=== PATIENT | female | born 1945 | race Caucasian/White ===

== ENCOUNTER 2019-11-04 10:08 | Outpatient (CLI) | payer MEDICARE, SELFPAY ==
--- NOTE | ~2019-11-04 | CT_ITS ---
EXAMINATION: CT sinus wo con DATE: 11/04/2019 10:40 INDICATION: Chronic sinusitis TECHNIQUE: Computed tomography (CT) of the paranasal sinuses was performed without intravenous contra st. The dose-length product was 278.92 mGy-cm. Automated exposure control and iterative reconstructio n technique were employed. COMPARISON: CT dated 04/13/2013 FINDINGS: There is mild mucosal thickening of the frontal, ethmoid, sphenoid and maxillary sinuses. T here is an air-fluid level in the left maxillary sinus. The ostiomeatal units are patent. Rightward n ken septal deviation. Mastoids are pneumatized. No ventriculomegaly or midline shift. IMPRESSION: 1. Pansinusitis with possible acute left maxillary sinusitis. 2: Rightward nasal septal deviation. Reviewed, dictated and finalized at location A.
== END 2019-11-04 10:09 | disposition home or self-care (01) ==
PROVIDERS: PCP Family Medicine; Visit Provider Otolaryngology
DX: J32.9 Chronic sinusitis, unspecified (principal); J01.40 Acute pansinusitis, unspecified; J34.2 Deviated nasal septum
CPT/HCPCS: 70486

== ENCOUNTER 2019-11-26 15:30 | Outpatient (CLI) | payer MEDICARE, SELFPAY ==
[2019-11-26 15:45] LABS: Hematocrit 44.5 % (35.0-42.0); Hemoglobin 14.5 g/dL (11.7-13.8); Mean Corpuscular HGB Conc 32.6 g/dL (32.0-36.0); Mean Corpuscular Hemoglobin 33.6 pg (27.0-31.0); Mean Corpuscular Volume 103.2 fL (78.0-102.0); Platelet Count Result 275 K/mm3 (150-420); Red Blood Count 4.31 M/mm3 (4.20-5.40); Red Cell Distribution Width 14.6 % (11.6-14.4); White Blood Count 9.1 K/mm3 (4.8-10.8)
[2019-11-26 16:26] LABS: Band Neutrophils Percent 0 % (0-6); Basophils Percent Manual 0 % (0-1); Eosinophils Absolute Manual 1.45 K/mm3 (0.02-0.5); Eosinophils Percent Manual 16 % (1-6); Lymphocytes Percent Manual 22 % (18-44); Monocytes Absolute Manual 0.72 K/mm3 (0.1-0.90); Monocytes Percent Manual 8 % (3-9); Neutrophils Absolute Manual 4.91 K/mm3 (1.7-7.2); Neutrophils Percent Manual 54 % (46-73); Total Cells Counted 100
[2019-11-26 16:27] LABS: Alanine Aminotransferase 25 U/L (14-59); Albumin Level 3.6 g/dL (3.4-5.0); Alkaline Phosphatase 102 U/L (46-116); Anion Gap 9.7 mmol/L (7-16); Aspartate Amino Transferase 22 U/L (15-37); Bilirubin,Total 0.2 mg/dL (0.00-1.00); Blood Urea Nitrogen 12 mg/dL (7-18); Calcium 9.2 mg/dL (8.5-10.1); Carbon Dioxide 31 mmol/L (21-32); Chloride 106 mmol/L (98-108); Estimated Glomerular Filt Rate 40; Glucose 97 mg/dL (70-99); Osmolality Calculated 293 mOsm/kg (285-295); Platelet Estimate Adequate (Adequate); Potassium 4.7 mmol/L (3.5-5.1); Sodium 142 mmol/L (136-145); Total Protein 6.6 g/dL (6.4-8.2)
== END 2019-11-26 15:31 | disposition home or self-care (01) ==
LOC: CHSLAB 15:35
PROVIDERS: PCP Family Medicine
DX: M35.3 Polymyalgia rheumatica (principal); Z79.899 Other long term (current) drug therapy
CPT/HCPCS: 36415; 80053; 85025

== ENCOUNTER 2020-02-20 11:36 | Outpatient (CLI) | payer MEDICARE, SELFPAY ==
[2020-02-20 11:54] LABS: Hematocrit 39.4 % (35.0-42.0); Hemoglobin 13.1 g/dL (11.7-13.8); Mean Corpuscular HGB Conc 33.2 g/dL (32.0-36.0); Mean Corpuscular Hemoglobin 34.2 pg (27.0-31.0); Mean Corpuscular Volume 102.9 fL (78.0-102.0); Mean Platelet Volume 10.9 fl (9.2-11.8); Platelet Count Result 254 K/mm3 (150-420); Red Blood Count 3.83 M/mm3 (4.20-5.40); Red Cell Distribution Width 16.7 % (11.6-14.4); White Blood Count 11.7 K/mm3 (4.8-10.8)
[2020-02-20 12:48] LABS: Alanine Aminotransferase 21 U/L (14-59); Albumin Level 2.9 g/dL (3.4-5.0); Alkaline Phosphatase 90 U/L (46-116); Anion Gap 12.5 mmol/L (7-16); Aspartate Amino Transferase 20 U/L (15-37); Bilirubin,Total 0.4 mg/dL (0.00-1.00); Blood Urea Nitrogen 23 mg/dL (7-18); Calcium 8.7 mg/dL (8.5-10.1); Carbon Dioxide 27 mmol/L (21-32); Chloride 106 mmol/L (98-108); Estimated Glomerular Filt Rate 37; Glucose 88 mg/dL (70-99); Osmolality Calculated 294 mOsm/kg (285-295); Potassium 4.5 mmol/L (3.5-5.1); Sodium 141 mmol/L (136-145)
[2020-02-20 13:29] LABS: Band Neutrophils Percent 0 % (0-6); Eosinophils Absolute Manual 1.87 K/mm3 (0.02-0.5); Eosinophils Percent Manual 16 % (1-6); Lymphocytes Absolute Manual 1.52 K/mm3 (1.1-4.5); Lymphocytes Percent Manual 13 % (18-44); Monocytes Absolute Manual 1.17 K/mm3 (0.1-0.90); Monocytes Percent Manual 10 % (3-9); Neutrophils Absolute Manual 7.13 K/mm3 (1.7-7.2); Neutrophils Percent Manual 61 % (46-73); Platelet Estimate Adequate (Adequate); Total Cells Counted 100
== END 2020-02-20 11:37 | disposition home or self-care (01) ==
PROVIDERS: PCP Family Medicine
DX: Z79.899 Other long term (current) drug therapy (principal)
CPT/HCPCS: 36415; 80053; 85025; 85610

== ENCOUNTER 2020-03-13 11:53 | Emergency (ER) | payer MEDICARE, SELFPAY ==
--- NOTE | ~2020-03-13 | CT_ITS ---
EXAMINATION: CT brain wo con EXAM DATE: 03/13/2020 12:31 INDICATION: Dizziness. TECHNIQUE: Spiral CT of the head was performed without contrast. Axial, coronal and sagittal images were reviewed. The dose-length product (DLP) for this examination was 681.00 mGy-cm. The exposure w as tailored according to patient size, and iterative reconstruction (ASIR) was used as additional dos e reduction technique. Comparison is made to prior examination from 11/04/2019. FINDINGS: There is no acute intraparenchymal hemorrhage. No evidence of intraparenchymal brain mass lesion. No evidence of acute infarction. Please note that initial head CT has limited sensitivity f or small or acute infarctions. 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 There is mild to moderate periventricular and subcortical hypodensity, nonspecific but probably rela baljeet to small vessel ischemic disease. There is mild to moderate prominence of the sulci and ventric les related to cerebral atrophy. There is intracranial carotid arteriosclerosis. There are no extr a-axial collections. There is no mass effect or midline shift. The orbits are unremarkable. Soft t issue is unremarkable. Mild to moderate ethmoid and maxillary sinus mucoperiosteal thickening. There is moderate amount of fluid in the right maxillary sinus, could indicate sinusitis. IMPRESSION: 1. 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 2. Chronic age related findings. 3. Right maxillary sinus air-fluid level, with mild to moderate mucoperiosteal thickening. Possible acute sinusitis. Reviewed, dictated and finalized at location A.
[2020-03-13 11:53] VITALS: BP 100/57; PULSE 140; RESP 18; TEMP 36.4; O2SAT 99
[2020-03-13] MEDS: SODIUM CHLORIDE 0.9% IV 1,000 ML 2000 ML IV CONT (12:05)
--- NOTE | 2020-03-13 12:06 | ECG_ITS ---
Measurements Intervals [place] Rate: 131 P: [place]: 0 QRS: 26 QRSD: 98 T: 89 QT: 309 QTc: 457 Interpretive Statements SUPRAVENTRICULAR TACHYCARDIA NONSPECIFIC ST & T-WAVE ABNORMALITY- DIFFUSE LEADS BASELINE ARTIFACT- I, II, III, AVR, AVL, AVF ABNORMAL ECG Electronically Signed On 03-15-2020 7:01:29 CDT by Andres Mcdonald D.O.
--- NOTE | 2020-03-13 12:10 | ED.GENADULT ---
HPI - General Adult General Chief complaint: Syncope Stated complaint: 74YO female w/ known h.o gait imbalance and celiac disease here c/o dry mouth and dizzines (worse than usual) after she was out last night and ate flour tortillas at a [employer] restaurant. Patient admits to multiple rounds of watery diarrhea followed by dry mouth after which she started feeling dizzy. Her home Bp machine showed she has a rapid pulse and a mildly elevated bp. Here for eval. Related Data Home Medications Medication Instructions Recorded Confirmed clonazepam 2 mg PO DAILY 03/13/20 03/13/20 famotidine 40 mg PO DAILY 03/13/20 03/13/20 levothyroxine 100 mcg PO DAILY 03/13/20 03/13/20 losartan 25 mg PO DAILY 03/13/20 03/13/20 methotrexate sodium See Rx Instructions .ROUTE .COMPLEX 03/13/20 03/13/20 pantoprazole 40 mg PO DAILY 03/13/20 03/13/20 pilocarpine HCl 5 mg PO TID 03/13/20 03/13/20 rivaroxaban [Xarelto] 10 mg PO DAILY 03/13/20 03/13/20 sertraline 100 mg PO DAILY 03/13/20 03/13/20 Allergies Allergy/AdvReac Type Severity Reaction Status Date / Time No Known Allergies Allergy Unverified 12/04/18 09:21 Review of Systems Review of Systems: All systems reviewed & are unremarkable except as noted in HPI and below Constitutional: Constitutional: Reports as per HPI Eyes: Eyes: Reports as per HPI ENT: Reports dizziness (Gait Imbalance) Cardiovascular: Cardiovascular: Reports as per HPI and Reports rapid heart rate Respiratory: Respiratory: Reports as per HPI Gastrointestinal: Gastrointestinal: Reports no additional gastrointestinal complaints and Reports diarrhea Genitourinary: Genitourinary: Reports no additional female genitourinary complaints Musculoskeletal: Musculoskeletal: Reports no additional musculoskeletal complaints Integumentary/Breasts: Skin/Breast: Reports system reviewed and no additional complaints, except as docu Neurologic: Reports dizziness (Gait Imbalance) Psychiatric: Psychiatric: Reports no additional psychiatric complaints Endocrine: Endocrine: Reports no additional endocrine complaints Hematologic/Lymphatic: Hematologic/Lymphatic: Reports no additional hematologic/lymphatic complaints [facility] Past Medical History Medical History (Updated 03/13/20 @ 14:58 by Delta Pollock MD) Anxiety Celiac disease Gait instability GERD (gastroesophageal reflux disease) Hypertension Hypothyroidism Exam Const: General: no acute distress and alert Orientation/consciousness: patient oriented x3 HENMT: Head: normal to inspection Mouth: Yes dry mucous membranes Eyes: Pupils: Equal, round and reactive pupils present Neck: Neck: normal visual inspection Chest: Chest palpation & inspection: normal inspection of the chest Resp: Effort & Inspection: normal respiratory effort Cardio: Rate: tachycardic GI: Inspection: non-distended GI Palp: Yes Soft to palpation, No Tenderness to palpation present (GI), No Guarding due to palpation present (GI) and No Rigid due to palpation Percussion: Yes normal to percussion : General: Yes no CVA tenderness Back/Spine/Pelvis: Back: no CVA tenderness Skin: General skin exam: normal color Neuro: General: patient oriented x3, moves all extremities, no meningeal signs, no focal motor deficits and CN's II-XI intact bilaterally Cranial nerves: Yes Nystagmus not present Speech: normal speech Extrem: General: normal to inspection Psych: Mental Status: mental status grossly normal Thought content: Yes Normal thought content present Course Course Emergency Course: Patient admits to feeling better. MM improved, now moist. Dizziness resolved Medical Decision Making Differential Diagnosis Differential Diagnosis: Dehydration, Dizziness, R/O WELT INSOLE CHANNELER and Cardiac Etiol. Medical Records Medical records reviewed: Yes I reviewed the patient's medical records. Lab Data Lab results reviewed: Yes I reviewed the patient's lab results. Critical Care Time Critical Care Time
[2020-03-13 12:29] LABS: Basophils Absolute Auto 0.02 K/mm3 (0.00-0.10); Basophils Percent Auto 0.3 % (0.0-1.0); Eosinophils Absolute Auto 0.86 K/mm3 (0.02-0.50); Eosinophils Percent Auto 12.8 % (1.0-6.0); Hematocrit 38.3 % (35.0-42.0); Hemoglobin 12.4 g/dL (11.7-13.8); Immature Granulocyte Absolute 0.02 K/mm3 (0.00-0.00); Immature Granulocyte Percent A 0.3 % (0.0-0.0); Lymphocytes Absolute Auto 1.22 K/mm3 (1.10-4.50); Lymphocytes Percent Auto 18.2 % (18.0-42.0); Mean Corpuscular HGB Conc 32.4 g/dL (32.0-36.0); Mean Corpuscular Hemoglobin 33.8 pg (27.0-31.0); Mean Corpuscular Volume 104.4 fL (78.0-102.0); Mean Platelet Volume 10.8 fl (9.2-11.8); Monocytes Absolute Auto 0.62 K/mm3 (0.10-0.90); Monocytes Percent Auto 9.3 % (2.0-11.0); Neutrophils Percent Auto 59.1 % (50.0-70.0); Platelet Count Result 369 K/mm3 (150-420); Red Blood Count 3.67 M/mm3 (4.20-5.40); Red Cell Distribution Width 16.2 % (11.6-14.4); White Blood Count 6.7 K/mm3 (4.8-10.8)
[2020-03-13 12:33] VITALS: BP 104/58; PULSE 124; RESP 16; O2SAT 95
[2020-03-13 12:36] LABS: Partial Thromboplastin Time 32.5 SEC (22.3-31.6); Prothrombin Time 10.5 Seconds (9.64-11.0)
[2020-03-13 12:41] LABS: Alanine Aminotransferase 24 U/L (14-59); Albumin Level 2.7 g/dL (3.4-5.0); Alkaline Phosphatase 80 U/L (46-116); Aspartate Amino Transferase 27 U/L (15-37); Bilirubin,Total 0.4 mg/dL (0.00-1.00); Blood Urea Nitrogen 14 mg/dL (7-18); Calcium 8.3 mg/dL (8.5-10.1); Carbon Dioxide 26 mmol/L (21-32); Chloride 106 mmol/L (98-108); Estimated Glomerular Filt Rate 34; Glucose 138 mg/dL (70-99); Lipase 43 U/L (73-393); Osmolality Calculated 290 mOsm/kg (285-295); Sodium 139 mmol/L (136-145)
[2020-03-13 12:46] LABS: Troponin I < 0.02 ng/mL (0.00-0.056)
[2020-03-13 13:03] VITALS: BP 117/76; PULSE 120; RESP 18; O2SAT 99
[2020-03-13] MEDS: SODIUM CHLORIDE 0.9% IV 1,000 ML 999 ML IV CONT (13:05)
--- NOTE | 2020-03-13 13:30 | PC.NURSE ---
Pt ambulatory to bathroom pt states she is feeling much better. at bedside.
[2020-03-13 13:48] LABS: Add Urine Microscopic? YES; Appearance Urine Clear (Clear); Bilirubin Urine Negative (Negative); Blood Urine Negative (Negative); Color Urine Yellow (Yellow); Glucose Urine UA Negative (Negative); Ketones Urine Negative (Negative); Leukocyte Esterase Ur Negative LEU/UL (Negative); Nitrate Urine Positive (Negative); Protein Urine Negative (Negative); Urobilinogen Urine 0.2 mg/dL (0.2-1.0)
[2020-03-13 14:00] LABS: RBC Urine 0-2 /hpf (0-2)
[2020-03-13 14:01] LABS: Bacteria Urine 1+ /hpf; Squamous Epithelial Cell Urine Few /hpf (Few); WBC Urine 0-3 /hpf (0-3)
[2020-03-13 14:34] VITALS: BP 149/80; PULSE 70; RESP 16; O2SAT 95
== END 2020-03-13 15:10 | disposition home or self-care (01) ==
PROVIDERS: Emergency Provider Family Medicine; PCP Family Medicine
DX: K90.0 Celiac disease (principal); R19.7 Diarrhea, unspecified; R82.90 Unspecified abnormal findings in urine
CPT/HCPCS: 36415; 70450; 80053; 81001; 83690; 84484; 85025; 85610; 85730; 87077; 87086; 87088; 87186; 93005; 96360; 96361; 99283; 99284; J7030

== ENCOUNTER 2020-03-29 11:04 | Outpatient (CLI) | payer MEDICARE, SELFPAY ==
--- NOTE | ~2020-03-29 | CT_ITS ---
EXAMINATION: CT chest wo con DATE: 03/29/2020 11:48 INDICATION: Cough, possible bronchiectasis TECHNIQUE: Computed tomography (CT) of the chest was performed without intravenous contrast. The dose -length product (DLP) was 171.69 mGy-cm. Automated exposure control and iterative reconstruction tech DP7 Digitalque were employed. COMPARISON: 08/26/2019, 11/23/2018 FINDINGS: The lungs are free of acute opacities. There is no pleural effusion or pneumothorax. Nodule s measuring up to 5 mm in the right middle lobe are stable and most consistent with old granulomatous disease. There is mild bronchiectasis of the lower lobes, right greater than left, likely related to prior infections. No pleural effusion or pneumothorax is identified. There is a chronic small perica rdial effusion. Cardiomegaly is noted. There are no pathologically enlarged thoracic lymph nodes. The re is calcified coronary artery atherosclerosis. Breast implants are noted. There is severe atrophy o f the right kidney. There is mild thoracic spondylosis. IMPRESSION: 1. Mild bronchiectasis of the lower lobes, likely reflecting prior infection. 2. Cardiomegaly. Reviewed, dictated and finalized at location A.
== END 2020-03-29 11:05 | disposition home or self-care (01) ==
LOC: CHSIMG 11:07
PROVIDERS: PCP Family Medicine; Visit Provider Nurse Practitioner
DX: J47.9 Bronchiectasis, uncomplicated (principal)
CPT/HCPCS: 71250

== ENCOUNTER 2020-03-30 11:04 | Outpatient (CLI) | payer MEDICARE, SELFPAY ==
[2020-03-30 11:19] LABS: Basophils Absolute Auto 0.05 K/mm3 (0.00-0.10); Basophils Percent Auto 0.7 % (0.0-1.0); Eosinophils Absolute Auto 0.48 K/mm3 (0.02-0.50); Eosinophils Percent Auto 6.9 % (1.0-6.0); Hematocrit 40.1 % (35.0-42.0); Hemoglobin 12.8 g/dL (11.7-13.8); Immature Granulocyte Absolute 0.02 K/mm3 (0.00-0.00); Immature Granulocyte Percent A 0.3 % (0.0-0.0); Lymphocytes Absolute Auto 1.74 K/mm3 (1.10-4.50); Lymphocytes Percent Auto 25.2 % (18.0-42.0); Mean Corpuscular HGB Conc 31.9 g/dL (32.0-36.0); Mean Corpuscular Hemoglobin 33.7 pg (27.0-31.0); Mean Corpuscular Volume 105.5 fL (78.0-102.0); Mean Platelet Volume 10.2 fl (9.2-11.8); Monocytes Absolute Auto 0.66 K/mm3 (0.10-0.90); Monocytes Percent Auto 9.6 % (2.0-11.0); Neutrophils Percent Auto 57.3 % (50.0-70.0); Platelet Count Result 354 K/mm3 (150-420); Red Cell Distribution Width 15.6 % (11.6-14.4); White Blood Count 6.9 K/mm3 (4.8-10.8)
== END 2020-03-30 11:05 | disposition home or self-care (01) ==
LOC: CHSLAB 11:05
PROVIDERS: PCP Nurse Practitioner; Visit Provider Nurse Practitioner
DX: J32.9 Chronic sinusitis, unspecified (principal); J47.9 Bronchiectasis, uncomplicated
CPT/HCPCS: 36415; 82785; 85025; 86003; 86331; 86606; 86609

== ENCOUNTER 2020-04-08 11:57 | Outpatient (CLI) | payer MEDICARE, SELFPAY ==
[2020-04-08 13:21] LABS: Thyroid Stimulating Hormone 2.27 uIU/mL (0.36-3.74)
== END 2020-04-08 11:58 | disposition home or self-care (01) ==
LOC: CHSLAB 12:00
PROVIDERS: PCP Family Medicine
DX: E03.9 Hypothyroidism, unspecified (principal)
CPT/HCPCS: 36415; 84443

== ENCOUNTER 2020-06-22 13:18 | Inpatient (IN) | payer MEDICARE, SELFPAY ==
--- NOTE | ~2020-06-22 | CT_ITS ---
EXAMINATION: CT abdomen pelvis wo con DATE: 06/22/2020 16:05 INDICATION: Diarrhea. Abdominal pain. TECHNIQUE: Computed tomography (CT) of the abdomen and pelvis was performed without intravenous contr ast. Automated exposure control and iterative reconstruction technique were employed. The dose-length product was 576.71 mGy-cm. COMPARISON: None. FINDINGS: The visualized portions of the lung bases demonstrates mild atelectasis and scarring. There is mild bronchiectasis bilaterally. No pleural effusion. The heart size is normal. No pericardial ef fusion. There are bilateral breast implants. The liver is normal. The gallbladder is distended. The s pleen, pancreas, and adrenal glands are normal. There is severe atrophy of right kidney. There are 4 stones in right kidney measuring up to 4 mm. There is cortical thinning of left kidney. There is a 2. 1 cm cyst in left kidney. There are no dilated loops of bowel. The appendix is not visualized. There is an umbilical hernia containing fat. There are no pathologically enlarged lymph nodes. There is no free intraperitoneal fluid. There is mild lumbar spondylosis. IMPRESSION: 1. Gallbladder distention, which may be seen with fasting or acute cholecystitis. Correlate with phys ical exam. 2. Umbilical hernia containing fat. Reviewed, dictated and finalized at location B. SETTERS PRINTER IMPRESSION: 1. Gallbladder distention, which may be seen with fasting or acute cholecystiti s. Correlate with physical exam. 2. Umbilical hernia containing fat.
--- NOTE | ~2020-06-22 | XR_ITS ---
EXAMINATION: XR chest 2V EXAM DATE: 06/22/2020 14:16 INDICATION: diarrhea x 1 week, heart recorder, weakness. TECHNIQUE: Frontal and lateral projections of the chest obtained and reviewed. Comparison is made to prior examination from 12/04/2018, 11/23/2018. FINDINGS: Cardiac monitoring device. Moderate chronic hyperinflation. The lungs are clear. There ar e no pleural effusions. The cardiomediastinal silhouette is within normal limits. There is no pneum othorax suspected. There are mild bony degenerative changes. There is aortic arteriosclerosis. IMPRESSION: 1. No acute cardiopulmonary findings. 2. Hyperinflation. Reviewed, dictated and finalized at location A. ORARY DATA ENTRY CLERK
[2020-06-22 13:25] VITALS: BP 76/52; PULSE 98; RESP 14; TEMP 37; O2SAT 95
[2020-06-22 13:30] VITALS: BP 131/105
--- NOTE | 2020-06-22 13:34 | ED.WEAKNESS ---
HPI - Weakness General Chief complaint: Nausea/Vomiting/Diarrhea Stated complaint: very fatigue fell this am Time Seen by Provider: 06/22/20 13:20 Source: patient Mode of arrival: wheelchair Limitations: no limitations History of Present Illness HPI Narrative: 74-year-old woman with a history of celiac disease comes in today complaining of worsening diarrhea for last week. Patient states last 24 hours was the worst. She states that she has felt weak and even had falls from the weakness. She denies injury. She states that she has had no blood in her stools, nausea, vomiting or cough/cold symptoms or sore throat. She states that she does have some moderate abdominal pain through the duration of this illness. She had some chest discomfort about one week ago, but she attributed that to recent problems she has had with her breast implants. No chest pain or pressure since. She was diagnosed with COVID-19 last month and was managed at home. MD Complaint: generalized weakness Onset (ago): week(s) (1) Duration: progressively worsening Location: generalized Migration: none Severity: moderate Relieving factors: none Exacerbating factors: none Context: recent illness Associated symptoms: other ( Mild right-sided sore throat) Related Data Home Medications Medication Instructions Recorded Confirmed clonazepam 1 mg PO HS PRN 03/13/20 06/22/20 levothyroxine 100 mcg PO DAILY 03/13/20 06/22/20 losartan 25 mg PO DAILY 03/13/20 06/22/20 methotrexate sodium 15 mg PO WEEKLY 03/13/20 06/22/20 pilocarpine HCl 5 mg PO TID 03/13/20 06/22/20 rivaroxaban [Xarelto] 10 mg PO DAILY 03/13/20 06/22/20 sertraline 100 mg PO DAILY 03/13/20 06/22/20 albuterol sulfate [ProAir HFA] 1 inh INHALATION QID PRN 06/22/20 06/22/20 budesonide-formoterol [Symbicort] 2 puff INHALATION BID 06/22/20 06/22/20 calcium carbonate-vitamin D3 [All 1 tablet PO BID 06/22/20 06/22/20 Day Calcium] cholecalciferol (vitamin D3) 10 mcg PO DAILY 06/22/20 06/22/20 [Vitamin D3] docosahexaenoic [id number] E 1,000 cap PO DAILY 06/22/20 06/22/20 [Cardi-Ethel 3] [id number]-[id number]-[id number]-fob-[id number]-st 1 cap PO BID 06/22/20 06/22/20 [Glucosamine Chondroitin PLUS] magnesium 2 tablet PO BID 06/22/20 06/22/20 multivitamin [Daily-Prieto W/Vitamin 1 tablet PO BID 06/22/20 06/22/20 C] omeprazole 20 mg PO DAILY 06/22/20 06/22/20 oxybutynin chloride 10 mg PO DAILY 06/22/20 06/22/20 ropinirole 0.25 mg PO HS 06/22/20 06/22/20 valacyclovir 2,000 mg PO BID 06/22/20 06/22/20 Allergies Allergy/AdvReac Type Severity Reaction Status Date / Time No Known Allergies Allergy Unverified 12/04/18 09:21 Review of Systems Constitutional: Constitutional: Denies chills, Reports fatigue, Denies fever(s) and Reports weakness Eyes: Eyes: Denies change in vision and Denies photophobia ENT: Reports as per HPI, Denies dysphagia, Denies nasal congestion and Reports sore throat Cardiovascular: Cardiovascular: Denies chest pain and Denies radiating jaw, neck or arm pain Respiratory: Respiratory: Reports cough ( for the last year), Denies dyspnea and Denies wheezing Gastrointestinal: Gastrointestinal: Reports abdominal pain, Reports diarrhea, Denies nausea and Denies vomiting Genitourinary: Genitourinary: Denies hematuria, Denies nocturia and Denies dysuria Musculoskeletal: Musculoskeletal: Denies arthralgias and Denies joint swelling Integumentary/Breasts: Skin/Breast: Denies pruritus, Denies erythema and Denies rash Neurologic: Denies vertigo, Reports dizziness and Denies syncope Hematologic/Lymphatic: Hematologic/Lymphatic: Denies easy bleeding and Denies easy bruising Allergic/Immunologic: Allergic/Immunologic: Denies lip swelling, Denies throat swelling and Denies tongue swelling [facility] Past Medical History Medical History (Updated 06/22/20 @ 19:35 by Ferny Sosa MD) Anxiety Celiac disease DVT (deep venous thrombosis) Gait instability GERD (gastroesophageal reflux disease) Hypertension
--- NOTE | 2020-06-22 13:41 | ECG_ITS ---
Measurements Intervals [place] Rate: 103 P: 6 [place]: 145 QRS: 59 QRSD: 82 T: 33 QT: 348 QTc: 457 Interpretive Statements SINUS TACHYCARDIA NONSPECIFIC T-WAVE ABNORMALITY- INF/HIGH LAT LEADS BASELINE ARTIFACT- II, III, AVF ABNORMAL ECG Electronically Signed On 06-22-2020 15:05:19 DOCK HAND by Andres Mcdonald D.O.
[2020-06-22 14:13] LABS: Hematocrit 47.6 % (35.0-42.0); Hemoglobin 15.5 g/dL (11.7-13.8); Mean Corpuscular HGB Conc 32.6 g/dL (32.0-36.0); Mean Corpuscular Volume 101.5 fL (78.0-102.0); Mean Platelet Volume 11.7 fl (9.2-11.8); Platelet Count Result 312 K/mm3 (150-420); Red Blood Count 4.69 M/mm3 (4.20-5.40); Red Cell Distribution Width 16.3 % (11.6-14.4); White Blood Count 15.3 K/mm3 (4.8-10.8)
[2020-06-22 14:26] LABS: INR 1.2; Partial Thromboplastin Time 23.8 SEC (22.3-31.6); Prothrombin Time 12.7 Seconds (9.64-11.0)
[2020-06-22] MEDS: SODIUM CHLORIDE 0.9% IV 1,000 ML 999 ML IV CONT (14:30)
[2020-06-22 14:31] LABS: Alanine Aminotransferase 16 U/L (14-59); Alkaline Phosphatase 114 U/L (46-116); Anion Gap 15 mmol/L (8-16); Aspartate Amino Transferase 11 U/L (15-37); Bilirubin,Total 0.4 mg/dL (0.00-1.00); Blood Urea Nitrogen 25 mg/dL (7-18); Calcium 8.6 mg/dL (8.5-10.1); Carbon Dioxide 19 mmol/L (21-32); Chloride 100 mmol/L (98-108); Estimated CRCL calculation 13 ml/min; Estimated Glomerular Filt Rate 12; Glucose 145 mg/dL (70-99); Lipase 32 U/L (73-393); Osmolality Calculated 285 mOsm/kg (285-295); Potassium 4.3 mmol/L (3.5-5.1); Sodium 134 mmol/L (136-145); Total Protein 7.1 g/dL (6.4-8.2)
[2020-06-22 14:34] LABS: Lactic Acid Reflex 1.8 mmol/L (0.4-2.0)
[2020-06-22 14:38] LABS: Troponin I 0.19 ng/mL (0.00-0.056)
[2020-06-22 14:40] LABS: Band Neutrophils Percent 0 % (0-6); Basophils Percent Manual 0 % (0-1); Eosinophils Absolute Manual 1.07 K/mm3 (0.02-0.5); Eosinophils Percent Manual 7 % (1-6); Lymphocytes Absolute Manual 1.68 K/mm3 (1.1-4.5); Lymphocytes Percent Manual 11 % (18-44); Monocytes Absolute Manual 0.91 K/mm3 (0.1-0.90); Monocytes Percent Manual 6 % (3-9); Neutrophils Absolute Manual 11.62 K/mm3 (1.7-7.2); Neutrophils Percent Manual 76 % (46-73); Platelet Estimate Adequate (Adequate); Total Cells Counted 100
--- NOTE | 2020-06-22 15:36 | PC.NURSE ---
DR ONEYDA YOUNG CALLED FOR CONSULT - [facility]
--- NOTE | 2020-06-22 16:24 | PC.NURSE ---
RN CONTACTED CHARGE NURSE, JOSE, TO REQUEST INPATIENT BED. ROOM 209 PROVIDED. REGISTRATION NOTIFIED.
[2020-06-22 16:39] VITALS: BP 109/62; PULSE 90; RESP 17; O2SAT 95
[2020-06-22 17:19] VITALS: BMI 23.1
[2020-06-22 17:24] LABS: Troponin I 0.22 ng/mL (0.00-0.056)
--- NOTE | 2020-06-22 17:27 | PC.NURSE ---
erp aware of trop being 0.223. denies chest pain
[2020-06-22 17:37] VITALS: BP 102/71; PULSE 102; RESP 18; TEMP 37; O2SAT 94
[2020-06-22] MEDS: valACYclovir HCL 500 MG TABLET 2000 MG PO (17:54)
[2020-06-22] MEDS: SODIUM CHLORIDE 0.9% IV 1,000 ML 200 ML IV CONT ×2 (17:54→23:37)
[2020-06-22] MEDS: MULTIVITAMINS THERAPEUTIC TAB (*BKC) 1 TABLET PO (17:55)
[2020-06-22] MEDS: BUDESONIDE/FORMOTEROL (*SP) 160-4.5 MCG 6 GM INH 2 PUFF INHALATION (17:55)
[2020-06-22 19:00] VITALS: PULSE 110
--- NOTE | 2020-06-22 19:42 | ECG_ITS ---
Measurements Intervals [place] Rate: 102 P: 4 AL: 142 QRS: -5 QRSD: 88 T: 130 QT: 340 QTc: 445 Interpretive Statements SINUS TACHYCARDIA NONSPECIFIC T-WAVE ABNORMALITY- DIFFUSE LEADS BASELINE ARTIFACT- II, III, AVF BORDERLINE ECG Electronically Signed On 06-23-2020 8:50:18 AUTOMOTIVE HEAVY MECHANIC by Andres Mcdonald D.O.
[2020-06-22 20:00] VITALS: BP 99/56; PULSE 98; RESP 18; TEMP 37.4; O2SAT 95
[2020-06-22 20:18] LABS: Anion Gap 12 mmol/L (8-16); Blood Urea Nitrogen 27 mg/dL (7-18); Calcium 7.7 mg/dL (8.5-10.1); Carbon Dioxide 20 mmol/L (21-32); Chloride 104 mmol/L (98-108); Estimated CRCL calculation 11 ml/min; Estimated Glomerular Filt Rate 11; Glucose 122 mg/dL (70-99); Osmolality Calculated 288 mOsm/kg (285-295); Potassium 3.9 mmol/L (3.5-5.1); Sodium 136 mmol/L (136-145)
--- NOTE | 2020-06-22 20:32 | PC.NURSE ---
critical creatinine called to dr. smith. no new orders.
[2020-06-22 20:35] LABS: Troponin I 0.18 ng/mL (0.00-0.056)
[2020-06-22] MEDS: rOPINIRole HCL 0.25 MG TABLET PO (21:11)
[2020-06-23] VITALS (8 sets, daily range): BP systolic 112–128; BP diastolic 70–74; PULSE 70–94; RESP 16–20; TEMP 36.6–37.1; O2SAT 93–98
[2020-06-23 00:54] LABS: Occult Blood Negative (Negative)
[2020-06-23] MEDS: clonazePAM (*CRX) 0.5 MG TABLET 1 MG PO (01:13)
[2020-06-23 02:19] LABS: Troponin I 0.23 ng/mL (0.00-0.056)
--- NOTE | 2020-06-23 02:20 | PC.NURSE ---
Lab called to report critical high troponin value of 0.23.
--- NOTE | 2020-06-23 02:22 | PC.NURSE ---
Called to report critical troponin value to Dr. Sosa. No new orders.
--- NOTE | 2020-06-23 02:24 | PC.NURSE ---
Dr. Sosa called back and gave orders for a brar catheter to be placed. New orders received and noted.
--- NOTE | 2020-06-23 03:15 | PC.NURSE ---
#16 fr. brar inserted without difficulioty, per order.
--- NOTE | 2020-06-23 03:30 | PC.NURSE ---
Urine to lab.
[2020-06-23 03:33] LABS: Add Urine Microscopic? YES; Appearance Urine Clear (Clear); Bilirubin Urine 1+ (Negative); Blood Urine Negative (Negative); Color Urine Yellow (Yellow); Glucose Urine UA Negative (Negative); Ketones Urine Negative (Negative); Leukocyte Esterase Ur Negative LEU/UL (Negative); Nitrate Urine Negative (Negative); Protein Urine Trace (Negative); Specific Grav Ur >= 1.030 (1.010-1.020); Urobilinogen Urine 0.2 mg/dL (0.2-1.0)
[2020-06-23 03:41] LABS: Amorphous Sediment Urine Few; Bacteria Urine 1+ /hpf; RBC Urine 0-2 /hpf (0-2); Squamous Epithelial Cell Urine None seen /hpf (Few); WBC Urine 0-3 /hpf (0-3)
[2020-06-23 05:33] LABS: Hematocrit 37.5 % (35.0-42.0); Mean Corpuscular Hemoglobin 32.4 pg (27.0-31.0); Mean Corpuscular Volume 101.4 fL (78.0-102.0); Platelet Count Result 252 K/mm3 (150-420); Red Cell Distribution Width 16.3 % (11.6-14.4); White Blood Count 15.3 K/mm3 (4.8-10.8)
[2020-06-23] MEDS: LEVOTHYROXINE SODIUM 100 MCG TABLET PO (05:36)
[2020-06-23] MEDS: SODIUM CHLORIDE 0.9% IV 1,000 ML 200 ML IV CONT (05:36)
[2020-06-23 05:54] LABS: Alanine Aminotransferase 13 U/L (14-59); Albumin Level 2.4 g/dL (3.4-5.0); Alkaline Phosphatase 88 U/L (46-116); Anion Gap 10 mmol/L (8-16); Aspartate Amino Transferase 11 U/L (15-37); Bilirubin,Total 0.3 mg/dL (0.00-1.00); Blood Urea Nitrogen 27 mg/dL (7-18); Calcium 7.6 mg/dL (8.5-10.1); Carbon Dioxide 22 mmol/L (21-32); Chloride 106 mmol/L (98-108); Estimated CRCL calculation 14 ml/min; Estimated Glomerular Filt Rate 14; Glucose 94 mg/dL (70-99); Osmolality Calculated 291 mOsm/kg (285-295); Sodium 138 mmol/L (136-145); Total Protein 5.6 g/dL (6.4-8.2)
[2020-06-23 05:56] LABS: Lactic Acid Reflex 0.7 mmol/L (0.4-2.0)
[2020-06-23 06:11] LABS: Troponin I 0.21 ng/mL (0.00-0.056)
--- NOTE | 2020-06-23 06:12 | PC.NURSE ---
Lab called to report critical troponin value of 0.21.
[2020-06-23 06:17] LABS: Band Neutrophils Percent 0 % (0-6); Eosinophils Absolute Manual 2.29 K/mm3 (0.02-0.5); Eosinophils Percent Manual 15 % (1-6); Lymphocytes Absolute Manual 1.83 K/mm3 (1.1-4.5); Lymphocytes Percent Manual 12 % (18-44); Monocytes Absolute Manual 1.53 K/mm3 (0.1-0.90); Monocytes Percent Manual 10 % (3-9); Neutrophils Absolute Manual 9.63 K/mm3 (1.7-7.2); Neutrophils Percent Manual 63 % (46-73); Platelet Estimate Adequate (Adequate); Total Cells Counted 100
--- NOTE | 2020-06-23 06:18 | PC.NURSE ---
Notified Dr. Sosa of pt's critical high troponin of 0.21; No new orders at this time.
--- NOTE | 2020-06-23 06:30 | PC.NURSE ---
Stools remain loose & mucus in them.
[2020-06-23] MEDS: valACYclovir HCL 500 MG TABLET 2000 MG PO (08:54)
[2020-06-23] MEDS: MAGNESIUM OXIDE 400 MG TABLET 800 MG PO ×2 (08:55→20:42)
[2020-06-23] MEDS: PANTOPRAZOLE 40 MG TABLET PO (08:55)
[2020-06-23] MEDS: RIVAROXABAN 10 MG TABLET PO (08:55)
[2020-06-23] MEDS: CHOLECALCIFEROL 400 UNITS TABLET (VIT D) PO (08:55)
[2020-06-23] MEDS: MULTIVITAMINS THERAPEUTIC TAB (*BKC) 1 TABLET PO ×2 (08:56→20:35)
[2020-06-23] MEDS: SERTRALINE HCL 50 MG TABLET 100 MG PO (08:56)
[2020-06-23] MEDS: CALCIUM/VITAMIN D 250 MG TABLET 1 TABLET PO ×2 (08:56→16:38)
[2020-06-23] MEDS: BUDESONIDE/FORMOTEROL (*SP) 160-4.5 MCG 6 GM INH 2 PUFF INHALATION ×2 (08:56→16:38)
--- NOTE | 2020-06-23 09:23 | PM.IMHP ---
H&P: HPI History of Present Illness Date/Time: 06/23/20 09:23 Chief complaint: acute renal failure elevated troponin Narrative: Diane Silva is a 74 year old female who has a history of celiac sprue and diarrhea that has been lasting for approximately week. Patient states she has a long history of feeling off balance and states that nothing has been done about it. Patient denies any blood in her stool, no N/V, no fevers, and states she has never been told she has had kidney problems. He admits to some abdominal cramping. Patient admits to chest pressure a came and went about a week ago. And according to ER report she was COVID positive about 1 month ago. Review of Systems Constitutional: Constitutional: Denies body ache(s), Denies chills, Denies fatigue, Denies fever(s) and Reports other (Has been feeling off balance for a long time) Cardiovascular: Cardiovascular: Denies chest pain, Denies chest pain at rest and Denies chest pain with activity Comments: as noted in HPI at chest pressure but this is no longer present Respiratory: Respiratory: Reports no additional respiratory complaints, Denies chest congestion, Denies cough, Denies dyspnea and Denies dyspnea on exertion Gastrointestinal: Gastrointestinal: Reports as per HPI Genitourinary: Genitourinary: Reports no additional female genitourinary complaints Neurologic: Reports as per HPI [facility] Past Medical History Medical History (Updated 06/23/20 @ 09:44 by MERT Blue) Anxiety Celiac disease DVT (deep venous thrombosis) Gait instability GERD (gastroesophageal reflux disease) Hypertension Hypothyroidism Surgical History Surgical History H/O shoulder surgery History of appendectomy History of Family History Family History Father Cerebrovascular accident Social History Social History Smoking status: Never smoker Alcohol intake: current Drinks per week: 1 Substance use: never Substance use type: does not use Living arrangements: with family Gender identity (if verbalized by the patient): Female Sexual Orientation (if Verbalized by the Patient): Straight or Heterosexual Spiritual care concerns: No Meds Home Medications and Allergies Home Medications Medication Instructions Recorded Confirmed Type clonazepam 1 mg PO HS PRN 03/13/20 06/22/20 History levothyroxine 100 mcg PO DAILY 03/13/20 06/22/20 History losartan 25 mg PO DAILY 03/13/20 06/22/20 History methotrexate sodium 15 mg PO WEEKLY 03/13/20 06/22/20 History pilocarpine HCl 5 mg PO TID 03/13/20 06/22/20 History rivaroxaban [Xarelto] 10 mg PO DAILY 03/13/20 06/22/20 History sertraline 100 mg PO DAILY 03/13/20 06/22/20 History albuterol sulfate [ProAir HFA] 1 inh INHALATION QID PRN 06/22/20 06/22/20 History budesonide-formoterol [Symbicort] 2 puff INHALATION BID 06/22/20 06/22/20 History calcium carbonate-vitamin D3 [All 1 tablet PO BID 06/22/20 06/22/20 History Day Calcium] cholecalciferol (vitamin D3) 10 mcg PO DAILY 06/22/20 06/22/20 History [Vitamin D3] docosahexaenoic beiz-hgb-kfh E 1,000 cap PO DAILY 06/22/20 06/22/20 History [Cardi-[place] 3] ludf-[id number]-[id number]-uic-jkf-bjne-st 1 cap PO BID 06/22/20 06/22/20 History [Glucosamine Chondroitin PLUS] magnesium 2 tablet PO BID 06/22/20 06/22/20 History multivitamin [Daily-Prieto W/Vitamin 1 tablet PO BID 06/22/20 06/22/20 History C] omeprazole 20 mg PO DAILY 06/22/20 06/22/20 History oxybutynin chloride 10 mg PO DAILY 06/22/20 06/22/20 History ropinirole 0.25 mg PO HS 06/22/20 06/22/20 History valacyclovir 2,000 mg PO BID 06/22/20 06/22/20 History Allergies Allergy/AdvReac Type Severity Reaction Status Date / Time No Known Allergies Allergy Unverified 12/04/18 09:21 Vital Signs Vital Signs - 24 hr 06/22/20 13:2
[2020-06-23] MEDS: LOPERAMIDE HCL 2 MG CAPSULE PO ×3 (10:00→22:15)
[2020-06-23] MEDS: MECLIZINE HCL 25 MG TABLET PO ×2 (10:11→20:30)
--- NOTE | 2020-06-23 10:28 | PC.NURSE ---
pt misunderstood the need for stool sample and took hat out of toliet and then flushed. but did put call light on to tell us she had bm
[2020-06-23] MEDS: SODIUM CHLORIDE 0.9% IV 1,000 ML 70 ML IV CONT (17:00)
--- NOTE | 2020-06-23 17:23 | PC.NURSE ---
patient had sm loose stool at this time. requests prn for loose stools but c/o that it makes her itch and manager global said to ask for benedryl on next need for imodium. patient claims stomach is feeling more bloated and has a sour feeling in belly and with that a very large exsplosive emesis. erp aware of of above and new orders. claims after emesis still feels like there is something in back of throat and still feels a little n/v. sitting up in recliner.
--- NOTE | 2020-06-23 17:51 | PC.NURSE ---
MD notified that patient continues to c/o nausea and abd pain. Patient had diarrhea and emisis that appear the same watery brown liquid with some food particles present. New order to monitor and report if problem continues.
[2020-06-23] MEDS: diphenhydrAMINE HCl INJ 50 MG/ML VIAL (18:12)
[2020-06-23] MEDS: ONDANSETRON INJ 4 MG/2 ML VIAL (18:14)
--- NOTE | 2020-06-23 20:56 | PC.NURSE ---
claims stomach at this time is sore but not nauseated. abd still bloated feeling. flushed toliet but claims sm amt of loose stool. requests all of mena meds and prn imodium. sips on chicken broth and jello. talks on phone. ivf cont. maykel has sirisha urine.
[2020-06-23] MEDS: rOPINIRole HCL 0.5 MG TABLET 0.25 MG PO (22:12)
[2020-06-23] MEDS: diphenhydrAMINE HCl INJ 50 MG/ML VIAL 25 MG IV PUSH (22:15)
[2020-06-24] VITALS: BP 164/84; PULSE 85; RESP 18; TEMP 36.4; O2SAT 94
[2020-06-24] MEDS: clonazePAM (*CRX) 0.5 MG TABLET 1 MG PO (00:16)
[2020-06-24] MEDS: ONDANSETRON INJ 4 MG/2 ML VIAL IV PUSH ×3 (00:16→19:32)
[2020-06-24] MEDS: LOPERAMIDE HCL 2 MG CAPSULE PO ×3 (00:17→19:33)
[2020-06-24 04:00] VITALS: BP 128/68; PULSE 79; RESP 16; TEMP 36; O2SAT 92
--- NOTE | 2020-06-24 04:11 | PC.NURSE ---
Dr. Smith notified of pt's stool having redness present; New orders received and noted.
[2020-06-24 05:11] LABS: Occult Blood Positive (Negative)
[2020-06-24 05:42] LABS: Basophils Absolute Auto 0.03 K/mm3 (0.00-0.10); Basophils Percent Auto 0.2 % (0.0-1.0); Eosinophils Absolute Auto 0.93 K/mm3 (0.02-0.50); Eosinophils Percent Auto 6.2 % (1.0-6.0); Hematocrit 38.8 % (35.0-42.0); Hemoglobin 12.8 g/dL (11.7-13.8); Immature Granulocyte Absolute 0.06 K/mm3 (0.00-0.00); Immature Granulocyte Percent A 0.4 % (0.0-0.0); Lymphocytes Absolute Auto 1.61 K/mm3 (1.10-4.50); Lymphocytes Percent Auto 10.8 % (18.0-42.0); Mean Corpuscular Hemoglobin 32.6 pg (27.0-31.0); Mean Corpuscular Volume 98.7 fL (78.0-102.0); Mean Platelet Volume 12.4 fl (9.2-11.8); Monocytes Absolute Auto 1.15 K/mm3 (0.10-0.90); Monocytes Percent Auto 7.7 % (2.0-11.0); Neutrophils Absolute Auto 11.2 K/mm3 (1.7-7.2); Neutrophils Percent Auto 74.7 % (50.0-70.0); Platelet Count Result 239 K/mm3 (150-420); Red Blood Count 3.93 M/mm3 (4.20-5.40); Red Cell Distribution Width 15.9 % (11.6-14.4)
[2020-06-24 05:57] LABS: Alanine Aminotransferase 14 U/L (14-59); Albumin Level 2.4 g/dL (3.4-5.0); Alkaline Phosphatase 94 U/L (46-116); Anion Gap 11 mmol/L (8-16); Aspartate Amino Transferase 14 U/L (15-37); Bilirubin,Total 0.5 mg/dL (0.00-1.00); Blood Urea Nitrogen 28 mg/dL (7-18); Carbon Dioxide 23 mmol/L (21-32); Chloride 105 mmol/L (98-108); Estimated CRCL calculation 23 ml/min; Estimated Glomerular Filt Rate 25; Glucose 115 mg/dL (70-99); Magnesium 1.6 mg/dL (1.8-2.4); Osmolality Calculated 294 mOsm/kg (285-295); Potassium 3.8 mmol/L (3.5-5.1); Sodium 139 mmol/L (136-145); Total Protein 5.2 g/dL (6.4-8.2)
[2020-06-24] MEDS: LEVOTHYROXINE SODIUM 100 MCG TABLET PO (06:06)
[2020-06-24] MEDS: SODIUM CHLORIDE 0.9% IV 1,000 ML 70 ML IV CONT ×2 (06:06→21:55)
[2020-06-24 07:30] VITALS: BP 132/72; PULSE 79; RESP 18; TEMP 36.4; O2SAT 95
--- NOTE | 2020-06-24 07:54 | PC.NURSE ---
CURING SUPERVISOR in to see patient, continues to have watery bloody BM at this time, brar patent and draining, feeling more weak today
--- NOTE | 2020-06-24 08:19 | PM.IMPN ---
Progress Note: A&P Assessment and Plan (1) Acute dehydration: Code(s): E86.0 - Dehydration Status: Acute Assessment and Plan: 06/23/2020 1 bolus normal saline given in ER with NS at 70 mL/H per hour thereafter, renal function has improved this morning, will continue to monitor, patient is taking oral fluids but likely not enough as this may be upsetting her stomach 06/24/2020 normal saline continues as above, patient continues to attempt oral fluid however did start a few episodes of vomiting today, patient given Zofran and Compazine will see how this affects her nausea and vomiting (2) Diarrhea: Qualifiers: Diarrhea type: unspecified type Qualified Code(s): R19.7 - Diarrhea, unspecified Code(s): R19.7 - Diarrhea, unspecified Status: Acute Assessment and Plan: 06/23/2020 patient was given Imodium, negative fecal WBC, negative for C diff, negative occult blood in stool, stool for O&P pending 06/24/2020 occult stool was positive, there was minimal blood in the liquid stool without clots (3) Elevated troponin: Code(s): R77.8 - Other specified abnormalities of plasma proteins Status: Acute Assessment and Plan: 06/23/2020 troponins have been between 0.18 and 0.22 to likely related to acute renal failure, no chest pain or pressure at this time, vital signs stable, telemetry shows sinus rhythm at this time 06/24/2020 patient remains without symptoms (4) Gait instability: Code(s): R26.81 - Unsteadiness on feet Status: Acute Assessment and Plan: 06/23/2020 I saw patient walking in her room without difficulty, due to patient's history of balance issues started Antivert 25 b.i.d. 06/24/2020 patient has not complained of balance issues after Antivert have been started will address this again tomorrow (5) Celiac disease: Code(s): K90.0 - Celiac disease Status: Acute Assessment and Plan: 06/23/2020 heart healthy gluten free diet (6) Hypertension: Code(s): I10 - Essential (primary) hypertension Status: Acute Assessment and Plan: 06/23/2020 at this time vital signs are stable, losartan held due to renal function, will continue to monitor and make medication changes as needed 06/24/2020 continue as above (7) Hypothyroidism: Code(s): E03.9 - Hypothyroidism, unspecified Status: Acute Assessment and Plan: 06/23/2020 continue her thyroid medication (8) Acute renal failure: Code(s): N17.9 - Acute kidney failure, unspecified Status: Acute Assessment and Plan: 06/23/2020 BUN/CR 27/3.28, will continue to monitor, gentle hydration with normal saline 70 mL/ H, encouraging p.o. fluids, CT report shows severe right kidney atrophy, for stones in the right kidney largest 4 mm, cortical thinning left kidney with 2.1 cm cyst 06/24/2020 renal function has improved please refer to labs above (9) UTI (urinary tract infection): Code(s): N39.0 - Urinary tract infection, site not specified Status: Acute Assessment and Plan: 06/24/2020 UA from earlier in admission appear to be relatively clean with only 1+ bacteria and negative for nitrites, culture came back positive for E coli, surely related to her diarrhea, Rocephin started today (10) GI bleed: Code(s): K92.2 - Gastrointestinal hemorrhage, unspecified Status: Acute Assessment and Plan: 06/24/2020 this started early this morning with 2-3 episodes at approximately 3:00 a.m., Xarelto was stopped, patient did not have another episode until approximately 2:00 p.m. which was a small bleed at that time as well, spoke with patient's GI team who confirmed what the patient's daughter was informed that they would not do anything different at that facility than what we are currently doing here, H&H remained stable 12.8 / 38.8, will monitor this as well Subjective Date/time seen: 06/24/20 08:19 this morning
[2020-06-24 08:28] LABS: INR 1.2; Prothrombin Time 12.7 Seconds (9.64-11.0)
[2020-06-24] MEDS: MAGNESIUM SULF 4 GM/WATER100ML 4 GM/100 ML BAG IVPB (08:55)
[2020-06-24] MEDS: BUDESONIDE/FORMOTEROL (*SP) 160-4.5 MCG 6 GM INH 2 PUFF INHALATION (09:01)
[2020-06-24] MEDS: MAGNESIUM OXIDE 400 MG TABLET 800 MG PO (09:02)
[2020-06-24] MEDS: MECLIZINE HCL 25 MG TABLET PO (09:02)
[2020-06-24] MEDS: MULTIVITAMINS THERAPEUTIC TAB (*BKC) 1 TABLET PO (09:03)
[2020-06-24] MEDS: SERTRALINE HCL 50 MG TABLET 100 MG PO (09:03)
[2020-06-24] MEDS: CHOLECALCIFEROL 400 UNITS TABLET (VIT D) PO (09:03)
[2020-06-24] MEDS: CALCIUM/VITAMIN D 250 MG TABLET 1 TABLET PO (09:04)
[2020-06-24] MEDS: PANTOPRAZOLE 40 MG TABLET PO (09:04)
[2020-06-24] MEDS: OMEGA 3 POLYUNSAT FATTY ACIDS 1 GM CAP PO (09:05)
--- NOTE | 2020-06-24 10:15 | PC.NURSE ---
Feeling nauseated, no emesis, no further BM at this time, brar patent and draining
--- NOTE | 2020-06-24 10:40 | PC.NURSE ---
Napping at intervals, fluids infusing, no vomiting, just nauseated at times,
[2020-06-24 12:00] VITALS: BP 144/71; PULSE 79; RESP 18; TEMP 36.1; O2SAT 95
--- NOTE | 2020-06-24 12:50 | PC.NURSE ---
Up to commode, moderate amount 200ml of liquid stool mixed with blood
--- NOTE | 2020-06-24 14:03 | PC.NURSE ---
Emesis noted, 700ml at this time encouraged to take small sips of water
--- NOTE | 2020-06-24 14:45 | PC.NURSE ---
having abdominal cramping, loose stools, more brown with hints of red at this time, brar patent and draining, fluids infusing, no more emesis but feels like she could, encouraged to chew on sips of water
[2020-06-24] MEDS: PROCHLORPERAZINE EDISYLATE 10 MG/2 ML VIAL IV PUSH (15:39)
[2020-06-24] MEDS: DIPHENOXYLATE/ATROPINE (*CRX) 2.5 MG TABLET 2 TABLET PO (15:41)
[2020-06-24 16:00] VITALS: BP 176/87; PULSE 81; RESP 18; TEMP 36; O2SAT 98
--- NOTE | 2020-06-24 17:13 | PC.NURSE ---
nausea and watery stools with blood continue at this time,. abd cramping un improved since IV compazine,
--- NOTE | 2020-06-24 18:04 | PC.NURSE ---
large bloody watery stool noted, returned to bed, fluids infusing, did take in a small amount of yellow jello this evening and kept it down, still just doesn't feel well
[2020-06-24 20:00] VITALS: BP 116/75; PULSE 90; RESP 16; TEMP 35.8; O2SAT 97
--- NOTE | 2020-06-24 20:42 | PC.NURSE ---
Patient has experienced 2 liquid stools with abdominal cramping.Stool Dark red and frothy. Was able to keep one dose of lomotil down after receiving zofran IV prior to administration
[2020-06-25] VITALS: BP 114/72; PULSE 90; RESP 16; TEMP 36.2; O2SAT 93
[2020-06-25 04:00] VITALS: BP 111/62; PULSE 100; RESP 18; TEMP 36; O2SAT 93
[2020-06-25 05:55] LABS: Hematocrit 42.1 % (35.0-42.0); Hemoglobin 13.8 g/dL (11.7-13.8); Mean Corpuscular HGB Conc 32.8 g/dL (32.0-36.0); Mean Corpuscular Hemoglobin 32.2 pg (27.0-31.0); Mean Corpuscular Volume 98.4 fL (78.0-102.0); Mean Platelet Volume 12.4 fl (9.2-11.8); Platelet Count Result 168 K/mm3 (150-420); Red Blood Count 4.28 M/mm3 (4.20-5.40); White Blood Count 15.6 K/mm3 (4.8-10.8)
[2020-06-25] MEDS: LEVOTHYROXINE SODIUM 100 MCG TABLET PO (06:00)
[2020-06-25 06:06] LABS: Anion Gap 13 mmol/L (8-16); Blood Urea Nitrogen 33 mg/dL (7-18); Carbon Dioxide 19 mmol/L (21-32); Chloride 104 mmol/L (98-108); Estimated CRCL calculation 19 ml/min; Estimated Glomerular Filt Rate 19; Glucose 140 mg/dL (70-99); Magnesium 2.8 mg/dL (1.8-2.4); Osmolality Calculated 291 mOsm/kg (285-295); Sodium 136 mmol/L (136-145)
[2020-06-25 07:37] VITALS: BP 124/74; PULSE 87; RESP 18; TEMP 36.3; O2SAT 94
--- NOTE | 2020-06-25 08:16 | PM.IMPN ---
Progress Note: A&P Assessment and Plan (1) Acute dehydration: Code(s): E86.0 - Dehydration Status: Acute Assessment and Plan: 06/23/2020 1 bolus normal saline given in ER with NS at 70 mL/H per hour thereafter, renal function has improved this morning, will continue to monitor, patient is taking oral fluids but likely not enough as this may be upsetting her stomach 06/24/2020 normal saline continues as above, patient continues to attempt oral fluid however did start a few episodes of vomiting today, patient given Zofran and Compazine will see how this affects her nausea and vomiting 06/25/2020 patient still having a little difficulty with consuming fluids, kidney function also took a step backwards, increased IV fluids to 100 mL/H, encouraged patient to ask for Zofran prior to meal times for a goal of better tolerating oral intake, patient states she is worried of vomiting again (2) Diarrhea: Qualifiers: Diarrhea type: unspecified type Qualified Code(s): R19.7 - Diarrhea, unspecified Code(s): R19.7 - Diarrhea, unspecified Status: Acute Assessment and Plan: 06/23/2020 patient was given Imodium, negative fecal WBC, negative for C diff, negative occult blood in stool, stool for O&P pending 06/24/2020 occult stool was positive, there was minimal blood in the liquid stool without clots 06/25/2020 patient states the cramping in her abdomen is less, and she has not had any diarrhea episodes today (3) Elevated troponin: Code(s): R77.8 - Other specified abnormalities of plasma proteins Status: Acute Assessment and Plan: 06/23/2020 troponins have been between 0.18 and 0.22 to likely related to acute renal failure, no chest pain or pressure at this time, vital signs stable, telemetry shows sinus rhythm at this time 06/24/2020 patient remains without symptoms 06/25/2020 remained symptom-free (4) Gait instability: Code(s): R26.81 - Unsteadiness on feet Status: Acute Assessment and Plan: 06/23/2020 I saw patient walking in her room without difficulty, due to patient's history of balance issues started Antivert 25 b.i.d. 06/24/2020 patient has not complained of balance issues after Antivert have been started will address this again tomorrow 06/25/2020 no reports of being off balance (5) Celiac disease: Code(s): K90.0 - Celiac disease Status: Acute Assessment and Plan: 06/23/2020 heart healthy gluten free diet 06/25/2020 continue with heart healthy gluten free diet and added Ensure (6) Hypertension: Code(s): I10 - Essential (primary) hypertension Status: Acute Assessment and Plan: 06/23/2020 at this time vital signs are stable, losartan held due to renal function, will continue to monitor and make medication changes as needed 06/24/2020 continue as above 06/25/2020 vital signs stable, room air SpO2 93% or better, afebrile (7) Hypothyroidism: Code(s): E03.9 - Hypothyroidism, unspecified Status: Acute Assessment and Plan: 06/23/2020 continue her thyroid medication (8) Acute renal failure: Code(s): N17.9 - Acute kidney failure, unspecified Status: Acute Assessment and Plan: 06/23/2020 BUN/CR 27/3.28, will continue to monitor, gentle hydration with normal saline 70 mL/ H, encouraging p.o. fluids, CT report shows severe right kidney atrophy, for stones in the right kidney largest 4 mm, cortical thinning left kidney with 2.1 cm cyst 06/24/2020 renal function has improved please refer to labs above 06/25/2020 renal function took a step backwards today BUN 33 creatinine 2.47 clearance down the 19 GFR also at 19, IV fluids increased to 100 mL/h, encouraging p.o. fluids (9) UTI (urinary tract infection): Code(s): N39.0 - Urinary tract infection, site not specified Status: Acute Assessment and Plan: 06/24/2020 UA from earlier in admission appear to be relative
[2020-06-25] MEDS: BUDESONIDE/FORMOTEROL (*SP) 160-4.5 MCG 6 GM INH 2 PUFF INHALATION ×2 (08:44→17:06)
[2020-06-25] MEDS: MAGNESIUM OXIDE 400 MG TABLET 800 MG PO ×2 (08:47→17:07)
[2020-06-25] MEDS: OMEGA 3 POLYUNSAT FATTY ACIDS 1 GM CAP PO (08:47)
[2020-06-25] MEDS: CALCIUM/VITAMIN D 250 MG TABLET 1 TABLET PO ×2 (08:48→17:07)
[2020-06-25] MEDS: MULTIVITAMINS THERAPEUTIC TAB (*BKC) 1 TABLET PO ×2 (08:48→17:07)
[2020-06-25] MEDS: SERTRALINE HCL 50 MG TABLET 100 MG PO (08:48)
[2020-06-25] MEDS: MECLIZINE HCL 25 MG TABLET PO ×2 (08:49→17:07)
[2020-06-25] MEDS: PANTOPRAZOLE 40 MG TABLET PO (08:49)
[2020-06-25] MEDS: CHOLECALCIFEROL 400 UNITS TABLET (VIT D) PO (08:49)
[2020-06-25] MEDS: ONDANSETRON INJ 4 MG/2 ML VIAL IV PUSH ×3 (09:34→21:43)
--- NOTE | 2020-06-25 09:39 | PC.NURSE ---
zofran given for nausea after taking am meds, no emesis at this time, will monitor closely
[2020-06-25] MEDS: SODIUM CHLORIDE 0.9% IV 1,000 ML 100 ML IV CONT ×2 (10:52→21:06)
[2020-06-25] MEDS: PROCHLORPERAZINE EDISYLATE 10 MG/2 ML VIAL IV PUSH (10:56)
--- NOTE | 2020-06-25 11:07 | PC.NURSE ---
No vomiting at this time, still feels nauseated and abdominal cramping has returned, compazine given for complaint, fluids infusing att his time
[2020-06-25 12:00] VITALS: BP 128/75; PULSE 91; RESP 18; TEMP 36; O2SAT 95
--- NOTE | 2020-06-25 12:43 | PC.NURSE ---
called to room, x1 large liquid blood stool, 200 ml noted
--- NOTE | 2020-06-25 14:04 | PC.NURSE ---
small size of loose bloody stool noted, hospitalist aware of stools today
[2020-06-25 14:45] LABS: Hematocrit 37.1 % (35.0-42.0); Hemoglobin 12.1 g/dL (11.7-13.8)
[2020-06-25 16:00] VITALS: BP 140/80; PULSE 84; RESP 18; TEMP 36.6; O2SAT 95
[2020-06-25] MEDS: LOPERAMIDE HCL 2 MG CAPSULE PO ×2 (17:29→21:44)
--- NOTE | 2020-06-25 19:42 | PC.NURSE ---
1730 had 200ml of liquid brown stool and approx 300ml of yellow green emesis. prn meds given. erp aware.
--- NOTE | 2020-06-25 19:44 | PC.NURSE ---
1800 rests quietly in bed with cool cloth on forehead. no furthor c/o
[2020-06-25 20:00] VITALS: BP 139/82; PULSE 102; RESP 18; TEMP 36.1; O2SAT 93
[2020-06-25] MEDS: rOPINIRole HCL 0.5 MG TABLET 0.25 MG PO (21:43)
[2020-06-26] VITALS: BP 119/60; PULSE 84; RESP 16; TEMP 36.8; O2SAT 94
--- NOTE | 2020-06-26 01:00 | PM.EVENT ---
Event Note Event Note Event Note: For 06/25: I have examined the patient and reviewed the chart. I discussed the patient's care with Rosa Maria Costa APN and agree with his assessment and plan.
[2020-06-26 04:00] VITALS: BP 122/56; PULSE 78; RESP 16; TEMP 36.6; O2SAT 93
[2020-06-26 05:50] LABS: Hemoglobin 10.8 g/dL (11.7-13.8); Mean Corpuscular HGB Conc 32.7 g/dL (32.0-36.0); Mean Corpuscular Hemoglobin 32.6 pg (27.0-31.0); Mean Corpuscular Volume 99.7 fL (78.0-102.0); Mean Platelet Volume 12.4 fl (9.2-11.8); Platelet Count Result 112 K/mm3 (150-420); Red Blood Count 3.31 M/mm3 (4.20-5.40); Red Cell Distribution Width 15.9 % (11.6-14.4); White Blood Count 14.1 K/mm3 (4.8-10.8)
[2020-06-26] MEDS: LEVOTHYROXINE SODIUM 100 MCG TABLET PO (05:58)
[2020-06-26] MEDS: SODIUM CHLORIDE 0.9% IV 1,000 ML 100 ML IV CONT (05:58)
[2020-06-26 06:05] LABS: Anion Gap 9 mmol/L (8-16); Blood Urea Nitrogen 39 mg/dL (7-18); Calcium 7.8 mg/dL (8.5-10.1); Carbon Dioxide 23 mmol/L (21-32); Chloride 105 mmol/L (98-108); Estimated CRCL calculation 19 ml/min; Estimated Glomerular Filt Rate 19; Glucose 88 mg/dL (70-99); Osmolality Calculated 292 mOsm/kg (285-295); Potassium 3.9 mmol/L (3.5-5.1); Sodium 137 mmol/L (136-145)
[2020-06-26 08:00] VITALS: BP 116/60; PULSE 76; RESP 20; TEMP 36.5; O2SAT 94
[2020-06-26] MEDS: OMEGA 3 POLYUNSAT FATTY ACIDS 1 GM CAP PO (09:30)
[2020-06-26] MEDS: BUDESONIDE/FORMOTEROL (*SP) 160-4.5 MCG 6 GM INH 2 PUFF INHALATION ×2 (09:30→17:48)
[2020-06-26] MEDS: CALCIUM/VITAMIN D 250 MG TABLET 1 TABLET PO ×2 (09:30→17:48)
[2020-06-26] MEDS: CHOLECALCIFEROL 400 UNITS TABLET (VIT D) PO (09:31)
[2020-06-26] MEDS: SERTRALINE HCL 50 MG TABLET 100 MG PO (09:31)
[2020-06-26] MEDS: MAGNESIUM OXIDE 400 MG TABLET 800 MG PO ×2 (09:31→17:48)
[2020-06-26] MEDS: PANTOPRAZOLE 40 MG TABLET PO (09:31)
[2020-06-26] MEDS: MECLIZINE HCL 25 MG TABLET PO ×2 (09:31→17:48)
[2020-06-26] MEDS: MULTIVITAMINS THERAPEUTIC TAB (*BKC) 1 TABLET PO ×2 (09:31→17:48)
[2020-06-26] MEDS: PROCHLORPERAZINE EDISYLATE 10 MG/2 ML VIAL IV PUSH (10:39)
[2020-06-26 12:00] VITALS: BP 157/81; PULSE 102; RESP 18; TEMP 37; O2SAT 93
--- NOTE | 2020-06-26 14:09 | PM.IMPN ---
Progress Note: A&P Assessment and Plan (1) Acute dehydration: Code(s): E86.0 - Dehydration Status: Acute Assessment and Plan: 06/23/2020 1 bolus normal saline given in ER with NS at 70 mL/H per hour thereafter, renal function has improved this morning, will continue to monitor, patient is taking oral fluids but likely not enough as this may be upsetting her stomach 06/24/2020 normal saline continues as above, patient continues to attempt oral fluid however did start a few episodes of vomiting today, patient given Zofran and Compazine will see how this affects her nausea and vomiting 06/25/2020 patient still having a little difficulty with consuming fluids, kidney function also took a step backwards, increased IV fluids to 100 mL/H, encouraged patient to ask for Zofran prior to meal times for a goal of better tolerating oral intake, patient states she is worried of vomiting again 06/26/2020 patient still trying to take oral fluids, she is not eating very well, will change IV fluids over the D5NS (2) Diarrhea: Qualifiers: Diarrhea type: unspecified type Qualified Code(s): R19.7 - Diarrhea, unspecified Code(s): R19.7 - Diarrhea, unspecified Status: Acute Assessment and Plan: 06/23/2020 patient was given Imodium, negative fecal WBC, negative for C diff, negative occult blood in stool, stool for O&P pending 06/24/2020 occult stool was positive, there was minimal blood in the liquid stool without clots 06/25/2020 patient states the cramping in her abdomen is less, and she has not had any diarrhea episodes today 06/26/2020 episodes of diarrhea have decreased, stool for O&P negative except Campylobacter results are pending (3) Elevated troponin: Code(s): R77.8 - Other specified abnormalities of plasma proteins Status: Acute Assessment and Plan: 06/23/2020 troponins have been between 0.18 and 0.22 to likely related to acute renal failure, no chest pain or pressure at this time, vital signs stable, telemetry shows sinus rhythm at this time 06/24/2020 patient remains without symptoms 06/25/2020 remained symptom-free 06/26/2020 remains asymptomatic (4) Gait instability: Code(s): R26.81 - Unsteadiness on feet Status: Acute Assessment and Plan: 06/23/2020 I saw patient walking in her room without difficulty, due to patient's history of balance issues started Antivert 25 b.i.d. 06/24/2020 patient has not complained of balance issues after Antivert have been started will address this again tomorrow 06/25/2020 no reports of being off balance 06/26/2020 patient has not reported any issues (5) Celiac disease: Code(s): K90.0 - Celiac disease Status: Acute Assessment and Plan: 06/23/2020 heart healthy gluten free diet 06/25/2020 continue with heart healthy gluten free diet and added Ensure 06/26/2020 no changes at this time (6) Hypertension: Code(s): I10 - Essential (primary) hypertension Status: Acute Assessment and Plan: 06/23/2020 at this time vital signs are stable, losartan held due to renal function, will continue to monitor and make medication changes as needed 06/24/2020 continue as above 06/25/2020 vital signs stable, room air SpO2 93% or better, afebrile 06/26/2020 vital signs stable, afebrile (7) Hypothyroidism: Code(s): E03.9 - Hypothyroidism, unspecified Status: Acute Assessment and Plan: 06/23/2020 continue her thyroid medication (8) Acute renal failure: Code(s): N17.9 - Acute kidney failure, unspecified Status: Acute Assessment and Plan: 06/23/2020 BUN/CR 27/3.28, will continue to monitor, gentle hydration with normal saline 70 mL/ H, encouraging p.o. fluids, CT report shows severe right kidney atrophy, for stones in the right kidney largest 4 mm, cortical thinning left kidney with 2.1 cm cyst 06/24/2020 renal function has improved please refer to labs abo
[2020-06-26] MEDS: ACETAMINOPHEN 500 MG TABLET PO (15:18)
[2020-06-26] MEDS: DEXTROSE 5%/0.9% SOD CHL 1,000 ML 100 ML IV CONT (15:19)
[2020-06-26 16:00] VITALS: BP 123/75; PULSE 96; RESP 18; TEMP 36.7; O2SAT 94
[2020-06-26 20:45] VITALS: BP 122/66; PULSE 97; RESP 18; TEMP 36.4; O2SAT 96
[2020-06-26] MEDS: rOPINIRole HCL 0.5 MG TABLET 0.25 MG PO (20:49)
[2020-06-26] MEDS: clonazePAM (*CRX) 0.5 MG TABLET 1 MG PO (20:49)
[2020-06-27] VITALS: BP 145/83; PULSE 70; RESP 16; TEMP 36.1; O2SAT 93
[2020-06-27] MEDS: DEXTROSE 5%/0.9% SOD CHL 1,000 ML 100 ML IV CONT (00:58)
--- NOTE | 2020-06-27 01:20 | PC.NURSE ---
Received call from patient placement at [place] notifying that they had a bed ready for the patient to transfer. Patient will be going to room 5574 at [facility].
--- NOTE | 2020-06-27 01:30 | PC.NURSE ---
Report called to DELILAH Fairchild at [facility]
--- NOTE | 2020-06-27 01:42 | PC.NURSE ---
[facility] ambulance called for transfer to [facility]. Per patients request, her was called and notified that she would be transferring [place] to room 5574 at [facility].
--- NOTE | 2020-06-27 02:06 | PC.NURSE ---
Patient left with [facility] ambulance for transfer to [facility]. Patient belongings and home medications were sent with the patient. D5NS that was running was sent with the EMS crew.
--- NOTE | 2020-06-28 13:14 | PM.DS ---
DS: Admitting Diagnosis Admitting Diagnosis Admitting Diagnosis: acute renal failure elevated troponin This patient was transferred at approximately 2:00 a.m. in the morning on 06/27/2020. I was not here at the actual time of transfer but I did see the patient on the and made progress note at that time. This is a delayed entry for the discharge summary. Patient was transferred to [facility] accepting physician was Dr. Ramos a GI specialist. DS: Discharge Diagnosis Discharge Diagnosis (1) Acute dehydration: Code(s): E86.0 - Dehydration Status: Acute Assessment and Plan: 06/23/2020 1 bolus normal saline given in ER with NS at 70 mL/H per hour thereafter, renal function has improved this morning, will continue to monitor, patient is taking oral fluids but likely not enough as this may be upsetting her stomach 06/24/2020 normal saline continues as above, patient continues to attempt oral fluid however did start a few episodes of vomiting today, patient given Zofran and Compazine will see how this affects her nausea and vomiting 06/25/2020 patient still having a little difficulty with consuming fluids, kidney function also took a step backwards, increased IV fluids to 100 mL/H, encouraged patient to ask for Zofran prior to meal times for a goal of better tolerating oral intake, patient states she is worried of vomiting again 06/26/2020 patient still trying to take oral fluids, she is not eating very well, will change IV fluids over the D5NS (2) Diarrhea: Qualifiers: Diarrhea type: unspecified type Qualified Code(s): R19.7 - Diarrhea, unspecified Code(s): R19.7 - Diarrhea, unspecified Status: Acute Assessment and Plan: 06/23/2020 patient was given Imodium, negative fecal WBC, negative for C diff, negative occult blood in stool, stool for O&P pending 06/24/2020 occult stool was positive, there was minimal blood in the liquid stool without clots 06/25/2020 patient states the cramping in her abdomen is less, and she has not had any diarrhea episodes today 06/26/2020 episodes of diarrhea have decreased, stool for O&P negative except Campylobacter results are pending (3) Elevated troponin: Code(s): R77.8 - Other specified abnormalities of plasma proteins Status: Acute Assessment and Plan: 06/23/2020 troponins have been between 0.18 and 0.22 to likely related to acute renal failure, no chest pain or pressure at this time, vital signs stable, telemetry shows sinus rhythm at this time 06/24/2020 patient remains without symptoms 06/25/2020 remained symptom-free 06/26/2020 remains asymptomatic (4) Gait instability: Code(s): R26.81 - Unsteadiness on feet Status: Acute Assessment and Plan: 06/23/2020 I saw patient walking in her room without difficulty, due to patient's history of balance issues started Antivert 25 b.i.d. 06/24/2020 patient has not complained of balance issues after Antivert have been started will address this again tomorrow 06/25/2020 no reports of being off balance 06/26/2020 patient has not reported any issues (5) Celiac disease: Code(s): K90.0 - Celiac disease Status: Acute Assessment and Plan: 06/23/2020 heart healthy gluten free diet 06/25/2020 continue with heart healthy gluten free diet and added Ensure 06/26/2020 no changes at this time (6) Hypertension: Code(s): I10 - Essential (primary) hypertension Status: Acute Assessment and Plan: 06/23/2020 at this time vital signs are stable, losartan held due to renal function, will continue to monitor and make medication changes as needed 06/24/2020 continue as above 06/25/2020 vital signs stable, room air SpO2 93% or better, afebrile 06/26/2020 vital signs stable, afebrile (7) Hypothyroidism: Code(s): E03.9 - Hypothyroidism, unspecified Status: Acute Assessment and Plan: 06/23/2020 continue her thyroid me
== END 2020-06-27 02:06 | disposition short-term general hospital (02) | DRG 683 ==
LOC: CHSED 16:27 → CHS2ND 16:35
PROVIDERS: Emergency Medicine; Nurse Practitioner Family; Admitting Provider Emergency Medicine; Emergency Provider Emergency Medicine; PCP Family Medicine; Visit Provider Emergency Medicine
DX: N17.9 Acute kidney failure, unspecified (principal); N39.0 Urinary tract infection, site not specified; N18.30 Chronic kidney disease, stage 3 unspecified; I12.9 Hypertensive chronic kidney disease with stage 1 through stage 4 chronic kidney disease, or unspecified chronic kidney disease; R53.1 Weakness; K92.2 Gastrointestinal hemorrhage, unspecified; E86.0 Dehydration; I10 Essential (primary) hypertension; K90.0 Celiac disease; Z86.19 Personal history of other infectious and parasitic diseases; K21.9 Gastro-esophageal reflux disease without esophagitis; R19.7 Diarrhea, unspecified; Z91.81 History of falling; E03.9 Hypothyroidism, unspecified; R79.89 Other specified abnormal findings of blood chemistry; R26.81 Unsteadiness on feet; F41.9 Anxiety disorder, unspecified; Z86.718 Personal history of other venous thrombosis and embolism; Z79.01 Long term (current) use of anticoagulants
CPT/HCPCS: 36415; 71046; 74176; 80048; 80053; 81001; 82746; 83605; 83690; 83735; 84484; 85014; 85018; 85025; 85027; 85610; 85730; 86140; 87040; 87045; 87046; 87077; 87086; 87088; 87177; 87186; 87209; 87269; 87272; 87324; 87427; 89055; 93005; 96360; 99285; A9270; J0696; J0780; J1200; J2405; J3475; J7030; J7042

== ENCOUNTER 2020-08-10 15:38 | Emergency (ER) | payer MEDICARE, SELFPAY ==
--- NOTE | ~2020-08-10 | XR_ITS ---
XR chest 2V DATE: 08/10/2020 16:45 INDICATION: Cough. Weakness. TECHNIQUE: PA and lateral views COMPARISON: 06/22/2020 2 view chest 03/29/2020 CT chest FINDINGS: There is interval opacification of the lower third of the right hemithorax which may be due to any combination of elevated right diaphragm, right pleural effusion as well as infiltrate and ate lectasis. There is some infiltrate or atelectasis in the right midlung as well. There is hyperinflation of the lungs. Heart size appears borderline. Is aortic calcification and mild unfolding. phototypesetting equipment monitor device is noted in the medial left lower anterior chest wall. Calcified breast implants. Diffuse osteopenia. IMPRESSION: New infiltrate and/atelectasis in the right mid and particularly right lower lung zone an d probable right pleural effusion, new findings since 06/22/2020 Prominent diffuse osteopenia Reviewed, dictated and finalized at location [facility]. 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
--- NOTE | 2020-08-10 15:45 | ED.NAVMDI ---
HPI - Nausea/Vomiting/Diarrhea General Chief complaint: Nausea/Vomiting/Diarrhea Stated complaint: dehydration-throwing up,diarrhea Time Seen by Provider: 08/10/20 16:06 Source: patient Mode of arrival: wheelchair Limitations: no limitations History of Present Illness HPI Narrative: 74-year-old woman with a history of celiac disease and recent hospitalization after renal failure and portal vein thrombophlebitis. He she finished antibiotics for the ladder yesterday. Patient states that she has had weakness and diarrhea but no chest pain, shortness of breath, fever, vomiting, dysuria, hematuria, blood in her stools or black stools. she states that while she was admitted to [facility] in [place] she was told that she had some fluid in her lungs. She has been treated since that discharge ([facility]) with levofloxacin and metronidazole. Patient feels that if she gets some IV fluids she would be able to follow-up with her doctor tomorrow as scheduled. MD elicited complaint: nausea, vomiting and diarrhea Onset (ago): day(s) (2) Description of diarrhea: watery Associated nausea: No Associated abdominal pain: No Exacerbating factors: eating Relieving factors: none Context: recent antibiotic use and anticoagulant use Associated symptoms: cough Related Data Home Medications Medication Instructions Recorded Confirmed Xarelto 10 mg PO DAILY 03/13/20 06/22/20 clonazepam 1 mg PO HS PRN 03/13/20 06/22/20 levothyroxine 100 mcg PO DAILY 03/13/20 06/22/20 losartan 25 mg PO DAILY 03/13/20 06/22/20 methotrexate sodium 15 mg PO WEEKLY 03/13/20 06/22/20 pilocarpine HCl 5 mg PO TID 03/13/20 06/22/20 sertraline 100 mg PO DAILY 03/13/20 06/22/20 Glucosamine Chondroitin PLUS 1 cap PO BID 06/22/20 06/22/20 albuterol sulfate [ProAir HFA] 1 inh INHALATION QID PRN 06/22/20 06/22/20 budesonide-formoterol [Symbicort] 2 puff INHALATION BID 06/22/20 06/22/20 calcium carbonate-vitamin D3 1 tablet PO BID 06/22/20 06/22/20 cholecalciferol (vitamin D3) 10 mcg PO DAILY 06/22/20 06/22/20 [Vitamin D3] docosahexaenoic [id number] E 1,000 cap PO DAILY 06/22/20 06/22/20 magnesium 2 tablet PO BID 06/22/20 06/22/20 multivitamin 1 tablet PO BID 06/22/20 06/22/20 omeprazole 20 mg PO DAILY 06/22/20 06/22/20 oxybutynin chloride 10 mg PO DAILY 06/22/20 06/22/20 ropinirole 0.25 mg PO HS 06/22/20 06/22/20 valacyclovir 2,000 mg PO BID 06/22/20 06/22/20 Allergies Allergy/AdvReac Type Severity Reaction Status Date / Time No Known Allergies Allergy Unverified 12/04/18 09:21 Review of Systems Constitutional: Constitutional: Reports as per HPI, Denies chills, Denies fever(s) and Reports weakness Eyes: Eyes: Denies change in vision and Denies photophobia ENT: Denies dysphagia, Denies nasal congestion and Denies sore throat Cardiovascular: Cardiovascular: Denies chest pain and Denies radiating jaw, neck or arm pain Respiratory: Respiratory: Denies chest congestion, Reports cough, Denies dyspnea and Denies wheezing Gastrointestinal: Gastrointestinal: Denies abdominal pain, Reports diarrhea, Reports nausea and Reports vomiting ( Now resolved. patient was able to drink Gatorade today without difficul) Genitourinary: Genitourinary: Denies hematuria and Denies dysuria Musculoskeletal: Musculoskeletal: Denies back pain, Denies arthralgias and Denies joint swelling Integumentary/Breasts: Skin/Breast: Denies pruritus, Denies erythema and Denies rash Neurologic: Denies vertigo, Denies dizziness and Denies syncope Hematologic/Lymphatic: Hematologic/Lymphatic: Denies easy bleeding and Denies easy bruising Allergic/Immunologic: Allergic/Immunologic: Denies lip swelling, Denies throat swelling and Denies tongue swelling PMFSH Past Medical History Medical History Anxiety Celiac disease DVT (deep venous thrombosis) Gait instability GERD (gastroesophageal reflux disease) Hypertension Hypothyroidism Surgi
[2020-08-10 16:10] VITALS: BP 100/70; PULSE 107; RESP 20; TEMP 36.3; O2SAT 97
[2020-08-10] MEDS: SODIUM CHLORIDE 0.9% IV 1,000 ML 999 ML IV CONT (16:40)
[2020-08-10 16:45] LABS: Basophils Absolute Auto 0.01 K/mm3 (0.00-0.10); Basophils Percent Auto 0.2 % (0.0-1.0); Eosinophils Absolute Auto 0.27 K/mm3 (0.02-0.50); Eosinophils Percent Auto 5.6 % (1.0-6.0); Hematocrit 36.3 % (35.0-42.0); Hemoglobin 12.3 g/dL (11.7-13.8); Immature Granulocyte Absolute 0.01 K/mm3 (0.00-0.00); Immature Granulocyte Percent A 0.2 % (0.0-0.0); Lymphocytes Absolute Auto 0.89 K/mm3 (1.10-4.50); Lymphocytes Percent Auto 18.5 % (18.0-42.0); Mean Corpuscular HGB Conc 33.9 g/dL (32.0-36.0); Mean Corpuscular Hemoglobin 32.5 pg (27.0-31.0); Mean Corpuscular Volume 95.8 fL (78.0-102.0); Mean Platelet Volume 12.5 fl (9.2-11.8); Monocytes Absolute Auto 0.39 K/mm3 (0.10-0.90); Monocytes Percent Auto 8.1 % (2.0-11.0); Neutrophils Absolute Auto 3.2 K/mm3 (1.7-7.2); Neutrophils Percent Auto 67.4 % (50.0-70.0); Platelet Count Result 222 K/mm3 (150-420); Red Blood Count 3.79 M/mm3 (4.20-5.40); Red Cell Distribution Width 18.1 % (11.6-14.4); White Blood Count 4.8 K/mm3 (4.8-10.8)
[2020-08-10 16:51] VITALS: BP 111/71; PULSE 100
[2020-08-10 16:52] VITALS: BP 101/67; BP 120/83; PULSE 101; PULSE 105
[2020-08-10 16:57] LABS: Add Urine Microscopic? YES; Appearance Urine Clear (Clear); Bilirubin Urine 1+ (Negative); Blood Urine Negative (Negative); Color Urine Amber (Yellow); Glucose Urine UA Negative (Negative); Ketones Urine Negative (Negative); Leukocyte Esterase Ur Trace LEU/UL (Negative); Nitrate Urine Positive (Negative); Protein Urine Trace (Negative); Urobilinogen Urine 0.2 mg/dL (0.2-1.0); pH Urine 5.5 (5.0-8.0)
[2020-08-10 16:59] LABS: INR 1.2; Partial Thromboplastin Time 35.7 SEC (23.90-30.70); Prothrombin Time 12.7 Seconds (9.50-12.10)
[2020-08-10 17:00] LABS: Alanine Aminotransferase 17 U/L (14-59); Albumin Level 2.8 g/dL (3.4-5.0); Alkaline Phosphatase 78 U/L (46-116); Anion Gap 11 mmol/L (8-16); Aspartate Amino Transferase 25 U/L (15-37); Bilirubin,Total 0.4 mg/dL (0.00-1.00); Blood Urea Nitrogen 12 mg/dL (7-18); Calcium 8.5 mg/dL (8.5-10.1); Carbon Dioxide 24 mmol/L (21-32); Chloride 100 mmol/L (98-108); Estimated CRCL calculation 41 ml/min; Estimated Glomerular Filt Rate 49; Glucose 120 mg/dL (70-99); Osmolality Calculated 280 mOsm/kg (285-295); Potassium 3.6 mmol/L (3.5-5.1); Sodium 135 mmol/L (136-145); Total Protein 6.8 g/dL (6.4-8.2)
[2020-08-10 17:05] LABS: RBC Urine 0-2 /hpf (0-2); Squamous Epithelial Cell Urine Few /hpf (Few)
[2020-08-10 17:06] LABS: Bacteria Urine 2+ /hpf; Mucus Urine Few /lpf
[2020-08-10 17:14] LABS: Lipase 34 U/L (73-393)
[2020-08-10 17:15] VITALS: BP 106/79; PULSE 95; RESP 20; O2SAT 94
[2020-08-10 18:15] VITALS: BP 112/82; PULSE 97; RESP 20; O2SAT 93
[2020-08-10 19:15] VITALS: BP 115/81; PULSE 101; RESP 20; O2SAT 94
== END 2020-08-10 19:51 | disposition home or self-care (01) ==
PROVIDERS: Emergency Provider Emergency Medicine; PCP Family Medicine
DX: K90.0 Celiac disease (principal); E86.0 Dehydration; R82.81 Pyuria; J90 Pleural effusion, not elsewhere classified; Z86.718 Personal history of other venous thrombosis and embolism; Z79.01 Long term (current) use of anticoagulants; K21.9 Gastro-esophageal reflux disease without esophagitis; I10 Essential (primary) hypertension; E03.9 Hypothyroidism, unspecified
CPT/HCPCS: 36415; 71046; 80053; 81001; 83605; 83690; 85025; 85610; 85730; 86140; 87040; 87086; 87088; 96361; 96365; 99283; 99284; J0696; J7030

== ENCOUNTER 2020-08-14 16:42 | Outpatient (CLI) | payer MEDICARE, SELFPAY | END 2020-08-14 16:43 | disposition home or self-care (01) | LOC: CHSLAB 16:44 | PROVIDERS: PCP Family Medicine; Visit Provider Family Medicine | DX: R19.7 Diarrhea, unspecified (principal) | CPT/HCPCS: 87045; 87046; 87177; 87209; 87324; 87427 ==

== ENCOUNTER 2020-08-23 11:01 | Outpatient (CLI) | payer MEDICARE, SELFPAY ==
[2020-08-23 11:26] LABS: Hematocrit 35.6 % (35.0-42.0); Hemoglobin 12.1 g/dL (11.7-13.8); Mean Corpuscular Hemoglobin 31.8 pg (27.0-31.0); Mean Corpuscular Volume 93.4 fL (78.0-102.0); Mean Platelet Volume 12.2 fl (9.2-11.8); Platelet Count Result 247 K/mm3 (150-420); Red Blood Count 3.81 M/mm3 (4.20-5.40); White Blood Count 6.5 K/mm3 (4.8-10.8)
[2020-08-23 12:21] LABS: Alanine Aminotransferase 24 U/L (14-59); Albumin Level 2.6 g/dL (3.4-5.0); Alkaline Phosphatase 108 U/L (46-116); Anion Gap 9 mmol/L (8-16); Aspartate Amino Transferase 28 U/L (15-37); Bilirubin,Total 0.5 mg/dL (0.00-1.00); Blood Urea Nitrogen 7 mg/dL (7-18); CRP 8.6 mg/dL (0.0-0.9); Calcium 8.8 mg/dL (8.5-10.1); Carbon Dioxide 26 mmol/L (21-32); Chloride 105 mmol/L (98-108); Estimated Glomerular Filt Rate 49; Glucose 169 mg/dL (70-99); Magnesium 1.6 mg/dL (1.8-2.4); Osmolality Calculated 292 mOsm/kg (285-295); Phosphorus 3.6 mg/dL (2.6-4.7); Potassium 4.2 mmol/L (3.5-5.1); Sodium 140 mmol/L (136-145); Total Protein 6.3 g/dL (6.4-8.2)
[2020-08-23 13:06] LABS: Erythrocyte Sedimentation Rate 30 mm/hr (0-20)
[2020-08-23 13:07] LABS: Band Neutrophils Percent 0 % (0-6); Lymphocytes Percent Manual 17 % (18-44); Neutrophils Absolute Manual 4.29 K/mm3 (1.7-7.2); Neutrophils Percent Manual 66 % (46-73); Total Cells Counted 100
[2020-08-23 13:08] LABS: Basophils Percent Manual 0 % (0-1); Eosinophils Absolute Manual 0.65 K/mm3 (0.02-0.5); Eosinophils Percent Manual 10 % (1-6); Monocytes Absolute Manual 0.45 K/mm3 (0.1-0.90); Monocytes Percent Manual 7 % (3-9); Platelet Estimate Adequate (Adequate)
[2020-08-27 17:13] LABS: Rotavirus Stool Not Detected
[2020-08-29 01:10] LABS: Norovirus RNA PCR, Stool NOT DETECTED
== END 2020-08-23 11:02 | disposition home or self-care (01) ==
LOC: CHSLAB 11:04
PROVIDERS: PCP Family Medicine
DX: K52.9 Noninfective gastroenteritis and colitis, unspecified (principal)
CPT/HCPCS: 36415; 80053; 83735; 84100; 85025; 85652; 86140; 87045; 87046; 87177; 87209; 87324; 87425; 87427; 87798

== ENCOUNTER 2020-09-03 14:48 | Outpatient (CLI) | payer MEDICARE, SELFPAY ==
[2020-09-07 13:29] LABS: Vitamin D 25 Hydroxy 34 ng/mL (30-100)
== END 2020-09-03 14:49 | disposition home or self-care (01) ==
LOC: CHSLAB 14:52
PROVIDERS: PCP Family Medicine; Visit Provider Nurse Practitioner
DX: E55.9 Vitamin D deficiency, unspecified (principal)
CPT/HCPCS: 36415; 82306

== ENCOUNTER 2020-11-30 13:17 | Outpatient (CLI) | payer MEDICARE, SELFPAY ==
--- NOTE | ~2020-11-30 | XR_ITS ---
EXAMINATION: XR toe 2nd LT min 2V DATE: 11/30/2020 13:44 INDICATION: Bruising and swelling at the left second toe post injury one month prior. TECHNIQUE: Dorsal plantar, lateral and oblique views of the left second toe were obtained. COMPARISON: None FINDINGS: Bone alignment is normal. No fracture. Mild polyarticular osteoarthritis at the tarsal metatarsal, fi rst metatarsophalangeal and many of the visualized interphalangeal joints. Small juxta-articular eros ions are seen at the lateral base and medial side of the head of the first proximal phalanx. IMPRESSION: 1. No fracture or traumatic malalignment. 2. Mild polyarticular osteoarthritis in the mid and forefoot. 3. Small juxta articular erosions at the base and head of the first proximal phalanx which could be s een in the setting of gout or other inflammatory arthritis. Reviewed, dictated and finalized at location A. IMPRESSION: 1. No fracture or traumatic malalignment. 2. Mild polyarticular osteoarthritis in the mid and forefoot. 3. Small juxta articular erosions at the base and head of the first proximal ph alanx which could be seen in the setting of gout or other inflammatory arthriti s.
== END 2020-11-30 13:18 | disposition home or self-care (01) ==
LOC: CHSIMG 13:20
PROVIDERS: PCP Family Medicine; Visit Provider Nurse Practitioner
DX: S99.922A Unspecified injury of left foot, initial encounter (principal)
CPT/HCPCS: 73660

== ENCOUNTER 2021-01-08 11:38 | Outpatient (CLI) | payer MEDICARE, SELFPAY ==
[2021-01-08 12:53] LABS: Thyroid Stimulating Hormone Reflex 7.04 u/IU/mL (0.36-3.74)
[2021-01-08 13:59] LABS: Free T4 Free Thyroxine Reflex 0.85 ng/dL (0.76-1.46)
== END 2021-01-08 11:39 | disposition home or self-care (01) ==
PROVIDERS: PCP Family Medicine
DX: E03.9 Hypothyroidism, unspecified (principal)
CPT/HCPCS: 36415; 84439; 84443

== ENCOUNTER 2021-01-24 11:40 | Emergency (ER) | payer MEDICARE, SELFPAY ==
[2021-01-24 11:50] VITALS: BP 106/66; PULSE 83; RESP 20; TEMP 36.9; O2SAT 95
--- NOTE | 2021-01-24 12:23 | ED.GIBLEED ---
HPI - GI Bleed General Chief complaint: GI Bleed Stated complaint: blood in stool Time Seen by Provider: 01/24/21 12:23 Source: patient Mode of arrival: ambulatory Limitations: no limitations History of Present Illness HPI Narrative: 75-year-old woman with a history of celiac disease and DVT taking Xarelto comes in today complaining of black stools for the last 3 days. She states that she has been having some mild lightheadedness but no shortness of breath, abdominal pain, chest pain, back pain, dysuria or hematuria, blood in her stools, vomiting, fever or chills. complaint: melena Onset (ago): day(s) Severity: moderate Context: history of GI bleed Treatments Prior to Arrival: none Related Data Home Medications Medication Instructions Recorded Confirmed Xarelto 20 mg PO DAILY 03/13/20 06/22/20 losartan 25 mg PO DAILY 03/13/20 01/24/21 sertraline 100 mg PO DAILY 03/13/20 01/24/21 magnesium 2 tablet PO BID 06/22/20 01/24/21 omeprazole 20 mg PO DAILY 06/22/20 01/24/21 oxybutynin chloride 10 mg PO DAILY 06/22/20 01/24/21 ropinirole 0.25 mg PO HS 06/22/20 01/24/21 valacyclovir 2,000 mg PO BID 06/22/20 01/24/21 loperamide [Imodium] 2 mg PO Q4H PRN 01/24/21 01/24/21 vitamin A palmitate 10,000 unit PO DAILY 01/24/21 01/24/21 vitamin E [Natural Vitamin E] 200 unit PO DAILY 01/24/21 01/24/21 zinc sulfate 220 mg PO DAILY 01/24/21 01/24/21 Allergies Allergy/AdvReac Type Severity Reaction Status Date / Time No Known Allergies Allergy Unverified 12/04/18 09:21 Review of Systems Review of Systems: All systems reviewed & are unremarkable except as noted in HPI and below Constitutional: Constitutional: Denies chills, Denies fatigue, Denies fever(s) and Denies weakness Eyes: Eyes: Denies change in vision and Denies photophobia ENT: Denies nasal congestion and Denies sore throat Cardiovascular: Cardiovascular: Denies chest pain and Denies radiating jaw, neck or arm pain Respiratory: Respiratory: Denies cough, Denies dyspnea and Denies wheezing Gastrointestinal: Gastrointestinal: Denies abdominal pain, Reports diarrhea (intermittent, chronic), Denies nausea and Denies vomiting Genitourinary: Genitourinary: Denies hematuria, Denies nocturia and Denies dysuria Musculoskeletal: Musculoskeletal: Denies back pain, Denies arthralgias and Denies joint swelling Integumentary/Breasts: Skin/Breast: Denies pruritus, Denies erythema and Denies rash Neurologic: Denies vertigo, Denies dizziness and Denies syncope Hematologic/Lymphatic: Hematologic/Lymphatic: Reports easy bleeding and Reports easy bruising Allergic/Immunologic: Allergic/Immunologic: Denies lip swelling and Denies tongue swelling PMFSH Past Medical History Medical History Anxiety Celiac disease DVT (deep venous thrombosis) Gait instability GERD (gastroesophageal reflux disease) Hypertension Hypothyroidism Portal vein thrombosis Surgical History Surgical History H/O shoulder surgery History of appendectomy History of Family History Family History Father Cerebrovascular accident Social History Social History Smoking status: Never smoker Alcohol intake: current Drinks per week: 1 Substance use: never Substance use type: does not use Gender identity (if verbalized by the patient): Female Spiritual care concerns: No Exam Const: General: healthy appearing, no acute distress and alert Orientation/consciousness: patient oriented x3 Limitations: no limitations HENMT: Head: normal to inspection Mouth: Yes moist mucous membranes Throat: posterior oropharynx normal Eyes: Conjunctivae: conjunctivae normal Pupils: Equal, round and reactive pupils present EOM: EOMs intact bilaterally Resp: Effort & Inspecti
[2021-01-24] MEDS: PANTOPRAZOLE SODIUM IV 40 MG VIAL 80 MG IV PUSH (12:35)
[2021-01-24 12:47] LABS: Occult Blood Positive (Negative)
[2021-01-24 12:49] LABS: Hematocrit 29.4 % (35.0-42.0); Hemoglobin 9.7 g/dL (11.7-13.8); Mean Corpuscular Hemoglobin 33.9 pg (27.0-31.0); Mean Corpuscular Volume 102.8 fL (78.0-102.0); Mean Platelet Volume 11.8 fl (9.2-11.8); Platelet Count Result 190 K/mm3 (150-420); Red Blood Count 2.86 M/mm3 (4.20-5.40); Red Cell Distribution Width 14.7 % (11.6-14.4); White Blood Count 7.5 K/mm3 (4.8-10.8)
[2021-01-24 13:04] LABS: INR 1.2; Partial Thromboplastin Time 30.9 SEC (23.90-30.70); Prothrombin Time 12.5 Seconds (9.50-12.10)
[2021-01-24 13:05] VITALS: BP 123/76; PULSE 86; O2SAT 98
[2021-01-24 13:07] LABS: Alanine Aminotransferase 18 U/L (14-59); Albumin Level 2.9 g/dL (3.4-5.0); Alkaline Phosphatase 123 U/L (46-116); Anion Gap 9 mmol/L (8-16); Aspartate Amino Transferase 22 U/L (15-37); Bilirubin,Total 0.3 mg/dL (0.00-1.00); Blood Urea Nitrogen 16 mg/dL (7-18); Calcium 8.9 mg/dL (8.5-10.1); Carbon Dioxide 27 mmol/L (21-32); Chloride 104 mmol/L (98-108); Estimated Glomerular Filt Rate 48; Glucose 118 mg/dL (70-99); Osmolality Calculated 292 mOsm/kg (285-295); Potassium 4.1 mmol/L (3.5-5.1); Sodium 140 mmol/L (136-145); Total Protein 6.4 g/dL (6.4-8.2)
[2021-01-24 13:11] LABS: Lactic Acid Reflex 1.9 mmol/L (0.4-2.0)
[2021-01-24 13:17] LABS: Band Neutrophils Percent 0 % (0-6); Basophils Percent Manual 0 % (0-1); Eosinophils Absolute Manual 3.45 K/mm3 (0.02-0.5); Eosinophils Percent Manual 46 % (1-6); Lymphocytes Absolute Manual 1.27 K/mm3 (1.1-4.5); Lymphocytes Percent Manual 17 % (18-44); Monocytes Percent Manual 4 % (3-9); Neutrophils Absolute Manual 2.47 K/mm3 (1.7-7.2); Neutrophils Percent Manual 33 % (46-73); Total Cells Counted 100
[2021-01-24 13:18] LABS: Platelet Estimate Adequate (Adequate)
[2021-01-24 13:30] VITALS: BP 122/70; PULSE 78
[2021-01-24 13:33] VITALS: BP 91/63; PULSE 92
[2021-01-24] MEDS: SODIUM CHLORIDE 0.9% IV 1,000 ML 999 ML (13:45)
--- NOTE | 2021-01-24 14:07 | PC.NURSE ---
YO CALLED FOR CONSULT WITH DR VARNER
--- NOTE | 2021-01-24 14:47 | PC.NURSE ---
AWAITING BED ASSIGNMENT AT [facility] UPDATED
--- NOTE | 2021-01-24 15:52 | PC.NURSE ---
PT TAKEN TO ROOM 227 FOR ER HOLD - [facility] 1-2 DAY WAITING LIST - REPORT TO ZEHRA
[2021-01-24 15:55] VITALS: BP 147/85; PULSE 80; O2SAT 98
--- NOTE | 2021-01-24 16:15 | PC.NURSE ---
Patient admitted to second floor room 227 as ER hold awaiting bed at [place]. Patient A&O x4, pleasant, cooperative. Oriented to room and call light.
[2021-01-24] MEDS: DEXTROSE 5%/0.9% SOD CHL 1,000 ML 150 ML IV CONT (18:03)
[2021-01-24 18:06] LABS: Hematocrit 29.1 % (35.0-42.0); Hemoglobin 9.3 g/dL (11.7-13.8)
[2021-01-24] MEDS: valACYclovir HCL 500 MG TABLET 2000 MG PO (21:18)
--- NOTE | 2021-01-24 21:21 | PC.NURSE ---
Patient alert and oriented x3. Has not had any BMs this shift.
[2021-01-24 21:28] VITALS: BP 131/52; PULSE 68; RESP 16; TEMP 36.5; O2SAT 97
[2021-01-24] MEDS: rOPINIRole HCL 0.25 MG TABLET PO (21:45)
[2021-01-24 23:59] LABS: Hemoglobin 9.9 g/dL (11.7-13.8)
[2021-01-25] VITALS (9 sets, daily range): BP systolic 132–168; BP diastolic 68–96; PULSE 68–82; RESP 14–20; TEMP 36.3–36.8; O2SAT 97–99
[2021-01-25] MEDS: clonazePAM (*CRX) 0.5 MG TABLET 1 MG PO (00:02)
[2021-01-25] MEDS: DEXTROSE 5%/0.9% SOD CHL 1,000 ML 150 ML IV CONT ×2 (01:02→09:13)
--- NOTE | 2021-01-25 04:23 | PC.NURSE ---
Patient resting. Up to toilet independently. Fluids continue as ordered. No further BMs.
[2021-01-25 06:16] LABS: Hematocrit 29.3 % (35.0-42.0); Hemoglobin 9.3 g/dL (11.7-13.8)
--- NOTE | 2021-01-25 07:30 | PC.NURSE ---
Patient resting in bed on left side. Denies any pain/discomfort. States no needs at this time. Call light at side.
[2021-01-25] MEDS: VITAMIN E 400 UNIT CAPSULE PO (09:00)
[2021-01-25] MEDS: ZINC SULFATE 220 MG CAPSULE PO (09:00)
[2021-01-25] MEDS: PANTOPRAZOLE SODIUM IV 40 MG VIAL IV PUSH (09:01)
[2021-01-25] MEDS: LOSARTAN POTASSIUM 25 MG TABLET PO (09:03)
[2021-01-25] MEDS: MAGNESIUM OXIDE 400 MG TABLET PO (09:03)
[2021-01-25] MEDS: SERTRALINE HCL 50 MG TABLET 100 MG PO (09:03)
[2021-01-25 12:46] LABS: Rheumatoid Factor Screen Negative (Negative)
--- NOTE | 2021-01-25 13:00 | PC.NURSE ---
Contacted one call line at [place] and updated raw stock machine feeder on vital signs, still waiting on discharges, no bed yet, will call when ready, but it is ok if we call to check in for updates.
--- NOTE | 2021-01-25 18:45 | ED.GIBLEED ---
HPI - GI Bleed General Chief complaint: GI Bleed Stated complaint: blood in stool Time Seen by Provider: 01/24/21 12:23 Source: patient Mode of arrival: ambulatory Limitations: no limitations History of Present Illness HPI Narrative: Diane comes in after having black stools at home and feeling weak. Weakness has been moderately severe and ongoing, and appears to be associated with the dark stools, ongoin since last pm. MD complaint: melena Onset (ago): hour(s) Severity: moderate Relieving factors: none Exacerbating factors: none Context: history of GI bleed Associated symptoms: denies other symptoms Treatments Prior to Arrival: none Related Data Home Medications Medication Instructions Recorded Confirmed Xarelto 20 mg PO DAILY 03/13/20 01/25/21 losartan 25 mg PO DAILY 03/13/20 01/24/21 sertraline 100 mg PO DAILY 03/13/20 01/24/21 magnesium 2 tablet PO BID 06/22/20 01/24/21 omeprazole 20 mg PO DAILY 06/22/20 01/24/21 oxybutynin chloride 10 mg PO DAILY 06/22/20 01/24/21 ropinirole 0.25 mg PO HS 06/22/20 01/24/21 loperamide [Imodium] 2 mg PO Q4H PRN 01/24/21 01/24/21 vitamin A palmitate 10,000 unit PO DAILY 01/24/21 01/24/21 vitamin E [Natural Vitamin E] 200 unit PO DAILY 01/24/21 01/24/21 zinc sulfate 220 mg PO DAILY 01/24/21 01/24/21 Allergies Allergy/AdvReac Type Severity Reaction Status Date / Time gluten AdvReac Unknown Verified 01/25/21 12:53 wheat AdvReac Unknown Verified 01/25/21 12:53 Review of Systems Constitutional: Constitutional: Reports no additional constitutional complaints Eyes: Eyes: Reports no additional eye complaints ENT: Reports system reviewed and no additional complaints, except as documented Cardiovascular: Cardiovascular: Reports no additional cardiovascular complaints Respiratory: Respiratory: Reports no additional respiratory complaints Gastrointestinal: Gastrointestinal: Reports no additional gastrointestinal complaints Genitourinary: Genitourinary: Reports no additional female genitourinary complaints Musculoskeletal: Musculoskeletal: Reports no additional musculoskeletal complaints Integumentary/Breasts: Skin/Breast: Reports system reviewed and no additional complaints, except as docu Neurologic: Reports system reviewed and no additional complaints, except as documented Psychiatric: Psychiatric: Reports no additional psychiatric complaints Endocrine: Endocrine: Reports no additional endocrine complaints Hematologic/Lymphatic: Hematologic/Lymphatic: Reports no additional hematologic/lymphatic complaints Allergic/Immunologic: Allergic/Immunologic: Reports no additional allergic/immunologic complaints PMFSH Past Medical History Medical History Anxiety Celiac disease DVT (deep venous thrombosis) Gait instability GERD (gastroesophageal reflux disease) Hypertension Hypothyroidism Portal vein thrombosis Surgical History Surgical History H/O shoulder surgery History of appendectomy History of Family History Family History Father Cerebrovascular accident Social History Social History Smoking status: Never smoker Alcohol intake: current Drinks per week: 1 Substance use: never Substance use type: does not use Gender identity (if verbalized by the patient): Female Spiritual care concerns: No Exam Const: General: no acute distress Orientation/consciousness: patient oriented x3 HENMT: Head: normal to inspection Eyes: Conjunctivae: conjunctivae normal Chest: Chest palpation & inspection: normal inspection of the chest Resp: Effort & Inspection: normal respiratory effort Auscultation: clear to auscultation bilaterally Cardio: Rate: regular rate Rhythm: regular rhythm GI: GI Palp: Yes Soft to palpation (nontender) Skin: G
--- NOTE | 2021-01-25 19:14 | PC.NURSE ---
Recieved call from [facility] stating they have a bed for patient. Patient to go to [facility] Room [id number].Patient, family notified. notified.
--- NOTE | 2021-01-25 20:20 | PC.NURSE ---
Patient discharged and transferred to [facility] via EMT. All items have been packed and sent with patient. IV placed to Rt. wrist removed prior to discharge and transfer. Report given to [facility] nursing staff at [facility].
[2021-01-28 10:42] LABS: Anti Cyclic Citrullinated Pept <16 Units (<20)
== END 2021-01-25 20:20 | disposition short-term general hospital (02) ==
LOC: CHSED 15:13 → CHS2ND 15:45
PROVIDERS: Emergency Medicine; Emergency Provider Emergency Medicine; PCP Family Medicine
DX: K92.1 Melena (principal); K92.2 Gastrointestinal hemorrhage, unspecified; I95.1 Orthostatic hypotension; Z86.718 Personal history of other venous thrombosis and embolism; Z79.01 Long term (current) use of anticoagulants; K21.9 Gastro-esophageal reflux disease without esophagitis; E03.9 Hypothyroidism, unspecified
CPT/HCPCS: 36415; 80053; 82272; 83605; 85014; 85018; 85025; 85610; 85730; 86200; 86430; 87040; 96361; 96374; 96376; 99285; A9270; C9113; J7030; J7042

== ENCOUNTER 2021-02-18 15:03 | Outpatient (NON) | payer MEDICARE, SELFPAY | END 2021-02-18 15:04 | disposition home or self-care (01) | LOC: CHSLAB 15:10 | PROVIDERS: PCP Family Medicine | DX: R19.7 Diarrhea, unspecified (principal) | CPT/HCPCS: 87324 ==

== ENCOUNTER 2021-03-07 15:19 | Outpatient (CLI) | payer MEDICARE, SELFPAY ==
[2021-03-07 17:00] LABS: Free T4 Free Thyroxine 1.09 ng/dL (0.76-1.46); Thyroid Stimulating Hormone 0.87 uIU/mL (0.36-3.74)
== END 2021-03-07 15:20 | disposition home or self-care (01) ==
PROVIDERS: PCP Family Medicine
DX: E03.9 Hypothyroidism, unspecified (principal)
CPT/HCPCS: 36415; 84439; 84443

== ENCOUNTER 2021-03-28 13:34 | Outpatient (CLI) | payer MEDICARE, SELFPAY ==
[2021-03-28 15:35] LABS: SARS-CoV-2 RNA PCR Negative (Negative)
== END 2021-03-28 13:35 | disposition home or self-care (01) ==
LOC: CHSLAB 13:37
PROVIDERS: PCP Family Medicine; Visit Provider Family Medicine
DX: Z01.818 Encounter for other preprocedural examination (principal); Z20.822 Contact with and (suspected) exposure to COVID-19
CPT/HCPCS: C9803; U0003; U0005

== ENCOUNTER 2021-04-14 14:24 | Outpatient (CLI) | payer MEDICARE, SELFPAY ==
[2021-04-14 15:07] LABS: SARS-CoV-2 Ag Negative (Negative)
== END 2021-04-14 14:25 | disposition home or self-care (01) ==
LOC: CHSLAB 14:27
PROVIDERS: PCP Family Medicine; Visit Provider Family Medicine
DX: R53.83 Other fatigue (principal); Z20.822 Contact with and (suspected) exposure to COVID-19
CPT/HCPCS: 87426; C9803

== ENCOUNTER 2021-04-14 16:37 | Observation (INO) | payer MEDICARE, SELFPAY ==
--- NOTE | ~2021-04-14 | CT_ITS ---
EXAMINATION: CTA chest PE protocol DATE: 04/14/2021 19:05 INDICATION: Shortness of breath. TECHNIQUE: Computed tomography angiography (CTA) of the chest was performed with 100 mL Omnipaque-350 intravenous contrast timed to evaluate the pulmonary arteries. Coronal maximum intensity projection 3D-reconstructions were created by the technologist. Automated exposure control and iterative reconst ruction technique were employed. The dose-length product was 335.04 mGy-cm. COMPARISON: Chest CT 03/29/2020 FINDINGS: There are moderate-sized bilateral pleural effusions. There is dependent atelectasis bilate rally. There is smooth septal thickening bilaterally. There are mild groundglass opacities in right u pper lobe. These findings are consistent with pulmonary edema. Cardiomegaly is noted. There is a mode rate-sized pericardial effusion. There is no pulmonary embolus. There are changes of interval resecti on of the breast implants with fluid collections in the surgical beds, likely seromas. There is a mod erate volume of ascites. There is severe atrophy of right kidney. There is mild thoracic spondylosis. IMPRESSION: 1. No pulmonary embolus. 2. Mild pulmonary edema. 3. Moderate-sized pleural effusions. 4. Cardiomegaly, worsened from 03/29/2020. 5. Moderate-sized pericardial effusion, new from 03/29/2020. 6. Interval surgical changes of the breasts with fluid collections, likely seromas. 7. Moderate volume of ascites. Reviewed, dictated and finalized at location A. IMPRESSION: 1. No pulmonary embolus. 2. Mild pulmonary edema. 3. Moderate-sized pleural effusions. 4. Cardiomegaly, worsened from 03/29/2020. 5. Moderate-sized pericardial effusion, new from 03/29/2020. 6. Interval surgical changes of the breasts with fluid collections, likely sero mas. 7. Moderate volume of ascites.
--- NOTE | ~2021-04-14 | XR_ITS ---
EXAMINATION: XR chest 2V DATE: 04/14/2021 17:35 INDICATION: Shortness of breath. Cough. TECHNIQUE: Frontal and lateral views of the chest were obtained. COMPARISON: Chest 2 views 08/10/20, CT abdomen and pelvis 06/22/2020 FINDINGS: There are small pleural effusions. There are airspace opacities at the lung bases. There is mild scarring at the lung apices. No pneumothorax. There is enlargement of the cardiac silhouette. IMPRESSION: 1. Small pleural effusions. 2. Airspace opacities at the lung bases, consistent with atelectasis versus pneumonia. 3. Worsened enlargement of the cardiac silhouette, consistent with cardiomegaly and/or pericardial ef fusion. Reviewed, dictated and finalized at location A. IMPRESSION: 1. Small pleural effusions. 2. Airspace opacities at the lung bases, consistent with atelectasis versus pne umonia. 3. Worsened enlargement of the cardiac silhouette, consistent with cardiomegaly and/or pericardial effusion.
[2021-04-14 17:00] VITALS: BP 130/93; PULSE 120; RESP 22; TEMP 36.4; O2SAT 95
--- NOTE | 2021-04-14 17:01 | ECG_ITS ---
Measurements Intervals [place] Rate: 119 P: 79 NE: 210 QRS: 66 QRSD: 96 T: 269 QT: 319 QTc: 449 Interpretive Statements SUPRAVENTRICULAR TACHYCARDIA DELAYED PRECORDIAL R/S TRANSITION LOW QRS VOLTAGE IN LIMB LEADS NONSPECIFIC ST & T-WAVE ABNORMALITY- DIFFUSE LEADS BASELINE ARTIFACT- II, III, AVR, AVL, AVF, V1-V3 ABNORMAL ECG Electronically Signed On 04-14-2021 20:18:26 CDT by Andres Mcdonald D.O.
[2021-04-14 17:29] LABS: Hematocrit 27.3 % (35.0-42.0); Hemoglobin 8.4 g/dL (11.7-13.8); Mean Corpuscular HGB Conc 30.8 g/dL (32.0-36.0); Mean Corpuscular Volume 84.5 fL (78.0-102.0); Mean Platelet Volume 11.7 fl (9.2-11.8); Platelet Count Result 155 K/mm3 (150-420); Red Blood Count 3.23 M/mm3 (4.20-5.40); Red Cell Distribution Width 19.5 % (11.6-14.4); White Blood Count 10.1 K/mm3 (4.8-10.8)
[2021-04-14 17:40] LABS: INR 2.7; Partial Thromboplastin Time 37.9 SEC (23.90-30.70); Prothrombin Time 27.7 Seconds (9.50-12.10)
[2021-04-14 17:44] LABS: Lactic Acid Reflex 2.3 mmol/L (0.4-2.0)
[2021-04-14 17:49] LABS: Occult Blood Negative (Negative)
[2021-04-14] MEDS: SODIUM CHLORIDE 0.9% IV 1,000 ML 999 ML IV CONT (17:49)
[2021-04-14 17:51] LABS: Alanine Aminotransferase 940 U/L (14-59); Albumin Level 3.1 g/dL (3.4-5.0); Alkaline Phosphatase 199 U/L (46-116); Ammonia 29 umol/L (11-32); Anion Gap 9 mmol/L (8-16); Bilirubin,Total 0.8 mg/dL (0.00-1.00); Blood Urea Nitrogen 28 mg/dL (7-18); Calcium 8.1 mg/dL (8.5-10.1); Carbon Dioxide 23 mmol/L (21-32); Chloride 101 mmol/L (98-108); Estimated CRCL calculation 32 ml/min; Estimated Glomerular Filt Rate 37; Glucose 120 mg/dL (70-99); Lipase 44 U/L (73-393); Magnesium 2.3 mg/dL (1.8-2.4); Osmolality Calculated 282 mOsm/kg (285-295); Potassium 4.7 mmol/L (3.5-5.1); Sodium 133 mmol/L (136-145); Total Protein 6.3 g/dL (6.4-8.2)
[2021-04-14 17:58] LABS: Band Neutrophils Percent 0 % (0-6); Basophils Percent Manual 0 % (0-1); Eosinophils Percent Manual 0 % (1-6); Lymphocytes Absolute Manual 1.01 K/mm3 (1.1-4.5); Lymphocytes Percent Manual 10 % (18-44); Monocytes Absolute Manual 1.01 K/mm3 (0.1-0.90); Monocytes Percent Manual 10 % (3-9); Neutrophils Absolute Manual 8.08 K/mm3 (1.7-7.2); Neutrophils Percent Manual 80 % (46-73); Total Cells Counted 100
[2021-04-14 17:59] LABS: Nucleated Red Blood Cells 2 %; Platelet Estimate Adequate (Adequate)
[2021-04-14 18:07] LABS: NT Pro B Type Natriuretic Pept 5137 pg/mL (0-125); Troponin I 21.8 ng/L (0.00-60.4)
--- NOTE | 2021-04-14 18:31 | ED.WEAKNESS ---
HPI - Weakness General Chief complaint: Weakness Stated complaint: Trouble breathing Source: patient and family Mode of arrival: wheelchair Limitations: no limitations History of Present Illness HPI Narrative: this is a 75-year-old female history DVT currently on Xarelto history of celiac disease and anemia recently had an iron infusion. The patient also has a history of a breast implant removal approximately 4 months ago and her Xarelto was decreased at that time. Currently the patient presents with some increasing shortness of breath with no audible wheezing no fever or chills heart rate is increased up to 119 with no chest pain no abdominal pain no flank pain no dysuria no nausea vomiting no diarrhea constipation. The patient has no cough no fever chills. Patient also has a history of portal vein thrombosis, with hypertension and GERD. MD Complaint: generalized weakness Onset (ago): day(s) Duration: constant Severity: moderate Associated symptoms: shortness of breath Related Data Home Medications Medication Instructions Recorded Confirmed Xarelto 10 mg PO DAILY 03/13/20 04/14/21 losartan 25 mg PO DAILY 03/13/20 04/14/21 sertraline 100 mg PO DAILY 03/13/20 04/14/21 magnesium 2 tablet PO BID 06/22/20 04/14/21 omeprazole 40 mg PO DAILY 06/22/20 04/14/21 oxybutynin chloride 10 mg PO DAILY 06/22/20 04/14/21 loperamide [Imodium] 2 mg PO Q4H PRN 01/24/21 04/14/21 vitamin A palmitate 10,000 unit PO DAILY 01/24/21 04/14/21 vitamin E [Natural Vitamin E] 200 unit PO DAILY 01/24/21 04/14/21 zinc sulfate 220 mg PO DAILY 01/24/21 04/14/21 ropinirole 1 mg PO HS 04/14/21 04/14/21 Allergies Allergy/AdvReac Type Severity Reaction Status Date / Time gluten AdvReac Unknown Verified 01/25/21 12:53 wheat AdvReac Unknown Verified 01/25/21 12:53 Review of Systems Review of Systems: All systems reviewed & are unremarkable except as noted in HPI and below PMFSH Past Medical History Medical History Anxiety Celiac disease DVT (deep venous thrombosis) Gait instability GERD (gastroesophageal reflux disease) Hypertension Hypothyroidism Portal vein thrombosis Surgical History Surgical History H/O shoulder surgery History of appendectomy History of Family History Family History Father Cerebrovascular accident Social History Social History Smoking status: Never smoker Alcohol intake: current Drinks per week: 1 Substance use: never Substance use type: does not use Gender identity (if verbalized by the patient): Female Sexual Orientation (if Verbalized by the Patient): Straight or Heterosexual Spiritual care concerns: No Exam Const: General: no acute distress Orientation/consciousness: patient oriented x3 HENMT: Head: normal to inspection Eyes: Conjunctivae: conjunctivae normal Pupils: Equal, round and reactive pupils present Direct Ophthalmoscopy: no photophobia Chest: Chest palpation & inspection: normal inspection of the chest Resp: Effort & Inspection: normal respiratory effort Auscultation: crackles Course Course Emergency Course: patient with shortness of breath some tachycardic recent breast implant removal and currently on Xarelto for lower extremity DVT had her Xarelto decreased during breast implant removal, presents with shortness of breath labs reviewed with patient chest x-ray reviewed with patient patient has an elevated D-dimer and will obtain CTA. CTA was reviewed and there was no pulmonary embolism patient had a BNP that was greater than 5000 patient on x-ray shows that has possible opacities consistent with pneumonia, will start ceftriaxone along with azithromycin and 40 of Lasix. Vital Signs Vital signs: Vital Signs Temperature 36.4 C 04/14/21 17:00
[2021-04-14 18:32] VITALS: BP 131/80; PULSE 121; RESP 22; O2SAT 99
[2021-04-14 18:34] LABS: D Dimer 11.94 mg/L (0.19-0.50)
--- NOTE | 2021-04-14 18:34 | PC.NURSE ---
Pt ambulatory to bathroom with nurse at side.
[2021-04-14 19:00] VITALS: PULSE 117
[2021-04-14 19:04] LABS: Appearance Urine Clear (Clear); Bilirubin Urine Negative (Negative); Color Urine Yellow (Yellow); Glucose Urine UA Negative (Negative); Ketones Urine Trace (Negative); Leukocyte Esterase Ur Trace (Negative); Nitrate Urine Negative (Negative); Protein Urine 2+ (Negative); Specific Grav Ur >= 1.030 (1.010-1.020); Urobilinogen Urine 0.2 mg/dL (0.2-1.0)
[2021-04-14 19:09] LABS: Add Urine Microscopic? YES; Bacteria Urine 4+ /hpf; Blood Urine Trace-Intact (Negative); Squamous Epithelial Cell Urine None seen /hpf (Few)
--- NOTE | 2021-04-14 19:22 | PC.NURSE ---
report to mir song
[2021-04-14 19:33] VITALS: BP 130/95; PULSE 118; RESP 24; TEMP 36.6; O2SAT 96
--- NOTE | 2021-04-14 19:35 | PC.NURSE ---
Pt. given food tray to eat. Pt is gluten free.
[2021-04-14] MEDS: FUROSEMIDE INJ 40 MG/4 ML VIAL IV PUSH (19:44)
[2021-04-14 19:50] VITALS: BP 124/87; PULSE 115; RESP 24; O2SAT 98
[2021-04-14 20:26] LABS: Reflex Lactic Acid Yes or No Add Lactic
[2021-04-14 20:57] VITALS: BP 120/78; PULSE 111; RESP 22; TEMP 36.4; O2SAT 96
[2021-04-14 21:14] VITALS: BMI 26.6
[2021-04-14] MEDS: rOPINIRole HCL 1 MG TABLET PO (21:50)
--- NOTE | 2021-04-14 22:54 | PC.NURSE ---
pt resting in bed, charge nurse aware pt would like her clonazepam for sleep and will call rosemarie manning, joseph near bed, tele on
[2021-04-15] VITALS (9 sets, daily range): BP systolic 119–150; BP diastolic 84–100; PULSE 80–124; RESP 16–20; TEMP 36.6–37; O2SAT 93–95
--- NOTE | 2021-04-15 02:15 | PC.NURSE ---
Sleeping, no shortness of breath noted. No distress noted. Head of bed up 20 degrees.
--- NOTE | 2021-04-15 04:12 | PC.NURSE ---
c/o of mid-sternal chest discomfort after getting up to the bathroom and activity. Joanna, head doffer informed VSS and patient complaints, no change in Telemetry. Joanna spoke with patient and patient states no discomfort now, but had after going to bathroom to void.
--- NOTE | 2021-04-15 05:03 | PC.NURSE ---
Fannie, tracer clerk contacted Dr. Sears regarding midsternal Chest discomfort. Order received for Trop and Lab notified.
[2021-04-15 05:29] LABS: Hematocrit 27.7 % (35.0-42.0); Hemoglobin 8.7 g/dL (11.7-13.8); Mean Corpuscular HGB Conc 31.4 g/dL (32.0-36.0); Mean Corpuscular Hemoglobin 26.2 pg (27.0-31.0); Mean Corpuscular Volume 83.4 fL (78.0-102.0); Mean Platelet Volume 11.9 fl (9.2-11.8); Platelet Count Result 173 K/mm3 (150-420); Red Blood Count 3.32 M/mm3 (4.20-5.40); Red Cell Distribution Width 19.8 % (11.6-14.4); White Blood Count 10.6 K/mm3 (4.8-10.8)
[2021-04-15 05:53] LABS: Lactic Acid 1.4 mmol/L (0.4-2.0)
[2021-04-15 05:54] LABS: Magnesium 2.2 mg/dL (1.8-2.4); NT Pro B Type Natriuretic Pept 5148 pg/mL (0-125); Troponin I 23.5 ng/L (0.00-60.4)
[2021-04-15 06:05] LABS: Band Neutrophils Percent 0 % (0-6); Basophils Percent Manual 0 % (0-1); Eosinophils Percent Manual 0 % (1-6); Lymphocytes Absolute Manual 0.84 K/mm3 (1.1-4.5); Lymphocytes Percent Manual 8 % (18-44); Monocytes Absolute Manual 1.37 K/mm3 (0.1-0.90); Monocytes Percent Manual 13 % (3-9); Neutrophils Absolute Manual 8.26 K/mm3 (1.7-7.2); Neutrophils Percent Manual 78 % (46-73); Nucleated Red Blood Cells 5 %; Platelet Estimate Adequate (Adequate)
--- NOTE | 2021-04-15 07:00 | ECHO_ITS ---
Patient Info Name: Diane Silva Age: 75 years : 1945 Gender: Female Ht: 68 in Wt: 175 lbs BSA: 1.97 m2 HR: 136 bpm BP: 166 / 98 mmHg Exam Date: 04/15/2021 2:33 PM Exam Location: [facility] EMERGENCY DEPARTMENT Patient Status: Outpatient Admit Date: 04/14/2021 Staff Ordering Physician: Freddy Sears MD Licensing Services Clerk: Darrell Henriquez RDCS, RT Attending Provider: Freddy Sears MD Referring Physician: Renu PEREZ; Exam Type: CA echo doppler color flow Study Info Indications R06.02 - Shortness of breath Complete two-dimensional, color flow and Doppler transthoracic echocardiogram is performed. Strain analysis performed. Summary 1. Complete two-dimensional, color flow and Doppler transthoracic echocardiogram is performed. 2. Left ventricular chamber dimension is moderately enlarged. 3. Left ventricular systolic function is severely reduced, estimated at 15-20%. 4. There is mildly increased left ventricular wall thickness. 5. Left ventricular septal wall motion is abnormal with septal motion related to bundle branch block. 6. The left ventricular diastolic function is abnormal. 7. E/e' 12 is mildly elevated. 8. Global longitudinal strain is abnormal at -6.8%. 9. Right ventricular systolic function is reduced and with abnormal TAPSE 1.4 cm. 10. Right ventricular chamber dimension is mildly enlarged. 11. Left atrial chamber dimension is moderately enlarged. 12. Right atrial chamber dimension is mildly enlarged. 13. There is severe mitral valve regurgitation. 14. There is moderate to severe tricuspid valve regurgitation. 15. No pulmonary hypertension, estimated pulmonary arterial systolic pressure is 37 mmHg. 16. There is trace pulmonic regurgitation. 17. Dilated inferior vena cava with <50% collapse upon inspiration consistent with significantly elevated right atrial pressure, 15 mmHg. 18. There is trivial pericardial effusion. Left Ventricle E/e' 12 is mildly elevated. Global longitudinal strain is abnormal at -6.8%. Left ventricular chamber dimension is moderately enlarged. Left ventricular systolic function is severely reduced, estimated at 15-20%. There is mildly increased left ventricular wall thickness. Left ventricular septal wall motion is abnormal with septal motion related to bundle branch block. The left ventricular diastolic function is abnormal. Right Ventricle Right ventricular systolic function is reduced and with abnormal TAPSE 1.4 cm. Right ventricular chamber dimension is mildly enlarged. Left Atria Left atrial chamber dimension is moderately enlarged. Right Atria Right atrial chamber dimension is mildly enlarged. Aortic Valve The aortic valve is trileaflet. There is no aortic valve stenosis. There is no aortic valve regurgitation. Pulmonic Valve There is trace pulmonic regurgitation. Mitral Valve There is no mitral valve stenosis. There is severe mitral valve regurgitation. Tricuspid Valve There is moderate to severe tricuspid valve regurgitation. No pulmonary hypertension, estimated pulmonary arterial systolic pressure is 37 mmHg. Pericardium/Pleural There is trivial pericardial effusion. Inferior Vena Cava Dilated inferior vena cava with <50% collapse upon inspiration consistent with significantly elevated right atrial pressure, 15 mmHg. Aorta The aortic root size at the sinus of Valsalva is normal. Left Ventricular Outflow Tract Name
[2021-04-15] MEDS: ZINC SULFATE 220 MG CAPSULE PO (08:34)
[2021-04-15] MEDS: VITAMIN E 400 UNIT CAPSULE PO (08:34)
[2021-04-15] MEDS: FUROSEMIDE INJ 40 MG/4 ML VIAL IV PUSH (08:35)
[2021-04-15] MEDS: MAGNESIUM OXIDE 400 MG TABLET PO ×2 (08:35→18:05)
[2021-04-15] MEDS: LOSARTAN POTASSIUM 25 MG TABLET PO (08:36)
[2021-04-15] MEDS: PANTOPRAZOLE 40 MG TABLET PO (08:36)
[2021-04-15] MEDS: SERTRALINE HCL 50 MG TABLET 100 MG PO (08:36)
[2021-04-15 11:20] LABS: INR 1.8; Prothrombin Time 19.1 Seconds (9.50-12.10)
--- NOTE | 2021-04-15 12:15 | PM.IMHP ---
H&P: HPI History of Present Illness Date/Time: 04/15/21 12:15 Pt being admitted for Observation for UTI, CHF, and Pneumonia Diane Silva is a 75 year old female who presents with shortness of breath. Pt states she has had a cough that has persisted for a long time, months. Pt denies fevers, chills, body aches, N/V. Pt is on Xarelto for DVT though her INR was 2.6 and Xarelto was held at this time. She is negative for COVID. While interviewing the Pt she was able to complete sentences and did not appear to have increased work of breathing or SOB at this time. Pt denies flank pain, lower abdominal pain, dysuria. She is positive for a UTI. Pt states she does have some chest pain that is worse with laying down and resolved with sitting or standing. CTA report states moderate-sized pericardial effusion, new from 03/29/2020. Chief Complaint: SOB Review of Systems Constitutional: Constitutional: Reports no additional constitutional complaints, Denies body ache(s), Denies chills, Denies fever(s) and Denies headache(s) Cardiovascular: Cardiovascular: Reports no additional cardiovascular complaints and Reports chest pain (resolved with sitting and standing, worse with laying down) Respiratory: Respiratory: Reports no additional respiratory complaints, Reports cough and Denies dyspnea Gastrointestinal: Gastrointestinal: Reports no additional gastrointestinal complaints and Denies abdominal pain Genitourinary: Genitourinary: Reports no additional female genitourinary complaints Musculoskeletal: Musculoskeletal: Reports no additional musculoskeletal complaints Neurologic: Reports system reviewed and no additional complaints, except as documented, Reports Normal hearing present, Denies dizziness, Denies syncope and Denies focal weakness Psychiatric: Psychiatric: Reports no additional psychiatric complaints [facility] Past Medical History Medical History Anxiety Celiac disease DVT (deep venous thrombosis) Gait instability GERD (gastroesophageal reflux disease) Hypertension Hypothyroidism Portal vein thrombosis Surgical History Surgical History H/O shoulder surgery History of appendectomy History of Family History Family History Father Cerebrovascular accident Social History Social History Smoking status: Never smoker Second hand tobacco smoke exposure: Yes Alcohol intake: never Drinks per week: 1 Substance use: never Substance use type: does not use Gender identity (if verbalized by the patient): Female Sexual Orientation (if Verbalized by the Patient): Straight or Heterosexual Spiritual care concerns: No Meds Home Medications and Allergies Home Medications Medication Instructions Recorded Confirmed Type Xarelto 10 mg PO DAILY 03/13/20 04/14/21 History losartan 25 mg PO DAILY 03/13/20 04/14/21 History sertraline 100 mg PO DAILY 03/13/20 04/14/21 History magnesium 2 tablet PO BID 06/22/20 04/14/21 History omeprazole 40 mg PO DAILY 06/22/20 04/14/21 History oxybutynin chloride 10 mg PO DAILY 06/22/20 04/14/21 History loperamide [Imodium] 2 mg PO Q4H PRN 01/24/21 04/14/21 History vitamin A palmitate 10,000 unit PO DAILY 01/24/21 04/14/21 History vitamin E [Natural Vitamin E] 200 unit PO DAILY 01/24/21 04/14/21 History zinc sulfate 220 mg PO DAILY 01/24/21 04/14/21 History ropinirole 1 mg PO HS 04/14/21 04/14/21 History Allergies Allergy/AdvReac Type Severity Reaction Status Date / Time azithromycin AdvReac Redness of Verified 04/14/21 21:41 Skin gluten AdvReac Unknown Verified 01/25/21 12:53 wheat AdvReac Unknown Verified 01/25/21 12:53 Vital Signs Vital Signs - 24 hr 04/14/21 17:00 04/14/21 18:32 04/14/21 19:00 Temperature 97.6 F Pulse Rate 120 H 121 H 117
[2021-04-15] MEDS: rOPINIRole HCL 1 MG TABLET PO (20:47)
[2021-04-15] MEDS: METOPROLOL TARTRATE 25 MG TABLET 12.5 MG PO (21:00)
[2021-04-16] VITALS: PULSE 112
[2021-04-16 03:32] VITALS: PULSE 70
[2021-04-16 03:35] VITALS: RESP 22
--- NOTE | 2021-04-16 03:35 | PC.NURSE ---
METOPROLOL 12.5 MG PO GIVEN ORDERED AT 2100, PEN AND PENCIL REPAIRER INTACT, PATIENT SHORT OF BREATH WITH MINIMAL EXERTION, PATIENT ENCOURAGED TO CALL FOR ASSISTANCE TO BATHROOM, PATIENT VOICED UNDERSTANDING.
[2021-04-16 04:23] VITALS: BP 129/77; PULSE 73; RESP 20; TEMP 36.7; O2SAT 93
[2021-04-16 05:27] LABS: Hematocrit 26.9 % (35.0-42.0); Hemoglobin 8.5 g/dL (11.7-13.8); Mean Corpuscular HGB Conc 31.6 g/dL (32.0-36.0); Mean Corpuscular Hemoglobin 26.4 pg (27.0-31.0); Mean Corpuscular Volume 83.5 fL (78.0-102.0); Mean Platelet Volume 11.2 fl (9.2-11.8); Platelet Count Result 174 K/mm3 (150-420); Red Blood Count 3.22 M/mm3 (4.20-5.40); Red Cell Distribution Width 21.1 % (11.6-14.4)
[2021-04-16 05:39] LABS: Alanine Aminotransferase 659 U/L (14-59); Albumin Level 2.8 g/dL (3.4-5.0); Alkaline Phosphatase 178 U/L (46-116); Anion Gap 11 mmol/L (8-16); Aspartate Amino Transferase 398 U/L (15-37); Bilirubin,Total 0.9 mg/dL (0.00-1.00); Blood Urea Nitrogen 28 mg/dL (7-18); Calcium 7.8 mg/dL (8.5-10.1); Carbon Dioxide 24 mmol/L (21-32); Chloride 100 mmol/L (98-108); Estimated CRCL calculation 35 ml/min; Estimated Glomerular Filt Rate 41; Glucose 116 mg/dL (70-99); Osmolality Calculated 286 mOsm/kg (285-295); Potassium 4.4 mmol/L (3.5-5.1); Sodium 135 mmol/L (136-145); Total Protein 5.7 g/dL (6.4-8.2)
[2021-04-16 05:41] LABS: INR 1.6; Prothrombin Time 16.2 Seconds (9.50-12.10)
[2021-04-16 05:55] LABS: Total Cells Counted 100
[2021-04-16 05:56] LABS: Band Neutrophils Percent 2 % (0-6); Basophils Percent Manual 0 % (0-1); Eosinophils Percent Manual 1 % (1-6); Hypochromasia 1+ (NORMAL); Lymphocytes Percent Manual 6 % (18-44); Monocytes Percent Manual 5 % (3-9); Neutrophils Percent Manual 86 % (46-73); Nucleated Red Blood Cells 4 %; Platelet Estimate Adequate (Adequate); Polychromasia 2+ (NORMAL)
[2021-04-16 05:57] LABS: Anisocytosis 3+ (NORMAL); Macrocytosis 2+ (NORMAL); Microcytosis 2+ (NORMAL); Ovalocytes 1+ (NORMAL); Poikilocytosis 2+ (NORMAL)
[2021-04-16 05:58] LABS: Burr Cells 2+ (NORMAL)
[2021-04-16 06:01] LABS: NT Pro B Type Natriuretic Pept 7567 pg/mL (0-125); Thyroid Stimulating Hormone 4.62 uIU/mL (0.36-3.74)
--- NOTE | 2021-04-16 06:30 | PC.NURSE ---
Report given to [facility] Nurse Diane, patient assigned bed is room [address].
--- NOTE | 2021-04-16 07:11 | PM.DS ---
DS: Admitting Diagnosis Admitting Diagnosis CHF Exacerbation, Pneumonia, UTI DS: Discharge Diagnosis Discharge Diagnosis (1) Pneumonia: Qualifiers: Laterality: bilateral Lung location: lower lobe of lung Pneumonia type: due to unspecified organism Qualified Code(s): J18.9 - Pneumonia, unspecified organism Code(s): J18.9 - Pneumonia, unspecified organism Status: Acute Assessment and Plan: Pt was given Rocephin and Azithromycin in the ER, Pt had a local reaction to Azithromycin which caused her veins to turn red near the IV site, this is now resolved. Will stay with Rocephin and add Doxycycline, supplemental O2 as needed. Urine and blood Cx pending 04/16/2021 (2) UTI (urinary tract infection): Qualifiers: Hematuria presence: without hematuria Urinary tract infection type: acute cystitis Qualified Code(s): N30.00 - Acute cystitis without hematuria Code(s): N39.0 - Urinary tract infection, site not specified Status: Acute Assessment and Plan: Urine Cx pending, Rocephin, monitoring I&O, no symptoms 04/16/2021 (3) CHF exacerbation: Qualifiers: Heart failure type: unspecified Qualified Code(s): I50.9 - Heart failure, unspecified Code(s): I50.9 - Heart failure, unspecified Status: Acute Assessment and Plan: monitor I&O, daily weights, Lasix 40 mg daily (4) Elevated d-dimer: Code(s): R79.89 - Other specified abnormal findings of blood chemistry Status: Acute Assessment and Plan: CTA obtained: IMPRESSION: 1. No pulmonary embolus, 2. Mild pulmonary edema, 3. Moderate-sized pleural effusions, 4. Cardiomegaly, worsened from 03/29/2020, 5. Moderate-sized pericardial effusion, new from 03/29/2020 6. Interval surgical changes of the breasts with fluid collections, likely seromas, 7. Moderate volume of ascites. (5) DVT (deep venous thrombosis): Code(s): I82.409 - Acute embolism and thrombosis of unspecified deep veins of unspecified lower extremity Status: Acute Assessment and Plan: Pt takes Xarelto however her INR was 2.6, Xarelto held at this time, will monitor PT/INR (6) Hypertension: Code(s): I10 - Essential (primary) hypertension Status: Acute Assessment and Plan: continue Losartan, monitor VS, make adjustments to medications as needed 04/16/2021 (7) GERD (gastroesophageal reflux disease): Code(s): K21.9 - Gastro-esophageal reflux disease without esophagitis Status: Acute Assessment and Plan: Protonix substituted for Omeprazole that Pt takes at home (8) Anxiety: Code(s): F41.9 - Anxiety disorder, unspecified Status: Acute Assessment and Plan: continue Requip DS: Summary Time Spent with Patient Time attestation: Total time spent providing and/or coordinating discharge services: < 30 minutes DS: Data Data Completed and Pending Labs on day of discharge: Labs from last 24 hours 04/16/21 04/16/21 04/16/21 05:08 05:08 05:08 WBC RBC Hgb Hct MCV MCH MCHC RDW Plt Count MPV Immature Gran % (Auto) Neut % (Auto) Lymph % (Auto) [place] % (Auto) Eos % (Auto) Baso % (Auto) Lymph # (Auto) [place] # (Auto) Eos # (Auto) Baso # (Auto) Abs Immat Gran (auto) Absolute Neuts (auto) Absolute Nucleated RBC Total Counted Neutrophils % (Manual) Band Neutrophils % Lymphocytes % (Manual) Monocytes % (Manual) Eosinophils % (Manual) Basophils % (Manual) Nucleated RBC % Abs Neuts (Manual) Abs Lymphs (Manual) Abs Monocytes (Manual) Absolute Eos (Manual) Abs Basophils (Manual) Nucleated RBCs Platelet Estimate Polychromasia Hypochromasia Poikilocytosis Anisocytosis Microcytosis Macrocytosis Ovalocytes [place] Cells PT 16.2 H INR 1.6 Sodium 135 L Potassium 4.4 Chloride 100 Carbon Dioxide 24
--- NOTE | 2021-04-16 07:13 | PM.TDS ---
Transfer Discharge Sum: Prov Provider Date of admission: 04/14/21 19:31 Primary care physician: Micheal Burton, Admitting clinician: Freddy Sears MD DS: Admitting Diagnosis Admitting Diagnosis CHF Exacerbation, UTI, Pneumonia DS: Discharge Diagnosis Discharge Diagnosis (1) Pneumonia: Qualifiers: Laterality: bilateral Lung location: lower lobe of lung Pneumonia type: due to unspecified organism Qualified Code(s): J18.9 - Pneumonia, unspecified organism Code(s): J18.9 - Pneumonia, unspecified organism Status: Acute Assessment and Plan: Pt was given Rocephin and Azithromycin in the ER, Pt had a local reaction to Azithromycin which caused her veins to turn red near the IV site, this is now resolved. Will stay with Rocephin and add Doxycycline, supplemental O2 as needed. Urine and blood Cx pending 04/16/2021 Diane will need to continue with Abx after transfer, Still with some rales and scattered rhonchi throughout (2) UTI (urinary tract infection): Qualifiers: Hematuria presence: without hematuria Urinary tract infection type: acute cystitis Qualified Code(s): N30.00 - Acute cystitis without hematuria Code(s): N39.0 - Urinary tract infection, site not specified Status: Acute Assessment and Plan: Urine Cx pending, Rocephin, monitoring I&O, no symptoms 04/16/2021 No symptoms, continue Ab on Transfer (3) CHF exacerbation: Qualifiers: Heart failure type: unspecified Qualified Code(s): I50.9 - Heart failure, unspecified Code(s): I50.9 - Heart failure, unspecified Status: Acute Assessment and Plan: monitor I&O, daily weights, Lasix 40 mg daily 04/16/2021 Pt states breathing is better than when she first arrived at the hospital, some rales posterior bases with scattered rhonchi, BNP increased to 7567, continue Lasix, consider increasing Lasix to BID, currently 40 mg daily (4) Anemia: Code(s): D64.9 - Anemia, unspecified Status: Acute Assessment and Plan: 04/16/2021 H/H 8.5/26.9, continue to monitor, transfuse if < 7 Hgb (5) Chronic kidney disease: Code(s): N18.9 - Chronic kidney disease, unspecified Status: Acute Assessment and Plan: 04/16/2021 Cr 1.27, BUN 28, eGFR41, eCrCl 35 (6) Elevated d-dimer: Code(s): R79.89 - Other specified abnormal findings of blood chemistry Status: Acute Assessment and Plan: CTA obtained: IMPRESSION: 1. No pulmonary embolus, 2. Mild pulmonary edema, 3. Moderate-sized pleural effusions, 4. Cardiomegaly, worsened from 03/29/2020, 5. Moderate-sized pericardial effusion, new from 03/29/2020 6. Interval surgical changes of the breasts with fluid collections, likely seromas, 7. Moderate volume of ascites. 04/16/2021 INR currently 1.6, will restart Xarelto, Liver enzymes, upon arrival AST > 758, ALT 940, today AST 398 ALT 659, Alk Phos 199 today 178 (7) DVT (deep venous thrombosis): Code(s): I82.409 - Acute embolism and thrombosis of unspecified deep veins of unspecified lower extremity Status: Acute Assessment and Plan: Pt takes Xarelto however her INR was 2.6, Xarelto held at this time, will monitor PT/INR 04/16/2021 current INR 1.6 will restart Xarelto (8) Hypertension: Code(s): I10 - Essential (primary) hypertension Status: Acute Assessment and Plan: continue Losartan, monitor VS, make adjustments to medications as needed 04/16/2021 BS stable, HR usually tachy 110-120s but this AM reported at 70s monitor shows 118 (9) GERD (gastroesophageal reflux disease): Code(s): K21.9 - Gastro-esophageal reflux disease without esophagitis Status: Acute Assessment and Plan: Protonix substituted for Omeprazole that Pt takes at home (10) Anxiety: Code(s): F41.9 - Anxiety disorder, unspecified Status: Acute Assessment and Plan: continue Requip Transfer Discharge Sum: Med Medications Active
--- NOTE | 2021-04-16 07:15 | PC.NURSE ---
Notified [facility] for ALS transfer needed to [facility]. [facility] unable to transfer. [facility] notified and will transfer patient.
--- NOTE | 2021-04-16 07:55 | PC.NURSE ---
[facility] here to transport patient to [place]. Patient able to transfer herself onto stretcher. All belongings sent with patient. Family notified patient left per ambulance
[2021-04-16 08:00] VITALS: BP 130/93; PULSE 115; PULSE 116; RESP 20; TEMP 36.8; O2SAT 97
== END 2021-04-16 08:08 | disposition short-term general hospital (02) ==
LOC: CHSED 19:25 → CHS2ND 19:53
PROVIDERS: Emergency Medicine; Nurse Practitioner Family; Admitting Provider Emergency Medicine; Emergency Provider Emergency Medicine; PCP Family Medicine; Visit Provider Emergency Medicine
DX: I11.0 Hypertensive heart disease with heart failure (principal); J18.9 Pneumonia, unspecified organism; I50.9 Heart failure, unspecified; N39.0 Urinary tract infection, site not specified; I08.1 Rheumatic disorders of both mitral and tricuspid valves; E03.9 Hypothyroidism, unspecified; K21.9 Gastro-esophageal reflux disease without esophagitis; K90.0 Celiac disease; R26.89 Other abnormalities of gait and mobility; F41.9 Anxiety disorder, unspecified; Z86.718 Personal history of other venous thrombosis and embolism; Z79.01 Long term (current) use of anticoagulants
CPT/HCPCS: 36415; 71046; 71275; 80053; 81001; 82140; 83605; 83690; 83735; 83880; 84439; 84443; 84484; 85025; 85060; 85380; 85610; 85730; 86850; 86900; 86901; 87040; 87077; 87086; 87088; 87186; 93005; 93306; 96365; 96375; 96376; 99285; A9270; G0378; J0456; J0696; J1940; J7030; Q9967

== ENCOUNTER 2021-05-03 10:05 | Outpatient (CLI) | payer MEDICARE, SELFPAY ==
[2021-05-03 11:49] LABS: Alanine Aminotransferase 53 U/L (14-59); Albumin Level 3.3 g/dL (3.4-5.0); Alkaline Phosphatase 134 U/L (46-116); Anion Gap 9 mmol/L (8-16); Aspartate Amino Transferase 25 U/L (15-37); Bilirubin,Total 0.6 mg/dL (0.00-1.00); Blood Urea Nitrogen 15 mg/dL (7-18); Carbon Dioxide 32 mmol/L (21-32); Chloride 102 mmol/L (98-108); Estimated Glomerular Filt Rate 41; Glucose 131 mg/dL (70-99); NT Pro B Type Natriuretic Pept 4031 pg/mL (0-125); Osmolality Calculated 298 mOsm/kg (285-295); Potassium 3.5 mmol/L (3.5-5.1); Sodium 143 mmol/L (136-145); Thyroid Stimulating Hormone 3.82 uIU/mL (0.36-3.74); Total Protein 6.4 g/dL (6.4-8.2)
== END 2021-05-03 10:06 | disposition home or self-care (01) ==
LOC: CHSLAB 10:07
PROVIDERS: PCP Family Medicine; Visit Provider Family Medicine
DX: R79.89 Other specified abnormal findings of blood chemistry (principal); E03.9 Hypothyroidism, unspecified; I50.20 Unspecified systolic (congestive) heart failure
CPT/HCPCS: 36415; 80053; 83880; 84443

== ENCOUNTER 2021-05-11 07:42 | Outpatient (CLI) | payer MEDICARE, SELFPAY ==
--- NOTE | 2021-05-19 16:29 | WPDHOMESLEEP ---
Sleep Study - Home Unattended Date of Study: 05/11/21 <Rosy Yarbrough DO - Last Filed: 05/19/21 17:17> Ordering Provider: Jodie Hess, [facility]- <Rosy Yarbrough, DO - Last Filed: 05/19/21 17:17> Interpreting Provider: Rosy Yarbrough DO <Rosy Yarbrough, DO - Last Filed: 05/19/21 17:17> Home Sleep Study Type: Watch PAT <Rosy Yarbrough DO - Last Filed: 05/19/21 17:17> Height: 1.73 m <Rosy Yarbrough DO - Last Filed: 05/19/21 17:17> Weight: 65.771 kg <Rosy Yarbrough DO - Last Filed: 05/19/21 17:17> Body Mass Index: 22.0 <Rosy Yarbrough DO - Last Filed: 05/19/21 17:17> Neck Circumference (inches): 13 <Rosy Yarbrough DO - Last Filed: 05/19/21 17:17> [place]: 1 <Rosy Yarbrough DO - Last Filed: 05/19/21 17:17> Reason for Sleep Study The patient has known NAI and is unable to tolerate PAP. She will be undergoing evaluation for Inspire. <Rosy Yarbrough DO - Last Filed: 05/19/21 17:17> Sleep History The patient is a 75-year-old female with insomnia and NAI on PAP therapy. The patient was recently diagnosed with heart failure and had an echo on April 15, 2021 that showed a left ventricular ejection fraction of 15-20%. The patient states that she uses CPAP every night but is unable to tolerate it. She would like to be evaluated for the inspire device. The patient states that she developed sleeplessness gradually. She also has leg cramping that bothers her. She states that she never awakens from sleep short of breath. She never awakens at night with heartburn, belching or coughing. She rarely snores and never loudly enough that others complain. The patient never wakes up gasping for air. She denies any breathing problems at night. She really has heart palpitations throughout the night. She never falls asleep during the day nor while driving. She denies sleep paralysis, cataplexy, hypnopompic/hypnagogic hallucinations. she denies feeling sad or depressed but rarely has anxiety. She rarely has muscular tension but often notices parts of her body jerking. She rarely kicks throughout the night. She denies crawling and aching feelings in her legs but does experience charley horses. She rarely grinds her teeth at night and denies morning jaw pain. She is not bothered by pain during the day nor awakened by pain throughout the night. She rarely wakes up feeling stiff in the morning with sore and achy muscles. She goes to bed at 10:30 p.m. every day. She states that she sleeps for 4-5 hours. The patient did not list how many times she wakes up per night nor how long it takes her attic go back to sleep. She states that she mainly wakes up to urinate. Way she can fall back asleep, she will pray or go eat cereal. She wakes up at 7:38 a.m. every day. She currently lives with her and is retired. She denies any caffeinated beverages 2 hours prior to bedtime. She does not engage in physical activity prior to bedtime. She will repeat prior to falling asleep. She really watches television before going to bed. She will lay down on the couch in the afternoon but will fall sleep. She denies tobacco alcohol recreational drug use. She does have 1-2 cups of caffeinated beverage in the morning. <Rosy Yarbrough DO - Last Filed: 05/19/21 17:17> [facility] Past Medical History Medical History: Medical History Anxiety Celiac disease DVT (deep venous thrombosis) Gait instability GERD (gastroesophageal reflux disease) Hypertension Hypothyroidism Portal vein thrombosis <Rosy Yarbrough DO - Last Filed: 05/19/21 17:17> Surgical History Surgical History: Surgical History H/O shoulder surgery History of appendectomy History of <Rosy Yarbrough, - Last Filed: 10
[2021-05-19 17:00] VITALS: BMI 22.0
== END 2021-05-16 13:30 | disposition home or self-care (01) ==
LOC: ANHCSM 07:43
PROVIDERS: PCP Family Medicine; Visit Provider Nurse Practitioner
DX: G47.33 Obstructive sleep apnea (adult) (pediatric) (principal); R06.3 Periodic breathing
CPT/HCPCS: 95800

== ENCOUNTER 2021-08-11 14:21 | Outpatient (CLI) | payer MEDICARE, SELFPAY ==
[2021-08-11 14:37] LABS: Hematocrit 37.3 % (35.0-42.0); Hemoglobin 12.3 g/dL (11.7-13.8); Mean Corpuscular Hemoglobin 33.8 pg (27.0-31.0); Mean Corpuscular Volume 102.5 fL (78.0-102.0); Mean Platelet Volume 11.5 fl (9.2-11.8); Platelet Count Result 165 K/mm3 (150-420); Red Blood Count 3.64 M/mm3 (4.20-5.40); White Blood Count 8.3 K/mm3 (4.8-10.8)
[2021-08-11 15:08] LABS: Anion Gap 6 mmol/L (8-16); Blood Urea Nitrogen 24 mg/dL (7-18); Carbon Dioxide 33 mmol/L (21-32); Chloride 103 mmol/L (98-108); Estimated Glomerular Filt Rate 43; Glucose 91 mg/dL (70-99); Osmolality Calculated 298 mOsm/kg (285-295); Potassium 4.6 mmol/L (3.5-5.1); Sodium 142 mmol/L (136-145)
[2021-08-11 15:21] LABS: Band Neutrophils Percent 0 % (0-6); Basophils Percent Manual 0 % (0-1); Eosinophils Absolute Manual 2.73 K/mm3 (0.02-0.5); Eosinophils Percent Manual 33 % (1-6); Lymphocytes Absolute Manual 1.57 K/mm3 (1.1-4.5); Lymphocytes Percent Manual 19 % (18-44); Monocytes Absolute Manual 0.49 K/mm3 (0.1-0.90); Monocytes Percent Manual 6 % (3-9); Neutrophils Absolute Manual 3.48 K/mm3 (1.7-7.2); Neutrophils Percent Manual 42 % (46-73); Total Cells Counted 100
[2021-08-11 15:22] LABS: Platelet Estimate Adequate (Adequate)
== END 2021-08-11 14:22 | disposition home or self-care (01) ==
LOC: CHSLAB 14:25
PROVIDERS: PCP Family Medicine
DX: I25.5 Ischemic cardiomyopathy (principal); I25.10 Atherosclerotic heart disease of native coronary artery without angina pectoris; Z01.818 Encounter for other preprocedural examination
CPT/HCPCS: 36415; 80048; 85025

== ENCOUNTER 2021-08-31 14:22 | Outpatient (CLI) | payer MEDICARE, SELFPAY ==
[2021-08-31 15:09] LABS: Hematocrit 38.4 % (35.0-42.0); Hemoglobin 12.4 g/dL (11.7-13.8); Mean Corpuscular HGB Conc 32.3 g/dL (32.0-36.0); Mean Corpuscular Volume 105.2 fL (78.0-102.0); Mean Platelet Volume 11.6 fl (9.2-11.8); Platelet Count Result 204 K/mm3 (150-420); Red Blood Count 3.65 M/mm3 (4.20-5.40); Red Cell Distribution Width 15.5 % (11.6-14.4); White Blood Count 10.3 K/mm3 (4.8-10.8)
[2021-08-31 16:30] LABS: Anion Gap 9 mmol/L (8-16); Blood Urea Nitrogen 30 mg/dL (7-18); Carbon Dioxide 31 mmol/L (21-32); Chloride 99 mmol/L (98-108); Estimated Glomerular Filt Rate 33; Glucose 112 mg/dL (70-99); Osmolality Calculated 295 mOsm/kg (285-295); Potassium 4.5 mmol/L (3.5-5.1); Sodium 139 mmol/L (136-145)
== END 2021-08-31 14:23 | disposition home or self-care (01) ==
LOC: CHSLAB 14:27
PROVIDERS: PCP Family Medicine
DX: I25.118 Atherosclerotic heart disease of native coronary artery with other forms of angina pectoris (principal)
CPT/HCPCS: 36415; 80048; 85027

== ENCOUNTER 2021-09-21 11:58 | Outpatient (CLI) | payer MEDICARE, SELFPAY ==
--- NOTE | ~2021-09-21 | XR_ITS ---
XR chest 2V DATE: 09/21/2021 12:22 INDICATION: Shortness of breath. Bronchiectasis TECHNIQUE: 2 views COMPARISON: 04/14/2021 CTA chest 04/14/2021 chest FINDINGS: There is bilateral hyperinflation. No pulmonary infiltrate or consolidation, pulmonary vas cular congestion or pleural effusion or pneumothorax. There is mild aortic unfolding, as well as aortic calcification. Normal heart size. Coronary artery stent. Diffuse osteopenia. IMPRESSION: Bilateral hyperinflation No active cardiopulmonary disease Osteopenia Reviewed, dictated and finalized at location A. ING SUBCONTRACTOR
== END 2021-09-21 11:59 | disposition home or self-care (01) ==
LOC: CHSIMG 12:02
PROVIDERS: PCP Family Medicine; Visit Provider Nurse Practitioner
DX: J47.1 Bronchiectasis with (acute) exacerbation (principal)
CPT/HCPCS: 71046

== ENCOUNTER 2021-09-23 15:32 | Observation (INO) | payer MEDICARE, SELFPAY ==
--- NOTE | ~2021-09-23 | XR_ITS ---
EXAMINATION: XR chest 1V portable INDICATION: Cough TECHNIQUE: Portable AP chest at 0715 hours COMPARISON: 09/23/2021 FINDINGS: The lungs are free of acute opacities. There is no pleural effusion or pneumothorax. The he art size is normal. IMPRESSION: 1. No acute cardiopulmonary abnormality. Reviewed, dictated and finalized at location A. WELT SEWING MACHINE OPERATOR
--- NOTE | ~2021-09-23 | XR_ITS ---
XR chest 1V portable DATE: 09/23/2021 16:31 INDICATION: Cough for 2 months. 2 stent placements 2 months ago. TECHNIQUE: Portable AP chest on September 23, 2021 at 1630 hours COMPARISON: September 21, 2021 2 view chest FINDINGS: Heart size is within normal range. There is mild aortic unfolding. Moderate bilateral hyperinflation. No pulmonary infiltrate or consolidation, pleural effusion or pulm onary vascular congestion or pneumothorax. Diffuse osteopenia. IMPRESSION: Moderate hyperinflation; no active cardiopulmonary disease Osteopenia Reviewed, dictated and finalized at location A. E GROOVER
[2021-09-23 15:54] VITALS: BP 104/60; PULSE 82; RESP 16; TEMP 36.3; O2SAT 100
--- NOTE | 2021-09-23 15:59 | ED.WEAKNESS ---
HPI - Weakness General Chief complaint: Weakness Stated complaint: low blood pressure, cough Time Seen by Provider: 09/23/21 15:59 History of Present Illness HPI Narrative: 75-year-old female patient arrives to ER ambulatory with complaints of having weakness for the last several days. Patient states that she has had a couple of falls in the past week. She also states that she has noticed her blood pressure to be low . Patient denies any loss of consciousness or feeling faint. Patient also states that she has had diarrhea for couple of days. Patient denies any blood or black stools. She denies any nausea or vomiting. She denies any chest pain. She states that she has had wet cough for almost a month. Patient is not a smoker. Denies any associated fever or chills She states that she is not vaccinated for COVID. She has had an exposure to her who was diagnosed with COVID over a month ago. No recent expo sure however. Patient is not a smoker. Patient states that she has had 2 stents placed in on August 18 at [facility] and she is scheduled for a 3rd Stent however they have held back because of her chronic cough. Related Data Home Medications Medication Instructions Recorded Confirmed losartan 25 mg PO DAILY 03/13/20 09/23/21 sertraline 100 mg PO DAILY 03/13/20 09/23/21 oxybutynin chloride 10 mg PO DAILY 06/22/20 09/23/21 vitamin A palmitate 10,000 unit PO DAILY 01/24/21 09/23/21 vitamin E 200 unit PO DAILY 01/24/21 09/23/21 atorvastatin 40 mg PO DAILY 09/23/21 09/23/21 carvedilol 12.5 mg PO DAILY 09/23/21 09/23/21 clopidogrel 75 mg PO DAILY 09/23/21 09/23/21 furosemide 40 mg PO BID 09/23/21 09/23/21 pantoprazole 40 mg PO DAILY 09/23/21 09/23/21 pilocarpine HCl 5 mg PO TID 09/23/21 09/23/21 rivaroxaban [Xarelto] 10 mg PO DAILY 09/23/21 09/23/21 ropinirole 0.5 mg PO DAILY 09/23/21 09/23/21 Allergies Allergy/AdvReac Type Severity Reaction Status Date / Time azithromycin AdvReac Redness of Verified 09/23/21 16:01 Skin gluten AdvReac Unknown Verified 09/23/21 16:01 wheat AdvReac Unknown Verified 09/23/21 16:01 Review of Systems Review of Systems: All systems reviewed & are unremarkable except as noted in HPI and below Constitutional: Constitutional: Reports no additional constitutional complaints, Denies chills, Denies fatigue, Denies fever(s) and Reports weakness Eyes: Eyes: Reports as per HPI, Reports no additional eye complaints and Denies change in vision ENT: Reports system reviewed and no additional complaints, except as documented, Denies dizziness, Denies epistaxis, Denies nasal congestion and Denies sore throat Cardiovascular: Cardiovascular: Reports no additional cardiovascular complaints, Denies chest pain, Denies rapid heart rate and Denies radiating jaw, neck or arm pain Respiratory: Respiratory: Reports no additional respiratory complaints, Denies chest congestion, Reports cough, Reports dyspnea and Denies wheezing Gastrointestinal: Gastrointestinal: Reports no additional gastrointestinal complaints, Denies abdominal pain, Denies bloating, Denies constipation, Denies heartburn, Reports diarrhea, Denies nausea and Denies vomiting Genitourinary: Genitourinary: Reports no additional female genitourinary complaints and Denies hematuria Musculoskeletal: Musculoskeletal: Reports no additional musculoskeletal complaints, Denies back pain, Denies myalgias, Denies arthralgias, Denies joint swelling and Denies muscle cramps Integumentary/Breasts: Skin/Breast: Reports system reviewed and no additional complaints, except as docu Neurologic: Reports system reviewed and no additional complaints, except as documented Psychiatric: Psychiatric: Reports no additional psychiatric complaints Endocrine: Endocrine: Reports no additional endocrine complaints Hematologic/Lymphatic: Hematologic/Lymphatic: Reports no additional hematologic/lymphatic complaints Allergic/Immunologic: Allergic/Immunologic: Reports n
[2021-09-23] MEDS: SODIUM CHLORIDE 0.9% IV 1,000 ML 999 ML IV CONT (16:24)
[2021-09-23 16:46] LABS: Hematocrit 27.5 % (35.0-42.0); Mean Corpuscular HGB Conc 32.7 g/dL (32.0-36.0); Mean Corpuscular Hemoglobin 34.9 pg (27.0-31.0); Mean Corpuscular Volume 106.6 fL (78.0-102.0); Mean Platelet Volume 10.2 fl (9.2-11.8); Platelet Count Result 230 K/mm3 (150-420); Red Blood Count 2.58 M/mm3 (4.20-5.40); Red Cell Distribution Width 14.8 % (11.6-14.4)
[2021-09-23 16:58] LABS: Band Neutrophils Percent 0 % (0-6); Basophils Percent Manual 0 % (0-1); Eosinophils Absolute Manual 1.28 K/mm3 (0.02-0.5); Eosinophils Percent Manual 16 % (1-6); Lymphocytes Absolute Manual 1.92 K/mm3 (1.1-4.5); Lymphocytes Percent Manual 24 % (18-44); Monocytes Absolute Manual 0.32 K/mm3 (0.1-0.90); Monocytes Percent Manual 4 % (3-9); Neutrophils Absolute Manual 4.48 K/mm3 (1.7-7.2); Neutrophils Percent Manual 56 % (46-73); Platelet Estimate Adequate (Adequate); Total Cells Counted 100
[2021-09-23 17:01] LABS: Alanine Aminotransferase 18 U/L (14-59); Albumin Level 2.8 g/dL (3.4-5.0); Alkaline Phosphatase 79 U/L (46-116); Anion Gap 10 mmol/L (8-16); Aspartate Amino Transferase 15 U/L (15-37); Bilirubin,Total 0.4 mg/dL (0.00-1.00); Blood Urea Nitrogen 20 mg/dL (7-18); Calcium 8.2 mg/dL (8.5-10.1); Carbon Dioxide 28 mmol/L (21-32); Chloride 98 mmol/L (98-108); Estimated CRCL calculation 21 ml/min; Estimated Glomerular Filt Rate 22; Glucose 105 mg/dL (70-99); Magnesium 2.7 mg/dL (1.8-2.4); Osmolality Calculated 284 mOsm/kg (285-295); Potassium 4.7 mmol/L (3.5-5.1); Sodium 136 mmol/L (136-145); Total Protein 6.1 g/dL (6.4-8.2)
[2021-09-23 17:24] LABS: SARS-CoV-2 RNA PCR Negative (Negative)
--- NOTE | 2021-09-23 17:31 | PC.NURSE ---
orthostatic vitals laying 118/60 54hr, sitting 107/58 56hr, standing 83/52 74hr. erp made aware.
[2021-09-23 17:34] VITALS: RESP 16; O2SAT 98
[2021-09-23 17:38] VITALS: BP 107/58; BP 118/60; BP 83/52; PULSE 54; PULSE 56; PULSE 74
[2021-09-23 17:45] LABS: Occult Blood Negative (Negative)
[2021-09-23] MEDS: SODIUM CHLORIDE 0.9% IV 1,000 ML 150 ML IV CONT (17:56)
[2021-09-23 18:08] LABS: NT Pro B Type Natriuretic Pept 976 pg/mL (0-125)
[2021-09-23 20:00] VITALS: BP 113/53; PULSE 79; RESP 20; TEMP 36.1; O2SAT 99
[2021-09-23 20:20] VITALS: BP 116/47; PULSE 60; RESP 19; TEMP 36.3; O2SAT 98
[2021-09-23] MEDS: BENZONATATE 100 MG CAPSULE 200 MG PO (21:38)
[2021-09-23 22:19] VITALS: BP 113/53
--- NOTE | 2021-09-23 22:23 | PC.NURSE ---
Patient admitted to room 227 from the ER, is alert, oriented, denies pain, oriented to surroundings and call light.
[2021-09-23 22:26] VITALS: BMI 23.9
[2021-09-23] MEDS: diphenhydrAMINE HCl INJ 50 MG/ML VIAL 25 MG IV PUSH (22:38)
[2021-09-24] VITALS: BP 109/55; PULSE 71; RESP 20; TEMP 36.1; O2SAT 96
[2021-09-24] MEDS: LORazepam INJ (*CRX) 2 MG/ML VIAL 0.5 MG IV PUSH (02:10)
--- NOTE | 2021-09-24 02:10 | PC.NURSE ---
Pt given 0.5 mg Ativan IVP to relieve restlessness.
[2021-09-24 04:00] VITALS: BP 109/55; PULSE 88; TEMP 36.6; O2SAT 95
[2021-09-24 05:31] LABS: Hematocrit 28.7 % (35.0-42.0); Mean Corpuscular HGB Conc 31.4 g/dL (32.0-36.0); Mean Corpuscular Hemoglobin 34.4 pg (27.0-31.0); Mean Corpuscular Volume 109.5 fL (78.0-102.0); Mean Platelet Volume 10.8 fl (9.2-11.8); Platelet Count Result 227 K/mm3 (150-420); Red Blood Count 2.62 M/mm3 (4.20-5.40); Red Cell Distribution Width 14.8 % (11.6-14.4)
[2021-09-24 06:14] LABS: Alanine Aminotransferase 15 U/L (14-59); Albumin Level 2.7 g/dL (3.4-5.0); Alkaline Phosphatase 79 U/L (46-116); Anion Gap 10 mmol/L (8-16); Aspartate Amino Transferase 18 U/L (15-37); Bilirubin,Total 0.4 mg/dL (0.00-1.00); Blood Urea Nitrogen 17 mg/dL (7-18); Calcium 8.7 mg/dL (8.5-10.1); Carbon Dioxide 23 mmol/L (21-32); Chloride 107 mmol/L (98-108); Estimated CRCL calculation 27 ml/min; Estimated Glomerular Filt Rate 31; Glucose 96 mg/dL (70-99); Magnesium 2.6 mg/dL (1.8-2.4); Osmolality Calculated 291 mOsm/kg (285-295); Potassium 4.4 mmol/L (3.5-5.1); Sodium 140 mmol/L (136-145)
[2021-09-24 08:00] VITALS: BP 130/60; BP 137/74; PULSE 65; RESP 14; TEMP 36.1; O2SAT 98
[2021-09-24] MEDS: SERTRALINE HCL 50 MG TABLET 100 MG PO (09:05)
[2021-09-24] MEDS: rOPINIRole HCL 0.5 MG TABLET PO (09:08)
[2021-09-24] MEDS: PANTOPRAZOLE 40 MG TABLET PO (09:08)
[2021-09-24] MEDS: CLOPIDOGREL BISULFATE 75 MG TABLET PO (09:09)
[2021-09-24] MEDS: ATORVASTATIN 40 MG TABLET PO (09:10)
[2021-09-24] MEDS: BENZONATATE 100 MG CAPSULE 200 MG PO (09:17)
--- NOTE | 2021-09-24 10:29 | PM.SD2 ---
Same Day Admit/Disch: HPI History of Present Illness Chief complaint: low blood pressure, cough Narrative: Diane Silva is a 75 year old female that presented to our emergency department with complaints of weakness and hypotension and a chronic cough. Patient has a past medical history of, anxiety, celiac disease, CAD, DVT, gait instability, GERD, hypertension, COPD, hyper thyroidism, portal vein thrombosis and congestive heart failure. Approximately 2 weeks ago she started to feel dizziness with a couple of falls. After her noticed that she had failed several times he informed her that she should start taking her blood pressure readings. Patient took her blood pressure reading for approximately 1 week. I did witness her documented blood pressure readings several of them were in the 110's/ 60's two of the blood pressure readings were in the 80's/50's. Also noticed that low blood pressure readings were afternoon. Patient notes that she takes her blood pressure medication in the a.m. patient notes that she fell several times but she did not experience a syncope episode she also notes that when she gets up in the morning she slowly stands to prevent dizziness. Patient does see a ecological modeler who manages her blood pressure medication. While in the ED orthostatics blood pressure readings were completed [id number], sitting 107/58 and [id number]. Patient did receive 1 L IV fluid in the ED once her IV fluid was discontinued her blood pressure dropped again. Patient was admitted to our floor for IV hydration this day of discharge patient blood pressure is 130/60. On day admission patient's WBCs 8.0, hemoglobin 9.0, hematocrit 27.5, platelets 230, sodium 136, potassium 4.7, BUN 20, creatinine 2.18, glucose 105, lactic acid 2.0, magnesium 2.7, AST 15, ALT 18, BNP 976, occult blood negative Covid negative, chest x-ray indicates moderate hyperinflation. Patient will discharge home with midodrine . She was instructed to take Coreg as needed when blood pressure is 140/90 her losartan was discontinued she was also instructed to take her blood pressure reading every day at the same time and given midodrine for hypotension. Patient still complains of a chronic cough and notes that she occasionally gets dizzy. She has been ordered outpatient PT as well. [facility] Past Medical History Medical History (Updated 09/24/21 @ 11:00 by MAT Melendez) Anxiety Celiac disease Coronary artery disease DVT (deep venous thrombosis) Gait instability GERD (gastroesophageal reflux disease) Hypertension Hypothyroidism Portal vein thrombosis Surgical History Surgical History (Updated 09/23/21 @ 16:34 by Ashley Griffiths MD) H/O shoulder surgery History of appendectomy History of History of coronary artery stent placement Family History Family History Father Cerebrovascular accident Social History Social History Smoking status: Never smoker Second hand tobacco smoke exposure: No Alcohol intake: never Drinks per week: 1 Substance use: never Substance use type: does not use Gender identity (if verbalized by the patient): Female Sexual Orientation (if Verbalized by the Patient): Straight or Heterosexual Spiritual care concerns: No Same Day Admit/Disch: Med Pre-admit Medications Home Medications Medication Instructions Recorded Confirmed Type sertraline 100 mg PO DAILY 03/13/20 09/23/21 History oxybutynin chloride 10 mg PO DAILY 06/22/20 09/23/21 History vitamin A palmitate 10,000 unit PO DAILY 01/24/21 09/23/21 History vitamin E 200 unit PO DAILY 01/24/21 09/23/21 History atorvastatin 40 mg PO DAILY 09/23/21 09/23/21 History clonazepam 1 mg BYMOUTH DAILY 09/23/21 09/23/21 History clopidogrel 75 mg PO DAILY 09/23/21 09/23/21 History furosemide 40 mg PO BID 09/23/21 09/23/21 History pantoprazole 40 mg PO DAILY
[2021-09-24 12:00] VITALS: PULSE 65
--- NOTE | 2021-09-24 12:25 | PC.NURSE ---
Pt discharged to home with VSS. Discharge instructions given to pt who verbalized understanding. Medication changes were reviewed with pt and follow up doctor appointments. Pt taken to the family car by RN via WC.
--- NOTE | 2021-09-26 16:16 | PC.NURSE ---
Pt states she received and understood her discharge instructions. Pt states everyone was so nice to me, I really appreciate it .
== END 2021-09-24 12:15 | disposition home or self-care (01) ==
LOC: CHSED 19:19 → CHS2ND 19:35
PROVIDERS: Nurse Practitioner; Admitting Provider Emergency Medicine; Emergency Provider Emergency Medicine; PCP Family Medicine; Visit Provider Emergency Medicine
DX: I95.9 Hypotension, unspecified (principal); E86.0 Dehydration; I13.0 Hypertensive heart and chronic kidney disease with heart failure and stage 1 through stage 4 chronic kidney disease, or unspecified chronic kidney disease; N18.30 Chronic kidney disease, stage 3 unspecified; I50.9 Heart failure, unspecified; I25.10 Atherosclerotic heart disease of native coronary artery without angina pectoris; J44.9 Chronic obstructive pulmonary disease, unspecified; N17.9 Acute kidney failure, unspecified; D64.9 Anemia, unspecified; K90.0 Celiac disease; K21.9 Gastro-esophageal reflux disease without esophagitis; E03.9 Hypothyroidism, unspecified; R05.3 Chronic cough; R26.81 Unsteadiness on feet; F41.9 Anxiety disorder, unspecified; Z86.718 Personal history of other venous thrombosis and embolism; Z20.822 Contact with and (suspected) exposure to COVID-19; Z79.01 Long term (current) use of anticoagulants; Z95.5 Presence of coronary angioplasty implant and graft
CPT/HCPCS: 36415; 71045; 80053; 82272; 83605; 83735; 83880; 85025; 85027; 86850; 86900; 86901; 96360; 96361; 96374; 96375; 97161; 99285; A9270; C9803; G0378; J1200; J2060; J7030; U0003; U0005

== ENCOUNTER 2021-10-14 11:49 | Outpatient (CLI) | payer MEDICARE, SELFPAY ==
[2021-10-14 12:13] LABS: Hematocrit 35.6 % (35.0-42.0); Hemoglobin 11.3 g/dL (11.7-13.8); Mean Corpuscular HGB Conc 31.7 g/dL (32.0-36.0); Mean Corpuscular Hemoglobin 32.6 pg (27.0-31.0); Mean Corpuscular Volume 102.6 fL (78.0-102.0); Mean Platelet Volume 11.2 fl (9.2-11.8); Platelet Count Result 252 K/mm3 (150-420); Red Blood Count 3.47 M/mm3 (4.20-5.40); Red Cell Distribution Width 14.4 % (11.6-14.4)
[2021-10-14 12:29] LABS: Anion Gap 11 mmol/L (8-16); Blood Urea Nitrogen 24 mg/dL (7-18); Calcium 9.1 mg/dL (8.5-10.1); Carbon Dioxide 29 mmol/L (21-32); Chloride 105 mmol/L (98-108); Estimated Glomerular Filt Rate 37; Glucose 113 mg/dL (70-99); Osmolality Calculated 305 mOsm/kg (285-295); Potassium 4.2 mmol/L (3.5-5.1); Sodium 145 mmol/L (136-145)
[2021-10-14 12:46] LABS: Band Neutrophils Percent 0 % (0-6); Basophils Percent Manual 0 % (0-1); Eosinophils Absolute Manual 0.77 K/mm3 (0.02-0.5); Eosinophils Percent Manual 11 % (1-6); Lymphocytes Absolute Manual 1.68 K/mm3 (1.1-4.5); Lymphocytes Percent Manual 24 % (18-44); Monocytes Absolute Manual 0.63 K/mm3 (0.1-0.90); Monocytes Percent Manual 9 % (3-9); Neutrophils Absolute Manual 3.92 K/mm3 (1.7-7.2); Neutrophils Percent Manual 56 % (46-73); Total Cells Counted 100
[2021-10-14 12:47] LABS: Platelet Estimate Adequate (Adequate)
== END 2021-10-14 11:50 | disposition home or self-care (01) ==
LOC: CHSLAB 11:53
PROVIDERS: PCP Family Medicine; Visit Provider Internal Medicine Interventional Cardiology
DX: I25.10 Atherosclerotic heart disease of native coronary artery without angina pectoris (principal); Z01.818 Encounter for other preprocedural examination
CPT/HCPCS: 36415; 80048; 85025

== ENCOUNTER 2021-10-28 10:24 | Outpatient (CLI) | payer MEDICARE, SELFPAY ==
[2021-10-28 10:38] LABS: Hematocrit 35.9 % (35.0-42.0); Hemoglobin 11.4 g/dL (11.7-13.8); Mean Corpuscular HGB Conc 31.8 g/dL (32.0-36.0); Mean Corpuscular Hemoglobin 32.5 pg (27.0-31.0); Mean Corpuscular Volume 102.3 fL (78.0-102.0); Mean Platelet Volume 10.8 fl (9.2-11.8); Platelet Count Result 223 K/mm3 (150-420); Red Blood Count 3.51 M/mm3 (4.20-5.40); Red Cell Distribution Width 16.2 % (11.6-14.4)
[2021-10-28 11:05] LABS: Band Neutrophils Percent 0 % (0-6); Basophils Percent Manual 0 % (0-1); Eosinophils Absolute Manual 0.98 K/mm3 (0.02-0.5); Eosinophils Percent Manual 14 % (1-6); Lymphocytes Absolute Manual 1.75 K/mm3 (1.1-4.5); Lymphocytes Percent Manual 25 % (18-44); Monocytes Absolute Manual 0.56 K/mm3 (0.1-0.90); Monocytes Percent Manual 8 % (3-9); Neutrophils Absolute Manual 3.71 K/mm3 (1.7-7.2); Neutrophils Percent Manual 53 % (46-73); Platelet Estimate Adequate (Adequate); Total Cells Counted 100
[2021-10-28 11:37] LABS: Anion Gap 5 mmol/L (8-16); Blood Urea Nitrogen 25 mg/dL (7-18); Calcium 8.8 mg/dL (8.5-10.1); Carbon Dioxide 32 mmol/L (21-32); Chloride 105 mmol/L (98-108); Estimated Glomerular Filt Rate 40; Glucose 71 mg/dL (70-99); Osmolality Calculated 296 mOsm/kg (285-295); Potassium 3.8 mmol/L (3.5-5.1); Sodium 142 mmol/L (136-145)
== END 2021-10-28 10:25 | disposition home or self-care (01) ==
LOC: CHSLAB 10:26
PROVIDERS: PCP Family Medicine; Visit Provider Internal Medicine Interventional Cardiology
DX: I25.10 Atherosclerotic heart disease of native coronary artery without angina pectoris (principal)
CPT/HCPCS: 36415; 80048; 85025

== ENCOUNTER 2022-02-06 09:35 | Outpatient (CLI) | payer MEDICARE, SELFPAY ==
--- NOTE | ~2022-02-06 | CT_ITS ---
EXAMINATION: CT chest high resolution wo wa DATE: 02/06/2022 10:07 INDICATION: Cough, bronchiectasis TECHNIQUE: Computed tomography (CT) of the chest was performed without intravenous contrast. The dose -length product (DLP) was 176.02 mGy-cm. Automated exposure control and iterative reconstruction tech [employer] were employed. COMPARISON: 04/14/2021 FINDINGS: Stable pulmonary nodules, measuring up to 5 mm in the right middle lobe, are consistent wit h old granulomatous disease. The lungs are free of acute opacities. No pleural effusion or pneumothor ax. There is scarring in the lung apices. There is mild bronchiectasis of the lower lobes, likely rel ated to prior infection. The heart size is normal. There is a small pericardial effusion. No patholog ically enlarged thoracic lymph nodes are identified. There is a small sliding hiatal hernia. There is severe atrophy of the right kidney. There is mild thoracic spondylosis. There is a small posterior d iaphragmatic hernia on the right containing fat. IMPRESSION: 1. Mild bronchiectasis of the lower lobes, likely related to prior infection. Reviewed, dictated and finalized at location A.
== END 2022-02-06 09:36 | disposition home or self-care (01) ==
PROVIDERS: PCP Family Medicine; Visit Provider Nurse Practitioner
DX: J47.9 Bronchiectasis, uncomplicated (principal)
CPT/HCPCS: 71250

== ENCOUNTER 2022-03-01 08:48 | Outpatient (CLI) | payer MEDICARE, SELFPAY ==
[2022-03-01 09:29] LABS: Glucose Fasting 109 mg/dL (70-99)
[2022-03-01 10:07] LABS: Folic Acid 5.9 ng/mL (8.6->20); Vitamin B12 913 pg/mL (193-986)
[2022-03-01 10:11] LABS: Thyroid Stimulating Hormone Reflex 4.69 u/IU/mL (0.36-3.74)
[2022-03-01 10:30] LABS: Glucose 1 Hour 212 mg/dL (<180)
[2022-03-01 10:33] LABS: Free T4 Free Thyroxine Reflex 1.07 ng/dL (0.76-1.46)
[2022-03-01 11:59] LABS: Glucose 2 Hour 76 mg/dL (<155)
[2022-03-05 18:58] LABS: Methylmalonic Acid 176 nmol/L (87-318)
== END 2022-03-01 08:49 | disposition home or self-care (01) ==
LOC: CHSLAB 08:51
PROVIDERS: PCP Family Medicine
DX: G60.3 Idiopathic progressive neuropathy (principal); Z79.899 Other long term (current) drug therapy
CPT/HCPCS: 36415; 82607; 82746; 82951; 83921; 84439; 84443; 86334

== ENCOUNTER 2022-03-29 12:09 | Outpatient (CLI) | payer MEDICARE, SELFPAY ==
[2022-03-29 12:26] LABS: Hemoglobin 10.6 g/dL (11.7-13.8); Mean Corpuscular HGB Conc 31.2 g/dL (32.0-36.0); Mean Corpuscular Hemoglobin 28.6 pg (27.0-31.0); Mean Corpuscular Volume 91.6 fL (78.0-102.0); Platelet Count Result 230 K/mm3 (150-420); Red Blood Count 3.71 M/mm3 (4.20-5.40); Red Cell Distribution Width 17.1 % (11.6-14.4); White Blood Count 6.7 K/mm3 (4.8-10.8)
[2022-03-29 13:02] LABS: Rheumatoid Factor Screen Negative (Negative)
[2022-03-29 13:19] LABS: Alanine Aminotransferase 18 U/L (14-59); Albumin Level 3.7 g/dL (3.4-5.0); Alkaline Phosphatase 105 U/L (46-116); Anion Gap 6 mmol/L (8-16); Aspartate Amino Transferase 21 U/L (15-37); Bilirubin,Total 0.6 mg/dL (0.00-1.00); Blood Urea Nitrogen 20 mg/dL (7-18); Calcium 8.9 mg/dL (8.5-10.1); Carbon Dioxide 29 mmol/L (21-32); Chloride 104 mmol/L (98-108); Cholesterol 151 mg/dL (0-200); Estimated Glomerular Filt Rate 38; Ferritin 14 ng/mL (8-252); Glucose 94 mg/dL (70-99); HDL Direct 54 mg/dL (40-60); Iron 37 ug/dL (50-170); LDL Cholesterol Calculated 80 mg/dL (<130); Osmolality Calculated 290 mOsm/kg (285-295); Percent Iron Saturation 8 % (12-57); Sodium 139 mmol/L (136-145); Triglycerides 83 mg/dL (0-150)
[2022-03-29 13:42] LABS: Thyroid Stimulating Hormone Reflex 1.75 u/IU/mL (0.36-3.74)
[2022-04-04 10:30] LABS: ANA Cascade Screen Negative (Negative)
== END 2022-03-29 12:10 | disposition home or self-care (01) ==
LOC: CHSLAB 12:11
PROVIDERS: PCP Family Medicine; Visit Provider Family Medicine
DX: I25.10 Atherosclerotic heart disease of native coronary artery without angina pectoris (principal); I10 Essential (primary) hypertension; E11.9 Type 2 diabetes mellitus without complications; E03.9 Hypothyroidism, unspecified
CPT/HCPCS: 36415; 80053; 80061; 82728; 83540; 83550; 84443; 85027; 86038; 86430

== ENCOUNTER 2022-04-11 12:59 | Outpatient (CLI) | payer MEDICARE, SELFPAY ==
[2022-04-11 13:17] LABS: Occult Blood Negative (Negative)
== END 2022-04-11 13:00 | disposition home or self-care (01) ==
LOC: CHSLAB 13:00
PROVIDERS: PCP Family Medicine; Visit Provider Family Medicine
DX: D64.9 Anemia, unspecified (principal)
CPT/HCPCS: 82272

== ENCOUNTER 2022-05-02 09:29 | Outpatient (CLI) | payer MEDICARE, SELFPAY ==
[2022-05-02 09:45] VITALS: BMI 24.4
[2022-05-02 09:47] VITALS: BP 152/59; PULSE 72; RESP 14; TEMP 36.6; O2SAT 99
[2022-05-02] MEDS: ZOLEDRONIC ACID 5 MG/100 ML 100 ML 400 MG IVPB (09:50)
--- NOTE | 2022-05-02 10:19 | PC.NURSE ---
Patient here for IV Reclast infusion. Education given. All concerns answered. IV Reclast infusion administered. See MAR. Tolerated well. Safe exit of hospital.
== END 2022-05-02 09:30 | disposition home or self-care (01) ==
LOC: CHSTREATRM 09:34
PROVIDERS: PCP Family Medicine; Visit Provider Family Medicine
DX: M81.0 Age-related osteoporosis without current pathological fracture (principal)
CPT/HCPCS: 96374; J3489

== ENCOUNTER 2022-06-16 10:25 | Outpatient (CLI) | payer MEDICARE, SELFPAY ==
--- NOTE | 2022-06-23 16:50 | WPDPFTINT ---
PFT Procedure Performed PFT Procedure Performed Spirometry with Pre/Post Bronchodilator Plethysmography (Lung Vol) Diffusing Cap (DLCO) Flow Vol Loop PFT Interpretation DOS: 06/16/2022 REQUESTING: Jodie Hess [facility] REASON FOR TESTING: Cough PULMONARY FUNCTION TESTS Spirometry: The pre-bronchodilator FEV1 is 2.06 L, 86% predicted, normal. Pre-bronchodilator FVC is 3.15 L, 103% predicted, normal. FEV1:FVC is 65%, decreased, consistent with airflow obstruction. After bronchodilator the FEV1 increases to 90%, 4% increase non statistically significant. The FVC decreases by 2%, insignificant change. The FEF 25-75% is 0.91 L, 52% predicted which is decreased. This increases by 27%, however this is an absolute amount is less than 170 ml, not significant. Lung volumes: The total lung capacity is 4.91 L, 85%, normal. Residual volume is 1.7 L, 71%, normal. RV/TLC is 35%, no air trapping. Airway resistance is increased, 251%. Diffusion: DLCO is 12, 55% predicted, moderately decreased. DLCO/VA is 2.52, 73% predicted, normal. Flow volume loop: Normal. IMPRESSION: This study shows a mild obstructive ventilatory impairment without response to bronchodilator, normal lung volumes with a moderate diffusion impairment. The diffusion impairment partially corrects for alveolar volume. Lack of response to bronchodilator should not preclude use if clinically indicated. Nolvia Howe MD
== END 2022-06-16 10:26 | disposition home or self-care (01) ==
LOC: CHSCARD 10:26
PROVIDERS: PCP Family Medicine; Visit Provider Nurse Practitioner
DX: R05.9 Cough, unspecified (principal)
CPT/HCPCS: 94060; 94726; 94729

== ENCOUNTER 2022-07-28 10:47 | Outpatient (CLI) | payer MEDICARE, SELFPAY ==
[2022-07-28 11:08] LABS: Hemoglobin 7.5 g/dL (11.7-13.8); Mean Corpuscular HGB Conc 28.8 g/dL (32.0-36.0); Mean Corpuscular Hemoglobin 25.3 pg (27.0-31.0); Mean Corpuscular Volume 87.8 fL (78.0-102.0); Mean Platelet Volume 11.1 fl (9.2-11.8); Platelet Count Result 237 K/mm3 (150-420); Red Blood Count 2.96 M/mm3 (4.20-5.40); Red Cell Distribution Width 19.6 % (11.6-14.4); White Blood Count 5.9 K/mm3 (4.8-10.8)
[2022-07-28 12:08] LABS: Ferritin 11 ng/mL (8-252)
== END 2022-07-28 10:48 | disposition home or self-care (01) ==
LOC: CHSLAB 10:49
PROVIDERS: PCP Family Medicine; Visit Provider Family Medicine
DX: D50.9 Iron deficiency anemia, unspecified (principal); R53.83 Other fatigue
CPT/HCPCS: 36415; 82728; 85027

== ENCOUNTER 2022-08-01 09:47 | Outpatient (CLI) | payer MEDICARE, SELFPAY ==
[2022-08-01 09:58] LABS: Hematocrit 23.4 % (35.0-42.0); Mean Corpuscular HGB Conc 29.9 g/dL (32.0-36.0); Mean Platelet Volume 10.4 fl (9.2-11.8); Platelet Count Result 231 K/mm3 (150-420); Red Blood Count 2.69 M/mm3 (4.20-5.40); Red Cell Distribution Width 19.7 % (11.6-14.4); White Blood Count 6.4 K/mm3 (4.8-10.8)
== END 2022-08-01 09:48 | disposition home or self-care (01) ==
LOC: CHSLAB 09:49
PROVIDERS: PCP Family Medicine; Visit Provider Family Medicine
DX: D64.9 Anemia, unspecified (principal)
CPT/HCPCS: 36415; 85027

== ENCOUNTER 2022-08-01 15:06 | Emergency (ER) | payer MEDICARE, SELFPAY ==
[2022-08-01] VITALS (20 sets, daily range): BP systolic 117–154; BP diastolic 50–109; PULSE 61–97; RESP 16–23; TEMP 36.7–36.9; O2SAT 95–100
--- NOTE | 2022-08-01 15:28 | ED.GENADULT ---
HPI - General Adult General Chief complaint: Shortness of Breath/Dyspnea Stated complaint: weak, short of breath Time Seen by Provider: 08/01/22 15:11 History of Present Illness HPI narrative: 76-year-old female with anxiety, hypertension, coronary artery disease status post stents, CHF with an EF of 15-20%, DVT, celiac sprue, chronic skin rash, portal vein thrombosis, rheumatoid arthritis, GERD, hypothyroidism, NAI, CSA with chronic anemia with negative EGD/colonoscopy and currently has capsule endoscopy in process, received IV iron and folate, CKD was noted to have -- had blood work which revealed a hemoglobin of 7/23.4 down from7.5/26 4 days ago. -- Tiredness with decreased energy -- dyspnea on exertion. Onset (ago): day(s) ( past 3 days) Severity: moderate Relieving factors: none Exacerbating factors: none Associated symptoms: malaise, rash, shortness of breath and weakness Treatments prior to arrival: none Related Data Home Medications Medication Instructions Recorded Confirmed atorvastatin 40 mg tablet 40 mg PO DAILY 09/23/21 08/01/22 clopidogrel 75 mg tablet 75 mg PO DAILY 09/23/21 08/01/22 pilocarpine HCl 5 mg tablet 5 mg PO TID 09/23/21 08/01/22 levothyroxine 112 mcg tablet 112 mcg PO DAILY 03/29/22 08/01/22 magnesium oxide 250 mg PO BID 03/29/22 08/01/22 Allergies Allergy/AdvReac Type Severity Reaction Status Date / Time azithromycin AdvReac Redness of Verified 08/01/22 15:30 Skin gluten AdvReac Unknown Verified 08/01/22 15:30 wheat AdvReac Unknown Verified 08/01/22 15:30 Review of Systems Review of Systems: All systems reviewed & are unremarkable except as noted in HPI and below Constitutional: Constitutional: Reports as per HPI and Reports no additional constitutional complaints Eyes: Eyes: Reports as per HPI and Reports no additional eye complaints ENT: Reports system reviewed and no additional complaints, except as documented and Reports as per HPI Cardiovascular: Cardiovascular: Reports as per HPI and Reports no additional cardiovascular complaints Respiratory: Respiratory: Reports as per HPI and Reports no additional respiratory complaints Gastrointestinal: Gastrointestinal: Reports as per HPI and Reports no additional gastrointestinal complaints Genitourinary: Genitourinary: Reports no additional female genitourinary complaints and Reports as per HPI Musculoskeletal: Musculoskeletal: Reports no additional musculoskeletal complaints and Reports as per HPI Integumentary/Breasts: Skin/Breast: Reports system reviewed and no additional complaints, except as docu and Reports as per HPI Neurologic: Reports system reviewed and no additional complaints, except as documented and Reports as per HPI Psychiatric: Psychiatric: Reports no additional psychiatric complaints, Reports as per HPI and Reports anxiety Endocrine: Endocrine: Reports no additional endocrine complaints and Reports as per HPI Hematologic/Lymphatic: Hematologic/Lymphatic: Reports no additional hematologic/lymphatic complaints and Reports as per HPI Allergic/Immunologic: Allergic/Immunologic: Reports no additional allergic/immunologic complaints and Reports as per HPI PMFSH Past Medical History Medical History Anxiety Celiac disease Coronary artery disease DVT (deep venous thrombosis) Gait instability GERD (gastroesophageal reflux disease) Hypertension Hypothyroidism Portal vein thrombosis Rheumatoid arthritis Surgical History Surgical History H/O shoulder surgery History of appendectomy History of History of coronary artery stent placement Family History Family History Father Cerebrovascular accident Social History Social History Smoking status: Never smoker Second hand tobacco
[2022-08-01 16:40] LABS: Hematocrit 23.3 % (35.0-42.0); Mean Corpuscular HGB Conc 28.3 g/dL (32.0-36.0); Mean Corpuscular Hemoglobin 24.9 pg (27.0-31.0); Mean Corpuscular Volume 87.9 fL (78.0-102.0); Mean Platelet Volume 11.9 fl (9.2-11.8); Platelet Count Result 224 K/mm3 (150-420); Red Blood Count 2.65 M/mm3 (4.20-5.40); Red Cell Distribution Width 19.9 % (11.6-14.4); White Blood Count 5.8 K/mm3 (4.8-10.8)
[2022-08-01 16:56] LABS: Alanine Aminotransferase 17 U/L (14-59); Albumin Level 3.2 g/dL (3.4-5.0); Alkaline Phosphatase 75 U/L (46-116); Anion Gap 6 mmol/L (8-16); Aspartate Amino Transferase 18 U/L (15-37); Bilirubin,Total 0.3 mg/dL (0.00-1.00); Blood Urea Nitrogen 29 mg/dL (7-18); Calcium 8.3 mg/dL (8.5-10.1); Carbon Dioxide 30 mmol/L (21-32); Chloride 107 mmol/L (98-108); Estimated Glomerular Filt Rate 31; Glucose 120 mg/dL (70-99); Osmolality Calculated 302 mOsm/kg (285-295); Potassium 4.3 mmol/L (3.5-5.1); Sodium 143 mmol/L (136-145); Total Protein 6.6 g/dL (6.4-8.2)
[2022-08-01 17:26] LABS: Hemoglobin 6.6 g/dL (11.7-13.8)
[2022-08-01 17:36] LABS: Band Neutrophils Percent 0 % (0-6); Eosinophils Absolute Manual 0.52 K/mm3 (0.02-0.5); Eosinophils Percent Manual 9 % (1-6); Giant Platelets Present; Hypochromasia 2+ (NORMAL); Lymphocytes Absolute Manual 0.92 K/mm3 (1.1-4.5); Lymphocytes Percent Manual 16 % (18-44); Monocytes Percent Manual 19 % (3-9); Neutrophils Absolute Manual 3.24 K/mm3 (1.7-7.2); Neutrophils Percent Manual 56 % (46-73); Platelet Estimate Adequate (Adequate)
[2022-08-01 17:37] LABS: Total Cells Counted 100
[2022-08-01 17:48] LABS: Immature Reticulocyte Fraction 14.4 % (2.0-16.52); Reticulocyte Hemoglobin Conten 17.6 pg (28.0-35.0); Reticulocyte Percent 0.99 % (0.50-1.50); Reticulocytes Absolute 0.03 M/mm3 (0.02-0.1)
[2022-08-01 17:58] LABS: Occult Blood Positive (Negative)
[2022-08-01 18:22] LABS: Prothrombin Time 10.9 Seconds (9.50-12.10)
[2022-08-01 18:33] LABS: Lactate Dehydrogenase 201 U/L (81-234)
[2022-08-01 19:49] LABS: SARS-CoV-2 RNA PCR Negative (Negative)
--- NOTE | 2022-08-01 19:51 | ED.CHESTPAIN ---
HPI - Chest Pain General Chief Complaint: Shortness of Breath/Dyspnea Stated Complaint: weak, short of breath Time Seen by Provider: 08/01/22 15:11 Related Data Home Medications Medication Instructions Recorded Confirmed atorvastatin 40 mg tablet 40 mg PO DAILY 09/23/21 08/01/22 clopidogrel 75 mg tablet 75 mg PO DAILY 09/23/21 08/01/22 pilocarpine HCl 5 mg tablet 5 mg PO TID 09/23/21 08/01/22 levothyroxine 112 mcg tablet 112 mcg PO DAILY 03/29/22 08/01/22 magnesium oxide 250 mg PO BID 03/29/22 08/01/22 Allergies Allergy/AdvReac Type Severity Reaction Status Date / Time azithromycin AdvReac Redness of Verified 08/01/22 15:30 Skin gluten AdvReac Unknown Verified 08/01/22 15:30 wheat AdvReac Unknown Verified 08/01/22 15:30 PMFSH Past Medical History Medical History Anxiety Celiac disease Coronary artery disease DVT (deep venous thrombosis) Gait instability GERD (gastroesophageal reflux disease) Hypertension Hypothyroidism Portal vein thrombosis Rheumatoid arthritis Surgical History Surgical History H/O shoulder surgery History of appendectomy History of History of coronary artery stent placement Family History Family History Father Cerebrovascular accident Social History Social History Smoking status: Never smoker Second hand tobacco smoke exposure: No Alcohol intake: never Drinks per week: 1 Substance use: never Substance use type: does not use Lack of Transportation: No Current Housing: I Have Housing Concerned About Future Housing: No Difficulty Paying Gas/Electric Bills: No Difficulty Paying for Meds: No Currently Unemployed: No Education: High School Diploma/GED Difficulty w/ Childcare or Family Care: No Gender identity (if verbalized by the patient): Female Sexual Orientation (if Verbalized by the Patient): Straight or Heterosexual Spiritual care concerns: No Course Vital Signs Vital signs: Vital Signs Temperature 36.8 C 08/01/22 15:10 Pulse Rate 61 08/01/22 15:10 Respiratory Rate 18 08/01/22 15:10 Blood Pressure 117/50 L 08/01/22 15:10 Pulse Oximetry 95 08/01/22 15:10 Oxygen Delivery Room Air 08/01/22 15:10 Temperature 36.7 C 08/01/22 19:26 Pulse Rate 63 08/01/22 19:32 Respiratory Rate 17 08/01/22 19:32 Blood Pressure 138/70 08/01/22 19:26 Pulse Oximetry 96 08/01/22 19:32 Oxygen Delivery Room Air 08/01/22 19:26 MDM - Chest Pain Lab Data 08/01/22 16:36 08/01/22 16:36 Labs: Lab Results 08/01/22 08/01/22 08/01/22 Range/Units 16:36 16:36 16:36 WBC 5.8 (4.8-10.8) K/mm3 RBC 2.65 L (4.20-5.40) M/mm3 Hgb 6.6 L* (11.7-13.8) g/dL Hct 23.3 L (35.0-42.0) % MCV 87.9 (78.0-102.0) fL MCH 24.9 L (27.0-31.0) pg MCHC 28.3 L (32.0-36.0) g/dL RDW 19.9 H (11.6-14.4) % Plt Count 224 (150-420) K/mm3 MPV 11.9 H (9.2-11.8) fl Immature Gran % (Auto) Not Reportable Neut % (Auto) Not Reportable Lymph % (Auto) Not Reportable [place] % (Auto) Not Reportable Eos % (Auto) Not Reportable Baso % (Auto) Not Reportable Lymph # (Auto) Not Reportable [place] # (Auto) Not Reportable Eos # (Auto) Not Reportable Baso # (Auto) Not Reportable Abs Immat Gran (auto) Not Reportable Absolute Neuts (auto) Not Reportable Absolute Nucleated RBC Not Reportable Total Counted 100 Neutrophils % (Manual) 56 (46-73) % Band Neutrophils % 0 (0-6) % Lymphocytes % (Manual) 16 L (18-44) % Monocytes % (Manual) 19 H (3-9) % Eosinophils % (Manual) 9 H (1-6) % Nucleated RBC % Not Reportable Abs Neuts (Manual) 3.24 (1.7-7.2) K/mm3 Abs Lymphs (
--- NOTE | 2022-08-01 20:04 | ED.SOB ---
HPI - SOB/Dyspnea General Chief Complaint: Shortness of Breath/Dyspnea Stated Complaint: weak, short of breath Time Seen by Provider: 08/01/22 15:11 Source: patient Mode of arrival: ambulatory History of Present Illness HPI Narrative: an initial history and physical which was completed got erased for technical reasons. 76-year-old female With a history of anxiety, coronary artery disease, DVT, portal vein thrombosis on Xarelto, celiac disease, chronic rash, hypertension, rheumatoid arthritis, GERD, hypothyroidism, CHF with an EF of 15-20%, NAI, chronic anemia with a negative upper and lower GI endoscopy and currently has a capsule endoscopy in a stomach, iron deficiency/ folate deficiency anemia presents to the ER with -- weakness. Fatigue -- shortness of breath which is worse on movement no orthopnea or paroxysmal nocturnal dyspnea. No leg swelling. -- Decrease of hemoglobin from 7.5 to 7 for which she was directed to the ER. No hematemesis or melena. She has dark colored stool without any black tarry stool. MD elicited complaint: shortness of breath Pertinent past history: congestive heart failure Onset (ago): day(s) ( Past few days) Timing: constant Severity: moderate Exacerbating factors: nothing Relieving factors: nothing Known history of: congestive heart failure Associated symptoms: denies other symptoms and rash ( history of chronic rash for which she has been seen by multiple dermatologists.) Treatment prior to arrival: none Related Data Home Medications Medication Instructions Recorded Confirmed atorvastatin 40 mg tablet 40 mg PO DAILY 09/23/21 08/01/22 clopidogrel 75 mg tablet 75 mg PO DAILY 09/23/21 08/01/22 pilocarpine HCl 5 mg tablet 5 mg PO TID 09/23/21 08/01/22 levothyroxine 112 mcg tablet 112 mcg PO DAILY 03/29/22 08/01/22 magnesium oxide 250 mg PO BID 03/29/22 08/01/22 Allergies Allergy/AdvReac Type Severity Reaction Status Date / Time azithromycin AdvReac Redness of Verified 08/01/22 15:30 Skin gluten AdvReac Unknown Verified 08/01/22 15:30 wheat AdvReac Unknown Verified 08/01/22 15:30 Review of Systems Review of Systems: All systems reviewed & are unremarkable except as noted in HPI and below Constitutional: Constitutional: Reports as per HPI, Reports no additional constitutional complaints, Reports fatigue and Reports weakness Eyes: Eyes: Reports as per HPI and Reports no additional eye complaints ENT: Reports system reviewed and no additional complaints, except as documented and Reports as per HPI Cardiovascular: Cardiovascular: Reports as per HPI and Reports no additional cardiovascular complaints Respiratory: Respiratory: Reports as per HPI and Reports no additional respiratory complaints Gastrointestinal: Gastrointestinal: Reports as per HPI and Reports no additional gastrointestinal complaints Genitourinary: Genitourinary: Reports no additional female genitourinary complaints and Reports as per HPI Musculoskeletal: Musculoskeletal: Reports no additional musculoskeletal complaints and Reports as per HPI Integumentary/Breasts: Skin/Breast: Reports system reviewed and no additional complaints, except as docu and Reports as per HPI Neurologic: Reports system reviewed and no additional complaints, except as documented, Reports as per HPI and Reports weakness Psychiatric: Psychiatric: Reports no additional psychiatric complaints, Reports as per HPI and Reports anxiety Endocrine: Endocrine: Reports no additional endocrine complaints and Reports as per HPI Hematologic/Lymphatic: Hematologic/Lymphatic: Reports no additional hematologic/lymphatic complaints and Reports as per HPI Allergic/Immunologic: Allergic/Immunologic: Reports no additional allergic/immunologic complaints and Reports as per HPI PENDING SALE TO [facility] Past Medical History Medical History Anxiety Celiac disease Coronary artery disease DVT (deep venous thrombosis) Gait inst
[2022-08-01 21:46] LABS: Hematocrit 29.1 % (35.0-42.0); Hemoglobin 8.6 g/dL (11.7-13.8)
[2022-08-01] MEDS: PANTOPRAZOLE SODIUM IV 40 MG VIAL IV PUSH (21:49)
[2022-08-01] MEDS: LACTATED RINGERS 1,000 ML 30 ML IV CONT (21:49)
[2022-08-01] MEDS: SODIUM CHLORIDE 0.9% IV 250 ML 30 ML IV CONT (21:50)
== END 2022-08-02 01:13 | disposition short-term general hospital (02) ==
PROVIDERS: Emergency Provider Internal Medicine Critical Care Medicine; PCP Family Medicine
DX: D64.9 Anemia, unspecified (principal); K92.2 Gastrointestinal hemorrhage, unspecified; I13.0 Hypertensive heart and chronic kidney disease with heart failure and stage 1 through stage 4 chronic kidney disease, or unspecified chronic kidney disease; N18.30 Chronic kidney disease, stage 3 unspecified; I50.9 Heart failure, unspecified; I25.10 Atherosclerotic heart disease of native coronary artery without angina pectoris; E03.9 Hypothyroidism, unspecified; M06.9 Rheumatoid arthritis, unspecified; Z86.718 Personal history of other venous thrombosis and embolism; Z79.01 Long term (current) use of anticoagulants; Z20.822 Contact with and (suspected) exposure to COVID-19
CPT/HCPCS: 36415; 36430; 80053; 83615; 85014; 85018; 85025; 85046; 85610; 85730; 86850; 86900; 86901; 86920; 96361; 96374; 99285; C9113; J7050; J7120; P9016; U0003; U0005

== ENCOUNTER 2022-08-08 14:52 | Outpatient (CLI) | payer MEDICARE, SELFPAY ==
[2022-08-08 15:05] LABS: Hemoglobin 7.6 g/dL (11.7-13.8); Mean Corpuscular HGB Conc 30.4 g/dL (32.0-36.0); Mean Corpuscular Hemoglobin 26.2 pg (27.0-31.0); Mean Corpuscular Volume 86.2 fL (78.0-102.0); Mean Platelet Volume 10.6 fl (9.2-11.8); Platelet Count Result 195 K/mm3 (150-420); Red Cell Distribution Width 18.9 % (11.6-14.4); White Blood Count 9.5 K/mm3 (4.8-10.8)
[2022-08-09 16:15] LABS: Iron 11 ug/dL (50-170)
== END 2022-08-08 14:53 | disposition home or self-care (01) ==
LOC: CHSLAB 14:53
PROVIDERS: Nurse Practitioner Family; PCP Family Medicine; Visit Provider Family Medicine
DX: D64.9 Anemia, unspecified (principal)
CPT/HCPCS: 36415; 83540; 85027

== ENCOUNTER 2022-08-14 15:38 | Outpatient (CLI) | payer SELFPAY ==
[2022-08-14 16:01] LABS: Basophils Absolute Auto 0.01 K/mm3 (0.00-0.10); Basophils Percent Auto 0.1 % (0.0-1.0); Eosinophils Absolute Auto 0.09 K/mm3 (0.02-0.50); Eosinophils Percent Auto 0.9 % (1.0-6.0); Hematocrit 28.2 % (35.0-42.0); Hemoglobin 8.6 g/dL (11.7-13.8); Immature Granulocyte Absolute 0.02 K/mm3 (0.00-0.00); Immature Granulocyte Percent A 0.2 % (0.0-0.0); Lymphocytes Absolute Auto 0.67 K/mm3 (1.10-4.50); Lymphocytes Percent Auto 7.1 % (18.0-42.0); Mean Corpuscular HGB Conc 30.5 g/dL (32.0-36.0); Mean Corpuscular Hemoglobin 25.5 pg (27.0-31.0); Mean Corpuscular Volume 83.7 fL (78.0-102.0); Mean Platelet Volume 10.6 fl (9.2-11.8); Monocytes Absolute Auto 0.43 K/mm3 (0.10-0.90); Monocytes Percent Auto 4.5 % (2.0-11.0); Neutrophils Absolute Auto 8.3 K/mm3 (1.7-7.2); Neutrophils Percent Auto 87.2 % (50.0-70.0); Nucleated Red Blood Cells Absolute Auto 0.03 K/mm3 (0.00-0.00); Nucleated Red Blood Cells Perc 0.3 % (0-0.0); Platelet Count Result 382 K/mm3 (150-420); Red Blood Count 3.37 M/mm3 (4.20-5.40); Red Cell Distribution Width 19.2 % (11.6-14.4); White Blood Count 9.5 K/mm3 (4.8-10.8)
== END 2022-08-14 15:39 | disposition home or self-care (01) ==
LOC: CHSLAB 15:45
PROVIDERS: PCP Family Medicine; Visit Provider Nurse Practitioner Family
DX: D64.9 Anemia, unspecified (principal)
CPT/HCPCS: 36415; 85025

== ENCOUNTER 2022-09-08 15:08 | Outpatient (CLI) | payer MEDICARE, SELFPAY ==
[2022-09-08 15:18] LABS: Occult Blood Positive (Negative)
== END 2022-09-08 15:09 | disposition home or self-care (01) ==
LOC: CHSLAB 15:11
PROVIDERS: PCP Family Medicine; Visit Provider Family Medicine
DX: D64.9 Anemia, unspecified (principal)
CPT/HCPCS: 82272

== ENCOUNTER 2022-10-04 12:52 | Outpatient (CLI) | payer MEDICARE, SELFPAY ==
[2022-10-04 13:13] LABS: Basophils Absolute Auto 0.04 K/mm3 (0.00-0.10); Basophils Percent Auto 0.6 % (0.0-1.0); Eosinophils Absolute Auto 0.54 K/mm3 (0.02-0.50); Eosinophils Percent Auto 8.6 % (1.0-6.0); Hematocrit 31.9 % (35.0-42.0); Hemoglobin 9.4 g/dL (11.7-13.8); Immature Granulocyte Absolute 0.02 K/mm3 (0.00-0.00); Immature Granulocyte Percent A 0.3 % (0.0-0.0); Lymphocytes Percent Auto 14.4 % (18.0-42.0); Mean Corpuscular HGB Conc 29.5 g/dL (32.0-36.0); Mean Corpuscular Hemoglobin 23.4 pg (27.0-31.0); Mean Corpuscular Volume 79.6 fL (78.0-102.0); Mean Platelet Volume 11.7 fl (9.2-11.8); Monocytes Absolute Auto 0.83 K/mm3 (0.10-0.90); Monocytes Percent Auto 13.3 % (2.0-11.0); Neutrophils Absolute Auto 3.9 K/mm3 (1.7-7.2); Neutrophils Percent Auto 62.8 % (50.0-70.0); Platelet Count Result 220 K/mm3 (150-420); Red Blood Count 4.01 M/mm3 (4.20-5.40); White Blood Count 6.3 K/mm3 (4.8-10.8)
[2022-10-04 13:32] LABS: Anion Gap 9 mmol/L (8-16); Blood Urea Nitrogen 35 mg/dL (7-18); Calcium 8.5 mg/dL (8.5-10.1); Carbon Dioxide 30 mmol/L (21-32); Chloride 105 mmol/L (98-108); Estimated Glomerular Filt Rate 30; Glucose 113 mg/dL (70-99); Osmolality Calculated 307 mOsm/kg (285-295); Sodium 144 mmol/L (136-145)
== END 2022-10-04 12:53 | disposition home or self-care (01) ==
LOC: CHSLAB 12:57
PROVIDERS: PCP Family Medicine
DX: R19.5 Other fecal abnormalities (principal); I50.23 Acute on chronic systolic (congestive) heart failure; D50.9 Iron deficiency anemia, unspecified
CPT/HCPCS: 36415; 80048; 85025; 85055

== ENCOUNTER 2022-10-19 13:54 | Outpatient (CLI) | payer MEDICARE, SELFPAY ==
[2022-10-19 14:11] LABS: Basophils Absolute Auto 0.05 K/mm3 (0.00-0.10); Basophils Percent Auto 0.8 % (0.0-1.0); Eosinophils Percent Auto 12.9 % (1.0-6.0); Hematocrit 32.1 % (35.0-42.0); Hemoglobin 9.3 g/dL (11.7-13.8); Immature Granulocyte Absolute 0.01 K/mm3 (0.00-0.00); Immature Granulocyte Percent A 0.2 % (0.0-0.0); Lymphocytes Absolute Auto 1.28 K/mm3 (1.10-4.50); Lymphocytes Percent Auto 20.6 % (18.0-42.0); Mean Corpuscular Hemoglobin 22.9 pg (27.0-31.0); Mean Corpuscular Volume 79.1 fL (78.0-102.0); Mean Platelet Volume 10.1 fl (9.2-11.8); Monocytes Absolute Auto 0.79 K/mm3 (0.10-0.90); Monocytes Percent Auto 12.7 % (2.0-11.0); Neutrophils Absolute Auto 3.3 K/mm3 (1.7-7.2); Neutrophils Percent Auto 52.8 % (50.0-70.0); Platelet Count Result 200 K/mm3 (150-420); Red Blood Count 4.06 M/mm3 (4.20-5.40); Red Cell Distribution Width 21.7 % (11.6-14.4); White Blood Count 6.2 K/mm3 (4.8-10.8)
== END 2022-10-19 13:55 | disposition home or self-care (01) ==
LOC: CHSLAB 14:01
PROVIDERS: PCP Family Medicine
DX: D50.9 Iron deficiency anemia, unspecified (principal)
CPT/HCPCS: 36415; 85025

== ENCOUNTER 2022-11-07 10:11 | Outpatient (CLI) | payer MEDICARE, SELFPAY ==
--- NOTE | 2022-11-07 10:32 | ECG_ITS ---
Rate 115 IN 247 QRSd 108 QT 320 QTc 443 --[place]-- P 44 QRS 96 T -32 SUPRAVENTRICULAR TACHYCARDIA RIGHT AXIS DEVIATION NONSPECIFIC ST & T-WAVE ABNORMALITY- INF/LAT LEADS ABNORMAL ECG Electronically Signed On 11-07-2022 11:37:24 CDT by Andres Mcdonald D.O. COMPARED TO ECG 04/14/2021 17:22:09 NO SIGNIFICANT CHANGES MTDD
[2022-11-07 10:45] LABS: Basophils Absolute Auto 0.05 K/mm3 (0.00-0.10); Basophils Percent Auto 0.7 % (0.0-1.0); Eosinophils Absolute Auto 0.63 K/mm3 (0.02-0.50); Eosinophils Percent Auto 9.4 % (1.0-6.0); Hematocrit 25.7 % (35.0-42.0); Hemoglobin 7.5 g/dL (11.7-13.8); Immature Granulocyte Absolute 0.01 K/mm3 (0.00-0.00); Immature Granulocyte Percent A 0.1 % (0.0-0.0); Lymphocytes Absolute Auto 1.13 K/mm3 (1.10-4.50); Lymphocytes Percent Auto 16.9 % (18.0-42.0); Mean Corpuscular HGB Conc 29.2 g/dL (32.0-36.0); Mean Corpuscular Hemoglobin 23.1 pg (27.0-31.0); Mean Corpuscular Volume 79.1 fL (78.0-102.0); Mean Platelet Volume 9.9 fl (9.2-11.8); Monocytes Absolute Auto 0.85 K/mm3 (0.10-0.90); Monocytes Percent Auto 12.7 % (2.0-11.0); Neutrophils Percent Auto 60.2 % (50.0-70.0); Platelet Count Result 222 K/mm3 (150-420); Red Blood Count 3.25 M/mm3 (4.20-5.40); Red Cell Distribution Width 22.9 % (11.6-14.4); White Blood Count 6.7 K/mm3 (4.8-10.8)
== END 2022-11-07 10:12 | disposition home or self-care (01) ==
PROVIDERS: PCP Family Medicine
DX: I48.91 Unspecified atrial fibrillation (principal); R94.31 Abnormal electrocardiogram [ECG] [EKG]
CPT/HCPCS: 36415; 85025; 93005

== ENCOUNTER 2022-11-22 14:35 | Outpatient (CLI) | payer MEDICARE, SELFPAY ==
[2022-11-22 14:51] LABS: Hematocrit 32.1 % (35.0-42.0); Hemoglobin 9.3 g/dL (11.7-13.8); Mean Corpuscular Volume 82.9 fL (78.0-102.0); Mean Platelet Volume 10.8 fl (9.2-11.8); Platelet Count Result 201 K/mm3 (150-420); Red Blood Count 3.87 M/mm3 (4.20-5.40); Red Cell Distribution Width 23.9 % (11.6-14.4); White Blood Count 5.3 K/mm3 (4.8-10.8)
== END 2022-11-22 14:36 | disposition home or self-care (01) ==
LOC: CHSLAB 14:37
PROVIDERS: PCP Family Medicine; Visit Provider Family Medicine
DX: D64.9 Anemia, unspecified (principal)
CPT/HCPCS: 36415; 85027; 85055

== ENCOUNTER 2022-11-25 06:15 | Emergency (ER) | payer MEDICARE, SELFPAY ==
[2022-11-25 06:34] VITALS: BP 124/73; PULSE 71; RESP 20; TEMP 36.4; O2SAT 95
[2022-11-25] MEDS: OXYMETAZOLINE HCL 0.05% NAS 15 ML BTL (*BKC) 2 SPRAY NASAL (07:17)
--- NOTE | 2022-11-25 07:30 | ED.GENADULT ---
HPI - General Adult General Chief complaint: Epistaxis Stated complaint: Nose Bleed History of Present Illness HPI narrative: 77yo woman h/o afib on rivaroxaban presents with intermittent nosebleeding onset last night that will quit and start again. No known trauma, though she does pick her nose. BP not elevated but was at home was 100/50, and is 124/73 here. No pain. Related Data Home Medications Medication Instructions Recorded Confirmed atorvastatin 40 mg tablet 40 mg PO DAILY 09/23/21 11/25/22 clopidogrel 75 mg tablet 75 mg PO DAILY 09/23/21 11/25/22 levothyroxine 112 mcg tablet 112 mcg PO DAILY 03/29/22 11/25/22 furosemide 40 mg tablet See Rx Instructions .Route .COMPLEX 08/09/22 11/25/22 clonazepam 0.5 mg tablet 0.5 mg PO DAILY 10/04/22 11/25/22 losartan 25 mg tablet 12.5 mg PO DAILY 10/04/22 11/25/22 rivaroxaban 15 mg tablet 15 mg PO DAILY 10/04/22 11/25/22 spironolactone 25 mg tablet 12.5 mg PO DAILY 10/04/22 11/25/22 Allergies Allergy/AdvReac Type Severity Reaction Status Date / Time azithromycin AdvReac Redness of Verified 11/25/22 06:27 Skin gluten AdvReac Unknown Verified 11/25/22 06:27 wheat AdvReac Unknown Verified 11/25/22 06:27 Review of Systems Review of Systems: All systems reviewed & are unremarkable except as noted in HPI and below Constitutional: Constitutional: Denies chills and Denies fever(s) Cardiovascular: Cardiovascular: Denies chest pain Respiratory: Respiratory: Denies dyspnea [facility] Past Medical History Medical History Anxiety Celiac disease Coronary artery disease DVT (deep venous thrombosis) Gait instability GERD (gastroesophageal reflux disease) Hypertension Hypothyroidism Portal vein thrombosis Rheumatoid arthritis Surgical History Surgical History H/O shoulder surgery History of appendectomy History of History of coronary artery stent placement Family History Family History Father Cerebrovascular accident Social History Social History Smoking status: Never smoker Second hand tobacco smoke exposure: No Alcohol intake: never Drinks per week: 1 Substance use: never Substance use type: does not use Lack of Transportation: No Current Housing: I Have Housing Concerned About Future Housing: No Difficulty Paying Gas/Electric Bills: No Difficulty Paying for Meds: No Currently Unemployed: No Education: High School Diploma/GED Difficulty w/ Childcare or Family Care: No Living arrangements: with family Gender identity (if verbalized by the patient): Female Sexual Orientation (if Verbalized by the Patient): Straight or Heterosexual Spiritual care concerns: No Exam Const: General: healthy appearing and no acute distress Nutritional Appearance: well nourished HENMT: Other: pink septal mucosa intact, left normal, right with just a thin sliver of erythema, looks like an abrasion, no prominent vessel, swelling, or bleeding. No masses. Eyes: Conjunctivae: conjunctivae normal Neck: Other: supple Resp: Effort & Inspection: normal respiratory effort and not labored Cardio: Rate: regular rate Other: no edema Skin: General skin exam: normal color, no jaundice and no pallor Neuro: General: patient oriented x3 Gait exam (Neuro): Normal gait present Extrem: General: no clubbing, cyanosis or edema Course Vital Signs Vital signs: Vital Signs Temperature 36.4 C L 11/25/22 06:34 Pulse Rate 71 11/25/22 06:34 Respiratory Rate 20 11/25/22 06:34 Blood Pressure 124/73 11/25/22 06:34 Pulse Oximetry 95 11/25/22 06:34 Oxygen Delivery Room Air 11/25/22 06:34 Temperature 36.9 C 11/25/22 07:46 Pulse Rate 68 11/25/22 07:46 Respiratory Rate 17 11/25/22 07:46 Blood Pressure
[2022-11-25 07:46] VITALS: BP 139/77; PULSE 68; RESP 17; TEMP 36.9; O2SAT 98
== END 2022-11-25 07:47 | disposition home or self-care (01) ==
PROVIDERS: Emergency Provider Emergency Medicine; PCP Family Medicine
DX: R04.0 Epistaxis (principal); F41.9 Anxiety disorder, unspecified; I25.10 Atherosclerotic heart disease of native coronary artery without angina pectoris; E03.9 Hypothyroidism, unspecified; I10 Essential (primary) hypertension; Z79.01 Long term (current) use of anticoagulants; Z86.718 Personal history of other venous thrombosis and embolism
CPT/HCPCS: 99282; A9270

== ENCOUNTER 2022-12-01 15:08 | Outpatient (CLI) | payer MEDICARE, SELFPAY ==
[2022-12-01 16:00] LABS: Free T4 Free Thyroxine 1.32 ng/dL (0.76-1.46); Thyroid Stimulating Hormone 5.06 uIU/mL (0.36-3.74)
== END 2022-12-01 15:09 | disposition home or self-care (01) ==
LOC: CHSLAB 15:09
PROVIDERS: PCP Family Medicine; Visit Provider Family Medicine
DX: E03.9 Hypothyroidism, unspecified (principal)
CPT/HCPCS: 36415; 84439; 84443

== ENCOUNTER 2022-12-29 18:24 | Outpatient (CLI) | payer MEDICARE, SELFPAY ==
[2022-12-29 20:41] LABS: Occult Blood Positive (Negative)
== END 2022-12-29 18:25 | disposition home or self-care (01) ==
LOC: CHSLAB 18:26
PROVIDERS: PCP Family Medicine; Visit Provider Family Medicine
DX: K92.2 Gastrointestinal hemorrhage, unspecified (principal)
CPT/HCPCS: 82272

== ENCOUNTER 2023-01-03 12:31 | Outpatient (CLI) | payer MEDICARE, SELFPAY ==
[2023-01-03 12:45] LABS: Hematocrit 24.1 % (35.0-42.0); Hemoglobin 7.1 g/dL (11.7-13.8); Mean Corpuscular HGB Conc 29.5 g/dL (32.0-36.0); Mean Corpuscular Hemoglobin 24.3 pg (27.0-31.0); Mean Corpuscular Volume 82.5 fL (78.0-102.0); Mean Platelet Volume 11.3 fl (9.2-11.8); Platelet Count Result 231 K/mm3 (150-420); Red Blood Count 2.92 M/mm3 (4.20-5.40); Red Cell Distribution Width 21.5 % (11.6-14.4); White Blood Count 14.2 K/mm3 (4.8-10.8)
== END 2023-01-03 12:32 | disposition home or self-care (01) ==
LOC: CHSLAB 12:35
PROVIDERS: PCP Family Medicine; Visit Provider Family Medicine
DX: D64.9 Anemia, unspecified (principal)
CPT/HCPCS: 36415; 85027

== ENCOUNTER 2023-01-10 14:44 | Outpatient (CLI) | payer MEDICARE, SELFPAY ==
[2023-01-10 14:57] LABS: Basophils Absolute Auto 0.03 K/mm3 (0.00-0.10); Basophils Percent Auto 0.5 % (0.0-1.0); Eosinophils Absolute Auto 0.46 K/mm3 (0.02-0.50); Eosinophils Percent Auto 7.8 % (1.0-6.0); Hematocrit 21.8 % (35.0-42.0); Immature Granulocyte Absolute 0.01 K/mm3 (0.00-0.00); Immature Granulocyte Percent A 0.2 % (0.0-0.0); Lymphocytes Absolute Auto 0.71 K/mm3 (1.10-4.50); Lymphocytes Percent Auto 12.1 % (18.0-42.0); Mean Corpuscular Hemoglobin 23.6 pg (27.0-31.0); Mean Corpuscular Volume 84.5 fL (78.0-102.0); Mean Platelet Volume 10.3 fl (9.2-11.8); Monocytes Absolute Auto 0.63 K/mm3 (0.10-0.90); Monocytes Percent Auto 10.7 % (2.0-11.0); Neutrophils Percent Auto 68.7 % (50.0-70.0); Platelet Count Result 200 K/mm3 (150-420); Red Blood Count 2.58 M/mm3 (4.20-5.40); Red Cell Distribution Width 21.2 % (11.6-14.4); White Blood Count 5.9 K/mm3 (4.8-10.8)
[2023-01-10 15:18] LABS: Hemoglobin 6.1 g/dL (11.7-13.8)
== END 2023-01-10 14:45 | disposition home or self-care (01) ==
PROVIDERS: PCP Family Medicine
DX: D64.9 Anemia, unspecified (principal)
CPT/HCPCS: 36415; 85025

== ENCOUNTER 2023-01-10 18:38 | Observation (INO) | payer MEDICARE, SELFPAY ==
[2023-01-10 19:20] LABS: Basophils Absolute Auto 0.03 K/mm3 (0.00-0.10); Basophils Percent Auto 0.5 % (0.0-1.0); Eosinophils Percent Auto 7.9 % (1.0-6.0); Hematocrit 21.4 % (35.0-42.0); Immature Granulocyte Absolute 0.01 K/mm3 (0.00-0.00); Immature Granulocyte Percent A 0.2 % (0.0-0.0); Lymphocytes Absolute Auto 0.69 K/mm3 (1.10-4.50); Mean Corpuscular Hemoglobin 23.8 pg (27.0-31.0); Mean Corpuscular Volume 84.9 fL (78.0-102.0); Mean Platelet Volume 10.6 fl (9.2-11.8); Monocytes Absolute Auto 0.75 K/mm3 (0.10-0.90); Monocytes Percent Auto 11.9 % (2.0-11.0); Neutrophils Absolute Auto 4.3 K/mm3 (1.7-7.2); Neutrophils Percent Auto 68.5 % (50.0-70.0); Platelet Count Result 195 K/mm3 (150-420); Red Blood Count 2.52 M/mm3 (4.20-5.40); Red Cell Distribution Width 21.3 % (11.6-14.4); White Blood Count 6.3 K/mm3 (4.8-10.8)
[2023-01-10 19:33] LABS: Prothrombin Time 11.3 Seconds (9.50-12.10)
[2023-01-10 19:39] LABS: Lactic Acid Reflex 2.3 mmol/L (0.4-2.0)
[2023-01-10] MEDS: SODIUM CHLORIDE 0.9% IV 1,000 ML 999 ML IV CONT (19:41)
--- NOTE | 2023-01-10 19:51 | ED.GENADULT ---
HPI - General Adult General Chief complaint: Recheck/Abnormal Lab/Rx Stated complaint: abnormal lab Time Seen by Provider: 01/10/23 18:51 History of Present Illness HPI narrative: 77yo woman h/o HFrEF, afib, CAD, rheumatoid arthritis, on clopidogrel but no anticoagulants due to chronic GI blood loss, follows with Dr. Guy of GI at [facility], presents at the urging of her GI doc for anemic labs today, Hb 6.1. Pt feels a little short of breath and fatigued. No pain, cough, fever, nausea/vomiting, or diarrhea. Last BMs for the past 2 days were normal. Related Data Home Medications Medication Instructions Recorded Confirmed atorvastatin 40 mg tablet 40 mg PO DAILY 09/23/21 12/08/22 clopidogrel 75 mg tablet 75 mg PO DAILY 09/23/21 12/08/22 furosemide 40 mg tablet See Rx Instructions .Route .COMPLEX 08/09/22 12/08/22 clonazepam 0.5 mg tablet 0.5 mg PO DAILY 10/04/22 12/08/22 losartan 25 mg tablet 12.5 mg PO DAILY 10/04/22 12/08/22 rivaroxaban 15 mg tablet 15 mg PO DAILY 10/04/22 12/08/22 spironolactone 25 mg tablet 12.5 mg PO DAILY 10/04/22 12/08/22 Allergies Allergy/AdvReac Type Severity Reaction Status Date / Time azithromycin AdvReac Redness of Verified 11/25/22 06:27 Skin gluten AdvReac Unknown Verified 11/25/22 06:27 wheat AdvReac Unknown Verified 11/25/22 06:27 Review of Systems Review of Systems: All systems reviewed & are unremarkable except as noted in HPI and below Constitutional: Constitutional: Denies chills and Denies fever(s) ENT: Denies dizziness Cardiovascular: Cardiovascular: Denies chest pain Respiratory: Respiratory: Denies chest congestion, Denies cough, Reports dyspnea and Denies wheezing Gastrointestinal: Gastrointestinal: Denies abdominal pain [facility] Past Medical History Medical History Anxiety Celiac disease Coronary artery disease DVT (deep venous thrombosis) Gait instability GERD (gastroesophageal reflux disease) Hypertension Hypothyroidism Portal vein thrombosis Rheumatoid arthritis Surgical History Surgical History H/O shoulder surgery History of appendectomy History of History of coronary artery stent placement Family History Family History Father Cerebrovascular accident Social History Social History Smoking status: Never smoker Second hand tobacco smoke exposure: No Alcohol intake: never Drinks per week: 1 Substance use: never Substance use type: does not use Lack of Transportation: No Current Housing: I Have Housing Concerned About Future Housing: No Difficulty Paying Gas/Electric Bills: No Difficulty Paying for Meds: No Currently Unemployed: No Education: High School Diploma/GED Difficulty w/ Childcare or Family Care: No Living arrangements: with family Gender identity (if verbalized by the patient): Female Sexual Orientation (if Verbalized by the Patient): Straight or Heterosexual Spiritual care concerns: No Exam Const: General: healthy appearing, no acute distress and alert Nutritional Appearance: well nourished Orientation/consciousness: patient oriented x3 HENMT: Head: normal to inspection Mouth: Yes moist mucous membranes Eyes: Conjunctivae: conjunctivae normal Resp: Effort & Inspection: normal respiratory effort and not labored Cardio: Rate: regular rate Heart sounds: no murmurs GI: Inspection: non-distended GI Palp: Yes Soft to palpation and No Tenderness to palpation present (GI) Skin: General skin exam: normal color, no jaundice and pallor Neuro: General: patient oriented x3 and no focal motor deficits Medical Decision Making MDM Narrative Medical decision making narrative: severe anemia DDx likely chronic GI blood loss, does not appear
[2023-01-10] MEDS: FUROSEMIDE INJ 40 MG/4 ML VIAL IV PUSH (20:08)
[2023-01-10] MEDS: SODIUM CHLORIDE 0.9% IV 250 ML 30 ML IV CONT (20:30)
[2023-01-10 20:50] VITALS: BP 113/55; PULSE 68; RESP 18; TEMP 37.2; O2SAT 98
[2023-01-10 21:10] VITALS: BP 132/65; PULSE 69; RESP 18; TEMP 37.3; O2SAT 97
[2023-01-10 21:29] LABS: Appearance Urine Clear (Clear); Bilirubin Urine Negative (Negative); Blood Urine Negative (Negative); Color Urine Light Yellow (Yellow); Glucose Urine UA 3+ (Negative); Ketones Urine Negative (Negative); Leukocyte Esterase Ur 1+ LEU/UL (Negative); Nitrate Urine Negative (Negative); Protein Urine Negative (Negative); Urobilinogen Urine 0.2 mg/dL (0.2-1.0); pH Urine 6.5 (5.0-8.0)
[2023-01-10 21:34] LABS: Add Urine Microscopic? YES; RBC Urine 0-2 /hpf (0-2); Squamous Epithelial Cell Urine Rare /hpf (Few)
[2023-01-10 21:35] LABS: Bacteria Urine 2+ /hpf
--- NOTE | 2023-01-10 21:35 | PC.NURSE ---
2110: 15 minute vitals recorded. Pt tolerating blood transfusion well. No reactions noted. Infusion titrated up to 150 ml/hr.
[2023-01-10 21:54] VITALS: BP 132/65; PULSE 69; RESP 18; TEMP 37.3; O2SAT 97
[2023-01-10 22:10] VITALS: BP 131/65; PULSE 68; RESP 18; TEMP 36.9; O2SAT 94
[2023-01-10 22:17] LABS: Reflex Lactic Acid Yes or No Add Lactic
[2023-01-10 22:18] VITALS: BMI 27.1
[2023-01-10 23:09] VITALS: BP 138/78; PULSE 76; RESP 16; TEMP 36.8; O2SAT 97
--- NOTE | 2023-01-10 23:11 | ADMGEN ---
This patient, Diane Silva, was admitted to 2nd Floor Room 205-1. Patient/family oriented to hospital policies and general routines including ID bracelet, bed and alarms, pain management, procedures, bathroom and other care routines, personal items, smoking policy, room service/diet, and visiting hours. Information on how to activate the Rapid Response Team has been discussed. Patient/Family are encouraged to report perceived risks to care and to ask questions if they do not understand what they are told or what they should do.
--- NOTE | 2023-01-10 23:18 | PC.NURSE ---
Patient received one unit of blood, that was started in the ED and finished upstairs in room 205. Patient tolerated the transfusion well, vitals were completed within guidelines, and Lab was notified so that CBC could be completed in order to determine if second unit of blood needs to be transfused.
[2023-01-11] VITALS (10 sets, daily range): BP systolic 119–141; BP diastolic 49–89; PULSE 67–88; RESP 14–20; TEMP 36.3–36.9; O2SAT 93–95
[2023-01-11 00:07] LABS: Hematocrit 27.1 % (35.0-42.0); Hemoglobin 7.5 g/dL (11.7-13.8); Mean Corpuscular HGB Conc 27.7 g/dL (32.0-36.0); Mean Corpuscular Hemoglobin 24.2 pg (27.0-31.0); Mean Corpuscular Volume 87.4 fL (78.0-102.0); Mean Platelet Volume 10.6 fl (9.2-11.8); Platelet Count Result 206 K/mm3 (150-420); Red Cell Distribution Width 21.2 % (11.6-14.4); White Blood Count 8.6 K/mm3 (4.8-10.8)
[2023-01-11 00:17] LABS: Anion Gap 12 mmol/L (8-16); Blood Urea Nitrogen 14 mg/dL (7-18); Calcium 8.1 mg/dL (8.5-10.1); Carbon Dioxide 23 mmol/L (21-32); Chloride 107 mmol/L (98-108); Estimated CRCL calculation 32 ml/min; Estimated Glomerular Filt Rate 36; Glucose 143 mg/dL (70-99); Osmolality Calculated 296 mOsm/kg (285-295); Sodium 142 mmol/L (136-145)
[2023-01-11 00:25] LABS: Lactic Acid 1.5 mmol/L (0.4-2.0)
[2023-01-11] MEDS: FUROSEMIDE INJ 20 MG/2 ML VIAL IV PUSH (01:13)
[2023-01-11] MEDS: LORazepam INJ (*CRX) 2 MG/ML VIAL 0.5 MG IV PUSH (01:13)
--- NOTE | 2023-01-11 05:12 | PC.NURSE ---
Patient finished the second unit of blood at 0451. Transfusion took longer than expected due to IV in AC frequently stopping due to patient moving arm. Still completed in less than 4 hours. Patient tolerated transfusion well, with vital signs taken at times outlined by policies and procedures.
[2023-01-11 05:26] LABS: Hematocrit 28.4 % (35.0-42.0); Hemoglobin 8.1 g/dL (11.7-13.8); Mean Corpuscular HGB Conc 28.5 g/dL (32.0-36.0); Mean Corpuscular Hemoglobin 24.5 pg (27.0-31.0); Mean Corpuscular Volume 86.1 fL (78.0-102.0); Platelet Count Result 196 K/mm3 (150-420); Red Cell Distribution Width 20.4 % (11.6-14.4); White Blood Count 7.4 K/mm3 (4.8-10.8)
[2023-01-11 05:32] LABS: Anion Gap 7 mmol/L (8-16); Blood Urea Nitrogen 13 mg/dL (7-18); Calcium 8.1 mg/dL (8.5-10.1); Carbon Dioxide 26 mmol/L (21-32); Chloride 107 mmol/L (98-108); Estimated CRCL calculation 33 ml/min; Estimated Glomerular Filt Rate 38; Glucose 96 mg/dL (70-99); Osmolality Calculated 290 mOsm/kg (285-295); Potassium 3.8 mmol/L (3.5-5.1); Sodium 140 mmol/L (136-145)
--- NOTE | 2023-01-11 07:12 | PC.NURSE ---
Second blood transfusion was completed, but charting was not possible during the process. The computer was not taking PIN for second nurse verification. Charting was completed afterward with help of IT staff. Blood was started at 0139 and ended at 0451.
--- NOTE | 2023-01-11 10:11 | PM.SD2 ---
Same Day Admit/Disch: HPI History of Present Illness Chief complaint: SEVERE ANEMIA Narrative: Diane Silva is a 77 year old female who was sent to the emergency room by her primary care provider after having a positive Hemoccult stool and her security rep after having laboratories return and noting that patient had severe anemia. Upon initial laboratories patient was noted to have a hemoglobin of 6.1 with hematocrit of 21.8. Patient has a known history of celiac disease as well as GI bleed. Patient underwent cardiac ablation 2 weeks ago and has been taking Eliquis 5 mg b.i.d. since that time. Patient states that over the last few days prior to having the positive Hemoccult and anemia she was feeling very fatigued and she thought it was just secondary to the ablation she has had. Patient denies any chest pain, shortness of breath, lightheadedness, dizziness, or palpitations. Patient denies any bright red blood in her stools. Patient denies any dark tarry stools. Patient states that her stools have been normal for her and she has not noticed anything different. Patient states her only indication was she was feeling tired, but as stated previously she thought this was secondary to her ablation. Patient states she has been taking all medications without any difficulty. [facility] Past Medical History Medical History (Updated 01/10/23 @ 20:02 by Parviz Salcedo MD) Anxiety Celiac disease Coronary artery disease DVT (deep venous thrombosis) Gait instability GERD (gastroesophageal reflux disease) Hypertension Hypothyroidism Portal vein thrombosis Rheumatoid arthritis Surgical History Surgical History (Updated 01/11/23 @ 10:24 by Imani De Los Santos APRN) H/O shoulder surgery History of appendectomy History of History of cardiac radiofrequency ablation History of coronary artery stent placement Family History Family History Father Cerebrovascular accident Social History Social History Smoking status: Never smoker Second hand tobacco smoke exposure: Yes (Parents smoked; smoked, stopped at 27.) Alcohol intake: never Drinks per week: 1 Substance use: never Substance use type: does not use Lack of Transportation: No Lack of Food: Never True Current Housing: I Have Housing Concerned About Future Housing: No Difficulty Paying Gas/Electric Bills: No Difficulty Paying for Meds: No Currently Unemployed: No Education: High School Diploma/GED Difficulty w/ Childcare or Family Care: No Living arrangements: with family Gender identity (if verbalized by the patient): Female Sexual Orientation (if Verbalized by the Patient): Straight or Heterosexual Spiritual care concerns: No Same Day Admit/Disch: Med Pre-admit Medications Home Medications Medication Instructions Recorded Confirmed Type atorvastatin 40 mg tablet 40 mg PO DAILY 09/23/21 01/11/23 History clopidogrel 75 mg tablet 75 mg PO DAILY 09/23/21 01/11/23 History valacyclovir 1 gram tablet 1,000 mg PO .PRN #12 tabs 06/30/22 01/11/23 Rx sertraline 100 mg tablet See Rx Instructions .Route 07/25/22 01/11/23 Rx .COMPLEX #90 tabs furosemide 40 mg tablet See Rx Instructions .Route .COMPLEX 08/09/22 01/11/23 History pantoprazole 40 mg tablet,delayed See Rx Instructions .Route 09/08/22 01/11/23 Rx release .COMPLEX #90 tabs clonazepam 0.5 mg tablet 0.25 mg PO QHS PRN Anxiety 10/04/22 01/11/23 History losartan 25 mg tablet 12.5 mg PO DAILY 10/04/22 01/11/23 History spironolactone 25 mg tablet 12.5 mg PO DAILY 10/04/22 01/11/23 History levothyroxine 137 mcg capsule 137 mcg PO DAILY #90 caps 12/04/22 01/11/23 Rx dapagliflozin 10 mg tablet 10 mg PO DAILY #90 tabs 12/12/22 01/11/23 Rx (Farxiga) apixaban 5 mg tablet (Eliquis) 5 mg PO BID 01/11/23 01/11/23 History magnesium 500 mg tablet 1,000 mg PO BID 01/11/23
[2023-01-11] MEDS: APIXABAN 2.5 MG TABLET 5 MG BY MOUTH (11:20)
[2023-01-11] MEDS: ATORVASTATIN 40 MG TABLET PO (11:21)
[2023-01-11] MEDS: CLOPIDOGREL BISULFATE 75 MG TABLET PO (11:21)
[2023-01-11] MEDS: EMPAGLIFLOZIN 10 MG TABLET 25 MG PO (11:21)
[2023-01-11] MEDS: LOSARTAN POTASSIUM 12.5 MG TABLET PO (11:24)
[2023-01-11] MEDS: SPIRONOLACTONE 12.5 MG TABLET PO (12:07)
[2023-01-11] MEDS: SERTRALINE HCL 50 MG TABLET 100 MG PO (12:07)
[2023-01-11] MEDS: LEVOTHYROXINE SODIUM 112 MCG, LEVOTHYROXINE SODIUM 25 MCG 137 MCG PO (12:08)
--- NOTE | 2023-01-11 14:24 | PC.NURSE ---
Pt discharged home with spouse. VSS, gait steady. Tolerated blood transfusion well. Discharge instructions given to pt and spouse. Pt verbalized understanding of instructions and follow up appointments. RN took pt to the car via WC.
--- NOTE | 2023-01-16 13:23 | PC.NURSE ---
Pt states she received and understood her discharge instructions. Pt also state it was good care, everyone deserves a prabhjot .
== END 2023-01-11 14:00 | disposition home or self-care (01) ==
LOC: CHSED 20:02 → CHS2ND 20:50
PROVIDERS: Admitting Provider Internal Medicine; Emergency Provider Emergency Medicine; PCP Family Medicine; Visit Provider Internal Medicine
DX: D50.0 Iron deficiency anemia secondary to blood loss (chronic) (principal); K92.2 Gastrointestinal hemorrhage, unspecified; I48.20 Chronic atrial fibrillation, unspecified; I11.0 Hypertensive heart disease with heart failure; I50.22 Chronic systolic (congestive) heart failure; I25.10 Atherosclerotic heart disease of native coronary artery without angina pectoris; K90.0 Celiac disease; K21.9 Gastro-esophageal reflux disease without esophagitis; E03.9 Hypothyroidism, unspecified; R53.83 Other fatigue; M06.9 Rheumatoid arthritis, unspecified; Z95.5 Presence of coronary angioplasty implant and graft; F41.9 Anxiety disorder, unspecified; Z79.02 Long term (current) use of antithrombotics/antiplatelets; Z79.01 Long term (current) use of anticoagulants; Z86.718 Personal history of other venous thrombosis and embolism
CPT/HCPCS: 36415; 36430; 80048; 80053; 81001; 83605; 83735; 85025; 85027; 85610; 86850; 86900; 86901; 86920; 87077; 87086; 87088; 87186; 96361; 96374; 96375; 96376; 99285; A9270; G0378; J1940; J2060; J7030; J7050; P9016

== ENCOUNTER 2023-01-31 12:51 | Outpatient (CLI) | payer MEDICARE, SELFPAY ==
--- NOTE | ~2023-01-31 | XR_ITS ---
XR chest 2V 01/31/2023 13:16 Indication: Cough for years Procedure: 2 view chest Comparison: Comparison to multiple prior studies sequentially, with oldest reviewed study dated 09/2020. Findings: Cardiomegaly. Small right pleural effusion. Right basilar atelectasis. No edema, focal pneu monia or pneumothorax. No acute osseous abnormality. Impression: 1: Small right pleural effusion with underlying compressive atelectasis. 2: Cardiomegaly. Reviewed, dictated and finalized at location [] Impression: 1: Small right pleural effusion with underlying compressive atelectasis. 2: Cardiomegaly.
[2023-01-31 13:17] LABS: Basophils Absolute Auto 0.03 K/mm3 (0.00-0.10); Basophils Percent Auto 0.5 % (0.0-1.0); Eosinophils Absolute Auto 0.57 K/mm3 (0.02-0.50); Eosinophils Percent Auto 8.7 % (1.0-6.0); Hematocrit 29.6 % (35.0-42.0); Hemoglobin 8.6 g/dL (11.7-13.8); Immature Granulocyte Absolute 0.02 K/mm3 (0.00-0.00); Immature Granulocyte Percent A 0.3 % (0.0-0.0); Lymphocytes Absolute Auto 0.64 K/mm3 (1.10-4.50); Lymphocytes Percent Auto 9.8 % (18.0-42.0); Mean Corpuscular HGB Conc 29.1 g/dL (32.0-36.0); Mean Corpuscular Hemoglobin 23.8 pg (27.0-31.0); Mean Corpuscular Volume 81.8 fL (78.0-102.0); Mean Platelet Volume 11.2 fl (9.2-11.8); Monocytes Percent Auto 13.8 % (2.0-11.0); Neutrophils Absolute Auto 4.4 K/mm3 (1.7-7.2); Neutrophils Percent Auto 66.9 % (50.0-70.0); Platelet Count Result 214 K/mm3 (150-420); Red Blood Count 3.62 M/mm3 (4.20-5.40); Red Cell Distribution Width 20.6 % (11.6-14.4); White Blood Count 6.5 K/mm3 (4.8-10.8)
[2023-01-31 13:47] LABS: Alanine Aminotransferase 22 U/L (14-59); Albumin Level 3.3 g/dL (3.4-5.0); Alkaline Phosphatase 93 U/L (46-116); Anion Gap 10 mmol/L (8-16); Aspartate Amino Transferase 27 U/L (15-37); Bilirubin,Total 0.7 mg/dL (0.00-1.00); Blood Urea Nitrogen 12 mg/dL (7-18); Calcium 8.3 mg/dL (8.5-10.1); Carbon Dioxide 26 mmol/L (21-32); Chloride 106 mmol/L (98-108); Estimated Glomerular Filt Rate 46; Ferritin 16 ng/mL (8-252); Glucose 113 mg/dL (70-99); NT Pro B Type Natriuretic Pept 3294 pg/mL (0-450); Osmolality Calculated 294 mOsm/kg (285-295); Potassium 4.1 mmol/L (3.5-5.1); Sodium 142 mmol/L (136-145); Total Protein 6.5 g/dL (6.4-8.2)
== END 2023-01-31 12:52 | disposition home or self-care (01) ==
LOC: CHSLAB 12:53
PROVIDERS: PCP Family Medicine; Visit Provider Family Medicine
DX: D64.9 Anemia, unspecified (principal); D50.9 Iron deficiency anemia, unspecified; I50.20 Unspecified systolic (congestive) heart failure; J90 Pleural effusion, not elsewhere classified; I51.7 Cardiomegaly
CPT/HCPCS: 36415; 71046; 80053; 82728; 83880; 85025

== ENCOUNTER 2023-02-02 08:40 | Outpatient (CLI) | payer MEDICARE, SELFPAY ==
[2023-02-07 04:14] LABS: Immunoglobulin A 242 mg/dL (70-320)
[2023-02-07 10:25] LABS: Tissue Transglutaminase IgA Ab 29.1 U/mL (<15.0)
== END 2023-02-02 08:41 | disposition home or self-care (01) ==
LOC: CHSLAB 08:43
PROVIDERS: PCP Family Medicine
DX: K90.0 Celiac disease (principal)
CPT/HCPCS: 36415; 82784; 83516

== ENCOUNTER 2023-02-06 09:19 | Outpatient (CLI) | payer MEDICARE, SELFPAY ==
--- NOTE | ~2023-02-06 | CT_ITS ---
CT Scan of the Chest without Contrast: Clinical Indication: Bronchiectasis, dyspnea Technique: Contiguous sections were acquired throughout the chest without intravenous contrast. Dose reduction technique was used on this scan by utilizing automated exposure control and iterative recon struction technique. The dose-length product (DLP) was 178.28 mGy-cm. COMPARISON: 02/06/2022 Findings: There is no evidence of any significant mediastinal, hilar or axillary lymphadenopathy. Extensive cor onary artery calcifications are present.. No pericardial effusion. Small right pleural effusion is present. No left pleural effusion. Stable subcentimeter right middle lobe pulmonary nodule. There is probable scarring or atelectasis at the left lung base. Images through the upper abdomen reveal markedly atrophic right kidney. Impression: Stable right middle lobe pulmonary nodule. Probable scarring or atelectasis at the left lower lobe/left lung base. Reviewed, dictated and finalized at [facility]. Impression: Stable right middle lobe pulmonary nodule. Probable scarring or atelectasis at the left lower lobe/left lung base.
== END 2023-02-06 09:20 | disposition home or self-care (01) ==
LOC: CHSIMG 09:21
PROVIDERS: PCP Family Medicine; Visit Provider Nurse Practitioner
DX: J47.9 Bronchiectasis, uncomplicated (principal); R91.1 Solitary pulmonary nodule; R91.8 Other nonspecific abnormal finding of lung field
CPT/HCPCS: 71250

== ENCOUNTER 2023-03-13 09:35 | Outpatient (CLI) | payer MEDICARE, SELFPAY ==
[2023-03-13 09:47] LABS: Hematocrit 30.1 % (35.0-42.0); Hemoglobin 8.7 g/dL (11.7-13.8); Mean Corpuscular HGB Conc 28.9 g/dL (32.0-36.0); Mean Corpuscular Hemoglobin 22.5 pg (27.0-31.0); Mean Platelet Volume 10.3 fl (9.2-11.8); Platelet Count Result 227 K/mm3 (150-420); Red Blood Count 3.86 M/mm3 (4.20-5.40); Red Cell Distribution Width 21.6 % (11.6-14.4); White Blood Count 7.7 K/mm3 (4.8-10.8)
[2023-03-13 10:14] LABS: Band Neutrophils Percent 0 % (0-6); Basophils Percent Manual 0 % (0-1); Eosinophils Absolute Manual 1.54 K/mm3 (0.02-0.5); Eosinophils Percent Manual 20 % (1-6); Lymphocytes Percent Manual 13 % (18-44); Monocytes Absolute Manual 0.69 K/mm3 (0.1-0.90); Monocytes Percent Manual 9 % (3-9); Neutrophils Absolute Manual 4.46 K/mm3 (1.7-7.2); Neutrophils Percent Manual 58 % (46-73); Platelet Estimate Adequate (Adequate); Total Cells Counted 100
[2023-03-13 10:33] LABS: Ferritin 14 ng/mL (8-252); Iron 15 ug/dL (50-170); Percent Iron Saturation 3 % (12-57)
== END 2023-03-13 09:36 | disposition home or self-care (01) ==
PROVIDERS: PCP Family Medicine; Visit Provider Family Medicine
DX: D50.9 Iron deficiency anemia, unspecified (principal); D64.9 Anemia, unspecified
CPT/HCPCS: 36415; 82728; 83540; 83550; 85025

== ENCOUNTER 2023-03-27 12:49 | Outpatient (CLI) | payer MEDICARE, SELFPAY ==
[2023-03-27 12:59] VITALS: BMI 27.1
[2023-03-27 13:09] VITALS: BP 136/70; PULSE 72; RESP 14; TEMP 36.6; O2SAT 97
[2023-03-27] MEDS: IRON SUCROSE COMPLEX 100 MG in SODIUM CHLORIDE 0.9% IV 100 ML 200 MG IVPB (13:14)
--- NOTE | 2023-03-27 13:49 | PC.NURSE ---
Patient here for monthly Venofer infusion. Education given. No concerns voiced. Has had Venofer infusions a lot in the past. IV Venofer administered. SEE MAR. Tolerated well. Will return at 1300 next month. Safe exit of hospital per self/amb.
== END 2023-03-27 12:50 | disposition home or self-care (01) ==
PROVIDERS: PCP Family Medicine; Visit Provider Family Medicine
DX: D50.9 Iron deficiency anemia, unspecified (principal)
CPT/HCPCS: 96365; J1756

== ENCOUNTER 2023-04-10 16:55 | Outpatient (CLI) | payer MEDICARE, SELFPAY ==
[2023-04-10 17:18] LABS: Hematocrit 32.2 % (35.0-42.0); Hemoglobin 9.4 g/dL (11.7-13.8); Immature Platelet Fraction Pct 8.2 % (1.0-7.0); Mean Corpuscular HGB Conc 29.2 g/dL (32.0-36.0); Mean Corpuscular Hemoglobin 22.9 pg (27.0-31.0); Mean Corpuscular Volume 78.3 fL (78.0-102.0); Mean Platelet Volume 11.3 fl (9.2-11.8); Platelet Count Result 223 K/mm3 (150-420); Red Blood Count 4.11 M/mm3 (4.20-5.40); Red Cell Distribution Width 23.9 % (11.6-14.4); White Blood Count 9.8 K/mm3 (4.8-10.8)
[2023-04-10 17:33] LABS: Band Neutrophils Percent 0 % (0-6); Basophils Absolute Manual 0.09 K/mm3 (0-0.1); Basophils Percent Manual 1 % (0-1); Eosinophils Absolute Manual 2.84 K/mm3 (0.02-0.5); Eosinophils Percent Manual 29 % (1-6); Lymphocytes Absolute Manual 0.88 K/mm3 (1.1-4.5); Lymphocytes Percent Manual 9 % (18-44); Monocytes Absolute Manual 0.88 K/mm3 (0.1-0.90); Monocytes Percent Manual 9 % (3-9); Neutrophils Absolute Manual 5.09 K/mm3 (1.7-7.2); Neutrophils Percent Manual 52 % (46-73); Platelet Estimate Adequate (Adequate); Total Cells Counted 100
[2023-04-10 17:51] LABS: Ferritin 33 ng/mL (8-252)
== END 2023-04-10 16:56 | disposition home or self-care (01) ==
LOC: CHSLAB 16:59
PROVIDERS: PCP Family Medicine; Visit Provider Family Medicine
DX: D50.9 Iron deficiency anemia, unspecified (principal)
CPT/HCPCS: 36415; 82728; 85025; 85055

== ENCOUNTER 2023-05-08 16:16 | Outpatient (CLI) | payer MEDICARE, SELFPAY ==
[2023-05-08 17:04] LABS: Hematocrit 32.9 % (35.0-42.0); Hemoglobin 9.9 g/dL (11.7-13.8); Immature Reticulocyte Fraction 30.4 % (2.0-16.52); Mean Corpuscular HGB Conc 30.1 g/dL (32.0-36.0); Mean Corpuscular Hemoglobin 23.6 pg (27.0-31.0); Mean Corpuscular Volume 78.3 fL (78.0-102.0); Platelet Count Result 154 K/mm3 (150-420); Red Cell Distribution Width 25.6 % (11.6-14.4); Reticulocyte Hemoglobin Conten 22.2 pg (28.0-35.0); Reticulocyte Percent 1.28 % (0.50-1.50); Reticulocytes Absolute 0.05 M/mm3 (0.02-0.1); White Blood Count 5.1 K/mm3 (4.8-10.8)
[2023-05-08 17:31] LABS: Appearance Urine Slightly Cloudy (Clear); Bilirubin Urine Negative (Negative); Blood Urine Negative (Negative); Color Urine Light Yellow (Yellow); Glucose Urine UA 2+ (Negative); Ketones Urine Negative (Negative); Leukocyte Esterase Ur Negative (Negative); Nitrate Urine Positive (Negative); Protein Urine Negative (Negative); Urobilinogen Urine 0.2 mg/dL (0.2-1.0)
[2023-05-08 17:53] LABS: Add Urine Microscopic? YES; Bacteria Urine 4+ /hpf; RBC Urine None seen /hpf (0-2); Squamous Epithelial Cell Urine Rare /hpf (Few); WBC Urine None seen /hpf (0-3)
[2023-05-08 17:57] LABS: Band Neutrophils Percent 3 % (0-6); Basophils Percent Manual 0 % (0-1); Eosinophils Percent Manual 0 % (1-6); Lymphocytes Absolute Manual 1.07 K/mm3 (1.1-4.5); Lymphocytes Percent Manual 21 % (18-44); Monocytes Percent Manual 6 % (3-9); Neutrophils Absolute Manual 3.72 K/mm3 (1.7-7.2); Neutrophils Percent Manual 70 % (46-73); Platelet Estimate Adequate (Adequate); Total Cells Counted 100
[2023-05-09 11:57] LABS: Albumin Level 3.7 g/dL (3.4-5.0); Anion Gap 12 mmol/L (8-16); Blood Urea Nitrogen 22 mg/dL (7-18); Calcium 8.8 mg/dL (8.5-10.1); Carbon Dioxide 27 mmol/L (21-32); Chloride 98 mmol/L (98-108); Estimated Glomerular Filt Rate 30; Glucose 103 mg/dL (70-99); Osmolality Calculated 287 mOsm/kg (285-295); Phosphorus 2.8 mg/dL (2.6-4.7); Potassium 4.2 mmol/L (3.5-5.1); Sodium 137 mmol/L (136-145)
[2023-05-09 12:01] LABS: Hemoglobin A1C 6.2 % (<5.7)
[2023-05-09 15:30] LABS: Iron 13 ug/dL (50-170)
== END 2023-05-08 16:17 | disposition home or self-care (01) ==
LOC: CHSLAB 16:18
PROVIDERS: PCP Nurse Practitioner Family; Visit Provider Nurse Practitioner Family
DX: R42 Dizziness and giddiness (principal); R53.1 Weakness; E86.0 Dehydration; N18.9 Chronic kidney disease, unspecified; R73.03 Prediabetes
CPT/HCPCS: 36415; 80069; 81001; 83036; 83540; 85025; 85046; 87077; 87086; 87088; 87186

== ENCOUNTER 2023-05-17 10:34 | Outpatient (RCR) | payer MEDICARE, SELFPAY ==
--- NOTE | 2023-05-17 11:39 | OPREHPOC ---
Outpatient Therapy Plan of Care This is a Multidisciplinary Plan of Care that may contain components documented by all disciplines (PT, OT, and ST.) PT Problem 1 PT Problem #1 Knowledge Deficit PT Goal 1 Goal 1. independent and compliant with HEP Target Visit 3 PT Problem 2 PT Problem #2 Impaired Strength PT Goal 1 Goal 1. improve bilateral hip strength to 5/5 Target Visit 6 PT Problem 3 PT Problem #3 Impaired Functional Mobil PT Goal 1 Goal 1. tinetti to improve to 28/28 2. LAWRENCE to improve to 50/56 or better 3. 5x sit to melting furnace skimmer 10 seconds or less 4. no lateral deviations with TUG test 5. patient to complete 1500 ft in 6 minute walk test Target Visit 6
--- NOTE | 2023-05-17 11:39 | PTOPEVAL1 ---
Assessment and note entered by JT File, PT Evaluation Information Diagnosis weakness, dizziness/giddiness Onset 05/08/23 Subjective Information patient reports she is worn down due to being in the hospital 5 times in the first 6 months of this year. she reports she has been in the hospital atleast once every year since 2018. she reports she feels she has to sit down for 15 minutes or more after showering. she reports when working in the yard she is only able to work for a few minutes at a time. she reports the other day getting out of bed she was dizzy. she reports weakness is more her issue than dizziness. she reports she is tired all the time as well. Reported Pain Level Pain Score 0: Self Report Assessment PT Clinical Summary mrs. hyde presents to skilled PT services for evaluation and treatment of weakness and giddiness . she presents with no vertiog symptoms today, and no episodes of dizziness. negative anel hallpike testing for BPPV. she does display some deficits in higher level balance/functional activities per the LAWRENCE balance assessment, 5x sit to stand. she would benefit from continued skilled PT to improve her objective/functional deficits and progress towards a return to her prior level functional activity performance quality of life. Plan of Care Interventions Gait Training,Neuro Re-education,Patient/Caregiver Educati,Therapeutic Activities,Therapeutic Exercise PT Services Indicated Yes Treatment Frequency and 2x weekly for 6 visits Duration These treatments will address the objective and functional deficits as defined above. The patient will be advanced safely and appropriately in order for the patient to progress towards his/her prior level of function. Additional exercises will be introduced and as well as a comprehensive home exercise program upon discharge, if needed, ?to ensure carryover of functional gains achieved in the clinic. This treatment plan has been reviewed and agreement upon by the patient.
== END 2023-06-11 23:59 | disposition home or self-care (01) ==
LOC: CHSPT 10:34
PROVIDERS: PCP Family Medicine; Visit Provider Nurse Practitioner Family
DX: R42 Dizziness and giddiness (principal); R53.1 Weakness
CPT/HCPCS: 97110; 97112; 97116; 97161; 97530

== ENCOUNTER 2023-05-24 10:17 | Outpatient (CLI) | payer MEDICARE, SELFPAY ==
--- NOTE | ~2023-05-24 | MR_ITS ---
EXAMINATION: MR brain IAC wo con DATE: 05/24/2023 11:37 INDICATION: Chronic dizziness. New onset vision loss. Gait imbalance. TECHNIQUE: Magnetic resonance imaging (MRI) of the brain, brainstem, and internal auditory canals was performed without intravenous contrast. COMPARISON: None. FINDINGS: There is an old infarct in left frontal lobe. There is a small old infarct in right cerebel lum. There are scattered areas of nonspecific increased T2-weighted signal intensity in the cerebral white matter and camila. There is no intracranial hemorrhage, acute infarction, or abnormal intracrania l mass lesion. The ventricles are normal in size. The orbits are normal. There is mucosal thickening in the paranasal sinuses. The internal auditory canals and inner ears and tympanic cavities are blanka l. There is a small left mastoid effusion. IMPRESSION: 1. 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 2. Mild nonspecific cerebral white matter disease and pontine disease, which likely represents chroni c small vessel ischemic disease. Reviewed, dictated and finalized at location A. IMPRESSION: 1. 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 2. Mild nonspecific cerebral white matter disease and pontine disease, which ramy tee represents chronic small vessel ischemic disease.
== END 2023-05-24 10:18 | disposition home or self-care (01) ==
LOC: CHSIMG 10:18
PROVIDERS: PCP Family Medicine; Visit Provider Nurse Practitioner Family
DX: H53.9 Unspecified visual disturbance (principal); H55.00 Unspecified nystagmus; R42 Dizziness and giddiness; R53.1 Weakness; Z86.73 Personal history of transient ischemic attack (TIA), and cerebral infarction without residual deficits; R90.82 White matter disease, unspecified
CPT/HCPCS: 70551

== ENCOUNTER 2023-05-27 19:46 | Outpatient (CLI) | payer MEDICARE, SELFPAY ==
[2023-05-27 20:03] LABS: Appearance Urine Clear (Clear); Bilirubin Urine Negative (Negative); Blood Urine Negative (Negative); Color Urine Light Yellow (Yellow); Glucose Urine UA 2+ (Negative); Ketones Urine Negative (Negative); Leukocyte Esterase Ur Negative (Negative); Nitrate Urine Negative (Negative); Protein Urine Negative (Negative); Urobilinogen Urine 0.2 mg/dL (0.2-1.0); pH Urine 6.5 (5.0-8.0)
[2023-05-27 20:06] LABS: Add Urine Microscopic? YES; Bacteria Urine Trace /hpf; RBC Urine None seen /hpf (0-2); Squamous Epithelial Cell Urine Few /hpf (Few); WBC Urine None seen /hpf (0-3)
== END 2023-05-27 19:47 | disposition home or self-care (01) ==
LOC: CHSLAB 19:47
PROVIDERS: PCP Nurse Practitioner Family; Visit Provider Nurse Practitioner Family
DX: N39.46 Mixed incontinence (principal); N39.0 Urinary tract infection, site not specified; R82.90 Unspecified abnormal findings in urine
CPT/HCPCS: 81001; 87086

== ENCOUNTER 2023-06-12 12:19 | Outpatient (CLI) | payer MEDICARE, SELFPAY ==
[2023-06-12 12:35] LABS: Hematocrit 38.8 % (35.0-42.0); Hemoglobin 11.5 g/dL (11.7-13.8)
== END 2023-06-12 12:20 | disposition home or self-care (01) ==
LOC: CHSLAB 12:21
PROVIDERS: PCP Family Medicine; Visit Provider Family Medicine
DX: D64.9 Anemia, unspecified (principal)
CPT/HCPCS: 36415; 85014; 85018

== ENCOUNTER 2023-07-24 11:41 | Outpatient (CLI) | payer MEDICARE, SELFPAY ==
--- NOTE | ~2023-07-24 | XR_ITS ---
Bilateral Hands Technique: Bilateral PA, oblique, and lateral views, and ball-catcher's view were obtained. Clinical History: Rheumatoid arthritis Findings: No acute fracture or dislocation is seen. There is advanced probable erosive osteoarthritis involving the right second, third, fourth, and fifth PIP joints, and the left third, fourth, and fif th PIP joints. There is moderate erosive osteoarthritis of the left fifth DIP joint.. There is mild t o moderate osteoarthritis of the right first CMC joint. Soft tissues are unremarkable. 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 Mild to moderate osteoarthritis of the right first CMC joint. Reviewed, dictated and finalized at location M. O DIVISION OFFICER Impression: Findings most consistent with severe erosive osteoarthritis involving the bilat eral PIP joints, as detailed above. Mild to moderate osteoarthritis of the right first CMC joint.
[2023-07-24 12:09] LABS: Hematocrit 36.3 % (35.0-42.0); Hemoglobin 11.1 g/dL (11.7-13.8); Mean Corpuscular HGB Conc 30.6 g/dL (32.0-36.0); Mean Corpuscular Hemoglobin 27.3 pg (27.0-31.0); Mean Corpuscular Volume 89.2 fL (78.0-102.0); Mean Platelet Volume 11.2 fl (9.2-11.8); Platelet Count Result 166 K/mm3 (150-420); Red Blood Count 4.07 M/mm3 (4.20-5.40); Red Cell Distribution Width 22.7 % (11.6-14.4)
[2023-07-24 12:30] LABS: Band Neutrophils Percent 0 % (0-6); Basophils Absolute Manual 0.05 K/mm3 (0-0.1); Basophils Percent Manual 1 % (0-1); Eosinophils Absolute Manual 1.15 K/mm3 (0.02-0.5); Eosinophils Percent Manual 23 % (1-6); Lymphocytes Absolute Manual 0.35 K/mm3 (1.1-4.5); Lymphocytes Percent Manual 7 % (18-44); Metamyelocytes Percent 0 %; Monocytes Percent Manual 6 % (3-9); Myelocytes Percent 0 %; Neutrophils Absolute Manual 3.15 K/mm3 (1.7-7.2); Neutrophils Percent Manual 63 % (46-73); Platelet Estimate Adequate (Adequate); Total Cells Counted 100
[2023-07-24 12:34] LABS: Rheumatoid Factor Screen Negative (Negative)
[2023-07-24 12:41] LABS: Alanine Aminotransferase 22 U/L (14-59); Albumin Level 3.5 g/dL (3.4-5.0); Alkaline Phosphatase 81 U/L (46-116); Anion Gap 7 mmol/L (8-16); Aspartate Amino Transferase 18 U/L (15-37); Bilirubin,Total 0.9 mg/dL (0.00-1.00); Blood Urea Nitrogen 12 mg/dL (7-18); CRP 1.1 mg/dL (0.0-0.9); Calcium 8.4 mg/dL (8.5-10.1); Carbon Dioxide 28 mmol/L (21-32); Chloride 103 mmol/L (98-108); Estimated Glomerular Filt Rate 42; Ferritin 18 ng/mL (8-252); Glucose 140 mg/dL (70-99); Iron 23 ug/dL (50-170); Osmolality Calculated 287 mOsm/kg (285-295); Percent Iron Saturation 6 % (12-57); Potassium 3.3 mmol/L (3.5-5.1); Sodium 138 mmol/L (136-145); Total Protein 6.7 g/dL (6.4-8.2)
[2023-07-27 10:00] LABS: ANA Cascade Screen Negative (Negative)
[2023-07-28 20:00] LABS: HLA B27 Negative (Negative)
== END 2023-07-24 11:42 | disposition home or self-care (01) ==
LOC: CHSLAB 11:43
PROVIDERS: PCP Family Medicine; Visit Provider Family Medicine
DX: D50.9 Iron deficiency anemia, unspecified (principal); M06.9 Rheumatoid arthritis, unspecified; Z72.51 High risk heterosexual behavior; M19.042 Primary osteoarthritis, left hand; M19.041 Primary osteoarthritis, right hand; M79.642 Pain in left hand; M79.641 Pain in right hand; Z52.008 Unspecified donor, other blood
CPT/HCPCS: 36415; 73130; 80053; 82728; 83516; 83540; 83550; 85025; 86038; 86140; 86225; 86235; 86430; 86812

== ENCOUNTER 2023-08-20 15:30 | Emergency (ER) | payer MEDICARE, SELFPAY ==
--- NOTE | ~2023-08-20 | CT_ITS ---
EXAMINATION: CT brain wo con DATE: 08/20/2023 16:41 INDICATION: Left-sided head injury post fall TECHNIQUE: Computed tomography (CT) of the head was performed without intravenous contrast. Sagittal and coronal reconstructions were performed. The mA was adjusted according to patient size. Iterative reconstruction technique was employed. The dose-length product was 681.00 mGy-cm. COMPARISON: brain MR dated 05/24/[address] dated 03/13/2020 FINDINGS: No fracture. Again seen is a moderate-sized region of encephalomalacia in the left frontal lobe consi stent with old infarct. Additional small focus of encephalomalacia in the posterior right parietal lo be. No acute intracranial hemorrhage, acute infarction or abnormal extra axial fluid collection. Ther e is mild scattered white matter hypoattenuation consistent with chronic small vessel ischemic diseas e. Ventricles are normal and symmetric. No mass/mass effect. Mild to moderate mucosal thickening in t he bilateral maxillary, left sphenoid and right ethmoid sinuses. The orbits and mastoid air cells are normal. IMPRESSION: 1. No fracture or acute intracranial process. 2. Old infarcts in the left frontal lobe, right parietal lobe. Reviewed, dictated and finalized at location A. SHOVEL OPERATOR
--- NOTE | ~2023-08-20 | CT_ITS ---
EXAMINATION: CT cervical spine wo con DATE: 08/20/2023 16:42 INDICATION: TECHNIQUE: Computed tomography (CT) of the cervical spine was performed without intravenous contrast. Automated exposure control and iterative reconstruction technique were employed. The dose-length pro duct was 277.03 mGy-cm. COMPARISON: None FINDINGS: Mild reversal of the normal cervical lordosis. There is 12 degrees cervicothoracic dextroscoliosis wi th mild compensatory lumbar levoscoliosis. Schmorl's nodes at both sides of the C4-C5 disc space. Dangelo tebral body heights are normal. No acute fracture. There is moderate to severe disc height loss at C6 -C7, moderate disc height loss at C5-C6 and mild disc height loss at C2-C3 and C4-C5. Posterior disc osteophyte complex resulting in mild central canal stenosis at C6-C7. Severe uncovertebral osteoarthr itis on the right at C5-C6. Mild to moderate uncovertebral osteoarthritis at the remainder of the cer vical spine with lower cervical predominant. There is severe facet osteoarthritis on the right at C2- C3 and C3-C4 with multilevel mild to moderate facet osteoarthritis and remainder of the cervical spin e. There is mild to moderate neural foraminal stenosis on the right at C3-C4. There is mild neural fr om stenosis at many of the remaining bilateral cervical levels. Small amount of atherosclerotic calci fic a cyst at the bilateral carotid bulbs. Cervical soft tissues are otherwise unremarkable. Expirato ry phase of imaging with mild atelectasis in the visualized upper lungs. IMPRESSION: 1. Moderate to severe lower cervical predominant spondylosis. No acute osseous abnormality. Reviewed, dictated and finalized at location A. DIRECTOR
--- NOTE | ~2023-08-20 | XR_ITS ---
EXAMINATION: XR hand RT min 3V, XR hand LT min 3V DATE: 08/20/2023 16:43 INDICATION: Bilateral hand pain post fall TECHNIQUE: 1. Posteroanterior, oblique and lateral views of the left hand were obtained. 2. Posteroanterior, oblique and lateral views of the right hand were obtained. COMPARISON: None. FINDINGS: Old healed fracture deformity of the distal left radius resulting in 2014 degrees dorsal tilt of the distal articular surface. No acute fracture. Severe polyarticular osteoarthritis at multiple bilatera l interphalangeal joints with proximal interphalangeal joint predominance. Several of these demonstra te associated central erosions with gullwing configuration consistent with erosive osteoarthritis. Th ere is secondary minimal to mild ulnar angulation at the right second and third and left second and f ifth proximal interphalangeal joints. Additional moderate osteoarthritis at the bilateral triscaphe a nd first carpal metacarpal joints and many of the remaining interphalangeal joints with additional mo derate osteoarthritis at the left wrist and right midcarpal joints. IMPRESSION: 1. No acute osseous abnormality at the bilateral hands or wrists. 2. 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 Reviewed, dictated and finalized at location A. WRITING EXPERT IMPRESSION: 1. No acute osseous abnormality at the bilateral hands or wrists. 2. 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
[2023-08-20 15:30] VITALS: BP 142/81; PULSE 68; RESP 18; TEMP 36.6; O2SAT 98
[2023-08-20 15:48] VITALS: BP 142/81; PULSE 68; RESP 18; TEMP 36.6; O2SAT 98
--- NOTE | 2023-08-20 16:14 | ED.FALL ---
HPI - Fall General Chief Complaint: Fall Stated Complaint: fall; head injury and left hand pain Time Seen by Provider: 08/20/23 15:46 History of Present Illness HPI Narrative: Patient is a 77-year-old female with history PE, CAD, arrhythmia here with fall. She notes she was going down some slick stairs at the grocery store when she slipped falling onto her left side. She notes that she did hit her head and her glasses seemed to puncture the side of her head. She denies LOC. She is on eliquis. She additionally notes some pain in her bilateral hands which she believes she used to fall to the ground. She has been able to ambulate without difficulty since the fall. Denies hip pain. She is unsure of when her last tetanus shot was. She denies any prodromal chest pain, shortness of breath, light headedness. Related Data Home Medications Medication Instructions Recorded Confirmed spironolactone 25 mg tablet 12.5 mg PO DAILY 10/04/22 08/20/23 apixaban 5 mg tablet (Eliquis) 5 mg PO BID 01/11/23 08/20/23 Allergies Allergy/AdvReac Type Severity Reaction Status Date / Time azithromycin AdvReac Redness of Verified 08/20/23 15:43 Skin gluten AdvReac Unknown Verified 08/20/23 15:43 wheat AdvReac Unknown Verified 08/20/23 15:43 Review of Systems Review of Systems: All systems reviewed & are unremarkable except as noted in HPI and below PMFSH Past Medical History Medical History Anxiety Celiac disease Coronary artery disease DVT (deep venous thrombosis) Gait instability GERD (gastroesophageal reflux disease) Hypertension Hypothyroidism Portal vein thrombosis Rheumatoid arthritis Surgical History Surgical History H/O shoulder surgery History of appendectomy History of History of cardiac radiofrequency ablation History of coronary artery stent placement Family History Family History Father Cerebrovascular accident Social History Social History Smoking status: Never smoker Second hand tobacco smoke exposure: Yes (Parents smoked; smoked, stopped at 28.) Alcohol intake: never Drinks per week: 1 Substance use: never Substance use type: does not use Lack of Transportation: No Lack of Food: Never True Current Housing: I Have Housing Concerned About Future Housing: No Difficulty Paying Gas/Electric Bills: No Difficulty Paying for Meds: No Currently Unemployed: No Education: High School Diploma/GED Difficulty w/ Childcare or Family Care: No Living arrangements: with family Gender identity (if verbalized by the patient): Female Sexual Orientation (if Verbalized by the Patient): Straight or Heterosexual Spiritual care concerns: No Exam Narrative: GENERAL: Well-appearing, well-nourished, and in no acute distress. HEAD: Normocephalic, 0.5 cm stellate wound to the left restorationism, no active bleeding. EYES: PERRLA and EOMI. ENT: Nares clear. Mucous membranes moist. NECK: Supple. CHEST: Clear to auscultation. No respiratory distress. HEART: Regular rate and rhythm. Normal peripheral pulses. ABDOMEN: Soft, nontender, nondistended. EXTREMITIES: Normal range of motion. No edema. No clavicular tenderness, no shoulder tenderness, no arm tenderness, elbow tenderness or wrist tenderness. No snuff box tenderness present bilaterally. Bruising over the thenar eminence bilaterally, no swelling, no deformities. No cervical, thoracic or lumbar tenderness. Lower extremities atraumatic. SKIN: Warm, dry, no rash. NEURO: No focal deficits. Alert and oriented x3. PSYCH: Normal mood and affect. Course Course Emergency Course: Chart review performed. Patient here after a fall, on Eliquis. Triage vitals normal. Patient seen and evaluated, head injury, will do CTs an
[2023-08-20] MEDS: TETANUS,DIPHTHERIA,AC PERTUSSIS ADULT 0.5 ML (ADACEL) IM (17:21)
[2023-08-20] MEDS: LIDO 1%/EPINEPHRINE 1:100,000 20 ML VIAL INFILTRATE (17:21)
[2023-08-20 17:50] VITALS: BP 134/85; PULSE 66; RESP 16; O2SAT 98
== END 2023-08-20 17:50 | disposition home or self-care (01) ==
PROVIDERS: Emergency Provider Student in an Organized Health Care Education/Training Program; PCP Family Medicine
DX: S01.81XA Laceration without foreign body of other part of head, initial encounter (principal); I25.10 Atherosclerotic heart disease of native coronary artery without angina pectoris; I10 Essential (primary) hypertension; E03.9 Hypothyroidism, unspecified; M06.9 Rheumatoid arthritis, unspecified; Z79.01 Long term (current) use of anticoagulants; Z79.899 Other long term (current) drug therapy; Z23 Encounter for immunization; Z86.711 Personal history of pulmonary embolism; W10.8XXA Fall (on) (from) other stairs and steps, initial encounter; Y92.512 Supermarket, store or market as the place of occurrence of the external cause
CPT/HCPCS: 12011; 70450; 72125; 73130; 90471; 90715; 99284

== ENCOUNTER 2023-08-30 08:43 | Outpatient (CLI) | payer MEDICARE, SELFPAY ==
[2023-08-30 09:04] LABS: Hematocrit 40.6 % (35.0-42.0); Hemoglobin 12.3 g/dL (11.7-13.8); Mean Corpuscular HGB Conc 30.3 g/dL (32.0-36.0); Mean Corpuscular Hemoglobin 28.6 pg (27.0-31.0); Mean Corpuscular Volume 94.4 fL (78.0-102.0); Platelet Count Result 196 K/mm3 (150-420); Red Cell Distribution Width 24.4 % (11.6-14.4); White Blood Count 5.2 K/mm3 (4.8-10.8)
[2023-08-30 09:28] LABS: Band Neutrophils Percent 0 % (0-6); Basophils Absolute Manual 0.05 K/mm3 (0-0.1); Basophils Percent Manual 1 % (0-1); Eosinophils Percent Manual 29 % (1-6); Lymphocytes Absolute Manual 0.62 K/mm3 (1.1-4.5); Lymphocytes Percent Manual 12 % (18-44); Monocytes Absolute Manual 0.72 K/mm3 (0.1-0.90); Monocytes Percent Manual 14 % (3-9); Neutrophils Absolute Manual 2.28 K/mm3 (1.7-7.2); Neutrophils Percent Manual 44 % (46-73); Platelet Estimate Adequate (Adequate); Total Cells Counted 100
[2023-08-30 10:03] LABS: Ferritin 328 ng/mL (8-252); Iron 57 ug/dL (50-170); Percent Iron Saturation 17 % (12-57)
== END 2023-08-30 08:44 | disposition home or self-care (01) ==
LOC: CHSLAB 08:45
PROVIDERS: PCP Family Medicine; Visit Provider Family Medicine
DX: D50.9 Iron deficiency anemia, unspecified (principal); D64.9 Anemia, unspecified
CPT/HCPCS: 36415; 82728; 83540; 83550; 85025

== ENCOUNTER 2023-09-01 23:04 | Emergency (ER) | payer MEDICARE, SELFPAY ==
--- NOTE | ~2023-09-01 | CT_ITS ---
EXAMINATION: CT brain wo con DATE: 09/02/2023 00:04 INDICATION: Dizziness. Weakness. TECHNIQUE: Computed tomography (CT) of the head was performed without intravenous contrast. The mA wa s adjusted according to patient size. Iterative reconstruction technique was employed. Exam dose: 60 5.33 mGy-cm total exam DLP. COMPARISON: 08/30/2023 CT brain FINDINGS: Right vertebral artery and bilateral carotid siphon and supraclinoid internal carotid arter y calcifications. Chronic left frontal cerebrovascular accident. There is moderate cerebral and cerebellar volume loss. No intracranial mass lesion or hemorrhage, midline shift or mass effect. No subdural or epidural miles kaitlin is detected. The mastoid air cells are normally developed and aerated. There is patchy soft tissue thickening of t he ethmoid air cells bilaterally. Minimal mucoperiosteal thickening primarily along the anterior wall s of the sphenoid sinuses. No skull fracture or bone destruction. IMPRESSION: Old left frontal infarct; no acute intracranial finding Reviewed, dictated and finalized at [facility]. Reviewed, dictated and finalized at location A. REP
--- NOTE | 2023-09-01 23:05 | ECG_ITS ---
Measurements Intervals [place] Rate: 69 P: 54 [place]: 187 QRS: 13 QRSD: 100 T: 61 QT: 445 QTc: 479 Interpretive Statements SINUS RHYTHM FREQUENT VENTRICULAR PREMATURE COMPLEXES BORDERLINE ST-T WAVE ABNORMALITY- HIGH LATERAL LEADS BASELINE ARTIFACT- I, II, III, AVR, AVL, AVF, V1-V6 ABNORMAL ECG COMPARED TO ECG 11/07/2022 10:31:35 SINUS RHYTHM NOW PRESENT VENTRICULAR ECTOPICS NOW PRESENT Electronically Signed On 09-03-2023 6:54:29 [employer] by Andres Mcdonald D.O.
[2023-09-01 23:09] VITALS: BP 146/89; PULSE 72; RESP 20; TEMP 36.9; O2SAT 96
--- NOTE | 2023-09-01 23:26 | ED.WEAKNESS ---
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 patient was wobbly when she walked to her car prior to coming to the ER. -- Patient had a fall on 08/20/2023 for which he presented to the ER. The patient had a CT of the head and the C-spine which did not show any acute findings. No history of recent falls. the patient was going to fall down when a held and prevented her from hitting the ground. the patient had company in the evening following which she when she attempted to drink water she was not able to get her cup to her lips. No increase in abdominal distension. No hematemesis or melena. No chest pain or shortness of breath. MD Complaint: generalized weakness Onset (ago): hour(s) ( 3.5 hours ago) Location: generalized Relieving factors: none Exacerbating factors: none Associated symptoms: denies other symptoms Related Data Home Medications Medication Instructions Recorded Confirmed spironolactone 25 mg tablet 12.5 mg PO DAILY 10/04/22 09/01/23 apixaban 5 mg tablet (Eliquis) 5 mg PO BID 01/11/23 09/01/23 ascorbic acid (vitamin C) 500 mg 500 mg PO BID 09/02/23 09/02/23 capsule clonazepam 0.5 mg tablet 0.5 mg PO HS 09/02/23 09/02/23 magnesium 2 tablet PO BID 09/02/23 09/02/23 octreotide acetate 50 mcg/mL (1 50 mcg subcut BID 09/02/23 09/02/23 mL) injection syringe Allergies Allergy/AdvReac Type Severity Reaction Status Date / Time azithromycin AdvReac Redness of Verified 09/01/23 23:53 Skin gluten AdvReac Unknown Verified 09/01/23 23:53 wheat AdvReac Unknown Verified 09/01/23 23:53 Review of Systems Review of Systems: All systems reviewed & are unremarkable except as noted in HPI and below Constitutional: Constitutional: Reports as per HPI, Reports no additional constitutional complaints and Reports weakness Eyes: Eyes: Reports as per HPI and Reports no additional eye complaints ENT: Reports system reviewed and no additional complaints, except as documented and Reports as per HPI Cardiovascular: Cardiovascular: Reports as per HPI and Reports no additional cardiovascular complaints Respiratory: Respiratory: Reports as per HPI and Reports no additional respiratory complaints Gastrointestinal: Gastrointestinal: Reports as per HPI and Reports no additional gastrointestinal complaints Genitourinary: Genitourinary: Reports no additional female genitourinary complaints Musculoskeletal: Musculoskeletal: Reports no additional musculoskeletal complaints and Reports as per HPI Integumentary/Breasts: Skin/Breast: Reports system reviewed and no additional complaints, except as docu and Reports as per HPI Neurologic: Reports system reviewed and no additional complaints, except as documented, Reports dizziness and Reports weakness Psychiatric: Psychiatric: Reports anxiety Endocrine: Endocrine: Reports no additional endocrine complaints and Reports as per HPI Hematologic/Lymphatic: Hematologic/Lymphatic: Reports no additional hematologic/lymphatic complaints and Reports as per HPI Allergic/Immunologic: Allergic/Immunologic: Reports no additional allergic/immunologic complaints and Reports as per HPI [facility] Past Medical History Medical History Anxiety Celiac disease Coronar
[2023-09-01 23:37] LABS: Glucose Point of Care 164 mg/dl (65-105)
--- NOTE | 2023-09-01 23:40 | PC.NURSE ---
Pt reports fall last week and was evaluated and treated with follow up yesterday at [facility] for suture removal. notes tonight after company left he noted she was dizzy and generally weak with having difficulty drinking water like she couldn't find her mouth. Pt is on Eliquis for PE/DVT history and Octreotide for hx of GI bleeding. Pt does have some dried blood noted to Vahid leslie pt states has had rash to legs that has been treated by derm and will be following with film flat inspector for same but states she now has one in her nose that she was picking. She denies epistaxis otherwise. Denies recent dark stools, melena, or sang blood in stools. PT reports hx of CVA but I didn't know I had them they did a CT and said 'you've had a couple of strokes' but I never knew I had them. For NIH stroke card pt misread once sentence and when repeating phrases instead of [address] pt states [address] then states [address].
[2023-09-01 23:50] VITALS: BP 130/76; PULSE 69
[2023-09-01 23:52] VITALS: BP 126/72; PULSE 72
[2023-09-01 23:56] LABS: Basophils Absolute Auto 0.03 K/mm3 (0.00-0.10); Basophils Percent Auto 0.4 % (0.0-1.0); Eosinophils Absolute Auto 1.38 K/mm3 (0.02-0.50); Eosinophils Percent Auto 19.7 % (1.0-6.0); Hematocrit 40.5 % (35.0-42.0); Hemoglobin 12.3 g/dL (11.7-13.8); Immature Granulocyte Absolute 0.01 K/mm3 (0.00-0.00); Immature Granulocyte Percent A 0.1 % (0.0-0.0); Lymphocytes Absolute Auto 1.19 K/mm3 (1.10-4.50); Mean Corpuscular HGB Conc 30.4 g/dL (32.0-36.0); Mean Corpuscular Hemoglobin 28.8 pg (27.0-31.0); Mean Corpuscular Volume 94.8 fL (78.0-102.0); Monocytes Absolute Auto 0.72 K/mm3 (0.10-0.90); Monocytes Percent Auto 10.3 % (2.0-11.0); Neutrophils Absolute Auto 3.7 K/mm3 (1.7-7.2); Neutrophils Percent Auto 52.5 % (50.0-70.0); Platelet Count Result 194 K/mm3 (150-420); Red Blood Count 4.27 M/mm3 (4.20-5.40); Red Cell Distribution Width 24.5 % (11.6-14.4)
[2023-09-01 23:58] LABS: Alanine Aminotransferase 38 U/L (14-59); Albumin Level 3.7 g/dL (3.4-5.0); Alkaline Phosphatase 92 U/L (46-116); Anion Gap 9 mmol/L (8-16); Aspartate Amino Transferase 29 U/L (15-37); Bilirubin,Total 0.8 mg/dL (0.00-1.00); Blood Urea Nitrogen 23 mg/dL (7-18); Calcium 8.4 mg/dL (8.5-10.1); Carbon Dioxide 27 mmol/L (21-32); Chloride 102 mmol/L (98-108); Estimated CRCL calculation 30 ml/min; Estimated Glomerular Filt Rate 33; Glucose 50 mg/dL (70-99); Osmolality Calculated 286 mOsm/kg (285-295); Potassium 4.3 mmol/L (3.5-5.1); Sodium 138 mmol/L (136-145); Total Protein 7.7 g/dL (6.4-8.2)
[2023-09-02 00:01] LABS: Partial Thromboplastin Time 30.9 SEC (23.90-30.70); Prothrombin Time 10.9 Seconds (9.50-12.10)
[2023-09-02 00:02] LABS: Troponin I 25.7 ng/L (0.00-60.4)
[2023-09-02 00:03] LABS: Lipase 30 U/L (16-77)
[2023-09-02 00:16] VITALS: BP 129/76; PULSE 69; RESP 19; O2SAT 96
[2023-09-02 00:24] LABS: Thyroid Stimulating Hormone 2.71 uIU/mL (0.36-3.74)
[2023-09-02 00:31] VITALS: BP 133/87; PULSE 75; RESP 14; O2SAT 100
--- NOTE | 2023-09-02 00:35 | PC.NURSE ---
This RN's glucometer readings not crossing to chart. FSBS 94 mg/dL. Pt given cottage cheese, apple sauce, and milk as allowed by ERP.
--- NOTE | 2023-09-02 00:56 | PC.NURSE ---
In addition to previous note at this time, upon returning to room found 1/2 of round yellow tablet in stretcher that identified as the half-tablet of Clonazepam that she was given tonight, so she did not receive her nighttime dose. states he also was going to give her only half of her regular dose tonight due to the symptoms she was having but she had apparently missed her mouth. Tablet given back to spouse.
--- NOTE | 2023-09-02 00:56 | PC.NURSE ---
Pt ambulatory with assist x 1 to restroom. PT does tend to drift to right side when ambulation. No stumbling noted. Pt returned to room and placed back on monitors. Spouse remains at bedside. Warm blanket provided. No distress noted. No change in pt condition noted.
[2023-09-02 00:58] LABS: Glucose 105 mg/dL (70-99)
[2023-09-02 01:01] VITALS: BP 129/71; PULSE 68; RESP 19; O2SAT 97
[2023-09-02 01:04] LABS: Appearance Urine Clear (Clear); Bilirubin Urine Negative (Negative); Blood Urine Negative (Negative); Color Urine Light Yellow (Yellow); Glucose Urine UA 2+ (Negative); Ketones Urine Negative (Negative); Leukocyte Esterase Ur Negative LEU/UL (Negative); Nitrate Urine Negative (Negative); Protein Urine Negative (Negative); Specific Grav Ur 1.015 (1.010-1.020); Urobilinogen Urine 0.2 mg/dL (0.2-1.0); pH Urine 6.5 (5.0-8.0)
[2023-09-02 01:10] LABS: Add Urine Microscopic? YES; Bacteria Urine Trace /hpf; RBC Urine None seen /hpf (0-2); Squamous Epithelial Cell Urine Rare /hpf (Few); WBC Urine None seen /hpf (0-3)
[2023-09-02 01:13] LABS: Glucose Point of Care 94 mg/dl (65-105)
[2023-09-02 01:16] VITALS: BP 125/83; PULSE 80; RESP 15; TEMP 36.3; O2SAT 98
--- NOTE | 2023-09-02 01:17 | PC.NURSE ---
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 Rate controlled.
== END 2023-09-02 01:35 | disposition home or self-care (01) ==
PROVIDERS: Emergency Provider Internal Medicine Critical Care Medicine; PCP Family Medicine
DX: R26.89 Other abnormalities of gait and mobility (principal); R42 Dizziness and giddiness; I13.0 Hypertensive heart and chronic kidney disease with heart failure and stage 1 through stage 4 chronic kidney disease, or unspecified chronic kidney disease; E11.22 Type 2 diabetes mellitus with diabetic chronic kidney disease; N18.9 Chronic kidney disease, unspecified; I50.9 Heart failure, unspecified; I25.10 Atherosclerotic heart disease of native coronary artery without angina pectoris; E03.9 Hypothyroidism, unspecified; M06.9 Rheumatoid arthritis, unspecified; Z86.73 Personal history of transient ischemic attack (TIA), and cerebral infarction without residual deficits; Z86.718 Personal history of other venous thrombosis and embolism
CPT/HCPCS: 36415; 70450; 80053; 81001; 82947; 82948; 83690; 84443; 84484; 85025; 85610; 85730; 93005; 99284

== ENCOUNTER 2023-09-07 14:58 | Outpatient (CLI) | payer MEDICARE, SELFPAY ==
[2023-09-07 16:07] LABS: NT Pro B Type Natriuretic Pept 3070 pg/mL (0-450)
== END 2023-09-07 14:59 | disposition home or self-care (01) ==
LOC: CHSLAB 15:02
PROVIDERS: PCP Family Medicine; Visit Provider Family Medicine
DX: I50.20 Unspecified systolic (congestive) heart failure (principal)
CPT/HCPCS: 36415; 83880

== ENCOUNTER 2023-09-27 13:45 | Outpatient (CLI) | payer MEDICARE, SELFPAY ==
[2023-09-27 14:33] LABS: SARS-CoV-2 RNA PCR Negative (Negative)
[2023-09-27 14:36] LABS: Influenza A QL RT-PCR Negative (Negative); Influenza B QL RT-PCR Negative (Negative); RSV RNA, RT-PCR Negative (Negative)
== END 2023-09-27 13:46 | disposition home or self-care (01) ==
LOC: CHSLAB 13:46
PROVIDERS: PCP Family Medicine; Visit Provider Family Medicine
DX: J18.9 Pneumonia, unspecified organism (principal); Z20.822 Contact with and (suspected) exposure to COVID-19
CPT/HCPCS: 87637

== ENCOUNTER 2023-10-01 14:56 | Outpatient (CLI) | payer MEDICARE, SELFPAY ==
[2023-10-01 15:46] LABS: SARS-CoV-2 RNA PCR Negative (Negative)
[2023-10-01 15:52] LABS: Influenza A QL RT-PCR Negative (Negative); Influenza B QL RT-PCR Negative (Negative); RSV RNA, RT-PCR Positive (Negative)
== END 2023-10-01 14:57 | disposition home or self-care (01) ==
LOC: CHSLAB 14:57
PROVIDERS: PCP Family Medicine; Visit Provider Family Medicine
DX: J18.9 Pneumonia, unspecified organism (principal); Z20.822 Contact with and (suspected) exposure to COVID-19
CPT/HCPCS: 87637

== ENCOUNTER 2023-10-30 06:49 | Emergency (ER) | payer MEDICARE, SELFPAY ==
[2023-10-30] VITALS (34 sets, daily range): BP systolic 147–178; BP diastolic 71–98; PULSE 55–84; RESP 10–31; TEMP 36.7; O2SAT 93–100
--- NOTE | ~2023-10-30 | XR_ITS ---
Portable chest x-ray Comparison: 01/31/2023 Clinical History: Chest pain Findings: Questionable minimal bibasilar haziness. No pleural effusion or pneumothorax. Cardiomedia stinal silhouette is stable. Bones and soft tissues are unremarkable. Impression: Possible COPD and minimal bibasilar interstitial prominence. Correlate for minimal bibasilar pulmonar y edema. Reviewed, dictated and finalized at location . Impression: Possible COPD and minimal bibasilar interstitial prominence. Correlate for mini mal bibasilar pulmonary edema.
--- NOTE | ~2023-10-30 | CT_ITS ---
EXAMINATION: CTA chest abdomen pelvis DATE: 10/30/2023 08:29 INDICATION: Chest pain for 3 hours. TECHNIQUE: Computed tomography angiography (CTA) of the chest, abdomen and pelvis was performed with 100 mL Omnipaque-350 intravenous contrast timed to evaluate the pulmonary arteries. Coronal maximum i ntensity projection 3D-reconstructions were created by the technologist. Automated exposure control a nd iterative reconstruction technique were employed. Exam dose: 603.93 mGy-cm total exam DLP. COMPARISON: 10/30/2023 portable AP chest at 0737 hours 02/06/2023 CT chest FINDINGS: There is diagnostic contrast enhancement of the pulmonary arteries and no evidence of pulmo nary embolism. There is atherosclerotic calcification of the thoracic aorta, great vessels and extensive coronary ar kiran calcification. There is cardiomegaly. No pericardial or pleural effusion. No hilar or mediastinal mass lesion or lymphadenopathy. Mild discoid atelectasis or scarring at the lung bases of both lower lobes. Indeterminate 5 mm nodule of the middle lobe (series 4 image 68). There is borderline gallbladder wall thickening. No pericholecystic fluid or fat stranding. No bile duct or pancreatic duct dilatation. No hepatic, splenic, pancreatic or adrenal space-occupying mass lesion is evident. There is severe atrophy of the right kidney and multiple small nonobstructing right renal calculi. Th ere is prominent multifocal left renal scarring. There is an approximately 3.5 cm upper pole left kaylin al cyst. No left renal or ureteral calculus or left hydroureteronephrosis. There is a small bubble of gas in the urinary bladder. No bladder wall thickening is noted. Retroverted uterus. There is atherosclerotic calcification but normal caliber of the abdominal aorta. No intraperitoneal or retroperitoneal or pelvic mass lesion or adenopathy or ascites. There is a prominent amount of fecal material throughout the colon. No bowel obstruction, bowel wall thickening, pneumatosis or intraperitoneal free air is detected. Moderately severe degenerative disc disease at L5-S1. IMPRESSION: Indeterminate 5 mm nodule of middle lobe line by lateral lower lobe discoid atelectasis or scarring Cardiomegaly Extensive coronary artery calcifications. Aortic and great vessel atherosclerosis No thoracic or abdominal aortic aneurysm or dissection No evidence of pulmonary embolism Severe right renal atrophy Right nephrolithiasis Multifocal prominent left renal scarring 3.5 mm left renal cyst Prominent amount of fecal material in the colon Reviewed, dictated and finalized at Location A. Reviewed, dictated and finalized at location L. IMPRESSION: Indeterminate 5 mm nodule of middle lobe line by lateral lower lob e discoid atelectasis or scarring Cardiomegaly Extensive coronary artery calcifications. Aortic and great vessel atheroscleros is No thoracic or abdominal aortic aneurysm or dissection No evidence of pulmonary embolism Severe right renal atrophy Right nephrolithiasis Multifocal prominent left renal scarring 3.5 mm left renal cyst Prominent amount of fecal material in the colon
--- NOTE | 2023-10-30 07:13 | ECG_ITS ---
Measurements Intervals [place] Rate: 55 P: [place]: 0 QRS: 29 QRSD: 104 T: 223 QT: 484 QTc: 467 Interpretive Statements ECTOPIC ATRIAL BRADYCARDIA NONSPECIFIC T-WAVE ABNORMALITY- INF/LAT LEADS PROLONGED QT INTERVAL ABNORMAL ECG COMPARED TO ECG 09/01/2023 23:10:59 PROLONGED QT INTERVAL NOW PRESENT Electronically Signed On 10-30-2023 8:43:58 CDT by Andres Mcdonald D.O.
--- NOTE | 2023-10-30 07:15 | ED.GENADULT ---
HPI - General Adult General Chief complaint: Chest Pain Stated complaint: Chest pain Time Seen by Provider: 10/30/23 06:59 History of Present Illness HPI narrative: this is a 78-year-old female with multiple medical comorbidities presenting with chest pain. Patient's she woke up 450 she went to use the restroom. She said she developed achy chest pain across her chest that radiates to both of arms/head/back. pain 710 intensity constant. She has never had this before was alleviating exacerbating factors. Is not associated with diaphoresis chills. She does note slight shortness of breath this is well documented review of her previous office visits. no lower extremity edema. Patient typically takes Tylenol for arthritis pain but has not taken any today. Patient says he has she has seen specialists for various complaints still she is a difficult patient due to highly atypical presentations. MD complaint: Chest pain Related Data Home Medications Medication Instructions Recorded Confirmed apixaban 5 mg tablet (Eliquis) 5 mg PO BID 01/11/23 10/30/23 ascorbic acid (vitamin C) 500 mg 500 mg PO BID 09/02/23 10/30/23 capsule clonazepam 0.5 mg tablet 0.5 mg PO HS 09/02/23 10/30/23 magnesium 2 tablet PO BID 09/02/23 10/30/23 octreotide acetate 50 mcg/mL (1 50 mcg subcut BID 09/02/23 10/30/23 mL) injection syringe Allergies Allergy/AdvReac Type Severity Reaction Status Date / Time azithromycin AdvReac Redness of Verified 10/30/23 07:24 Skin gluten AdvReac Unknown Verified 10/30/23 07:24 wheat AdvReac Unknown Verified 10/30/23 07:24 [facility] Past Medical History Medical History Anxiety Celiac disease Coronary artery disease DVT (deep venous thrombosis) Gait instability GERD (gastroesophageal reflux disease) Hypertension Hypothyroidism Portal vein thrombosis Rheumatoid arthritis Surgical History Surgical History H/O shoulder surgery History of appendectomy History of History of cardiac radiofrequency ablation History of coronary artery stent placement Family History Family History Father Cerebrovascular accident Social History Social History Smoking status: Never smoker Second hand tobacco smoke exposure: Yes (Parents smoked; smoked, stopped at 28.) Alcohol intake: never Drinks per week: 1 Substance use: never Substance use type: does not use Lack of Transportation: No Lack of Food: Never True Current Housing: I Have Housing Concerned About Future Housing: No Difficulty Paying Gas/Electric Bills: No Difficulty Paying for Meds: No Currently Unemployed: No Education: High School Diploma/GED Difficulty w/ Childcare or Family Care: No Living arrangements: with family Gender identity (if verbalized by the patient): Female Sexual Orientation (if Verbalized by the Patient): Straight or Heterosexual Spiritual care concerns: No Exam Narrative: APPEARANCE: No apparent distress.A&O x3 Head: atraumatic. EYES: EOMI, NOSE: Atraumatic NECK: Trachea midline RESPIRATORY: No increased rate of breathing, clear to auscultation CARDIOVASCULAR: bradycardia, equal pulses ABDOMINAL: Non-distended soft nontender MUSCULOSKELETAl: No obvious deformities , no tenderness to palpation in the areas of reported pain NEURO: Alert. Moving 4/4 extremities SKIN:: No visible skin changes in the area of reported pain. PSYCHIATRIC: Normal affect Course Vital Signs Vital signs: Vital Signs Temperature 98.0 F 10/30/23 06:56 Pulse Rate 59 L 10/30/23 06:56 Respiratory Rate 18 10/30/23 06:56 Blood Pressure 164/90 H 10/30/23 06:56 Pulse Oximetry 100 10/30/23 06:56 Oxygen Delivery Room Air 10/30/23 06:56 Temperature 98.0 F 0
[2023-10-30 07:31] LABS: Hematocrit 41.7 % (35.0-42.0); Hemoglobin 13.2 g/dL (11.7-13.8); Mean Corpuscular HGB Conc 31.7 g/dL (32-36); Mean Corpuscular Hemoglobin 31.1 pg (27.0-31.0); Mean Corpuscular Volume 98.3 fL (78.0-102.0); Platelet Count Result 182 K/mm3 (150-420); Red Blood Count 4.24 M/mm3 (4.20-5.40); Red Cell Distribution Width 21.5 % (11.6-14.4)
[2023-10-30 07:42] LABS: Band Neutrophils Percent 1 % (0-6); Eosinophils Absolute Manual 1.56 K/mm3 (0.02-0.50); Eosinophils Percent Manual 26 % (1-6); Lymphocytes Absolute Manual 0.96 K/mm3 (1.1-4.5); Lymphocytes Percent Manual 16 % (18-44); Monocytes Absolute Manual 0.42 K/mm3 (0.1-0.90); Monocytes Percent Manual 7 % (3-9); Neutrophils Absolute Manual 3.06 K/mm3 (1.7-7.2); Neutrophils Percent Manual 50 % (46-73); Platelet Estimate Adequate (Adequate); Total Cells Counted 100
[2023-10-30] MEDS: diazePAM INJ (*CRX) 10 MG/2 ML SYRINGE 5 MG IV PUSH (07:49)
[2023-10-30 07:50] LABS: Lactic Acid Reflex 1.8 mmol/L (0.4-2.0)
[2023-10-30] MEDS: ACETAMINOPHEN 500 MG TABLET 1000 MG PO (07:50)
[2023-10-30 07:55] LABS: Alanine Aminotransferase 7 U/L (14-59); Albumin Level 3.4 g/dL (3.4-5.0); Alkaline Phosphatase 107 U/L (46-116); Anion Gap 8 mmol/L (8-16); Aspartate Amino Transferase 23 U/L (15-37); Bilirubin,Total 0.7 mg/dL (0.00-1.00); Blood Urea Nitrogen 19 mg/dL (7-18); Calcium 8.8 mg/dL (8.5-10.1); Carbon Dioxide 31 mmol/L (21-32); Chloride 103 mmol/L (98-108); Estimated CRCL calculation 36 ml/min; Estimated Glomerular Filt Rate 44; Glucose 113 mg/dL (70-99); Lipase 22 U/L (16-77); Osmolality Calculated 297 mOsm/kg (285-295); Potassium 4.6 mmol/L (3.5-5.1); Sodium 142 mmol/L (136-145); Total Protein 7.1 g/dL (6.4-8.2); Troponin I 28.3 ng/L (0.00-60.4)
[2023-10-30 07:57] LABS: NT Pro B Type Natriuretic Pept 2160 pg/mL (0-450)
--- NOTE | 2023-10-30 07:58 | PC.NURSE ---
PT IS LYING ON STRETCHER TALKING WITH AT THIS TIME. NAD NOTED. PT DENIES ANY NEEDS OR COMPLAINTS. PT IS AWAITING LAB RESULTS FOR CT AT THIS TIME. WILL CONTINUE TO MONITOR.
[2023-10-30 08:05] LABS: SARS-CoV-2 RNA PCR Negative (Negative)
[2023-10-30 08:06] LABS: Influenza A QL RT-PCR Negative (Negative); Influenza B QL RT-PCR Negative (Negative); RSV RNA, RT-PCR Negative (Negative)
--- NOTE | 2023-10-30 08:50 | PC.NURSE ---
pt is currently sleeping on stretcher in exam room without distress. is at bedside. nad noted. pt is awaiting troponin redraw. will continue to monitor.
[2023-10-30 10:45] LABS: Troponin I 28.2 ng/L (0.00-60.4)
== END 2023-10-30 11:05 | disposition home or self-care (01) ==
PROVIDERS: Emergency Provider Emergency Medicine; PCP Family Medicine
DX: R07.89 Other chest pain (principal); Z86.718 Personal history of other venous thrombosis and embolism; I25.10 Atherosclerotic heart disease of native coronary artery without angina pectoris; K21.9 Gastro-esophageal reflux disease without esophagitis; I10 Essential (primary) hypertension; E03.9 Hypothyroidism, unspecified; M06.9 Rheumatoid arthritis, unspecified; Z20.822 Contact with and (suspected) exposure to COVID-19
CPT/HCPCS: 36415; 71045; 71275; 74174; 80053; 83605; 83690; 83880; 84484; 85025; 87637; 93005; 96374; 99284; J3360; Q9967

== ENCOUNTER 2023-11-26 14:18 | Outpatient (CLI) | payer MEDICARE, SELFPAY ==
[2023-11-26 15:08] LABS: Albumin Level 3.4 g/dL (3.4-5.0); Anion Gap 6 mmol/L (4-12); Blood Urea Nitrogen 23 mg/dL (7-18); Calcium 8.5 mg/dL (8.5-10.1); Carbon Dioxide 30 mmol/L (21-32); Chloride 103 mmol/L (98-108); Estimated Glomerular Filt Rate 37; Glucose 124 mg/dL (70-99); Iron 47 ug/dL (50-170); Osmolality Calculated 292 mOsm/kg (285-295); Phosphorus 3.4 mg/dL (2.6-4.7); Potassium 5.3 mmol/L (3.5-5.1); Sodium 139 mmol/L (136-145)
== END 2023-11-26 14:19 | disposition home or self-care (01) ==
PROVIDERS: Nurse Practitioner Family; PCP Family Medicine; Visit Provider Family Medicine
DX: D64.9 Anemia, unspecified (principal); Z87.448 Personal history of other diseases of urinary system; R79.89 Other specified abnormal findings of blood chemistry
CPT/HCPCS: 36415; 80069; 83036; 83540

== ENCOUNTER 2023-11-29 11:11 | Outpatient (CLI) | payer MEDICARE, SELFPAY ==
--- NOTE | 2023-11-29 11:25 | ECG_ITS ---
SEE SCANNED COPY FOR CONFIRMED REPORT MTDD
[2023-11-29 12:35] LABS: Potassium 3.9 mmol/L (3.5-5.1)
[2023-11-30 15:52] LABS: Troponin I 46.7 ng/L (0.00-60.4)
== END 2023-11-29 11:12 | disposition home or self-care (01) ==
LOC: CHSLAB 11:14
PROVIDERS: PCP Family Medicine; Visit Provider Nurse Practitioner Family
DX: E87.5 Hyperkalemia (principal); R94.31 Abnormal electrocardiogram [ECG] [EKG]
CPT/HCPCS: 36415; 84132; 84484; 93005

== ENCOUNTER 2023-12-27 11:22 | Outpatient (CLI) | payer MEDICARE, SELFPAY ==
--- NOTE | 2023-12-27 11:25 | ECG_ITS ---
SEE SCANNED COPY FOR CONFIRMED REPORT MTDD
[2023-12-27 11:49] LABS: Reticulocyte Hemoglobin Conten 35.3 pg (28.0-35.0); Reticulocyte Percent 1.19 % (0.50-1.50); Reticulocytes Absolute 0.05 M/mm3 (0.02-0.10)
[2023-12-27 11:50] LABS: Hematocrit 45.7 % (35.0-42.0); Hemoglobin 14.2 g/dL (11.7-13.8); Mean Corpuscular HGB Conc 31.1 g/dL (32-36); Mean Corpuscular Hemoglobin 32.8 pg (27.0-31.0); Mean Corpuscular Volume 105.5 fL (78.0-102.0); Mean Platelet Volume 11.9 fl (9.2-11.8); Platelet Count Result 229 K/mm3 (150-420); Red Blood Count 4.33 M/mm3 (4.20-5.40); White Blood Count 5.8 K/mm3 (4.8-10.8)
[2023-12-27 12:10] LABS: Band Neutrophils Percent 0 % (0-6); Eosinophils Absolute Manual 0.98 K/mm3 (0.02-0.50); Eosinophils Percent Manual 17 % (1-6); Lymphocytes Absolute Manual 1.16 K/mm3 (1.1-4.5); Lymphocytes Percent Manual 20 % (18-44); Monocytes Absolute Manual 0.52 K/mm3 (0.1-0.90); Monocytes Percent Manual 9 % (3-9); Neutrophils Absolute Manual 3.13 K/mm3 (1.7-7.2); Neutrophils Percent Manual 54 % (46-73); Platelet Estimate Adequate (Adequate); Total Cells Counted 100
[2023-12-27 12:40] LABS: Alanine Aminotransferase 38 U/L (14-59); Albumin Level 3.5 g/dL (3.4-5.0); Alkaline Phosphatase 106 U/L (46-116); Anion Gap 5 mmol/L (4-12); Aspartate Amino Transferase 35 U/L (15-37); Bilirubin,Total 0.5 mg/dL (0.00-1.00); Blood Urea Nitrogen 22 mg/dL (7-18); Calcium 8.8 mg/dL (8.5-10.1); Carbon Dioxide 31 mmol/L (21-32); Chloride 101 mmol/L (98-108); Estimated Glomerular Filt Rate 34; Ferritin 78 ng/mL (8-252); Free T4 Free Thyroxine 0.78 ng/dL (0.76-1.46); Glucose 167 mg/dL (70-99); Magnesium 2.4 mg/dL (1.8-2.4); NT Pro B Type Natriuretic Pept 1157 pg/mL (0-450); Osmolality Calculated 291 mOsm/kg (285-295); Sodium 137 mmol/L (136-145); Thyroid Stimulating Hormone 3.66 uIU/mL (0.36-3.74); Total Protein 6.8 g/dL (6.4-8.2)
[2023-12-27 12:55] LABS: Iron 47 ug/dL (50-170); Percent Iron Saturation 15 % (12-57)
[2023-12-29 13:29] LABS: Vitamin D 25 Hydroxy 49 ng/mL (30-100)
== END 2023-12-27 11:23 | disposition home or self-care (01) ==
LOC: CHSLAB 11:24
PROVIDERS: Nurse Practitioner Family; PCP Nurse Practitioner Family; Visit Provider Nurse Practitioner Family
DX: D64.9 Anemia, unspecified (principal); I50.20 Unspecified systolic (congestive) heart failure; R94.31 Abnormal electrocardiogram [ECG] [EKG]; Z79.899 Other long term (current) drug therapy
CPT/HCPCS: 36415; 80053; 82306; 82728; 83540; 83550; 83735; 83880; 84439; 84443; 85025; 85046; 93005

== ENCOUNTER 2024-03-12 10:37 | Outpatient (NON) | payer MEDICARE, SELFPAY | END 2024-03-12 10:38 | disposition home or self-care (01) | LOC: CHSLAB 10:39 | PROVIDERS: Visit Provider Family Medicine | DX: R35.0 Frequency of micturition (principal) | CPT/HCPCS: 87077; 87086; 87088; 87186 ==

== ENCOUNTER 2024-04-01 13:54 | Outpatient (CLI) | payer MEDICARE, SELFPAY ==
[2024-04-01 14:15] LABS: Add Urine Microscopic? YES; Appearance Urine Clear (Clear); Bilirubin Urine Negative (Negative); Blood Urine Negative (Negative); Color Urine Light Yellow (Yellow); Glucose Urine UA 1+ (Negative); Ketones Urine Negative (Negative); Leukocyte Esterase Ur 1+ (Negative); Nitrate Urine Positive (Negative); Protein Urine Negative (Negative); Specific Grav Ur 1.015 (1.010-1.020); Urobilinogen Urine 0.2 mg/dL (0.2-1.0)
[2024-04-01 14:25] LABS: RBC Urine 0-2 /hpf (0-2)
[2024-04-01 14:26] LABS: Bacteria Urine 2+ /hpf; Squamous Epithelial Cell Urine Few /hpf (Few)
== END 2024-04-01 13:55 | disposition home or self-care (01) ==
LOC: CHSLAB 13:55
PROVIDERS: PCP Family Medicine; Visit Provider Family Medicine
DX: R30.0 Dysuria (principal)
CPT/HCPCS: 81001

== ENCOUNTER 2024-05-24 18:01 | Emergency (ER) | payer MEDICARE, SELFPAY ==
--- NOTE | ~2024-05-24 | XR_ITS ---
EXAMINATION: XR chest 2V Exam Date/Time: 05/24/2024 18:30 CDT HISTORY: Fall, Rt. side chest wall pain Comparison: 10/30/2023, 01/31/2023. RESULT: Lines, tubes, and devices: Coronary stents. Lungs and pleura: Emphysematous/senescent change. Cardiomediastinal silhouette: Stable. Other: No acute osseous or upper abdominal finding. IMPRESSION: No acute cardiopulmonary process. Reviewed, dictated and finalized at location K.
--- NOTE | ~2024-05-24 | CT_ITS ---
EXAMINATION: CT brain wo con DATE: 05/24/2024 18:45 INDICATION: Head trauma, Headache . TECHNIQUE: Computed tomography (CT) of the head was performed without intravenous contrast. The mA wa s adjusted according to patient size. Iterative reconstruction technique was employed. The dose-lengt h product was 605.33 mGy-cm. COMPARISON: 09/01/2023. FINDINGS: No acute intracranial hemorrhage or extra-axial fluid collection. No hydrocephalus, mass, or herniation. No acute ischemic infarct. Unremarkable dural venous sinus attenuation. No acute osseous abnormality. Left frontal soft tissue contusion/hematoma. Mild ethmoid and sphenoid sinus mucosal thickening, the remaining aerated spaces are clear. Mild atrophy and chronic white matter change. Atherosclerotic intracranial calcification. Left carbon sequestration plant engineer ior frontal encephalomalacia. IMPRESSION: No acute intracranial process. Reviewed, dictated and finalized at location K.
--- NOTE | ~2024-05-24 | CT_ITS ---
EXAMINATION: CT facial & cervical spine wo DATE: 05/24/2024 18:47 INDICATION: Head trauma, Headache/cervical pain TECHNIQUE: Computed tomography (CT) of the maxillofacial region and cervical spine was performed with out intravenous contrast. Automated exposure control and iterative reconstruction technique were empl oyed. The dose-length product was 213.11 mGy-cm. COMPARISON: CT C-spine 08/20/2023 FINDINGS: CERVICAL: Vertebral Body Alignment: Intact. Craniocervical and atlantoaxial alignment: Moderate degenerative change. Alignment intact. Osseous structures/fracture: No evidence of a lytic or blastic process in the visualized spine. No e vidence of acute fracture. Cervical soft tissues: The paraspinal soft tissues planes are maintained. Mild biapical pleural scarr ing. Degenerative changes: No significant degenerative changes. FACE: Soft Tissues: Left frontal soft tissue swelling/hematoma. Facial bones: No acute fracture. No lytic or blastic process. Eyes: The globes are intact. The soft tissue planes of the orbits are maintained. Paranasal Sinuses: The visualized aerated spaces are clear. Foreign Bodies: No radiopaque foreign bodies. Other Findings: Dental caries. Multiple periapical lucencies. Left inferior maxillary sinus mucosal t hickening. Mild ethmoid and sphenoid mucosal thickening. IMPRESSION: No acute fracture or traumatic malalignment in the cervical spine. No acute facial bone fracture. Reviewed, dictated and finalized at location K. IMPRESSION: No acute fracture or traumatic malalignment in the cervical spine. No acute fac ial bone fracture.
[2024-05-24 18:02] VITALS: BP 127/77; PULSE 98; RESP 18; TEMP 36.6; O2SAT 100
--- NOTE | 2024-05-24 18:12 | ED.FALL ---
HPI - Fall General Chief Complaint: Fall Stated Complaint: fall Time Seen by Provider: 05/24/24 18:04 Source: patient Mode of arrival: wheelchair Limitations: no limitations History of Present Illness HPI Narrative: This is a 78-year-old female, with history DVTs on Eliquis and hypothyroidism, who presents emergency department after a fall early this morning. The patient states she was walking in her bed room when she fell striking a nightstand. She is not sure how she fell. She complains [id number] facial pain, neck pain and headache. She also complains of mild anterior chest wall pain bilaterally. She denies loss of consciousness. After significant encouragement by family members, she was convinced to seek evaluation. She denies other chest pain, shortness of breath, weakness / numbness, change/loss of vision/hearing. She has no other complaints at this time. She states she last took Eliquis yesterday. Related Data Home Medications Medication Instructions Recorded Confirmed apixaban 5 mg tablet (Eliquis) 5 mg PO BID 01/11/23 03/12/24 ascorbic acid (vitamin C) 500 mg 500 mg PO BID 09/02/23 03/12/24 capsule clonazepam 0.5 mg tablet 0.5 mg PO HS 09/02/23 03/12/24 magnesium 2 tablet PO BID 09/02/23 03/12/24 octreotide acetate 50 mcg/mL (1 50 mcg subcut BID 09/02/23 03/12/24 mL) injection syringe Allergies Allergy/AdvReac Type Severity Reaction Status Date / Time azithromycin AdvReac Redness of Verified 05/24/24 18:11 Skin gluten AdvReac Unknown Verified 05/24/24 18:11 wheat AdvReac Unknown Verified 05/24/24 18:11 Review of Systems Review of Systems: All systems reviewed & are unremarkable except as noted in HPI and below PMFSH Past Medical History Medical History Anxiety Celiac disease Coronary artery disease DVT (deep venous thrombosis) Gait instability GERD (gastroesophageal reflux disease) Hypertension Hypothyroidism Portal vein thrombosis Rheumatoid arthritis Surgical History Surgical History H/O shoulder surgery History of appendectomy History of History of cardiac radiofrequency ablation History of coronary artery stent placement Family History Family History Father Cerebrovascular accident Social History Social History Smoking status: Never smoker Second hand tobacco smoke exposure: Yes (Parents smoked; smoked, stopped at 28.) Alcohol intake: never Drinks per week: 1 Substance use: never Substance use type: does not use Lack of Transportation: No Lack of Food: Never True Current Housing: I Have Housing Concerned About Future Housing: No Difficulty Paying Gas/Electric Bills: No Difficulty Paying for Meds: No Currently Unemployed: No Education: High School Diploma/GED Difficulty w/ Childcare or Family Care: No Living arrangements: with family Gender identity (if verbalized by the patient): Female Sexual Orientation (if Verbalized by the Patient): Straight or Heterosexual Spiritual care concerns: No Exam Narrative: GENERAL: Well-developed, well-nourished, and in no acute distress. HEAD: Normocephalic, there are multiple ecchymoses noted across the face, at the left forehead, left periorbital, the right eye it maxilla, and the right jaw. There is tenderness to palpation over the inferior border the right orbit without step-off or crepitus. EYES: PERRLA and EOMI. ENT: Nares clear, no rhinorrhea or epistaxis. Mucous membranes moist. Oropharynx without tonsillar hypertrophy exudate or other lesions. Bilateral TMs pearly mcginnis nonbulging. No wound noted hematemesis NECK: Supple. mild paraspinal tenderness to palpation at the base of the cervical spine without midline spine tenderness, step-off or crep
[2024-05-24] MEDS: ACETAMINOPHEN 500 MG TABLET 1000 MG PO (18:18)
[2024-05-24 19:26] VITALS: BP 124/67; PULSE 88; RESP 18; TEMP 37; O2SAT 99
== END 2024-05-24 19:28 | disposition home or self-care (01) ==
PROVIDERS: Emergency Provider Preventive Medicine Aerospace Medicine; PCP Family Medicine
DX: S00.83XA Contusion of other part of head, initial encounter (principal); E03.9 Hypothyroidism, unspecified; I25.10 Atherosclerotic heart disease of native coronary artery without angina pectoris; I10 Essential (primary) hypertension; Z86.718 Personal history of other venous thrombosis and embolism; W18.30XA Fall on same level, unspecified, initial encounter
CPT/HCPCS: 70450; 70486; 71046; 72125; 99284

== ENCOUNTER 2024-07-17 14:57 | Outpatient (CLI) | payer MEDICARE, SELFPAY ==
[2024-07-17 16:49] LABS: Add Urine Microscopic? YES; Appearance Urine Clear (Clear); Bilirubin Urine Negative (Negative); Blood Urine Negative (Negative); Color Urine Light Yellow (Yellow); Glucose Urine UA 2+ (Negative); Ketones Urine Negative (Negative); Leukocyte Esterase Ur Trace LEU/UL (Negative); Nitrate Urine Positive (Negative); Protein Urine Negative (Negative); Urobilinogen Urine 0.2 mg/dL (0.2-1.0)
[2024-07-17 16:56] LABS: RBC Urine None seen /hpf (0-2)
[2024-07-17 16:57] LABS: Bacteria Urine 2+ /hpf; Renal Epithelial Cells Urine Few /hpf; Squamous Epithelial Cell Urine Few /hpf (Few)
== END 2024-07-17 14:58 | disposition home or self-care (01) ==
LOC: CHSLAB 14:57
PROVIDERS: PCP Family Medicine; Visit Provider Nurse Practitioner Family
DX: R30.0 Dysuria (principal); Z87.898 Personal history of other specified conditions
CPT/HCPCS: 81001; 87086; 87186

== ENCOUNTER 2024-07-30 15:13 | Outpatient (NON) | payer MEDICARE, SELFPAY ==
[2024-07-30 15:28] LABS: Add Urine Microscopic? NO; Appearance Urine Clear (Clear); Bilirubin Urine Negative (Negative); Blood Urine Negative (Negative); Color Urine Light Yellow (Yellow); Glucose Urine UA 2+ (Negative); Ketones Urine Negative (Negative); Leukocyte Esterase Ur Negative (Negative); Nitrate Urine Negative (Negative); Protein Urine Negative (Negative); Urobilinogen Urine 0.2 mg/dL (0.2-1.0); pH Urine 7.5 (5.0-8.0)
== END 2024-07-30 15:14 | disposition home or self-care (01) ==
LOC: CHSLAB 15:15
PROVIDERS: PCP Nurse Practitioner Family; Visit Provider Nurse Practitioner Family
DX: N39.0 Urinary tract infection, site not specified (principal)
CPT/HCPCS: 81003

== ENCOUNTER 2024-09-29 12:30 | Outpatient (NON) | payer MEDICARE, SELFPAY ==
[2024-09-29 12:56] LABS: Add Urine Microscopic? NO; Appearance Urine Clear (Clear); Bilirubin Urine Negative (Negative); Blood Urine Negative (Negative); Color Urine Light Yellow (Yellow); Glucose Urine UA 2+ (Negative); Ketones Urine Negative (Negative); Leukocyte Esterase Ur Negative LEU/UL (Negative); Nitrate Urine Negative (Negative); Protein Urine Negative (Negative); Urobilinogen Urine 0.2 mg/dL (0.2-1.0); pH Urine 5.5 (5.0-8.0)
--- OUTSIDE RECORDS SUMMARY | 2024-09-29 14:55 | XMS_ITS | Encounter Summary ---
Author Organization [facility] Address [address] [place] [address] Phone Care Team Providers Care Cross Roller Name Role Phone Nl-Tawny Valdes - Unavailable Unavailab Ferny Harris MD PhD Unavailable [phone] Tera Seals DO Primary Care Provider Charu Galdamez ENGINEERING SPECIALIST Unavailable [phone] Encounter Details Date Type Department Care Team (Late st Contact Info) Description 10/04/2022 Orders Only [facility] Scanning, Provider Social History Tobacco Use Types Packs/Day Years Used Date Smoking Tobacco: Never Smokeless Tobacco: Never Alcohol Use Standard Drinks/Week Comments No 0 (1 standard drink = 0.6 oz pur e alcohol) Social Connection and Isolat ion Panel [NHANES] Answer Date Recorded In a typical week, how many times do you talk on the phone with family, friends, or neighbors? More than three times a week 01/28/2021 How often do you get togethe r with friends or relatives? Never 01/28/2021 How often do you attend chur ch or adventism services? Never 01/28/2021 Do you belong to any clubs o r organizations such as adventism groups, unions, fraternal or athletic groups, or school groups? No 01/28/2021 How often do you attend meet ings of the clubs or organizations you belong to? Never 01/28/2021 Are you , , di vorced, , never , or living with a partner? 01/28/2021 AUDIT-C Answer Date Recorded Q1: How often do you have a drink containing alc ohol? Monthly or less 09/25/2022 Q2: How many drinks containi ng alcohol do you have on a typical day when you are drinking? 1 or 2 09/25/2022 Q3: How often do you have si x or more drinks on one occasion? Never 09/25/2022 Overall Financial Resource Strain (CARDIA) Answe r Date Recorded How hard is it for you to pa y for the very basics like food, housing, medical care, and heating? Not hard at all 01/28/2021 PHQ-2 Answer Date Recorded PHQ-2 Total Score (If total score is 3 or more points, staff should administer the PHQ-9) 0 09/23/2022 Hunger Vital Sign Answer Date Recorded Within the past 12 months, y ou worried that your food would run out before you got the money to buy more. Never true 01/29/20 21 Within the past 12 months, t he food you bought just didn't last and you didn't have money to get more. Never true 01/28/2021 PRAPARE - Transportation Answer Date Re corded In the past 12 months, has l ack of transportation kept you from medical appointments or from getting medications? No 01/11 In the past 12 months, has l ack of transportation kept you from meetings, work, or from getting things needed for daily living? No 01/28/2021 Housing Stability Vital Sign Answer Gerard e Recorded In the last 12 months, was t here a time when you were not able to pay the mortgage or rent on time? No 01/28/2021 In the last 12 months, how many places have you lived? 1 01/28/2021 In the last 12 months, was t here a time when you did not have a steady place to sleep or slept in a custodial (including now)? No 01/28/2021 Comments No Sex and Gender Information Value Date Recorded Sex Assigned at Not on file Legal Sex Female 6:53 AM [employer] ACC[employer] Gender Identity Not on file Sexual Orientation Not on file documented as of this encounter Plan of Treatment Not on file documented as of this encounter Procedures Procedure Name Priority Date/Time Associated Diagnosis Comments SCAN - LABS 10/04/2022 documented in this encounter Results * SCAN - LABS (10/04/2022) us Provider Scanning Edited Result - Final documented in this encounter Visit Diagnoses Not on filedocumented in this encounter Additional Health Concerns Infection Onset Date Last Indicated Resolved Time COVID: Suspected 11/11/2022 11/11/2022 11/11/2022 1:37 PM CDT documented as of this encounter Care Teams Cross Roller Relationship Specialty Start Date End Date Tera Seals DO [address] [place] [address] PCP - General Family Medicine 05/05/22 Nl-Neuromuscle, [facility] - [address] [place] [address] Referring Physician Neurology 04/18/18 Ferny Kearns MD PhD [address] [place] [address] Referring Physician Cardiology 04/21/21 Charu Galdamez, ENGINEERING SPECIALIST [id number] [facility] [place] [place] Mailstop [phone] [place] [address] [facility] Outpatient Director Of First Impressions 01/24/23 02/20/23 documented as of this encounter
--- OUTSIDE RECORDS SUMMARY | 2024-09-29 14:55 | XMS_ITS | Clinical Summary ---
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 0 Active atorvastatin (LIPITOR) 40 mg tablet Take 1 tablet (40 mg total) by mouth daily 90 tablet 3 2 Active MAGNESIUM ORAL Take 1,000 mg by mouth 2 (two) times a day Active VITAMIN A ORAL Take 1 tablet 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 Active Farxiga 10 mg tablet Take 1 tablet (10 mg total) by mouth daily 3 Active spironolactone (ALDACTONE) 25 mg tablet Take 0.5 tablets (12.5 mg total) by mouth every morning Active cetirizine (ZyrTEC) 10 mg tabletIndicatio ns:Chronic Idiopathic Urticaria Take 2 tablets (20 mg total) by mouth 2 (two) times a day 360 tablet 3 4 Active Additional Information Patient taking differently:20 mg oralDaily, Indications: Chronic Idiopathic Urticaria, Reported on 07/30/2024 montelukast (SINGULAIR) 10 mg tabletIndicatio ns:Urticaria and angioedema Take 1 tablet (10 mg total) by mouth nightly 30 tablet 11 4 Active carbidopa-levod opa (SINEMET) 10-100 mg per tablet 4 Active apixaban (Eliquis) 5 mg tablet TAKE ONE TABLET BY MOUTH TWICE A DAY 180 tablet 3 4 Active levothyroxine (SYNTHROID) 137 mcg tablet Take 1 tablet (137 mcg total) 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 4 Active ascorbic acid 500 mg tablet,chewable Take 1 tablet/chew tab (500 mg total) by mouth daily Active pantoprazole DR (PROTONIX) 40 mg EC tablet Take 1 tablet (40 mg total) by mouth daily 4 Active clonazePAM (KlonoPIN) 1 mg tablet Take 1 tablet (1 mg total) by mouth nightly 30 tablet 5 4 11/16/19 25 Active zinc gluconate 50 mg tablet Take 1 tablet (50 mg total) by mouth daily Active pyridoxine (VITAMIN B-6) 100 mg tablet Take 1 tablet (100 mg total) by mouth daily Active valACYclovir (VALTREX) 1 gram tablet as needed 4 Active benzonatate (TESSALON) 200 mg capsule 4 Active octreotide LAR (SandoSTATIN LAR Depot) 20 mg suspension,exte nded rel recon Inject 20 mg, intramuscularly, in the left or right gluteal Q28 days. Alternate gluteal injection sites 3 each 3 4 Active torsemide (DEMADEX) 20 mg tablet TAKE ONE TABLET BY MOUTH EVERY MORNING 90 tablet 3 4 Active gabapentin (NEURONTIN) 100 mg capsule TAKE TWO CAPSULES BY MOUTH BEDTIME 60 capsule 5 Active Hospital, Clinic, or Other Facility Administered Medication Ordered Dose Route Frequency Start Date End Date Status perflutren protein-a (OPTISON) 3 mL in sodium chloride 0.9% 8 mL syringe 1 - 8 mL IV Once in imaging 04/19/2023 Active Active Problems Problem Noted Date Diagnosed Date Cardiomyopathy, ischemic 03/10/2024 Angiodysplasia of gastrointestinal tract 023 Assessment & Plan (06/27/2024 3:47 PM ADMISSIONS RECRUITER): If the patient is not able to maintain her hemoglobin after getting iron with Dr. Shipman & better control of her celiac disease, a source of the anemia might be related to her angiodysplasias. We can consider going up to 30 mg on her Sandostatin LAR. CKD (chronic kidney disease) 12/13/2022 Assessment & Plan (12/13/2022 6:49 PM CDT): Baseline Cr ~1.4-1.5 -Cr at baseline SVT (supraventricular tachycardia) 12/04/2022 Assessment & Plan (12/14/2022 12:02 PM CDT): S/p ablation -Intolerant to BB with unsuccessful cardioversion -D/c amiodarone -Cont Xarelto -Telemetry -Admit for overnight observation. Okay for discharge. Follow up with EP as scheduled Arrhythmia 11/08/2022 Acute on chronic systolic (congestive) heart karlene lure 09/23/2022 AVM (arteriovenous malformation) 09/19/2022 Overview (09/24/2022): Added automatically from request for surgery [id number] Atrial fibrillation with RVR ([facility]/HCC) 3 Assessment & Plan (09/18/2022 1:45 PM ADMISSIONS RECRUITER): A fib diagnosed 08/16/2022, previously on metop (stopped d/t hallucinations ), then coreg (stopped d/t hypotension), so not on any rate control at time of admission. Given limited options for rate control w/ reduced EF and not currently anticoagulated (xarelto held for procedure), will trial metop again. - s/p IV metop 5mg x3 w/ improvement in HR to 110-120s, asymptomatic, blood pressure acceptable, per chart review HR 125 at outpatient cardiology visit - consolidated to metop 50mg BID, uptitrate as needed for goal HR <100 - continue to hold xarelto for possible EGD 2/6 - telemonitoring - K>4, mag>2 - transfuse for hgb<8 as anemia likely contributing factor for RVR - cards c/s- appreciate recs Assessment & Plan (09/17/2022 9:57 AM ADMISSIONS RECRUITER): A fib diagnosed 08/16/2022, previously on metop (stopped d/t hallucinations ), then coreg (stopped d/t hypotension), so not on any rate control at time of admission. Given limited options for rate control w/ reduced EF and not currently anticoagulated (xarelto held for procedure), will trial metop again. - s/p IV metop 5mg x3 w/ improvement in HR to 110-120s, asymptomatic, blood pressure acceptable, per chart review HR 125 at outpatient cardiology visit - consolidated to metop 50mg BID, uptitrate as needed for goal HR <100 - continue to hold xarelto for possible EGD 2/6 - telemonitoring - K>4, mag>2 - transfuse for hgb<8 as anemia likely contributing factor for RVR - cards c/s- appreciate recs Assessment & Plan (09/16/2022 10:20 AM ADMISSIONS RECRUITER): A fib diagnosed 08/16/2022, previously on metop (stopped d/t hallucinations ), then coreg (stopped d/t hypotension), so not on any rate control at time of admission. Given limited options for rate control w/ reduced EF and not currently anticoagulated (xarelto held for procedure), will trial metop again. - s/p IV metop 5mg x3 w/ improvement in HR to 110-120s, asymptomatic, blood pressure acceptable, per chart review HR 125 at outpatient cardiology visit - consolidate to metop 50mg BID, uptitrate as needed for goal HR <100 - continue to hold xarelto for possible EGD 2/6 - telemonitoring - K>4, mag>2 - transfuse for hgb<8 as anemia likely contributing factor for RVR - cards c/s- appreciate recs Assessment & Plan (09/15/2022 9:09 AM ADMISSIONS RECRUITER): A fib diagnosed 08/16/2022, previously on metop (stopped d/t hallucinations ), then coreg (stopped d/t hypotension), so not on any rate control at time of admission. Given limited options for rate control w/ reduced EF and not currently anticoagulated (xarelto held for procedure), will trial metop again. - s/p IV metop 5mg x3 w/ improvement in HR to 110-120s, asymptomatic, blood pressure acceptable, per chart review HR 125 at outpatient cardiology visit - continue metop 25mg PO q6h, uptitrate as needed for goal HR <100 - continue to hold xarelto for possible EGD 2/3 - telemonitoring - K>4, mag>2 - transfuse for hgb<8 as anemia likely contributing factor for RVR - cards c/s- appreciate recs Assessment & Plan (09/14/2022 11:08 AM ADMISSIONS RECRUITER): A fib diagnosed 08/16/2022, previously on metop (stopped d/t hallucinations ), then coreg (stopped d/t hypotension), so not on any rate control at time of admission. Given limited options for rate control w/ reduced EF and not currently anticoagulated (xarelto held for procedure), will trial metop again. - s/p IV metop 5mg x3 w/ improvement in HR to 110-120s, asymptomatic, blood pressure acceptable, per chart review HR 125 at outpatient cardiology visit - continue metop 25mg PO q6h, uptitrate as needed for goal HR <100 - continue to hold xarelto for possible EGD 2/3 - telemonitoring - K>4, mag>2 - transfuse for hgb<8 as anemia likely contributing factor for RVR - cards c/s- appreciate recs Assessment & Plan (09/13/2022 3:07 PM ADMISSIONS RECRUITER): A fib diagnosed 08/16/2022, previously on metop (stopped d/t hallucinations ), then coreg (stopped d/t hypotension), so not on any rate control at time of admission. Given limited options for rate control w/ reduced EF and not currently anticoagulated (xarelto held for procedure), will trial metop again. - s/p IV metop 5mg x3 w/ improvement in HR to 110-120s, asymptomatic, blood pressure acceptable, per chart review HR 125 at outpatient cardiology visit - start metop 12.5mg PO q6h, uptitrate as needed for goal HR <100 - continue to hold xarelto for possible EGD 2/3 - telemonitoring - K>4, mag>2 - transfuse for hgb<8 as anemia likely contributing factor for RVR Stool guaiac positive 08/08/2022 Overview (08/08/2022): Added automatically from request for surgery [id number] Anemia in other chronic diseases classified else where 02/15/2022 Depression 10/31/2021 Assessment & Plan (09/18/2022 1:45 PM ADMISSIONS RECRUITER): Continue home sertraline, klonopin Assessment & Plan (09/17/2022 9:57 AM ADMISSIONS RECRUITER): Continue home sertraline, klonopin Assessment & Plan (09/16/2022 10:20 AM ADMISSIONS RECRUITER): Continue home sertraline, klonopin Assessment & Plan (09/15/2022 9:12 AM ADMISSIONS RECRUITER): Continue home sertraline, klonopin Assessment & Plan (09/14/2022 11:08 AM ADMISSIONS RECRUITER): Continue home sertraline, klonopin Assessment & Plan (09/13/2022 3:12 PM ADMISSIONS RECRUITER): Continue home sertraline Assessment & Plan (11/01/2021 1:41 PM CDT): -Cont Clonazapam nightly and Sertraline 100 Assessment & Plan (10/31/2021 5:51 PM CDT): -Cont Clonazapam nightly and Sertraline 100 Coronary artery disease 08/18/2021 Overview (08/18/2021): Added automatically from request for surgery [id number] Assessment & Plan (12/13/2022 6:51 PM CDT): S/p LHC and PCI 08/2021: RCA and LCx, 10/2021: LAD and diagonal -Cont home Plavix 75, atorvastatin 40 + losartan 12.5 Assessment & Plan (09/18/2022 1:45 PM ADMISSIONS RECRUITER): S/p PCI 3/22 - plavix and xarelto on hold for procedure - metop as above - continue statin Assessment & Plan (09/17/2022 9:57 AM ADMISSIONS RECRUITER): S/p PCI 3/22 - plavix and xarelto on hold for procedure - metop as above - continue statin Assessment & Plan (09/16/2022 10:20 AM ADMISSIONS RECRUITER): S/p PCI 3/22 - plavix and xarelto on hold for procedure - metop as above - continue statin Assessment & Plan (09/15/2022 9:12 AM ADMISSIONS RECRUITER): S/p PCI 3/22 - plavix and xarelto on hold for procedure - metop as above - continue statin Assessment & Plan (09/14/2022 11:08 AM ADMISSIONS RECRUITER): S/p PCI 3/22 - plavix and xarelto on hold for procedure - metop as above - continue statin Assessment & Plan (09/13/2022 3:08 PM ADMISSIONS RECRUITER): S/p PCI 3/22 - plavix and xarelto on hold for procedure - metop as above - continue statin Assessment & Plan (11/01/2021 1:43 PM CDT): Patient with history of severe 3V CAD c/b ischemic cardiomyopathy, HFrEF, severe MR presented for staged PCI -s/p PCI 3/21 to LAD c/b jailed diag 1 with dissection, monitored overnight. Did not develop chest pain recurrence, stable for discharge home today -Cont ASA 81 x1 month (while on DOAC) -Cont Plavix 75 -Cont Lasix 40mg BID in AM -Per patient taking PRN coreg 6.25mg when BP elevated (autonomic instability) -s/p nitro gtt -Telemetry Assessment & Plan (10/31/2021 5:50 PM CDT): Patient with history of severe 3V CAD c/b ischemic cardiomyopathy, HFrEF, severe MR presented for staged PCI -s/p PCI to LAD c/b jailed diag 1 with dissection -Cont ASA 81 x1 month -Cont Plavix 75 -Cont Lasix 40mg BID in AM -Wean nitro gtt -Telemetry Chronic anemia 04/17/2021 Assessment & Plan (04/20/2021 9:41 AM CDT): Likely related to celiac disease - recent iron infusion - continue to monitor Assessment & Plan (04/19/2021 10:31 AM CDT): Likely related to celiac disease - recent iron infusion - continue to monitor Assessment & Plan (04/18/2021 8:41 AM CDT): Likely related to celiac disease - recent iron infusion - continue to monitor Assessment & Plan (04/17/2021 11:18 AM CDT): Likely related to celiac disease - recent iron infusion - continue to monitor Chronic systolic heart failure (CMS/HCC) 021 Overview (04/16/2021): Assessment & Plan (04/24/2024 10:09 PM CDT): Continue Losartan and follow up with cardiology Assessment & Plan (12/13/2022 6:51 PM CDT): Does not appear in acute exacerbation -TTE 09/14/2022, LVEF 30%, mildly dilated LV with mod-severely reduced global systolic function, very small pericardial effusion, hemodynamically not significant, LA is moderately dilated -Cont home Losartan 12.5, aldactone 25, farixga Assessment & Plan (09/18/2022 1:45 PM ADMISSIONS RECRUITER): EF 40%, 2/2 ischemic CM - taking lasix as needed at home - BNP elevated on admission, not clinically volume overloaded on exam - s/p 1u pRBC 2/1, will hold further IVF - s/p lasix IV 40mg x1 2/2, will hold further diuresis at this time as pt appears dry, Cr improved w/ gentle IVF, will continue to be cautious w/ IVF given reduced EF - repeat TTE w/ reduced EF, normal IVC - cards c/s- appreciate recs Assessment & Plan (09/17/2022 9:57 AM ADMISSIONS RECRUITER): EF 40%, 2/2 ischemic CM - taking lasix as needed at home - BNP elevated on admission, not clinically volume overloaded on exam - s/p 1u pRBC 2/, will hold further IVF - s/p lasix IV 40mg x1 2/2, will hold further diuresis at this time as pt appears dry, Cr improved w/ gentle IVF, will continue to be cautious w/ IVF given reduced EF - repeat TTE w/ reduced EF, normal IVC - cards c/s- appreciate recs Assessment & Plan (09/16/2022 10:20 AM ADMISSIONS RECRUITER): EF 40%, 2/2 ischemic CM - taking lasix as needed at home - BNP elevated on admission, not clinically volume overloaded on exam - s/p 1u pRBC 2/, will hold further IVF - s/p lasix IV 40mg x1 2/2, will hold further diuresis at this time as pt appears euvolemic, Cr uptrending - repeat TTE w/ reduced EF, normal IVC - cards c/s- appreciate recs Assessment & Plan (09/15/2022 9:11 AM ADMISSIONS RECRUITER): EF 40%, 2/2 ischemic CM - taking lasix as needed at home - BNP elevated on admission, not clinically volume overloaded on exam - s/p 1u pRBC 2/, will hold further IVF - s/p lasix IV 40mg x1 09/14, will hold further diuresis at this time as pt appears euvolemic, Cr uptrending - repeat TTE w/ reduced EF, normal IVC - cards c/s- appreciate recs Assessment & Plan (09/14/2022 11:08 AM ADMISSIONS RECRUITER): EF 40%, 2/2 ischemic CM - taking lasix as needed at home - BNP elevated on admission, not clinically volume overloaded on exam - s/p 1u pRBC 09/13, will hold further IVF - will give lasix IV 40mg x1 09/14 - repeat TTE - cards c/s- appreciate recs Assessment & Plan (09/13/2022 3:11 PM ADMISSIONS RECRUITER): EF 40%, 2/2 ischemic CM - taking lasix as needed at home - BNP elevated on admission, not clinically volume overloaded on exam - s/p 1u pRBC 09/13, will hold further IVF - will give lasix PRN Assessment & Plan (04/20/2021 9:43 AM CDT): Newly diagnosed LV systolic dysfunction, presented to OSH with dyspnea and lightheadedness. Echo at OSH showing LVEF 15% and severe mitral regurgitation, moderate to severe tricuspid regurgitation and dilated IVC - etiology unclear, although she notes several months history of cough treated with steroids, tessalon perles and antibiotics - CTA at OSH showing moderate sized pericardial effusion (per report) new from 03/2020 - appears comfortable upon transfer to [facility], exam improved with IV diuresis - diuresis with furosemide 40mg IVP bid for now, will likely need maintenance oral diuretic for discharge - TTE 03/19 w/ EF 23%, Gr II DD, mod to severe MR, severe TR, increased LV filling pressures - sob significantly improved - continue losartan for afterload reduction, bp remains above goal - consider adding spironolactone - holding BB - NPO after midnight for [facility] today - strict I & O, daily weights - 1500ml fluid restriction, 2g sodium diet - telemetetry Assessment & Plan (04/19/2021 10:31 AM CDT): Newly diagnosed LV systolic dysfunction, presented to OSH with dyspnea and lightheadedness. Echo at OSH showing LVEF 15% and severe mitral regurgitation, moderate to severe tricuspid regurgitation and dilated IVC - etiology unclear, although she notes several months history of cough treated with steroids, tessalon perles and antibiotics - CTA at OSH showing moderate sized pericardial effusion (per report) new from 03/2020 - appears comfortable upon transfer to [facility], exam improved with IV diuresis - diuresis with furosemide 40mg IVP bid for now, will likely need maintenance oral diuretic for discharge -sob significantly improved - continue losartan for afterload reduction, bp remains above goa - repeat echo pending - NPO after midnight for LHC in am - strict I & O, daily weights - 1500ml fluid restriction, 2g sodium diet - telemetetry Assessment & Plan (04/18/2021 8:41 AM CDT): Newly diagnosed LV systolic dysfunction, presented to OSH with dyspnea and lightheadedness. Echo at OSH showing LVEF 15% and severe mitral regurgitation, moderate to severe tricuspid regurgitation and dilated IVC - etiology unclear, although she notes several months history of cough treated with steroids, tessalon perles and antibiotics - CTA at OSH showing moderate sized pericardial effusion (per report) new from 03/2020 - appears comfortable upon transfer to [facility], exam improved with IV diuresis - diuresis with furosemide 40mg IVP bid for now, will likely need maintenance oral diuretic for discharge - continue losartan for afterload reduction - repeat echo pending - NPO after midnight for LHC in am - strict I & O, daily weights - 1500ml fluid restriction, 2g sodium diet - telemetetry Assessment & Plan (04/16/2021 11:37 AM CDT): Newly diagnosed LV systolic dysfunction, presented to OSH with dyspnea and lightheadedness. Echo at OSH showing LVEF 15% and severe mitral regurgitation, moderate to severe tricuspid regurgitation and dilated IVC - etiology unclear, although she notes several months history of cough treated with steroids, tessalon perles and antibiotics - CTA at OSH showing moderate sized pericardial effusion (per report) new from 03/2020 - appears comfortable upon transfer to [facility], warm and wet on exam - will check baseline laboratory work including pro BNP, lactate and electrolytes - diuresis with furosemide 40mg IVP bid - continue losartan for afterload reduction - repeat echo - plan for LHC +/- RHC on Sunday - strict I & O, daily weights - 1500ml fluid restriction, 2g sodium diet - telemetetry Gluten free diet 04/05/2021 Dietary counseling 04/05/2021 Iron deficiency anemia 02/17/2021 Overview (02/17/2021): Added automatically from request for surgery [id number] Assessment & Plan (06/27/2024 3:48 PM ADMISSIONS RECRUITER): Based on today's blood work she is anemic again. She has several potential reasons for this including poor control of her celiac disease based on today's tTG, exhaustion of her iron stores, chronic minor blood loss due to her small bowel angiodysplasia with incomplete control on current dosing of Sandostatin LAR, or side effect of her neupro We will forward her lab work to Dr. Shipman who can likely arrange for iron infusions As her tTG is high, we would like the patient to follow-up with our dietitian for additional education and reinforced the importance of a gluten free diet. As she is having a lot of sleep disturbance, she is encouraged to talk to her neurologist about whether the Neupro is helping or could be substituted by an alternative therapy. Some of her restless legs could be related to her iron-deficiency. Lastly if better control of her tTG does not improve anemia, we will plan to go up to 30 mg on her Sandostatin LAR. We would recommend close monitoring of her CBC and iron stores again. History of GI bleed 02/17/2021 Overview (02/17/2021): Added automatically from request for surgery [id number] Deep vein thrombosis (DVT) associated with COVID -19 09/13/2020 Assessment & Plan (09/18/2022 1:45 PM ADMISSIONS RECRUITER): Hold home xarelto for procedure as above Assessment & Plan (09/17/2022 9:57 AM ADMISSIONS RECRUITER): Hold home xarelto for procedure as above Assessment & Plan (09/16/2022 10:20 AM ADMISSIONS RECRUITER): Hold home xarelto for procedure as above Assessment & Plan (09/15/2022 9:12 AM ADMISSIONS RECRUITER): Hold home xarelto for procedure as above Assessment & Plan (09/14/2022 11:08 AM ADMISSIONS RECRUITER): Hold home xarelto for procedure as above Assessment & Plan (09/13/2022 3:13 PM ADMISSIONS RECRUITER): Hold home xarelto for procedure as above Assessment & Plan (11/01/2021 1:41 PM CDT): -Home Xarelto resumed on d/c per Cards Assessment & Plan (10/31/2021 5:47 PM CDT): -Home Xarelto on hold per Cards Assessment & Plan (04/20/2021 9:39 AM CDT): History of DVT on Xarelto - hold Xarelto for planned LHC - continue heparin drip Assessment & Plan (04/19/2021 10:28 AM CDT): History of DVT on Xarelto - hold Xarelto for planned LHC - continue heparin drip Assessment & Plan (04/18/2021 8:39 AM CDT): History of DVT on Xarelto - hold Xarelto for planned LHC - continue heparin drip Assessment & Plan (04/17/2021 11:17 AM CDT): History of DVT on Xarelto - hold Xarelto for planned LHC - continue heparin drip Assessment & Plan (04/16/2021 11:45 AM CDT): History of DVT on Xarelto - hold Xarelto for planned LHC - begin heparin drip Clostridium difficile enteritis 09/13/2020 Portal vein thrombosis 07/03/2020 Assessment & Plan (07/04/2020 11:44 AM ADMISSIONS RECRUITER): CT C/A/P 07/02 showed extensive portal venous gas with thrombosis of the portal veins, superior mesenteric vein, and splenic vein. No evidence of cirrhosis, suspect this is secondary to coagulation/vascular issue. Does have a history of prior positive lupus AC with neg cardiolopin. JAK2 mutation neg. Recent COVID coagulopathy may also be a contributing factor. - Heme c/s, rec checking lupus AC and antiphospholipid antibodies, pending. If positive lupus AC, need to see w/ heme if pt failed xeralto and would prefer pt be switched to warfarin prior to dc. Will need outpatient heme f/u for [facility]. - Switched from Xarelto to Hep gtt - OSH CT not able to be uploaded to [facility], but viewable from disc. It was a non- con CT, no ascites noted then. - Liver US with Doppler 07/03 showing complete thrombosis of the main, right and left portal vein w/ portal venous gas and large volume ascites. - GI considering CT Angio for further evaluation, possibly Sunday Leukocytosis 07/03/2020 Assessment & Plan (07/04/2020 11:28 AM ADMISSIONS RECRUITER): Unclear etiology, likely related to underlying GI issues vs UTI that was diagnosed at OSH. WBC now down trending. 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 Overview (04/29/2020): Added automatically from request for surgery [id number] Gastroesophageal reflux disease 02/11/2020 Overview (02/11/2020): Added automatically from request for surgery [id number] Assessment & Plan (06/27/2024 3:44 PM ADMISSIONS RECRUITER): The patient will continue Protonix Assessment & Plan (11/01/2021 1:41 PM CDT): -Cont home PPI Assessment & Plan (10/31/2021 5:47 PM CDT): -Cont home PPI Assessment & Plan (04/20/2021 9:37 AM CDT): Van melena, however, has chronic anemia and had IV iron infusion last week - continue PPI - follow CBC Assessment & Plan (04/19/2021 10:28 AM CDT): Denkatelyn melena, however, has chronic anemia and had IV iron infusion last week - continue PPI - follow CBC Assessment & Plan (04/18/2021 8:39 AM CDT): Denkatelyn melena, however, has chronic anemia and had IV iron infusion last week - continue PPI - follow CBC Assessment & Plan (04/17/2021 11:17 AM CDT): Van melena, however, has chronic anemia and had IV iron infusion last week - continue PPI - follow CBC Assessment & Plan (04/16/2021 11:48 AM CDT): Van melena, however, has chronic anemia and had IV iron infusion last week - continue PPI - follow CBC Assessment & Plan (07/04/2020 11:33 AM ADMISSIONS RECRUITER): - Cont PPI daily Assessment & Plan (07/03/2020 11:50 AM ADMISSIONS RECRUITER): - Cont PPI daily Assessment & Plan (07/02/2020 1:59 PM ADMISSIONS RECRUITER): - Cont PPI daily Assessment & Plan (07/01/2020 2:59 PM ADMISSIONS RECRUITER): - Cont PPI daily Assessment & Plan (06/30/2020 2:10 PM ADMISSIONS RECRUITER): - Cont PPI IV BID Assessment & Plan (06/29/2020 2:04 PM ADMISSIONS RECRUITER): - Cont PPI IV BID Assessment & Plan (06/28/2020 2:09 PM ADMISSIONS RECRUITER): - Cont PPI IV BID Assessment & Plan (06/27/2020 6:05 AM ADMISSIONS RECRUITER): Currently starting pantoprazole 40 mg IV b.i.d. pending evaluation for GI bleed. Dysphagia 02/11/2020 Overview (02/11/2020): Added automatically from request for surgery [id number] Allergic rhinitis 08/11/2019 Periodic limb movement disorder 08/11/2019 Assessment & Plan (11/01/2021 1:40 PM CDT): -Cont home Ropinirole 0.5 Assessment & Plan (10/31/2021 5:44 PM CDT): -Cont home Ropinirole 0.5 Bronchiectasis without acute exacerbation 2018 Assessment & Plan (04/24/2024 10:12 PM CDT): Flutter valve use daily Start NAC She may benefit from vest therapy in the future Assessment & Plan (07/04/2020 11:33 AM ADMISSIONS RECRUITER): History of bronchiectasis per imaging and mild obstructive pulmonary disease per PFTs with patient recently prescribed albuterol and Symbicort which she reports she does not take as she does not really have any pulmonary symptoms except for when she was recently hospitalized with COVID-19 - Chest CT 07/02 showing BL pleural effusions w/ atelectasis, and mild aspiration - Cont albuterol inhaler - Continue to monitor for now Assessment & Plan (07/03/2020 12:53 PM ADMISSIONS RECRUITER): History of bronchiectasis per imaging and mild obstructive pulmonary disease per PFTs with patient recently prescribed albuterol and Symbicort which she reports she does not take as she does not really have any pulmonary symptoms except for when she was recently hospitalized with COVID-19 - Chest CT 07/02 showing BL pleural effusions w/ atelectasis, and mild aspiration - Continue to monitor for now Assessment & Plan (07/02/2020 2:00 PM ADMISSIONS RECRUITER): History of bronchiectasis per imaging and mild obstructive pulmonary disease per PFTs with patient recently prescribed albuterol and Symbicort which she reports she does not take as she does not really have any pulmonary symptoms except for when she was recently hospitalized with COVID-19 - Continue to monitor for now Assessment & Plan (07/01/2020 3:00 PM ADMISSIONS RECRUITER): History of bronchiectasis per imaging and mild obstructive pulmonary disease per PFTs with patient recently prescribed albuterol and Symbicort which she reports she does not take as she does not really have any pulmonary symptoms except for when she was recently hospitalized with COVID-19 - Continue to monitor for now Assessment & Plan (06/30/2020 2:10 PM ADMISSIONS RECRUITER): History of bronchiectasis per imaging and mild obstructive pulmonary disease per PFTs with patient recently prescribed albuterol and Symbicort which she reports she does not take as she does not really have any pulmonary symptoms except for when she was recently hospitalized with COVID-19. - Continue to monitor for now Assessment & Plan (06/29/2020 2:04 PM ADMISSIONS RECRUITER): History of bronchiectasis per imaging and mild obstructive pulmonary disease per PFTs with patient recently prescribed albuterol and Symbicort which she reports she does not take as she does not really have any pulmonary symptoms except for when she was recently hospitalized with COVID-19. - Continue to monitor for now Assessment & Plan (06/28/2020 2:09 PM ADMISSIONS RECRUITER): History of bronchiectasis per imaging and mild obstructive pulmonary disease per PFTs with patient recently prescribed albuterol and Symbicort which she reports she does not take as she does not really have any pulmonary symptoms except for when she was recently hospitalized with COVID-19. - Continue to monitor for now Assessment & Plan (06/27/2020 6:03 AM ADMISSIONS RECRUITER): History of bronchiectasis per imaging and mild obstructive pulmonary disease per PFTs with patient recently prescribed albuterol and Symbicort which she reports she does not take as she does not really have any pulmonary symptoms except for when she was recently hospitalized with COVID-19. -continue to monitor for now. Persistent cough 07/03/2019 Assessment & Plan (04/24/2024 10:10 PM CDT): I have encouraged her to use her flutter valve daily Likely contribution from allergies and post nasal drainage Continue ceterizine and nasal spray On continuous oral anticoagulation 05/22/2019 Hereditary and idiopathic neuropathy 07/10/2018 Assessment & Plan (08/15/2019 12:53 PM ADMISSIONS RECRUITER): - 73 y.o. woman with balance problems for 8 years that began in 2011 at age 66 as a sense of unsteadiness when walking or standing. - Gait and balance: she remains subjectively unsteady and had a couple of falls, more recently. These have been when ascending steps, when walking or when standing. She has not been lightheaded. The exam is similar with reduced vibration sense, minimal limb ataxia, and mild imapirment of tandem gait. - Dx: may be normal aging. If it is cerebellar ataxia or neuropathy the symptoms have not progressed enough to establish this. - Falls: will prescribed again PT for gait and balance. B12 was checked in 11/2018 and was normal. PLAN (phrased as addressed to the patient): - Start physical therapy for gait training - Contact my office if your balance worsens Assessment & Plan (07/07/2019 11:49 AM ADMISSIONS RECRUITER): - 73 y.o. woman with balance problems for 7 years that began in 2011 at age 66 as a sense of unsteadiness when walking or standing. - Gait and balance: she remains subjectively unsteady and had a couple of falls. The exam is similar with reduced vibration sense, minimal limb ataxia, and mild imapirment of tandem gait. - Dx: may be normal aging. If it is cerebellar ataxia or neuropathy the symptoms have not progressed enough to establish this. - Falls: will prescribed again PT for gait and balance (unclear whether she had it last year). PLAN (phrased as addressed to the patient): - Start physical therapy for gait training - Contact my office if your balance worsens Esophageal abnormality 06/21/2018 Celiac disease 06/21/2018 Assessment & Plan (06/27/2024 3:45 PM ADMISSIONS RECRUITER): Unfortunately the patient's tTG is still elevated and she indicates that she is trying to eat a gluten free diet. We would like her to be more strict with her diet and likely she should follow back up with our dietitian for additional education. We will recheck tTG in 3 months Assessment & Plan (04/21/2021 12:27 PM CDT): - gluten free diet - prn imodium Assessment & Plan (04/20/2021 9:35 AM CDT): - gluten free diet - prn imodium Assessment & Plan (04/19/2021 10:28 AM CDT): - gluten free diet - prn imodium Assessment & Plan (04/18/2021 8:38 AM CDT): - gluten free diet - prn imodium Assessment & Plan (04/17/2021 11:19 AM CDT): - gluten free diet - prn imodium Assessment & Plan (04/16/2021 11:38 AM CDT): - gluten free diet - prn imodium Assessment & Plan (07/04/2020 11:31 AM ADMISSIONS RECRUITER): - GI following - TTG IgA elevated, also noted to have villous blunting of duodenum consistent with ciliac disease, GI c/w inadvertent gluten exposure vs refractory ciliac disease which could be contributing to her diarrhea. Although, pt and family report that patient has been strict with her diet. - RD c/s regarding ciliac diet Assessment & Plan (07/03/2020 11:31 AM ADMISSIONS RECRUITER): - GI following - TTG IgA elevated, also noted to have villous blunting of duodenum consistent with ciliac disease, GI is c/w inadvertent gluten exposure vs refractory ciliac disease which could be contributing to her diarrhea. Although, pt and family report that patient has been strict with her diet. - RD c/s regarding gluten and wheat free diet Assessment & Plan (07/02/2020 2:00 PM ADMISSIONS RECRUITER): - GI following - TTG IgA elevated, also noted to have villous blunting of duodenum consistent with ciliac disease, GI is c/w inadvertent gluten exposure vs refractory ciliac disease which could be contributing to her diarrhea - RD c/s regarding gluten and wheat free diet Assessment & Plan (07/01/2020 3:31 PM ADMISSIONS RECRUITER): - GI following - TTG IgA elevated, also noted to have villous blunting of duodenum consistent with ciliac disease, GI is c/w inadvertent gluten exposure vs refractory ciliac disease which could be contributing to her diarrhea - RD c/s regarding gluten and wheat free diet Assessment & Plan (06/30/2020 2:10 PM ADMISSIONS RECRUITER): Continue gluten and wheat free diet once allowed to eat pending planned procedures. - GI c/s for inpatient scopes as above Assessment & Plan (06/29/2020 2:03 PM ADMISSIONS RECRUITER): Continue gluten and wheat free diet once allowed to eat pending planned procedures. - GI c/s for inpatient scopes as above Assessment & Plan (06/28/2020 2:07 PM ADMISSIONS RECRUITER): Continue gluten and wheat free diet once allowed to eat pending planned procedures. - GI c/s for inpatient scopes as above Assessment & Plan (06/27/2020 6:03 AM ADMISSIONS RECRUITER): Continue gluten and wheat free diet once allowed to eat pending planned procedures. -GI evaluation for inpatient scopes as above Mediastinal mass 06/17/2018 Assessment & Plan (06/18/2018 10:08 AM ADMISSIONS RECRUITER): -1.5x1.2 ring-enhancing mass adjacent to the esophagus. -I d/w GI biliary - plan for EUS-guided biopsy today Assessment & Plan (06/17/2018 12:43 PM ADMISSIONS RECRUITER): -seen on OSH chest CT after review by our radiologists. They recommend standard protocol C/A/P CT with contrast to better evaluate -add on LDH Pericardial effusion 06/15/2018 Assessment & Plan (06/27/2020 6:07 AM ADMISSIONS RECRUITER): History of duodenal ulcer. Continue PPI as above. Assessment & Plan (06/18/2018 10:11 AM ADMISSIONS RECRUITER): -reported large pericardial effusion, but only small here on echo and on review of OSH CT -possibly related to mediastinal mass Assessment & Plan (06/17/2018 12:49 PM ADMISSIONS RECRUITER): -reported large pericardial effusion, but only small here on echo and on review of OSH CT -possibly related to mediastinal mass -further imaging as above. Assessment & Plan (06/16/2018 11:08 AM ADMISSIONS RECRUITER): Transferred from OSH with c/f new pericardial effusion read as significant at 8.7cm. Pt with history of inflammatory processes (possible celiac dz, possible pulm fibrosis?) and eosinophilia. Patient also p/w sepsis at OSH, making infection also on the differential. In addition, patient recently started on AC and hemorrhagic could be a possibility as well. Malignancy is also a concern especially given elevated eos and recent unrpovoked VTE. Bedside and formal TTE here show only small, hemodynamically insignificant pleural effusion. Cardiology reviewed images and did not feel consult required. Blood cultures NGTD, normal WBC ct and remained afebrile here on abx. Ehrlichia PCR pending and on Doxy pending outcome. Monitored on Telemetry Assessment & Plan (06/15/2018 5:34 AM CDT): Appears to have new pericardial effusion that is significant at 8.7cm. With the history of inflammatory processes and eosinophilia, this is certainly high on my differential. Patient also has sepsis and infection is also on the differential. In addition, patient recently started on AC and hemorrhagic could be a possibility as well. Malignancy is also a concern especially given elevated eos and recent unrpovoked VTE. -Blood cultures, ehrlichia PCR -Received Zosyn and Vanc at OSH. Will start her on Vanc and Cefe here. Start Doxy for possible ehrlichia though it is june and unlikely. Can likely peel off after ehrlichia pcr comes back -Solumedrol 1mg/kg BID for potential inflammatory nature espescially given worsening joint pain, effusion, and possible IBD on recent c-scope -Patient also has findings of possible pulmonary fibrosis - will check ERIKA, YEVGENIY, RF, CCP, Myomarker, ESR, CRP -Telemetry -Would benefit from rheumatology consult in the morning -Cardiology consulted for TTE to further evaluate effusion to r/o tamponade and would benefit from drainage for both diagnostic and therapeutic purposes. -NPO now. Polyarthralgia 05/18/2018 Assessment & Plan (07/04/2020 11:30 AM ADMISSIONS RECRUITER): History of RA, PMR and fibromyalgia followed by rheumatology Dr. Robertson and managed with methotrexate. Patient reports being out of methotrexate for 2 weeks and being unable to contact her scada engineer during this period of time. - Cont holding methotrexate, may resume at ne Assessment & Plan (07/03/2020 11:14 AM ADMISSIONS RECRUITER): History of RA, PMR and fibromyalgia followed by rheumatology Dr. Robertson and managed with methotrexate. Patient reports being out of methotrexate for 2 weeks and being unable to contact her scada engineer during this period of time. - Cont holding methotrexate in setting of ALEXANDRA, may resume at ne Assessment & Plan (07/02/2020 1:59 PM ADMISSIONS RECRUITER): History of RA, PMR and fibromyalgia followed by rheumatology Dr. Robertson and managed with methotrexate. Patient reports being out of methotrexate for 2 weeks and being unable to contact her scada engineer during this period of time. - Cont holding methotrexate in setting of ALEXANDRA, may resume at ne Assessment & Plan (07/01/2020 2:58 PM ADMISSIONS RECRUITER): History of RA, PMR and fibromyalgia followed by rheumatology Dr. Robertson and managed with methotrexate. Patient reports being out of methotrexate for 2 weeks and being unable to contact her scada engineer during this period of time. - Cont holding methotrexate in setting of ALEXANDRA, may resume at ne Assessment & Plan (06/30/2020 2:09 PM ADMISSIONS RECRUITER): History of RA, PMR and fibromyalgia followed by rheumatology Dr. Robertson and managed with methotrexate. Patient reports being out of methotrexate for 2 weeks and being unable to contact her scada engineer during this period of time. - Cont holding methotrexate in setting of ALEXANDRA - Touch base with Rheumatology regarding refills Assessment & Plan (06/29/2020 2:03 PM ADMISSIONS RECRUITER): History of RA, PMR and fibromyalgia followed by rheumatology Dr. Robertson and managed with methotrexate. Patient reports being out of methotrexate for 2 weeks and being unable to contact her scada engineer during this period of time. - Cont holding methotrexate in setting of ALEXANDRA -Touch base with Rheumatology regarding refills Assessment & Plan (06/28/2020 1:58 PM ADMISSIONS RECRUITER): History of RA, PMR and fibromyalgia followed by rheumatology Dr. Robertson and managed with methotrexate. Patient reports being out of methotrexate for 2 weeks and being unable to contact her scada engineer during this period of time. - Cont holding methotrexate in setting of ALEXANDRA -Touch base with Rheumatology regarding refills Assessment & Plan (06/27/2020 6:08 AM ADMISSIONS RECRUITER): History of RA, PMR and fibromyalgia followed by rheumatology Dr. Robertson and managed with methotrexate. Patient reports being at a methotrexate for 2 weeks and being unable to contact her scada engineer during this period of time. -given acute renal failure reported by the patient at the outside hospital, it may have actually been beneficial that she was not taking methotrexate during this time. -follow admission creatinine, continue holding methotrexate for now -touch base with Rheumatology regarding refills Assessment & Plan (06/18/2018 10:09 AM ADMISSIONS RECRUITER): -Serologic workup for underlying rheumatic disease unremarkable. No active synovitis on exam. -Largely resolved. Assessment & Plan (06/17/2018 12:45 PM ADMISSIONS RECRUITER): -Serologic workup for underlying rheumatic disease unremarkable. No active synovitis on exam. Assessment & Plan (06/16/2018 11:12 AM ADMISSIONS RECRUITER): Noted joint pains, diffusely, mainly left shoulder. Associated with acute illness and resolved with tx of PNA. Serologic workup for underlying rheumatic disease unremarkable. Moves easily and independently. GC PCR urine pending. No active synovitis on exam. Possible underlying celiac disease with hx diarrhea, elevated TTG, but only duodenitis on bowel path, no findings of celiac disease. Assessment & Plan (05/22/2018 2:54 PM CDT): Patient w/ acute onset of stiff joints w/ pain to palpation over ankles, wrists, elbows and small joints of the hands b/l. At this time patient w/o bony deformities, warmth or joint effusion. Patient notes this AM she felt stiff and was unable to move as fast as her usual. Notes pain on weight bearing felt over the b/l ankles. Notes she has never experienced this before. 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 In the setting of 1-month hx of diarrhea, unprovoked PE and recent onset of productive cough, peripheral eosinophilia stable 31%. Work-up thus far: ERIKA (1:80, H), anti-dsDNA (<1, N) ANCA (P), PR3 (N), MPO (N), RF (11, N), anti- mitochondrial antibodies (N). Acute arthralgias highly responsive to NSAIDs. Patient remains on PRN Ibuprofen for pain. -will CTM sxs -PRN NSAIDs for acute pain Hyperlipidemia 05/17/2018 Assessment & Plan (05/17/2018 2:07 AM CDT): Patient previously on statin therapy, but self-discontinued. Would likely be beneficial given history of stroke. Diarrhea of presumed infectious origin 8 Assessment & Plan (07/07/2020 4:12 PM ADMISSIONS RECRUITER): Hx chronic diarrhea, possible celiac, initially bloody, now without blood. Possibly d/t portal vein thrombosis and venous ischemia noted on CT C/A/P 07/02. S/p EGD/colonoscopy no bleeding noted, showing chronic gastritis and duodenitis. bcx no growth, urine cx no growth, C diff & stool cx neg, fecal calprotectin normal. TTG elevated, but reports being compliant w/ celiac diet. Her diarrhea has been improving (without imodium). - GI private service c/s following. - Imodium PRN. Assessment & Plan (07/04/2020 11:25 AM ADMISSIONS RECRUITER): Hx of chronic diarrhea in setting of celiac disease. P/w acute worsening diarrhea and associated dark blood in her stool. Also with abdominal bloating and various episodes of nonbloody emesis. Transfered here for GI evaluation. OSH C. diff and infectious stool studies negative. Hgb stable, diarrhea improving. - GI c/s - s/p EGD/C-scope 06/30 without bleeding source, biopsies pending. Diarrhea thought to be d/t ciliac disease, although pt and family report compliance with ciliac diet. Findings of possible venous ischemia on CT are likely contributing to her symptoms. - Checked Zinc (low), vitamin D (low, started on supplement), copper (normal), selenium (normal), thiamine, vitamin A & E pending per GI recs - C diff neg, stool cx NGTD - CTM, transfuse for hemoglobin <7 Assessment & Plan (07/03/2020 12:57 PM ADMISSIONS RECRUITER): Hx of chronic diarrhea in setting of celiac disease although with acute worsening recently and associated dark blood mixed in with her stool. Also with abdominal bloating and various episodes of nonbloody emesis resulting in acute renal failure at presentation to the OSH. Transfered here for GI evaluation. Concern for lower GI bleed. OSH C. diff and infectious stool studies negative. 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 Also with abdominal bloating and various episodes of nonbloody emesis resulting in acute renal failure at presentation to the OSH. Transfered here for GI evaluation. Concern for lower GI bleed. OSH C. diff and infectious stool studies negative. - GI c/s - s/p EGD/C-scope 06/30 without bleeding source - Hgb stable, cont monitoring CBC daily - Transfuse for hemoglobin <7 - CT enterography recommended by GI to evaluate for chron's, but pt unable to tolerate drinking contrast required for the study - GI is c/w possible small bowel malignancy and recommended doing a SBFT, radiology felt that this study wound not be helpful in identifying malignancy and recommended a CT A/P w/ contrast instead (if unable to obtain CTE or MRE given that patient is unable to tolerate oral contrast). Will proceed w/ CT A/P w/ contrast. - Will also check thiamine, zinc, copper, selenium, vitamin A, D, & E per GI recs Assessment & Plan (07/01/2020 3:08 PM ADMISSIONS RECRUITER): Hx of chronic diarrhea in setting of celiac disease although with acute worsening recently and associated dark blood mixed in with her stool. Also with abdominal bloating and various episodes of nonbloody emesis resulting in acute renal failure at presentation to the OSH. Transfered here for GI evaluation. Concern for lower GI bleed. OSH C. diff and infectious stool studies negative. 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 Also with abdominal bloating and various episodes of nonbloody emesis resulting in acute renal failure at presentation to the OSH. Transfered here for GI evaluation. Concern for lower GI bleed. OSH C. diff and infectious stool studies negative. - GI c/s w/ plans for an EGD/C-scope 06/30 - Unable to complete full bowel prep overnight but GI will proceed with EGD/C-scope - Trend CBC - Cont holding Xarelto - IV PPI BID - Transfuse for hemoglobin <7 or 8 if actively bleeding, consent signed - Will need CT angio to evaluate for chron's per GI recs - pt is not willing to try drinking anymore contrast at this time, will discuss this further with GI after EGD/C-scope Assessment & Plan (06/29/2020 1:59 PM ADMISSIONS RECRUITER): Hx of chronic diarrhea in setting of celiac disease although with acute worsening recently and associated dark blood mixed in with her stool. Also with abdominal bloating and various episodes of nonbloody emesis resulting in acute renal failure at presentation to the OSH. Transfered here for GI evaluation. Concern for lower GI bleed. OSH C. diff and infectious stool studies negative. - Unable to complete full bowel prep overnight to this morning, will continue with bowel prep tonight, if unable to tolerate will need NG tube - GI c/s w/ plans for an EGD/C-scope 06/30 - Trend CBC - Cont holding Xarelto - Clear liquid diet, NPO after midnight - IV PPI BID - Transfuse for hemoglobin <7 or 8 if actively bleeding, consent signed Assessment & Plan (06/28/2020 2:14 PM ADMISSIONS RECRUITER): Hx of chronic diarrhea in setting of celiac disease although with acute worsening recently and associated dark blood mixed in with her stool. Also with abdominal bloating and various episodes of nonbloody emesis resulting in acute renal failure at presentation to the outside hospital. Transfered here for GI evaluation. Concern for lower GI bleed. OSH C. diff and infectious stool studies negative. HGB stable at 10.5. - GI c/s w/ plans for an EGD/C-scope 06/29 - Trend CBC - Cont holding Xarelto - Clear liquid diet, NPO after midnight - IV PPI BID - Transfuse for hemoglobin <7 or 8 if actively bleeding, consent signed Assessment & Plan (06/27/2020 6:14 AM ADMISSIONS RECRUITER): Patient with chronic diarrhea in setting of celiac disease although with acute worsening recently and associated dark blood mixed in with her stool. Also with abdominal bloating and various episodes of nonbloody emesis resulting in acute renal failure at presentation to the outside hospital. Transfered here for GI evaluation. Concern for lower GI bleed. Outside hospital C diff and infectious stool studies negative. -plan for GI consultation in the morning -will upload outside hospital imaging for radiology over-read -obtain admission labs, CBC, coags, anti Xa level -continue holding Xarelto -PIV x2 -clear liquid diet for now which he has been able to tolerate -IV PPI b.i.d. -transfuse for hemoglobin less than 7 or 8 if actively bleeding, consent signed Assessment & Plan (06/18/2018 10:10 AM ADMISSIONS RECRUITER): Resolved with gluten-free diet, although biopsies weren't consistent with celiac Assessment & Plan (06/17/2018 12:45 PM ADMISSIONS RECRUITER): Resolved with gluten-free diet Assessment & Plan (06/16/2018 11:00 AM ADMISSIONS RECRUITER): Resolved. Assessment & Plan (06/15/2018 5:37 AM CDT): Resolved. Assessment & Plan (05/22/2018 12:02 AM CDT): Appreciate GI recs, plan for prep on 05/21 and scope on 05/22 Assessment & Plan (05/22/2018 2:54 PM CDT): Patient endorses 1 month of continuous watery diarrhea, 8-12 bowel movements per day, associated with bloating, but no bloody, floating stools, nausea, vomiting, tenesmus or abdominal pain. The diarrhea wakes her up from sleep. Has previously had a similar episode in August that self resolved. Denies recent travel, changes to her diet, sick contacts, immunosuppression, trips to lakes or swimming pools. States she is compliant with a gluten free diet in the setting of celiac disease. Patient notes celiac presenting sxs consisted of post-prandial abdominal distension and recurrent abdominal pain. No hx of diarrhea or changes in stool caliber, color, odor or frequency during celiac sxs. On arrival patient endorsed strict adherence to celiac diet. Patient was previously admitted at OSH for hypotension and rehydration, CT scan at that time showed thickened gallbladder wall without evidence of cholecystitis. Patient without right upper quadrant pain on exam, negative Henriquez sign. Denies flushing. Patient previously worked up for infectious causes at OSH with C-dif, Shiga toxin, Salmonella, Stool O&P, Campylobacter negative.ESR slightly elevated however within upper limit of normal, CRP markedly elevated to >150 HIV -, TSH within the upper limits of normal (patient on levothyroxine) Stool osmoles 322, Fecal leukocytes 0 Stool electrolytes notable for fecal Na 35 and fecal K 27. This translates to a stool osmolal gap of 198 mOsm/kg. These results make secretory diarrhea etiologies such as Cookie-Long/VIPoma/Carcinoid very unlikely. Stool O&P w/o parasites specifically Giardia or cryptosporidium Loperamide 2mg QID PRN Patient now s/o Endoscopy and colonoscopy notable for duodenal bulb non bleeding ulcer and friable mucosa noted at the terminal ileum and rect-sigmoid c/g celiac flare vs. Mild IBD. Biopsies were taken of terminal ileum, all 3 colonic segments and recto-sigmoid colon F/u on gastric biopsies TTG, IgA elevated to 250 units/mL making celiac flare likely Nutrition evaluated patient and uncovered inadvertent gluten intake. Patient educated on proper handling of foods and equipments and further education on gluten-free choices History of pulmonary embolism 05/17/2018 Assessment & Plan (06/18/2018 10:10 AM ADMISSIONS RECRUITER): -cont therapeutic Lovenox (holding dose for procedure today) Assessment & Plan (06/17/2018 12:47 PM ADMISSIONS RECRUITER): -cont therapeutic Lovenox Assessment & Plan (06/15/2018 5:37 AM CDT): On Lovenox at home. -Will hold lovenox at this time given possibility for hemorrhagic component to effusion and possible need for drain. Assessment & Plan (05/22/2018 12:03 AM CDT): INR down to <2 today, started on Hep gtt, will hold on AM of 05/22 for scope Heme consulted for elevated INR, will discuss anticoagulation options post scope Assessment & Plan (05/23/2018 1:36 PM CDT): Patient admitted to outside hospital 05/04/18, found to have DVT and pulmonary embolism. At that time, she was started on warfarin with Lovenox bridge. DVT was unprovoked, no recent prolonged immobilization, no known cancer. Patient is up-to-date on colon cancer, breast cancer screening. INR on admission >9.0 without signs of bleeding, will hold warfarin at this time and check INR daily. INR remained >9 for several days. Patient now s/p IV Vitamin K w/ appropriate response in INR down to 1.37. Was transitioned to heparin gtt s/p procedure Per hematology recommendations transitioned patient Lovenox 1mg/kg SQ BID for PE tx. Patient will be discharged on this regimen. Chronic diarrhea 11/06/2017 Umbilical hernia 11/06/2017 Overactive bladder 08/01/2017 Assessment & Plan (11/01/2021 1:40 PM CDT): -Cont oxybutynin 10 Assessment & Plan (10/31/2021 5:45 PM CDT): -Cont oxybutynin 10 Assessment & Plan (04/20/2021 9:35 AM CDT): - continue oxybutynin Assessment & Plan (04/19/2021 10:28 AM CDT): - continue oxybutynin Assessment & Plan (04/17/2021 11:19 AM CDT): - continue oxybutynin Assessment & Plan (04/16/2021 11:40 AM CDT): - continue oxybutynin Assessment & Plan (07/04/2020 11:29 AM ADMISSIONS RECRUITER): - Cont oxybutynin Assessment & Plan (07/03/2020 11:14 AM ADMISSIONS RECRUITER): - Cont oxybutynin Assessment & Plan (07/02/2020 1:59 PM ADMISSIONS RECRUITER): - Cont oxybutynin Assessment & Plan (07/01/2020 2:58 PM ADMISSIONS RECRUITER): - Cont oxybutynin Assessment & Plan (06/30/2020 2:10 PM ADMISSIONS RECRUITER): - Cont oxybutynin - Cr now improving, maykel shaffer'd Assessment & Plan (06/29/2020 2:03 PM ADMISSIONS RECRUITER): - Cont oxybutynin - Cr now improving, maykel shaffer'd Assessment & Plan (06/28/2020 2:00 PM ADMISSIONS RECRUITER): - Cont oxybutynin - Cr now improving, will dc brar and do a void trial Assessment & Plan (06/27/2020 6:07 AM ADMISSIONS RECRUITER): Resume oxybutynin. Currently with Brar in place. Pending creatinine will remove Brar and attempt voiding trial. Assessment & Plan (05/17/2018 2:16 AM CDT): Continue home Mybretriq Hypothyroidism 05/17/2016 Assessment & Plan (12/13/2022 6:48 PM CDT): -Cont home Synthroid 137 Assessment & Plan (09/18/2022 1:45 PM ADMISSIONS RECRUITER): Continue home synthroid - check TSH given RVR- wnl Assessment & Plan (09/17/2022 9:58 AM ADMISSIONS RECRUITER): Continue home synthroid - check TSH given RVR- wnl Assessment & Plan (09/16/2022 10:21 AM ADMISSIONS RECRUITER): Continue home synthroid - check TSH given RVR- wnl Assessment & Plan (09/15/2022 9:12 AM ADMISSIONS RECRUITER): Continue home synthroid - check TSH given RVR- wnl Assessment & Plan (09/14/2022 11:09 AM ADMISSIONS RECRUITER): Continue home synthroid - check TSH given RVR- wnl Assessment & Plan (09/13/2022 3:10 PM ADMISSIONS RECRUITER): Continue home synthroid - check TSH given RVR Assessment & Plan (11/01/2021 1:40 PM CDT): -Cont Synthyroid 112 Assessment & Plan (10/31/2021 5:47 PM CDT): -Cont Synthyroid 112 Assessment & Plan (04/20/2021 9:35 AM CDT): Home levothyroxine 112mcg - TSH elevated in setting of acute illness, free T4 wnl, free T3 1.6 - continue home levothyroxine for now, patient should follow up with primary care physician as outpatient Assessment & Plan (04/19/2021 10:28 AM CDT): Home levothyroxine 112mcg - TSH elevated in setting of acute illness, free T4 wnl, free T3 1.6 - continue home levothyroxine for now, patient should follow up with primary care physician as outpatient Assessment & Plan (04/18/2021 9:27 AM CDT): Home levothyroxine 112mcg - TSH elevated in setting of acute illness, free T4 wnl, free T3 1.6 - continue home levothyroxine for now, patient should follow up with primary care physician as outpatient Assessment & Plan (04/17/2021 11:21 AM CDT): Home levothyroxine 112mcg - TSH elevated in setting of acute illness, free T4 wnl - will check free T3 - continue home levothyroxine for now Assessment & Plan (04/16/2021 11:40 AM CDT): Home levothyroxine 112mcg - check TSH, free T4 - continue home levothyroxine for now Assessment & Plan (07/04/2020 11:29 AM ADMISSIONS RECRUITER): - TSH 2.16, continue home Synthroid Assessment & Plan (07/03/2020 11:13 AM ADMISSIONS RECRUITER): - TSH 2.16, continue home Synthroid Assessment & Plan (07/02/2020 1:59 PM ADMISSIONS RECRUITER): - TSH 2.16, continue home Synthroid Assessment & Plan (07/01/2020 2:59 PM ADMISSIONS RECRUITER): - TSH 2.16, continue home Synthroid Assessment & Plan (06/30/2020 2:10 PM ADMISSIONS RECRUITER): - TSH 2.16, continue home Synthroid Assessment & Plan (06/29/2020 2:03 PM ADMISSIONS RECRUITER): - TSH 2.16, continue home Synthroid Assessment & Plan (06/28/2020 1:57 PM ADMISSIONS RECRUITER): - TSH 2.16, continue home Synthroid Assessment & Plan (06/27/2020 6:06 AM ADMISSIONS RECRUITER): Add on TSH, continue home Synthroid. Assessment & Plan (06/18/2018 10:10 AM ADMISSIONS RECRUITER): -cont levothyroxine Assessment & Plan (06/17/2018 12:47 PM ADMISSIONS RECRUITER): -cont levothyroxine Assessment & Plan (06/16/2018 11:03 AM ADMISSIONS RECRUITER): Checked TSH and progressive elevation to 9.10 on trending. Check FT4. May be inadequate supplementation or sick euthyroid syndrome with recent acute illness. Continue home synthroid for now and adjust as needed. Could this have contributed to recent month long bout of diarrhea? Assessment & Plan (06/15/2018 5:37 AM CDT): Check TSH -Continue syntrhoid. Assessment & Plan (05/17/2018 2:15 AM CDT): Continue home dose of levothyroxine 100 mcg qday. Ischemic cerebrovascular accident (CVA) 04/18/20 13 NAI (obstructive sleep apnea) 01/23/2013 Assessment & Plan (12/13/2022 6:48 PM CDT): -Nightly CPAP Assessment & Plan (04/20/2021 9:26 AM CDT): Compliant with CPAP, does not know settings - CPAP per protocol Assessment & Plan (04/19/2021 10:28 AM CDT): Compliant with CPAP, does not know settings - CPAP per protocol Assessment & Plan (04/18/2021 8:38 AM CDT): Compliant with CPAP, does not know settings - CPAP per protocol Assessment & Plan (04/17/2021 11:18 AM CDT): Compliant with CPAP, does not know settings - will order inpatient CPAP per protocol Assessment & Plan (04/16/2021 11:46 AM CDT): Compliant with CPAP, does not know settings - will order inpatient CPAP per protocol Assessment & Plan (06/18/2018 10:09 AM ADMISSIONS RECRUITER): Continue home nocturnal CPAP at 9 Assessment & Plan (06/17/2018 12:45 PM ADMISSIONS RECRUITER): Continue home CPAP at 9. Compliant with CPAP as inpatient. Assessment & Plan (06/16/2018 11:03 AM ADMISSIONS RECRUITER): Continue home CPAP at 9. Compliant with CPAP as inpatient. Assessment & Plan (06/15/2018 5:38 AM CDT): Continue home CPAP at 9 Assessment & Plan (05/17/2018 2:16 AM CDT): Patient uses CPAP at home (9cm H2O). Continue on admission. Hypertension 12/31/2012 Assessment & Plan (11/01/2021 1:41 PM CDT): Per , with autonomic instability and labile blood pressures -Recently on midodrine however has since been discontinued due to hypertension -Takes carvedilol 6.25mg PRN elevated blood pressure Assessment & Plan (10/31/2021 5:47 PM CDT): Per , with autonomic instability and labile blood pressures -Recently on midodrine however has since been discontinued -Watch BP. Add back Coreg as able Assessment & Plan (04/20/2021 9:26 AM CDT): Elevated on admission, improved with diuresis - continue losartan and diuresis as above Assessment & Plan (04/19/2021 10:27 AM CDT): Elevated on admission, improved with diuresis - continue losartan and diuresis as above Assessment & Plan (04/18/2021 8:38 AM CDT): Elevated on admission, improved with diuresis - continue losartan and diuresis as above Assessment & Plan (04/17/2021 11:18 AM CDT): Currently slightly above goal on transfer - continue losartan and diuresis as above Assessment & Plan (04/16/2021 11:39 AM CDT): Currently slightly above goal on transfer - continue losartan and diuresis as above Assessment & Plan (07/04/2020 11:29 AM ADMISSIONS RECRUITER): - Hold losartan in setting of ALEXANDRA, normotensive, may resume at dc Assessment & Plan (07/03/2020 11:13 AM ADMISSIONS RECRUITER): - Hold losartan in setting of ALEXANDRA, normotensive, may resume at dc Assessment & Plan (07/02/2020 1:59 PM ADMISSIONS RECRUITER): - Hold losartan in setting of ALEXANDRA, may resume at dc Assessment & Plan (07/01/2020 2:59 PM ADMISSIONS RECRUITER): - Hold losartan in setting of ALEXANDRA, may resume at dc Assessment & Plan (06/30/2020 2:10 PM ADMISSIONS RECRUITER): - Hold losartan in setting of ALEXANDRA Assessment & Plan (06/29/2020 2:03 PM ADMISSIONS RECRUITER): - Hold losartan in setting of ALEXANDRA Assessment & Plan (06/28/2020 1:56 PM ADMISSIONS RECRUITER): - Holding losartan in setting of ALEXANDRA Assessment & Plan (06/27/2020 6:06 AM ADMISSIONS RECRUITER): Holding losartan 25 mg daily given reported acute renal failure on presentation and concern for GI bleed/diarrhea. Can restart alternative antihypertensive as needed. Assessment & Plan (05/17/2018 2:14 AM CDT): Patient is on losartan 25 mg qday. She was hypotensive on admission to /55. Hold in the setting of hypotension. Resolved Problems Problem Noted Date Diagnosed Date Resolved Date Hyponatremia 04/17/2021 10/31/2021 Assessment & Plan (04/20/2021 9:41 AM CDT): In setting of acute heart failure, now resolved - fluid restriction, diuresis - continue to monitor Assessment & Plan (04/19/2021 10:31 AM CDT): In setting of acute heart failure, now resolved - fluid restriction, diuresis - continue to monitor Assessment & Plan (04/18/2021 8:41 AM CDT): In setting of acute heart failure, now resolved - fluid restriction, diuresis - continue to monitor Assessment & Plan (04/17/2021 11:16 AM CDT): In setting of acute heart failure - fluid restriction, diuresis - continue to monitor Septic thrombophlebitis 07/06/2020/08/2021 Overview (07/06/2020): Assessment & Plan (07/07/2020 4:10 PM ADMISSIONS RECRUITER): 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 Gas seen on that CT and f/u CT 07/05 with c/f septic thrombophlebitis and colonic ischemia. - Hep gtt. - Empiric cefe 2g q12, BARNETT 500 q8 - ID consult: PO flagyl 500 TID, and levoflox 500 daily for 4 weeks. Will make an appt for her in 6 weeks to follow up and order repeat imaging for thrombophlebitis. Altered mental state 07/01/2020 022 Assessment & Plan (07/07/2020 4:13 PM ADMISSIONS RECRUITER): Improving delirium. 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 With some somnolence 07/05. Improved after holding home klonopin. Also holding ropinirole. Developed some mild withdrawal tremors with holding klonopin so resumed today and will recommend to taper on outpatient basis given propensity for delirium. Assessment & Plan (07/04/2020 11:27 AM ADMISSIONS RECRUITER): Appeare confused/lethargic over the last few days, daughter felt that patient not acting like herself. Likely 2/2 delirium from being in the hospital and being up all night multiple nights doing bowel prep. Mental status significantly improved today. - Completed 5 days of antibiotic at OSH and 5 days of CTX here for UTI, otherwise infectious workup unrevealing - CT head negative for acute process, did show old CVA - CT C/A/P 07/02 w/o acute infectious process - Delirium and fall precautions - Hold some DRAG CAR RACER affecting meds Assessment & Plan (07/03/2020 12:52 PM ADMISSIONS RECRUITER): Appears confused/lethargic over the last few days, daughter feels that patient is definitely not acting like herself. Likely 2/2 delirium from being in the hospital and being up all night multiple nights doing bowel prep. - She completed 5 days of CTX for UTI here, otherwise infectious workup unrevealing: afebrile w/ down trending leukocytosis, bcx no growth, urine culture no growth, c diff negative, stool culture negative, CXR negative - CT head negative for acute process, did show old CVA - Chest CT07/02 w/o infectious process, did show BL pleural effusions w/ atelectasis, and mild aspiration - Delirium and fall precautions - Will hold some DRAG CAR RACER affecting meds Assessment & Plan (07/02/2020 2:08 PM ADMISSIONS RECRUITER): Appears confused over the last few days, daughter feels that patient is definitely not acting like herself. Today she appears drowsy. Likely 2/2 delirium from being in the hospital and being up all night multiple nights doing bowel prep. - She completed 5 days of CTX for UTI here, otherwise infectious workup unrevealing: leukocytosis trending down, bcx NGTD, urine culture no growth, c diff negative, stool culture negative, CXR negative, remains afebrile - CT head without evidence acute CVA, did show old CVA - Will obtain chest CT today given worsened cough - Delirium and fall precautions Assessment & Plan (07/01/2020 3:24 PM ADMISSIONS RECRUITER): Appeared confused yesterday and today, daughter reports that patient is definitely not acting like herself. Today she appears drowsy. Likely 2/2 delirium from being in the hospital and being up all night multiple nights doing bowel prep. - She is being treated for UTI with CTX, otherwise infectious workup unrevealing: leukocytosis trending down, bcx NGTD, urine culture no growth, c diff negative, stool culture negative, CXR negative - CT head without evidence acute CVA - Delirium and fall precautions COVID-19 06/27/2020 10/31/2021 Assessment & Plan (07/04/2020 11:33 AM ADMISSIONS RECRUITER): - Recovered - diagnosed 05/23, repeat covid Ag testing negative Assessment & Plan (07/03/2020 12:12 PM ADMISSIONS RECRUITER): - Recovered - diagnosed 05/22, repeat covid Ag testing negative Assessment & Plan (07/02/2020 1:59 PM ADMISSIONS RECRUITER): - Recovered - diagnosed 05/22, repeat covid Ag testing negative Assessment & Plan (07/01/2020 2:59 PM ADMISSIONS RECRUITER): - Recovered - diagnosed 05/22, repeat covid Ag testing negative Assessment & Plan (06/30/2020 2:10 PM ADMISSIONS RECRUITER): Recovered - diagnosed 05/22, repeat covid Ag testing negative Assessment & Plan (06/29/2020 2:06 PM ADMISSIONS RECRUITER): Recovered - diagnosed 05/22, repeat covid Ag testing negative Assessment & Plan (06/28/2020 2:10 PM ADMISSIONS RECRUITER): History of COVID-19 infection initially diagnosed in May 22, 2020 at an OSH. Labs not currently available for review. Patient required hospitalization for decreased saturations although is now recovered. - Repeat COVID swab negative here Assessment & Plan (06/27/2020 6:18 AM ADMISSIONS RECRUITER): History of COVID-19 infection initially diagnosed in May 22, 2020 somewhere else. Labs not currently available for review. Patient required hospitalization for decreased saturations although is now recovered. -to be able to list patient as COVID recovered in our system, will need to obtain outside proof of COVID positivity although unfortunately, she does not remember where this test was performed. UTI (urinary tract infection) 06/27/2020 10/31/2021 Assessment & Plan (07/06/2020 3:49 PM ADMISSIONS RECRUITER): Urine culture with pansensitive E coli at OSH. S/p 5 days of abx at OSH and 5d CTX here. Assessment & Plan (07/04/2020 11:29 AM ADMISSIONS RECRUITER): Urine culture with pansensitive E coli at OSH. Unclear what antibiotic she was receiving although presumably she had received 5 days of it. - Repeat UA 2+ LE, 11-20 wbc 3+ yeast - Urine cx no growth, no urinary symptoms - Completed 5 days of CTX here Assessment & Plan (07/03/2020 11:13 AM ADMISSIONS RECRUITER): Urine culture with pansensitive E coli at OSH. Unclear what antibiotic she was receiving although presumably she has received 5 days of it. - Repeat UA 2+ LE, 11-20 wbc 3+ yeast - no urinary symptoms - Urine cx no growth - Completed 5 days of CTX here on 07/01 Assessment & Plan (07/02/2020 1:58 PM ADMISSIONS RECRUITER): Urine culture with pansensitive E coli at OSH. Unclear what antibiotic she was receiving although presumably she has received 5 days of it. - Repeat UA 2+ LE, 11-20 wbc 3+ yeast - no urinary symptoms - Urine cx no growth - Completed 5 days of CTX here on 07/01 Assessment & Plan (07/01/2020 2:58 PM ADMISSIONS RECRUITER): Urine culture with pansensitive E coli at OSH. Unclear what antibiotic she was receiving although presumably she has received 5 days of it. - Repeat UA 2+ LE, 11-20 wbc 3+ yeast - no urinary symptoms - Urine cx no growth - Continue CTX Assessment & Plan (06/30/2020 2:09 PM ADMISSIONS RECRUITER): Urine culture with pansensitive E coli. Unclear what antibiotic she was receiving although presumably she has received 5 days of it. - Repeat UA 2+ LE, 11-20 wbc 3+ yeast - no urinary symptoms - Urine cx no growth - Continue CTX for now Assessment & Plan (06/29/2020 2:03 PM ADMISSIONS RECRUITER): Urine culture with pansensitive E coli. Unclear what antibiotic she was receiving although presumably she has received 5 days of it. - Repeat UA 2+ LE, 11-20 wbc 3+ yeast - no urinary symptoms - Urine cx no growth - Continues to have rising leukocytosis, will resume CTX and CTM Assessment & Plan (06/28/2020 2:13 PM ADMISSIONS RECRUITER): Urine culture with pansensitive E coli. Unclear what antibiotic she was receiving although presumably she has received 5 days of it. - Repeat UA 2+ LE, 07-02 wbc 3+ yeast - no urinary symptoms - Urine cx no growth - Dc empiric CTX Assessment & Plan (06/27/2020 6:14 AM ADMISSIONS RECRUITER): Urine culture with pansensitive E coli. Unclear what antibiotic she was receiving although presumably she has received 5 days of it. Will repeat UA and decide on re-initiation of antibiotics at that point. Fatigue 08/11/2019 10/31/2021 VTE (venous thromboembolism) 05/22/2019 10/31/2021 Assessment & Plan (07/04/2020 11:32 AM ADMISSIONS RECRUITER): History of unprovoked PE and lower extremity DVT in 2018 with associated peripheral eosinophilia and extensive workup by Hematology here (Dr. Shipman) as well as bone marrow biopsy without cause. Patient has since completed 6 months of treatment and has been maintained on prophylactic dose of Xarelto at 10 mg daily. - Heme c/s given that patient has portal vein thrombosis in setting of AC. Switched xeralto to hep gtt. Assessment & Plan (07/03/2020 12:52 PM ADMISSIONS RECRUITER): History of unprovoked PE and lower extremity DVT in 2018 with associated peripheral eosinophilia and extensive workup by Hematology here (Dr. Shipman) as well as bone marrow biopsy without cause. Patient has since completed 6 months of treatment and has been maintained on prophylactic dose of Xarelto at 10 mg daily. - Heme c/s given that patient has portal vein thrombosis in setting of AC - Switch xeralto to hep gtt in setting of portal vein thrombus seen on CT 07/02 Assessment & Plan (07/02/2020 1:58 PM ADMISSIONS RECRUITER): History of unprovoked PE and lower extremity DVT in 2018 with associated peripheral eosinophilia and extensive workup by Hematology here (Dr. Shipman) as well as bone marrow biopsy without cause. Patient has since completed 6 months of treatment and has been maintained on prophylactic dose of Xarelto at 10 mg daily. - Xarelto initially held given c/f GI bleed, resumed on 07/01 given no e/o of bleeding on EGD/C-scope Assessment & Plan (07/01/2020 2:57 PM ADMISSIONS RECRUITER): History of unprovoked PE and lower extremity DVT in 2019 with associated peripheral eosinophilia and extensive workup by Hematology here (Dr. Shipman) as well as bone marrow biopsy without cause. Patient has since completed 6 months of treatment and has been maintained on prophylactic dose of Xarelto at 10 mg daily. 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 Shipman) as well as bone marrow biopsy without cause. 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 Shipman) as well as bone marrow biopsy without cause. 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 Shipman) as well as bone marrow biopsy without cause. 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 Shipman) as well as bone marrow biopsy without cause. -patient has since completed 6 months of treatment and has been maintained on prophylactic dose of Xarelto at 10 mg daily, which per Hematology/note, should be continued as long as benefits await bleeding risks. -given concern for GI bleed currently Xarelto and DVT prophylaxis remains on hold. Eosinophilia 05/22/2019 10/31/2021 Sepsis 06/15/2018 06/18/2018 Assessment & Plan (06/16/2018 10:57 AM ADMISSIONS RECRUITER): Resolving sepsis due to PNA. Febrile and elevated leukocytosis at OSH. CT with concerns for possible pneumonia. Has had tick exposures as well with OSH concern for pericardial effusion. Infectious workup unremarkable to date. Given her significant rheumatologic and hematologic workup in the past, concern this could be rheumatic or inflammatory in nature as well. Blood cultures NGTD x2, ehrlichia PCR (Pending), Received Zosyn and Vanc at OSH. Changed to IV Vanc/Cefe here (06/15-current) and Doxy added for possible ehrlichia with arthralgias and reported eos at OSH. Await Ehrlichia PCR (pending). Received 1 dose IV Solumedrol 1mg/kg for potential inflammatory nature espescially given worsening joint pain, effusion, and possible IBD on recent c-scope, however this was not continued given only small pericardial effusion on TTE, no evidence of celiac disease by recent path, and s/o acute pulmonary infx. OSH with possible pulmonary fibrosis, rechecked ERIKA (1:180), YEVGENIY, RF, CCP, Myomarker and improved ESR& CRP. NO evidence of sepsis on transfer. Monitored on Telemetry Assessment & Plan (06/15/2018 5:31 AM CDT): Febrile and elevated leukocytosis at OSH. CT with concerns for possible pneumonia. Has had tick exposures as well with a new pericardial effusion. Concerns for infectious etiologies. Given her significant rheumatologic and hematologic workup in the past, concern this could be rheumatic or inflammatory in nature as well. -Blood cultures, ehrlichia PCR -Received Zosyn and Vanc at OSH. Will start her on Vanc and Cefe here. Start Doxy for possible ehrlichia though it is june and unlikely. Can likely peel off after ehrlichia pcr comes back -Solumedrol 1mg/kg BID for potential inflammatory nature espescially given worsening joint pain, effusion, and possible IBD on recent c-scope -Patient also has findings of possible pulmonary fibrosis - will check ERIKA, YEVGENIY, RF, CCP, Myomarker, ESR, CRP -Telemetry -Would benefit from rheumatology consult in the morning -Cardiology consulted for TTE to further evaluate effusion to r/o tamponade. Imbalance 06/04/2018 07/30/2018 Assessment & Plan (07/07/2019 11:41 AM ADMISSIONS RECRUITER): 2 Elevated INR 05/20/2018 05/21/2018 Assessment & Plan (05/20/2018 5:26 PM CDT): - Still persistently >9 (PTT is also prolonged >107) despite vitamin K administration - OSH PCP contacted and appears that INR went up rapidly with few doses of 3 and 4mg warfarin - Ordered PT and PTT mixing study - C/s'ed heme for recs on INR reversal, further w/u of significantly prolonged INR, and peripheral eosinophilia Mild malnutrition 05/17/2018 07/30/2018 Overview (05/17/2018): Presents with a month of diarrhea and weight loss. Nutrition evaluated and confirmed moderate malnutrition. 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 Patient has followed with Dr. Moralez in the Stroke Clinic. At that time patient was started on aspirin and statin for LDL 140. Since that time, patient self discontinued statin and recently stopped taking ASA. Restarted aspirin on admission Can discuss restarting these medications on discharge. Encounters Date Type Department Care Team Description 09/29/2024 Orders Only [facility] Gastroenterology [address] 12th [place] [address] [place] [address] Imani Villalobos, RN Celiac disease (Primary Dx); Routine health maintenance 08/20/2024 Telephone [facility] Gastroenterology [address] [place] [address] 12th [place] [address] [place] [address] Earline Cartwright, Levi 08/01/2024 1:00 PM ADMISSIONS RECRUITER Infusion [facility] [address] [place] [address] Iron deficiency anemia, unspecified iron deficiency anemia type (Primary Dx) 08/01/2024 Orders Only [facility] Gastroenterology [address] [place] [address] [place] [address] [place] [address] Imani Villalobos, DELILAH 07/30/2024 2:00 PM ADMISSIONS RECRUITER Office Visit [facility] Rheumatology [address] 2nd Floor [address] [place] [address] Nikki Manzanares NP Hyperuricemia (Primary Dx) 07/24/2024 Documentation [facility] Clinical Trial [address] [place] [address] Louise Mayo BS 07/17/2024 Telephone [facility] Hematology [facility] Floor [address] [place] [address] Charley Meredith, RN 07/16/2024 2:30 PM ADMISSIONS RECRUITER Infusion [facility] - Infusion [facility] Floor [address] [place] [address] Iron deficiency anemia, unspecified iron deficiency anemia type (Primary Dx) 07/15/2024 1:15 PM ADMISSIONS RECRUITER Office Visit [facility] Cardiology [address] 8th [place] [address] [place] [address] Ferny Kearns MD PhD Chronic systolic heart failure (CMS/HCC) (HCC) (Primary Dx); Hypertension, unspecified type; Hyperlipidemia, unspecified hyperlipidemia type; Atrial fibrillation with RVR (CMS/HCC) (HCC) 07/07/2024 Orders Only [facility] Hematology [facility] Floor [address] [place] [address] Alejandro Shipman MD Iron deficiency anemia, unspecified iron deficiency anemia type (Primary Dx) 07/07/2024 Orders Only [facility] Hematology [facility] Floor [address] [place] [phone] Alejandro Shipman MD Iron deficiency anemia, unspecified iron deficiency anemia type (Primary Dx) 07/03/2024 1:45 PM ADMISSIONS RECRUITER Office Visit [facility] [address] [place] [address] [address] [place] [address] Mary Ovalle MD Periodic limb movement disorder (Primary Dx); Restless legs syndrome; Unsteady gait from Last 3 Months Immunizations Immunization Administration Dates Next Due Influenza, Quad, Adjuvantate d, Intramuscular 05/10/2020 Influenza, Quadrivalent, Hig h Dose, Preservative Free, Intrr 10/31/2021 Influenza, Quadrivalent, Spl it, Intramuscular 05/10/2020,05/15/2019,05/28/2018 Influenza, Unspecified 04/13/2022,04/13/2020,10/2018 Pneumococcal Conjugate PCV 13 06/29/2016 Pneumococcal Polysaccharide PPV23 07/31/2017 Surgical History Surgery Date Site/Laterality Comments VT TONSILLECTOMY PRIMARY/SECONDARY <AGE 13 APPENDECTOMY OSTEOCHONDROMA EXCISION Right leg SHOULDER SURGERY 08/13/2010 - 08/12/2011 Left Frozen shoulder release/manipulation AUGMENTATION MAMMOPLASTY SECTION x2 CORONARY ANGIOPLASTY WITH STENT PLACEMENT 07/2021, 08/2021, 10/2021 COLONOSCOPY Medical History Medical History Date Comments Celiac disease Sleep apnea Chronic diarrhea Hypothyroidism Chronic kidney disease Memory loss Stroke ([facility]) 2017 per imaging Renal insufficiency Pneumonia 05/2019 DVT (deep venous thrombosis) ([facility]) ([facility]) 201 8 PE ERIKA positive COVID-19 virus detected 05/23/2020 E-coli UTI 01/26/2021 Status post placement of implantable loop record er 2013 Hypertension Coronary artery disease CHF (congestive heart failure) ([facility]) ([facility]) Anemia persistent Portal vein thrombosis 2020 A-fib ([facility]) ([facility]) 08/16/2022 Anxiety Hyperlipidemia History of blood transfusion Family History Medical History Relation Name Comments Graves' disease Daughter Family histo ry of Graves' disease - (Added by TW Conv) Stroke Father COPD Mother Family history of chronic obstructive pulmonary disease - (Added by TW Conv) Heart failure Mother Hypertension Mother Family history of hypertension - (Added by TW Conv) Insomnia Other Family history of insomnia - (Added by TW Conv) Hypertension Sister 1 Family history of hypertension - (Added by TW Conv) Asthma Sister 2 Family history of asthma - (Added by TW Conv) Relation Name Status Comments Daughter Father Mother Other Sister 1 Sister 2 Social History Tobacco Use Types Packs/Day Years Used Date Smoking Tobacco: Never Passive Smoke Exposure: Past Smokeless Tobacco: Never Tobacco Cessation:Counseling Given: Not Answered Alcohol Use Standard Drinks/Week Comments No 0 (1 standard drink = 0.6 oz pur e alcohol) Social Connection and Isolat ion Panel [NHANES] Answer Date Recorded In a typical week, how many times do you talk on the phone with family, friends, or neighbors? More than three times a week 01/24/2023 How often do you get togethe r with friends or relatives? Once a week 01/24/2023 How often do you attend formerly [facility] or latter-day services? Never 01/24/2023 Do you belong to any clubs o r organizations such as spiritism groups, unions, fraternal or athletic groups, or school groups? No 01/24/2023 How often do you attend meet ings of the clubs or organizations you belong to? Never 01/24/2023 Are you , , di vorced, , never , or living with a partner? 01/24/2023 AUDIT-C Answer Date Recorded Q1: How often do you have a drink containing alc ohol? Monthly or less 12/13/2022 Q2: How many drinks containi ng alcohol do you have on a typical day when you are drinking? 1 or 2 12/13/2022 Q3: How often do you have si x or more drinks on one occasion? Never 12/13/2022 Overall Financial Resource Strain (CARDIA) Answe r Date Recorded How hard is it for you to pa y for the very basics like food, housing, medical care, and heating? Not hard at all 01/24/2023 PHQ-2 Answer Date Recorded PHQ-2 Total Score (If total score is 3 or more points, staff should administer the PHQ-9) 0 01/22/2023 Hunger Vital Sign Answer Date Recorded Within the past 12 months, y ou worried that your food would run out before you got the money to buy more. Never true 01/25/20 23 Within the past 12 months, t he food you bought just didn't last and you didn't have money to get more. Never true 01/24/2023 PRAPARE - Transportation Answer Date Re corded In the past 12 months, has l ack of transportation kept you from medical appointments or from getting medications? No 01/11 In the past 12 months, has l ack of transportation kept you from meetings, work, or from getting things needed for daily living? No 01/24/2023 Housing Stability Vital Sign Answer Gerard e Recorded In the last 12 months, was t here a time when you were not able to pay the mortgage or rent on time? No 01/24/2023 In the last 12 months, how many places have you lived? 1 01/24/2023 In the last 12 months, was t here a time when you did not have a steady place to sleep or slept in a penitentiary (including now)? No 01/24/2023 Personal Safety Answer Date Recorded Have you ever been in or are you currently in a harmful physical or emotional relationship or is someone making you feel afraid or unsafe? Denies 01/16/2023 Comments No Sex and Gender Information Value Date Recorded Sex Assigned at Not on file Legal Sex Female 6:53 AM ADMISSIONS RECRUITER Gender Identity Not on file Sexual Orientation Not on file Obstetrics History Last Filed Vital Signs Vital Sign Reading Time Taken Comments Blood Pressure 129/79 08/01/2024 2:53 PM ADMISSIONS RECRUITER Pulse 66 08/01/2024 2:53 PM ADMISSIONS RECRUITER Temperature 36.7 C (98 F) 08/01/2024 2:53 PM ADMISSIONS RECRUITER Respiratory Rate 16 08/01/2024 2:53 PM ADMISSIONS RECRUITER Oxygen Saturation 98% 08/01/2024 2:53 PM ADMISSIONS RECRUITER Inhaled Oxygen Concentration - - Weight 78.2 kg (172 lb 6.4 oz) 08/01/2024 1:00 P M ADMISSIONS RECRUITER Height 175.3 cm (5' 9 ) 07/30/2024 2:01 PM ADMISSIONS RECRUITER Body Mass Index 25.46 07/30/2024 2:01 PM ADMISSIONS RECRUITER Plan of Treatment Health Maintenance Due Date Last Done Comments DTaP/Tdap/Td Vaccine (1 - Tdap) 1957 Hepatitis B Screening 1964 Zoster Vaccine (1 of 2) 1996 Well Visit 65+ 2011 Depression Screening 01/16/2024 01/15/2023, 12/04/2022, 12/04/2022, Additional history exists Osteoporosis Screening-Bone Density Scan 01/17/2024 01/16/2022 Fall Risk Assessment 01/24/2024 01/23/2023 Influenza Vaccine (#1) 2024 , 10/31/2021, 05/10/2020, Additional history exists Pneumococcal vaccine 65+ Completed 017, 06/29/2016, 07/02/2012 Hepatitis C Screening Completed 08/23/2018 Colon Cancer Screening-CT Colonography Discontinued 03/10/2021, 06/30/2020, 05/22/2018 Colon Cancer Screening-Colonoscopy Discontinued 03/10/2021, 06/30/2020, 05/22/2018 Colon Cancer Screening-DNA Stool Discontinued 03/10/2021, 06/30/2020, 05/22/2018 Colon Cancer Screening-FIT Discontinued 03/10, 06/30/2020, 05/22/2018 Colon Cancer Screening-FOBT Discontinued 02/11, 06/30/2020, 05/22/2018 Colon Cancer Screening-Sigmoidoscopy Discontinued 03/10/2021, 06/30/2020, 05/22/2018 Colorectal Cancer Screening Discontinued Breast Cancer Screening-Mammogram Discontinued 01/16/2022, 12/16/2020, 12/02/2019 Medical Devices Implanted Type Area Builder Beam Device Identifier Shelf Expiration Date Model / Serial / Lot [employer] Vascade Mvp 6-12fr Venous Closure [id number] - [id number] - [id number] Implanted:Qty: 1 on 12/13/2022 by Yohan Carpenter MD at [facility] Collagen Right: Femoral Vein [employer] 09/12/2024 800-612C- 10U / [id number] / [id number] [employer] Vascade Mvp 6-12fr Venous Closure [id number] - [id number] - [id number] Implanted:Qty: 1 on 12/13/2022 by Yohan Carpenter MD at [facility] Collagen Left: Femoral Vein [employer] 09/12/2024 800-612C- 10U / [id number] 09B / [id number] [employer] Vascade Mvp 6-12fr Venous Closure [id number] - [id number] - [id number] Implanted:Qty: 1 on 12/13/2022 by Yohan Carpenter MD at [facility] Collagen Left: Femoral Vein [employer] 09/12/2024 800-612C- 10U / [id number] 09B / [id number] [employer] Device Closure Vascade Od5 Fr Femoral Artery [id number] - [id number] - [id number] Implanted:Qty: 1 on 12/13/2022 by Yohan Carpenter MD at [facility] Collagen Right: Femoral Vein [employer] 09/04/2024 700-500DX -05U / [id number] / Med[employer] Usa [employer] X [id number] Resolute Abhijeet 3.5mm 2.1-2.7fr 18mm 140cm Rapid Exchange - [id number] Implanted:Qty: 1 on 08/18/2021 by Hero Hernandez MD at [facility] Stent Medtronic Inc 06/10/2024 [id number] / / [id number] [employer] Inc [id number] Stent Coronary De Rx Cocr Ors Msn 2.5x35mm - [id number] Implanted:Qty: 1 on 08/18/2021 by Hero Hernandez MD at [facility] Stent [employer] Inc 02/28/2023 [id number] / / [id number] [employer] Wayne [id number] Synergy Xd Monorail 2.75mm 32mm 144cm Delivery System 1 Access - [id number] Implanted:Qty: 1 on 10/31/2021 by Hero Hernandez MD at [facility] Stent [employer] 11/18/2022 [id number] / / [id number] [employer] [id number] Synergy Xd Monorail 3mm 16mm 144cm Delivery System 1 Access Port - [id number] Implanted:Qty: 1 on 10/31/2021 by Hero Hernandez MD at [facility] Stent [employer] 01/19/2023 [id number] / / [id number] [employer] Awyne [id number] Synergy Xd Monorail 2.25mm 12mm 144cm Delivery System 1 Access - [id number] Implanted:Qty: 1 on 10/31/2021 by Hero Hernandez MD at [facility] Stent [employer] 06/08/2023 [id number] / / [id number] [employer] [id number] Synergy Xd Monorail 2.25mm 16mm 144cm Delivery System 1 Access - [id number] Implanted:Qty: 1 on 10/31/2021 by Hero Hernandez MD at [facility] Stent [employer] 12/14/2022 [id number] / / [id number] Breast Bilateral: Breast Explanted Type Area Builder Beam Device Identifier Shelf Expiration Date Model / Serial / Lot Implantable Loop Recorder-07/09 Implanted:06/14 (Quantity not on file) Explanted:03/13 (Quantity not on file) Implantable Loop Recorder N/A: Heart [employer] / / Procedures Procedure Name Priority Date/Time Associated Diagnosis Comments COLONOSCOPY 03/10/2021 11:25 AM CDT HEPATITIS C ANTIBODY Routine 08/23/2018 11:13 AM ADMISSIONS RECRUITER Eosinophilia from Last 3 Months or Most Recently Relevant to Health Maintenance Results * COLONOSCOPY (03/10/2021 11:25 AM CDT) Anatomical Region Laterality Modality Other Narrative Procedure Note Rosy Valverde MD - 03/10/2021 11:25 AM CDT ENDOSCOPY LAB Patient Name: Diane Silva Procedure Date: 03/10/2021 11:25 AM Date of : 1945 Admit Type: Outpatient Age: 75 Gender: Female Attending MD: Rosy Valverde M.D. Room: [facility] ENDOSCOPY ROOM 01 Note Status: Finalized Procedure: Colonoscopy Indications: Recent Gastrointestinal bleeding and anemia Providers: Rosy Valverde M.D. Referring MD: Freddy Guy M.D. Medicines: Monitored Anesthesia Care Complications: No immediate complications. Estimated Blood Loss: Estimated blood loss was minimal. Procedure: Pre-Anesthesia Assessment: - Prior to the procedure, a History and Physicalwas performed, and patient medications, allergies and sensitivities were reviewed. The patient'stolerance of previous anesthesia was reviewed. The benefits, risks and alternatives of theprocedure and sedation were discussed and informed consentwas obtained. All questions were answered. Please referto the signed informed consent document in the medical record. The scope was passed under direct vision.The [id number] was introduced through the anusand advanced to the terminal ileum, with identificationof the appendiceal orifice and IC valve. Thecolonoscopy was performed without difficulty. The patient tolerated the procedure well. The quality of thebowel preparation was evaluated using the BBPS (BostonBowel Preparation Scale) with scores of: Right Colon = 3, Transverse Colon = 3 and Left Colon = 3 (entiremucosa seen well with no residual staining, smallfragments of stool or opaque liquid). The total BBPS score equals 9. The bowel preparation used was SUPREP via split dose instruction. Of note, given prior history of difficultcolonoscopy due to looping, water immersion technique andColowrap was utilized for the procedure which was felt to be beneficial. Findings: The perianal and digital rectal examinations were normal. The terminal ileum appeared normal. A 2 mm polyp was found in the transverse colon. The polyp wassessile. The polyp was removed with a cold biopsy forceps. Resection and retrieval were complete. The entire examined colon otherwise appeared normal on direct and retroflexion views. Impression: - The examined portion of the ileum was normal. - One 2 mm polyp in the transverse colon, removedwith a cold biopsy forceps. Resected and retrieved. - The entire examined colon is normal on direct and retroflexion views. Recommendation: - The patient will be observed post-procedure,until all discharge criteria are met. - Await pathology results. - Repeat colonoscopy for surveillance based onpath. - Follow up with referring physician. - Contact Information: During normal business hours - Please call theNurse Coordinator: [phone] After hours, evening, nights, weekends and holidays- Please call the hospital sammying machine operator at and ask for the GI fellow international first officer. - . Attending Participation: I personally performed the entire procedure. Electronically Signed By: Rosy Valverde M.D. Rosy Valverde M.D. 03/10/2021 11:51:46 AM Number of Addenda: 0 Note Initiated On: 03/10/2021 11:25 AM Rosy Valverde MD ENDOSCOPY PROCEDURES Fin al Result * Hepatitis C antibody (08/23/2018 11:13 AM ADMISSIONS RECRUITER) Hep C Ab Nonreactive Nonreactive [facility] Comment: Interpretive Data Positive results should be confirmed by a molecular method. If positive, a second separately collected sample should be submitted for Hepatitis C Virus (HCV) RNA Detection and Quantitation by Real-Time Reverse Credit Underwriter-PCR (RT-PCR). Current interpretive data was last revised on 2016. Blood specimen (specimen) 08/23/2018 11:13 AM ADMISSIONS RECRUITER 08/23/2018 2:46 PM ADMISSIONS RECRUITER Narrative [facility] - 08/24/2018 10:41 AM ADMISSIONS RECRUITER Lilian Garcia MD LAB MICROBIOLOGY - GENERAL OR DERABLES Edited Result - Final [facility] Department [place] [address] from Last 3 Months or Most Recently Relevant to Health Maintenance Insurance MEDICARE SOLUTIONS [employer]NA MEDICARE AETNA MEDICARE AETNA MEDICARE Advance Directives For more information, please contact: [phone] * Full Code (Latest Code Status on File) Date Activated Date Inactivated Comments 01/22/2023 6:27 PM 01/23/2023 6:57 PM * Full Code Date Activated Date Inactivated Comments 01/16/2023 4:29 PM 01/22/2023 6:26 PM * Full Code Date Activated Date Inactivated Comments 11/08/2022 2:41 PM 11/13/2022 3:22 PM * Full Code Date Activated Date Inactivated Comments 09/23/2022 12:04 AM 09/28/2022 4:10 PM * Full Code Date Activated Date Inactivated Comments 09/18/2022 9:03 AM 09/22/2022 11:59 PM Care Teams Cluster Bore Operator Relationship Specialty Start Date End Date Tera Seals DO [address] [place] [address] PCP - General Family Medicine 05/05/22 Nl-Neuromuscle, [facility] - [address] [place], [place] [id number] Referring Physician Neurology 04/18/18 Ferny Kearns MD PhD [address] [place] [address] Referring Physician Cardiology 04/21/21
--- OUTSIDE RECORDS SUMMARY | 2024-09-29 14:55 | XMS_ITS | Referral Summary ---
Author Organization [facility] Address [address] [place] [address] Care Team Providers Care Barmaid Name Role Phone Nl-Tawny Valdes - Unavailable Unavailab Ferny Harris MD PhD Unavailable [phone] Tera Seals DO Primary Care Provider Encounters Date Type Department Care Team Description 09/29/2024 Orders Only [facility] Gastroenterology [address] [facility] 12th [place] [address] [place] [address] Imani Villalobos RN Celiac disease (Primary Dx); Routine health maintenance 08/20/2024 Telephone [facility] Gastroenterology [address] [facility] 12th [place] [address] [place] [address] Earline Cartwright CPhT 08/01/2024 Orders Only [facility] Gastroenterology [address] [facility] 12th [place] [address] [place] [address] Imani Villalobos RN 08/01/2024 1:00 PM TREE CLIMBER [facility] at [address] [address] Iron deficiency anemia, unspecified iron deficiency anemia type (Primary Dx) 07/30/2024 2:00 PM TREE CLIMBER Office Visit [facility] Rheumatology [address] [facility] [address] [place] [address] Nikki Manzanares NP Hyperuricemia (Primary Dx) 07/24/2024 Documentation [facility] Clinical Trial [address] [place] [address] Louise Mayo BS 07/17/2024 Telephone [facility] Hematology [address] [facility] Floor 6 [place] [phone] Charley Meredith RN 07/16/2024 2:30 PM TREE CLIMBER Infusion [facility] - Infusion [address] [facility] Floor 6 [place] [address] Iron deficiency anemia, unspecified iron deficiency anemia type (Primary Dx) 07/15/2024 1:15 PM TREE CLIMBER Office Visit [facility] Cardiology [address] [facility] 8th [place] [address] [place] [address] Ferny Kearns MD PhD Chronic systolic heart failure (CMS/HCC) (HCC) (Primary Dx); Hypertension, unspecified type; Hyperlipidemia, unspecified hyperlipidemia type; Atrial fibrillation with RVR (CMS/HCC) (HCC) 07/07/2024 Orders Only [facility] Hematology [facility] Floor 6 [place] [id number] Alejandro Shipman MD Iron deficiency anemia, unspecified iron deficiency anemia type (Primary Dx) 07/07/2024 Orders Only [facility] Hematology [address] [facility] Floor 6 [place] [phone] Alejandro Shipman MD Iron deficiency anemia, unspecified iron deficiency anemia type (Primary Dx) 07/03/2024 1:45 PM TREE CLIMBER Office Visit [facility] [address] [facility] [address] [place] [address] Mary Ovalle MD Periodic limb movement disorder (Primary Dx); Restless legs syndrome; Unsteady gait from Last 3 Months Allergies Active Allergy Reactions Criticality Noted Date Comments Gluten Diarrhea Medium 06/15/2018 Metoprolol Hallucinations Medium 11/09/2022 Wheat Diarrhea Low 12/31/2012 Medications sertraline (ZOLOFT) 100 mg tablet Take 1 tablet (100 mg total) by mouth tractor operator before breakfast 0 Active atorvastatin (LIPITOR) 40 mg tablet Take 1 tablet (40 mg total) by mouth daily 90 tablet 3 2 Active MAGNESIUM ORAL Take 1,000 mg by mouth 2 (two) times a day Active VITAMIN A ORAL Take 1 tablet by mouth tractor operator before breakfast Active Farxiga 10 mg [...] 1 tablet (137 mcg total) by mouth tractor operator before breakfast 4 Active ascorbic acid [...] 023 Assessment & Plan (06/27/2024 3:47 PM TREE CLIMBER): If the patient is not able to [...] (09/24/2022): Added automatically from request for surgery [id number] Atrial fibrillation with RVR (CMS/HCC) 3 Assessment & Plan (09/18/2022 1:45 PM TREE CLIMBER): A fib diagnosed 08/16/2022, previously on metop [...] recs Assessment & Plan (09/17/2022 9:57 AM TREE CLIMBER): A fib diagnosed 08/16/2022, previously on metop [...] recs Assessment & Plan (09/16/2022 10:20 AM TREE CLIMBER): A fib diagnosed 08/16/2022, previously on metop [...] recs Assessment & Plan (09/15/2022 9:09 AM TREE CLIMBER): A fib diagnosed 08/16/2022, previously on metop [...] recs Assessment & Plan (09/14/2022 11:08 AM TREE CLIMBER): A fib diagnosed 08/16/2022, previously on metop [...] recs Assessment & Plan (09/13/2022 3:07 PM TREE CLIMBER): A fib diagnosed 08/16/2022, previously on metop [...] (08/08/2022): Added automatically from request for surgery [id number] Anemia in other chronic diseases classified else where 02/15/2022 Depression 10/31/2021 Assessment & Plan (09/18/2022 1:45 PM TREE CLIMBER): Continue home sertraline, klonopin Assessment & Plan (09/17/2022 9:57 AM TREE CLIMBER): Continue home sertraline, klonopin Assessment & Plan (09/16/2022 10:20 AM TREE CLIMBER): Continue home sertraline, klonopin Assessment & Plan (09/15/2022 9:12 AM TREE CLIMBER): Continue home sertraline, klonopin Assessment & Plan (09/14/2022 11:08 AM TREE CLIMBER): Continue home sertraline, klonopin Assessment & Plan (09/13/2022 3:12 PM TREE CLIMBER): Continue home sertraline Assessment & Plan (11/01/2021 1:41 PM CDT): -Cont Clonazapam nightly and Sertraline 100 Assessment & Plan (10/31/2021 5:51 PM CDT): -Cont Clonazapam nightly and Sertraline 100 Coronary artery disease 08/18/2021 Overview (08/18/2021): Added automatically from request for surgery [id number] Assessment & Plan (12/13/2022 6:51 PM CDT): S/p LHC and PCI 08/2021: RCA and LCx, 10/2021: LAD and diagonal -Cont home Plavix 75, atorvastatin 40 + losartan 12.5 Assessment & Plan (09/18/2022 1:45 PM TREE CLIMBER): S/p PCI 3/22 - plavix and xarelto on hold for procedure - metop as above - continue statin Assessment & Plan (09/17/2022 9:57 AM TREE CLIMBER): S/p PCI 3/22 - plavix and xarelto on hold for procedure - metop as above - continue statin Assessment & Plan (09/16/2022 10:20 AM TREE CLIMBER): S/p PCI 3/22 - plavix and xarelto on hold for procedure - metop as above - continue statin Assessment & Plan (09/15/2022 9:12 AM TREE CLIMBER): S/p PCI 11/01 - plavix and xarelto on hold for procedure - metop as above - continue statin Assessment & Plan (09/14/2022 11:08 AM TREE CLIMBER): S/p PCI 11/01 - plavix and xarelto on hold for procedure - metop as above - continue statin Assessment & Plan (09/13/2022 3:08 PM TREE CLIMBER): S/p PCI 11/01 - plavix and xarelto on hold for procedure - metop as above - continue statin Assessment & Plan (11/01/2021 1:43 PM CDT): Patient with history of severe 3V CAD c/b ischemic cardiomyopathy, HFrEF, severe MR presented for staged PCI -s/p PCI 10/31 to LAD c/b jailed diag 1 with [...] farixga Assessment & Plan (09/18/2022 1:45 PM TREE CLIMBER): EF 40%, 2/2 ischemic CM - taking lasix as needed at home - BNP elevated on admission, not clinically volume overloaded on exam - s/p 1u pRBC /, will hold further IVF - s/p lasix IV 40mg x1 09/14, will hold further diuresis at this time as pt appears dry, Cr improved w/ gentle IVF, will continue to be cautious w/ IVF given reduced EF - repeat TTE w/ reduced EF, normal IVC - cards c/s- appreciate recs Assessment & Plan (09/17/2022 9:57 AM TREE CLIMBER): EF 40%, 2/2 ischemic CM - taking [...] recs Assessment & Plan (09/16/2022 10:20 AM TREE CLIMBER): EF 40%, 2/2 ischemic CM - taking [...] recs Assessment & Plan (09/15/2022 9:11 AM TREE CLIMBER): EF 40%, 2/2 ischemic CM - taking [...] recs Assessment & Plan (09/14/2022 11:08 AM TREE CLIMBER): EF 40%, 2/2 ischemic CM - taking lasix as needed at home - BNP elevated on admission, not clinically volume overloaded on exam - s/p 1u pRBC 2/, will hold further IVF - will give lasix IV 40mg x1 2/2 - repeat TTE - cards c/s- appreciate recs Assessment & Plan (09/13/2022 3:11 PM TREE CLIMBER): EF 40%, 2/2 ischemic CM - taking lasix as needed at home - BNP elevated on admission, not clinically volume overloaded on exam - s/p 1u pRBC 2/, will hold further IVF - will give [...] 03/2020 - appears comfortable upon transfer to [facility], exam improved with IV diuresis [...] holding BB - NPO after midnight for LH today - strict I & O, daily [...] 03/2020 - appears comfortable upon transfer to [facility], exam improved with IV diuresis - diuresis with furosemide 40mg IVP bid for now, will likely need maintenance oral diuretic for discharge -sob significantly improved - continue losartan for afterload reduction, bp remains above goa - repeat echo pending - NPO after midnight for [facility] in am - strict I & O, [...] 03/2020 - appears comfortable upon transfer to [facility], exam improved with IV diuresis [...] 03/2020 - appears comfortable upon transfer to [facility], warm and wet on exam [...] (02/17/2021): Added automatically from request for surgery [id number] Assessment & Plan (06/27/2024 3:48 PM TREE CLIMBER): Based on today's blood work she is [...] (02/17/2021): Added automatically from request for surgery [id number] Deep vein thrombosis (DVT) associated with COVID -19 09/13/2020 Assessment & Plan (09/18/2022 1:45 PM TREE CLIMBER): Hold home xarelto for procedure as above Assessment & Plan (09/17/2022 9:57 AM TREE CLIMBER): Hold home xarelto for procedure as above Assessment & Plan (09/16/2022 10:20 AM TREE CLIMBER): Hold home xarelto for procedure as above Assessment & Plan (09/15/2022 9:12 AM TREE CLIMBER): Hold home xarelto for procedure as above Assessment & Plan (09/14/2022 11:08 AM TREE CLIMBER): Hold home xarelto for procedure as above Assessment & Plan (09/13/2022 3:13 PM TREE CLIMBER): Hold home xarelto for procedure as above [...] 07/03/2020 Assessment & Plan (07/04/2020 11:44 AM TREE CLIMBER): CT C/A/P 07/02 showed extensive portal venous [...] dc. Will need outpatient heme f/u for alf AC management. - Switched from Xarelto to Hep gtt - OSH CT not able to be uploaded to [facility], but viewable from disc. It was a non- con CT, no ascites noted then. - Liver US with Doppler 07/03 showing complete thrombosis of the main, right and left portal vein w/ portal venous gas and large volume ascites. - GI considering CT Angio for further evaluation, possibly Sunday Leukocytosis 07/03/2020 Assessment & Plan (07/04/2020 11:28 AM TREE CLIMBER): Unclear etiology, likely related to underlying GI [...] (04/29/2020): Added automatically from request for surgery [id number] Gastroesophageal reflux disease 02/11/2020 Overview (02/11/2020): Added automatically from request for surgery [id number] Assessment & Plan (06/27/2024 3:44 PM TREE CLIMBER): The patient will continue Protonix Assessment & Plan (11/01/2021 1:41 PM CDT): -Cont home PPI Assessment & Plan (10/31/2021 5:47 PM CDT): -Cont home PPI Assessment & Plan (04/20/2021 9:37 AM CDT): Denies melena, however, has chronic anemia and had IV iron infusion last week - continue PPI - follow CBC Assessment & Plan (04/19/2021 10:28 AM CDT): Denies melena, however, has chronic anemia and had IV iron infusion last week - continue PPI - follow CBC Assessment & Plan (04/18/2021 8:39 AM CDT): Denies melena, however, has chronic anemia and had IV iron infusion last week - continue PPI - follow CBC Assessment & Plan (04/17/2021 11:17 AM CDT): Denies melena, however, has chronic anemia and had IV iron infusion last week - continue PPI - follow CBC Assessment & Plan (04/16/2021 11:48 AM CDT): Denies melena, however, has chronic anemia and had IV iron infusion last week - continue PPI - follow CBC Assessment & Plan (07/04/2020 11:33 AM TREE CLIMBER): - Cont PPI daily Assessment & Plan (07/03/2020 11:50 AM TREE CLIMBER): - Cont PPI daily Assessment & Plan (07/02/2020 1:59 PM TREE CLIMBER): - Cont PPI daily Assessment & Plan (07/01/2020 2:59 PM TREE CLIMBER): - Cont PPI daily Assessment & Plan (06/30/2020 2:10 PM TREE CLIMBER): - Cont PPI IV BID Assessment & Plan (06/29/2020 2:04 PM TREE CLIMBER): - Cont PPI IV BID Assessment & Plan (06/28/2020 2:09 PM TREE CLIMBER): - Cont PPI IV BID Assessment & Plan (06/27/2020 6:05 AM TREE CLIMBER): Currently starting pantoprazole 40 mg IV b.i.d. pending evaluation for GI bleed. Dysphagia 02/11/2020 Overview (02/11/2020): Added automatically from request for surgery [id number] Allergic rhinitis 08/11/2019 Periodic limb movement disorder 08/11/2019 Assessment & Plan (11/01/2021 1:40 PM CDT): -Cont home Ropinirole 0.5 Assessment & Plan (10/31/2021 5:44 PM CDT): -Cont home Ropinirole 0.5 Bronchiectasis without acute exacerbation 2018 Assessment & Plan (04/24/2024 10:12 PM CDT): Flutter valve use daily Start NAC She may benefit from vest therapy in the future Assessment & Plan (07/04/2020 11:33 AM TREE CLIMBER): History of bronchiectasis per imaging and mild [...] now Assessment & Plan (07/03/2020 12:53 PM TREE CLIMBER): History of bronchiectasis per imaging and mild [...] now Assessment & Plan (07/02/2020 2:00 PM TREE CLIMBER): History of bronchiectasis per imaging and mild obstructive pulmonary disease per PFTs with patient recently prescribed albuterol and Symbicort which she reports she does not take as she does not really have any pulmonary symptoms except for when she was recently hospitalized with COVID-19 - Continue to monitor for now Assessment & Plan (07/01/2020 3:00 PM TREE CLIMBER): History of bronchiectasis per imaging and mild obstructive pulmonary disease per PFTs with patient recently prescribed albuterol and Symbicort which she reports she does not take as she does not really have any pulmonary symptoms except for when she was recently hospitalized with COVID-19 - Continue to monitor for now Assessment & Plan (06/30/2020 2:10 PM TREE CLIMBER): History of bronchiectasis per imaging and mild obstructive pulmonary disease per PFTs with patient recently prescribed albuterol and Symbicort which she reports she does not take as she does not really have any pulmonary symptoms except for when she was recently hospitalized with COVID-19. - Continue to monitor for now Assessment & Plan (06/29/2020 2:04 PM TREE CLIMBER): History of bronchiectasis per imaging and mild obstructive pulmonary disease per PFTs with patient recently prescribed albuterol and Symbicort which she reports she does not take as she does not really have any pulmonary symptoms except for when she was recently hospitalized with COVID-19. - Continue to monitor for now Assessment & Plan (06/28/2020 2:09 PM TREE CLIMBER): History of bronchiectasis per imaging and mild obstructive pulmonary disease per PFTs with patient recently prescribed albuterol and Symbicort which she reports she does not take as she does not really have any pulmonary symptoms except for when she was recently hospitalized with COVID-19. - Continue to monitor for now Assessment & Plan (06/27/2020 6:03 AM TREE CLIMBER): History of bronchiectasis per imaging and mild [...] 07/10/2018 Assessment & Plan (08/15/2019 12:53 PM TREE CLIMBER): - 73 y.o. woman with balance problems for 8 years that began in 2012 at age 66 as a sense of [...] worsens Assessment & Plan (07/07/2019 11:49 AM TREE CLIMBER): - 73 y.o. 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 Although, pt and family report that patient has been strict with her diet. 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 - GI c/s for inpatient scopes as above Assessment & Plan (06/29/2020 2:03 PM TREE CLIMBER): Continue gluten and wheat free diet once allowed to eat pending planned procedures. - GI c/s for inpatient scopes as above Assessment & Plan (06/28/2020 2:07 PM TREE CLIMBER): Continue gluten and wheat free diet once allowed to eat pending planned procedures. - GI c/s for inpatient scopes as above Assessment & Plan (06/27/2020 6:03 AM TREE CLIMBER): Continue gluten and wheat free diet once allowed to eat pending planned procedures. 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 -I d/w GI biliary - plan for EUS-guided biopsy today Assessment & Plan (06/17/2018 12:43 PM TREE CLIMBER): -seen on OSH chest CT after review by our radiologists. They recommend standard protocol C/A/P CT with contrast to better evaluate -add on LDH Pericardial effusion 06/15/2018 Assessment & Plan (06/27/2020 6:07 AM TREE CLIMBER): History of duodenal ulcer. Continue PPI as above. Assessment & Plan (06/18/2018 10:11 AM TREE CLIMBER): -reported large pericardial effusion, but only small here on echo and on review of OSH CT -possibly related to mediastinal mass Assessment & Plan (06/17/2018 12:49 PM TREE CLIMBER): -reported large pericardial effusion, but only small here on echo and on review of OSH CT -possibly related to mediastinal mass -further imaging as above. Assessment & Plan (06/16/2018 11:08 AM TREE CLIMBER): Transferred from OSH with c/f new pericardial [...] 05/18/2018 Assessment & Plan (07/04/2020 11:30 AM TREE CLIMBER): History of RA, PMR and fibromyalgia followed by rheumatology Dr. Robertson and managed with methotrexate. Patient reports being out of methotrexate for 2 weeks and being unable to contact her silk trimmer during this period of time. - Cont holding methotrexate, may resume at pr Assessment & Plan (07/03/2020 11:14 AM TREE CLIMBER): History of RA, PMR and fibromyalgia followed by rheumatology Dr. Robertson and managed with methotrexate. Patient reports being out of methotrexate for 2 weeks and being unable to contact her silk trimmer during this period of time. - Cont holding methotrexate in setting of ALEXANDRA, may resume at dc Assessment & Plan (07/02/2020 1:59 PM TREE CLIMBER): History of RA, PMR and fibromyalgia followed by rheumatology Dr. Robertson and managed with methotrexate. Patient reports being out of methotrexate for 2 weeks and being unable to contact her silk trimmer during this period of time. - Cont holding methotrexate in setting of ALEXANDRA, may resume at dc Assessment & Plan (07/01/2020 2:58 PM TREE CLIMBER): History of RA, PMR and fibromyalgia followed by rheumatology Dr. Robertson and managed with methotrexate. Patient reports being out of methotrexate for 2 weeks and being unable to contact her silk trimmer during this period of time. - Cont holding methotrexate in setting of ALEXANDRA, may resume at dc Assessment & Plan (06/30/2020 2:09 PM TREE CLIMBER): History of RA, PMR and fibromyalgia followed by rheumatology Dr. Robertson and managed with methotrexate. Patient reports being out of methotrexate for 2 weeks and being unable to contact her silk trimmer during this period of time. - Cont holding methotrexate in setting of ALEXANDRA - Touch base with Rheumatology regarding refills Assessment & Plan (06/29/2020 2:03 PM TREE CLIMBER): History of RA, PMR and fibromyalgia followed by rheumatology Dr. Robertson and managed with methotrexate. Patient reports being out of methotrexate for 2 weeks and being unable to contact her silk trimmer during this period of time. - Cont holding methotrexate in setting of ALEXANDRA -Touch base with Rheumatology regarding refills Assessment & Plan (06/28/2020 1:58 PM TREE CLIMBER): History of RA, PMR and fibromyalgia followed by rheumatology Dr. Robertson and managed with methotrexate. Patient reports being out of methotrexate for 2 weeks and being unable to contact her silk trimmer during this period of time. - Cont holding methotrexate in setting of ALEXANDRA -Touch base with Rheumatology regarding refills Assessment & Plan (06/27/2020 6:08 AM TREE CLIMBER): History of RA, PMR and fibromyalgia followed by rheumatology Dr. Robertson and managed with methotrexate. Patient reports being at a methotrexate for 2 weeks and being unable to contact her silk trimmer during this period of time. -given acute renal failure reported by the patient at the outside hospital, it may have actually been beneficial that she was not taking methotrexate during this time. -follow admission creatinine, continue holding methotrexate for now -touch base with Rheumatology regarding refills Assessment & Plan (06/18/2018 10:09 AM TREE CLIMBER): -Serologic workup for underlying rheumatic disease unremarkable. No active synovitis on exam. -Largely resolved. Assessment & Plan (06/17/2018 12:45 PM TREE CLIMBER): -Serologic workup for underlying rheumatic disease unremarkable. No active synovitis on exam. Assessment & Plan (06/16/2018 11:12 AM TREE CLIMBER): Noted joint pains, diffusely, mainly left shoulder. [...] 8 Assessment & Plan (07/07/2020 4:12 PM TREE CLIMBER): Hx chronic diarrhea, possible celiac, initially bloody, [...] PRN. Assessment & Plan (07/04/2020 11:25 AM TREE CLIMBER): Hx of chronic diarrhea in setting of [...] <7 Assessment & Plan (07/03/2020 12:57 PM TREE CLIMBER): Hx of chronic diarrhea in setting of [...] <7 Assessment & Plan (07/02/2020 2:05 PM TREE CLIMBER): Hx of chronic diarrhea in setting of [...] recs Assessment & Plan (07/01/2020 3:08 PM TREE CLIMBER): Hx of chronic diarrhea in setting of [...] recs Assessment & Plan (06/30/2020 2:13 PM TREE CLIMBER): Hx of chronic diarrhea in setting of [...] EGD/C-scope Assessment & Plan (06/29/2020 1:59 PM TREE CLIMBER): Hx of chronic diarrhea in setting of [...] signed Assessment & Plan (06/28/2020 2:14 PM TREE CLIMBER): Hx of chronic diarrhea in setting of [...] signed Assessment & Plan (06/27/2020 6:14 AM TREE CLIMBER): Patient with chronic diarrhea in setting of [...] signed Assessment & Plan (06/18/2018 10:10 AM TREE CLIMBER): Resolved with gluten-free diet, although biopsies weren't consistent with celiac Assessment & Plan (06/17/2018 12:45 PM TREE CLIMBER): Resolved with gluten-free diet Assessment & Plan (06/16/2018 11:00 AM TREE CLIMBER): Resolved. Assessment & Plan (06/15/2018 5:37 AM [...] 05/17/2018 Assessment & Plan (06/18/2018 10:10 AM TREE CLIMBER): -cont therapeutic Lovenox (holding dose for procedure today) Assessment & Plan (06/17/2018 12:47 PM TREE CLIMBER): -cont therapeutic Lovenox Assessment & Plan (06/15/2018 5:37 AM CDT): On Lovenox at home. -Will hold lovenox at this time given possibility for hemorrhagic component to effusion and possible need for drain. Assessment & Plan (05/22/2018 12:03 AM CDT): INR down to <2 today, started on Hep gtt, will hold on AM of 10/10 for scope Heme consulted for elevated INR, [...] oxybutynin Assessment & Plan (07/04/2020 11:29 AM TREE CLIMBER): - Cont oxybutynin Assessment & Plan (07/03/2020 11:14 AM TREE CLIMBER): - Cont oxybutynin Assessment & Plan (07/02/2020 1:59 PM TREE CLIMBER): - Cont oxybutynin Assessment & Plan (07/01/2020 2:58 PM TREE CLIMBER): - Cont oxybutynin Assessment & Plan (06/30/2020 2:10 PM TREE CLIMBER): - Cont oxybutynin - Cr now improving, maykel shaffer'justin Assessment & Plan (06/29/2020 2:03 PM TREE CLIMBER): - Cont oxybutynin - Cr now improving, maykel shaffer'd Assessment & Plan (06/28/2020 2:00 PM TREE CLIMBER): - Cont oxybutynin - Cr now improving, will dc brar and do a void trial Assessment & Plan (06/27/2020 6:07 AM TREE CLIMBER): Resume oxybutynin. Currently with Brar in place. Pending creatinine will remove Brar and attempt voiding trial. Assessment & Plan (05/17/2018 2:16 AM CDT): Continue home Mybretriq Hypothyroidism 05/17/2016 Assessment & Plan (12/13/2022 6:48 PM CDT): -Cont home Synthroid 137 Assessment & Plan (09/18/2022 1:45 PM TREE CLIMBER): Continue home synthroid - check TSH given RVR- wnl Assessment & Plan (09/17/2022 9:58 AM TREE CLIMBER): Continue home synthroid - check TSH given RVR- wnl Assessment & Plan (09/16/2022 10:21 AM TREE CLIMBER): Continue home synthroid - check TSH given RVR- wnl Assessment & Plan (09/15/2022 9:12 AM TREE CLIMBER): Continue home synthroid - check TSH given RVR- wnl Assessment & Plan (09/14/2022 11:09 AM TREE CLIMBER): Continue home synthroid - check TSH given RVR- wnl Assessment & Plan (09/13/2022 3:10 PM TREE CLIMBER): Continue home synthroid - check TSH given [...] now Assessment & Plan (07/04/2020 11:29 AM TREE CLIMBER): - TSH 2.16, continue home Synthroid Assessment & Plan (07/03/2020 11:13 AM TREE CLIMBER): - TSH 2.16, continue home Synthroid Assessment & Plan (07/02/2020 1:59 PM TREE CLIMBER): - TSH 2.16, continue home Synthroid Assessment & Plan (07/01/2020 2:59 PM TREE CLIMBER): - TSH 2.16, continue home Synthroid Assessment & Plan (06/30/2020 2:10 PM TREE CLIMBER): - TSH 2.16, continue home Synthroid Assessment & Plan (06/29/2020 2:03 PM TREE CLIMBER): - TSH 2.16, continue home Synthroid Assessment & Plan (06/28/2020 1:57 PM TREE CLIMBER): - TSH 2.16, continue home Synthroid Assessment & Plan (06/27/2020 6:06 AM TREE CLIMBER): Add on TSH, continue home Synthroid. Assessment & Plan (06/18/2018 10:10 AM TREE CLIMBER): -cont levothyroxine Assessment & Plan (06/17/2018 12:47 PM TREE CLIMBER): -cont levothyroxine Assessment & Plan (06/16/2018 11:03 AM TREE CLIMBER): Checked TSH and progressive elevation to 9.10 [...] protocol Assessment & Plan (06/18/2018 10:09 AM TREE CLIMBER): Continue home nocturnal CPAP at 9 Assessment & Plan (06/17/2018 12:45 PM TREE CLIMBER): Continue home CPAP at 9. Compliant with CPAP as inpatient. Assessment & Plan (06/16/2018 11:03 AM TREE CLIMBER): Continue home CPAP at 9. Compliant with [...] above Assessment & Plan (07/04/2020 11:29 AM TREE CLIMBER): - Hold losartan in setting of ALEXANDRA, normotensive, may resume at dc Assessment & Plan (07/03/2020 11:13 AM TREE CLIMBER): - Hold losartan in setting of ALEXANDRA, normotensive, may resume at dc Assessment & Plan (07/02/2020 1:59 PM TREE CLIMBER): - Hold losartan in setting of ALEXANDRA, may resume at dc Assessment & Plan (07/01/2020 2:59 PM TREE CLIMBER): - Hold losartan in setting of ALEXANDRA, may resume at dc Assessment & Plan (06/30/2020 2:10 PM TREE CLIMBER): - Hold losartan in setting of ALEXANDRA Assessment & Plan (06/29/2020 2:03 PM TREE CLIMBER): - Hold losartan in setting of ALEXANDRA Assessment & Plan (06/28/2020 1:56 PM TREE CLIMBER): - Holding losartan in setting of ALEXANDRA Assessment & Plan (06/27/2020 6:06 AM TREE CLIMBER): Holding losartan 25 mg daily given reported acute renal failure on presentation and concern for GI bleed/diarrhea. Can restart alternative antihypertensive as needed. Assessment & Plan (05/17/2018 2:14 AM CDT): Patient is on losartan 25 mg qday. She was hypotensive on admission to 87/55. Hold in the setting of hypotension. 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 With some somnolence 07/05. Improved after holding home klonopin. Also holding ropinirole. Developed some mild withdrawal tremors with holding klonopin so resumed today and will recommend to taper on outpatient basis given propensity for delirium. 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 Assessment & Plan (07/03/2020 12:52 PM TREE CLIMBER): Appears confused/lethargic over the last few days, [...] and fall precautions - Will hold some RENTAL CAR FERRY DRIVER affecting meds Assessment & Plan (07/02/2020 2:08 PM TREE CLIMBER): Appears confused over the last few days, [...] precautions Assessment & Plan (07/01/2020 3:24 PM TREE CLIMBER): Appeared confused yesterday and today, daughter reports [...] 10/31/2021 Assessment & Plan (07/04/2020 11:33 AM TREE CLIMBER): - Recovered - diagnosed 05/23, repeat covid Ag testing negative Assessment & Plan (07/03/2020 12:12 PM TREE CLIMBER): - Recovered - diagnosed 05/22, repeat covid Ag testing negative Assessment & Plan (07/02/2020 1:59 PM TREE CLIMBER): - Recovered - diagnosed 05/22, repeat covid Ag testing negative Assessment & Plan (07/01/2020 2:59 PM TREE CLIMBER): - Recovered - diagnosed 05/22, repeat covid Ag testing negative Assessment & Plan (06/30/2020 2:10 PM TREE CLIMBER): Recovered - diagnosed 05/22, repeat covid Ag testing negative Assessment & Plan (06/29/2020 2:06 PM TREE CLIMBER): Recovered - diagnosed 05/22, repeat covid Ag testing negative Assessment & Plan (06/28/2020 2:10 PM TREE CLIMBER): History of COVID-19 infection initially diagnosed in May 22, 2020 at an OSH. Labs not currently available for review. Patient required hospitalization for decreased saturations although is now recovered. - Repeat COVID swab negative here Assessment & Plan (06/27/2020 6:18 AM TREE CLIMBER): History of COVID-19 infection initially diagnosed in [...] 10/31/2021 Assessment & Plan (07/06/2020 3:49 PM TREE CLIMBER): Urine culture with pansensitive E coli at OSH. S/p 5 days of abx at OSH and 5d CTX here. Assessment & Plan (07/04/2020 11:29 AM TREE CLIMBER): Urine culture with pansensitive E coli at OSH. Unclear what antibiotic she was receiving although presumably she had received 5 days of it. - Repeat UA 2+ LE, 11-20 wbc 3+ yeast - Urine cx no growth, no urinary symptoms - Completed 5 days of CTX here Assessment & Plan (07/03/2020 11:13 AM TREE CLIMBER): Urine culture with pansensitive E coli at OSH. Unclear what antibiotic she was receiving although presumably she has received 5 days of it. - Repeat UA 2+ LE, 11-20 wbc 3+ yeast - no urinary symptoms - Urine cx no growth - Completed 5 days of CTX here on 07/01 Assessment & Plan (07/02/2020 1:58 PM TREE CLIMBER): Urine culture with pansensitive E coli at OSH. Unclear what antibiotic she was receiving although presumably she has received 5 days of it. - Repeat UA 2+ LE, 11-20 wbc 3+ yeast - no urinary symptoms - Urine cx no growth - Completed 5 days of CTX here on 07/01 Assessment & Plan (07/01/2020 2:58 PM TREE CLIMBER): Urine culture with pansensitive E coli at OSH. Unclear what antibiotic she was receiving although presumably she has received 5 days of it. - Repeat UA 2+ LE, 11-20 wbc 3+ yeast - no urinary symptoms - Urine cx no growth - Continue CTX Assessment & Plan (06/30/2020 2:09 PM TREE CLIMBER): Urine culture with pansensitive E coli. Unclear what antibiotic she was receiving although presumably she has received 5 days of it. - Repeat UA 2+ LE, 11-20 wbc 3+ yeast - no urinary symptoms - Urine cx no growth - Continue CTX for now Assessment & Plan (06/29/2020 2:03 PM TREE CLIMBER): Urine culture with pansensitive E coli. Unclear what antibiotic she was receiving although presumably she has received 5 days of it. - Repeat UA 2+ LE, 11-20 wbc 3+ yeast - no urinary symptoms - Urine cx no growth - Continues to have rising leukocytosis, will resume CTX and CTM Assessment & Plan (06/28/2020 2:13 PM TREE CLIMBER): Urine culture with pansensitive E coli. Unclear what antibiotic she was receiving although presumably she has received 5 days of it. - Repeat UA 2+ LE, 11-20 wbc 3+ yeast - no urinary symptoms - Urine cx no growth - Dc empiric CTX Assessment & Plan (06/27/2020 6:14 AM TREE CLIMBER): Urine culture with pansensitive E coli. Unclear what antibiotic she was receiving although presumably she has received 5 days of it. Will repeat UA and decide on re-initiation of antibiotics at that point. Fatigue 08/11/2019 10/31/2021 VTE (venous thromboembolism) 05/22/2019 10/31/2021 Assessment & Plan (07/04/2020 11:32 AM TREE CLIMBER): History of unprovoked PE and lower extremity [...] gtt. Assessment & Plan (07/03/2020 12:52 PM TREE CLIMBER): History of unprovoked PE and lower extremity [...] 07/02 Assessment & Plan (07/02/2020 1:58 PM TREE CLIMBER): History of unprovoked PE and lower extremity [...] EGD/C-scope Assessment & Plan (07/01/2020 2:57 PM TREE CLIMBER): History of unprovoked PE and lower extremity [...] EGD/C-scope Assessment & Plan (06/30/2020 2:08 PM TREE CLIMBER): History of unprovoked PE and lower extremity [...] hold Assessment & Plan (06/29/2020 2:04 PM TREE CLIMBER): History of unprovoked PE and lower extremity [...] hold Assessment & Plan (06/28/2020 2:08 PM TREE CLIMBER): History of unprovoked PE and lower extremity [...] hold Assessment & Plan (06/27/2020 6:05 AM TREE CLIMBER): History of unprovoked PE and lower extremity [...] 06/18/2018 Assessment & Plan (06/16/2018 10:57 AM TREE CLIMBER): Resolving sepsis due to PNA. Febrile and [...] Doxy for possible ehrlichia though it is november and unlikely. Can likely peel off after [...] 07/30/2018 Assessment & Plan (07/07/2019 11:41 AM TREE CLIMBER): 2 Elevated INR 05/20/2018 05/21/2018 Assessment & [...] Can discuss restarting these medications on discharge. Immunizations Immunization Administration Dates Next Due Influenza, Quad, Adjuvantate d, Intramuscular 05/10/2020 Influenza, Quadrivalent, Hig h Dose, Preservative Free, Intrr 10/31/2021 Influenza, Quadrivalent, Spl it, Intramuscular 05/10/2020,05/15/2019,05/28/2018 Influenza, Unspecified 04/13/2022,04/13/2020,10/2018 Pneumococcal Conjugate PCV 13 06/29/2016 Pneumococcal Polysaccharide PPV23 07/31/2017 Social History Tobacco Use Types Packs/Day Years [...] week 01/24/2023 How often do you attend chur ch or gnosticism services? Never 01/24/2023 Do you belong to any clubs o r organizations such as uatsdin groups, unions, fraternal or athletic groups, or [...] place to sleep or slept in a longterm (including now)? No 01/24/2023 Personal Safety Answer Date Recorded Have you ever been in or are you currently in a harmful physical or emotional relationship or is someone making you feel afraid or unsafe? Denies 01/16/2023 Comments No Sex and Gender Information Value Date Recorded Sex Assigned at Not on file Legal Sex Female 6:53 AM TREE CLIMBER Gender Identity Not on file Sexual Orientation Not on file Last Filed Vital Signs Vital Sign Reading Time Taken Comments Blood Pressure 129/79 08/01/2024 2:53 PM TREE CLIMBER Pulse 66 08/01/2024 2:53 PM TREE CLIMBER Temperature 36.7 C (98 F) 08/01/2024 2:53 PM TREE CLIMBER Respiratory Rate 16 08/01/2024 2:53 PM TREE CLIMBER Oxygen Saturation 98% 08/01/2024 2:53 PM TREE CLIMBER Inhaled Oxygen Concentration - - Weight 78.2 kg (172 lb 6.4 oz) 08/01/2024 1:00 P M TREE CLIMBER Height 175.3 cm (5' 9 ) 07/30/2024 2:01 PM TREE CLIMBER Body Mass Index 25.46 07/30/2024 2:01 PM TREE CLIMBER Plan of Treatment Not on file Medical Devices Implanted Type Area Fuel Cell Engineer Device Identifier Shelf Expiration Date Model / Serial / Lot [employer] Vascade Mvp 6-12fr Venous Closure [id number] - [id number] - [id number] Implanted:Qty: 1 on 12/13/2022 by Yohan Carpenter MD at [facility] Collagen Right: Femoral Vein [employer] 09/12/2024 800-612C- 10U / [id number] / [id number] [employer] Vascade Mvp 6-12fr Venous Closure [id number] - [id number] - [id number] Implanted:Qty: 1 on 12/13/2022 by Yohan Carpenter MD at [facility] Collagen Left: Femoral Vein [employer] 09/12/2024 800-612C- 10U / [id number] 09B / [id number] [employer] Vascade Mvp 6-12fr Venous Closure [id number] - [id number] - [id number] Implanted:Qty: 1 on 12/13/2022 by Yohan Carpenter MD at [facility] Collagen Left: Femoral Vein [employer] 09/12/2024 800-612C- 10U / [id number] / [id number] [employer] Device Closure Vascade Od5 Fr Femoral Artery [id number] - [id number] - [id number] Implanted:Qty: 1 on 12/13/2022 by Yohan Carpenter MD at [facility] Collagen Right: Femoral Vein [employer] 09/04/2024 700-500DX -05U / [id number] / Medtronic U[employer] X [id number] Resolute [place] 3.5mm 2.1-2.7fr 18mm 140cm Rapid Exchange - [id number] Implanted:Qty: 1 on 08/18/2021 by Hero Hernandez MD at [facility] Stent Medtronic Inc 06/10/2024 [id number] / / [id number] [employer] Inc [id number] Stent Coronary De Rx Cocr Ors Msn 2.5x35mm - [id number] Implanted:Qty: 1 on 08/18/2021 by Hero Hernandez MD at [facility] Stent [employer] 02/28/2023 [id number] / / [id number] [employer] [place] [id number] Synergy Xd Monorail 2.75mm 32mm 144cm Delivery System 1 Access - [id number] Implanted:Qty: 1 on 10/31/2021 by Hero Hernandez MD at [facility] Stent [employer] 11/18/2022 [id number] / / [id number] [employer] [id number] Synergy Xd Monorail 3mm 16mm 144cm Delivery System 1 Access Port - [id number] Implanted:Qty: 1 on 10/31/2021 by Hero Hernandez MD at [facility] Stent [employer] 01/19/2023 [id number] / / [id number] [employer] [id number] Synergy Xd Monorail 2.25mm 12mm 144cm Delivery System 1 Access - [id number] Implanted:Qty: 1 on 10/31/2021 by Hero Hernandez MD at [facility] Stent [employer] 06/08/2023 [id number] / / [id number] [employer] [id number] Synergy Xd Monorail 2.25mm 16mm 144cm Delivery System 1 Access - [id number] Implanted:Qty: 1 on 10/31/2021 by Hero Hernandez MD at [facility] Stent [employer] 12/14/2022 [id number] / / [id number] Breast Bilateral: Breast Explanted Type Area Fuel Cell Engineer Device Identifier Shelf Expiration Date Model / Serial / Lot Implantable Loop Recorder-07/09 Implanted:06/14 (Quantity not on file) Explanted:03/13 (Quantity not on file) Implantable Loop Recorder N/A: Heart [employer] / / Procedures Procedure Name Priority Date/Time Associated Diagnosis Comments COLONOSCOPY 03/10/2021 11:25 AM CDT HEPATITIS C ANTIBODY Routine 08/23/2018 11:13 AM TREE CLIMBER Eosinophilia from Last 3 Months or Most Recently Relevant to Health Maintenance Results * COLONOSCOPY (03/10/2021 11:25 AM CDT) Anatomical Region Laterality Modality Other Narrative Procedure Note Rosy Valverde MD - 03/10/2021 11:25 AM CDT ENDOSCOPY LAB Patient Name: Diane Silva Procedure Date: 03/10/2021 11:25 AM Date of : 1945 Admit Type: Outpatient Age: 75 Gender: Female Attending MD: Rosy Valverde M.D. Room: [facility] ENDOSCOPY ROOM 01 Note Status: Finalized Procedure: [...] The scope was passed under direct vision.The [id number] was introduced through the anusand advanced to [...] During normal business hours - [facility] [place] Coordinator: [phone] After hours, evening, nights, weekends and holidays- Please call the hospital marshmallow machine operator at and ask for the GI fellow mortgage loan computation clerk. - . Attending Participation: I personally performed the entire procedure. Electronically Signed By: Rosy Valverde M.D. Rosy Valverde M.D. 03/10/2021 11:51:46 AM Number of Addenda: 0 Note Initiated On: 03/10/2021 11:25 AM Rosy Valverde MD ENDOSCOPY PROCEDURES Fin al Result * Hepatitis C antibody (08/23/2018 11:13 AM TREE CLIMBER) Hep C Ab Nonreactive Nonreactive [facility] Comment: Interpretive Data Positive results should be confirmed by a molecular method. If positive, a second separately collected sample should be submitted for Hepatitis C Virus (HCV) RNA Detection and Quantitation by Real-Time Reverse Screenplay Writer-PCR (RT-PCR). Current interpretive data was last revised on 2016. Blood specimen (specimen) 08/23/2018 11:13 AM TREE CLIMBER 08/23/2018 2:46 PM TREE CLIMBER Narrative [facility]ISA [facility] - 08/24/2018 10:41 AM TREE CLIMBER Lilian Garcia MD LAB MICROBIOLOGY - GENERAL OR DERABLES Edited Result - Final [facility] Department [place] [address] from Last 3 Months or Most Recently Relevant to Health Maintenance Insurance MEDICARE [facility] Address: [address] [address] [employer] MEDICARE T MEDICARE T MEDICARE Advance Directives For more information, please contact: [phone] * Full Code (Latest Code Status on [...] 9:03 AM 09/22/2022 11:59 PM Care Teams Barmaid Relationship Specialty Start Date End Date Tera Seals DO [address] [place] [address] PCP - General Family Medicine 05/05/22 Nl-Neuromuscle, [facility] - [address] [place] [address] Referring Physician Neurology 04/18/18 Ferny Kearns MD PhD [address] [place] [address] Referring Physician Cardiology 04/21/21
--- OUTSIDE RECORDS SUMMARY | 2024-09-29 14:56 | XMS_ITS | Clinical Summary ---
Author Organization [facility] Address [address] [place] [address] Care Team Providers Care Associate Manager Affiliate Marketing Name Role Phone Unavailable Primary Care Provider Unavailabl e Medications Medication Sig Dispensed Refills Start Date End Date Status levothyroxine 112 MCG tabletIndications:Acqui red hypothyroidism Take 1 tablet by mouth daily. 90 tablet 3 03/22/2021 Active Social History Tobacco Use Types Packs/Day Years Used Date Smoking Tobacco: Never Assessed Inadequate Housing Answer Date Recorded Social Determinants: Housing (Overall Score Help er) 0 03/31/2019 Sex and Gender Information Value Date Recorded Sex Assigned at Not on file Gender Identity Not on file Sexual Orientation Not on file Plan of Treatment Health Maintenance Due Date Last Done Comments Depression Screening 1957 DTaP/Tdap/Td Vaccine (1 - Tdap) 1965 Pneumococcal Vaccine 50+ (1 of 1 - PCV) 1996 Shingles Vaccine (1 of 2) 1996 Osteoporosis Screening 2011 Respiratory Syncytial Virus (RSV) Vaccine 60+ (1 - 1-dose 75+ series) 2021 COVID-19 Vaccine ( - 2023-2 5 season) 2024 Influenza Vaccine (#1) 2024 HPV Vaccine Aged Out No longer eligi ble based on patient's age to complete this topic Hepatitis A Vaccine Aged Out No longe r eligible based on patient's age to complete this topic Hepatitis B Vaccine (For Physician/APC Discussion) Aged Out No longer elig ible based on patient's age to complete this topic Meningococcal Serogroup B Vaccine Aged Out No longer eligible based on patient's age to complete this topic Meningococcal Vaccine Aged Out No natalie neena eligible based on patient's age to complete this topic
--- OUTSIDE RECORDS SUMMARY | 2024-09-29 14:56 | XMS_ITS | Patient Health Summary ---
Author Organization [facility] Address [address] [place] [address] Care Team Providers Care Physician Office Secretary Name Role Phone Unavailable Primary Care Provider Unavailabl e Note from [facility],non-owned Affiliates and Associated Physician Practices is amultiple site organization consisting of ambulatory clinics and hospital sitesin [place], [place], [place]. This disclosure is being madepursuant to the Care Everywhere program and may not contain all information available regarding this patient. Last updated 18.[facility] Allergies * Gluten Meal(Diarrhea) -Medium Criticality * Wheat Bran(Diarrhea) -Low Criticality Medications * Be aware that medications may not be up to date on this document. Alwaysverify current medications with the patient. * albuterol HFA (PROVENTIL; VENTOLIN; PROAIR) 108 (90 Base) MCG/ACT inhaler (Started 09/19/2021) as directed * carvedilol (COREG) 12.5 MG tablet(Started 12/29/2021) 6.25 mg once daily as needed * clonazePAM (KLONOPIN) 1 MG tablet(Started 11/01/2021) 1 mg at bedtime * clopidogrel (PLAVIX) 75 MG tablet(Started 11/01/2021) 75 mg once daily * furosemide (LASIX) 40 MG tablet(Started 04/21/2021) 40 mg 2 times daily * Glucosamine-Chondroitin 3920-5378 MG/30ML Take 1,500 mg by mouth 2 times daily * levothyroxine (SYNTHROID) 112 MCG tablet(Started 01/27/2021) 0.112 mcg once daily * Magnesium Oxide 250 MG Take 500 mg by mouth 2 times daily * oxybutynin CR 24hr (DITROPAN-XL) 10 MG tablet(Started 04/22/2021) 10 mg once daily * pantoprazole EC (PROTONIX) 40 MG tablet(Started 12/29/2021) 40 mg once daily * pilocarpine HCl (SALAGEN) 5 MG tablet Take 5 mg by mouth 2 times daily * rivaroxaban (XARELTO) 10 MG tablet(Started 09/29/2021) 10 mg once daily * rOPINIRole (REQUIP) 2 MG tablet 2 mg 2 times daily * sertraline (ZOLOFT) 100 MG tablet(Started 12/29/2021) 100 mg once daily * valACYclovir (VALTREX) 1 GM tablet as needed * Ascorbic Acid 500 MG once daily * Probiotic Product (PROBIOTIC PO) Take by mouth as needed * Zinc Sulfate (ZINC-220 PO) Take by mouth as directed * CALCIUM-VITAMIN D PO Take by mouth once daily Active Problems Problem Noted Date Diagnosed Date Sleep apnea 02/07/2022 High cholesterol 02/07/2022 COVID-19 02/07/2022 RLS (restless legs syndrome) 02/07/2022 Celiac disease 02/07/2022 VTE (venous thromboembolism) 02/07/2022 HTN (hypertension) 02/07/2022 OAB (overactive bladder) 02/07/2022 Hypothyroidism 02/07/2022 ARF (acute renal failure) 02/07/2022 Polyarthralgia 02/07/2022 GERD (gastroesophageal reflux disease) Social History Tobacco Use Types Packs/Day Years Used Date Smoking Tobacco: Never Smokeless Tobacco: Never Alcohol Use Standard Drinks/Week Comments Yes 0 (1 standard drink = 0.6 oz pur e alcohol) Rarely Sex and Gender Information Value Date Recorded Sex Assigned at Not on file Gender Identity Not on file Sexual Orientation Not on file Last Filed Vital Signs Vital Sign Reading Time Taken Comments Blood Pressure 163/83 02/07/2022 10:43 AM CDT Pulse 58 02/07/2022 10:43 AM CDT Temperature - - Respiratory Rate - - Oxygen Saturation - - Inhaled Oxygen Concentration - - Weight 70.3 kg (155 lb) 02/07/2022 10:43 AM CDT Height 174 cm (5' 8.5 ) 02/07/2022 10:43 AM CDT Body Mass Index 23.22 02/07/2022 10:43 AM CDT Procedures * DERMATOPATHOLOGY(Performed 04/19/2022) Performed for Dermatitis, unspecified * GTT 2 HR (75G) NON GESTATIONAL(Performed 03/28/2022) Performed for Idiopathic progressive neuropathy * IMMUNOFIXATION BLOOD(Performed 03/01/2022) Performed for Idiopathic progressive neuropathy Results * DERMATOPATHOLOGY (04/19/2022 3:33 AM CDT) Case Report Dermatopathology Report Case: [id number] Authorizing Provider: Rosario Robles, Collected: 04/19/2022 03:33 AM JIN Ordering Location: [facility] DermPath Lab Received: 04/20/2022 10:46 AM Pathologist: Lynnette Saxena MD Specimens: A) - Skin, right ventral wrist B) - Skin, right dorsal hand 12:17 PM CDT DERMATOPATHOLOGY LABORATORY Addendum 1 Regarding Specimen A, Grocott's methenamine silver (GMS) stain fails to highlight fungal elements in the available sections. 12:17 PM CDT DERMATOPATHOLOGY LABORATORY Addendum electronically signed by Lynnette Saxena MD on 04/24/2022 at 12:17 PM Final Diagnosis Specimen A. SKIN, right ventral wrist: HYPERKERATOSIS, ACANTHOSIS, AND DERMAL FIBROSIS (L90.5) (see microscopic description and comment) Specimen B. SKIN, right dorsal hand: SUBEPIDERMAL BLISTER WITH NEUTROPHILS (L13.8) (see microscopic description and comment) 12:17 PM CDT DERMATOPATHOLOGY LABORATORY Clinical History A-B: Folliculitis vs. Prurigo vs. Others 12:17 PM CDT DERMATOPATHOLOGY LABORATORY Gross Description Specimen A: Received is one formalin filled container labeled with the patient's name and designated right ventral wrist. The specimen consists of a shave biopsy measuring [id number]. Jar 0. Specimen B: Received is one formalin filled container labeled with the patient's name and designated right dorsal hand. The specimen consists of a shave biopsy measuring [id number]. Jar 0. 2 12:17 PM [facility] DERMATOPATHOLOGY LABORATORY Microscopic Description Specimen A. SKIN, right ventral wrist: There is hyperkeratosis with focal intracorneal serum and neutrophils, as well as acanthosis beneath which there are vascular proliferation, dermal fibrosis, and a mildly edematous stroma. An eccrine duct with the overlying acrosyringium is noted in association with these histologic features. A hair follicle is not seen on additional deeper sections that were obtained and reviewed. COMMENT: The histologic differential diagnosis includes changes associated with healing miliaria given the findings in specimen B, prurigo nodularis with excoriation changes, and healing skin changes. Folliculitis cannot be entirely excluded. A GMS stain will be performed and reported as an addendum. Specimen B. SKIN, right dorsal hand: There are subepidermal and intraepidermal blisters containing neutrophils. Beneath this blister, there are vascular proliferation, dermal fibrosis, and a mildly edematous stroma. An eccrine duct with the overlying acrosyringium is noted in association with these histologic features. Eosinophils are not seen. Grocott's methenamine silver (GMS) stain fails to highlight fungal elements in the available sections. Tissue Gram stain is negative for bacteria in the sections examined. A hair follicle is not seen on additional deeper sections that were obtained and reviewed. COMMENT: The histologic differential diagnosis includes miliaria pustulosa, miliaria profunda with excoriation, an immunobullous disorder, bullous lupus erythematosus, and an infectious process despite negative GMS and Gram stains. Pustular psoriasis was also considered, although less favored. Folliculitis cannot be entirely excluded. Consideration should be given to submitting tissue for direct immunofluorescence if clinically indicated. In addition, clinical correlation with culture is recommended if clinically indicated. 2 12:17 PM [facility] DERMATOPATHOLOGY LABORATORY Disclaimer An external and internal positive and negative controls are appropriate for the histochemical, immunohistochemical and immunofluorescence stain(s) in this case (if any), except where stated explicitly. The performance characteristics of the stain(s) cited in this report were developed and its performance characteristic determined by the Dermatopathology Laboratory at [facility], directed by Dr. Edilma Slade. These tests need not be, and therefore are not, approved by the [place] Food and Drug Administration. The tests are used for clinical purposes. Billing Codes Specimen Charges Stain Charges 65394 30847 1 1 [id number] 93708 1 1 2 12:17 PM CDT DERMATOPATHOLOGY LABORATORY Embedded Images 2 12:17 PM CDT DERMATOPATHOLOGY LABORATORY Pathology/Cytology TISSUE SPECIMEN FROM SKIN / Unknown 04/19/2022 3:33 AM CDT 04/20/2022 10:46 AM CDT Miscellaneous samples (specimen) TISSUE SPECIMEN FROM SKIN / Unknown 04/19/2022 3:33 AM CDT 04/20/2022 10:46 AM CDT Rosario Robles PA-C LAB - PATHOL OGY/CYTOLOGY ORDERABLES Performing Organization Address [facility]/ZIP Co de Phone Number DERMATOPATHOLOGY LABORATORY [facility] - Department of Dermatology [address] [phone] * GTT 2 HR (75G) NON GESTATIONAL (03/28/2022) Blood BLOOD SPECIMEN / Unknown Xiomara Dumont MD LAB - CHEMISTRY ORD ERABLES OTHER LAB * IMMUNOFIXATION BLOOD (03/01/2022) Blood BLOOD SPECIMEN / Unknown Xiomara Dumont MD LAB - CHEMISTRY ORD ERAJHONNY OTHER LAB
--- OUTSIDE RECORDS SUMMARY | 2024-09-29 14:56 | XMS_ITS | Encounter Summary ---
Author Organization [facility] Address [address] [place] [address] Phone Care Team Providers Care District Plant Superintendent Name Role Phone Yousif Benton MD Primary Care Provider [phone] Unknown, Notinfile Primary Care Provider Unavail able Yousif Benton MD Primary Care Provider [phone] -[facility]cle, [facility] - Unavailable Unavailab Micheal George MD Primary Care Provider Yoselin Garcia RN Unavailable [phone] Ferny Kearns MD PhD Unavailable [phone] Tera Seals DO Primary Care Provider Charu Galdamez DIE MAKER APPRENTICE Unavailable [phone] Encounter Details Date Type Department Care Team (Late st Contact Info) Description 10/25/2015 Orders Only [facility] ADULT CLINCONV Seda Dueñas MD [address] [address] [place] [address] Social History Tobacco Use Types Packs/Day Years Used Date Smoking Tobacco: Never Comments Unknown Sex and Gender Information Value Date Recorded Sex Assigned at Not on file Legal Sex Female 6:53 AM VENETIAN BLIND CLEANER Gender Identity Not on file Sexual Orientation Not on file documented as of this encounter Plan of Treatment Not on file documented as of this encounter Procedures Procedure Name Priority Date/Time Associated Diagnosis Comments CARDIOLOGY REPORT 10/25/2015 documented in this encounter Results * CARDIOLOGY REPORT (10/25/2015) Anatomical Region Laterality Modality Other Seda Dueñas MD CV CARDIAC SERVICES PROCED URES Final Result documented in this encounter Visit Diagnoses Not on filedocumented in this encounter Additional Health Concerns Infection Onset Date Last Indicated Resolved Time COVID: Suspected 09/22/2021 09/22/2021 09/23/2021 3:06 AM VENETIAN BLIND CLEANER COVID: Suspected 11/11/2022 11/11/2022 11/11/2022 1:37 PM CDT documented as of this encounter Care Teams District Plant Superintendent Relationship Specialty Start Date End Date Yousif Benton MD [address], [place] [address] PCP - General 12/27/16 06/07/17 Unknown, Notinfile PCP - General 06/08/17 06/17/17 Yousif Benton MD [address] [address] PCP - General 06/18/17 03/12/20 Micheal Burton MD [address] [place] [address] PCP - General Family Medicine 03/13/20 05/04/22 Tera Seals DO [address] [place] [address] PCP - General Family Medicine 05/05/22 Aga-Tawny Valdes [address] [place] [address] Referring Physician Neurology 04/18/18 Yoselin Garcia, RN [address] [facility] [address] [place] [address] [facility] Outpatient Hplc Chemist 01/28/21 02/24/21 Ferny Kearns MD PhD [address] [facility] [address] [place] [address] Referring Physician Cardiology 04/21/21 Charu Galdamez, DIE MAKER APPRENTICE [address] [facility] ([facility]) Mailstop [phone] [place] [address] RASHIDA Outpatient Hplc Chemist 01/24/23 02/20/23 documented as of this encounter
--- OUTSIDE RECORDS SUMMARY | 2024-09-29 14:56 | XMS_ITS | Encounter Summary ---
Author Organization [facility] Address [address] [place] [address] Phone Care Team Providers Care Electrician Telephone Name Role Phone Nl-Tanwy Valdes - Unavailable Unavailab Ferny Harris MD PhD Unavailable [phone] Tera Seals DO Primary Care Provider Charu Galdamez DRUG SAFETY SPECIALIST Unavailable [phone] Encounter Details Date Type Department Care Team (Latest Contact Info) Description 12/29/2022 Orders Only [facility] Scanning, Provider Social History Tobacco Use Types [...] neighbors? More than three times a week 11/10/2022 How often do you get togethe r with friends or relatives? Once a week 11/10/2022 How often do you attend chur ch or buddhism services? Never 11/10/2022 Do you belong to any clubs o r organizations such as mandaen groups, unions, fraternal or athletic groups, or school groups? No 11/10/2022 How often do you attend meet ings of the clubs or organizations you belong to? Never 11/10/2022 Are you , , di vorced, , never , or living with a partner? 11/10/2022 AUDIT-C Answer Date Recorded Q1: How often [...] care, and heating? Not hard at all 11/10/2022 PHQ-2 Answer Date Recorded PHQ-2 Total Score (If total score is 3 or more points, staff should administer the PHQ-9) 0 12/13/2022 Hunger Vital Sign Answer Date Recorded Within the past 12 months, y ou worried that your food would run out before you got the money to buy more. Never true 11/11/19 23 Within the past 12 months, t he food you bought just didn't last and you didn't have money to get more. Never true 11/10/2022 PRAPARE - Transportation Answer Date Re corded In the past 12 months, has l ack of transportation kept you from medical appointments or from getting medications? No 10/13 In the past 12 months, has l ack of transportation kept you from meetings, work, or from getting things needed for daily living? No 11/10/2022 Housing Stability Vital Sign Answer Gerard e Recorded In the last 12 months, was t here a time when you were not able to pay the mortgage or rent on time? No 11/10/2022 In the last 12 months, how many places have you lived? 1 11/10/2022 In the last 12 months, was t here a time when you did not have a steady place to sleep or slept in a long-term (including now)? No 11/10/2022 Comments No Sex and Gender Information Value Date Recorded Sex Assigned at Not on file Legal Sex Female 6:53 AM FELLER OPERATOR Gender Identity Not on file Sexual Orientation Not on file documented as of this encounter Plan of Treatment Not on file documented as of this encounter Procedures Procedure Name Priority Date/Time Associated Diagnosis Comments SCAN - LABS 12/29/2022 documented in this encounter Results * SCAN - LABS (12/29/2022) us Provider Scanning Final Result documented in this encounter Visit Diagnoses Not on filedocumented in this encounter Care Teams Electrician Telephone Relationship Specialty Start Date End Date Tera Seals DO [address] [place] [address] PCP - General Family Medicine 05/05/22 Nl-Neuromuscle, [facility] - [address] [place] [address] Referring Physician Neurology 04/18/18 Ferny Kearns MD PhD [facility] [place] [address] Referring Physician Cardiology 04/21/21 Charu Galdamez, [facility] [address] [facility] ([facility] Mailstop [phone] [place] [address] SHOP Outpatient Administration Manager 01/24/23 02/20/23 documented as of this encounter
--- OUTSIDE RECORDS SUMMARY | 2024-09-29 14:56 | XMS_ITS | Encounter Summary ---
Author Organization [facility] Address [address] [place] [address] Care Team Providers Care Principle Software Engineer Name Role Phone Nl-Neuromuscle, [facility] - Unavailable Unavailab Micheal George MD Primary Care Provider Yoselin Garcia RN Unavailable [phone] Ferny Kearns MD PhD Unavailable Tera Seals DO Primary Care Provider Charu Galdamez [facility] Unavailable Encounter Details Date Type Department Care Team (Late st Contact Info) Description 09/09/2020 Telephone [facility] [address] [facility] [address] Jessica Ramos, RT Social History Tobacco Use Types Packs/Day Years Used Date Smoking Tobacco: Never Smokeless Tobacco: Never Alcohol Use Standard Drinks/Week Comments No 0 (1 standard drink = 0.6 oz pur e alcohol) Comments No Sex and Gender Information Value Date Recorded Sex Assigned at Not on file Legal Sex Female 6:53 AM BLEACH MAKER Gender Identity Not on file Sexual Orientation Not on file documented as of this encounter Plan of Treatment Not on file documented as of this encounter Visit Diagnoses Not on filedocumented in this encounter Additional Health Concerns Infection Onset Date Last Indicated Resolved Time COVID: Suspected 09/22/2021 09/22/2021 09/23/2021 3:06 AM BLEACH MAKER COVID: Suspected 11/11/2022 11/11/2022 11/11/2022 1:37 PM CDT documented as of this encounter Care Teams Principle Software Engineer Relationship Specialty Start Date End Date Micheal Burton MD [address] [place] [address] PCP - General Family Medicine 03/13/20 05/04/22 Tera Seals DO [address] [place] [address] PCP - General Family Medicine 05/05/22 Nl-Neuromuscle, [facility] [address] [place] [address] Referring Physician Neurology 04/18/18 Yoselin Garcia, RN [address] [facility] [address] [place] [address] SHOP Outpatient Files Supervisor 01/28/21 02/24/21 Ferny Kearns MD PhD [address] [facility] [address] [place] [address] Referring Physician Cardiology 04/21/21 Charu Galdamez, ELECTRIC FORK OPERATOR [address] [facility] ([facility]) Mailstop [phone] [place] [address] SHOP Outpatient Files Supervisor 01/24/23 02/20/23 documented as of this encounter
--- OUTSIDE RECORDS SUMMARY | 2024-09-29 14:56 | XMS_ITS | Encounter Summary ---
Author Organization [facility] Address [address] [place] [address] Phone Care Team Providers Care Investigation Division Sergeant Name Role Phone Yousif Benton MD Primary Care Provider [phone] Unknown, Notinfile Primary Care Provider Unavail able Yousif Benton MD Primary Care Provider [phone] Nl-Neuromuscle, [place] - Unavailable Unavailab Micheal George MD Primary Care Provider Yoselin Garcia RN Unavailable [phone] Ferny Kearns MD PhD Unavailable [phone] Tera Seals DO Primary Care Provider Charu Galdamez TOOL MAKER Unavailable [phone] Encounter Details Date Type Department Care Team (Late st Contact Info) Description 11/13/2013 Orders Only [facility] CAR CLINCONV Provider, MD Maame [address] [place] [address] Social History Tobacco Use Types Packs/Day Years Used Date Smoking Tobacco: Never Assessed Comments Unknown Sex and Gender Information Value Date Recorded Sex Assigned at Not on file Legal Sex Female 6:53 AM ANALYTICAL LAB ANALYST Gender Identity Not on file Sexual Orientation Not on file documented as of this encounter Plan of Treatment Not on file documented as of this encounter Procedures Procedure Name Priority Date/Time Associated Diagnosis Comments CARDIOLOGY REPORT 11/13/2013 documented in this encounter Results * CARDIOLOGY REPORT (11/13/2013) Anatomical Region Laterality Modality Other Narrative 11/13/2013 Ordered by an unspecified provider. us Historical Provider CV CARDIAC SERVICES PATRICK MOLINA Final Result documented in this encounter Visit Diagnoses Not on filedocumented in this encounter Additional Health Concerns Infection Onset Date Last Indicated Resolved Time COVID: Suspected 09/22/2021 09/22/2021 09/23/2021 3:06 AM ANALYTICAL LAB ANALYST COVID: Suspected 11/11/2022 11/11/2022 11/11/2022 1:37 PM CDT documented as of this encounter Care Teams Investigation Division Sergeant Relationship Specialty Start Date End Date Yousif Benton MD [address] [address] PCP - General 12/27/16 06/07/17 Unknown, Notinfile PCP - General 06/08/17 06/17/17 Yousif Benton MD [address] [place] [address] PCP - General 06/18/17 03/12/20 Micheal Burton MD [address] [place] [address] PCP - General Family Medicine 03/13/20 05/04/22 Tera Seals DO [address] [place] [address] PCP - General Family Medicine 05/05/22 Nl-NeuromuscTawny stanley - [address] [place] [address] Referring Physician Neurology 04/18/18 Yoselin Garcia, RN [address] [facility] [address] [place] [address] RASHIDA Outpatient Slitter And Rewinder 01/28/21 02/24/21 Ferny Kearns MD PhD [address] [facility] [address] [place] [address] Referring Physician Cardiology 04/21/21 Charu Galdamez LCSW [address] [facility] ([facility]) Mailstop [phone] [place] [address] RASHIDA Outpatient Slitter And Rewinder 01/24/23 02/20/23 documented as of this encounter
--- OUTSIDE RECORDS SUMMARY | 2024-09-29 14:56 | XMS_ITS | Encounter Summary ---
Author Organization [facility] Address [address] [place] [address] Phone Care Team Providers Care Campus Administrative Assistant Name Role Phone Yousif Benton MD Primary Care Provider [phone] Unknown, Notinfile Primary Care Provider Unavail able Yousif Benton MD Primary Care Provider [phone] Nl-Neuromuscle, [place]y - Unavailable Unavailab Micheal George MD Primary Care Provider Yoselin Garcia RN Unavailable [phone] Ferny Kearns MD PhD Unavailable [phone] Tera Seals DO Primary Care Provider Charu Galdamez STEAM TRAP MAN Unavailable [phone] Encounter Details Date Type Department Care Team (Late st Contact Info) Description 07/30/2013 Orders Only [facility] CAR CLINCONV Provider, MD Maame [address] [place] [address] Social History Tobacco Use Types Packs/Day Years Used Date Smoking Tobacco: Never Assessed Comments Unknown Sex and Gender Information Value Date Recorded Sex Assigned at Not on file Legal Sex Female 6:53 AM SEED CORN MANAGER PRODUCTION Gender Identity Not on file Sexual Orientation Not on file documented as of this encounter Plan of Treatment Not on file documented as of this encounter Procedures Procedure Name Priority Date/Time Associated Diagnosis Comments CARDIOLOGY REPORT 07/30/2013 documented in this encounter Results * CARDIOLOGY REPORT (07/30/2013) Anatomical Region Laterality Modality Other Narrative 07/30/2013 Ordered by an unspecified provider. us Historical Provider CV CARDIAC SERVICES PATRICK MOLINA Final Result documented in this encounter Visit Diagnoses Not on filedocumented in this encounter Additional Health Concerns Infection Onset Date Last Indicated Resolved Time COVID: Suspected 09/22/2021 09/22/2021 09/23/2021 3:06 AM SEED CORN MANAGER PRODUCTION COVID: Suspected 11/11/2022 11/11/2022 11/11/2022 1:37 PM CDT documented as of this encounter Care Teams Campus Administrative Assistant Relationship Specialty Start Date End Date Yousif Benton MD [address] [address] PCP - General 12/27/16 06/07/17 Unknown, Notinfile PCP - General 06/08/17 06/17/17 Yousif Benton MD [address] [place] [address] PCP - General 06/18/17 03/12/20 Micheal Burton MD [address] [place] [address] PCP - General Family Medicine 03/13/20 05/04/22 Tera Seals DO [address] [place] [address] PCP - General Family Medicine 05/05/22 Nl-NeuromuscTawny stanley - [address] [place] [address] Referring Physician Neurology 04/18/18 Yoselin Garcia, RN [address] [facility] [address] [place] [address] RASHIDA Outpatient Pill Packer 01/28/21 02/24/21 Ferny Kearns MD PhD [address] [facility] [address] [place] [address] Referring Physician Cardiology 04/21/21 Charu Galdamez LCSW [address] [facility] ([facility]) Mailstop [phone] [place] [address] RASHIDA Outpatient Pill Packer 01/24/23 02/20/23 documented as of this encounter
--- OUTSIDE RECORDS SUMMARY | 2024-09-29 14:56 | XMS_ITS | Referral Summary ---
Author Organization [facility] Address [address] [place] [address] Care Team Providers Care Jack Spinner Name Role Phone Unavailable Primary Care Provider Unavailabl e Source Comments [facility],non-owned Affiliates and Associated Physician Practices is amultiple site organization consisting of ambulatory clinics and hospital sitesin [place], [place], [place] and [place]. This disclosure is being madepursuant to the Care Everywhere program and may not contain all information available regarding this patient. Last updated 18.[facility] Allergies Active Allergy Reactions Criticality Noted Date Comments Gluten Meal Diarrhea Medium 06/15/2018 Wheat Bran Diarrhea Low 12/31/2012 Medications * Be aware that medications may not be up to date on this document. Alwaysverify current medications with the patient. Medication Sig Dispensed Refills Start Date End Date Status albuterol HFA (PROVENTIL; VENTOLIN; PROAIR) 108 (90 Base) MCG/ACT inhaler as directed 09/19/2021 Active carvedilol (COREG) 12.5 MG tablet 6.25 mg once daily as needed 12/29/2021 Active clonazePAM (KLONOPIN) 1 MG tablet 1 mg at bedtime 11/01/2021 Active clopidogrel (PLAVIX) 75 MG tablet 75 mg once daily 11/01/2021 Active furosemide (LASIX) 40 MG tablet 40 mg 2 times daily 04/21/2021 Activ e Glucosamine-Chondroit in 0897-9082 MG/30ML Take 1,500 mg by mouth 2 times daily Active levothyroxine (SYNTHROID) 112 MCG tablet 0.112 mcg once daily 01/27/2021 Active Magnesium Oxide 250 MG Take 500 mg by mouth 2 times daily Active oxybutynin CR 24hr (DITROPAN-XL) 10 MG tablet 10 mg once daily 04/22/2021 Active pantoprazole EC (PROTONIX) 40 MG tablet 40 mg once daily 12/29/2021 Active pilocarpine HCl (SALAGEN) 5 MG tablet Take 5 mg by mouth 2 times daily Active rivaroxaban (XARELTO) 10 MG tablet 10 mg once daily 09/29/2021 Active rOPINIRole (REQUIP) 2 MG tablet 2 mg 2 times daily Active sertraline (ZOLOFT) 100 MG tablet 100 mg once daily 12/29/2021 Acti ve valACYclovir (VALTREX) 1 GM tablet as needed Act araceli Ascorbic Acid 500 MG once daily Acti ve Probiotic Product (PROBIOTIC PO) Take by mouth as needed Active Zinc Sulfate (ZINC-220 PO) Take by mouth as directed Active CALCIUM-VITAMIN D PO Take by mouth once daily Active Active Problems Problem Noted Date Diagnosed Date Sleep apnea 02/07/2022 High cholesterol 02/07/2022 COVID-19 02/07/2022 Overview (02/07/2022): 05/2020,09/2021 RLS (restless legs syndrome) 02/07/2022 Celiac disease [...] Mass Index 23.22 02/07/2022 10:43 AM CDT Plan of Treatment Not on file [facility]/Famil y Self 1945 [id number] [place] [address] KENDIANE TSAI Personal/Famil y Spouse [address] [place] [address] [facility] Personal/Famil y Spouse [address] [place] [address]
--- OUTSIDE RECORDS SUMMARY | 2024-09-29 14:56 | XMS_ITS | Encounter Summary ---
Author Organization [facility] Address Formerly [facility] [place] [address] Care Team Providers Care Talent Advisor Name Role Phone Yousif Benton MD Primary Care Provider [phone] Micheal Burton MD Primary Care Provider [phone] Tera Seals DO Primary Care Provider [phone] Encounter Details Date Type Department Care Team (Late st Contact Info) Description 01/18/2019 Abstract SFL CONVERSION [address] [place] [address] , Generic ConversionMD Social History Tobacco Use Types Packs/Day Years Used Date Smoking Tobacco: Never Assessed Comments Unknown Sex and Gender Information Value Date Recorded Sex Assigned at Not on file Legal Sex Female 2:44 AM CDT Gender Identity Not on file Sexual Orientation Not on file documented as of this encounter Plan of Treatment Not on file documented as of this encounter Visit Diagnoses Not on filedocumented in this encounter Care Teams Talent Advisor Relationship Specialty Start Date End Date Yousif Benton MD [address] [place] [address] PCP - General FAMILY PRACTICE 04/18/19 09/12/20 Micheal Burton MD [address] [place] [address] PCP - General FAMILY PRACTICE 09/13/20 07/31/22 Tera Seals DO [address] [place] [address] PCP - General FAMILY PRACTICE 08/01/22 documented as of this encounter
--- OUTSIDE RECORDS SUMMARY | 2024-09-29 14:56 | XMS_ITS | Encounter Summary ---
Author Organization [facility] Address [address] [place] [address] Phone Care Team Providers Care Electric Fan Assembler Name Role Phone Yousif Benton MD Primary Care Provider [phone] Nl-Neuromuscle, Wusm - Unavailable Unavailab Micheal George MD Primary Care Provider Yoselin Garcia RN Unavailable [phone] Ferny Kearns MD PhD Unavailable [phone] Tera Seals DO Primary Care Provider Charu Galdamez [facility] Unavailable [phone] Encounter Details Date Type Department Care Team (Latest Contact Info) Description 11/01/2017 Orders Only [facility] Scanning, Provider Social History Tobacco Use Types Packs/Day Years Used Date Smoking Tobacco: Never Comments Unknown Sex and Gender Information Value Date Recorded Sex Assigned at Not on file Legal Sex Female 6:53 AM INFORMATICS SPEC Gender Identity Not on file Sexual Orientation Not on file documented as of this encounter Plan of Treatment Not on file documented as of this encounter Procedures Procedure Name Priority Date/Time Associated Diagnosis Comments SCAN - LABS 11/01/2017 documented in this encounter Results * SCAN - LABS (11/01/2017) us Provider Scanning Final Result documented in this encounter Visit Diagnoses Not on filedocumented in this encounter Additional Health Concerns Infection Onset Date Last Indicated Resolved Time COVID: Suspected 09/22/2021 09/22/2021 09/23/2021 3:06 AM INFORMATICS SPEC COVID: Suspected 11/11/2022 11/11/2022 11/11/2022 1:37 PM CDT documented as of this encounter Care Teams Electric Fan Assembler Relationship Specialty Start Date End Date Yousif Benton MD [address] [place] [address] PCP - General 06/18/17 03/12/20 Micheal Burton MD [address] [place] [address] PCP - General Family Medicine 03/13/20 05/04/22 Tera Seals DO [address] [place] [address] PCP - General Family Medicine 05/05/22 Nl-Neuromuscle, [facility] [address] [place] [address] Referring Physician Neurology 04/18/18 Yoselin Garcia RN [address] [address] [facility] Outpatient Mogul Operator 01/28/21 02/24/21 Ferny Kearns MD PhD [address] [address] Referring Physician Cardiology 04/21/21 Charu Galdamez, [facility] [address] [facility] ([facility] Mailstop [phone] [place] [address] [facility] Outpatient Mogul Operator 01/24/23 02/20/23 documented as of this encounter
--- OUTSIDE RECORDS SUMMARY | 2024-09-29 14:56 | XMS_ITS | Clinical Summary ---
Author Organization [facility] Address [address] [place] [address] Phone Care Team Providers Care Kindergarten Assistant Name Role Phone Unavailable Primary Care Provider Unavailabl e Social History Tobacco Use Types Packs/Day Years Used Date Smoking Tobacco: Never Assessed Comments Unknown Sex and Gender Information Value Date Recorded Sex Assigned at Not on file Legal Sex Female 3:14 PM HEAT TREAT INSPECTOR Gender Identity Not on file Sexual Orientation Not on file Plan of Treatment Not on file
--- OUTSIDE RECORDS SUMMARY | 2024-09-29 14:56 | XMS_ITS | Encounter Summary ---
Author Organization [facility] Address [address] [place] [address] Phone Care Team Providers Care Clinical Nurse Specialist Name Role Phone Nl-Neuromuscle, Wusm - Unavailable Unavailab Ferny Harris MD PhD Unavailable [phone] Tera Seals DO Primary Care Provider Encounter Details Date Type Department Care Team (Late st Contact Info) Description 09/29/2024 Orders Only [facility] Gastroenterology [address] [facility] [address] [place] [address] [place] [address] Imani Villalobos RN Celiac disease (Primary Dx); Routine health maintenance Social History Tobacco Use Types Packs/Day Years Used Date Smoking Tobacco: Never Passive Smoke Exposure: Past Smokeless Tobacco: Never Alcohol Use Standard Drinks/Week [...] week 01/24/2023 How often do you attend [facility] or religion services? Never 01/24/2023 Do you belong to any clubs o r organizations such as restorationist groups, unions, fraternal or athletic groups, or [...] place to sleep or slept in a snf (including now)? No 01/24/2023 Personal Safety Answer Date Recorded Have you ever been in or are you currently in a harmful physical or emotional relationship or is someone making you feel afraid or unsafe? Denies 01/16/2023 Comments No Sex and Gender Information Value Date Recorded Sex Assigned at Not on file Legal Sex Female 6:53 AM ADJUSTER ARBITRATOR Gender Identity Not on file Sexual Orientation Not on file documented as of this encounter Progress Notes * Imani Villalobos RN - 09/29/2024 7:53 AM CST 09/29/2024 - Ttg ordered. STER ARBITRATOR documented in this encounter Plan of Treatment Scheduled Orders Name Type Priority Associated Diagnoses Orde r Schedule Tissue transglutaminase IgA (TGG-IgA Ab) Lab Routine Celiac disease Routine health maintenance Expected: 09/29/2024, Expires: 09/29/2025 documented as of this encounter Visit Diagnoses Diagnosis Celiac disease- Primary Routine health maintenance Unspecified examination documented in this encounter Care Teams Clinical Nurse Specialist Relationship Specialty Start Date End Date Tera Seals DO [address] [place] [address] PCP - General Family Medicine 05/05/22 Nl-Neuromuscle, [facility] - [address] [place] [address] Referring Physician Neurology 04/18/18 Ferny Kearns MD PhD [address] [place] [address] Referring Physician Cardiology 04/21/21 documented as of this encounter
--- OUTSIDE RECORDS SUMMARY | 2024-09-29 14:56 | XMS_ITS | Encounter Summary ---
Author Organization [facility] Address [address] [place] [address] Phone Care Team Providers Care Public Speaking Instructor Name Role Phone Yousif Benton MD Primary Care Provider [phone] Unknown, Notinfile Primary Care Provider Unavail able Yousif Benton MD Primary Care Provider [phone] Nl-Neuromuscle, [place]y - Unavailable Unavailab Micheal George MD Primary Care Provider Yoselin Garcia RN Unavailable [phone] Ferny Kearns MD PhD Unavailable [phone] Tera Seals DO Primary Care Provider Charu Galdamez [facility] Unavailable [phone] Encounter Details Date Type Department Care Team (Late st Contact Info) Description 08/14/2013 Orders Only [facility]CONV Provider, MD Maame [address] [place] [address] Social History Tobacco Use Types Packs/Day Years Used Date Smoking Tobacco: Never Assessed Comments Unknown Sex and Gender Information Value Date Recorded Sex Assigned at Not on file Legal Sex Female 6:53 AM MERCURY PURIFIER Gender Identity Not on file Sexual Orientation Not on file documented as of this encounter Plan of Treatment Not on file documented as of this encounter Procedures Procedure Name Priority Date/Time Associated Diagnosis Comments CARDIOLOGY REPORT 08/14/2013 documented in this encounter Results * CARDIOLOGY REPORT (08/14/2013) Anatomical Region Laterality Modality Other Narrative 08/14/2013 Ordered by an unspecified provider. us Historical Provider [facility] PATRICK MOLINA Final Result documented in this encounter Visit Diagnoses Not on filedocumented in this encounter Additional Health Concerns Infection Onset Date Last Indicated Resolved Time COVID: Suspected 09/22/2021 09/22/2021 09/23/2021 3:06 AM MERCURY PURIFIER COVID: Suspected 11/11/2022 11/11/2022 11/11/2022 1:37 PM CDT documented as of this encounter Care Teams Public Speaking Instructor Relationship Specialty Start Date End Date Yousif Benton MD [address] [address] PCP - General 12/27/16 06/07/17 Unknown, Notinfile PCP - General 06/08/17 06/17/17 Yousif Benton MD [address] [address] PCP - General 06/18/17 03/12/20 Micheal Burton MD [address] [place] [address] PCP - General Family Medicine 03/13/20 05/04/22 Tera Seals DO [address] [place] [address] PCP - General Family Medicine 05/05/22 [facility]uromuscTawny [facility] - [address] [place] [address] Referring Physician Neurology 04/18/18 Yoselin Garcia, RN [address] [facility] [address] [place] [address] RASHIDA Outpatient Veterinarian Small Animal 01/28/21 02/24/21 Ferny Kearns MD PhD [address] [facility] [address] [place] [address] Referring Physician Cardiology 04/21/21 Charu Galdamez LCSW [address] [facility] ([facility] [place] [place] Mailstop [phone] [place] [address] RASHIDA Outpatient Veterinarian Small Animal 01/24/23 02/20/23 documented as of this encounter
--- OUTSIDE RECORDS SUMMARY | 2024-09-29 14:56 | XMS_ITS | Clinical Summary ---
Author Organization [facility] Address [address] [place] [address] Care Team Providers Care Plasterer Foreman Name Role Phone Tera Seals DO Primary Care Provider [phone] Allergies Active Allergy Reactions Criticality Noted Date Comments Gluten Meal Diarrhea 06/15/2019 Medications Calcium Carbonate-Vit D-Min (CALCIUM 1200) 4629-8611 MG-UNIT Chew Tab 10/02/2017 Active Ascorbic Acid 250 MG Tab Take 1,000 mg by mouth 2 (two) times daily. Active clonazePAM 2 MG tablet Take 1 mg by mouth nightly at bedtime. 3 04/19/2019 Active oxybutynin XL 5 MG 24 hr tablet Take 2 tablets by mouth daily. 10/02/2017 Active XARELTO 20 MG Tab tablet 10 mg nightly. 09/21/2018 Active sertraline 100 MG tablet Take 100 mg by mouth daily. 04/21/2019 Active valACYclovir 1 g tabletIndicatio ns:prn Take 2,000 mg by mouth 2 (two) times daily as needed. Indications: prn Active magnesium oxide 250 MG tablet Take 250 mg by mouth 2 (two) times daily. Active rOPINIRole (REQUIP) 0.5 MG tablet Take 0.5 mg by mouth 2 (two) times daily. Active levothyroxine (SYNTHROID) 112 MCG tablet Take 112 mcg by mouth daily. 07/11/2022 Active pantoprazole EC (PROTONIX) 40 MG tablet Take 40 mg by mouth daily. 06/05/2022 Active clopidogrel (PLAVIX) 75 MG tablet Take 75 mg by mouth daily. Active atorvastatin (LIPITOR) 40 MG tablet Take 40 mg by mouth nightly at bedtime. Active furosemide (LASIX) 40 MG tablet Take 40 mg by mouth daily. 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 GERD (gastroesophageal reflux disease) 8 Resolved Problems Problem Noted Date Diagnosed Date Resolved Date GI bleed 08/02/2022 08/05/2022 Postoperative examination 10/02/2017 Encounter for preventive health examination 09/15/2013 04/23/2020 Immunizations Name Administration Dates Next Due Influenza Adult (Generic) 05/15/2019 Social History Tobacco Use Types Packs/Day Years Used Date Smoking Tobacco: Never Smokeless Tobacco: Never Alcohol Use Standard Drinks/Week Comments Not Currently 0 (1 standard drink = 0.6 oz pur e alcohol) 1 yamila a month AUDIT-C Answer Date Recorded Frequency of Alcohol Consumption Monthly or less 04/22/2019 Average Number of Drinks 1 or 2 019 Frequency of Binge Drinking Not on file 04/13 Comments No Sex and Gender Information Value Date Recorded Sex Assigned at Not on file Legal Sex Female 2:44 AM CDT Gender Identity Not on file Sexual Orientation Not on file Last Filed Vital Signs Vital Sign Reading Time Taken Comments Blood Pressure 154/93 08/05/2022 6:22 AM PATENT CLERK Pulse 83 08/05/2022 6:22 AM PATENT CLERK Temperature 36.6 C (97.9 F) 08/05/2022 6:22 AM PATENT CLERK Respiratory Rate 20 08/04/2022 7:42 PM PATENT CLERK Oxygen Saturation 92% 08/05/2022 6:22 AM PATENT CLERK Inhaled Oxygen Concentration - - Weight 83.3 kg (183 lb 10.3 oz) 08/02/2022 2:14 AM PATENT CLERK Height 172.7 cm (5' 8 ) 08/02/2022 2:14 AM PATENT CLERK Body Mass Index 27.92 08/02/2022 2:14 AM PATENT CLERK Plan of Treatment Health Maintenance Due Date Last Done Comments Hepatitis C 1963 DTaP, Tdap and Td Vaccines (1 - Tdap) 1965 Zoster Vaccines (1 of 2) 1996 Annual Medicare Wellness Visit 2011 RSV Immunization or 60+ Years (1 - 1-dose 75+ series) 2021 COVID-19 Vaccine ( - 2023- season) 2024 Influenza Adult (#1) 2024 05/10/2020, 04/13/2020, 05/15/2019, Additional history exists Pneumococcal Vaccine: 65+ Years Completed 07/31/2017, 06/29/2016 Dexa Scan (General) Completed 01/16/2022 Colorectal Cancer Screening Colonoscopy (10 Years) Discontinued 08/04/2022, 08/04/2022 Meningococcal B Vaccine Aged Out No l onger eligible based on patient's age to complete this topic Meningococcal Vaccine Aged Out No natalie neena eligible based on patient's age to complete this topic RSV Immunizations Under 20 Months Aged Out No longer eligible based on patient's age to complete this topic Goals Goal Patient Goal Type Associated Problems Recent Progress Patient-Stated? Author Family - family caregiver with be involved in care transitions and discharge planning Lifestyle No Hilda Sainz, DELILAH Patient will return to prior living situation and remain independent in ADLs upon discharge from hospital Lifestyle No Hilda Sainz RN Safety Patient/family will have appropriate support at home upon discharge Lifestyle Yes Hilda Sainz RN Procedures Procedure Name Priority Date/Time Associated Diagnosis Comments COLONOSCOPY Routine 08/04/2022 8:56 AM PATENT CLERK BONE DENSITY/DEXA Routine 01/16/2022 3:1 9 PM CDT Osteoporosis, senile from Last 3 Months or Most Recently Relevant to Health Maintenance Results * Colonoscopy (08/04/2022 8:56 AM PATENT CLERK) us Meena Oneill NP GI PROCEDURE ORDERABLES F inal Result * BONE DENSITY/DEXA (01/16/2022 3:19 PM CDT) Anatomical Region Laterality Modality Bone Bone Density 01/16/2022 4:41 PM CDT Impressions 01/16/2022 4:44 PM CDT Impression: BMD measured at AP lumbar spine at WHO category level of osteoporosis. BMD measured at both total hips and both femoral necks at level of osteopenia. Ordered By: BRIGIDA HANNON Interpreted By: Michael Sexton MD, 01/16/2022 4:41 PM Narrative 01/16/2022 4:44 PM CDT Examination: DEXA Bone densitometry EXAM DATE: 01/16/2022 3:19 PM Clinical history: Postmenopausal. Parent with history of hip fracture. Vitamin D use. Screening for osteoporosis. Technique: DEXA bone minimal density evaluation was performed in the AP projection over the lumbar spine and over both hips in the AP projection utilizing standard imaging techniques. Assessment: The BMD measured at the AP spine L1-L4 is 0.666 g/cm? with a T-score of -3.5 and a Z-Score of -1.1. This patient is considered osteoporotic according to the world health organizations (WHO) criteria. Fracture risk is high. Pharmacological treatment, if not already prescribed should be considered. If pharmacological treatment is utilized, a followup bone density chest is recommended in one year to monitor response to therapy. The BMD measured at the femur total left is 0.725 g/cm? with a T-score of -1.8 and a Z-Score of 0.0. The patient is considered osteopenic according to World Health Organization (WHO) criteria. Bone density is between 10 and 25% below young normal. Fracture risk is moderate. Treatment is advised. The BMD measured at the left femoral neck is 0.637 g/sq cm resulting in a T score of -1.9 and a Z score 0.2, values at the WHO category level of osteopenia. The BMD measured at the femur total right is 0.708 g/cm? with a T-score of -1.9 and aZ-Score of -0.1. The patient is considered osteopenic according to World Health Organization (WHO) criteria. Bone density is between 10 and 25% below young normal. Fracture risk is moderate. Treatment is advised. The BMD measured at the right femoral neck is 0.611 g/sq cm resulting in a T score of -2.1 and a Z score 0.0, values at the WHO category level of osteopenia. FRAX results: 10 year probability of major osteoporotic fracture 25% and of hip fracture 16%. Recommendations: All patients should ensure an adequate intake of dietary calcium and vitamin D. The NOF recommend adults under the age of 50 need 1000 mg of calcium and 400-800 IU of vitamin D daily. Effective therapy for the prevention and treatment of osteoporosis include biphosphonates. Follow-up: People with diagnosed cases of osteoporosis or at high risk for fracture should have regular bone mineral density test. For patients eligible for Medicare, routine testing is allowed once every 2 years. Testing frequency can be increased to one year for patients who have rapidly progressing disease, those who are receiving or discontinuing medical therapy to restore bone mass, or have additional risk factors. Based on these results, a followup exam is recommended in no earlier than 2 years for routine follow-up. As early as 1 year to assess efficacy of new medication therapy for treatment of osteoporosis. Procedure Note Michael Sexton MD - 01/16/2022 Examination: DEXA Bone densitometry EXAM DATE: 01/16/2022 3:19 PM Clinical history: Postmenopausal. Parent with history of hip fracture.Vitamin D use. Screening for osteoporosis. Technique: DEXA bone minimal density evaluation was performed in the APprojection over the lumbar spine and over both hips in the AP projectionutilizing standard imaging techniques. Assessment: The BMD measured at the AP spine L1-L4 is 0.666 g/cm? with a T-score of-3.5 and a Z-Score of -1.1. This patient is considered osteoporoticaccording to the world health organizations (WHO) criteria. Fracture riskis high. Pharmacological treatment, if not already prescribed should beconsidered. If pharmacological treatment is utilized, a followup bonedensity chest is recommended in one year to monitor response to therapy. The BMD measured at the femur total left is 0.725 g/cm? with a T-score of-1.8 and a Z-Score of 0.0. The patient is considered osteopenicaccording to World Health Organization (WHO) criteria. Bone density isbetween 10 and 25% below young normal. Fracture risk is moderate.Treatment is advised. The BMD measured at the left femoral neck is 0.637 g/sq cm resulting in aT score of -1.9 and a Z score 0.2, values at the WHO category level ofosteopenia. The BMD measured at the femur total right is 0.708 g/cm? with a T-score of-1.9 and aZ-Score of -0.1. The patient is considered osteopenicaccording to World Health Organization (WHO) criteria. Bone density isbetween 10 and 25% below young normal. Fracture risk is moderate.Treatment is advised. The BMD measured at the right femoral neck is 0.611 g/sq cm resulting in aT score of -2.1 and a Z score 0.0, values at the WHO category level ofosteopenia. FRAX results: 10 year probability of major osteoporotic fracture 25% andof hip fracture 16%. Recommendations: All patients should ensure an adequate intake of dietary calcium andvitamin D. The NOF recommend adults under the age of 50 need 1000 mg ofcalcium and 400-800 IU of vitamin D daily. Effective therapy for theprevention and treatment of osteoporosis include biphosphonates. Follow-up: People with diagnosed cases of osteoporosis or at high risk for fractureshould have regular bone mineral density test. For patients eligible forMedicare, routine testing is allowed once every 2 years. Testing frequencycan be increased to one year for patients who have rapidly progressingdisease, those who are receiving or discontinuing medical therapy torestore bone mass, or have additional risk factors. Based on these results, a followup exam is recommended in no earlier than2 years for routine follow-up. As early as 1 year to assess efficacy ofnew medication therapy for treatment of osteoporosis. Impression: BMD measured at AP lumbar spine at WHO category level of osteoporosis. BMD measured at both total hips and both femoral necks at level ofosteopenia. Ordered By: BRIGIDA HANNON Interpreted By: Michael Sexton MD, 01/16/2022 4:41 PM us Brigida NELSON DEXA Final Resul t from Last 3 Months or Most Recently Relevant to Health Maintenance Insurance MED REPLACE [facility] MEDICARE MED REPLACE [facility] MEDICARE [place] [id number] Advance Directives * Full Code (Latest Code Status on File) Date Activated Date Inactivated Comments 08/02/2022 2:49 AM 08/05/2022 3:20 PM * Full Code Date Activated Date Inactivated Comments 06/03/2020 9:28 PM 06/04/2020 3:31 PM Care Teams Plasterer Foreman Relationship Specialty Start Date End Date Tera Seals DO [address] [place] [address] PCP - General FAMILY PRACTICE 08/01/22
--- OUTSIDE RECORDS SUMMARY | 2024-09-29 14:56 | XMS_ITS | Encounter Summary ---
Author Organization [facility] Address [address] [place] [address] Phone Care Team Providers Care Hr Specialist Name Role Phone Yousif Benton MD Primary Care Provider [phone] Unknown, Notinfile Primary Care Provider Unavail able Yousif Benton MD Primary Care Provider [phone] Nl-Neuromuscle, Tawny - Unavailable Unavailab Micheal George MD Primary Care Provider Yoselin Garcia RN Unavailable [phone] Ferny Kearns MD PhD Unavailable [phone] Tera Seals DO Primary Care Provider Charu Galdamez FIBER HEEL PIECE SHAPER Unavailable [phone] Encounter Details Date Type Department Care Team (Late st Contact Info) Description 01/07/2016 Orders Only [facility] DANGELO CAR CLINCONV Provider, MD Maame [address] [place] [address] Social History Tobacco Use Types Packs/Day Years Used Date Smoking Tobacco: Never Comments Unknown Sex and Gender Information Value Date Recorded Sex Assigned at Not on file Legal Sex Female 6:53 AM SECTION CREWS ACTIVITIES CLERK Gender Identity Not on file Sexual Orientation Not on file documented as of this encounter Plan of Treatment Not on file documented as of this encounter Procedures Procedure Name Priority Date/Time Associated Diagnosis Comments CARDIOLOGY REPORT 01/07/2016 CARDIOLOGY REPORT 01/07/2016 documented in this encounter Results * CARDIOLOGY REPORT (01/07/2016) Anatomical Region Laterality Modality Other Narrative 01/07/2016 Ordered by an unspecified provider. us Historical Provider [facility] CARDIAC SERVICES PROCE DURES Final Result * CARDIOLOGY REPORT (01/07/2016) Anatomical Region Laterality Modality Other Narrative 01/07/2016 Ordered by an unspecified provider. Historical Provider CV CARDIAC SERVICES PROCE DURES Final Result documented in this encounter Visit Diagnoses Not on filedocumented in this encounter Additional Health Concerns Infection Onset Date Last Indicated Resolved Time COVID: Suspected 09/22/2021 09/22/2021 09/23/2021 3:06 AM SECTION CREWS ACTIVITIES CLERK COVID: Suspected 11/11/2022 11/11/2022 11/11/2022 1:37 PM CDT documented as of this encounter Care Teams Hr Specialist Relationship Specialty Start Date End Date Yousif Benton MD [address] [address] PCP - General 12/27/16 06/07/17 Unknown, Notinfile PCP - General 06/08/17 06/17/17 Yousif Benton MD [address] [place] [address] PCP - General 06/18/17 03/12/20 Micheal Burton MD [address] [place] [address] PCP - General Family Medicine 03/13/20 05/04/22 Tera Seals DO [address] [place] [address] PCP - General Family Medicine 05/05/22 Nl-Neuromuscle, [facility] - [address] [place] [address] Referring Physician Neurology 04/18/18 Yoselin Garcia RN [address] [address] [facility] Out[facility] Field Service Consultant 01/28/21 02/24/21 Ferny Kearns MD PhD [address] [address] Referring Physician Cardiology 04/21/21 Charu Galdamez, [facility] [address] [facility] [place] Mailstop [phone] [place] [address] [facility] Outpatient Field Service Consultant 01/24/23 02/20/23 documented as of this encounter
--- OUTSIDE RECORDS SUMMARY | 2024-09-29 14:56 | XMS_ITS | Encounter Summary ---
Author Organization [facility] Address [address] [place] [address] Phone Care Team Providers Care Soap Drier Tender Name Role Phone Yousif Benton MD Primary Care Provider Unknown, Notinfile Primary Care Provider Unavail able Yousif Benton MD Primary Care Provider [phone] Nl-Neuromuscle, Tawny - Unavailable Unavailab Micheal George MD Primary Care Provider Yoselin Garcia RN Unavailable [phone] Ferny Kearns MD PhD Unavailable [phone] Tera Seals DO Primary Care Provider Charu Galdamez COLOR TECHNICIAN Unavailable [phone] Encounter Details Date Type Department Care Team (Late st Contact Info) Description 07/31/2014 Orders Only WUCEDRIC DANGELO CAR CLINCONV Provider, MD Maame [address] [place] [address] Social History Tobacco Use Types Packs/Day Years Used Date Smoking Tobacco: Never Assessed Comments Unknown Sex and Gender Information Value Date Recorded Sex Assigned at Not on file Legal Sex Female 6:53 AM MOCK UP ASSEMBLER Gender Identity Not on file Sexual Orientation Not on file documented as of this encounter Plan of Treatment Not on file documented as of this encounter Procedures Procedure Name Priority Date/Time Associated Diagnosis Comments CARDIOLOGY REPORT 07/31/2014 documented in this encounter Results * CARDIOLOGY REPORT (07/31/2014) Anatomical Region Laterality Modality Other Narrative 07/31/2014 Ordered by an unspecified provider. us Historical Provider [facility] CARDIAC SERVICES PATRICK MOLINA Final Result documented in this encounter Visit Diagnoses Not on filedocumented in this encounter Additional Health Concerns Infection Onset Date Last Indicated Resolved Time COVID: Suspected 09/22/2021 09/22/2021 09/23/2021 3:06 AM MOCK UP ASSEMBLER COVID: Suspected 11/11/2022 11/11/2022 11/11/2022 1:37 PM CDT documented as of this encounter Care Teams Soap Drier Tender Relationship Specialty Start Date End Date Yousif Benton MD [address], [place] [address] PCP - General 12/27/16 06/07/17 Unknown, Notinfile PCP - General 06/08/17 06/17/17 Yousif Benton MD [address] [place] [address] PCP - General 06/18/17 03/12/20 Micheal Burton MD [address] [place] [address] PCP - General Family Medicine 03/13/20 05/04/22 Tera Seals DO [address] [place] [address] PCP - General Family Medicine 05/05/22 Nl-NeuromuscTawny stanley - [address] [place] [address] Referring Physician Neurology 04/18/18 Yoselin Garcia, RN [address] [facility] [address] [place] [address] [facility] Outpatient Furnishings Conservator 01/28/21 02/24/21 Ferny Kearns MD PhD [address] [facility] [address] [place] [address] Referring Physician Cardiology 04/21/21 Charu Galdamez LCSW [address] [facility] [place] Mailstop [phone] [place] [address] RASHIDA Outpatient Furnishings Conservator 01/24/23 02/20/23 documented as of this encounter
--- OUTSIDE RECORDS SUMMARY | 2024-09-29 14:56 | XMS_ITS | Referral Summary ---
Author Organization [facility] Address [address] [place] [address] Care Team Providers Care Director Of Group Counseling Program Name Role Phone Unavailable Primary Care Provider [...]
--- OUTSIDE RECORDS SUMMARY | 2024-09-29 14:56 | XMS_ITS | Encounter Summary ---
Author Organization [facility] Address [address] [place] [address] Phone Care Team Providers Care Enroute Controller Name Role Phone Yousif Benton MD Primary Care Provider [phone] Nl-Neuromuscle, [place] - Unavailable Unavailab Micheal George MD Primary Care Provider Yoselin Garcia RN Unavailable [phone] Ferny Kearns MD PhD Unavailable [phone] Tera Seals DO Primary Care Provider Charu Galdamez [facility] Unavailable [phone] Encounter Details Date Type Department Care Team (Late st Contact Info) Description 02/20/2020 Orders Only [facility] Scanning, Provider Social History Tobacco Use Types Packs/Day Years Used Date Smoking Tobacco: Never Smokeless Tobacco: Never Alcohol Use Standard Drinks/Week Comments No 0 (1 standard drink = 0.6 oz pur e alcohol) Comments No Sex and Gender Information Value Date Recorded Sex Assigned at Not on file Legal Sex Female 6:53 AM CLOTH FOLDER MACHINE Gender Identity Not on file Sexual Orientation Not on file documented as of this encounter Plan of Treatment Not on file documented as of this encounter Procedures Procedure Name Priority Date/Time Associated Diagnosis Comments SCAN - LABS 02/20/2020 documented in this encounter Results * SCAN - LABS (02/20/2020) Provider Scanning Final Result documented in this encounter Visit Diagnoses Not on filedocumented in this encounter Additional Health Concerns Infection Onset Date Last Indicated Resolved Time COVID: Suspected 09/22/2021 09/22/2021 09/23/2021 3:06 AM CLOTH FOLDER MACHINE COVID: Suspected 11/11/2022 11/11/2022 11/11/2022 1:37 PM CDT documented as of this encounter Care Teams Enroute Controller Relationship Specialty Start Date End Date Yousif Benton MD [address] [facility] [place] [address] PCP - General 06/18/17 03/12/20 Micheal Burton MD [address] [place] [address] PCP - General Family Medicine 03/13/20 05/04/22 Tera Seals DO [address] [place] [address] PCP - General Family Medicine 05/05/22 Nl-Neuromuscle, [facility] [address] [place] [address] Referring Physician Neurology 04/18/18 Yoselin Garcia, RN [address] [address] [facility] Outpatient Assistant Sales Director 01/28/21 02/24/21 Ferny Kearns MD PhD [address] [address] Referring Physician Cardiology 04/21/21 Charu Galdamez, EXECUTIVE TEAM LEADER [address] [facility] ([facility] Mailstop [phone] [place] [address] [facility] Outpatient Assistant Sales Director 01/24/23 02/20/23 documented as of this encounter
--- OUTSIDE RECORDS SUMMARY | 2024-09-29 14:56 | XMS_ITS | Encounter Summary ---
Author Organization [facility] Address [address] [place] [address] Phone Care Team Providers Care Lcac Radar Operator/Navigator Name Role Phone Yousif Benton MD Primary Care Provider [phone] Unknown, Notinfile Primary Care Provider Unavail able Youisf Benton MD Primary Care Provider [phone] Nl-Neuromuscle, Tawny - Unavailable Unavailab Micheal George MD Primary Care Provider Ysoelin Garcia RN Unavailable [phone] Ferny Kearns MD PhD Unavailable [phone] Tera Seals DO Primary Care Provider Charu Galdamez FOURTH MATE Unavailable [phone] Encounter Details Date Type Department Care Team (Late st Contact Info) Description 03/26/2014 Orders Only WUCEDR[facility] DANGELO CAR CLINCONV Provider, MD Maame [address] [place] [address] Social History Tobacco Use Types Packs/Day Years Used Date Smoking Tobacco: Never Assessed Comments Unknown Sex and Gender Information Value Date Recorded Sex Assigned at Not on file Legal Sex Female 6:53 AM COST CONTROL SPECIALIST Gender Identity Not on file Sexual Orientation Not on file documented as of this encounter Plan of Treatment Not on file documented as of this encounter Procedures Procedure Name Priority Date/Time Associated Diagnosis Comments CARDIOLOGY REPORT 03/26/2014 documented in this encounter Results * CARDIOLOGY REPORT (03/26/2014) Anatomical Region Laterality Modality Other Narrative 03/26/2014 Ordered by an unspecified provider. us Historical Provider [facility] SERVICES PATRICK MOLINA Final Result documented in this encounter Visit Diagnoses Not on filedocumented in this encounter Additional Health Concerns Infection Onset Date Last Indicated Resolved Time COVID: Suspected 09/22/2021 09/22/2021 09/23/2021 3:06 AM COST CONTROL SPECIALIST COVID: Suspected 11/11/2022 11/11/2022 11/11/2022 1:37 PM CDT documented as of this encounter Care Teams Lcac Radar Operator/Navigator Relationship Specialty Start Date End Date Yousif Benton MD [address] [address] PCP - General 12/27/16 06/07/17 Unknown, Notinfile PCP - General 06/08/17 06/17/17 Yousif Benton MD [address] [place] [address] PCP - General 06/18/17 03/12/20 Micheal Burton MD [address] [place] [address] PCP - General Family Medicine 03/13/20 05/04/22 Tera Seals DO [address] [place] [address] PCP - General Family Medicine 05/05/22 Nl-NeuromuscTawny stanley - [address] [place] [address] Referring Physician Neurology 04/18/18 Yoselin Garcia, RN [address] [facility] [address] [place] [address] RASHIDA Outpatient Knot Picker Cloth 01/28/21 02/24/21 Ferny Kearns MD PhD [address] [facility] [address] [place] [address] Referring Physician Cardiology 04/21/21 Charu Galdamez LCSW [address] [facility] [place] Mailstop [phone] [place] [address] RASHIDA Outpatient Knot Picker Cloth 01/24/23 02/20/23 documented as of this encounter
--- OUTSIDE RECORDS SUMMARY | 2024-09-29 14:56 | XMS_ITS | Encounter Summary ---
Author Organization [facility] School of [facility] Address [address] [place] [address] Phone Care Team Providers Care Rewrite Editor Name Role Phone Yousif Benton MD Primary Care Provider [phone] Unknown, Notinfile Primary Care Provider Unavail able Yousif Benton MD Primary Care Provider [phone] Nl-Neuromuscle, [place] - Unavailable Unavailab Micheal George MD Primary Care Provider Yoselin Garcia RN Unavailable [phone] Ferny Kearns MD PhD Unavailable [phone] Tera Seals DO Primary Care Provider Charu Galdamez SURFACE PLATE INSPECTOR Unavailable [phone] Encounter Details Date Type Department Care Team (Late st Contact Info) Description 02/29/2016 Orders Only WUCEDRIC DANGELO CAR CLINCONV Provider, MD Maame [address] [place] [address] Social History Tobacco Use Types Packs/Day Years Used Date Smoking Tobacco: Never Comments Unknown Sex and Gender Information Value Date Recorded Sex Assigned at Not on file Legal Sex Female 6:53 AM POLISHER BRASS Gender Identity Not on file Sexual Orientation Not on file documented as of this encounter Plan of Treatment Not on file documented as of this encounter Procedures Procedure Name Priority Date/Time Associated Diagnosis Comments CARDIOLOGY REPORT 02/29/2016 CARDIOLOGY REPORT 02/29/2016 documented in this encounter Results * CARDIOLOGY REPORT (02/29/2016) Anatomical Region Laterality Modality Other Narrative 02/29/2016 Ordered by an unspecified provider. us Historical Provider CV CARDIAC SERVICES PROCE DURES Final Result * CARDIOLOGY REPORT (02/29/2016) Anatomical Region Laterality Modality Other Narrative 02/29/2016 Ordered by an unspecified provider. Historical Provider CV CARDIAC SERVICES PROCE DURES Final Result documented in this encounter Visit Diagnoses Not on filedocumented in this encounter Additional Health Concerns Infection Onset Date Last Indicated Resolved Time COVID: Suspected 09/22/2021 09/22/2021 09/23/2021 3:06 AM POLISHER BRASS COVID: Suspected 11/11/2022 11/11/2022 11/11/2022 1:37 PM CDT documented as of this encounter Care Teams Rewrite Editor Relationship Specialty Start Date End Date Yousif Benton MD [address] [address] PCP - General 12/27/16 06/07/17 Unknown, Notinfile PCP - General 06/08/17 06/17/17 Yousif Benton MD [address] [address] PCP - General 06/18/17 03/12/20 Micheal Burton MD [address] [place] [address] PCP - General Family Medicine 03/13/20 05/04/22 Tera Seals DO [address] [place] [address] PCP - General Family Medicine 05/05/22 Nl-Neuromuscle, [facility] - [address] [place] [address] Referring Physician Neurology 04/18/18 Yoselin Garcia RN [address] [address] Secure64 Outpatient Aging Room Hand 01/28/21 02/24/21 Ferny Kearns MD PhD [address] [address] Referring Physician Cardiology 04/21/21 Charu Galdamez, [facility] 45[address] [facility] ([facility] Mailstop [phone] [place] [address] Secure64 Outpatient Aging Room Hand 01/24/23 02/20/23 documented as of this encounter
--- OUTSIDE RECORDS SUMMARY | 2024-09-29 14:56 | XMS_ITS | Encounter Summary ---
Author Organization [facility] School of [facility] Address [address] [place] [address] Phone Care Team Providers Care Residential Real Estate Assistant Name Role Phone Yousif Benton MD Primary Care Provider [phone] Nl-Neuromuscle, [place] - Unavailable Unavailab Micheal George MD Primary Care Provider Yoselin Garcia RN Unavailable [phone] Ferny Kearns MD PhD Unavailable [phone] Tera Seals DO Primary Care Provider Charu Galdamez [facility] Unavailable [phone] Encounter Details Date Type Department Care Team (Late st Contact Info) Description 11/26/2019 Orders Only [facility] Scanning, Provider Social History Tobacco Use Types Packs/Day Years Used Date Smoking Tobacco: Never Smokeless Tobacco: Never Alcohol Use Standard Drinks/Week Comments No 0 (1 standard drink = 0.6 oz pur e alcohol) Comments No Sex and Gender Information Value Date Recorded Sex Assigned at Not on file Legal Sex Female 6:53 AM SHOE CLERK Gender Identity Not on file Sexual Orientation Not on file documented as of this encounter Plan of Treatment Not on file documented as of this encounter Procedures Procedure Name Priority Date/Time Associated Diagnosis Comments SCAN - LABS 11/26/2019 documented in this encounter Results * SCAN - LABS (11/26/2019) Provider Scanning Final Result documented in this encounter Visit Diagnoses Not on filedocumented in this encounter Additional Health Concerns Infection Onset Date Last Indicated Resolved Time COVID: Suspected 09/22/2021 09/22/2021 09/23/2021 3:06 AM SHOE CLERK COVID: Suspected 11/11/2022 11/11/2022 11/11/2022 1:37 PM CDT documented as of this encounter Care Teams Residential Real Estate Assistant Relationship Specialty Start Date End Date Yousif Benton MD [address] [facility] [place] [place] [address] PCP - General 06/18/17 03/12/20 Micheal Burton MD [address] [place] [address] PCP - General Family Medicine 03/13/20 05/04/22 Tera Seals DO [address] [place] [address] PCP - General Family Medicine 05/05/22 Nl-Neuromuscle, [facility] [address] [place] [address] Referring Physician Neurology 04/18/18 Yoselin Garcia, RN [address] [address] SHOP Outpatient Warehouse Operations Manager 01/28/21 02/24/21 Ferny Kearns MD PhD [address] [address] Referring Physician Cardiology 04/21/21 Charu Galdamez, MICROMATIC HONE OPERATOR 45[address] [facility] [place] Mailstop [phone] [place] [address] SHOP Outpatient Warehouse Operations Manager 01/24/23 02/20/23 documented as of this encounter
--- OUTSIDE RECORDS SUMMARY | 2024-09-29 14:56 | XMS_ITS | Encounter Summary ---
Author Organization [facility] of [facility] Address [address] [place] [address] Phone Care Team Providers Care Manager Country Name Role Phone oYusif Benton MD Primary Care Provider [phone] Nl-Neuromuscle, [place] - Unavailable Unavailab Micheal George MD Primary Care Provider Yoselin Garcia RN Unavailable [phone] Ferny Kearns MD PhD Unavailable [phone] Tera Seals DO Primary Care Provider Charu Galdamez [facility] Unavailable [phone] Encounter Details Date Type Department Care Team (Late st Contact Info) Description 04/23/2019 Telephone [facility] ([facility]) - [facility] Urology [address] [facility] Advanced Medicine 11th [place] [address] [place] [address] Nolvia Gacria Social History Tobacco Use Types Packs/Day Years Used Date Smoking Tobacco: Never Smokeless Tobacco: Never Alcohol Use Standard Drinks/Week Comments No 0 (1 standard drink = 0.6 oz pur e alcohol) Comments No Sex and Gender Information Value Date Recorded Sex Assigned at Not on file Legal Sex Female 6:53 AM AVIATION OPERATIONS SPECIALIST Gender Identity Not on file Sexual Orientation Not on file documented as of this encounter Plan of Treatment Not on file documented as of this encounter Visit Diagnoses Not on filedocumented in this encounter Additional Health Concerns Infection Onset Date Last Indicated Resolved Time COVID: Suspected 09/22/2021 09/22/2021 09/23/2021 3:06 AM AVIATION OPERATIONS SPECIALIST COVID: Suspected 11/11/2022 11/11/2022 11/11/2022 1:37 PM CDT documented as of this encounter Care Teams Manager Country Relationship Specialty [place] [address] [place] [address] [place] [address] PCP - General 06/18/17 03/12/20 Micheal Burton MD [address] [place] [address] PCP - General Family Medicine 03/13/20 05/04/22 Tera Seals DO [address] [place] [address] PCP - General Family Medicine 05/05/22 Nl-Neuromuscle, [facility] [address] [place] [address] Referring Physician Neurology 04/18/18 Yoselin Garcia, DELILAH [address] [place] [address] SHOP Outpatient Tax Manager Cpa 01/28/21 02/24/21 Ferny Kearns MD PhD [address] [facility] [address] [place] [address] Referring Physician Cardiology 04/21/21 Charu Galdamez, DENTAL PRACTITIONER 45[address] [facility] ([facility] Mailstop [phone] [place] [address] SHOP Outpatient Tax Manager Cpa 01/24/23 02/20/23 documented as of this encounter
--- OUTSIDE RECORDS SUMMARY | 2024-09-29 14:56 | XMS_ITS | Encounter Summary ---
Author Organization [facility] Address [address] [place] [address] Phone Care Team Providers Care Kiln Pusher Name Role Phone Nl-[place], [place] - Unavailable Unavailab Ferny Harris MD PhD Unavailable Tera Seals DO Primary Care Provider Encounter Details Date Type Department Care Team (Late st Contact Info) Description 04/12/2023 Telephone [facility] Cardiology [facility] Advanced Medicine 8th [place] [address] [place] [address] Ferny Kearns MD PhD [address] [facility] [address] [place] [address] Social History Tobacco Use Types Packs/Day Years [...] often do you attend chur ch or confucianist services? Never 01/24/2023 Do you belong to any clubs o r organizations such as oriental orthodox groups, unions, fraternal or athletic groups, or [...] place to sleep or slept in a prison (including now)? No 01/24/2023 Personal Safety Answer Date Recorded Have you ever been in or are you currently in a harmful physical or emotional relationship or is someone making you feel afraid or unsafe? Denies 01/16/2023 Comments No Sex and Gender Information Value Date Recorded Sex Assigned at Not on file Legal Sex Female 6:53 AM HUMAN RESOURCE MANAGER Gender Identity Not on file Sexual Orientation Not on file documented as of this encounter Plan of Treatment Not on file documented as of this encounter Visit Diagnoses Not on filedocumented in this encounter Care Teams Kiln Pusher Relationship Specialty Start Date End Date Tera Seals DO [address] [place] [address] PCP - General Family Medicine 05/05/22 Nl-Neuromuscle, [facility] - [address] [place] [address] Referring Physician Neurology 04/18/18 Ferny Kearns MD PhD [address] [place] [address] Referring Physician Cardiology 04/21/21 documented as of this encounter
--- OUTSIDE RECORDS SUMMARY | 2024-09-29 14:56 | XMS_ITS | Encounter Summary ---
Author Organization [facility] Address [address] [place] [address] Phone Care Team Providers Care Sports Management Internship Name Role Phone Yousif Benton MD Primary Care Provider [phone] Unknown, Notinfile Primary Care Provider Unavail able Yousif Benton MD Primary Care Provider [phone] Nl-Neuromuscle, [place] - Unavailable Unavailab Micheal George MD Primary Care Provider Yoselin Garcia RN Unavailable Ferny Kearns MD PhD Unavailable [phone] Tera Seals DO Primary Care Provider Charu Galdamez HEALTH CLAIMS EXAMINER Unavailable [phone] Encounter Details Date Type Department Care Team (Late st Contact Info) Description 10/25/2015 Orders Only WUCEDRIC DANGELO CAR CLINCONV Provider, MD Maame [address] [place] [address] Social History Tobacco Use Types Packs/Day Years Used Date Smoking Tobacco: Never Comments Unknown Sex and Gender Information Value Date Recorded Sex Assigned at Not on file Legal Sex Female 6:53 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 us Historical Provider CV CARDIAC SERVICES PATRICK MOLINA Final Result documented in this encounter Visit Diagnoses Not on filedocumented in this encounter Additional Health Concerns Infection Onset Date Last Indicated Resolved Time COVID: Suspected 09/22/2021 09/22/2021 09/23/2021 3:06 AM DELICATE FABRICS PRESSER COVID: Suspected 11/11/2022 11/11/2022 11/11/2022 1:37 PM CDT documented as of this encounter Care Teams Sports Management Internship Relationship Specialty Start Date End Date Yousif Benton MD [address] [address] PCP - General 12/27/16 06/07/17 Unknown, Notinfile PCP - General 06/08/17 06/17/17 Yousif Benton MD [address] [address] PCP - General 06/18/17 03/12/20 Micheal Burton MD [address] [place] [address] PCP - General Family Medicine 03/13/20 05/04/22 Tera Seals DO [address] [place] [address] PCP - General Family Medicine 05/05/22 Nl-NeuromuscTawny stanley - [address] [place] [address] Referring Physician Neurology 04/18/18 Yoselin Garcia, RN 45[address] [facility] [address] [place] [address] RASHIDA Outpatient Radiosonde Specialist 01/28/21 02/24/21 Ferny Kearns MD PhD [address] [facility] [address] [place] [address] Referring Physician Cardiology 04/21/21 Charu Galdamez LCSW 4590 [facility] ([facility] Mailstop [phone] [place] [address] SHOP Outpatient Radiosonde Specialist 01/24/23 02/20/23 documented as of this encounter
--- OUTSIDE RECORDS SUMMARY | 2024-09-29 14:56 | XMS_ITS | Encounter Summary ---
Author Organization [facility] School of [facility] Address [address] [place] [address] Phone Care Team Providers Care Recycle Coordinator Name Role Phone Yousif Benton MD Primary Care Provider [phone] Unknown, Notinfile Primary Care Provider Unavail able Yousif Benton MD Primary Care Provider [phone] Nl-Neuromuscle, [place] - Unavailable Unavailab Micheal George MD Primary Care Provider Yoselin Garcia RN Unavailable [phone] Ferny Kearns MD PhD Unavailable [phone] Tera Seals DO Primary Care Provider Charu Galdamez [employer] Unavailable [phone] Encounter Details Date Type Department Care Team (Late st Contact Info) Description 08/10/2014 Orders Only WUCEDRIC DANGELO CAR CLINCONV Provider, MD Maame [address] [place] [address] Social History Tobacco Use Types Packs/Day Years Used Date Smoking Tobacco: Never Assessed Comments Unknown Sex and Gender Information Value Date Recorded Sex Assigned at Not on file Legal 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 us Historical Provider CV CARDIAC SERVICES PATRICK MOLINA Final Result documented in this encounter Visit Diagnoses Not on filedocumented in this encounter Additional Health Concerns Infection Onset Date Last Indicated Resolved Time COVID: Suspected 09/22/2021 09/22/2021 09/23/2021 3:06 AM SPACE CONTROL AGENT COVID: Suspected 11/11/2022 11/11/2022 11/11/2022 1:37 PM CDT documented as of this encounter Care Teams Recycle Coordinator Relationship Specialty Start Date End Date Yousif Benton MD [address] [address] PCP - General 12/27/16 06/07/17 Unknown, Notinfile PCP - General 06/08/17 06/17/17 Yousif Benton MD [address] [place] [address] PCP - General 06/18/17 03/12/20 Micheal Burton MD [address] [place] [address] PCP - General Family Medicine 03/13/20 05/04/22 Tera Seals DO [address] [place] [address] PCP - General Family Medicine 05/05/22 Nl-NeuromuscTawny stanley - [address] [place] [address] Referring Physician Neurology 04/18/18 Yoselin Garcia, RN [address] [facility] [address] [place] [address] RASHIDA Outpatient Lining Folder 01/28/21 02/24/21 Ferny Kearns MD PhD [address] [facility] [address] [place] [address] Referring Physician Cardiology 04/21/21 Charu Galdamez LCSW 4590 [facility] ([facility] Mailstop [phone] [place] [address] RASHIDA Outpatient Lining Folder 01/24/23 02/20/23 documented as of this encounter
--- OUTSIDE RECORDS SUMMARY | 2024-09-29 14:56 | XMS_ITS | Clinical Summary ---
Author Organization [facility] Address [address] [facility] [place] [address] Care Team Providers Care Automobile And Property Underwriter Name Role Phone Unavailable Primary Care Provider Unavailabl e Source Comments [facility],non-owned Affiliates and Associated Physician Practices is amultiple site organization consisting of ambulatory clinics and hospital sitesin [place], [place], [place] and [place]. This disclosure is being madepursuant to the Care Everywhere program and may not contain all information available regarding this patient. Last updated 18.[facility] [employer] Allergies Active Allergy Reactions Criticality Noted Date [...] times daily 04/21/2021 Activ e Glucosamine-Chondroit in 5459-5476 MG/30ML Take 1,500 mg by mouth 2 [...] 02/07/2022 Polyarthralgia 02/07/2022 GERD (gastroesophageal reflux disease) 2 Family History Medical History Relation Name Comments Other Father Stroke Other Mother COPD Other Sister Asthma,Heart is sues,Thyroid issues,RLS, Relation Name Status Comments Father Mother Sister Alive Social History Tobacco Use Types Packs/Day Years [...] 02/07/2022 10:43 AM CDT Plan of Treatment Health Maintenance Due Date Last Done Comments BONE DENSITY TESTING 1945 HEPATITIS C SCREENING 10/04/1964 DTAP/TDAP/TD VACCINES (1 - Tdap) 1965 PNEUMOCOCCAL VACCINE 50+ (1 of 1 - PCV) 1996 ZOSTER VACCINE (1 of 2) 1996 Respiratory Syncytial Virus (RSV) Vaccine Pt: or over 60 yrs (1 - 1-dose 75+ series) 2021 COVID-19 VACCINE (1 - 2023- season) 2024 INFLUENZA VACCINE (#1) 2024 0, 04/13/2020, 05/15/2019, Additional history exists DEPRESSION SCREENING 08/13/2024 MEDICARE AWV CALENDAR YEAR 2024 HEPATITIS B VACCINE Aged Out No longe r eligible based on patient's age to complete this topic HIB VACCINE Aged Out No longer eligi ble based on patient's age to complete this topic HPV VACCINE Aged Out No longer eligi ble based on patient's age to complete this topic MENINGOCOCCAL (Group B) VACCINE Aged Out No longer eligible based on patient's age to complete this topic MENINGOCOCCAL VACCINE Aged Out No natalie neena eligible based on patient's age to complete this topic CateDiane Personal/Famil y Self 1945 [id number] [place] [address] CATEDIANE Personal/Famil y Spouse [address] [place] [address] [facility] Personal/Famil [place] Spouse [address] [place] [address]
== END 2024-09-29 12:31 | disposition home or self-care (01) ==
LOC: CHSLAB 12:31
PROVIDERS: PCP Nurse Practitioner Family; Visit Provider Nurse Practitioner Family
DX: R39.198 Other difficulties with micturition (principal); R53.83 Other fatigue
CPT/HCPCS: 81003

== ENCOUNTER 2024-10-04 08:25 | Outpatient (CLI) | payer MEDICARE, SELFPAY ==
--- NOTE | ~2024-10-04 | MR_ITS ---
EXAMINATION: MR brain/brain stem wo con DATE: 10/04/2024 09:10 INDICATION: Dizziness and giddiness TECHNIQUE: Magnetic resonance imaging (MRI) of the brain and brainstem was performed without intraven ous contrast. Sequences included sagittal and axial T1-weighted SE, axial diffusion-weighted FS SE, a xial T2*-weighted GRE, axial T2-weighted FLAIR, and axial T2-weighted FSE. Apparent diffusion coeffic ient (ADC) maps were created. 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 A couple small old infarcts in the right cerebellar hemisphere. There are no areas of restricted diffusion to suggest acute infarction. No intracranial hemorrhage o r abnormal intracranial mass lesion. There are scattered areas of nonspecific increased T2-weighted s ignal intensity in the cerebral white matter with periventricular predominance. There are no intrapar enchymal signal abnormalities seen on the other pulse sequences. The ventricles are symmetric and nor mal in size. There are no abnormal extra-axial fluid collections. Flow voids are seen in the cerebral arteries on the T2-weighted sequences consistent with their expected patency. There is mild mucosal thickening throughout the paranasal sinuses. Visualized orbits and soft tissues are unremarkable. Chr onic left mastoid effusion. IMPRESSION: 1. 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 2. Mild scattered nonspecific cerebral white matter T2 hyperintensity consistent with chronic small v essel ischemic disease. 3. Chronic left mastoid effusion. Reviewed, dictated and finalized at location A. 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 2. Mild scattered nonspecific cerebral white matter T2 hyperintensity consisten t with chronic small vessel ischemic disease. 3. Chronic left mastoid effusion.
--- OUTSIDE RECORDS SUMMARY | 2024-10-04 08:30 | XMS_ITS | Data Portability ---
Author Organization OR - [facility] [employer], Main Office Address [address] [place] [address] Care Team Providers Care Gas Pumper Name Role Phone ERIC HANSEN Primary Care Provider ONEYDA YOUNG OTHER [phone] Assessment Encounter Date Assessment Date Assessment LastModified by Organization Details LastModified Time 10/30/2022 10/30/2022 Reviewed hospital records brought with patient today Spent up to 50 minutes preparing to see the patient (eg, review of tests), obtaining and/or reviewing separately obtained history, performing a medically appropriate examination and evaluation, counseling and educating the patient, ordering medications, tests, along with documenting clinical information in the electronic health record, independently interpreting results and communicating results to the patient. [email or web address] Not available 10/30/2022 21:46:37 Plan of Treatment Reminders Order Date Submit Date Provider Last Modified By Organization Details Last Modified Time Details Appointments None recorded. Lab None recorded. Referral None recorded. Procedures None recorded. Surgeries None recorded. Imaging CT, chest, w/o contrast - December schedule after 01/2023 approved [id number] 02/01/2023-1 10/01/20222022 023 [facility] (Imaging), [address] [place] [address], [address], 3 18:43:10 Medication Orders clonazepam 0.5 mg tablet 2022 023 [email or web address] [facility], [address], [place], [id number], 16:52:36 Patient TargetsNo targets recorded. Patient InstructionsNo instructions recorded. Reason for Referral None Reported. Results Created Date Observation Date Name Description Value Unit Range Abnormal Flag Note LastModifiedBy Organization Detail LastModifiedTime 06/23/20 22 06/16/2022 compl ete PFT w/ post cox north hodil ator robert metry * No observ ation record ed. [id number] [facility] [address], [place], [address], 10/11/2022 01:25:28 02/07/20 23 02/06/2023 CT, chest , w/o contr ast No observ ation record ed. [email or web address] [facility] (Imaging) [address] [place], [address], 02/15/2023 14:10:49 Result Notes None recorded. Problems Name Problem SNOMED Code Status Onset Date Resolution Date Notes Provider Name and Address Organization Details Recorded Time Acute bronchitis 28247950 Active 2018 Not Available [facility] 3 01:17:20 Bronchiectasi s 82387163 Active 2018 Not Available [facility] 3 01:17:20 Chronic obstructive pulmonary disease 22680373 Active 2021 Not Available [facility] 3 01:17:20 Mixed sleep apnea 160269001 Active 2020 Not Available [facility] 3 01:17:20 Anterior epistaxis 292549961 Active 2021 Not Available [facility] 3 01:17:20 Anemia 238727613 Active 2021 Not Available [facility] 3 01:17:20 Persistent cough 345989711 Active 2018 Not Available [facility] 3 01:17:20 Mild chronic obstructive pulmonary disease 167653883 Active 2021 Not Available [facility] 3 01:17:20 Periodic limb movement disorder 742820060 Active Not Available [facility] 3 01:17:20 Multiple nodules of lung 387398545 Active 2021 Not Available [facility] 3 01:17:20 Acute exacerbation of bronchiectasi s 399897350 Active 2021 Not Available [facility] 3 01:17:20 Cough 90806634 Active 2021 Not Available [facility] 3 01:17:20 Allergic rhinitis 05601659 Active Not Available [facility] 3 01:17:21 Obstructive sleep apnea syndrome 78283778 Active 2021 Not Available [facility] 3 01:17:21 Fatigue 86117552 Active Not Available [facility] 3 01:17:21 Notes:plastic in chest Problem Notes None recorded. Procedures Surgical History None recorded. Imaging Results Imaging Date Name Status LastModified by Organization Details LastModified Time 06/16/2022 complete PFT w/ post bronchodilator spirometry* completed [id number] [facility] [address] [facility] [address] [place] [address], [address], 10/11/2022 01:25:28 02/06/2023 CT, chest, w/o contrast completed [email or web address] (Imaging) [address] [place], [address], 02/15/2023 14:10:49 Procedure Notes None recorded. Medical Equipment None Reported. Allergies Allergen ID Allergen Name Allergen Category Reaction Reaction Severity Criticality Documentation Date Start Date Code Code System Note Provider Name and Address Organization Details Recorded Time 2278 wheat preparati on food,medi cation Not available Not available Not available 10/11/2022 50413 52 RxNorm Not Available [facility] 3 01:24:55 2279 wheat gluten extract food Not available Not available Not available 10/11/2022 50143 81 RxNorm Not Available [facility] 3 01:24:55 Medications Name Sig Start Date Stop Date Status Note LastModified by Organization Details LastModified Time losartan 50 mg tablet active Not Available Not Available No t Available furosemide 40 mg tablet active Not Available Not Available Not Available atorvastati n 40 mg tablet active Not Available Not Available Not Available levothyroxi ne 137 mcg tablet active Not Available Not Available Not Available pilocarpine 5 mg tablet active Not Available Not Available Not Available carvedilol 6.25 mg tablet active Not Available Not Available Not Available prednisone 10 mg tablet Take 3 tablets every day by oral route as directed for 5 days. active Not Available Not Available No t Available carvedilol 12.5 mg tablet active Not Available Not Available Not Available ropinirole 1 mg tablet active Not Available Not Available Not Available loperamide 2 mg capsule active Not Available Not Available Not Available oxybutynin chloride ER 10 mg tablet,exte nded release 24 hr Take 1 tablet every day by oral route. active Not Available Not Available No t Available azithromyci n 250 mg tablet 07/03 completed Not Available Not Available Not Available benzonatate 200 mg capsule Take 1 capsule 3 times a day by oral route as directed for 10 days. 02/01 completed Not Available Not Available Not Available metoprolol succinate ER 50 mg tablet,exte nded release 24 hr 04/21 completed Not Available Not Available Not Available valacyclovi r 1 gram tablet active Not Available Not Available Not Available Claritin 10 mg tablet Take 1 tablet every day by oral route as directed for 30 days. 05/13 completed Not Available Not Available Not Available prednisone 20 mg tablet Take 2 tablets every day by oral route in the morning for 5 days. active Not Available Not Available No t Available clonazepam 0.5 mg tablet Take 1 tablet every day by oral route in the evening for 30 days. 2022 active Not Available Not Available Not Avai lable sertraline 100 mg tablet active Not Available Not Available Not Available prednisone 5 mg tablet 05/13 completed Not Available Not Available Not Available clonazepam 1 mg tablet Take 1 tablet every day by oral route at bedtime for 30 days. 07/20 completed Not Available Not Available Not Available metolazone 5 mg tablet 09/19 completed Not Available Not Available Not Available atenolol 25 mg tablet 04/21 completed Not Available Not Available Not Available Grapevine 3 120 mg-180 mg-1000 mg capsule Take by oral route. 2019 active Not Available Not Available Not Avai lable metronidazo le 500 mg tablet active Not Available Not Available Not Available hydroxyzine HCl 50 mg tablet Take 1 tablet 4 times a day by oral route. 09/19 completed Not Available Not Available Not Available clopidogrel 75 mg tablet active Not Available Not Available Not Available ciprofloxac in 250 mg tablet 02/07 completed Not Available Not Available Not Available allopurinol 100 mg tablet 12/11 completed Not Available Not Available Not Available sulfamethox azole 800 mg-trimetho prim 160 mg tablet 02/07 completed Not Available Not Available Not Available omeprazole 40 mg capsule,del ayed release active Not Available Not Available Not Available tramadol 50 mg tablet 05/13 completed Not Available Not Available Not Available spironolact one 25 mg tablet active Not Available Not Available Not Available vancomycin 125 mg capsule 02/07 completed Not Available Not Available Not Available baclofen 20 mg tablet 04/21 completed Not Available Not Available Not Available levothyroxi ne 75 mcg tablet 09/06 completed Not Available Not Available Not Available levothyroxi ne 100 mcg tablet 09/19 completed Not Available Not Available Not Available famotidine 20 mg tablet Take 1 tablet every day by oral route in the evening for 30 days. active Not Available Not Available No t Available vitamin A 3,000 mcg (10,000 unit) capsule Take 1 capsule every day by oral route. 2019 active Not Available Not Available Not Avai lable lorazepam 0.5 mg tablet 04/21 completed Not Available Not Available Not Available methotrexat e sodium 2.5 mg tablet active Not Available Not Available Not Available ropinirole 0.25 mg tablet active Not Available Not Available Not Available prednisone 1 mg tablet 05/13 completed Not Available Not Available Not Available benzonatate 100 mg capsule 03/06 completed Not Available Not Available Not Available levothyroxi ne 50 mcg tablet 09/06 completed Not Available Not Available Not Available ropinirole 2 mg tablet active Not Available Not Available Not Available cephalexin 500 mg capsule 07/03 completed Not Available Not Available Not Available pantoprazol e 40 mg tablet,aleksandra yed release active Not Available Not Available Not Available ropinirole 0.5 mg tablet active Not Available Not Available Not Available ranitidine 150 mg tablet 10/27 completed Not Available Not Available Not Available cevimeline 30 mg capsule active Not Available Not Available Not Available clonazepam 2 mg tablet TAKE ONE TABLET BY MOUTH NIGHTLY AT BEDTIME 12/21 completed Not Available Not Available Not Available losartan 25 mg tablet active Not Available Not Available No t Available betamethaso ne dipropionat e 0.05 % topical cream active Not Available Not Available Not Available oxybutynin chloride ER 5 mg tablet,exte nded release 24 hr 05/13 completed Not Available Not Available Not Available omeprazole 20 mg capsule,del ayed release Take 1 capsule every day by oral route. 02/07 completed Not Available Not Available Not Available folic acid 1 mg tablet 02/01 completed Not Available Not Available Not Available montelukast 10 mg tablet Take 1 tablet every day by oral route. 12/11 completed Not Available Not Available Not Available codeine 10 mg-guaifene sin 100 mg/5 mL oral liquid active Not Available Not Available Not Available mupirocin 2 % topical ointment active Not Available Not Available Not Available midodrine 2.5 mg tablet active Not Available Not Available Not Available gabapentin 100 mg capsule active Not Available Not Available Not Available metoprolol succinate ER 25 mg tablet,exte nded release 24 hr active Not Available Not Available Not Available ergocalcife rol (vitamin D2) 1,250 mcg (50,000 unit) capsule active Not Available Not Available Not Available levofloxaci n 500 mg tablet active Not Available Not Available Not Available levofloxaci n 750 mg tablet Take 1 tablet every day by oral route as directed for 7 days. active Not Available Not Available No t Available hydrocodone 10 mg-chlorphe niramine 8 mg/5 mL oral susp extend.rel 12hr active Not Available Not Available Not Available albuterol sulfate HFA 90 mcg/actuati on aerosol inhaler Inhale 2 puffs every 4 hours by inhalatio n route as needed for 30 days. active Not Available Not Available No t Available cefdinir 300 mg capsule Take 1 capsule every 12 hours by oral route for 20 days. active Not Available Not Available No t Available fluticasone propionate 50 mcg/actuati on nasal spray,suspe nsion Inhale 2 sprays each nostril EVERY DAY by intranasa l route. active Not Available Not Available No t Available sertraline 50 mg tablet 05/13 completed Not Available Not Available Not Available Ambien 5 mg tablet Take 1 tablet every day by oral route. 03/06 completed Not Available Not Available Not Available magnesium gluconate 200 mg tablet Take by oral route. 2019 active Not Available Not Available Not Avai lable levothyroxi ne 112 mcg tablet active Not Available Not Available Not Available amoxicillin 875 mg-potassiu m clavulanate 125 mg tablet Take 1 tablet every 12 hours by oral route as directed for 7 days. 09/19 completed Not Available Not Available Not Available enoxaparin 80 mg/0.8 mL subcutaneou s syringe 10/27 completed Not Available Not Available Not Available Pneumovax-2 3 25 mcg/0.5 mL injection syringe 12/11 completed Not Available Not Available Not Available escitalopra m 10 mg tablet 04/21 completed Not Available Not Available Not Available Premarin 0.625 mg/gram vaginal cream 02/07 completed Not Available Not Available Not Available metoprolol tartrate 25 mg tablet active Not Available Not Available No t Available nitrofurant oin monohydrate /macrocryst als 100 mg capsule 09/19 completed Not Available Not Available Not Available ramelteon 8 mg tablet active Not Available Not Available No t Available Proventil 02/07 completed Not Available Not Available Not Available Glucosamine 2019 active Not Available Not Available Not Avai lable zinc sulfate 50 mg zinc (220 mg) capsule Take 220 mg every day by oral route. 2019 active Not Available Not Available Not Avai lable Symbicort 160 mcg-4.5 mcg/actuati on HFA aerosol inhaler 04/22 completed Not Available Not Available Not Available Symbicort 1 puff twice daily 02/07 completed Not Available Not Available Not Available Mucinex 1,200 mg tablet, extended release Take 1 tablet twice a day by oral route as directed for 14 days. 04/21 completed Not Available Not Available Not Available GaviLyte-G 236 gram-22.74 gram-6.74 gram-5.86 gram oral solution 12/11 completed Not Available Not Available Not Available Prevnar 13 (PF) 0.5 mL intramuscul ar syringe 12/11 completed Not Available Not Available Not Available Suprep Bowel Prep Kit 17.5 gram-3.13 gram-1.6 gram oral solution 09/19 completed Not Available Not Available Not Available octreotide acetate 50 mcg/mL (1 mL) injection syringe active Not Available Not Available Not Available Xarelto 10 mg tablet active Not Available Not Available No t Available Xarelto 15 mg tablet active Not Available Not Available No t Available Xarelto 20 mg tablet Take 1 tablet every day by oral route. 02/07 completed Not Available Not Available Not Available Myrbetriq 50 mg tablet,exte nded release 08/04 completed Not Available Not Available Not Available Eliquis 5 mg tablet active Not Available Not Available No t Available Farxiga 10 mg tablet active Not Available Not Available No t Available Jardiance 10 mg tablet active Not Available Not Available Not Available melatonin 3 mg capsule Take by oral route. 02/07 completed Not Available Not Available Not Available Fluad Quad (6 5yr up)(PF) 60 mcg (15 mcg x 4)/0.5mL IM syringe 05/13 completed Not Available Not Available Not Available Vitals Date Recorded Body mass index (BMI) Body height Oxygen saturation Oxygen saturation in Arterial blood by Pulse oximetry Heart rate Body temperature Body weight Systolic blood pressure Diastolic blood pressure Provider Name and Address Organization Details Last Updated DateTime 2 25.7 kg/m2 175.26 cm 98 % 98 % 66 /min 97.8 [degF] 27806.0 7 g 120 mm[Hg] 60 mm[Hg] Not Available [facility] 3 01:12:21 Date Recorded Body mass index (BMI) Body height Oxygen saturation Oxygen saturation in Arterial blood by Pulse oximetry Heart rate Body temperature Body weight Systolic blood pressure Diastolic blood pressure Provider Name and Address Organization Details Last Updated DateTime 2 27.2 kg/m2 175.26 cm 97 % 97 % 68 /min 96.3 [degF] 17307 g 128 mm[Hg] 60 mm[Hg] Not Available [facility] 3 01:12:21 Date Recorded Body height Body mass index (BMI) Body weight Body temperature Heart rate Oxygen saturation Oxygen saturation in Arterial blood by Pulse oximetry Systolic blood pressure Diastolic blood pressure Provider Name and Address Organization Details Last Updated DateTime 3 175.26 cm 26.4 kg/m2 63973.0 3 g 97.2 [degF] 87 /min 98 % 98 % 102 mm[Hg] 64 mm[Hg] [employer] [facility] 3 15:26:05 Date Recorded Body height Body mass index (BMI) Body weight Body temperature Heart rate Oxygen saturation Oxygen saturation in Arterial blood by Pulse oximetry Systolic blood pressure Diastolic blood pressure Provider Name and Address Organization Details Last Updated DateTime 3 175.26 cm 26 kg/m2 86114.2 6 g 96.7 [degF] 90 /min 96 % 96 % 120 mm[Hg] 60 mm[Hg] Jewell Haynes [facility] [employer] [facility] 3 15:53:46 Date Recorded Body height Body mass index (BMI) Body weight Heart rate Oxygen saturation Oxygen saturation in Arterial blood by Pulse oximetry Systolic blood pressure Diastolic blood pressure Provider Name and Address Organization Details Last Updated DateTime 3 175.26 cm 25.4 kg/m2 29947.1 7 g 70 /min 96 % 96 % 166 mm[Hg] 66 mm[Hg] [employer] [facility] 3 14:54:16 Social History Question Answer Notes LastModified by Organizat ion Details LastModified Time Tobacco Smoking Status Never Smoker [facility] 10/30/2022 15:28:33 What Is Your Level Of Alcohol Consumption? Occasional [email or web address] Information not available 10/30/2022 What Is Your Level Of Caffeine Consumption? Moderate One Cup Everyday [email or web address] Information not available 10/30/2022 In The 14 Days Before Symptom Onset, Have You Had Close Contact With A Laboratory-confi rmed COVID-19 While That Case Was Ill? No [id number] Information not available 10/11/2022 In The 14 Days Before Symptom Onset, Have You Had Close Contact With A Person Who Is Under Investigation For COVID-19 While That Person Was Ill? 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 Yes [email or web address] Information not available 10/30/2022 Do You Use Any Illicit Or Recreational Drugs? No [email or web address] Information not available 10/30/2022 Sex: Unknown Functional Status None recorded. Mental Status None recorded. Family History Nothing Reported. Medical History No medical history recorded. Gynecological HistoryNo gynecological history recorded. Obstetrics History GPAL:G 0 P 0 0 0 0 Immunizations Vaccine Type Date Status Note Provider Nam e and Address Organization Details Recorded Time Influenza, split virus, quadrivalent, preservative 0 completed Not Available [facility] 10/11/2022 01:24:35 pneumococcal polysaccharide PPV23 7 completed Not Available [facility] 10/11/2022 01:24:35 Pneumococcal conjugate PCV 13 6 completed Not Available [facility] 10/11/2022 01:24:35 Past Encounters Encounter ID Performer Location Encounter Start Date Encounter Closed Date Diagnosis/Indication Diagnosis SNOMED-CT Code Diagnosis ICD10 Code Diagnosis Note [id number] [facility] [place] [address] [place] [address] 02/07/2021 00:00:00 02/07/2021 15:58:49 [id number] [facility] [place] [address] [place] [address] 06/13/2021 00:00:00 06/13/2021 15:37:03 [id number] [facility] [place] [address] [place] [address] 09/19/2021 00:00:00 09/19/2021 16:25:23 [id number] [facility] [place] [address] [place] [address] 02/01/2022 00:00:00 02/01/2022 16:03:40 [id number] [facility] [place] [address] [place] [address] 06/19/2022 00:00:00 06/19/2022 23:03:15 [id number] [facility] [place] [address] [place] [address] 07/31/2022 00:00:00 07/31/2022 17:00:28 [id number] [facility] [place] [address] [place] [address] 10/30/2022 15:12:30 10/30/2022 18:36:08 Bronchiectasis 52132942 J47.9 MildINstru cted on compliant flutter valve useCheck CT chest Obstructiv e sleep apnea syndrome 08637372 G47.33 She has not been compliant with machineUna ble to determine correction Discussed the risks of uncorrecte d NAI Mild chron ic obstructive pulmonary disease 508974375 J44.9 PFT in chartDecoxhealth maintenanc e inhaled therapyAlb uterol PRNDIscuss ed indication s for useINstruc baljeet on technique Periodic l imb movement disorder 908597902 G47.61 Continue Ropinirole 1.25mg and clonazepam 0.5mg [id number] [facility] [place] [address] [place] [address] 02/21/2023 15:45:29 02/21/2023 16:33:12 Bronchiectasis 42996165 J47.9 Mild per last CTInstruct ed on compliant flutter valve useCurrent CT chest with no evidence of this Obstructiv e sleep apnea syndrome 94615860 G47.33 She has not been compliant with machineUna ble to determine correction Discussed the risks of uncorrecte d NAI, including Mild chron ic obstructive pulmonary disease 905417777 J44.9 PFT in chartDecoxhealth maintenanc e inhaled therapyAlb uterol PRNDiscuss ed indication s for useInstruc baljeet on technique Periodic l imb movement disorder 061182431 G47.61 Continue Ropinirole 1.25mg and clonazepam 0.5mg [id number] Jodie DWIGHT Hess [facility] [place] [address] [place] [address] 04/24/2023 14:35:46 04/24/2023 16:40:32 Bronchiectasis 75196645 J47.9 Mild per last CTInstruct ed on compliant flutter valve useCurrent CT chest with scarring/a telectasis as well to LLL Obstructiv e sleep apnea syndrome 60831071 G47.33 She has not been 100% compliant with machineUna ble to determine correction Discussed the risks of uncorrecte d NAI, including Mild chron ic obstructive pulmonary disease 709233147 J44.9 PFT in chart - ratio 65% and FEV1 90%Decline s maintenanc e inhaled therapyAlb uterol PRNDiscuss ed indication s for useInstruc baljeet on technique Periodic l imb movement disorder 196919557 G47.61 Continue Ropinirole 1.25mg ([facility]) and clonazepam 0.5mg Health Concerns Section Related Observation LastModified by Organization Detai ls LastModified Time None Recorded Concern Status LastModified by Organization Details LastModified Time None Recorded Advance Directives Directive None Recorded Payers Encounter Date Sequence Insurance Name Policy Number Policy [place] Covered Member ID [place] Member ID Guarantor Name 10/30/2022 1 [employer] (MEDICARE REPLACEMENT PPO) [id number] 1 Diane Vahid [facility] [id number] Diane Redding [facility] 02/21/2023 1 [employer] (MEDICARE REPLACEMENT PPO) [id number] 1 Diane Redding [facility] [id number] Diane Reddign [facility] 04/24/2023 1 [employer] (MEDICARE REPLACEMENT PPO) [id number] 1 Diane Vahid [facility] [id number] Diane Redding [facility] Notes Date Note Type Note Provider Name and Address Organization Details Recorded Time 10/30/2022 text/html Evelyn presents today to follow up on bronchiectasis, cough, dyspnea, PLMD, NAI, fatigue, weakness, PAP machineShe has been unable to tolerate her PAP R/T coughEndorses significant fatigue and restless sleepImprovement in restless legs and sleep disturbances.PAP mask is comfortable, she does not wake due to leak or discomfort.Energy levels are poorNot using any inhalers, does have rescue MDI.She has not had a respiratory illness in over a year.She was hospitalized when the camera use for GI scope became stuck. She had excessive bleeding and required inpatient management. In addition she was found to be in AF RVR and ic scheduled for cardioversion next week. Jodie Hess, [employer] WORK[employer]- [address], [address], [place], [address], [place] 10/30/2022 21:47:05 02/21/2023 text/html Evelyn presents today to follow up on cough, dyspnea, PLMD, NAI, fatigueYara [address] yearShe has been unable to tolerate her PAP R/T coughShgabrielle is using this some nightsContinues to endorse significant fatigue and restless sleepImprovement in restless legs and sleep disturbances.PAP mask is comfortable, she does not wake due to leak or discomfort.Energy levels are poorNot using any inhalers, does have rescue MDI, she has never gotten clinical benefit from inhaled therapyShgabrielle has not had a respiratory illness in over a year.She had an ablation about a month ago. [place] [facility] [address], [facility] [address], [place], [address], [place] 02/21/2023 22:40:14 04/24/2023 text/html Evelyn presents today to follow up on cough, dyspnea, PLMD, NAI, fatigueYara has been wearing her PAP most nights but has some irritation to her nares.Continues to endorse significant fatigue and restless sleepMild improvement in restless legs and sleep disturbances.She got an iron infusion but tells me it did not work well enough, she has to go to [place] for a new type of infusionPAP mask is comfortable, she does not wake due to leak or discomfort.Energy levels are poorNot using any inhalers, does have rescue MDI, she has never gotten clinical benefit from inhaled therapyShgabrielle has not had a respiratory illness in over a year.Cough remains most days, endorses sinus drainage [place] [facility] [address], [facility] [address], [place], [address], [place] 04/24/2023 16:29:50 OBGyn Episode No OBEpisode recorded.
--- OUTSIDE RECORDS SUMMARY | 2024-10-04 08:30 | XMS_ITS | Clinical Summary ---
Author Organization [facility] Address [address] [place] [address] Care Team Providers Care Nurse Chemical Dependency Name Role Phone Tera Seals DO Primary Care Provider [phone] Allergies Active Allergy Reactions Criticality Noted Date Comments Gluten Meal Diarrhea 06/15/2019 Medications Calcium Carbonate-Vit D-Min (CALCIUM 1200) 4307-1485 MG-UNIT Chew Tab 10/02/2017 Active Ascorbic Acid [...] Comments Blood Pressure 154/93 08/05/2022 6:22 AM [place] [employer] [employer] Pulse 83 08/05/2022 6:22 AM [place] [employer] Temperature 36.6 C (97.9 F) 08/05/2022 6:22 AM [place] [employer] Respiratory Rate 20 08/04/2022 7:42 PM [place] [employer] Oxygen Saturation 92% 08/05/2022 6:22 AM [place] [employer] Inhaled Oxygen Concentration - - Weight 83.3 kg (183 lb 10.3 oz) 08/02/2022 2:14 AM [place] [employer] Height 172.7 cm (5' 8 ) 08/02/2022 2:14 AM [place] [employer] Body Mass Index 27.92 08/02/2022 2:14 AM [place] [employer] Plan of Treatment Health Maintenance Due Date [...] support at home upon discharge Lifestyle Yes Hidla Sainz RN Procedures Procedure Name Priority Date/Time Associated Diagnosis Comments COLONOSCOPY Routine 08/04/2022 8:56 AM [place] [employer] BONE DENSITY/DEXA Routine 01/16/2022 3:1 9 PM CDT Osteoporosis, senile from Last 3 Months or Most Recently Relevant to Health Maintenance Results * Colonoscopy (08/04/2022 8:56 AM [place] [employer]) us Meena Oneill NP GI PROCEDURE ORDERABLES [...] Relevant to Health Maintenance Insurance MED REPLACE [facility] MEDICARE MED REPLACE [facility] MEDICARE [place] [id number] Advance Directives * Full Code (Latest Code Status on File) Date Activated Date Inactivated Comments 08/02/2022 2:49 AM 08/05/2022 3:20 PM * Full Code Date Activated Date Inactivated Comments 06/03/2020 9:28 PM 06/04/2020 3:31 PM Care Teams Nurse Chemical Dependency Relationship Specialty Start Date End Date Tera Seals DO [address] [place] [address] PCP - General FAMILY PRACTICE 08/01/22
--- OUTSIDE RECORDS SUMMARY | 2024-10-04 08:30 | XMS_ITS | Referral Summary ---
Author Organization [facility] Address [address] [place] [address] Care Team Providers Care Guidance And Control System Engineer Name Role Phone Nl-Tawny Valdes - Unavailable Unavailab Ferny Harris MD PhD Unavailable [phone] Tera Seals DO Primary Care Provider Encounters Date Type Department Care Team Description 10/02/2024 2:00 PM BACK END WEB DEVELOPER Lab [facility] - Lab Collection [email or web address] [address] [place] [address] Celiac disease; Routine health maintenance; Deep vein thrombosis (DVT) associated with COVID-19; Portal vein thrombosis; Chronic anemia 10/02/2024 2:15 PM BACK END WEB DEVELOPER Lab [facility] Oncology Lab [address] [facility] [address] [place] [address] Arrived 10/02/2024 2:45 PM BACK END WEB DEVELOPER Office Visit [facility] Hematology [address] [place] [address] 6 [place] [address] Alejandro Shipman MD Iron deficiency anemia, unspecified iron deficiency anemia type (Primary Dx) 09/29/2024 Orders Only [facility] Gastroenterology [address] [facility] 12th [place] [address] [place] [address] Riesenberger, Crystal, RN Celiac disease (Primary Dx); Routine health maintenance 08/20/2024 Telephone [facility] Gastroenterology [address] [facility] 12th [place] [address] [place] [address] Earline Cartwright CPhT 08/01/2024 Orders Only [facility] Gastroenterology [address] [facility] 12th [place] [address] [place] [address] Imani Villalobso, RN 08/01/2024 1:00 PM BACK END WEB DEVELOPER Infusion [facility] [address] [place] [address] Iron deficiency anemia, unspecified iron deficiency anemia type (Primary Dx) 07/30/2024 2:00 PM BACK END WEB DEVELOPER Office Visit [facility] Rheumatology [address] [facility] 2nd Floor [address] [place] [address] Nikki Manzanares NP Hyperuricemia (Primary Dx) 07/24/2024 Documentation [facility] Clinical Trial [address] [place] [address] Louise Mayo BS 07/17/2024 Telephone [facility] Hematology [email or web address] Floor [address] [place] [address] Charley Meredith RN 07/16/2024 2:30 PM BACK END WEB DEVELOPER Infusion [facility] - Infusion [address] [facility] Floor 6 [place] [address] Iron deficiency anemia, unspecified iron deficiency anemia type (Primary Dx) 07/15/2024 1:15 PM BACK END WEB DEVELOPER Office Visit [facility] Cardiology [address] [facility] 8th [place] [address] [place] [id number] Ferny Kearns MD PhD Chronic systolic heart failure (CMS/HCC) (HCC) (Primary Dx); Hypertension, unspecified type; Hyperlipidemia, unspecified hyperlipidemia type; Atrial fibrillation with RVR (CMS/HCC) (HCC) 07/07/2024 Orders Only [facility] Hematology [address] [facility] Floor 6 [place] [address] Alejandro Shipman MD Iron deficiency anemia, unspecified iron deficiency anemia type (Primary Dx) 07/07/2024 Orders Only [facility] Hematology [address] [facility] Floor 6 [place] [address] Alejandro Shipman MD Iron deficiency anemia, unspecified iron deficiency anemia type (Primary Dx) from Last 3 Months Allergies Active Allergy Reactions Criticality Noted Date Comments Gluten Diarrhea Medium 06/15/2018 Metoprolol Hallucinations Medium 11/09/2022 Wheat Diarrhea Low 12/31/2012 Medications sertraline (ZOLOFT) 100 mg tablet Take 1 tablet (100 mg total) by mouth capper machine operator before breakfast 0 Active atorvastatin (LIPITOR) 40 mg tablet Take 1 tablet (40 mg total) by mouth daily 90 tablet 3 2 Active MAGNESIUM ORAL Take 1,000 mg by mouth 2 (two) times a day Active VITAMIN A ORAL Take 1 tablet by mouth capper machine operator before breakfast Active Farxiga 10 mg [...] 1 tablet (137 mcg total) by mouth capper machine operator before breakfast 4 Active ascorbic acid [...] BY MOUTH BEDTIME 60 capsule 5 Active predniSONE (DELTASONE) 10 mg tablet 5 Active Hospital, Clinic, or Other Facility Administered Medication Ordered Dose Route Frequency Start Date End Date Status perflutren protein-a (OPTISON) 3 mL in sodium chloride 0.9% 8 mL syringe 1 - 8 mL IV Once in imaging 04/19/2023 Active Active Problems Problem Noted Date Diagnosed Date Cardiomyopathy, ischemic 03/10/2024 Angiodysplasia of gastrointestinal tract 023 Assessment & Plan (06/27/2024 3:47 PM BACK END WEB DEVELOPER): If the patient is not able to [...] (09/24/2022): Added automatically from request for surgery [id number] Atrial fibrillation with RVR (CMS/HCC) Assessment & Plan (09/18/2022 1:45 PM BACK END WEB DEVELOPER): A fib diagnosed 08/16/2022, previously on metop [...] recs Assessment & Plan (09/17/2022 9:57 AM BACK END WEB DEVELOPER): A fib diagnosed 08/16/2022, previously on metop [...] recs Assessment & Plan (09/16/2022 10:20 AM BACK END WEB DEVELOPER): A fib diagnosed 08/16/2022, previously on metop [...] recs Assessment & Plan (09/15/2022 9:09 AM BACK END WEB DEVELOPER): A fib diagnosed 08/16/2022, previously on metop [...] recs Assessment & Plan (09/14/2022 11:08 AM BACK END WEB DEVELOPER): A fib diagnosed 08/16/2022, previously on metop [...] recs Assessment & Plan (09/13/2022 3:07 PM BACK END WEB DEVELOPER): A fib diagnosed 08/16/2022, previously on metop [...] (08/08/2022): Added automatically from request for surgery [id number] Anemia in other chronic diseases classified else where 02/15/2022 Depression 10/31/2021 Assessment & Plan (09/18/2022 1:45 PM BACK END WEB DEVELOPER): Continue home sertraline, klonopin Assessment & Plan (09/17/2022 9:57 AM BACK END WEB DEVELOPER): Continue home sertraline, klonopin Assessment & Plan (09/16/2022 10:20 AM BACK END WEB DEVELOPER): Continue home sertraline, klonopin Assessment & Plan (09/15/2022 9:12 AM BACK END WEB DEVELOPER): Continue home sertraline, klonopin Assessment & Plan (09/14/2022 11:08 AM BACK END WEB DEVELOPER): Continue home sertraline, klonopin Assessment & Plan (09/13/2022 3:12 PM BACK END WEB DEVELOPER): Continue home sertraline Assessment & Plan (11/01/2021 1:41 PM CDT): -Cont Clonazapam nightly and Sertraline 100 Assessment & Plan (10/31/2021 5:51 PM CDT): -Cont Clonazapam nightly and Sertraline 100 Coronary artery disease 08/18/2021 Overview (08/18/2021): Added automatically from request for surgery [id number] Assessment & Plan (12/13/2022 6:51 PM CDT): S/p LHC and PCI 08/2021: RCA and LCx, 10/2021: LAD and diagonal -Cont home Plavix 75, atorvastatin 40 + losartan 12.5 Assessment & Plan (09/18/2022 1:45 PM BACK END WEB DEVELOPER): S/p PCI 11/01 - plavix and xarelto on hold for procedure - metop as above - continue statin Assessment & Plan (09/17/2022 9:57 AM BACK END WEB DEVELOPER): S/p PCI 3/22 - plavix and xarelto on hold for procedure - metop as above - continue statin Assessment & Plan (09/16/2022 10:20 AM BACK END WEB DEVELOPER): S/p PCI 3/22 - plavix and xarelto on hold for procedure - metop as above - continue statin Assessment & Plan (09/15/2022 9:12 AM BACK END WEB DEVELOPER): S/p PCI 3/22 - plavix and xarelto on hold for procedure - metop as above - continue statin Assessment & Plan (09/14/2022 11:08 AM BACK END WEB DEVELOPER): S/p PCI 3/22 - plavix and xarelto on hold for procedure - metop as above - continue statin Assessment & Plan (09/13/2022 3:08 PM BACK END WEB DEVELOPER): S/p PCI 3/22 - plavix and xarelto [...] farixga Assessment & Plan (09/18/2022 1:45 PM BACK END WEB DEVELOPER): EF 40%, 2/2 ischemic CM - taking lasix as needed at home - BNP elevated on admission, not clinically volume overloaded on exam - s/p 1u pRBC 09/13, will hold further IVF - s/p lasix IV 40mg x1 09/14, will hold further diuresis at this time as pt appears dry, Cr improved w/ gentle IVF, will continue to be cautious w/ IVF given reduced EF - repeat TTE w/ reduced EF, normal IVC - cards c/s- appreciate recs Assessment & Plan (09/17/2022 9:57 AM BACK END WEB DEVELOPER): EF 40%, 2/2 ischemic CM - taking lasix as needed at home - BNP elevated on admission, not clinically volume overloaded on exam - s/p 1u pRBC 2, will hold further IVF - s/p lasix IV 40mg x1 2/2, will hold further diuresis at this time as pt appears dry, Cr improved w/ gentle IVF, will continue to be cautious w/ IVF given reduced EF - repeat TTE w/ reduced EF, normal IVC - cards c/s- appreciate recs Assessment & Plan (09/16/2022 10:20 AM BACK END WEB DEVELOPER): EF 40%, 2/2 ischemic CM - taking lasix as needed at home - BNP elevated on admission, not clinically volume overloaded on exam - s/p 1u pRBC 09/13, will hold further IVF - s/p lasix IV 40mg x1 2, will hold further diuresis at this time as pt appears euvolemic, Cr uptrending - repeat TTE w/ reduced EF, normal IVC - cards c/s- appreciate recs Assessment & Plan (09/15/2022 9:11 AM BACK END WEB DEVELOPER): EF 40%, 2/2 ischemic CM - taking lasix as needed at home - BNP elevated on admission, not clinically volume overloaded on exam - s/p 1u pRBC 09/13, will hold further IVF - s/p lasix IV 40mg x1 22, will hold further diuresis at this time as pt appears euvolemic, Cr uptrending - repeat TTE w/ reduced EF, normal IVC - cards c/s- appreciate recs Assessment & Plan (09/14/2022 11:08 AM BACK END WEB DEVELOPER): EF 40%, 2/2 ischemic CM - taking lasix as needed at home - BNP elevated on admission, not clinically volume overloaded on exam - s/p 1u pRBC 09/13, will hold further IVF - will give lasix IV 40mg x1 09/14 - repeat TTE - cards c/s- appreciate recs Assessment & Plan (09/13/2022 3:11 PM BACK END WEB DEVELOPER): EF 40%, 2/2 ischemic CM - taking [...] 03/2020 - appears comfortable upon transfer to [facility], exam improved with IV diuresis - diuresis [...] holding BB - NPO after midnight for LHC today - strict I & O, daily [...] 03/2020 - appears comfortable upon transfer to [facility], exam improved with IV diuresis - diuresis [...] 03/2020 - appears comfortable upon transfer to [facility], exam improved with IV diuresis - diuresis [...] 03/2020 - appears comfortable upon transfer to [facility], warm and wet on exam - will [...] (02/17/2021): Added automatically from request for surgery [id number] Assessment & Plan (06/27/2024 3:48 PM BACK END WEB DEVELOPER): Based on today's blood work she is [...] (02/17/2021): Added automatically from request for surgery [id number] Deep vein thrombosis (DVT) associated with COVID -19 09/13/2020 Assessment & Plan (09/18/2022 1:45 PM BACK END WEB DEVELOPER): Hold home xarelto for procedure as above Assessment & Plan (09/17/2022 9:57 AM BACK END WEB DEVELOPER): Hold home xarelto for procedure as above Assessment & Plan (09/16/2022 10:20 AM BACK END WEB DEVELOPER): Hold home xarelto for procedure as above Assessment & Plan (09/15/2022 9:12 AM BACK END WEB DEVELOPER): Hold home xarelto for procedure as above Assessment & Plan (09/14/2022 11:08 AM BACK END WEB DEVELOPER): Hold home xarelto for procedure as above Assessment & Plan (09/13/2022 3:13 PM BACK END WEB DEVELOPER): Hold home xarelto for procedure as above [...] 07/03/2020 Assessment & Plan (07/04/2020 11:44 AM BACK END WEB DEVELOPER): CT C/A/P 07/02 showed extensive portal venous [...] dc. 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 - Switched from Xarelto to [...] 07/03/2020 Assessment & Plan (07/04/2020 11:28 AM BACK END WEB DEVELOPER): Unclear etiology, likely related to underlying GI [...] (04/29/2020): Added automatically from request for surgery [id number] Gastroesophageal reflux disease 02/11/2020 Overview (02/11/2020): Added automatically from request for surgery [id number] Assessment & Plan (06/27/2024 3:44 PM BACK END WEB DEVELOPER): The patient will continue Protonix Assessment & [...] CBC Assessment & Plan (07/04/2020 11:33 AM BACK END WEB DEVELOPER): - Cont PPI daily Assessment & Plan (07/03/2020 11:50 AM BACK END WEB DEVELOPER): - Cont PPI daily Assessment & Plan (07/02/2020 1:59 PM BACK END WEB DEVELOPER): - Cont PPI daily Assessment & Plan (07/01/2020 2:59 PM BACK END WEB DEVELOPER): - Cont PPI daily Assessment & Plan (06/30/2020 2:10 PM BACK END WEB DEVELOPER): - Cont PPI IV BID Assessment & Plan (06/29/2020 2:04 PM BACK END WEB DEVELOPER): - Cont PPI IV BID Assessment & Plan (06/28/2020 2:09 PM BACK END WEB DEVELOPER): - Cont PPI IV BID Assessment & Plan (06/27/2020 6:05 AM BACK END WEB DEVELOPER): Currently starting pantoprazole 40 mg IV b.i.d. pending evaluation for GI bleed. Dysphagia 02/11/2020 Overview (02/11/2020): Added automatically from request for surgery [id number] Allergic rhinitis 08/11/2019 Periodic limb movement disorder 08/11/2019 Assessment & Plan (11/01/2021 1:40 PM CDT): -Cont home Ropinirole 0.5 Assessment & Plan (10/31/2021 5:44 PM CDT): -Cont home Ropinirole 0.5 Bronchiectasis without acute exacerbation 2018 Assessment & Plan (04/24/2024 10:12 PM CDT): Flutter valve use daily Start NAC She may benefit from vest therapy in the future Assessment & Plan (07/04/2020 11:33 AM BACK END WEB DEVELOPER): History of bronchiectasis per imaging and mild [...] now Assessment & Plan (07/03/2020 12:53 PM BACK END WEB DEVELOPER): History of bronchiectasis per imaging and mild [...] now Assessment & Plan (07/02/2020 2:00 PM BACK END WEB DEVELOPER): History of bronchiectasis per imaging and mild obstructive pulmonary disease per PFTs with patient recently prescribed albuterol and Symbicort which she reports she does not take as she does not really have any pulmonary symptoms except for when she was recently hospitalized with COVID-19 - Continue to monitor for now Assessment & Plan (07/01/2020 3:00 PM BACK END WEB DEVELOPER): History of bronchiectasis per imaging and mild obstructive pulmonary disease per PFTs with patient recently prescribed albuterol and Symbicort which she reports she does not take as she does not really have any pulmonary symptoms except for when she was recently hospitalized with COVID-19 - Continue to monitor for now Assessment & Plan (06/30/2020 2:10 PM BACK END WEB DEVELOPER): History of bronchiectasis per imaging and mild obstructive pulmonary disease per PFTs with patient recently prescribed albuterol and Symbicort which she reports she does not take as she does not really have any pulmonary symptoms except for when she was recently hospitalized with COVID-19. - Continue to monitor for now Assessment & Plan (06/29/2020 2:04 PM BACK END WEB DEVELOPER): History of bronchiectasis per imaging and mild obstructive pulmonary disease per PFTs with patient recently prescribed albuterol and Symbicort which she reports she does not take as she does not really have any pulmonary symptoms except for when she was recently hospitalized with COVID-19. - Continue to monitor for now Assessment & Plan (06/28/2020 2:09 PM BACK END WEB DEVELOPER): History of bronchiectasis per imaging and mild obstructive pulmonary disease per PFTs with patient recently prescribed albuterol and Symbicort which she reports she does not take as she does not really have any pulmonary symptoms except for when she was recently hospitalized with COVID-19. - Continue to monitor for now Assessment & Plan (06/27/2020 6:03 AM BACK END WEB DEVELOPER): History of bronchiectasis per imaging and mild [...] 07/10/2018 Assessment & Plan (08/15/2019 12:53 PM BACK END WEB DEVELOPER): - 73 y.o. woman with balance problems [...] worsens Assessment & Plan (07/07/2019 11:49 AM BACK END WEB DEVELOPER): - 73 y.o. woman with balance problems [...] 06/21/2018 Assessment & Plan (06/27/2024 3:45 PM BACK END WEB DEVELOPER): Unfortunately the patient's tTG is still elevated [...] imodium Assessment & Plan (07/04/2020 11:31 AM BACK END WEB DEVELOPER): - GI following - TTG IgA elevated, also noted to have villous blunting of duodenum consistent with ciliac disease, GI c/w inadvertent gluten exposure vs refractory ciliac disease which could be contributing to her diarrhea. Although, pt and family report that patient has been strict with her diet. - RD c/s regarding ciliac diet Assessment & Plan (07/03/2020 11:31 AM BACK END WEB DEVELOPER): - GI following - TTG IgA elevated, [...] diet Assessment & Plan (07/02/2020 2:00 PM BACK END WEB DEVELOPER): - GI following - TTG IgA elevated, also noted to have villous blunting of duodenum consistent with ciliac disease, GI is c/w inadvertent gluten exposure vs refractory ciliac disease which could be contributing to her diarrhea - RD c/s regarding gluten and wheat free diet Assessment & Plan (07/01/2020 3:31 PM BACK END WEB DEVELOPER): - GI following - TTG IgA elevated, also noted to have villous blunting of duodenum consistent with ciliac disease, GI is c/w inadvertent gluten exposure vs refractory ciliac disease which could be contributing to her diarrhea - RD c/s regarding gluten and wheat free diet Assessment & Plan (06/30/2020 2:10 PM BACK END WEB DEVELOPER): Continue gluten and wheat free diet once allowed to eat pending planned procedures. - GI c/s for inpatient scopes as above Assessment & Plan (06/29/2020 2:03 PM BACK END WEB DEVELOPER): Continue gluten and wheat free diet once allowed to eat pending planned procedures. - GI c/s for inpatient scopes as above Assessment & Plan (06/28/2020 2:07 PM BACK END WEB DEVELOPER): Continue gluten and wheat free diet once allowed to eat pending planned procedures. - GI c/s for inpatient scopes as above Assessment & Plan (06/27/2020 6:03 AM BACK END WEB DEVELOPER): Continue gluten and wheat free diet once allowed to eat pending planned procedures. 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 -I d/w GI biliary - plan for EUS-guided biopsy today Assessment & Plan (06/17/2018 12:43 PM BACK END WEB DEVELOPER): -seen on OSH chest CT after review by our radiologists. They recommend standard protocol C/A/P CT with contrast to better evaluate -add on LDH Pericardial effusion 06/15/2018 Assessment & Plan (06/27/2020 6:07 AM BACK END WEB DEVELOPER): History of duodenal ulcer. Continue PPI as above. Assessment & Plan (06/18/2018 10:11 AM BACK END WEB DEVELOPER): -reported large pericardial effusion, but only small here on echo and on review of OSH CT -possibly related to mediastinal mass Assessment & Plan (06/17/2018 12:49 PM BACK END WEB DEVELOPER): -reported large pericardial effusion, but only small here on echo and on review of OSH CT -possibly related to mediastinal mass -further imaging as above. Assessment & Plan (06/16/2018 11:08 AM BACK END WEB DEVELOPER): Transferred from [facility]SH with c/f new pericardial [...] 05/18/2018 Assessment & Plan (07/04/2020 11:30 AM BACK END WEB DEVELOPER): History of RA, PMR and fibromyalgia followed by rheumatology Dr. Robertson and managed with methotrexate. Patient reports being out of methotrexate for 2 weeks and being unable to contact her metalworker during this period of time. - Cont holding methotrexate, may resume at [place] Assessment & Plan (07/03/2020 11:14 AM BACK END WEB DEVELOPER): History of RA, PMR and fibromyalgia followed by rheumatology Dr. Robertson and managed with methotrexate. Patient reports being out of methotrexate for 2 weeks and being unable to contact her metalworker during this period of time. - Cont holding methotrexate in setting of ALEXANDRA, may resume at dc Assessment & Plan (07/02/2020 1:59 PM BACK END WEB DEVELOPER): History of RA, PMR and fibromyalgia followed by rheumatology Dr. Robertson and managed with methotrexate. Patient reports being out of methotrexate for 2 weeks and being unable to contact her metalworker during this period of time. - Cont holding methotrexate in setting of ALEXANDRA, may resume at dc Assessment & Plan (07/01/2020 2:58 PM BACK END WEB DEVELOPER): History of RA, PMR and fibromyalgia followed by rheumatology Dr. Robertson and managed with methotrexate. Patient reports being out of methotrexate for 2 weeks and being unable to contact her metalworker during this period of time. - Cont holding methotrexate in setting of ALEXANDRA, may resume at [place]j Assessment & Plan (06/30/2020 2:09 PM BACK END WEB DEVELOPER): History of RA, PMR and fibromyalgia followed by rheumatology Dr. Robertson and managed with methotrexate. Patient reports being out of methotrexate for 2 weeks and being unable to contact her metalworker during this period of time. - Cont holding methotrexate in setting of ALEXANDRA - Touch base with Rheumatology regarding refills Assessment & Plan (06/29/2020 2:03 PM BACK END WEB DEVELOPER): History of RA, PMR and fibromyalgia followed by rheumatology Dr. Robertson and managed with methotrexate. Patient reports being out of methotrexate for 2 weeks and being unable to contact her metalworker during this period of time. - Cont holding methotrexate in setting of ALEXANDRA -Touch base with Rheumatology regarding refills Assessment & Plan (06/28/2020 1:58 PM BACK END WEB DEVELOPER): History of RA, PMR and fibromyalgia followed by rheumatology Dr. Robertson and managed with methotrexate. Patient reports being out of methotrexate for 2 weeks and being unable to contact her metalworker during this period of time. - Cont holding methotrexate in setting of ALEXANDRA -Touch base with Rheumatology regarding refills Assessment & Plan (06/27/2020 6:08 AM BACK END WEB DEVELOPER): History of RA, PMR and fibromyalgia followed by rheumatology Dr. Robertson and managed with methotrexate. Patient reports being at a methotrexate for 2 weeks and being unable to contact her metalworker during this period of time. -given acute renal failure reported by the patient at the outside hospital, it may have actually been beneficial that she was not taking methotrexate during this time. -follow admission creatinine, continue holding methotrexate for now -touch base with Rheumatology regarding refills Assessment & Plan (06/18/2018 10:09 AM BACK END WEB DEVELOPER): -Serologic workup for underlying rheumatic disease unremarkable. No active synovitis on exam. -Largely resolved. Assessment & Plan (06/17/2018 12:45 PM BACK END WEB DEVELOPER): -Serologic workup for underlying rheumatic disease unremarkable. No active synovitis on exam. Assessment & Plan (06/16/2018 11:12 AM BACK END WEB DEVELOPER): Noted joint pains, diffusely, mainly left shoulder. [...] 8 Assessment & Plan (07/07/2020 4:12 PM BACK END WEB DEVELOPER): Hx chronic diarrhea, possible celiac, initially bloody, [...] PRN. Assessment & Plan (07/04/2020 11:25 AM BACK END WEB DEVELOPER): Hx of chronic diarrhea in setting of [...] <7 Assessment & Plan (07/03/2020 12:57 PM BACK END WEB DEVELOPER): Hx of chronic diarrhea in setting of [...] <7 Assessment & Plan (07/02/2020 2:05 PM BACK END WEB DEVELOPER): Hx of chronic diarrhea in setting of [...] recs Assessment & Plan (07/01/2020 3:08 PM BACK END WEB DEVELOPER): Hx of chronic diarrhea in setting of [...] recs Assessment & Plan (06/30/2020 2:13 PM BACK END WEB DEVELOPER): Hx of chronic diarrhea in setting of [...] EGD/C-scope Assessment & Plan (06/29/2020 1:59 PM BACK END WEB DEVELOPER): Hx of chronic diarrhea in setting of [...] signed Assessment & Plan (06/28/2020 2:14 PM BACK END WEB DEVELOPER): Hx of chronic diarrhea in setting of [...] signed Assessment & Plan (06/27/2020 6:14 AM BACK END WEB DEVELOPER): Patient with chronic diarrhea in setting of [...] signed Assessment & Plan (06/18/2018 10:10 AM BACK END WEB DEVELOPER): Resolved with gluten-free diet, although biopsies weren't consistent with celiac Assessment & Plan (06/17/2018 12:45 PM BACK END WEB DEVELOPER): Resolved with gluten-free diet Assessment & Plan (06/16/2018 11:00 AM BACK END WEB DEVELOPER): Resolved. Assessment & Plan (06/15/2018 5:37 AM [...] 05/17/2018 Assessment & Plan (06/18/2018 10:10 AM BACK END WEB DEVELOPER): -cont therapeutic Lovenox (holding dose for procedure today) Assessment & Plan (06/17/2018 12:47 PM BACK END WEB DEVELOPER): -cont therapeutic Lovenox Assessment & Plan (06/15/2018 [...] oxybutynin Assessment & Plan (07/04/2020 11:29 AM BACK END WEB DEVELOPER): - Cont oxybutynin Assessment & Plan (07/03/2020 11:14 AM BACK END WEB DEVELOPER): - Cont oxybutynin Assessment & Plan (07/02/2020 1:59 PM BACK END WEB DEVELOPER): - Cont oxybutynin Assessment & Plan (07/01/2020 2:58 PM BACK END WEB DEVELOPER): - Cont oxybutynin Assessment & Plan (06/30/2020 2:10 PM BACK END WEB DEVELOPER): - Cont oxybutynin - Cr now improving, brar dc'd Assessment & Plan (06/29/2020 2:03 PM BACK END WEB DEVELOPER): - Cont oxybutynin - Cr now improving, brar dc'd Assessment & Plan (06/28/2020 2:00 PM BACK END WEB DEVELOPER): - Cont oxybutynin - Cr now improving, will dc brar and do a void trial Assessment & Plan (06/27/2020 6:07 AM BACK END WEB DEVELOPER): Resume oxybutynin. Currently with Brar in place. Pending creatinine will remove Brar and attempt voiding trial. Assessment & Plan (05/17/2018 2:16 AM CDT): Continue home Mybretriq Hypothyroidism 05/17/2016 Assessment & Plan (12/13/2022 6:48 PM CDT): -Cont home Synthroid 137 Assessment & Plan (09/18/2022 1:45 PM BACK END WEB DEVELOPER): Continue home synthroid - check TSH given RVR- wnl Assessment & Plan (09/17/2022 9:58 AM BACK END WEB DEVELOPER): Continue home synthroid - check TSH given RVR- wnl Assessment & Plan (09/16/2022 10:21 AM BACK END WEB DEVELOPER): Continue home synthroid - check TSH given RVR- wnl Assessment & Plan (09/15/2022 9:12 AM BACK END WEB DEVELOPER): Continue home synthroid - check TSH given RVR- wnl Assessment & Plan (09/14/2022 11:09 AM BACK END WEB DEVELOPER): Continue home synthroid - check TSH given RVR- wnl Assessment & Plan (09/13/2022 3:10 PM BACK END WEB DEVELOPER): Continue home synthroid - check TSH given [...] now Assessment & Plan (07/04/2020 11:29 AM BACK END WEB DEVELOPER): - TSH 2.16, continue home Synthroid Assessment & Plan (07/03/2020 11:13 AM BACK END WEB DEVELOPER): - TSH 2.16, continue home Synthroid Assessment & Plan (07/02/2020 1:59 PM BACK END WEB DEVELOPER): - TSH 2.16, continue home Synthroid Assessment & Plan (07/01/2020 2:59 PM BACK END WEB DEVELOPER): - TSH 2.16, continue home Synthroid Assessment & Plan (06/30/2020 2:10 PM BACK END WEB DEVELOPER): - TSH 2.16, continue home Synthroid Assessment & Plan (06/29/2020 2:03 PM BACK END WEB DEVELOPER): - TSH 2.16, continue home Synthroid Assessment & Plan (06/28/2020 1:57 PM BACK END WEB DEVELOPER): - TSH 2.16, continue home Synthroid Assessment & Plan (06/27/2020 6:06 AM BACK END WEB DEVELOPER): Add on TSH, continue home Synthroid. Assessment & Plan (06/18/2018 10:10 AM BACK END WEB DEVELOPER): -cont levothyroxine Assessment & Plan (06/17/2018 12:47 PM BACK END WEB DEVELOPER): -cont levothyroxine Assessment & Plan (06/16/2018 11:03 AM BACK END WEB DEVELOPER): Checked TSH and progressive elevation to 9.10 [...] protocol Assessment & Plan (06/18/2018 10:09 AM BACK END WEB DEVELOPER): Continue home nocturnal CPAP at 9 Assessment & Plan (06/17/2018 12:45 PM BACK END WEB DEVELOPER): Continue home CPAP at 9. Compliant with CPAP as inpatient. Assessment & Plan (06/16/2018 11:03 AM BACK END WEB DEVELOPER): Continue home CPAP at 9. Compliant with [...] above Assessment & Plan (07/04/2020 11:29 AM BACK END WEB DEVELOPER): - Hold losartan in setting of ALEXANDRA, normotensive, may resume at dc Assessment & Plan (07/03/2020 11:13 AM BACK END WEB DEVELOPER): - Hold losartan in setting of ALEXANDRA, normotensive, may resume at dc Assessment & Plan (07/02/2020 1:59 PM BACK END WEB DEVELOPER): - Hold losartan in setting of ALEXANDRA, may resume at dc Assessment & Plan (07/01/2020 2:59 PM BACK END WEB DEVELOPER): - Hold losartan in setting of ALEXANDRA, may resume at dc Assessment & Plan (06/30/2020 2:10 PM BACK END WEB DEVELOPER): - Hold losartan in setting of ALEXANDRA Assessment & Plan (06/29/2020 2:03 PM BACK END WEB DEVELOPER): - Hold losartan in setting of ALEXANDRA Assessment & Plan (06/28/2020 1:56 PM BACK END WEB DEVELOPER): - Holding losartan in setting of ALEXANDRA Assessment & Plan (06/27/2020 6:06 AM BACK END WEB DEVELOPER): Holding losartan 25 mg daily given reported acute renal failure on presentation and concern for GI bleed/diarrhea. Can restart alternative antihypertensive as needed. Assessment & Plan (05/17/2018 2:14 AM CDT): Patient is on losartan 25 mg qday. She was hypotensive on admission to /. Hold in the setting of hypotension. 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 With some somnolence 07/05. Improved after holding home klonopin. Also holding ropinirole. Developed some mild withdrawal tremors with holding klonopin so resumed today and will recommend to taper on outpatient basis given propensity for delirium. Assessment & Plan (07/04/2020 11:27 AM BACK END WEB DEVELOPER): Appeare confused/lethargic over the last few days, [...] Delirium and fall precautions - Hold some INSTRUMENT REPAIR SUPERVISOR affecting meds Assessment & Plan (07/03/2020 12:52 PM BACK END WEB DEVELOPER): Appears confused/lethargic over the last few days, [...] and fall precautions - Will hold some INSTRUMENT REPAIR SUPERVISOR affecting meds Assessment & Plan (07/02/2020 2:08 PM BACK END WEB DEVELOPER): Appears confused over the last few days, [...] precautions Assessment & Plan (07/01/2020 3:24 PM BACK END WEB DEVELOPER): Appeared confused yesterday and today, daughter reports [...] 10/31/2021 Assessment & Plan (07/04/2020 11:33 AM BACK END WEB DEVELOPER): - Recovered - diagnosed 05/23, repeat covid Ag testing negative Assessment & Plan (07/03/2020 12:12 PM BACK END WEB DEVELOPER): - Recovered - diagnosed 05/22, repeat covid Ag testing negative Assessment & Plan (07/02/2020 1:59 PM BACK END WEB DEVELOPER): - Recovered - diagnosed 05/22, repeat covid Ag testing negative Assessment & Plan (07/01/2020 2:59 PM BACK END WEB DEVELOPER): - Recovered - diagnosed 05/22, repeat covid Ag testing negative Assessment & Plan (06/30/2020 2:10 PM BACK END WEB DEVELOPER): Recovered - diagnosed 05/22, repeat covid Ag testing negative Assessment & Plan (06/29/2020 2:06 PM BACK END WEB DEVELOPER): Recovered - diagnosed 05/22, repeat covid Ag testing negative Assessment & Plan (06/28/2020 2:10 PM BACK END WEB DEVELOPER): History of COVID-19 infection initially diagnosed in May 22, 2020 at an OSH. Labs not currently available for review. Patient required hospitalization for decreased saturations although is now recovered. - Repeat COVID swab negative here Assessment & Plan (06/27/2020 6:18 AM BACK END WEB DEVELOPER): History of COVID-19 infection initially diagnosed in [...] 10/31/2021 Assessment & Plan (07/06/2020 3:49 PM BACK END WEB DEVELOPER): Urine culture with pansensitive E coli at OSH. S/p 5 days of abx at OSH and 5d CTX here. Assessment & Plan (07/04/2020 11:29 AM BACK END WEB DEVELOPER): Urine culture with pansensitive E coli at OSH. Unclear what antibiotic she was receiving although presumably she had received 5 days of it. - Repeat UA 2+ LE, 11-20 wbc 3+ yeast - Urine cx no growth, no urinary symptoms - Completed 5 days of CTX here Assessment & Plan (07/03/2020 11:13 AM BACK END WEB DEVELOPER): Urine culture with pansensitive E coli at OSH. Unclear what antibiotic she was receiving although presumably she has received 5 days of it. - Repeat UA 2+ LE, 11-20 wbc 3+ yeast - no urinary symptoms - Urine cx no growth - Completed 5 days of CTX here on 07/01 Assessment & Plan (07/02/2020 1:58 PM BACK END WEB DEVELOPER): Urine culture with pansensitive E coli at OSH. Unclear what antibiotic she was receiving although presumably she has received 5 days of it. - Repeat UA 2+ LE, 11-20 wbc 3+ yeast - no urinary symptoms - Urine cx no growth - Completed 5 days of CTX here on 07/01 Assessment & Plan (07/01/2020 2:58 PM BACK END WEB DEVELOPER): Urine culture with pansensitive E coli at OSH. Unclear what antibiotic she was receiving although presumably she has received 5 days of it. - Repeat UA 2+ LE, 11-20 wbc 3+ yeast - no urinary symptoms - Urine cx no growth - Continue CTX Assessment & Plan (06/30/2020 2:09 PM BACK END WEB DEVELOPER): Urine culture with pansensitive E coli. Unclear what antibiotic she was receiving although presumably she has received 5 days of it. - Repeat UA 2+ LE, 11-20 wbc 3+ yeast - no urinary symptoms - Urine cx no growth - Continue CTX for now Assessment & Plan (06/29/2020 2:03 PM BACK END WEB DEVELOPER): Urine culture with pansensitive E coli. Unclear what antibiotic she was receiving although presumably she has received 5 days of it. - Repeat UA 2+ LE, 11-20 wbc 3+ yeast - no urinary symptoms - Urine cx no growth - Continues to have rising leukocytosis, will resume CTX and CTM Assessment & Plan (06/28/2020 2:13 PM BACK END WEB DEVELOPER): Urine culture with pansensitive E coli. Unclear what antibiotic she was receiving although presumably she has received 5 days of it. - Repeat UA 2+ LE, 11-20 wbc 3+ yeast - no urinary symptoms - Urine cx no growth - Dc empiric CTX Assessment & Plan (06/27/2020 6:14 AM BACK END WEB DEVELOPER): Urine culture with pansensitive E coli. Unclear what antibiotic she was receiving although presumably she has received 5 days of it. Will repeat UA and decide on re-initiation of antibiotics at that point. Fatigue 08/11/2019 10/31/2021 VTE (venous thromboembolism) 05/22/2019 10/31/2021 Assessment & Plan (07/04/2020 11:32 AM BACK END WEB DEVELOPER): History of unprovoked PE and lower extremity [...] gtt. Assessment & Plan (07/03/2020 12:52 PM BACK END WEB DEVELOPER): History of unprovoked PE and lower extremity [...] 07/02 Assessment & Plan (07/02/2020 1:58 PM BACK END WEB DEVELOPER): History of unprovoked PE and lower extremity [...] EGD/C-scope Assessment & Plan (07/01/2020 2:57 PM BACK END WEB DEVELOPER): History of unprovoked PE and lower extremity [...] EGD/C-scope Assessment & Plan (06/30/2020 2:08 PM BACK END WEB DEVELOPER): History of unprovoked PE and lower extremity [...] hold Assessment & Plan (06/29/2020 2:04 PM BACK END WEB DEVELOPER): History of unprovoked PE and lower extremity [...] hold Assessment & Plan (06/28/2020 2:08 PM BACK END WEB DEVELOPER): History of unprovoked PE and lower extremity [...] hold Assessment & Plan (06/27/2020 6:05 AM BACK END WEB DEVELOPER): History of unprovoked PE and lower extremity [...] 06/18/2018 Assessment & Plan (06/16/2018 10:57 AM BACK END WEB DEVELOPER): Resolving sepsis due to PNA. Febrile and [...] 07/30/2018 Assessment & Plan (07/07/2019 11:41 AM BACK END WEB DEVELOPER): 2 Elevated INR 05/20/2018 05/21/2018 Assessment & [...] 01/24/2023 How often do you attend chur or pentecostalism services? Never 01/24/2023 Do you belong to any clubs o r organizations such as taoist groups, unions, fraternal or athletic groups, or [...] place to sleep or slept in a care home (including now)? No 01/24/2023 Personal Safety Answer Date Recorded Have you ever been in or are you currently in a harmful physical or emotional relationship or is someone making you feel afraid or unsafe? Denies 01/16/2023 Comments No Sex and Gender Information Value Date Recorded Sex Assigned at Not on file Legal Sex Female 6:53 AM BACK END WEB DEVELOPER Gender Identity Not on file Sexual Orientation Not on file Last Filed Vital Signs Vital Sign Reading Time Taken Comments Blood Pressure 116/71 10/02/2024 2:37 PM BACK END WEB DEVELOPER Pulse 69 10/02/2024 2:37 PM BACK END WEB DEVELOPER Temperature 36.4 C (97.6 F) 10/02/2024 2:37 PM BACK END WEB DEVELOPER Respiratory Rate 18 10/02/2024 2:37 PM BACK END WEB DEVELOPER Oxygen Saturation 96% 10/02/2024 2:37 PM BACK END WEB DEVELOPER Inhaled Oxygen Concentration - - Weight 76.7 kg (169 lb) 10/02/2024 2:37 PM BACK END WEB DEVELOPER Height 175.3 cm (5' 9 ) 07/30/2024 2:01 PM BACK END WEB DEVELOPER Body Mass Index 24.96 07/30/2024 2:01 PM BACK END WEB DEVELOPER Plan of Treatment Not on file Medical Devices Implanted Type Area Radar Scientist Device Identifier Shelf Expiration Date Model / Serial / Lot [employer] Vascade Mvp 6-12fr Venous Closure [id number] - [id number] - [id number] Implanted:Qty: 1 on 12/13/2022 by Yohan Carpenter MD at [facility] Collagen Right: Femoral Vein [employer] 09/12/2024 800-612C- 10U / [id number] / [id number] [employer] Vascade Mvp 6-12fr Venous Closure [id number] - [id number] - [id number] Implanted:Qty: 1 on 12/13/2022 by Yohan Carpenter MD at [facility] Collagen Left: Femoral Vein [employer] 09/12/2024 800-612C- 10U / [id number] / [id number] [employer] Vascade Mvp 6-12fr Venous Closure [id number] - [id number] - [id number] Implanted:Qty: 1 on 12/13/2022 by Yohan Carpenter MD at [facility] Collagen Left: Femoral Vein [employer] 09/12/2024 800-612C- 10U / [id number] [id number] / [id number] [employer] Device Closure Vascade Od5 Fr Femoral Artery [id number] - [id number] - [id number] Implanted:Qty: 1 on 12/13/2022 by Yohan Carpenter MD at [facility] Collagen Right: Femoral Vein [employer] 09/04/2024 [id number] -05U / [id number] / Med[employer] Usa [employer] X [id number] Resolute Abhijeet 3.5mm 2.1-2.7fr 18mm 140cm Rapid Exchange - [id number] Implanted:Qty: 1 on 08/18/2021 by Hero Hernandez MD at [facility] Stent Med[employer]onic Inc 06/10/2024 [id number] / / [id number] [employer] Inc [id number] Stent Coronary De Rx Cocr Ors Msn 2.5x35mm - [id number] Implanted:Qty: 1 on 08/18/2021 by Hero Hernandez MD at [facility] Stent [employer] 02/28/2023 [id number] / / [id number] SAVO Wayne [id number] Synergy Xd Monorail 2.75mm 32mm 144cm Delivery System 1 Access - [id number] Implanted:Qty: 1 on 10/31/2021 by Hero Hernandez MD at [facility] Stent [employer] 11/18/2022 [id number] / / [id number] [employer] Wayne [id number] Synergy Xd Monorail 3mm 16mm 144cm Delivery System 1 Access Port - [id number] Implanted:Qty: 1 on 10/31/2021 by Hero Hernandez MD at [facility] Stent [employer] 01/19/2023 [id number] / / [id number] [employer] [id number] Synergy Xd Monorail 2.25mm 12mm 144cm Delivery System 1 Access - [id number] Implanted:Qty: 1 on 10/31/2021 by Hero Hernandez MD at [facility] Stent [employer] 06/08/2023 [id number] / / [id number] [employer] [id number] Synergy Xd Monorail 2.25mm 16mm 144cm Delivery System 1 Access - [id number] Implanted:Qty: 1 on 10/31/2021 by Hero Hernandez MD at [facility] Stent [employer] 12/14/2022 [id number] / / [id number] Bilateral: Breast Explanted Type Area Radar Scientist Device Identifier Shelf Expiration Date Model / Serial / Lot Implantable Loop Recorder-07/09 Implanted:06/14 (Quantity not on file) Explanted:03/13 (Quantity not on file) Implantable Loop Recorder N/A: Heart [employer] / / Procedures Procedure Name Priority Date/Time Associated Diagnosis Comments T3, FREE Routine 10/02/2024 2:16 PM BACK END WEB DEVELOPER EGFR Routine 10/02/2024 2:16 PM BACK END WEB DEVELOPER Deep vein thrombosis (DVT) associated with COVID-19 Portal vein thrombosis Chronic anemia T4, FREE Routine 10/02/2024 2:16 PM BACK END WEB DEVELOPER HEMOGLOBIN A1C Routine 10/02/2024 2:16 PM BACK END WEB DEVELOPER LIPID PANEL Routine 10/02/2024 2:16 PM BACK END WEB DEVELOPER THYROID FUNCTION CASCADE Routine 10/02/2024 2:16 PM BACK END WEB DEVELOPER DIFFERENTIAL AUTO Routine 10/02/2024 2:1 6 PM BACK END WEB DEVELOPER Deep vein thrombosis (DVT) associated with COVID-19 Portal vein thrombosis Chronic anemia CBC WITH AUTO DIFFERENTIAL Routine 10/02/2024 2:16 PM BACK END WEB DEVELOPER Deep vein thrombosis (DVT) associated with COVID-19 Portal vein thrombosis Chronic anemia IRON PROFILE W/ IBC Routine 10/02/2024 2 :16 PM BACK END WEB DEVELOPER Deep vein thrombosis (DVT) associated with COVID-19 Portal vein thrombosis Chronic anemia FERRITIN Routine 10/02/2024 2:16 PM BACK END WEB DEVELOPER Deep vein thrombosis (DVT) associated with COVID-19 Portal vein thrombosis Chronic anemia COMPREHENSIVE METABOLIC PANEL Routine 10/02/2024 2:16 PM BACK END WEB DEVELOPER Deep vein thrombosis (DVT) associated with COVID-19 Portal vein thrombosis Chronic anemia COLONOSCOPY 03/10/2021 11:25 AM CDT HEPATITIS C ANTIBODY Routine 08/23/2018 11:13 AM BACK END WEB DEVELOPER Eosinophilia from Last 3 Months or Most Recently Relevant to Health Maintenance Results * (ABNORMAL) eGFR (10/02/2024 2:16 PM BACK END WEB DEVELOPER) [facility] eGFR 33(L) >=60 mL/min/1. 73 m2 Comment: Interpretive Data Reference Interval Normal >/= 90 mL/min/1.73m2 Mildly decreased* 60 - 89 mL/min/1.73m2 Mildly to moderately decreased 45 - 59 mL/min/1.73m2 Moderately to severely decreased 30 - 44 mL/min/1.73m2 Severely decreased 15 - 29 mL/min/1.73m2 Kidney Failure < 15 mL/min/1.73m2 *Relative to young adult level Estimated glomerular filtration rate is determined by the 2020 CKD-EPI equation recommended by the National Kidney Foundation (A Unifying Approach to GFR Estimation: Recommendations of the NKF-ASK Task Force on Reassessing the Inclusion of Race in Diagnosing Kidney Disease, JASN 2020). The CKD-EPI equation should not be used for patients with unstable renal function and has not been validated in children and those over 70. Current interpretive data was last reviewed 2021. Blood 10/02/2024 2:16 PM BACK END WEB DEVELOPER 10/02/2024 2:48 PM BACK END WEB DEVELOPER us Alejandro Shipman MD LAB BLOOD ORDERABLES Final R esult [facility] Department [place] [address] * Differential, auto (10/02/2024 2:16 PM BACK END WEB DEVELOPER) Neutrophil abs 3.1 1.5 - 6.5 K/cumm Comment:Testing performed by : [facility], [address] [place] [phone] Lymphocyte abs 0.9 0.8 - 3.3 K/cumm [facility] Comment:Testing performed by : [facility], [address] [place] [phone] Monocyte abs 0.8 0.2 - 0.8 K/cumm [facility] Comment:Testing performed by : [facility], [address] [place] [phone] Eosinophil abs 0.4 0.0 - 0.5 K/cumm [facility] Comment:Testing performed by : [facility], [address] [place] [phone] Basophil abs 0.0 0.0 - 0.1 K/cumm [facility] Comment:Testing performed by : [facility], [address] [place] [phone] Neutrophil pct 58.8 % [facility] Comment: Interpretive Data Percent cell count reference ranges are not reported, since discordance with absolute values may lead to misinterpretation of CBC data. Current Interpretive Data was last revised on 2017. Testing performed by: [facility], [address] [place] [phone] Lymphocyte pct 17.4 % [facility] Comment: Interpretive Data Percent cell count reference ranges are not reported, since discordance with absolute values may lead to misinterpretation of CBC data. Current Interpretive Data was last revised on 2017. Testing performed by: [facility], [address] [place] [phone] Monocyte pct 14.9 % [facility] Comment: Interpretive Data Percent cell count reference ranges are not reported, since discordance with absolute values may lead to misinterpretation of CBC data. Current Interpretive Data was last revised on 2017. Testing performed by: [facility], [address] [place] [phone] Eosinophil pct 8.1 % [facility] Comment: Interpretive Data Percent cell count reference ranges are not reported, since discordance with absolute values may lead to misinterpretation of CBC data. Current Interpretive Data was last revised on 2017. Testing performed by: [facility], [address] [place] [phone] Basophil pct 0.8 % [facility] Comment: Interpretive Data Percent cell count reference ranges are not reported, since discordance with absolute values may lead to misinterpretation of CBC data. Current Interpretive Data was last revised on 2017. Testing performed by: [facility], [address] [place] [phone] Blood 10/02/2024 2:16 PM BACK END WEB DEVELOPER 10/02/2024 2:39 PM BACK END WEB DEVELOPER Alejandro Shipman MD LAB BLOOD ORDERABLES Final R esult [facility] Department [place] [address] * (ABNORMAL) Thyroid Function [place] (10/02/2024 2:16 PM BACK END WEB DEVELOPER) Pathologist [facility] TSH 0.09(L) 0.30 - 4.20 mcIUnit/mL Blood 10/02/2024 2:16 PM BACK END WEB DEVELOPER 10/02/2024 2:41 PM BACK END WEB DEVELOPER Alejandro Shipman MD LAB BLOOD ORDERABLES Final R esult Performing Organization Address City/[facility] Co de Phone Number [facility] Department [place] [address] * Iron profile w/ IBC (10/02/2024 2:16 PM BACK END WEB DEVELOPER) [facility] Iron 49 35 - 145 mcg/dL TIBC See Comment 250 - 400 mcg/dL [facility] Comment:Unable to calculate Transferrin saturation See Comment 20 - 50 % [facility] Comment:Unable to calculate Blood 10/02/2024 2:16 PM BACK END WEB DEVELOPER 10/02/2024 2:48 PM BACK END WEB DEVELOPER Alejandro Shipman MD LAB BLOOD ORDERABLES Final R esult Performing Organization Address [facility] de Phone Number [facility] Department [place] [address] * (ABNORMAL) CBC with auto differential (10/02/2024 2:16 PM BACK END WEB DEVELOPER) [facility] WBC 5.3 3.8 - 9.9 K/cumm Comment:Testing performed by : [facility], [address] [place] [phone] Hgb 13.5 11.9 - 15.5 g/dL [facility] Comment:Testing performed by : [facility], [address] [place] [phone] Hct 41.7 35.6 - 45.5 % [facility] Comment:Testing performed by : [facility], [address] [place] [phone] Plt 158 150 - 400 K/cumm [facility] Comment:Testing performed by : [facility], [address] [place], [place] [phone] MPV 11.1(H) 6.8 - 10.4 fL [facility] Comment:Testing performed by : [facility], [address] [place], [place] [phone] RBC 4.33 3.90 - 5.20 M/cumm [facility] Comment:Testing performed by : [facility], [address] [place], [place] [phone] MCV 96.2 81.3 - 96.4 fL [facility] Comment:Testing performed by : [facility], [address] [place], [place] [phone] MCH 31.2 27.1 - 33.3 pg [facility] Comment:Testing performed by : [facility], [address] [place], [place] [phone] MCHC 32.4 32.3 - 35.7 g/dL [facility] Comment:Testing performed by : [facility], [address] [place], [place] [phone] RDW CV 26.5(H) 11.1 - 14.9 % [facility] Comment:Testing performed by : [facility], [address] [place], [place] [phone] NRBC abs 0.00 0.00 - 0.01 K/cumm [facility] Comment:Testing performed by : [facility], [address] [place], [place] [phone] Blood 10/02/2024 2:16 PM BACK END WEB DEVELOPER 10/02/2024 2:39 PM BACK END WEB DEVELOPER us Alejandro Shipman MD LAB BLOOD ORDERABLES Final R esult [facility] Department [place] [address] * T3, free (10/02/2024 2:16 PM BACK END WEB DEVELOPER) Free T3 2.8 2.0 - 4.4 pg/mL Blood 10/02/2024 2:16 PM BACK END WEB DEVELOPER 10/02/2024 2:48 PM BACK END WEB DEVELOPER Narrative [facility] - 10/02/2024 4:06 PM BACK END WEB DEVELOPER This test was reflexed from a T4 result. Result [facility] Alejandro Shipman MD LAB BLOOD ORDERABLES Final R esult Performing Organization Address [facility] Co de Phone Number [facility] [place] [address] * T4, free (10/02/2024 2:16 PM BACK END WEB DEVELOPER) Free T4 1.20 0.90 - 1.70 ng/dL Blood 10/02/2024 2:16 PM BACK END WEB DEVELOPER 10/02/2024 2:48 PM BACK END WEB DEVELOPER Narrative [facility] - 10/02/2024 3:38 PM BACK END WEB DEVELOPER This test was reflexed from a TSH result. Result [facility] Alejandro Shipman MD LAB BLOOD ORDERABLES Final R esult Performing Organization Address [facility] de Phone Number [facility] [place] [address] * (ABNORMAL) Hemoglobin A1c (10/02/2024 2:16 PM BACK END WEB DEVELOPER) [facility] Hgb A1C 5.9(H) 4.0 - 5.6 % Estimated Average Glucose 123 mg/dL [facility] Comment: The ADA recommends reporting an estimated Average Glucose (eAG) with all Hemoglobin A1c results using the equation derived from a study of 507 normal and diabetic adults. Minority populations were underrepresented and children were not included. (Diabetes Care 2020; 43(S1): S66-S76). The eAG is not equivalent to a fasting glucose. Blood 10/02/2024 2:16 PM BACK END WEB DEVELOPER 10/02/2024 2:43 PM BACK END WEB DEVELOPER Result [facility] Alejandro Shipman MD LAB BLOOD ORDERABLES Final R esult Performing Organization Address City/State/[facility] Co de Phone Number [facility] Department [place] [address] * (ABNORMAL) Ferritin (10/02/2024 2:16 PM BACK END WEB DEVELOPER) Ferritin 195(H) 13 - 150 ng/mL Blood 10/02/2024 2:16 PM BACK END WEB DEVELOPER 10/02/2024 2:48 PM BACK END WEB DEVELOPER us Alejandro Shipman MD LAB BLOOD ORDERABLES Final R esult Performing Organization Address [facility] de Phone Number [facility] Department [place] [address] * Lipid panel (10/02/2024 2:16 PM BACK END WEB DEVELOPER) Cholesterol 130 30 - 199 mg/dL Comment: Interpretive Data Ages < or = 19 years Acceptable: <170 mg/dL Borderline high: 170-199 mg/dL High: >or= 200 mg/dL Ages > or = 20 years Desirable: <200 mg/dL Borderline high: 200-239 mg/dL High: >or= 240 mg/dL Literature References: 1. Expert Panel on Integrated Guidelines for Cardiovascular Health and Risk Reduction in Children and Adolescents. Pediatrics 2011;128:S213 2. NCEP Expert Panel. Circulation 2004;110:227 Current Interpretive Data was last revised on 2018. Triglycerides 73 <=149 mg/dL [facility] Comment: Interpretive Data Ages < or = 9 years Acceptable: <75 mg/dL Borderline high: 75-99 mg/dL High: >or= 100 mg/dL Ages 10 to 20 years Acceptable: <90 mg/dL Borderline high: 90-129 mg/dL High: >or= 130 mg/dL Ages > or = 20 years Desirable: <150 mg/dL Borderline high: 150-199 mg/dL High: 200-499 mg/dL Very high: >or= 499 mg/dL Literature References: 1. Expert Panel on Integrated Guidelines for Cardiovascular Health and Risk Reduction in Children and Adolescents. Pediatrics 2011;128:S213 2. NCEP Expert Panel. Circulation 2004;110:227 Current Interpretive Data was last revised on 2018. HDL 50 >=40 mg/dL [facility] Comment: Interpretive Data Ages < or = 19 years Acceptable: >45 mg/dL Borderline low: 40-45 mg/dL Low: <40 mg/dL Ages > or = 20 years Desirable: >or= 60 mg/dL Low: <40 mg/dL Literature References: 1. Expert Panel on Integrated Guidelines for Cardiovascular Health and Risk Reduction in Children and Adolescents. Pediatrics 2011;128:S213 2. NCEP Expert Panel. Circulation 2004;110:227 Current Interpretive Data was last revised on 2018. LDL, calculated 65 <=129 mg/dL [facility] Comment: Interpretive Data Ages < or = 19 years Acceptable: <110 mg/dL Borderline high: 110-129 mg/dL High: >or= 130 mg/dL Ages > or = 20 years Optimal: <100 mg/dL Near optimal: 100-129 mg/dL Borderline high: 130-159 mg/dL High: >160 mg/dL Calculated using the Tre LDL-C estimating equation. This equation was implemented on 2024. Prior to this date LDL-C was estimated using the Friedewald equation. Literature References: 1. Expert Panel on Integrated Guidelines for Cardiovascular Health and Risk Reduction in Children and Adolescents. Pediatrics 2011;128:S213 2. NCEP Expert Panel. Circulation 2004;110:227 3. Tre Carolina al. JALIL Cardiol. 2019December 11;5(5):540-548. doi: 10.1001/jamacardio.2020.0013 Current Interpretive Data was last revised on 2024. Non-HDL Cholesterol 80 mg/dL [facility] Comment: Interpretive Data Ages < or = 19 years Acceptable: <120 mg/dL Borderline high: 120-144 mg/dL High: >145 mg/dL Ages > or = 20 years When triglycerides are >200 mg/dL, Non-HDL cholesterol is a secondary target of therapy with treatment goals that are 30 mg/dL greater than the LDL cholesterol target. Literature References: 1. Expert Panel on Integrated Guidelines for Cardiovascular Health and Risk Reduction in Children and Adolescents. Pediatrics 2011;128:S213 2. NCEP Expert Panel. Circulation 2004;110:227 Current Interpretive Data was last revised on 2018. Chol/HDL ratio 3 [facility] Blood 10/02/2024 2:16 PM BACK END WEB DEVELOPER 10/02/2024 2:41 PM BACK END WEB DEVELOPER us Alejandro Shipman MD LAB BLOOD ORDERABLES Final R esult [facility] [place] [address] * (ABNORMAL) Comprehensive metabolic panel (10/02/2024 2:16 PM BACK END WEB DEVELOPER) Sodium 140 135 - 145 mmol/L Potassium, pl 4.8 3.3 - 4.9 mmol/L [facility] Chloride 105 97 - 110 mmol/L [facility] CO2 27 22 - 32 mmol/L [facility] Anion gap 8 2 - 15 mmol/L [facility] BUN 23 6 - 25 mg/dL [facility] Creatinine 1.59(H) 0.60 - 1.10 mg/dL [facility] Glucose 100 70 - 199 mg/dL [facility] Comment: Interpretive Data Fasting glucose >/= 126 mg/dl is diagnostic for diabetes. Fasting is defined as no caloric intake for at least 8 hours. Fasting glucose between 100 mg/dl to 125 mg/dl is diagnostic of prediabetes. In a patient with classic symptoms of hyperglycemia or hyperglycemic crisis, a random glucose >/= 200 mg/dl is diagnostic for diabetes. In the absence of unequivocal hyperglycemia, results should be confirmed by repeat testing. The classification and Diagnosis of Diabetes Diabetes Care 2021; 46: S19-S40. Current interpretive data was last revised 2022. Calcium 8.9 8.5 - 10.3 mg/dL [facility] Bilirubin, total 0.5 0.1 - 1.2 mg/dL [facility] Protein, pl 7.1 6.5 - 8.5 g/dL [facility] Albumin 4.2 3.5 - 5.0 g/dL [facility] Alk phos 102 40 - 130 Units/L [facility] ALT 21 7 - 45 Units/L [facility] AST 35 10 - 45 Units/L [facility] Comment:Hemolyzed; result ma y be falsely elevated Blood 10/02/2024 2:16 PM BACK END WEB DEVELOPER 10/02/2024 2:48 PM BACK END WEB DEVELOPER us Alejandro Shipman MD LAB BLOOD ORDERABLES Final R esult [facility] [place] [address] * COLONOSCOPY (03/10/2021 11:25 AM CDT) Anatomical Region Laterality Modality Other Narrative Procedure Note Rosy Valverde MD - 03/10/2021 11:25 AM CDT ENDOSCOPY LAB Patient Name: Diane Silva Procedure Date: 03/10/2021 11:25 AM Date of : 1945 Admit Type: Outpatient Age: 75 Gender: Female Attending MD: Rosy Valverde M.D. Room: [facility] ENDOSCOPY ROOM 01 Note Status: Finalized Procedure: [...] The scope was passed under direct vision.The [id number] was introduced through the anusand advanced to [...] business hours - Please call theNurse Coordinator: [phone] After hours, evening, nights, weekends and holidays- Please call the hospital still pump operator at and ask for the GI fellow qa automation architect. - . Attending Participation: I personally performed the entire procedure. Electronically Signed By: Rosy Valverde M.D. Rosy Valverde M.D. 03/10/2021 11:51:46 AM Number of Addenda: 0 Note Initiated On: 03/10/2021 11:25 AM Rosy Valverde MD ENDOSCOPY PROCEDURES Fin al Result * Hepatitis C antibody (08/23/2018 11:13 AM BACK END WEB DEVELOPER) Hep C Ab Nonreactive Nonreactive [facility] Comment: Interpretive Data Positive results should be confirmed by a molecular method. If positive, a second separately collected sample should be submitted for Hepatitis C Virus (HCV) RNA Detection and Quantitation by Real-Time Reverse Front Loader Residential Driver-PCR (RT-PCR). Current interpretive data was last revised on 2016. Blood specimen (specimen) 08/23/2018 11:13 AM BACK END WEB DEVELOPER 08/23/2018 2:46 PM BACK END WEB DEVELOPER Narrative [facility] - 08/24/2018 10:41 AM BACK END WEB DEVELOPER Lilian Garcia MD LAB MICROBIOLOGY - GENERAL OR DERABLES Edited Result - Final [facility] Department [place] [address] from Last 3 Months or Most Recently Relevant to Health Maintenance Insurance MEDICARE SOLUTIONS [facility] MEDICARE [facility] MEDICARE [employer] MEDICARE Advance Directives For more information, please contact: [phone] * Full Code (Latest Code Status on [...] 9:03 AM 09/22/2022 11:59 PM Care Teams Guidance And Control System Engineer Relationship Specialty Start Date End Date Tera Seals DO [address] [place] [address] PCP - General Family Medicine 05/05/22 Nl-Neuromuscle, [facility] - [address] [place] [address] Referring Physician Neurology 04/18/18 Ferny Kearns MD PhD [address] [place] [address] Referring Physician Cardiology 04/21/21
--- OUTSIDE RECORDS SUMMARY | 2024-10-04 08:30 | XMS_ITS | Encounter Summary ---
Author Organization [facility] Address [address] [place] [address] Phone Care Team Providers Care Front Office Administrator Name Role Phone Nl-Tawny Valdes - Unavailable Unavailab Ferny Harris MD PhD Unavailable [phone] Tera Seals DO Primary Care Provider Charu Galdamez [facility] Unavailable [phone] Encounter Details Date Type Department Care Team [...] attend chur ch or buddhism services? Never 01/28/2021 Do you belong to any clubs o r organizations such as hinduism groups, unions, fraternal or athletic groups, or [...] place to sleep or slept in a fdc (including now)? No 01/28/2021 Comments No Sex and Gender Information Value Date Recorded Sex Assigned at Not on file Legal Sex Female 6:53 AM IT SOFTWARE ENGINEER Gender Identity Not on file Sexual Orientation [...] documented as of this encounter Care Teams Front Office Administrator Relationship Specialty Start Date End Date Tera Seals DO [address] [place] [address] PCP - General Family Medicine 05/05/22 Nl-Neuromuscle, [facility] - [address] [place] [address] Referring Physician Neurology 04/18/18 Ferny Kearns MD PhD [address] [place] [address] Referring Physician Cardiology 04/21/21 Charu Galdamez, [facility] [address] [facility] [place] Mailstop [phone] [place] [address] [facility] Outpatient Floriculture Professor 01/24/23 02/20/23 documented as of this encounter
--- OUTSIDE RECORDS SUMMARY | 2024-10-04 08:30 | XMS_ITS | Clinical Summary ---
Author Organization [facility] Address [address] [place] [address] Care Team Providers Care Guest Relations Coordinator Name Role Phone Nl-Alishauscjaden Wusm - Unavailable Unavailab Ferny Harris MD PhD Unavailable [phone] Tera Seals DO Primary Care Provider Allergies Active Allergy Reactions Criticality Noted Date Comments Gluten Diarrhea Medium 06/15/2018 Metoprolol Hallucinations Medium 11/09/2022 Wheat Diarrhea Low 12/31/2012 Medications sertraline (ZOLOFT) 100 mg tablet Take 1 tablet (100 mg total) by mouth milk pickup driver before breakfast 0 Active atorvastatin (LIPITOR) 40 mg tablet Take 1 tablet (40 mg total) by mouth daily 90 tablet 3 2 Active MAGNESIUM ORAL Take 1,000 mg by mouth 2 (two) times a day Active VITAMIN A ORAL Take 1 tablet by mouth milk pickup driver before breakfast Active Farxiga 10 mg tablet [...] 1 tablet (137 mcg total) by mouth milk pickup driver before breakfast 4 Active ascorbic acid 500 [...] 023 Assessment & Plan (06/27/2024 3:47 PM PROPOSAL REVIEW ANALYST): If the patient is not able to [...] (09/24/2022): Added automatically from request for surgery [id number] Atrial fibrillation with RVR (CMS/HCC) Assessment & Plan (09/18/2022 1:45 PM PROPOSAL REVIEW ANALYST): A fib diagnosed 08/16/2022, previously on metop [...] recs Assessment & Plan (09/17/2022 9:57 AM PROPOSAL REVIEW ANALYST): A fib diagnosed 08/16/2022, previously on metop [...] recs Assessment & Plan (09/16/2022 10:20 AM PROPOSAL REVIEW ANALYST): A fib diagnosed 08/16/2022, previously on metop [...] recs Assessment & Plan (09/15/2022 9:09 AM PROPOSAL REVIEW ANALYST): A fib diagnosed 08/16/2022, previously on metop [...] recs Assessment & Plan (09/14/2022 11:08 AM PROPOSAL REVIEW ANALYST): A fib diagnosed 08/16/2022, previously on metop [...] recs Assessment & Plan (09/13/2022 3:07 PM PROPOSAL REVIEW ANALYST): A fib diagnosed 08/16/2022, previously on metop [...] (08/08/2022): Added automatically from request for surgery [id number] Anemia in other chronic diseases classified else where 02/15/2022 Depression 10/31/2021 Assessment & Plan (09/18/2022 1:45 PM PROPOSAL REVIEW ANALYST): Continue home sertraline, klonopin Assessment & Plan (09/17/2022 9:57 AM PROPOSAL REVIEW ANALYST): Continue home sertraline, klonopin Assessment & Plan (09/16/2022 10:20 AM PROPOSAL REVIEW ANALYST): Continue home sertraline, klonopin Assessment & Plan (09/15/2022 9:12 AM PROPOSAL REVIEW ANALYST): Continue home sertraline, klonopin Assessment & Plan (09/14/2022 11:08 AM PROPOSAL REVIEW ANALYST): Continue home sertraline, klonopin Assessment & Plan (09/13/2022 3:12 PM PROPOSAL REVIEW ANALYST): Continue home sertraline Assessment & Plan (11/01/2021 1:41 PM CDT): -Cont Clonazapam nightly and Sertraline 100 Assessment & Plan (10/31/2021 5:51 PM CDT): -Cont Clonazapam nightly and Sertraline 100 Coronary artery disease 08/18/2021 Overview (08/18/2021): Added automatically from request for surgery [id number] Assessment & Plan (12/13/2022 6:51 PM CDT): S/p LHC and PCI 08/2021: RCA and LCx, 10/2021: LAD and diagonal -Cont home Plavix 75, atorvastatin 40 + losartan 12.5 Assessment & Plan (09/18/2022 1:45 PM PROPOSAL REVIEW ANALYST): S/p PCI 3/22 - plavix and xarelto on hold for procedure - metop as above - continue statin Assessment & Plan (09/17/2022 9:57 AM PROPOSAL REVIEW ANALYST): S/p PCI 3/22 - plavix and xarelto on hold for procedure - metop as above - continue statin Assessment & Plan (09/16/2022 10:20 AM PROPOSAL REVIEW ANALYST): S/p PCI 3/22 - plavix and xarelto on hold for procedure - metop as above - continue statin Assessment & Plan (09/15/2022 9:12 AM PROPOSAL REVIEW ANALYST): S/p PCI 3/22 - plavix and xarelto on hold for procedure - metop as above - continue statin Assessment & Plan (09/14/2022 11:08 AM PROPOSAL REVIEW ANALYST): S/p PCI 3/22 - plavix and xarelto on hold for procedure - metop as above - continue statin Assessment & Plan (09/13/2022 3:08 PM PROPOSAL REVIEW ANALYST): S/p PCI 3/22 - plavix and xarelto [...] continue to monitor Chronic systolic heart failure ([facility]) 021 Overview (04/16/2021): Assessment & Plan (04/24/2024 [...] farixga Assessment & Plan (09/18/2022 1:45 PM PROPOSAL REVIEW ANALYST): EF 40%, 2/2 ischemic CM - taking [...] recs Assessment & Plan (09/17/2022 9:57 AM PROPOSAL REVIEW ANALYST): EF 40%, 2/2 ischemic CM - taking [...] recs Assessment & Plan (09/16/2022 10:20 AM PROPOSAL REVIEW ANALYST): EF 40%, 2/2 ischemic CM - taking [...] recs Assessment & Plan (09/15/2022 9:11 AM PROPOSAL REVIEW ANALYST): EF 40%, 2/2 ischemic CM - taking lasix as needed at home - BNP elevated on admission, not clinically volume overloaded on exam - s/p 1u pRBC 2/, will hold further IVF - s/p lasix IV 40mg x1 2/, will hold further diuresis at this time as pt appears euvolemic, Cr uptrending - repeat TTE w/ reduced EF, normal IVC - cards c/s- appreciate recs Assessment & Plan (09/14/2022 11:08 AM PROPOSAL REVIEW ANALYST): EF 40%, 2/2 ischemic CM - taking lasix as needed at home - BNP elevated on admission, not clinically volume overloaded on exam - s/p 1u pRBC 2, will hold further IVF - will give lasix IV 40mg x1 09/14 - repeat TTE - cards c/s- appreciate recs Assessment & Plan (09/13/2022 3:11 PM PROPOSAL REVIEW ANALYST): EF 40%, 2/2 ischemic CM - taking [...] 03/2020 - appears comfortable upon transfer to [facility], exam improved with IV diuresis [...] holding BB - NPO after midnight for [facility] today - strict I & O, daily [...] 03/2020 - appears comfortable upon transfer to [facility], exam improved with IV diuresis [...] 03/2020 - appears comfortable upon transfer to [facility], exam improved with IV diuresis [...] 03/2020 - appears comfortable upon transfer to [facility], warm and wet on exam [...] (02/17/2021): Added automatically from request for surgery [id number] Assessment & Plan (06/27/2024 3:48 PM PROPOSAL REVIEW ANALYST): Based on today's blood work she is [...] (02/17/2021): Added automatically from request for surgery [id number] Deep vein thrombosis (DVT) associated with COVID -19 09/13/2020 Assessment & Plan (09/18/2022 1:45 PM PROPOSAL REVIEW ANALYST): Hold home xarelto for procedure as above Assessment & Plan (09/17/2022 9:57 AM PROPOSAL REVIEW ANALYST): Hold home xarelto for procedure as above Assessment & Plan (09/16/2022 10:20 AM PROPOSAL REVIEW ANALYST): Hold home xarelto for procedure as above Assessment & Plan (09/15/2022 9:12 AM PROPOSAL REVIEW ANALYST): Hold home xarelto for procedure as above Assessment & Plan (09/14/2022 11:08 AM PROPOSAL REVIEW ANALYST): Hold home xarelto for procedure as above Assessment & Plan (09/13/2022 3:13 PM PROPOSAL REVIEW ANALYST): Hold home xarelto for procedure as above [...] 07/03/2020 Assessment & Plan (07/04/2020 11:44 AM PROPOSAL REVIEW ANALYST): CT C/A/P 07/02 showed extensive portal venous [...] dc. Will need outpatient heme f/u for terminal manager AC management. - Switched from Xarelto to Hep gtt - OSH CT not able to be uploaded to [employer], but viewable from disc. It was a non- con CT, no ascites noted then. - Liver US with Doppler 07/03 showing complete thrombosis of the main, right and left portal vein w/ portal venous gas and large volume ascites. - GI considering CT Angio for further evaluation, possibly Sunday Leukocytosis 07/03/2020 Assessment & Plan (07/04/2020 11:28 AM PROPOSAL REVIEW ANALYST): Unclear etiology, likely related to underlying GI [...] (04/29/2020): Added automatically from request for surgery [id number] Gastroesophageal reflux disease 02/11/2020 Overview (02/11/2020): Added automatically from request for surgery [id number] Assessment & Plan (06/27/2024 3:44 PM PROPOSAL REVIEW ANALYST): The patient will continue Protonix Assessment & [...] CBC Assessment & Plan (07/04/2020 11:33 AM PROPOSAL REVIEW ANALYST): - Cont PPI daily Assessment & Plan (07/03/2020 11:50 AM PROPOSAL REVIEW ANALYST): - Cont PPI daily Assessment & Plan (07/02/2020 1:59 PM PROPOSAL REVIEW ANALYST): - Cont PPI daily Assessment & Plan (07/01/2020 2:59 PM PROPOSAL REVIEW ANALYST): - Cont PPI daily Assessment & Plan (06/30/2020 2:10 PM PROPOSAL REVIEW ANALYST): - Cont PPI IV BID Assessment & Plan (06/29/2020 2:04 PM PROPOSAL REVIEW ANALYST): - Cont PPI IV BID Assessment & Plan (06/28/2020 2:09 PM PROPOSAL REVIEW ANALYST): - Cont PPI IV BID Assessment & Plan (06/27/2020 6:05 AM PROPOSAL REVIEW ANALYST): Currently starting pantoprazole 40 mg IV b.i.d. pending evaluation for GI bleed. Dysphagia 02/11/2020 Overview (02/11/2020): Added automatically from request for surgery [id number] Allergic rhinitis 08/11/2019 Periodic limb movement disorder 08/11/2019 Assessment & Plan (11/01/2021 1:40 PM CDT): -Cont home Ropinirole 0.5 Assessment & Plan (10/31/2021 5:44 PM CDT): -Cont home Ropinirole 0.5 Bronchiectasis without acute exacerbation 2018 Assessment & Plan (04/24/2024 10:12 PM CDT): Flutter valve use daily Start NAC She may benefit from vest therapy in the future Assessment & Plan (07/04/2020 11:33 AM PROPOSAL REVIEW ANALYST): History of bronchiectasis per imaging and mild [...] now Assessment & Plan (07/03/2020 12:53 PM PROPOSAL REVIEW ANALYST): History of bronchiectasis per imaging and mild [...] now Assessment & Plan (07/02/2020 2:00 PM PROPOSAL REVIEW ANALYST): History of bronchiectasis per imaging and mild obstructive pulmonary disease per PFTs with patient recently prescribed albuterol and Symbicort which she reports she does not take as she does not really have any pulmonary symptoms except for when she was recently hospitalized with COVID-19 - Continue to monitor for now Assessment & Plan (07/01/2020 3:00 PM PROPOSAL REVIEW ANALYST): History of bronchiectasis per imaging and mild obstructive pulmonary disease per PFTs with patient recently prescribed albuterol and Symbicort which she reports she does not take as she does not really have any pulmonary symptoms except for when she was recently hospitalized with COVID-19 - Continue to monitor for now Assessment & Plan (06/30/2020 2:10 PM PROPOSAL REVIEW ANALYST): History of bronchiectasis per imaging and mild obstructive pulmonary disease per PFTs with patient recently prescribed albuterol and Symbicort which she reports she does not take as she does not really have any pulmonary symptoms except for when she was recently hospitalized with COVID-19. - Continue to monitor for now Assessment & Plan (06/29/2020 2:04 PM PROPOSAL REVIEW ANALYST): History of bronchiectasis per imaging and mild obstructive pulmonary disease per PFTs with patient recently prescribed albuterol and Symbicort which she reports she does not take as she does not really have any pulmonary symptoms except for when she was recently hospitalized with COVID-19. - Continue to monitor for now Assessment & Plan (06/28/2020 2:09 PM PROPOSAL REVIEW ANALYST): History of bronchiectasis per imaging and mild obstructive pulmonary disease per PFTs with patient recently prescribed albuterol and Symbicort which she reports she does not take as she does not really have any pulmonary symptoms except for when she was recently hospitalized with COVID-19. - Continue to monitor for now Assessment & Plan (06/27/2020 6:03 AM PROPOSAL REVIEW ANALYST): History of bronchiectasis per imaging and mild [...] 07/10/2018 Assessment & Plan (08/15/2019 12:53 PM PROPOSAL REVIEW ANALYST): - 73 y.o. woman with balance problems [...] worsens Assessment & Plan (07/07/2019 11:49 AM PROPOSAL REVIEW ANALYST): - 73 y.o. 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 Although, pt and family report that patient has been strict with her diet. 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 - GI c/s for inpatient scopes as above Assessment & Plan (06/29/2020 2:03 PM PROPOSAL REVIEW ANALYST): Continue gluten and wheat free diet once allowed to eat pending planned procedures. - GI c/s for inpatient scopes as above Assessment & Plan (06/28/2020 2:07 PM PROPOSAL REVIEW ANALYST): Continue gluten and wheat free diet once allowed to eat pending planned procedures. - GI c/s for inpatient scopes as above Assessment & Plan (06/27/2020 6:03 AM PROPOSAL REVIEW ANALYST): Continue gluten and wheat free diet once allowed to eat pending planned procedures. 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 -I d/w GI biliary - plan for EUS-guided biopsy today Assessment & Plan (06/17/2018 12:43 PM PROPOSAL REVIEW ANALYST): -seen on OSH chest CT after review by our radiologists. They recommend standard protocol C/A/P CT with contrast to better evaluate -add on LDH Pericardial effusion 06/15/2018 Assessment & Plan (06/27/2020 6:07 AM PROPOSAL REVIEW ANALYST): History of duodenal ulcer. Continue PPI as above. Assessment & Plan (06/18/2018 10:11 AM PROPOSAL REVIEW ANALYST): -reported large pericardial effusion, but only small here on echo and on review of OSH CT -possibly related to mediastinal mass Assessment & Plan (06/17/2018 12:49 PM PROPOSAL REVIEW ANALYST): -reported large pericardial effusion, but only small here on echo and on review of OSH CT -possibly related to mediastinal mass -further imaging as above. Assessment & Plan (06/16/2018 11:08 AM PROPOSAL REVIEW ANALYST): Transferred from OSH with c/f new pericardial [...] 05/18/2018 Assessment & Plan (07/04/2020 11:30 AM PROPOSAL REVIEW ANALYST): History of RA, PMR and fibromyalgia followed by rheumatology Dr. Robertson and managed with methotrexate. Patient reports being out of methotrexate for 2 weeks and being unable to contact her heel seat sander during this period of time. - Cont holding methotrexate, may resume at [place] Assessment & Plan (07/03/2020 11:14 AM PROPOSAL REVIEW ANALYST): History of RA, PMR and fibromyalgia followed by rheumatology Dr. Robertson and managed with methotrexate. Patient reports being out of methotrexate for 2 weeks and being unable to contact her heel seat sander during this period of time. - Cont holding methotrexate in setting of ALEXANDRA, may resume at [place] Assessment & Plan (07/02/2020 1:59 PM PROPOSAL REVIEW ANALYST): History of RA, PMR and fibromyalgia followed by rheumatology Dr. Robertson and managed with methotrexate. Patient reports being out of methotrexate for 2 weeks and being unable to contact her heel seat sander during this period of time. - Cont holding methotrexate in setting of ALEXANDRA, may resume at [place] Assessment & Plan (07/01/2020 2:58 PM PROPOSAL REVIEW ANALYST): History of RA, PMR and fibromyalgia followed by rheumatology Dr. Robertson and managed with methotrexate. Patient reports being out of methotrexate for 2 weeks and being unable to contact her heel seat sander during this period of time. - Cont holding methotrexate in setting of ALEXANDRA, may resume at dc Assessment & Plan (06/30/2020 2:09 PM PROPOSAL REVIEW ANALYST): History of RA, PMR and fibromyalgia followed by rheumatology Dr. Robertson and managed with methotrexate. Patient reports being out of methotrexate for 2 weeks and being unable to contact her heel seat sander during this period of time. - Cont holding methotrexate in setting of ALEXANDRA - Touch base with Rheumatology regarding refills Assessment & Plan (06/29/2020 2:03 PM PROPOSAL REVIEW ANALYST): History of RA, PMR and fibromyalgia followed by rheumatology Dr. Robertson and managed with methotrexate. Patient reports being out of methotrexate for 2 weeks and being unable to contact her heel seat sander during this period of time. - Cont holding methotrexate in setting of ALEXANDRA -Touch base with Rheumatology regarding refills Assessment & Plan (06/28/2020 1:58 PM PROPOSAL REVIEW ANALYST): History of RA, PMR and fibromyalgia followed by rheumatology Dr. Robertson and managed with methotrexate. Patient reports being out of methotrexate for 2 weeks and being unable to contact her heel seat sander during this period of time. - Cont holding methotrexate in setting of ALEXANDRA -Touch base with Rheumatology regarding refills Assessment & Plan (06/27/2020 6:08 AM PROPOSAL REVIEW ANALYST): History of RA, PMR and fibromyalgia followed by rheumatology Dr. Robertson and managed with methotrexate. Patient reports being at a methotrexate for 2 weeks and being unable to contact her heel seat sander during this period of time. -given acute renal failure reported by the patient at the outside hospital, it may have actually been beneficial that she was not taking methotrexate during this time. -follow admission creatinine, continue holding methotrexate for now -touch base with Rheumatology regarding refills Assessment & Plan (06/18/2018 10:09 AM PROPOSAL REVIEW ANALYST): -Serologic workup for underlying rheumatic disease unremarkable. No active synovitis on exam. -Largely resolved. Assessment & Plan (06/17/2018 12:45 PM PROPOSAL REVIEW ANALYST): -Serologic workup for underlying rheumatic disease unremarkable. No active synovitis on exam. Assessment & Plan (06/16/2018 11:12 AM PROPOSAL REVIEW ANALYST): Noted joint pains, diffusely, mainly left shoulder. [...] 8 Assessment & Plan (07/07/2020 4:12 PM PROPOSAL REVIEW ANALYST): Hx chronic diarrhea, possible celiac, initially bloody, [...] PRN. Assessment & Plan (07/04/2020 11:25 AM PROPOSAL REVIEW ANALYST): Hx of chronic diarrhea in setting of [...] <7 Assessment & Plan (07/03/2020 12:57 PM PROPOSAL REVIEW ANALYST): Hx of chronic diarrhea in setting of [...] <7 Assessment & Plan (07/02/2020 2:05 PM PROPOSAL REVIEW ANALYST): Hx of chronic diarrhea in setting of [...] recs Assessment & Plan (07/01/2020 3:08 PM PROPOSAL REVIEW ANALYST): Hx of chronic diarrhea in setting of [...] recs Assessment & Plan (06/30/2020 2:13 PM PROPOSAL REVIEW ANALYST): Hx of chronic diarrhea in setting of [...] EGD/C-scope Assessment & Plan (06/29/2020 1:59 PM PROPOSAL REVIEW ANALYST): Hx of chronic diarrhea in setting of [...] signed Assessment & Plan (06/28/2020 2:14 PM PROPOSAL REVIEW ANALYST): Hx of chronic diarrhea in setting of [...] signed Assessment & Plan (06/27/2020 6:14 AM PROPOSAL REVIEW ANALYST): Patient with chronic diarrhea in setting of [...] signed Assessment & Plan (06/18/2018 10:10 AM PROPOSAL REVIEW ANALYST): Resolved with gluten-free diet, although biopsies weren't consistent with celiac Assessment & Plan (06/17/2018 12:45 PM PROPOSAL REVIEW ANALYST): Resolved with gluten-free diet Assessment & Plan (06/16/2018 11:00 AM PROPOSAL REVIEW ANALYST): Resolved. Assessment & Plan (06/15/2018 5:37 AM [...] 05/17/2018 Assessment & Plan (06/18/2018 10:10 AM PROPOSAL REVIEW ANALYST): -cont therapeutic Lovenox (holding dose for procedure today) Assessment & Plan (06/17/2018 12:47 PM PROPOSAL REVIEW ANALYST): -cont therapeutic Lovenox Assessment & Plan (06/15/2018 [...] oxybutynin Assessment & Plan (07/04/2020 11:29 AM PROPOSAL REVIEW ANALYST): - Cont oxybutynin Assessment & Plan (07/03/2020 11:14 AM PROPOSAL REVIEW ANALYST): - Cont oxybutynin Assessment & Plan (07/02/2020 1:59 PM PROPOSAL REVIEW ANALYST): - Cont oxybutynin Assessment & Plan (07/01/2020 2:58 PM PROPOSAL REVIEW ANALYST): - Cont oxybutynin Assessment & Plan (06/30/2020 2:10 PM PROPOSAL REVIEW ANALYST): - Cont oxybutynin - Cr now improving, maykel shaffer'd Assessment & Plan (06/29/2020 2:03 PM PROPOSAL REVIEW ANALYST): - Cont oxybutynin - Cr now improving, maykel shaffer'd Assessment & Plan (06/28/2020 2:00 PM PROPOSAL REVIEW ANALYST): - Cont oxybutynin - Cr now improving, will dc brar and do a void trial Assessment & Plan (06/27/2020 6:07 AM PROPOSAL REVIEW ANALYST): Resume oxybutynin. Currently with Brar in place. Pending creatinine will remove Brar and attempt voiding trial. Assessment & Plan (05/17/2018 2:16 AM CDT): Continue home Mybretriq Hypothyroidism 05/17/2016 Assessment & Plan (12/13/2022 6:48 PM CDT): -Cont home Synthroid 137 Assessment & Plan (09/18/2022 1:45 PM PROPOSAL REVIEW ANALYST): Continue home synthroid - check TSH given RVR- wnl Assessment & Plan (09/17/2022 9:58 AM PROPOSAL REVIEW ANALYST): Continue home synthroid - check TSH given RVR- wnl Assessment & Plan (09/16/2022 10:21 AM PROPOSAL REVIEW ANALYST): Continue home synthroid - check TSH given RVR- wnl Assessment & Plan (09/15/2022 9:12 AM PROPOSAL REVIEW ANALYST): Continue home synthroid - check TSH given RVR- wnl Assessment & Plan (09/14/2022 11:09 AM PROPOSAL REVIEW ANALYST): Continue home synthroid - check TSH given RVR- wnl Assessment & Plan (09/13/2022 3:10 PM PROPOSAL REVIEW ANALYST): Continue home synthroid - check TSH given [...] now Assessment & Plan (07/04/2020 11:29 AM PROPOSAL REVIEW ANALYST): - TSH 2.16, continue home Synthroid Assessment & Plan (07/03/2020 11:13 AM PROPOSAL REVIEW ANALYST): - TSH 2.16, continue home Synthroid Assessment & Plan (07/02/2020 1:59 PM PROPOSAL REVIEW ANALYST): - TSH 2.16, continue home Synthroid Assessment & Plan (07/01/2020 2:59 PM PROPOSAL REVIEW ANALYST): - TSH 2.16, continue home Synthroid Assessment & Plan (06/30/2020 2:10 PM PROPOSAL REVIEW ANALYST): - TSH 2.16, continue home Synthroid Assessment & Plan (06/29/2020 2:03 PM PROPOSAL REVIEW ANALYST): - TSH 2.16, continue home Synthroid Assessment & Plan (06/28/2020 1:57 PM PROPOSAL REVIEW ANALYST): - TSH 2.16, continue home Synthroid Assessment & Plan (06/27/2020 6:06 AM PROPOSAL REVIEW ANALYST): Add on TSH, continue home Synthroid. Assessment & Plan (06/18/2018 10:10 AM PROPOSAL REVIEW ANALYST): -cont levothyroxine Assessment & Plan (06/17/2018 12:47 PM PROPOSAL REVIEW ANALYST): -cont levothyroxine Assessment & Plan (06/16/2018 11:03 AM PROPOSAL REVIEW ANALYST): Checked TSH and progressive elevation to 9.10 [...] protocol Assessment & Plan (06/18/2018 10:09 AM PROPOSAL REVIEW ANALYST): Continue home nocturnal CPAP at 9 Assessment & Plan (06/17/2018 12:45 PM PROPOSAL REVIEW ANALYST): Continue home CPAP at 9. Compliant with CPAP as inpatient. Assessment & Plan (06/16/2018 11:03 AM PROPOSAL REVIEW ANALYST): Continue home CPAP at 9. Compliant with [...] above Assessment & Plan (07/04/2020 11:29 AM PROPOSAL REVIEW ANALYST): - Hold losartan in setting of ALEXANDRA, normotensive, may resume at dc Assessment & Plan (07/03/2020 11:13 AM PROPOSAL REVIEW ANALYST): - Hold losartan in setting of ALEXANDRA, normotensive, may resume at dc Assessment & Plan (07/02/2020 1:59 PM PROPOSAL REVIEW ANALYST): - Hold losartan in setting of ALEXANDRA, may resume at dc Assessment & Plan (07/01/2020 2:59 PM PROPOSAL REVIEW ANALYST): - Hold losartan in setting of ALEXANDRA, may resume at dc Assessment & Plan (06/30/2020 2:10 PM PROPOSAL REVIEW ANALYST): - Hold losartan in setting of ALEXANDRA Assessment & Plan (06/29/2020 2:03 PM PROPOSAL REVIEW ANALYST): - Hold losartan in setting of ALEXANDRA Assessment & Plan (06/28/2020 1:56 PM PROPOSAL REVIEW ANALYST): - Holding losartan in setting of ALEXANDRA Assessment & Plan (06/27/2020 6:06 AM PROPOSAL REVIEW ANALYST): Holding losartan 25 mg daily given reported [...] (07/06/2020): Assessment & Plan (07/07/2020 4:10 PM PROPOSAL REVIEW ANALYST): Portal and mesenteric vein thrombi seen on [...] 022 Assessment & Plan (07/07/2020 4:13 PM PROPOSAL REVIEW ANALYST): Improving delirium. 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 With some somnolence 07/05. Improved after holding home klonopin. Also holding ropinirole. Developed some mild withdrawal tremors with holding klonopin so resumed today and will recommend to taper on outpatient basis given propensity for delirium. Assessment & Plan (07/04/2020 11:27 AM PROPOSAL REVIEW ANALYST): Appeare confused/lethargic over the last few days, [...] Delirium and fall precautions - Hold some DAIRY NUTRITION CONSULTANT affecting meds Assessment & Plan (07/03/2020 12:52 PM PROPOSAL REVIEW ANALYST): Appears confused/lethargic over the last few days, [...] and fall precautions - Will hold some DAIRY NUTRITION CONSULTANT affecting meds Assessment & Plan (07/02/2020 2:08 PM PROPOSAL REVIEW ANALYST): Appears confused over the last few days, [...] precautions Assessment & Plan (07/01/2020 3:24 PM PROPOSAL REVIEW ANALYST): Appeared confused yesterday and today, daughter reports [...] 10/31/2021 Assessment & Plan (07/04/2020 11:33 AM PROPOSAL REVIEW ANALYST): - Recovered - diagnosed 05/23, repeat covid Ag testing negative Assessment & Plan (07/03/2020 12:12 PM PROPOSAL REVIEW ANALYST): - Recovered - diagnosed 05/22, repeat covid Ag testing negative Assessment & Plan (07/02/2020 1:59 PM PROPOSAL REVIEW ANALYST): - Recovered - diagnosed 05/22, repeat covid Ag testing negative Assessment & Plan (07/01/2020 2:59 PM PROPOSAL REVIEW ANALYST): - Recovered - diagnosed 05/22, repeat covid Ag testing negative Assessment & Plan (06/30/2020 2:10 PM PROPOSAL REVIEW ANALYST): Recovered - diagnosed 05/22, repeat covid Ag testing negative Assessment & Plan (06/29/2020 2:06 PM PROPOSAL REVIEW ANALYST): Recovered - diagnosed 05/22, repeat covid Ag testing negative Assessment & Plan (06/28/2020 2:10 PM PROPOSAL REVIEW ANALYST): History of COVID-19 infection initially diagnosed in May 22, 2020 at an OSH. Labs not currently available for review. Patient required hospitalization for decreased saturations although is now recovered. - Repeat COVID swab negative here Assessment & Plan (06/27/2020 6:18 AM PROPOSAL REVIEW ANALYST): History of COVID-19 infection initially diagnosed in [...] 10/31/2021 Assessment & Plan (07/06/2020 3:49 PM PROPOSAL REVIEW ANALYST): Urine culture with pansensitive E coli at OSH. S/p 5 days of abx at OSH and 5d CTX here. Assessment & Plan (07/04/2020 11:29 AM PROPOSAL REVIEW ANALYST): Urine culture with pansensitive E coli at OSH. Unclear what antibiotic she was receiving although presumably she had received 5 days of it. - Repeat UA 2+ LE, 11-20 wbc 3+ yeast - Urine cx no growth, no urinary symptoms - Completed 5 days of CTX here Assessment & Plan (07/03/2020 11:13 AM PROPOSAL REVIEW ANALYST): Urine culture with pansensitive E coli at OSH. Unclear what antibiotic she was receiving although presumably she has received 5 days of it. - Repeat UA 2+ LE, 11-20 wbc 3+ yeast - no urinary symptoms - Urine cx no growth - Completed 5 days of CTX here on 07/01 Assessment & Plan (07/02/2020 1:58 PM PROPOSAL REVIEW ANALYST): Urine culture with pansensitive E coli at OSH. Unclear what antibiotic she was receiving although presumably she has received 5 days of it. - Repeat UA 2+ LE, 11-20 wbc 3+ yeast - no urinary symptoms - Urine cx no growth - Completed 5 days of CTX here on 07/01 Assessment & Plan (07/01/2020 2:58 PM PROPOSAL REVIEW ANALYST): Urine culture with pansensitive E coli at OSH. Unclear what antibiotic she was receiving although presumably she has received 5 days of it. - Repeat UA 2+ LE, 11-20 wbc 3+ yeast - no urinary symptoms - Urine cx no growth - Continue CTX Assessment & Plan (06/30/2020 2:09 PM PROPOSAL REVIEW ANALYST): Urine culture with pansensitive E coli. Unclear what antibiotic she was receiving although presumably she has received 5 days of it. - Repeat UA 2+ LE, 11-20 wbc 3+ yeast - no urinary symptoms - Urine cx no growth - Continue CTX for now Assessment & Plan (06/29/2020 2:03 PM PROPOSAL REVIEW ANALYST): Urine culture with pansensitive E coli. Unclear what antibiotic she was receiving although presumably she has received 5 days of it. - Repeat UA 2+ LE, 11-20 wbc 3+ yeast - no urinary symptoms - Urine cx no growth - Continues to have rising leukocytosis, will resume CTX and CTM Assessment & Plan (06/28/2020 2:13 PM PROPOSAL REVIEW ANALYST): Urine culture with pansensitive E coli. Unclear what antibiotic she was receiving although presumably she has received 5 days of it. - Repeat UA 2+ LE, 07-02 wbc 3+ yeast - no urinary symptoms - Urine cx no growth - Dc empiric CTX Assessment & Plan (06/27/2020 6:14 AM PROPOSAL REVIEW ANALYST): Urine culture with pansensitive E coli. Unclear what antibiotic she was receiving although presumably she has received 5 days of it. Will repeat UA and decide on re-initiation of antibiotics at that point. Fatigue 08/11/2019 10/31/2021 VTE (venous thromboembolism) 05/22/2019 10/31/2021 Assessment & Plan (07/04/2020 11:32 AM PROPOSAL REVIEW ANALYST): History of unprovoked PE and lower extremity [...] gtt. Assessment & Plan (07/03/2020 12:52 PM PROPOSAL REVIEW ANALYST): History of unprovoked PE and lower extremity [...] 07/02 Assessment & Plan (07/02/2020 1:58 PM PROPOSAL REVIEW ANALYST): History of unprovoked PE and lower extremity [...] EGD/C-scope Assessment & Plan (07/01/2020 2:57 PM PROPOSAL REVIEW ANALYST): History of unprovoked PE and lower extremity [...] EGD/C-scope Assessment & Plan (06/30/2020 2:08 PM PROPOSAL REVIEW ANALYST): History of unprovoked PE and lower extremity [...] hold Assessment & Plan (06/29/2020 2:04 PM PROPOSAL REVIEW ANALYST): History of unprovoked PE and lower extremity [...] hold Assessment & Plan (06/28/2020 2:08 PM PROPOSAL REVIEW ANALYST): History of unprovoked PE and lower extremity [...] hold Assessment & Plan (06/27/2020 6:05 AM PROPOSAL REVIEW ANALYST): History of unprovoked PE and lower extremity [...] 06/18/2018 Assessment & Plan (06/16/2018 10:57 AM PROPOSAL REVIEW ANALYST): Resolving sepsis due to PNA. Febrile and [...] 07/30/2018 Assessment & Plan (07/07/2019 11:41 AM PROPOSAL REVIEW ANALYST): 2 Elevated INR 05/20/2018 05/21/2018 Assessment & [...] Date Type Department Care Team Description 10/02/2024 2:45 PM PROPOSAL REVIEW ANALYST Office Visit [facility] 6 [place] [address] Alejandro Shipman MD Iron deficiency anemia, unspecified iron deficiency anemia type (Primary Dx) 10/02/2024 2:15 PM PROPOSAL REVIEW ANALYST Lab [facility] [address] [place] [address] 6 [place] [address] Arrived 10/02/2024 2:00 PM PROPOSAL REVIEW ANALYST Lab [facility] - Lab Collection [address] [place] [address] 6 [place] [address] Celiac disease; Routine health maintenance; Deep vein thrombosis (DVT) associated with COVID-19; Portal vein thrombosis; Chronic anemia 09/29/2024 Orders Only [facility] [address] [place] [address] [place] [address] [place] [address] Imani Villalobos RN Celiac disease (Primary Dx); Routine health maintenance 08/20/2024 Telephone [facility] [address] [place] [address] [place] [address] [place] [address] Earline Cartwright, Levi 08/01/2024 1:00 PM PROPOSAL REVIEW ANALYST Infusion [facility] 10 [place] [address] Iron deficiency anemia, unspecified iron deficiency anemia type (Primary Dx) 08/01/2024 Orders Only [facility] On license of [facility] [address] [place] [address] [place] [address] Imani Villalobos, RN 07/30/2024 2:00 PM PROPOSAL REVIEW ANALYST Office Visit [facility] [address] [facility] 2[address] [place] [address] Nikki Manzanares NP Hyperuricemia (Primary Dx) 07/24/2024 Documentation [facility] 1 [place] [address] Louise Mayo BS 07/17/2024 Telephone [facility] [address] [facility] Floor 6 [place] [address] Charley Meredith RN 07/16/2024 2:30 PM PROPOSAL REVIEW ANALYST Infusion [facility] - Infusion [address] [facility] Floor 6 [place] [address] Iron deficiency anemia, unspecified iron deficiency anemia type (Primary Dx) 07/15/2024 1:15 PM PROPOSAL REVIEW ANALYST Office Visit [facility] [address] [facility] 8th [place] [address] [place] [address] Ferny Kearns MD PhD Chronic systolic heart failure (CMS/HCC) ([facility]) (Primary Dx); Hypertension, unspecified type; Hyperlipidemia, unspecified hyperlipidemia type; Atrial fibrillation with RVR (CMS/HCC) (HCC) 07/07/2024 Orders Only [facility] 6 [place] [address] Alejandro Shipman MD Iron deficiency anemia, unspecified iron deficiency anemia type (Primary Dx) 07/07/2024 Orders Only [facility] Floor 6 [place] [address] Alejandro Shipman MD Iron deficiency anemia, unspecified iron deficiency anemia type (Primary Dx) from Last 3 Months Immunizations Immunization Administration Dates Next Due Influenza, Quad, Adjuvantate d, Intramuscular 05/10/2020 Influenza, Quadrivalent, Hig h Dose, Preservative Free, Intrr 10/31/2021 Influenza, Quadrivalent, Spl it, Intramuscular 05/10/2020,05/15/2019,05/28/2018 Influenza, Unspecified 04/13/2022,04/13/2020,10/2018 Pneumococcal Conjugate PCV 13 06/29/2016 Pneumococcal Polysaccharide PPV23 07/31/2017 Surgical History Surgery Date Site/Laterality Comments [place] TONSILLECTOMY PRIMARY/SECONDARY <AGE 13 APPENDECTOMY OSTEOCHONDROMA EXCISION Right leg SHOULDER SURGERY 08/13/2010 - 08/12/2011 Left Frozen shoulder release/manipulation AUGMENTATION MAMMOPLASTY SECTION x2 CORONARY ANGIOPLASTY WITH STENT PLACEMENT 07/2021, 08/2021, 10/2021 COLONOSCOPY Medical History Medical History Date Comments Celiac disease Sleep apnea Chronic diarrhea Hypothyroidism Chronic kidney disease Memory loss Stroke ([facility]) 2017 per imaging Renal insufficiency Pneumonia 05/2019 DVT (deep venous thrombosis) ([facility]) ([facility]) 201 8 PE ERIKA positive COVID-19 virus detected 05/23/2020 E-coli UTI 01/26/2021 Status post placement of implantable loop record er 2012 Hypertension Coronary artery disease CHF (congestive heart failure) ([facility]) ([facility]) Anemia persistent Portal vein thrombosis 2020 A-fib ([facility]) ([facility]) 08/16/2022 Anxiety Hyperlipidemia History of blood [...] How often do you attend chur or denominational services? Never 01/24/2023 Do you belong to any clubs o r organizations such as roman catholic groups, unions, fraternal or athletic groups, or [...] place to sleep or slept in a halfway (including now)? No 01/24/2023 Personal Safety Answer Date Recorded Have you ever been in or are you currently in a harmful physical or emotional relationship or is someone making you feel afraid or unsafe? Denies 01/16/2023 Comments No Sex and Gender Information Value Date Recorded Sex Assigned at Not on file Legal Sex Female 6:53 AM PROPOSAL REVIEW ANALYST Gender Identity Not on file Sexual Orientation Not on file Obstetrics History Last Filed Vital Signs Vital Sign Reading Time Taken Comments Blood Pressure 116/71 10/02/2024 2:37 PM PROPOSAL REVIEW ANALYST Pulse 69 10/02/2024 2:37 PM PROPOSAL REVIEW ANALYST Temperature 36.4 C (97.6 F) 10/02/2024 2:37 PM PROPOSAL REVIEW ANALYST Respiratory Rate 18 10/02/2024 2:37 PM PROPOSAL REVIEW ANALYST Oxygen Saturation 96% 10/02/2024 2:37 PM PROPOSAL REVIEW ANALYST Inhaled Oxygen Concentration - - Weight 76.7 kg (169 lb) 10/02/2024 2:37 PM PROPOSAL REVIEW ANALYST Height 175.3 cm (5' 9 ) 07/30/2024 2:01 PM PROPOSAL REVIEW ANALYST Body Mass Index 24.96 07/30/2024 2:01 PM PROPOSAL REVIEW ANALYST Plan of Treatment Health Maintenance Due Date [...] 12/16/2020, 12/02/2019 Medical Devices Implanted Type Area Cavalry Scout Device Identifier Shelf Expiration Date Model / Serial / Lot [employer] Vascade Mvp 6-12fr Venous Closure [id number] - [id number] - [id number] Implanted:Qty: 1 on 12/13/2022 by Yohan Carpenter MD at [facility] Collagen Right: Femoral Vein [employer] 09/12/2024 800-612C- 10U / [id number] / [id number] [employer] Vascade Mvp 6-12fr Venous Closure [id number] - [id number] - [id number] Implanted:Qty: 1 on 12/13/2022 by Yohan Carpenter MD at [facility] Collagen Left: Femoral Vein [employer] 09/12/2024 800-612C- 10U / [id number] 09B / [id number] [id number] [employer] Vascade Mvp 6-12fr Venous Closure [id number] - [id number] - [id number] Implanted:Qty: 1 on 12/13/2022 by Yohan Carpenter MD at [facility] Collagen Left: Femoral Vein [employer] 09/12/2024 800-612C- 10U / [id number] 09B / [id number] 09B [employer] Device Closure Vascade Od5 Fr Femoral Artery [id number] - [id number] - [id number] Implanted:Qty: 1 on 12/13/2022 by Yohan Carpenter MD at [facility] Collagen Right: Femoral Vein [employer] 09/04/2024 700-500DX -05U / [id number] / Med[employer] X [id number] Resolute [place] 3.5mm 2.1-2.7fr 18mm 140cm Rapid Exchange - [id number] Implanted:Qty: 1 on 08/18/2021 by Hero Hernandez MD at [facility] Stent Medtronic Inc 06/10/2024 [id number] / / [id number] [employer] Inc [id number] Stent Coronary De Rx Cocr Ors Msn 2.5x35mm - [id number] Implanted:Qty: 1 on 08/18/2021 by Hero Hernandez MD at [facility] Stent [employer] Inc 02/28/2023 [id number] / / [id number] [employer] [place] [id number] Synergy Xd Monorail 2.75mm 32mm 144cm Delivery System 1 Access - [id number] Implanted:Qty: 1 on 10/31/2021 by Hero Hernandez MD at [facility] Stent [employer] 11/18/2022 [id number] / / [id number] [employer] [id number] Synergy Xd Monorail 3mm 16mm 144cm Delivery System 1 Access Port - [id number] Implanted:Qty: 1 on 10/31/2021 by Hero Hernandez MD at [facility] Stent [employer] 01/19/2023 [id number] / / [id number] [employer] [id number] Synergy Xd Monorail 2.25mm 12mm 144cm Delivery System 1 Access - [id number] Implanted:Qty: 1 on 10/31/2021 by Hero Hernandez MD at [facility] Stent [employer] 06/08/2023 [id number] / / [id number] [employer] [id number] Synergy Xd Monorail 2.25mm 16mm 144cm Delivery System 1 Access - [id number] Implanted:Qty: 1 on 10/31/2021 by Hero Hernandez MD at [facility] Stent [employer] 12/14/2022 [id number] / / [id number] Bilateral: Breast Explanted Type Area Cavalry Scout Device Identifier Shelf Expiration Date Model / Serial / Lot Implantable Loop Recorder-07/09 Implanted:06/14 (Quantity not on file) Explanted:03/13 (Quantity not on file) Implantable Loop Recorder N/A: Heart [employer] / / Procedures Procedure Name Priority Date/Time Associated Diagnosis Comments T3, FREE Routine 10/02/2024 2:16 PM PROPOSAL REVIEW ANALYST EGFR Routine 10/02/2024 2:16 PM PROPOSAL REVIEW ANALYST Deep vein thrombosis (DVT) associated with COVID-19 Portal vein thrombosis Chronic anemia T4, FREE Routine 10/02/2024 2:16 PM PROPOSAL REVIEW ANALYST HEMOGLOBIN A1C Routine 10/02/2024 2:16 PM PROPOSAL REVIEW ANALYST LIPID PANEL Routine 10/02/2024 2:16 PM PROPOSAL REVIEW ANALYST THYROID FUNCTION CASCADE Routine 10/02/2024 2:16 PM PROPOSAL REVIEW ANALYST DIFFERENTIAL AUTO Routine 10/02/2024 2:1 6 PM PROPOSAL REVIEW ANALYST Deep vein thrombosis (DVT) associated with COVID-19 Portal vein thrombosis Chronic anemia CBC WITH AUTO DIFFERENTIAL Routine 10/02/2024 2:16 PM PROPOSAL REVIEW ANALYST Deep vein thrombosis (DVT) associated with COVID-19 Portal vein thrombosis Chronic anemia IRON PROFILE W/ IBC Routine 10/02/2024 2 :16 PM PROPOSAL REVIEW ANALYST Deep vein thrombosis (DVT) associated with COVID-19 Portal vein thrombosis Chronic anemia FERRITIN Routine 10/02/2024 2:16 PM PROPOSAL REVIEW ANALYST Deep vein thrombosis (DVT) associated with COVID-19 Portal vein thrombosis Chronic anemia COMPREHENSIVE METABOLIC PANEL Routine 10/02/2024 2:16 PM PROPOSAL REVIEW ANALYST Deep vein thrombosis (DVT) associated with COVID-19 Portal vein thrombosis Chronic anemia COLONOSCOPY 03/10/2021 11:25 AM CDT HEPATITIS C ANTIBODY Routine 08/23/2018 11:13 AM PROPOSAL REVIEW ANALYST Eosinophilia from Last 3 Months or Most Recently Relevant to Health Maintenance Results * (ABNORMAL) eGFR (10/02/2024 2:16 PM PROPOSAL REVIEW ANALYST) Pathologist [facility] eGFR 33(L) >=60 mL/min/1. 73 m2 Comment: [...] last reviewed 2021. Blood 10/02/2024 2:16 PM PROPOSAL REVIEW ANALYST 10/02/2024 2:48 PM PROPOSAL REVIEW ANALYST us Alejandro Shipman MD LAB BLOOD ORDERABLES Final R esult [facility] Department [place] [address] * Differential, auto (10/02/2024 2:16 PM PROPOSAL REVIEW ANALYST) Pathologist [facility] Neutrophil abs 3.1 1.5 - 6.5 K/cumm Comment:Testing performed by : [facility], [address] [place] [phone] Lymphocyte abs 0.9 0.8 - 3.3 K/cumm LISA REYNA Comment:Testing performed by : [facility], [address] [place] [address], [place] [address] Monocyte abs 0.8 0.2 - 0.8 K/cumm [facility] Comment:Testing performed by : [facility], [address] [place] [phone] Eosinophil abs 0.4 0.0 - 0.5 K/cumm [facility] Comment:Testing performed by : [facility], [address] [place] [phone] Basophil abs 0.0 0.0 - 0.1 K/cumm [facility] Comment:Testing performed by : [facility], [address] [place] [phone] Neutrophil pct 58.8 % [facility] Comment: Interpretive Data Percent cell count reference ranges are not reported, since discordance with absolute values may lead to misinterpretation of CBC data. Current Interpretive Data was last revised on 2017. Testing performed by: [facility], [address] [place] [phone] Lymphocyte pct 17.4 % [facility] Comment: Interpretive Data Percent cell count reference ranges are not reported, since discordance with absolute values may lead to misinterpretation of CBC data. Current Interpretive Data was last revised on 2017. Testing performed by: [facility], [address] [place] [phone] Monocyte pct 14.9 % [facility] Comment: Interpretive Data Percent cell count reference ranges are not reported, since discordance with absolute values may lead to misinterpretation of CBC data. Current Interpretive Data was last revised on 2017. Testing performed by: [facility], [address] [place] [phone] Eosinophil pct 8.1 % [facility] Comment: Interpretive Data Percent cell count reference ranges are not reported, since discordance with absolute values may lead to misinterpretation of CBC data. Current Interpretive Data was last revised on 2017. Testing performed by: [facility], [address] [place] [phone] Basophil pct 0.8 % [facility] Comment: Interpretive Data Percent cell count reference ranges are not reported, since discordance with absolute values may lead to misinterpretation of CBC data. Current Interpretive Data was last revised on 2017. Testing performed by: [facility], [address] [place] [phone] Blood 10/02/2024 2:16 PM PROPOSAL REVIEW ANALYST 10/02/2024 2:39 PM PROPOSAL REVIEW ANALYST Result [facility] Alejandro Shipman MD LAB BLOOD ORDERABLES Final R esult [facility] [address] * (ABNORMAL) Thyroid Function [place] (10/02/2024 2:16 PM PROPOSAL REVIEW ANALYST) TSH 0.09(L) 0.30 - 4.20 mcIUnit/mL Blood 10/02/2024 2:16 PM PROPOSAL REVIEW ANALYST 10/02/2024 2:41 PM PROPOSAL REVIEW ANALYST Result [facility] Alejandro Shipman MD LAB BLOOD ORDERABLES Final R esult Performing Organization Address [facility] Co de Phone Number [facility] [address] * Iron profile w/ IBC (10/02/2024 2:16 PM PROPOSAL REVIEW ANALYST) Iron 49 35 - 145 mcg/dL TIBC See Comment 250 - 400 mcg/dL [facility] Comment:Unable to calculate Transferrin saturation See Comment 20 - 50 % [facility] Comment:Unable to calculate Blood 10/02/2024 2:16 PM PROPOSAL REVIEW ANALYST 10/02/2024 2:48 PM PROPOSAL REVIEW ANALYST Result [facility] us Alejandro Shipman MD LAB BLOOD ORDERABLES Final R esult Performing Organization Address [facility]/ZIP Co de Phone Number [facility] [address] * (ABNORMAL) CBC with auto differential (10/02/2024 2:16 PM PROPOSAL REVIEW ANALYST) Pathologist [facility] WBC 5.3 3.8 - 9.9 K/cumm Comment:Testing performed by : [facility], [address] [place] [address] Hgb 13.5 11.9 - 15.5 g/dL CERNER [facility]J Comment:Testing performed by : [facility], [address] [place] [address] Hct 41.7 35.6 - 45.5 % CERNER [facility] Comment:Testing performed by : [facility], [address] [place] [address] Plt 158 150 - 400 K/cumm CERNER [facility]J Comment:Testing performed by : [facility], [address] [place] [address] MPV 11.1(H) 6.8 - 10.4 fL C[facility]ER [facility] Comment:Testing performed by : [facility], [address] [place] [address] RBC 4.33 3.90 - 5.20 M/cumm CERNER [facility] Comment:Testing performed by : [facility], [address] [place] [address] MCV 96.2 81.3 - 96.4 fL C[facility]ER [facility] Comment:Testing performed by : [facility], [address] [place] [address] MCH 31.2 27.1 - 33.3 pg CERNER [facility] Comment:Testing performed by : [facility], [address] [place] [address] MCHC 32.4 32.3 - 35.7 g/dL CERNER [facility] Comment:Testing performed by : [facility], [address] [place] [address] RDW CV 26.5(H) 11.1 - 14.9 % CERNER [facility] Comment:Testing performed by : [facility], [address] [place] [address] NRBC abs 0.00 0.00 - 0.01 K/cumm [facility] Comment:Testing performed by : [facility], [address] [place] [phone] Blood 10/02/2024 2:16 PM PROPOSAL REVIEW ANALYST 10/02/2024 2:39 PM PROPOSAL REVIEW ANALYST Alejandro Shipman MD LAB BLOOD ORDERABLES Final R esult Performing Organization Address City/[facility] [place] [address] * T3, free (10/02/2024 2:16 PM PROPOSAL REVIEW ANALYST) Free T3 2.8 2.0 - 4.4 pg/mL Blood 10/02/2024 2:16 PM PROPOSAL REVIEW ANALYST 10/02/2024 2:48 PM PROPOSAL REVIEW ANALYST Narrative [facility] - 10/02/2024 4:06 PM PROPOSAL REVIEW ANALYST This test was reflexed from a T4 result. Alejandro Shipman MD LAB BLOOD ORDERABLES Final R esult Performing Organization Address [facility] [place] [address] * T4, free (10/02/2024 2:16 PM PROPOSAL REVIEW ANALYST) Free T4 1.20 0.90 - 1.70 ng/dL Blood 10/02/2024 2:16 PM PROPOSAL REVIEW ANALYST 10/02/2024 2:48 PM PROPOSAL REVIEW ANALYST Narrative [facility] - 10/02/2024 3:38 PM PROPOSAL REVIEW ANALYST This test was reflexed from a TSH result. Alejandro Shipman MD LAB BLOOD ORDERABLES Final R esult Performing Organization Address [facility]/[place] [address] * (ABNORMAL) Hemoglobin A1c (10/02/2024 2:16 PM PROPOSAL REVIEW ANALYST) Hgb A1C 5.9(H) 4.0 - 5.6 % Estimated Average Glucose 123 mg/dL [facility] Comment: The ADA recommends reporting an estimated Average Glucose (eAG) with all Hemoglobin A1c results using the equation derived from a study of 507 normal and diabetic adults. Minority populations were underrepresented and children were not included. (Diabetes Care 2020; 43(S1): S66-S76). The eAG is not equivalent to a fasting glucose. Blood 10/02/2024 2:16 PM PROPOSAL REVIEW ANALYST 10/02/2024 2:43 PM PROPOSAL REVIEW ANALYST Alejandro Shipman MD LAB BLOOD ORDERABLES Final R esult Performing Organization Address [facility] Co de Phone Number [facility] [place] [address] * (ABNORMAL) Ferritin (10/02/2024 2:16 PM PROPOSAL REVIEW ANALYST) Ferritin 195(H) 13 - 150 ng/mL Blood 10/02/2024 2:16 PM PROPOSAL REVIEW ANALYST 10/02/2024 2:48 PM PROPOSAL REVIEW ANALYST Alejandro Shipman MD LAB BLOOD ORDERABLES Final R esult Performing Organization Address City/[facility] Co de Phone Number [facility] [place] [address] * Lipid panel (10/02/2024 2:16 PM PROPOSAL REVIEW ANALYST) Cholesterol 130 30 - 199 mg/dL Comment: [...] revised on 2018. Triglycerides 73 <=149 mg/dL [facility] Comment: Interpretive Data Ages < or = [...] revised on 2018. HDL 50 >=40 mg/dL [facility] Comment: Interpretive Data Ages < or = [...] on 2018. LDL, calculated 65 <=129 mg/dL [facility] Comment: Interpretive Data Ages < or = [...] 2. NCEP Expert Panel. Circulation 2004;110:227 3. [place] M et al. JALIL Cardiol. 2020 December 11;5(5):540-548. doi: 10.1001/jamacardio.2020.0013 Current Interpretive Data was last revised on 2024. Non-HDL Cholesterol 80 mg/dL [facility] Comment: Interpretive Data Ages < or = [...] last revised on 2018. Chol/HDL ratio 3 [facility] Blood 10/02/2024 2:16 PM PROPOSAL REVIEW ANALYST 10/02/2024 2:41 PM PROPOSAL REVIEW ANALYST us Alejandro Shipman MD LAB BLOOD ORDERABLES Final R esult [facility] [place] [address] * (ABNORMAL) Comprehensive metabolic panel (10/02/2024 2:16 PM PROPOSAL REVIEW ANALYST) Sodium 140 135 - 145 mmol/L Potassium, pl 4.8 3.3 - 4.9 mmol/L [facility] Chloride 105 97 - 110 mmol/L [facility] CO2 27 22 - 32 mmol/L [facility] Anion gap 8 2 - 15 mmol/L [facility] BUN 23 6 - 25 mg/dL [facility] Creatinine 1.59(H) 0.60 - 1.10 mg/dL [facility] Glucose 100 70 - 199 mg/dL [facility] Comment: Interpretive Data Fasting glucose >/= [...] classification and Diagnosis of Diabetes Diabetes Care 202; 46: S19-S40. Current interpretive data was last revised 2022. Calcium 8.9 8.5 - 10.3 mg/dL [facility] Bilirubin, total 0.5 0.1 - 1.2 mg/dL [facility] Protein, pl 7.1 6.5 - 8.5 g/dL [facility] Albumin 4.2 3.5 - 5.0 g/dL [facility] Alk phos 102 40 - 130 Units/L [facility] ALT 21 7 - 45 Units/L [facility] AST 35 10 - 45 Units/L [facility] Comment:Hemolyzed; result ma y be falsely elevated Blood 10/02/2024 2:16 PM PROPOSAL REVIEW ANALYST 10/02/2024 2:48 PM PROPOSAL REVIEW ANALYST us Alejandro Shipman MD LAB BLOOD ORDERABLES Final R esult [facility] [place] [address] * COLONOSCOPY (03/10/2021 11:25 AM CDT) Anatomical Region Laterality Modality Other Narrative Procedure Note Rosy Valverde MD - 03/10/2021 11:25 AM CDT ENDOSCOPY LAB Patient Name: Diane Silva Procedure Date: 03/10/2021 11:25 AM Date of : 1945 Admit Type: Outpatient Age: 75 Gender: Female Attending MD: Rosy Valverde M.D. Room: [facility] ENDOSCOPY ROOM 01 Note Status: Finalized [...] The scope was passed under direct vision.The [id number] was introduced through the anusand advanced to [...] During normal business hours - [facility]: [phone] After hours, evening, nights, weekends and holidays- Please call the hospital yarding and folding machine operator at and ask for the GI fellow automation sales manager. - . Attending Participation: I personally performed the entire procedure. Electronically Signed By: Rosy Valverde M.D. Rosy Valverde M.D. 03/10/2021 11:51:46 AM Number of Addenda: 0 Note Initiated On: 03/10/2021 11:25 AM Rosy Valverde MD ENDOSCOPY PROCEDURES Fin al Result * Hepatitis C antibody (08/23/2018 11:13 AM PROPOSAL REVIEW ANALYST) Hep C Ab Nonreactive Nonreactive [facility] Comment: Interpretive Data Positive results should be confirmed by a molecular method. If positive, a second separately collected sample should be submitted for Hepatitis C Virus (HCV) RNA Detection and Quantitation by Real-Time Reverse Chef'S Assistant-PCR (RT-PCR). Current interpretive data was last revised on 2016. Blood specimen (specimen) 08/23/2018 11:13 AM PROPOSAL REVIEW ANALYST 08/23/2018 2:46 PM PROPOSAL REVIEW ANALYST Narrative [facility] - 08/24/2018 10:41 AM PROPOSAL REVIEW ANALYST us Lilian Garcia MD LAB MICROBIOLOGY - GENERAL OR DERABLES Edited Result - Final [facility] [place] [address] from Last 3 Months or Most Recently Relevant to Health Maintenance Insurance MEDICARE SOLUTIONS COUNTS INCLUDE 234 BEDS AT THE [facility] MEDICARE INCLUDE 234 BEDS AT THE [facility] MEDICARE Address: [address] [place] [address] AETNA MEDICARE AETNA MEDICARE Advance Directives For more information, please contact: [phone] * Full Code (Latest Code Status on [...] 9:03 AM 09/22/2022 11:59 PM Care Teams Guest Relations Coordinator Relationship Specialty Start Date End Date Tera Seals DO [address] [place] [address] PCP - General Family Medicine 05/05/22 Nl-Neuromuscle, [facility] - [address] [place] [address] Referring Physician Neurology 04/18/18 Ferny Kearns MD PhD [address] [place] [address] Referring Physician Cardiology 04/21/21
--- OUTSIDE RECORDS SUMMARY | 2024-10-04 08:31 | XMS_ITS | Referral Summary ---
Author Organization [facility] Address [address] [place] [address] Care Team Providers Care Social Media Project Manager Name Role Phone Unavailable Primary Care Provider Unavailabl e Source Comments [facility],non-owned Affiliates and Associated Physician Practices is amultiple site organization consisting of ambulatory clinics and hospital sitesin [place], [place], [place] and [place]. This disclosure is being madepursuant to the Care Everywhere program and may not contain all information available regarding this patient. Last updated 18.[facility] Allergies Active Allergy Reactions Criticality Noted [...] times daily 04/21/2021 Activ e Glucosamine-Chondroit in 8951-6021 MG/30ML Take 1,500 mg by mouth 2 [...] CDT Plan of Treatment Not on file [facility] Personal/Famil y Self 1945 [address] [place] [address] KENDIANE TSAI Personal/Famil y Spouse [address] [place] [address] [facility] TSAI Personal/Famil y Spouse [address] [place] [address]
--- OUTSIDE RECORDS SUMMARY | 2024-10-04 08:31 | XMS_ITS | Encounter Summary ---
Author Organization [facility] Address [address] [place] [address] Phone Care Team Providers Care Foreign Exchange Dealer Name Role Phone Yousif Benton MD Primary Care Provider [phone] Nl-Neuromuscle, Wusm - Unavailable Unavailab Micheal George MD Primary Care Provider Yoselin Garcia RN Unavailable [phone] Ferny Kearns MD PhD Unavailable [phone] Tera Seals DO Primary Care Provider Charu Galdamez [facility] Unavailable [phone] Encounter Details Date Type Department Care Team [...] on file Legal Sex Female 6:53 AM BLOCKING MACHINE TENDER Gender Identity Not on file Sexual Orientation [...] COVID: Suspected 09/22/2021 09/22/2021 09/23/2021 3:06 AM BLOCKING MACHINE TENDER COVID: Suspected 11/11/2022 11/11/2022 11/11/2022 1:37 PM CDT documented as of this encounter Care Teams Foreign Exchange Dealer Relationship Specialty Start Date End Date Yousif Benton MD [address] [place] [address] PCP - General 06/18/17 03/12/20 Micheal Burton MD [address] [place] [address] PCP - General Family Medicine 03/13/20 05/04/22 Tera Seals DO [address] [place] [address] PCP - General Family Medicine 05/05/22 Nl-Neuromuscle, [facility] [address] [place] [address] Referring Physician Neurology 04/18/18 Yoselin Garcia, RN [address] [address] SHOP Outpatient Issuing Operator 01/28/21 02/24/21 Ferny Kearns MD PhD [address] [address] Referring Physician Cardiology 04/21/21 Charu Galdamez, TEAM LEAD [address] [facility] ([facility]) Mailstop [phone] [place] [address] SHOP Outpatient Issuing Operator 01/24/23 02/20/23 documented as of this encounter
--- OUTSIDE RECORDS SUMMARY | 2024-10-04 08:31 | XMS_ITS | Encounter Summary ---
Author Organization [facility] Address [address] [place] [address] Phone Care Team Providers Care Loan Broker Name Role Phone Nl-Tawny Valdes - Unavailable Unavailab Ferny Harris MD PhD Unavailable [phone] Tera Seals DO Primary Care Provider Charu Galdamez PRODUCT SAFETY LEAD Unavailable [phone] Encounter Details Date Type Department Care Team [...] often do you attend chur ch or pentecostalism services? Never 11/10/2022 Do you belong to any clubs o r organizations such as religious groups, unions, fraternal or athletic groups, or [...] slept in a halfway (including now)? No 11/10/2022 Comments No Sex and Gender Information Value Date Recorded Sex Assigned at Not on file Legal Sex Female 6:53 AM PARK GUARD Gender Identity Not on file Sexual Orientation [...] on filedocumented in this encounter Care Teams Loan Broker Relationship Specialty Start Date End Date Tera Seals DO [address] [place] [address] PCP - General Family Medicine 05/05/22 Nl-Neuromuscle, [facility] - [address] [place] [address] Referring Physician Neurology 04/18/18 Ferny Kearns MD PhD [facility] [place] [address] Referring Physician Cardiology 04/21/21 Charu Galdamez, [facility] [address] [facility] ([facility] Mailstop [phone] [place] [address] SHOP Outpatient Replanting Machine Crew 01/24/23 02/20/23 documented as of this encounter
--- OUTSIDE RECORDS SUMMARY | 2024-10-04 08:31 | XMS_ITS | Encounter Summary ---
Author Organization [facility] Address [address] [place] [address] Phone Care Team Providers Care Engine Generator Assembler Name Role Phone Yousif Benton MD Primary Care Provider [phone] Unknown, Notinfile Primary Care Provider Unavail able Yousif Benton MD Primary Care Provider [phone] Nl-Neuromuscle, Tawny - Unavailable Unavailab Micheal George MD Primary Care Provider Yoselin Garcia RN Unavailable [phone] Ferny Kearns MD PhD Unavailable [phone] Tera Seals DO Primary Care Provider Charu Galdamez [employer] CRM DEVELOPER Unavailable [phone] Encounter Details Date Type Department Care Team (Late st Contact Info) Description 08/10/2014 Orders Only WUCEDRIC DANGELO CAR CLINCONV Provider, MD Maame [address] [place] [address] Social History Tobacco Use Types Packs/Day Years Used Date Smoking Tobacco: Never Assessed Comments Unknown Sex and Gender Information Value Date Recorded Sex Assigned at Not on file Legal Sex Female 6:53 AM TAXATION INSPECTOR Gender Identity Not on file Sexual [...] COVID: Suspected 09/22/2021 09/22/2021 09/23/2021 3:06 AM TAXATION INSPECTOR COVID: Suspected 11/11/2022 11/11/2022 11/11/2022 1:37 PM CDT documented as of this encounter Care Teams Engine Generator Assembler Relationship Specialty Start Date End Date Yousif Benton MD [address] [address] PCP - General 12/27/16 06/07/17 Unknown, Notinfile PCP - General 06/08/17 06/17/17 Yousif Benton MD [address] [place] [address] PCP - General 06/18/17 03/12/20 Micheal Burton MD [address] [place] [address] PCP - General Family Medicine 03/13/20 05/04/22 Tera Seals DO [address] [place] [address] PCP - General Family Medicine 05/05/22 Nl-NeuromuscTawny stanley - [address] [place] [address] Referring Physician Neurology 04/18/18 Yoselin Garcia, RN [address] [facility] [address] [place] [address] RASHIDA Outpatient Policy Officer 01/28/21 02/24/21 Ferny Kearns MD PhD [address] [facility] [address] [place] [address] Referring Physician Cardiology 04/21/21 Charu Galdamez LCSW [address] [facility] ([facility] Mailstop [phone] [place] [address] RASHIDA Outpatient Policy Officer 01/24/23 02/20/23 documented as of this encounter
--- OUTSIDE RECORDS SUMMARY | 2024-10-04 08:31 | XMS_ITS | Encounter Summary ---
Author Organization [facility] Address [address] [place] [address] Phone Care Team Providers Care Director Child Abuse Therapy Name Role Phone Yousif Benton MD Primary Care Provider [phone] Nl-Neuromuscle, [place]usm - Unavailable Unavailab Micheal George MD Primary Care Provider Yoselin Garcia RN Unavailable [phone] Ferny Kearns MD PhD Unavailable [phone] Tera Seals DO Primary Care Provider Charu Galdamez [facility] Unavailable [phone] Encounter Details Date Type Department Care Team (Late st Contact Info) Description 04/23/2019 Telephone [facility] ([facility]) - [facility] Urology [address] [facility] Advanced Medicine 11th [place] [address] [place] [address] Nolvia Garcia Social History Tobacco Use Types Packs/Day Years Used Date Smoking Tobacco: Never Smokeless Tobacco: Never Alcohol Use Standard Drinks/Week Comments No 0 (1 standard drink = 0.6 oz pur e alcohol) Comments No Sex and Gender Information Value Date Recorded Sex Assigned at Not on file Legal Sex Female 6:53 AM CAR WASH SUPERVISOR Gender Identity Not on file Sexual Orientation Not on file documented as of this encounter Plan of Treatment Not on file documented as of this encounter Visit Diagnoses Not on filedocumented in this encounter Additional Health Concerns Infection Onset Date Last Indicated Resolved Time COVID: Suspected 09/22/2021 09/22/2021 09/23/2021 3:06 AM CAR WASH SUPERVISOR COVID: Suspected 11/11/2022 11/11/2022 11/11/2022 1:37 PM CDT documented as of this encounter Care Teams Director Child Abuse Therapy Relationship Specialty [place] [address] [place] [address] [place] [address] PCP - General 06/18/17 03/12/20 Micheal Burton MD [address] [place] [address] PCP - General Family Medicine 03/13/20 05/04/22 Tera Seals DO [address] [place] [address] PCP - General Family Medicine 05/05/22 Nl-Neuromuscle, [facility] [address] [place] [address] Referring Physician Neurology 04/18/18 Yoselin Garcia, DELILAH [address] [place] [address] SHOP Outpatient Damper Maker 01/28/21 02/24/21 Ferny Kearns MD PhD [address] [facility] [address] [place] [address] Referring Physician Cardiology 04/21/21 Charu Galdamez, PACKAGING ASSEMBLER [address] [facility] ([facility] Mailstop [phone] [place] [address] SHOP Outpatient Damper Maker 01/24/23 02/20/23 documented as of this encounter
--- OUTSIDE RECORDS SUMMARY | 2024-10-04 08:31 | XMS_ITS | Encounter Summary ---
Author Organization [facility] Address [address] [place] [address] Phone Care Team Providers Care Border Patrol Agent Name Role Phone Yousif Benton MD Primary Care Provider [phone] Unknown, Notinfile Primary Care Provider Unavail able Yousif Benton MD Primary Care Provider [phone] Nl-Neuromuscle, Tawny - Unavailable Unavailab Micheal George MD Primary Care Provider Yoselin Garcia RN Unavailable [phone] Ferny Kearns MD PhD Unavailable [phone] Tera Seals DO Primary Care Provider Charu Galdamez CONTOUR BAND SAW OPERATOR VERTICAL Unavailable [phone] Encounter Details Date Type Department Care Team (Late st Contact Info) Description 07/30/2013 Orders Only WUCEDRIC DANGELO CAR CLINCONV Provider, MD Maame [address] [place] [address] Social History Tobacco Use Types Packs/Day Years Used Date Smoking Tobacco: Never Assessed Comments Unknown Sex and Gender Information Value Date Recorded Sex Assigned at Not on file Legal Sex Female 6:53 AM PLANT WORKER Gender Identity Not on file Sexual Orientation [...] COVID: Suspected 09/22/2021 09/22/2021 09/23/2021 3:06 AM PLANT WORKER COVID: Suspected 11/11/2022 11/11/2022 11/11/2022 1:37 PM CDT documented as of this encounter Care Teams Border Patrol Agent Relationship Specialty Start Date End Date Yousif Benton MD [address] [address] PCP - General 12/27/16 06/07/17 Unknown, Notinfile PCP - General 06/08/17 06/17/17 Yousif Benton MD [address] [address] PCP - General 06/18/17 03/12/20 Micheal Burton MD [address] [place] [address] PCP - General Family Medicine 03/13/20 05/04/22 Tera Seals DO [address] [place] [address] PCP - General Family Medicine 05/05/22 Nl-NeuromuscTawny stanley - [address] [place] [address] Referring Physician Neurology 04/18/18 Yoselin Garcia, RN [address] [facility] [address] [place] [address] RASHIDA Outpatient Transfer And Pumphouse Operator 01/28/21 02/24/21 Ferny Kearns MD PhD [address] [facility] [address] [place] [address] Referring Physician Cardiology 04/21/21 Chrau Galdamez LCSW [address] [facility] ([facility]) Mailstop [phone] [place] [address] RASHIDA Outpatient Transfer And Pumphouse Operator 01/24/23 02/20/23 documented as of this encounter
--- OUTSIDE RECORDS SUMMARY | 2024-10-04 08:31 | XMS_ITS | Referral Summary ---
Author Organization [facility] Address [address] [place] [address] Care Team Providers Care Processing Technologist Name Role Phone Unavailable Primary Care Provider [...]
--- OUTSIDE RECORDS SUMMARY | 2024-10-04 08:31 | XMS_ITS | Encounter Summary ---
Author Organization [facility] Address [address] [place] [address] Phone Care Team Providers Care Spray Worker Name Role Phone Nl-Alishauscjaden, Wusm - Unavailable Unavailab Ferny Harris MD PhD Unavailable Tera Seals DO Primary Care Provider Encounter Details Date Type Department Care Team (Late st Contact Info) Description 04/12/2023 Telephone [facility] Cardiology [facility] Advanced Medicine 8th [place] [address] [place] [address] Ferny Kearns MD PhD [address] [facility] [address] [place] [address] Social History Tobacco Use Types Packs/Day Years [...] often do you attend chur ch or gnosticist services? Never 01/24/2023 Do you belong to any clubs o r organizations such as confucianism groups, unions, fraternal or athletic groups, or [...] place to sleep or slept in a retirement (including now)? No 01/24/2023 Personal Safety Answer Date Recorded Have you ever been in or are you currently in a harmful physical or emotional relationship or is someone making you feel afraid or unsafe? Denies 01/16/2023 Comments No Sex and Gender Information Value Date Recorded Sex Assigned at Not on file Legal Sex Female 6:53 AM GLASS SCULLION Gender Identity Not on file Sexual Orientation Not on file documented as of this encounter Plan of Treatment Not on file documented as of this encounter Visit Diagnoses Not on filedocumented in this encounter Care Teams Spray Worker Relationship Specialty Start Date End Date Tera Seals DO [address] [place] [address] PCP - General Family Medicine 05/05/22 Nl-Neuromuscle, [facility] - [address] [place] [address] Referring Physician Neurology 04/18/18 Ferny Kearns MD PhD [address] [place] [address] Referring Physician Cardiology 04/21/21 documented as of this encounter
--- OUTSIDE RECORDS SUMMARY | 2024-10-04 08:31 | XMS_ITS | Encounter Summary ---
Author Organization [facility] Address [address] [place] [address] Phone Care Team Providers Care Personnel Clerk Name Role Phone Yousif Benton MD Primary Care Provider [phone] Unknown, Notinfile Primary Care Provider Unavail able Yousif Benton MD Primary Care Provider [phone] Nl-Neuromuscle, Tawny - Unavailable Unavailab Micheal George MD Primary Care Provider Yoselin Garcia RN Unavailable [phone] Ferny Kearns MD PhD Unavailable [phone] Tera Seals DO Primary Care Provider Charu Galdamez CONVEX GRINDER Unavailable [phone] Encounter Details Date Type Department Care Team (Late st Contact Info) Description 07/31/2014 Orders Only WUCEDRIC DANGELO CAR CLINCONV Provider, MD Maame [address] [place] [address] Social History Tobacco Use Types Packs/Day Years Used Date Smoking Tobacco: Never Assessed Comments Unknown Sex and Gender Information Value Date Recorded Sex Assigned at Not on file Legal Sex Female 6:53 AM SHAPER OPERATOR Gender Identity Not on file Sexual [...] COVID: Suspected 09/22/2021 09/22/2021 09/23/2021 3:06 AM SHAPER OPERATOR COVID: Suspected 11/11/2022 11/11/2022 11/11/2022 1:37 PM CDT documented as of this encounter Care Teams Personnel Clerk Relationship Specialty Start Date End Date Yousif Benton MD [address] [place] [address] PCP - General 12/27/16 06/07/17 Unknown, Notinfile PCP - General 06/08/17 06/17/17 Yousif Benton MD [address] [address] PCP - General 06/18/17 03/12/20 Micheal Burton MD [address] [place] [address] PCP - General Family Medicine 03/13/20 05/04/22 Tera Seals DO [address] [place] [address] PCP - General Family Medicine 05/05/22 Nl-NeuromuscTawny stanley - [address] [place] [address] Referring Physician Neurology 04/18/18 Yoselin Garcia, RN [address] [facility] [address] [place] [address] RASHIDA Outpatient Nurse Transitional 01/28/21 02/24/21 Ferny Kearns MD PhD [address] [facility] [address] [place] [address] Referring Physician Cardiology 04/21/21 Charu Galdamez LCSW 4590 [facility] ([facility] Mailstop [phone] [place] [address] RASHIDA Outpatient Nurse Transitional 01/24/23 02/20/23 documented as of this encounter
--- OUTSIDE RECORDS SUMMARY | 2024-10-04 08:31 | XMS_ITS | Encounter Summary ---
Author Organization [facility] Address [address] [place] [address] Phone Care Team Providers Care Oil Tester Name Role Phone Yousif Benton MD Primary Care Provider [phone] Unknown, Notinfile Primary Care Provider Unavail able Yousif Benton MD Primary Care Provider [phone] Nl-Neuromuscle, Tawny - Unavailable Unavailab Micheal George MD Primary Care Provider Yoselin Garcia RN Unavailable [phone] Ferny Kearns MD PhD Unavailable [phone] Tera Seals DO Primary Care Provider Charu Galdamez THERMOSTAT MECHANIC Unavailable [phone] Encounter Details Date Type Department Care Team (Late st Contact Info) Description 11/13/2013 Orders Only WUCEDRIC DANGELO CAR CLINCONV Provider, MD Maame [address] [place] [address] Social History Tobacco Use Types Packs/Day Years Used Date Smoking Tobacco: Never Assessed Comments Unknown Sex and Gender Information Value Date Recorded Sex Assigned at Not on file Legal Sex Female 6:53 AM CREW PERSON Gender Identity Not on file Sexual Orientation [...] COVID: Suspected 09/22/2021 09/22/2021 09/23/2021 3:06 AM CREW PERSON COVID: Suspected 11/11/2022 11/11/2022 11/11/2022 1:37 PM CDT documented as of this encounter Care Teams Oil Tester Relationship Specialty Start Date End Date Yousif Benton MD [address], [place] [address] PCP - General 12/27/16 06/07/17 Unknown, Notinfile PCP - General 06/08/17 06/17/17 Yousif Benton MD [address] [address] PCP - General 06/18/17 03/12/20 Micheal Burton MD [address] [place] [address] PCP - General Family Medicine 03/13/20 05/04/22 Tera Seals DO [address] [place] [address] PCP - General Family Medicine 05/05/22 Nl-NeuromuscTawny stanley - [address] [place] [address] Referring Physician Neurology 04/18/18 Yoselin Garcia, RN 45[address] [facility] [address] [place] [address] RASHIDA Outpatient Inspector Plug Seam 01/28/21 02/24/21 Ferny Kearns MD PhD 4590 [facility] [address] [place] [address] Referring Physician Cardiology 04/21/21 Charu Galdamez LCSW 4590 [facility] ([facility]) Mailstop [phone] [place] [address] RASHIDA Outpatient Inspector Plug Seam 01/24/23 02/20/23 documented as of this encounter
--- OUTSIDE RECORDS SUMMARY | 2024-10-04 08:31 | XMS_ITS | Clinical Summary ---
Author Organization [facility] Address [address] [place] [address] Care Team Providers Care Html Developer Name Role Phone Unavailable Primary Care Provider [...]
--- OUTSIDE RECORDS SUMMARY | 2024-10-04 08:31 | XMS_ITS | Encounter Summary ---
Author Organization [facility] Address [address] [place] [address] Phone Care Team Providers Care Medical Doctor Md Name Role Phone Yousif Benton MD Primary Care Provider [phone] Unknown, Notinfile Primary Care Provider Unavail able Yousif Benton MD Primary Care Provider [phone] Nl-Neuromuscle, Tawny - Unavailable Unavailab Micheal George MD Primary Care Provider Yoselin Garcia RN Unavailable [phone] Ferny Kearns MD PhD Unavailable [phone] Tera Seals DO Primary Care Provider Charu Galdamez GAG WRITER Unavailable [phone] Encounter Details Date Type Department Care Team (Late st Contact Info) Description 08/14/2013 Orders Only WUCEDRIC DANGELO CAR CLINCONV Provider, MD Maame [address] [place] [address] Social History Tobacco Use Types Packs/Day Years Used Date Smoking Tobacco: Never Assessed Comments Unknown Sex and Gender Information Value Date Recorded Sex Assigned at Not on file Legal Sex Female 6:53 AM SENIOR ORACLE DEVELOPER Gender Identity Not on file Sexual [...] COVID: Suspected 09/22/2021 09/22/2021 09/23/2021 3:06 AM SENIOR ORACLE DEVELOPER COVID: Suspected 11/11/2022 11/11/2022 11/11/2022 1:37 PM CDT documented as of this encounter Care Teams Medical Doctor Md Relationship Specialty Start Date End Date Yousif Benton MD [address], [place] [address] PCP - General 12/27/16 06/07/17 Unknown, Notinfile PCP - General 06/08/17 06/17/17 Yousif Benton MD [address] [place] [address] PCP - General 06/18/17 03/12/20 Micheal Burton MD [address] [place] [address] PCP - General Family Medicine 03/13/20 05/04/22 Tera Seals DO [address] [place] [address] PCP - General Family Medicine 05/05/22 Aga-NeuromuscTawny stanley - [address] [place] [address] Referring Physician Neurology 04/18/18 Yoselin Garcia, RN 45[address] [facility] [address] [place] [address] RASHIDA Outpatient Disability Counselor 01/28/21 02/24/21 Ferny Kearns MD PhD [address] [facility] [address] [place] [address] Referring Physician Cardiology 04/21/21 Charu Galdamez LCSW 4590 [facility] ([facility]) Mailstop [phone] [place] [address] RASHIDA Outpatient Disability Counselor 01/24/23 02/20/23 documented as of this encounter
--- OUTSIDE RECORDS SUMMARY | 2024-10-04 08:31 | XMS_ITS | Encounter Summary ---
Author Organization [facility] Address [address] [place] [address] Care Team Providers Care Customer Service Attendant Name Role Phone Nl-Neuromuscle, Wusm - Unavailable Unavailab Micheal George MD Primary Care Provider Yoselin Garcia RN Unavailable [phone] Ferny Kearns MD PhD Unavailable Tera Seals DO Primary Care Provider Charu Galdamez [facility] Unavailable Encounter Details Date Type Department Care Team (Late st Contact Info) Description 09/09/2020 Telephone [facility] [address] [place] [facility] [place] [address] Jessica Ramos, RT Social History Tobacco Use Types Packs/Day Years Used Date Smoking Tobacco: Never Smokeless Tobacco: Never Alcohol Use Standard Drinks/Week Comments No 0 (1 standard drink = 0.6 oz pur e alcohol) Comments No Sex and Gender Information Value Date Recorded Sex Assigned at Not on file Legal Sex Female 6:53 AM SALES PLANNING COORDINATOR Gender Identity Not on file Sexual Orientation Not on file documented as of this encounter Plan of Treatment Not on file documented as of this encounter Visit Diagnoses Not on filedocumented in this encounter Additional Health Concerns Infection Onset Date Last Indicated Resolved Time COVID: Suspected 09/22/2021 09/22/2021 09/23/2021 3:06 AM SALES PLANNING COORDINATOR COVID: Suspected 11/11/2022 11/11/2022 11/11/2022 1:37 PM CDT documented as of this encounter Care Teams Customer Service Attendant Relationship Specialty Start Date End Date Micheal Burton MD [address] [place] [address] PCP - General Family Medicine 03/13/20 05/04/22 Tera Seals DO [address] [place] [address] PCP - General Family Medicine 05/05/22 Nl-Neuromuscle, [facility] [address] [place] [address] Referring Physician Neurology 04/18/18 Yoselin Garcia, RN 4590 [facility] [address] [place] [address] SHOP Outpatient Fountain Operator 01/28/21 02/24/21 Ferny Kearns MD PhD 4590 [facility] [address] [place] [address] Referring Physician Cardiology 04/21/21 Charu Galdamez, WAYS OPERATOR 4590 [facility] ([facility]) Mailstop [phone] [place] [address] SHOP Outpatient Fountain Operator 01/24/23 02/20/23 documented as of this encounter
--- OUTSIDE RECORDS SUMMARY | 2024-10-04 08:31 | XMS_ITS | Patient Health Summary ---
Author Organization [facility] Address [address] [place] [address] Care Team Providers Care Insurance Claim Approver Name Role Phone Unavailable Primary Care Provider Unavailabl e Note from [facility] [place],non-owned Affiliates and Associated Physician Practices is amultiple site organization consisting of ambulatory clinics and hospital sitesin [place], [place] and [place]. This disclosure is being madepursuant to the Care Everywhere program and may not contain all information available regarding this patient. Last updated 18.[facility] Allergies * Gluten Meal(Diarrhea) -Medium Criticality [...] 40 mg 2 times daily * Glucosamine-Chondroitin 1234-0976 MG/30ML Take 1,500 mg by mouth 2 [...] AM CDT) Case Report Dermatopathology Report Case: [id number] Authorizing Provider: Rosario Robles, Collected: 04/19/2022 03:33 AM JIN Ordering Location: [facility] DermPath Lab Received: 04/20/2022 10:46 AM Pathologist: [...] specimen consists of a shave biopsy measuring [id number]. Jar 0. Specimen B: Received is one formalin filled container labeled with the patient's name and designated right dorsal hand. The specimen consists of a shave biopsy measuring [id number]. Jar 0. 2 12:17 PM [facility] DERMATOPATHOLOGY LABORATORY Microscopic Description Specimen [...] recommended if clinically indicated. 2 12:17 PM [facility] DERMATOPATHOLOGY LABORATORY Disclaimer An external and internal positive and negative controls are appropriate for the histochemical, immunohistochemical and immunofluorescence stain(s) in this case (if any), except where stated explicitly. The performance characteristics of the stain(s) cited in this report were developed and its performance characteristic determined by the Dermatopathology Laboratory at [facility], directed by Dr. Edilma Slade. These tests need not be, and therefore are not, approved by the [place] Food and Drug Administration. The tests are used for clinical purposes. Billing Codes Specimen Charges Stain Charges 72540 77588 1 1 40641 88853 1 1 2 12:17 PM CDT DERMATOPATHOLOGY LABORATORY Embedded Images 2 12:17 PM CDT DERMATOPATHOLOGY LABORATORY Pathology/Cytology TISSUE SPECIMEN FROM SKIN / Unknown 04/19/2022 3:33 AM CDT 04/20/2022 10:46 AM CDT Miscellaneous samples (specimen) TISSUE SPECIMEN FROM SKIN / Unknown 04/19/2022 3:33 AM CDT 04/20/2022 10:46 AM CDT Rosario Robles PA-C LAB - PATHOL OGY/CYTOLOGY ORDERABLES Performing Organization Address [facility]/ZIP Co de Phone Number DERMATOPATHOLOGY LABORATORY [facility] - Department of Dermatology [address] [phone] * GTT 2 HR (75G) NON GESTATIONAL (03/28/2022) Blood BLOOD SPECIMEN / Unknown Xiomara Dumont MD LAB - CHEMISTRY ORD ERABLES OTHER LAB * IMMUNOFIXATION BLOOD (03/01/2022) Blood BLOOD SPECIMEN / Unknown Xiomara Dumont MD LAB - CHEMISTRY ORD ERAJHONNY OTHER LAB
--- OUTSIDE RECORDS SUMMARY | 2024-10-04 08:31 | XMS_ITS | Encounter Summary ---
Author Organization [facility] Address Counts include 234 beds at the [facility] [place] [address] Care Team Providers Care Yarn Bleaching Machine Operator Name Role Phone Yousif Benton MD Primary Care Provider [phone] Micheal Burton MD Primary Care Provider [phone] Tera Seals DO Primary Care Provider [phone] Encounter Details Date Type Department Care Team (Late st Contact Info) Description 01/18/2019 Abstract SFL CONVERSION [address] [place] [address] , Generic ConversionMD Social History Tobacco [...] on filedocumented in this encounter Care Teams Yarn Bleaching Machine Operator Relationship Specialty Start Date End Date Yousif Benton MD [address] [place] [address] PCP - General FAMILY PRACTICE 04/18/19 09/12/20 Micheal Burton MD [address] [place] [address] PCP - General FAMILY PRACTICE 09/13/20 07/31/22 Tera Seals DO [address] [place] [address] PCP - General FAMILY PRACTICE 08/01/22 documented as of this encounter
--- OUTSIDE RECORDS SUMMARY | 2024-10-04 08:31 | XMS_ITS | Clinical Summary ---
Author Organization [facility] Address [address] [place] [address] Care Team Providers Care Chief Of Vital Statistics Name Role Phone Unavailable Primary Care Provider Unavailabl e Source Comments [facility],non-owned Affiliates and Associated Physician Practices is amultiple site organization consisting of ambulatory clinics and hospital sitesin [place], [place], [place] and [place]. This disclosure is being madepursuant to the Care Everywhere program and may not contain all information available regarding this patient. Last updated 18.[facility] Conferize Allergies Active Allergy Reactions Criticality Noted Date [...] times daily 04/21/2021 Activ e Glucosamine-Chondroit in 3710-9509 MG/30ML Take 1,500 mg by mouth 2 [...] this topic CateDiane Personal/Famil y Self 1945 [address] [place] [address] CATEDIANE Personal/Famil y Spouse [address] [place] [address] [facility] MERIDA Personal/Famil [place] Spouse [address] [place] [address]
--- OUTSIDE RECORDS SUMMARY | 2024-10-04 08:31 | XMS_ITS | Clinical Summary ---
Author Organization [facility] Address [address] [place] [address] Phone Care Team Providers Care Ramp Service Employee Name Role Phone Unavailable Primary Care Provider Unavailabl e Social History Tobacco Use Types Packs/Day Years Used Date Smoking Tobacco: Never Assessed Comments Unknown Sex and Gender Information Value Date Recorded Sex Assigned at Not on file Legal Sex Female 3:14 PM JUTE BAG SEWER Gender Identity Not on file Sexual Orientation Not on file Plan of Treatment Not on file
--- OUTSIDE RECORDS SUMMARY | 2024-10-04 08:31 | XMS_ITS | Encounter Summary ---
Author Organization [facility] Address [address] [place] [address] Phone Care Team Providers Care Customer Experience Consultant Name Role Phone Yousif Benton MD Primary Care Provider [phone] Nl-Neuromuscle, Wusm - Unavailable Unavailab Micheal George MD Primary Care Provider Yoselin Garcia RN Unavailable [phone] Ferny Kearns MD PhD Unavailable [phone] Tera Seals DO Primary Care Provider Charu Galdamez [facility] Unavailable [phone] Encounter Details Date Type Department Care Team [...] on file Legal Sex Female 6:53 AM NANOTECHNOLOGIST Gender Identity Not on file Sexual Orientation [...] COVID: Suspected 09/22/2021 09/22/2021 09/23/2021 3:06 AM NANOTECHNOLOGIST COVID: Suspected 11/11/2022 11/11/2022 11/11/2022 1:37 PM CDT documented as of this encounter Care Teams Customer Experience Consultant Relationship Specialty Start Date End Date Yousif Benton MD [address] [facility] [place] [place] [address] PCP - General 06/18/17 03/12/20 Micheal Burton MD [address] [place] [address] PCP - General Family Medicine 03/13/20 05/04/22 Tera Seals DO [address] [place] [address] PCP - General Family Medicine 05/05/22 Nl-Neuromuscle, [facility] [address] [place] [address] Referring Physician Neurology 04/18/18 Yoselin Garcia, RN [address] [address] SHOP Outpatient Digital Account Director 01/28/21 02/24/21 Ferny Kearns MD PhD [address] [address] Referring Physician Cardiology 04/21/21 Charu Galdamez, BLUEPRINT MAKER 4590 [facility] ([facility] Mailstop [phone] [place] [address] SHOP Outpatient Digital Account Director 01/24/23 02/20/23 documented as of this encounter
--- OUTSIDE RECORDS SUMMARY | 2024-10-04 08:31 | XMS_ITS | Encounter Summary ---
Author Organization [facility] Address [address] [place] [address] Phone Care Team Providers Care Electrical Development Engineer Name Role Phone Yousif Benton MD Primary Care Provider [phone] Unknown, Notinfile Primary Care Provider Unavail able Yousif Benton MD Primary Care Provider [phone] Nl-Neuromuscle, Tawny - Unavailable Unavailab Micheal George MD Primary Care Provider Yoselin Garcia RN Unavailable Ferny Kearns MD PhD Unavailable [phone] Tera Seals DO Primary Care Provider Charu Galdamez COMMERCIAL ACCOUNT EXECUTIVE Unavailable [phone] Encounter Details Date Type Department Care Team (Late st Contact Info) Description 03/26/2014 Orders Only WUCEDRIC DANGELO CAR CLINCONV Provider, MD Maame [address] [place] [address] Social History Tobacco Use Types Packs/Day Years Used Date Smoking Tobacco: Never Assessed Comments Unknown Sex and Gender Information Value Date Recorded Sex Assigned at Not on file Legal Sex Female 6:53 AM PHOTOGRAPH DEVELOPER Gender Identity Not on file Sexual [...] COVID: Suspected 09/22/2021 09/22/2021 09/23/2021 3:06 AM PHOTOGRAPH DEVELOPER COVID: Suspected 11/11/2022 11/11/2022 11/11/2022 1:37 PM CDT documented as of this encounter Care Teams Electrical Development Engineer Relationship Specialty Start Date End Date Yousif Benton MD [address] [address] PCP - General 12/27/16 06/07/17 Unknown, Notinfile PCP - General 06/08/17 06/17/17 Yousif Benton MD [address] [address] PCP - General 06/18/17 03/12/20 Micheal Burton MD [address] [place] [address] PCP - General Family Medicine 03/13/20 05/04/22 Tera Seals DO [address] [place] [address] PCP - General Family Medicine 05/05/22 Nl-NeuromuscTawny stanley - [address] [place] [address] Referring Physician Neurology 04/18/18 Yoselin Garcia, RN [address] [facility] [address] [place] [address] RASHIDA Outpatient Anesthesia Director 01/28/21 02/24/21 Ferny Kearns MD PhD 45[address] [facility] [address] [place] [address] Referring Physician Cardiology 04/21/21 Charu Galdamez LCSW 4590 [facility] ([facility]) Mailstop [phone] [place] [address] RASHIDA Outpatient Anesthesia Director 01/24/23 02/20/23 documented as of this encounter
--- OUTSIDE RECORDS SUMMARY | 2024-10-04 08:32 | XMS_ITS | Encounter Summary ---
Author Organization [facility] Address [address] [place] [address] Phone Care Team Providers Care Edging Machine Operator Name Role Phone Yousif Benton MD Primary Care Provider [phone] Nl-Neuromuscle, Wusm - Unavailable Unavailab Micheal George MD Primary Care Provider Yoselin Garcia RN Unavailable [phone] Ferny Kearns MD PhD Unavailable [phone] Tera Seals DO Primary Care Provider Charu Galdamez [facility] Unavailable [phone] Encounter Details Date Type Department Care Team (Latest Contact Info) Description 11/01/2017 Orders Only [place] STROKE Scanning, Provider Social History Tobacco Use Types Packs/Day Years Used Date Smoking Tobacco: Never Comments Unknown Sex and Gender Information Value Date Recorded Sex Assigned at Not on file Legal Sex Female 6:53 AM PHYS ASSISTANT Gender Identity Not on file Sexual Orientation [...] COVID: Suspected 09/22/2021 09/22/2021 09/23/2021 3:06 AM PHYS ASSISTANT COVID: Suspected 11/11/2022 11/11/2022 11/11/2022 1:37 PM CDT documented as of this encounter Care Teams Edging Machine Operator Relationship Specialty Start Date End Date Yousif Benton MD [address] [facility] [place] [place] [address] PCP - General 06/18/17 03/12/20 Micheal Burton MD [address] [place] [address] PCP - General Family Medicine 03/13/20 05/04/22 Tera Seals DO [address] [place] [address] PCP - General Family Medicine 05/05/22 Nl-Neuromuscle, [facility] [address] [place] [address] Referring Physician Neurology 04/18/18 Yoselin Garcia RN [address] [address] [facility] Outpatient Taxi Servicer 01/28/21 02/24/21 Ferny Kearns MD PhD [address] [address] Referring Physician Cardiology 04/21/21 Charu Galdamez, [facility] 45[address] [facility] ([facility] Mailstop [phone] [place] [address] SHOP Outpatient Taxi Servicer 01/24/23 02/20/23 documented as of this encounter
--- OUTSIDE RECORDS SUMMARY | 2024-10-04 08:32 | XMS_ITS | Encounter Summary ---
Author Organization [facility] Address [address] [place] [address] Phone Care Team Providers Care Escalation Engineer Name Role Phone Yousif Benton MD Primary Care Provider [phone] Unknown, Notinfile Primary Care Provider Unavail able Yousif Benton MD Primary Care Provider [phone] Nl-Neuromuscle, Tawny - Unavailable Unavailab Micheal George MD Primary Care Provider Yoselin Garcia RN Unavailable Ferny Kearns MD PhD Unavailable [phone] Tera Seals DO Primary Care Provider Charu Galdamez CISCO NETWORK ARCHITECT Unavailable [phone] Encounter Details Date Type Department Care Team (Late st Contact Info) Description 01/07/2016 Orders Only [facility] CAR CLINCONV Provider, MD Maame [address] [place] [address] Social History Tobacco Use Types Packs/Day Years Used Date Smoking Tobacco: Never Comments Unknown Sex and Gender Information Value Date Recorded Sex Assigned at Not on file Legal Sex Female 6:53 AM ENTRY LEVEL ACCOUNT EXECUTIVE Gender Identity Not on file Sexual Orientation [...] COVID: Suspected 09/22/2021 09/22/2021 09/23/2021 3:06 AM ENTRY LEVEL ACCOUNT EXECUTIVE COVID: Suspected 11/11/2022 11/11/2022 11/11/2022 1:37 PM CDT documented as of this encounter Care Teams Escalation Engineer Relationship Specialty Start Date End Date Yousif Benton MD [address] [address] PCP - General 12/27/16 06/07/17 Unknown, Notinfile PCP - General 06/08/17 06/17/17 Yousif Benton MD [address] [address] PCP - General 06/18/17 03/12/20 Micheal Burton MD [address] [place] [address] PCP - General Family Medicine 03/13/20 05/04/22 Tera Seals DO [address] [place] [address] PCP - General Family Medicine 05/05/22 Nl-Neuromuscle, [facility] - [address] [place] [address] Referring Physician Neurology 04/18/18 Yoselin Garcia RN [address] [address] [employer] Outpatient Photolithographer 01/28/21 02/24/21 Ferny Kearns MD PhD [address] [address] Referring Physician Cardiology 04/21/21 Charu Galdamez, [facility] [address] [facility] ([facility]) Mailstop [phone] [place] [address] [employer] Outpatient Photolithographer 01/24/23 02/20/23 documented as of this encounter
--- OUTSIDE RECORDS SUMMARY | 2024-10-04 08:32 | XMS_ITS | Encounter Summary ---
Author Organization [facility] Address [address] [place] [address] Phone Care Team Providers Care Clinical Program Consultant Name Role Phone Yousif Benton MD Primary Care Provider [phone] Unknown, Notinfile Primary Care Provider Unavail able Yousif Benton MD Primary Care Provider [phone] -Neuromuscle, [facility] - Unavailable Unavailab Micheal George MD Primary Care Provider Yoselin Garcia RN Unavailable [phone] Ferny Kearns MD PhD Unavailable [phone] Tera Seals DO Primary Care Provider Charu Galdamez GAS STATION CASHIER Unavailable [phone] Encounter Details Date Type Department Care Team (Late st Contact Info) Description 10/25/2015 Orders Only [facility] ADULT CLINCONV Seda Dueñas MD [address] [facility] [address] [place] [address] Social History Tobacco Use Types Packs/Day Years Used Date Smoking Tobacco: Never Comments Unknown Sex and Gender Information Value Date Recorded Sex Assigned at Not on file Legal Sex Female 6:53 AM TRANSITION MGR Gender Identity Not on file Sexual Orientation [...] COVID: Suspected 09/22/2021 09/22/2021 09/23/2021 3:06 AM TRANSITION MGR COVID: Suspected 11/11/2022 11/11/2022 11/11/2022 1:37 PM CDT documented as of this encounter Care Teams Clinical Program Consultant Relationship Specialty Start Date End Date Yousif Benton MD [address] [address] PCP - General 12/27/16 06/07/17 Unknown, Notinfile PCP - General 06/08/17 06/17/17 Yousif Benton MD [address] [place] [address] PCP - General 06/18/17 03/12/20 Micheal Burton MD [address] [place] [address] PCP - General Family Medicine 03/13/20 05/04/22 Tera Seals DO [address] [place] [address] PCP - General Family Medicine 05/05/22 Aga-Tawny Valdes [address] [place] [address] Referring Physician Neurology 04/18/18 Yoselin Garcia, RN [address] [facility] [address] [place] [address] [facility] Outpatient Fiscal Accounting Clerk 01/28/21 02/24/21 Ferny Kearns MD PhD [address] [facility] [address] [place] [address] Referring Physician Cardiology 04/21/21 Charu Galdamez, GAS STATION CASHIER [address] [facility] ([facility]) Mailstop [phone] [place] [address] [facility] Outpatient Fiscal Accounting Clerk 01/24/23 02/20/23 documented as of this encounter
--- OUTSIDE RECORDS SUMMARY | 2024-10-04 08:32 | XMS_ITS | Encounter Summary ---
Author Organization [facility] Address [address] [place] [address] Phone Care Team Providers Care Mental Hygienist Name Role Phone Yousif Benton MD Primary Care Provider [phone] Unknown, Notinfile Primary Care Provider Unavail able Yousif Benton MD Primary Care Provider [phone] Nl-Neuromuscle, Tawny - Unavailable Unavailab Micheal George MD Primary Care Provider Yoselin Garcia RN Unavailable [phone] Ferny Kearns MD PhD Unavailable [phone] Tera Seals DO Primary Care Provider Charu Galdamez HUMAN RESOURCE OFFICER Unavailable [phone] Encounter Details Date Type Department Care Team (Late st Contact Info) Description 10/25/2015 Orders Only [facility] CAR CLINCONV Provider, MD Maame [address] [place] [address] Social History Tobacco Use Types Packs/Day Years Used Date Smoking Tobacco: Never Comments Unknown Sex and Gender Information Value Date Recorded Sex Assigned at Not on file Legal Sex Female 6:53 AM ASPHALT TAMPING MACHINE OPERATOR Gender Identity Not on file Sexual [...] COVID: Suspected 09/22/2021 09/22/2021 09/23/2021 3:06 AM ASPHALT TAMPING MACHINE OPERATOR COVID: Suspected 11/11/2022 11/11/2022 11/11/2022 1:37 PM CDT documented as of this encounter Care Teams Mental Hygienist Relationship Specialty Start Date End Date Yousif Benton MD [address] [address] PCP - General 12/27/16 06/07/17 Unknown, Notinfile PCP - General 06/08/17 06/17/17 Yousif Benton MD [address] [address] PCP - General 06/18/17 03/12/20 Micheal Burton MD [address] [place] [address] PCP - General Family Medicine 03/13/20 05/04/22 Tera Seals DO [address] [place] [address] PCP - General Family Medicine 05/05/22 Nl-NeuromuscTawny stanley - [address] [place] [address] Referring Physician Neurology 04/18/18 Yoselin Garcia, RN [address] [facility] [address] [place] [address] [facility]ASH[facility] Outpatient Clinical Assessment Manager 01/28/21 02/24/21 Ferny Kearns MD PhD [address] [facility] [address] [place] [address] Referring Physician Cardiology 04/21/21 Charu Galdamez LCSW [address] [facility] ([facility]) Mailstop [phone] [place] [address] [employer] Outpatient Clinical Assessment Manager 01/24/23 02/20/23 documented as of this encounter
--- OUTSIDE RECORDS SUMMARY | 2024-10-04 08:32 | XMS_ITS | Encounter Summary ---
Author Organization [facility] Address [address] [place] [address] Phone Care Team Providers Care Retort Feeder Ground Bone Name Role Phone Yuosif Benton MD Primary Care Provider [phone] Unknown, Notinfile Primary Care Provider Unavail able Yousif Benton MD Primary Care Provider [phone] Nl-Neuromuscle, Tawny - Unavailable Unavailab Micheal George MD Primary Care Provider Yoselin Garcia RN Unavailable [phone] Ferny Kearns MD PhD Unavailable [phone] Tera Seals DO Primary Care Provider Charu Galdamez REGULATORY COMPLIANCE SPECIALIST Unavailable [phone] Encounter Details Date Type Department Care Team (Late st Contact Info) Description 02/29/2016 Orders Only [facility] CAR CLINCONV Provider, MD Maame [address] [place] [address] Social History Tobacco Use Types Packs/Day Years Used Date Smoking Tobacco: Never Comments Unknown Sex and Gender Information Value Date Recorded Sex Assigned at Not on file Legal Sex Female 6:53 AM DRILL RIG OPERATOR Gender Identity Not on file Sexual [...] COVID: Suspected 09/22/2021 09/22/2021 09/23/2021 3:06 AM DRILL RIG OPERATOR COVID: Suspected 11/11/2022 11/11/2022 11/11/2022 1:37 PM CDT documented as of this encounter Care Teams Retort Feeder Ground Bone Relationship Specialty Start Date End Date Yousif Benton MD [address] [address] PCP - General 12/27/16 06/07/17 Unknown, Notinfile PCP - General 06/08/17 06/17/17 Yousif Benton MD [address] [address] PCP - General 06/18/17 03/12/20 Micheal Burton MD [address] [place] [address] PCP - General Family Medicine 03/13/20 05/04/22 Tera Seals DO [address] [place] [address] PCP - General Family Medicine 05/05/22 Nl-Neuromuscle, [facility] - [address] [place] [address] Referring Physician Neurology 04/18/18 Yoselin Garcia RN [address] [address] [employer] Outpatient Cloth Dyeing Range Tender 01/28/21 02/24/21 Ferny Kearns MD PhD [address] [address] Referring Physician Cardiology 04/21/21 Charu Galdamez, [facility] [address] [facility] ([facility]) Mailstop [phone] [place] [address] [employer] Outpatient Cloth Dyeing Range Tender 01/24/23 02/20/23 documented as of this encounter
== END 2024-10-04 08:26 | disposition home or self-care (01) ==
LOC: CHSIMG 08:28
PROVIDERS: PCP Nurse Practitioner Family; Visit Provider Nurse Practitioner Family
DX: R42 Dizziness and giddiness (principal); R53.1 Weakness; R26.81 Unsteadiness on feet; Z86.73 Personal history of transient ischemic attack (TIA), and cerebral infarction without residual deficits; R90.82 White matter disease, unspecified; H74.8X2 Other specified disorders of left middle ear and mastoid
CPT/HCPCS: 70551

== ENCOUNTER 2024-10-15 08:11 | Outpatient (RCR) | payer MEDICARE, SELFPAY ==
--- NOTE | 2024-10-15 09:12 | OPREHPOC ---
Outpatient Therapy Plan of Care This is a Multidisciplinary Plan of Care that may contain components documented by all disciplines (PT, OT, and ST.) PT Problem 1 PT Problem #1 Knowledge Deficit PT Goal 1 Goal / Goal Update 1. independent and compliant with HEP Target Visit 6 PT Problem 2 PT Problem #2 Impaired Strength PT Goal 1 Goal / Goal Update 1. improve L hip strength to 4+/5 or better overall 2. improve R knee strength to 5/5 overall Target Visit 12 PT Problem 3 PT Problem #3 Impaired Balance PT Goal 1 Goal / Goal Update 1. low fall risk noted by 5x sit to stand completion in less than 15 seconds 2. low fall risk per the tinetti 3. LAWRENCE to display 4 point or better improvement Target Visit 12 PT Problem 4 PT Problem #4 Impaired Functional Mobility PT Goal 1 Goal / Goal Update 1. no falls since being a patient in skilled PT 2. patient to report feeling more confident walking 3. no scissoring gait episodes noted during the last week of PT Target Visit 12
--- NOTE | 2024-10-15 09:12 | PTOPEVAL1 ---
Assessment and note entered by JT File, PT Evaluation Information Assessment Status Evaluation Subjective Information patient reports she is having issues with stability when she is walking. she reports she will stagger from side to side. she reports she does not feel the room ever spins around her, or that she is spinning around the room. she reports she will get lightheaded when bending over past her knees and standing back up. she reports she also has issues with sleeping lately. she reports she finds herself being tired all the time. she reports she will also have aching in the hips when getting up, and weakness with inability to lift her buttock off the bed. Reported Pain Level Pain Score 5: Self Report Assessment PT Clinical Summary mrs. hyde is a 79 yo woman who presents to skilled PT services for evaluation and treatment of balance and unsteady gait. she presents this date with moderate fall risk per the tinetti, mild fall risk per the LAWRENCE, and increased fall risk per the 5x sit to stand. she also presents with proximal L LE weakness. she displays unsteady gait noting frequent bouts of scissoring mechanics to catch herself from falling. she would benefit from continued skilled PT to address these objective/ functional deficits and improve her functional activity performance, safety, and independence with functional activities. Plan of Care Interventions Gait Training,Neuro Re-education,Patient/Caregiver Education,Therapeutic Activities,Therapeutic Exercise PT Services Indicated Yes Treatment Frequency and 3x weekly for 12 visits Duration These treatments will address the objective and functional deficits as defined above. The patient will be advanced safely and appropriately in order for the patient to progress towards his/her prior level of function. Additional exercises will be introduced and as well as a comprehensive home exercise program upon discharge, if needed, ?to ensure carryover of functional gains achieved in the clinic. This treatment plan has been reviewed and agreement upon by the patient.
--- NOTE | 2024-10-22 11:16 | PCPTNOTE ---
Cancelled session today. Reports feeling very imbalanced.
--- NOTE | 2024-10-28 17:33 | PCPTNOTE ---
Patient called & cancelled scheduled appointment this date due to having another appointment.
--- NOTE | 2024-10-30 13:35 | PCPTNOTE ---
Cancelled session. Pt reports that she hurts too bad and cannot get up.
--- NOTE | 2024-11-21 14:14 | OPREHPOC ---
Outpatient Therapy Plan of Care This is a Multidisciplinary Plan of Care that may contain components documented by all disciplines (PT, OT, and ST.) PT Problem 1 PT Problem #1 Knowledge Deficit PT Goal 1 Goal / Goal Update 1. independent and compliant with HEP Target Visit 6 Progress Met PT Problem 2 PT Problem #2 Impaired Strength PT Goal 1 Goal / Goal Update 1. improve L hip strength to 4+/5 or better overall 2. improve R knee strength to 5/5 overall Target Visit 12 Progress Met PT Problem 3 PT Problem #3 Impaired Balance PT Goal 1 Goal / Goal Update 1. low fall risk noted by 5x sit to stand completion in less than 15 seconds -not met 2. low fall risk per the tinetti -met 3. LAWRENCE to display 4 point or better improvement - met Target Visit 12 Progress Partially Met PT Problem 4 PT Problem #4 Impaired Functional Mobility PT Goal 1 Goal / Goal Update 1. no falls since being a patient in skilled PT 2. patient to report feeling more confident walking 3. no scissoring gait episodes noted during the last week of PT Target Visit 12 Progress Met
--- NOTE | 2024-11-21 14:14 | PTOPDC ---
Assessment and note entered by Ирина Hawthorne, PT Evaluation Information Assessment Status Discharge ICD-10 Condition Codes (PT) Abnormalities of gait and mobility R26.9 Subjective Information Evelyn reports her strength has improved since starting therapy but doesn't notice any changes in her balance. Reported Pain Level Pain Score 0: Self Report Assessment PT Clinical Summary Mrs. Silva has attended 10 total skilled physical therapy visits addressing imbalance and LE strengthening. Since beginning therapy she's made good progress in her lower extremity strength. Despite not feeling like her balance improved, she also demonstrated progress in TUG, Estevez, and Tinetti balance assessments. She has been independent in her HEP. She has met or partially met all therapeutic goals set for her and therefore skilled PT intervention is no longer indicated. She has been referred to our local fall prevention class to continue working on her balance and maintaining functional status. Plan of Care PT Services Indicated No
== END 2024-11-21 14:58 | disposition home or self-care (01) ==
LOC: CHSPT 08:11
PROVIDERS: PCP Family Medicine; Visit Provider Nurse Practitioner Family
DX: R42 Dizziness and giddiness (principal); R26.81 Unsteadiness on feet
CPT/HCPCS: 97110; 97112; 97161; 97530; 97750

== ENCOUNTER 2025-01-19 12:10 | Outpatient (CLI) | payer MEDICARE, SELFPAY ==
[2025-01-19 12:49] LABS: Add Urine Microscopic? NO; Appearance Urine Clear (Clear); Bilirubin Urine Negative (Negative); Blood Urine Negative (Negative); Color Urine Light Yellow (Yellow); Glucose Urine UA 3+ (Negative); Ketones Urine Negative (Negative); Leukocyte Esterase Ur Negative LEU/UL (Negative); Nitrate Urine Negative (Negative); Protein Urine Negative (Negative); Urobilinogen Urine 0.2 mg/dL (0.2-1.0); pH Urine 5.5 (5.0-8.0)
--- OUTSIDE RECORDS SUMMARY | 2025-01-19 13:27 | XMS_ITS | Clinical Summary ---
Author Organization [facility] Address 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
--- OUTSIDE RECORDS SUMMARY | 2025-01-19 13:27 | XMS_ITS | Data Portability ---
Author Organization [place] - [facility] [employer], Main Office Address [address] [place] [address] Care Team Providers Care Residential Instructor Name Role Phone ERIC HANSEN Primary Care Provider ONEYDA YOUNG OTHER [phone] Assessment Encounter Date Assessment Date Assessment LastModified [...] contrast - December schedule after 01/2023 approved [id number] 02/01/2023-1 10/01/20222022 023 [facility] (Imaging), [address] [place] [address], [address], 3 18:43:10 Medication Orders clonazepam 0.5 mg tablet 2022 023 [email or web address] [facility], [address] [place], [address], 16:52:36 Patient TargetsNo targets recorded. Patient InstructionsNo instructions recorded. Reason for Referral None Reported. Results Created Date Observation Date Name Description Value Unit Range Abnormal Flag Note LastModifiedBy Organization Detail LastModifiedTime 06/23/20 22 06/16/2022 compl ete PFT w/ post [facility] hodil ator robert metry * No observ ation record ed. [id number] [facility] [address], [place], [address], 10/11/2022 01:25:28 02/07/20 23 02/06/2023 CT, chest , w/o contr ast No observ ation record ed. [email or web address] [facility] (Imaging) [address] [place], [address], 02/15/2023 14:10:49 Result Notes None recorded. Problems Name Problem SNOMED Code Status Onset Date Resolution Date Notes Provider Name and Address Organization Details Recorded Time Acute bronchitis 97434495 Active 2018 Not Available [facility] 3 01:17:20 Bronchiectasi s 22177239 Active 2018 Not Available [facility] 3 01:17:20 Chronic obstructive pulmonary disease 81142870 Active 2021 Not Available [facility] 3 01:17:20 Mixed sleep apnea 663628613 Active 2020 Not Available [facility] 3 01:17:20 Anterior epistaxis 296010857 Active 2021 Not Available [facility] 3 01:17:20 Anemia 232948646 Active 2021 Not Available [facility] 3 01:17:20 Persistent cough 063497447 Active 2018 Not Available [facility] 3 01:17:20 Mild chronic obstructive pulmonary disease 848500560 Active 2021 Not Available [facility] 3 01:17:20 Periodic limb movement disorder 815429232 Active Not Available [facility] 3 01:17:20 Multiple nodules of lung 040647984 Active 2021 Not Available [facility] 3 01:17:20 Acute exacerbation of bronchiectasi s 652368936 Active 2021 Not Available [facility] 3 01:17:20 Cough 20278122 Active 2021 Not Available [facility] 3 01:17:20 Allergic rhinitis 65167540 Active Not Available [facility] 3 01:17:21 Obstructive sleep apnea syndrome 21956345 Active 2021 Not Available [facility] 3 01:17:21 Fatigue 36278028 Active Not Available [facility] 3 01:17:21 Notes:plastic in chest Problem Notes None recorded. Medical Equipment None Reported. Allergies Allergen ID Allergen Name Allergen Category Reaction Reaction Severity Criticality Documentation Date Start Date Code Code System Note Provider Name and Address Organization Details Recorded Time 2278 wheat preparati on food,medi cation Not available Not available Not available 10/11/2022 45435 52 RxNorm Not Available [facility] 3 01:24:55 2279 wheat gluten extract food Not available Not available Not available 10/11/2022 64068 81 RxNorm Not Available [facility] 3 01:24:55 Medications Name Sig Start Date [...] completed Not Available Not Available Not Available [facility] 3 120 mg-180 mg-1000 mg capsule Take [...] Available Not Available Vitals Date Recorded Body height Body mass index (BMI) Body weight Body temperature Heart rate Oxygen saturation Oxygen saturation in Arterial blood by Pulse oximetry Systolic blood pressure Diastolic blood pressure Provider Name and Address Organization Details Last Updated DateTime 3 175.26 cm 26.4 kg/m2 00001.0 3 g 97.2 [degF] 87 /min 98 % 98 % 102 mm[Hg] 64 mm[Hg] [facility] [employer] 3 15:26:05 Date Recorded Body height Body mass index (BMI) Body weight Body temperature Heart rate Oxygen saturation Oxygen saturation in Arterial blood by Pulse oximetry Systolic blood pressure Diastolic blood pressure Provider Name and Address Organization Details Last Updated DateTime 3 175.26 cm 26 kg/m2 08476.2 6 g 96.7 [degF] 90 /min 96 % 96 % 120 mm[Hg] 60 mm[Hg] Jewell Haynes MA [facility] [employer] 3 15:53:46 Date Recorded Body height Body mass index (BMI) Body weight Heart rate Oxygen saturation Oxygen saturation in Arterial blood by Pulse oximetry Systolic blood pressure Diastolic blood pressure Provider Name and Address Organization Details Last Updated DateTime 3 175.26 cm 25.4 kg/m2 34950.1 7 g 70 /min 96 % 96 % 166 mm[Hg] 66 mm[Hg] [facility] [employer] 3 14:54:16 Date Recorded Body mass index (BMI) Body height Oxygen saturation Oxygen saturation in Arterial blood by Pulse oximetry Heart rate Body temperature Body weight Systolic blood pressure Diastolic blood pressure Provider Name and Address Organization Details Last Updated DateTime 2 25.7 kg/m2 175.26 cm 98 % 98 % 66 /min 97.8 [degF] 56657.0 7 g 120 mm[Hg] 60 mm[Hg] Not Available [facility] 3 01:12:21 Date Recorded Body mass index (BMI) Body height Oxygen saturation Oxygen saturation in Arterial blood by Pulse oximetry Heart rate Body temperature Body weight Systolic blood pressure Diastolic blood pressure Provider Name and Address Organization Details Last Updated DateTime 2 27.2 kg/m2 175.26 cm 97 % 97 % 68 /min 96.3 [degF] 15390 g 128 mm[Hg] 60 mm[Hg] Not Available [facility] 01:12:21 Social History Question Answer Notes LastModified by [employer] Details LastModified Time Tobacco Smoking Status Never Smoker VANESA Kaufman [facility] [employer] 10/30/2022 15:28:33 What Is Your Level Of Caffeine Consumption? Moderate One Cup Everyday [email or web address] Information not available 10/30/2022 In The 14 Days Before Symptom Onset, Have You Had Close Contact With A Laboratory-confir med COVID-19 While That Case Was Ill? No [id number] Information not available 10/11/2022 In The 14 Days Before Symptom Onset, Have You Had Close Contact With A Person Who Is Under Investigation For COVID-19 While That Person Was Ill? No [id number] Information not available 10/11/2022 Do You Have Any Pets? Yes [email or web address] Information not available 10/30/2022 Sex: Unknown Functional Status Question Answer Note LastModified by [employer] Details LastModified Time Do you use any illicit or recreational drugs? No [email or web address] Information not available 10/30/2022 What is your level of alcohol consumption? 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 Family History Nothing Reported. Medical History No medical history recorded. Gynecological HistoryNo gynecological history recorded. Obstetrics History GPAL:G 0 P 0 0 0 0 Immunizations Vaccine Type Date Status Note Provider Nam e and Address Organization Details Recorded Time Influenza, split virus, quadrivalent, preservative 0 completed Not Available [facility] 10/11/2022 01:24:35 pneumococcal polysaccharide PPV23 7 completed Not Available [facility] 10/11/2022 01:24:35 Pneumococcal conjugate PCV 13 6 completed Not Available [facility] 10/11/2022 01:24:35 Past Encounters Encounter ID Performer Location Encounter Start Date Encounter Closed Date Diagnosis/Indication Diagnosis SNOMED-CT Code Diagnosis ICD10 Code Diagnosis Note [id number] [facility] [place] [address] [place] [address] 02/07/2021 00:00:00 02/07/2021 15:58:49 [id number] [facility] [place] [address] [place] [address] 06/13/2021 00:00:00 06/13/2021 15:37:03 [id number] [facility] [place] [address] [place] [address] 09/19/2021 00:00:00 09/19/2021 16:25:23 [id number] [place] [facility] [place] [address] [place] [address] 02/01/2022 00:00:00 02/01/2022 16:03:40 [id number] [place] [facility] [place] [address] [place] [address] 06/19/2022 00:00:00 06/19/2022 23:03:15 [id number] [place] [facility] [place] [address] [place] [address] 07/31/2022 00:00:00 07/31/2022 17:00:28 [id number] [place] [facility] [place] [address] [place] [address] 10/30/2022 15:12:30 10/30/2022 18:36:08 Bronchiectasis 51642163 J47.9 MildINstru cted on compliant flutter valve useCheck CT chest Obstructiv e sleep apnea syndrome 28880612 G47.33 She has not been compliant with machineUna ble to determine correction Discussed the risks of uncorrecte d NAI Mild chron ic obstructive pulmonary disease 991069541 J44.9 PFT in [facility] maintenanc e inhaled therapyAlb uterol PRNDIscuss ed indication s for useINstruc baljeet on technique Periodic l imb movement disorder 609706739 G47.61 Continue Ropinirole 1.25mg and clonazepam 0.5mg [id number] Jodie Hess [facility] [place] [address] [place] [address] 02/21/2023 15:45:29 02/21/2023 16:33:12 Bronchiectasis 60701564 J47.9 Mild per last CTInstruct ed on compliant flutter valve useCurrent CT chest with no evidence of this Obstructiv e sleep apnea syndrome 01917298 G47.33 She has not been compliant with machineUna ble to determine correction Discussed the risks of uncorrecte d NAI, including Mild chron ic obstructive pulmonary disease 518824479 J44.9 [facility] e inhaled therapyAlb uterol PRNDiscuss ed indication s for useInstruc baljeet on technique Periodic l imb movement disorder 917228193 G47.61 Continue Ropinirole 1.25mg and clonazepam 0.5mg [id number] Jodie Hess [facility] [place] [address] [place] [address] 04/24/2023 14:35:46 04/24/2023 16:40:32 Bronchiectasis 96214127 J47.9 Mild per last CTInstruct ed on compliant flutter valve useCurrent CT chest with scarring/a telectasis as well to LLL Obstructiv e sleep apnea syndrome 24920825 G47.33 She has not been 100% compliant with machineUna ble to determine correction Discussed the risks of uncorrecte d NAI, including Mild chron ic obstructive pulmonary disease 397160809 J44.9 PFT in chart - ratio 65% and FEV1 90%Decline s maintenanc e inhaled therapyAlb uterol PRNDiscuss ed indication s for useInstruc baljeet on technique Periodic l imb movement disorder 421568386 G47.61 Continue Ropinirole 1.25mg (PCM RX) and clonazepam 0.5mg Health Concerns Section Related Observation LastModified by Organization Detai ls LastModified Time None Recorded Concern Status LastModified by Organization Details LastModified Time None Recorded Advance Directives Directive None Recorded Payers Encounter Date Sequence Insurance Name Policy Number Policy [place] Covered Member ID [place] Member ID Guarantor Name 10/30/2022 1 [employer] (MEDICARE REPLACEMENT/ ADVANTAGE - PPO) [id number] Diane Redding Ahring [id number] Diane Redding Ahring 02/21/2023 1 [employer] (MEDICARE REPLACEMENT/ ADVANTAGE - PPO) [id number] Diane L Ahring [id number] Diane L Ahring 04/24/2023 1 [employer] (MEDICARE REPLACEMENT/ ADVANTAGE - PPO) [id number] Diane L Ahring [id number] Diane L Ahring Notes Date Note Type Note Provider Name [...] scheduled for cardioversion next week. Jodie Hess, [facility]- [address], [facility] [address], [place], [address], [facility] [employer] 10/30/2022 21:47:05 02/21/2023 text/html Evelyn presents today to follow up on cough, dyspnea, PLMD, NAI, fatigueShgabrielle has been [address] this yearShe has been unable to tolerate her PAP R/T coughShe is using this some nightsContinues to endorse [...] month ago. [place] [facility] [address], [facility] [address], [place], [address], [facility] 02/21/2023 22:40:14 04/24/2023 text/html Evelyn presents today to follow up on cough, dyspnea, PLMD, NAI, fatigueShgabrielle has been wearing her PAP most nights but has some irritation to her nares.Continues to endorse significant fatigue and restless sleepMild improvement in restless legs and sleep disturbances.She got an iron infusion but tells me it did not work well enough, she has to go to [place] for a new type of infusionPAP mask is comfortable, she does not wake due to leak or discomfort.Energy levels are poorNot using any inhalers, does have rescue MDI, she has never gotten clinical benefit from inhaled therapyShe has not had a respiratory illness in over a year.Cough remains most days, endorses sinus drainage [place] [facility] [address], [facility] [address], [place], [address], [facility] 04/24/2023 16:29:50 OBGyn Episode No OBEpisode recorded.
== END 2025-01-19 12:11 | disposition home or self-care (01) ==
LOC: CHSLAB 12:11
PROVIDERS: PCP Family Medicine; Visit Provider Nurse Practitioner Family
DX: R39.9 Unspecified symptoms and signs involving the genitourinary system (principal)
CPT/HCPCS: 81003

== ENCOUNTER 2025-02-16 14:31 | Outpatient (CLI) | payer MEDICARE, SELFPAY ==
--- OUTSIDE RECORDS SUMMARY | 2025-02-16 14:34 | XMS_ITS | Clinical Summary ---
Author Organization [facility] Address [address] [place] [address] Care Team Providers Care Rehabilitation Therapy Technician Name Role Phone Unavailable Primary Care Provider Unavailabl e Source Comments [facility],non-owned Affiliates and Associated Physician Practices is amultiple site organization consisting of ambulatory clinics and hospital sitesin [place], [place], [place] and [place]. This disclosure is being madepursuant to the Care Everywhere program and may not contain all information available regarding this patient. Last updated 18.[facility] [employer] Allergies Active Allergy Reactions Criticality Noted Date Comments Gluten Meal Diarrhea Medium 06/15/2018 Wheat Bran Diarrhea Low 12/31/2012 Medications * Be aware that medications may not be up to date on this document. Alwaysverify current medications with the patient. albuterol HFA (PROVENTIL; VENTOLIN; PROAIR) 108 (90 Base) MCG/ACT inhaler as directed 09/19/2021 Active carvedilol (COREG) 12.5 MG tablet 6.25 mg once daily as needed 12/29/2021 Active clonazePAM (KLONOPIN) 1 MG tablet 1 mg at bedtime 11/01/2021 Active clopidogrel (PLAVIX) 75 MG tablet 75 mg once daily 11/01/2021 Active furosemide (LASIX) 40 MG tablet 40 mg 2 times daily 04/21/2021 Active Glucosamine-Cho ndroitin 8152-5520 MG/30ML Take 1,500 mg by mouth 2 [...] MG tablet 100 mg once daily 12/29/2021 Active valACYclovir (VALTREX) 1 GM tablet as needed Active Ascorbic Acid 500 MG once daily Active Probiotic Product (PROBIOTIC PO) Take by mouth [...] 02/07/2022 Polyarthralgia 02/07/2022 GERD (gastroesophageal reflux disease) Family History Medical History Relation Name Comments Other Father Stroke Other Mother COPD Other Sister Asthma,Heart is sues,Thyroid issues,RLS, Relation Name Status Comments Father Mother Sister Alive Social History Tobacco Use Types Packs/Day Years Used Date Smoking Tobacco: Never Smokeless Tobacco: Never Alcohol Use Standard Drinks/Week Comments Yes 0 (1 standard drink = 0.6 oz pur e alcohol) Rarely Comments No Sex and Gender Information Value Date Recorded Sex Assigned at Not on file Legal Sex Female 12:49 PM CDT Gender Identity Not on file Sexual Orientation Not on file Occupation Industry Job Start Date Job End Date Retired Not on file Not on file Not on file Last Filed Vital Signs Vital Sign Reading Time Taken Comments Blood Pressure 163/83 02/07/2022 10:43 AM CDT Pulse 58 02/07/2022 10:43 AM CDT Temperature - - Respiratory Rate - - Oxygen Saturation - - Inhaled Oxygen Concentration - - Weight 70.3 kg (155 lb) 02/07/2022 10:43 AM CDT Height 174 cm (5' 8.5) 02/07/2022 10:43 AM CDT Body Mass Index [...] - 1-dose 75+ series) 2021 COVID-19 VACCINE ( - season) 2024 DEPRESSION SCREENING 08/13/2024 MEDICARE AWV CALENDAR YEAR 2024 INFLUENZA VACCINE (#1) 2025 , 04/13/2020, 05/15/2019, Additional history exists HEPATITIS B VACCINE Aged Out No longe r eligible based on patient's age to complete this topic HIB VACCINE Aged Out No longer eligi ble based on patient's age to complete this topic HPV VACCINE Aged Out No longer eligi ble based on patient's age to complete this topic MENINGOCOCCAL (Group B) VACCINE SHARED DECISION-MAKING Aged Out No longer eligible based on patient's age to complete this topic MENINGOCOCCAL GROUPS A/C/Y/W VACCINE Aged Out No longer eligible based on patient's age to complete this topic Insurance [facility] MANAGED MEDICARE ADV [facility] MANAGED MEDICARE ADV [employer]ET[employer] MEDICARE ADV AETNA MEDICARE ADV
--- OUTSIDE RECORDS SUMMARY | 2025-02-16 14:34 | XMS_ITS | Clinical Summary ---
Author Organization [facility] Address 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
--- OUTSIDE RECORDS SUMMARY | 2025-02-16 14:34 | XMS_ITS | Encounter Summary ---
Author Organization [facility] Address Formerly [facility] [place] [address] Care Team Providers Care Conditioner Tumbler Operator Name Role Phone Yousif Benton MD Primary Care Provider [phone] Micheal Burton MD Primary Care Provider [phone] Tera Seals DO Primary Care Provider [phone] Encounter Details Date Type Department Care Team (Late st Contact Info) Description 01/18/2019 Abstract SFL CONVERSION [address] [place] [address] , Generic ConversionMD Social History Tobacco [...] on filedocumented in this encounter Care Teams Conditioner Tumbler Operator Relationship Specialty Start Date End Date Yousif Benton MD [address] [place] [address] PCP - General FAMILY PRACTICE 04/18/19 09/12/20 Micheal Burton MD [address] [place] [address] PCP - General FAMILY PRACTICE 09/13/20 07/31/22 Tera Seals DO [address] [place] [address] PCP - General FAMILY PRACTICE 08/01/22 documented as of this encounter
--- OUTSIDE RECORDS SUMMARY | 2025-02-16 14:34 | XMS_ITS | Clinical Summary ---
Author Organization [facility] Address [address] [place] [address] Care Team Providers Care Box Packer Name Role Phone Tera Seals DO Primary Care Provider [phone] Allergies Active Allergy Reactions Criticality Noted Date Comments Gluten Meal Diarrhea 06/15/2019 Medications Calcium Carbonate-Vit D-Min (CALCIUM 1200) 2012-8405 MG-UNIT Chew Tab 10/02/2017 Active Ascorbic Acid [...] for preventive health examination 09/15/2013 04/23/2020 Immunizations Immunization Administration Dates Next Due Influenza Adult (Generic) [...] Comments Blood Pressure 154/93 08/05/2022 6:22 AM HEADING AND PRIMING TOOL SETTER Pulse 83 08/05/2022 6:22 AM HEADING AND PRIMING TOOL SETTER Temperature 36.6 C (97.9 F) 08/05/2022 6:22 AM HEADING AND PRIMING TOOL SETTER Respiratory Rate 20 08/04/2022 7:42 PM HEADING AND PRIMING TOOL SETTER Oxygen Saturation 92% 08/05/2022 6:22 AM HEADING AND PRIMING TOOL SETTER Inhaled Oxygen Concentration - - Weight 83.3 kg (183 lb 10.3 oz) 08/02/2022 2:14 AM HEADING AND PRIMING TOOL SETTER Height 172.7 cm (5' 8) 08/02/2022 2:14 AM HEADING AND PRIMING TOOL SETTER Body Mass Index 27.92 08/02/2022 2:14 AM HEADING AND PRIMING TOOL SETTER Plan of Treatment Health Maintenance Due Date Last Done Comments Hepatitis C 1963 DTaP, Tdap and Td Vaccines ( 1 - Tdap) 1965 Zoster Vaccines (1 of 2) 1996 Annual Medicare Wellness Visit 2011 RSV Immunization or 60+ Years (1 - 1-dose 75+ series) 2021 COVID-19 Vaccine (2023-2 5 season) 2024 Pneumococcal Vaccine: 50+ Years Completed 07/31/2017, 06/29/2016 Dexa Scan (General) [...] transitions and discharge planning Lifestyle No Hilda Sainz RN Patient will return to prior living situation and remain independent in ADLs upon discharge from hospital Lifestyle No Hilda Sainz RN Safety Patient/family will have appropriate support at home upon discharge Lifestyle Yes Hilda Sainz RN Procedures Procedure Name Priority Date/Time Associated Diagnosis Comments COLONOSCOPY Routine 08/04/2022 8:56 AM HEADING AND PRIMING TOOL SETTER BONE DENSITY/DEXA Routine 01/16/2022 3:1 9 PM CDT Osteoporosis, senile from Last 3 Months or Most Recently Relevant to Health Maintenance Results * Colonoscopy (08/04/2022 8:56 AM HEADING AND PRIMING TOOL SETTER) us Meena Oneill NP GI PROCEDURE ORDERABLES [...] Sexton MD, 01/16/2022 4:41 PM us Brigida Hannon APNP DEXA Final Resul t from Last 3 Months or Most Recently Relevant to Health Maintenance Insurance MED [facility] MEDICARE MED [facility] MEDICARE [place] [id number] Advance Directives * Full Code (Latest Code Status on File) Date Activated Date Inactivated Comments 08/02/2022 2:49 AM 08/05/2022 3:20 PM * Full Code Date Activated Date Inactivated Comments 06/03/2020 9:28 PM 06/04/2020 3:31 PM Care Teams Box Packer Relationship Specialty Start Date End Date Tera Seals DO [address] [place] [address] PCP - General FAMILY PRACTICE 08/01/22
--- NOTE | 2025-02-16 14:51 | ECG_ITS ---
Test Date: 2025-02-16 15:08:02 Measurements Intervals [place] Rate: 70 P: 57 OH: 179 QRS: 31 QRSD: 94 T: 96 QT: 440 QTc: 476 Interpretive Statements SINUS RHYTHM WITH FREQUENT VENTRICULAR PREMATURE COMPLEXES CANNOT RULE OUT PREVIOUS SEPTAL INFARCTION ABNORMAL ECG No previous ECG available for comparison Electronically Signed On 02-18-2025 07:56:59 CDT by Freddy Barragan M.D.
[2025-02-16 15:38] LABS: Alanine Aminotransferase 22 U/L (6-35); Albumin Level 4.5 g/dL (3.5-5.1); Alkaline Phosphatase 110 U/L (38-126); Anion Gap 8 mmol/L (4-12); Aspartate Amino Transferase 35 U/L (14-36); Bilirubin,Total 1.0 mg/dL (0.2-1.3); Blood Urea Nitrogen 38 mg/dL (7-17); Calcium 9.1 mg/dL (8.4-10.2); Carbon Dioxide 26 mmol/L (22-30); Chloride 104 mmol/L (98-107); Estimated Glomerular Filt Rate 31; Glucose 106 mg/dL (65-110); Iron 91 ug/dL (37-170); Magnesium 2.6 mg/dL (1.6-2.3); Osmolality Calculated 295 mOsm/kg (285-295); Potassium 4.6 mmol/L (3.4-5.0); Sodium 138 mmol/L (137-145); Total Protein 7.2 g/dL (6.3-8.2)
[2025-02-16 15:42] LABS: Add Urine Microscopic? YES; Appearance Urine Clear (Clear); Glucose Urine UA 1+ (Negative); Leukocyte Esterase Ur 1+ LEU/UL (Negative); Nitrate Urine Positive (Negative); Specific Grav Ur <= 1.005 (1.010-1.020)
[2025-02-16 15:47] LABS: Percent Iron Saturation 29 % (20-50)
[2025-02-16 15:56] LABS: Free T4 Free Thyroxine 1.44 ng/dL (0.78-2.19)
[2025-02-16 16:09] LABS: Thyroid Stimulating Hormone 0.689 uIU/mL (0.465-4.680)
[2025-02-16 16:13] LABS: Ferritin 66.60 ng/mL (11.1-264)
[2025-02-16 16:29] LABS: Vitamin B12 > 1000.0 pg/mL (239-931)
[2025-02-16 17:07] LABS: Hematocrit 45.3 % (35.0-42.0); Hemoglobin 14.6 g/dL (11.7-13.8); Immature Granulocyte Percent A 0.2 % (0.0-0.0); Immature Platelet Fraction Pct 8.7 % (1.0-7.0); Lymphocytes Absolute Auto 1.05 K/mm3 (1.10-4.50); Mean Corpuscular HGB Conc 32.2 g/dL (32-36); Mean Corpuscular Hemoglobin 32.7 pg (27.0-31.0); Mean Corpuscular Volume 101.6 fL (78.0-102.0); Nucleated Red Blood Cells Absolute Auto 0.00 K/mm3 (0.00-0.00); Nucleated Red Blood Cells Perc 0.0 % (0-0.0); Platelet Count Result 195 K/mm3 (150-420); Red Blood Count 4.46 M/mm3 (4.20-5.40); White Blood Count 6.2 K/mm3 (4.8-10.8)
[2025-02-18 02:04] LABS: Total Triiodothyronine (T3) 58 ng/dL (76-181)
[2025-02-19 19:05] LABS: Babesia duncani (WA1) AB IgG 1:256
[2025-02-20 21:04] LABS: Babesia microti AB IgG <1:64 titer; Babesia microti AB IgM <1:20 titer
== END 2025-02-16 14:32 | disposition home or self-care (01) ==
LOC: CHSLAB 14:32
PROVIDERS: PCP Family Medicine; Visit Provider Nurse Practitioner Family
DX: D64.9 Anemia, unspecified (principal); R79.89 Other specified abnormal findings of blood chemistry; E03.9 Hypothyroidism, unspecified; R53.83 Other fatigue; Z79.899 Other long term (current) drug therapy; I25.2 Old myocardial infarction
CPT/HCPCS: 36415; 80053; 81001; 82306; 82607; 82728; 83540; 83550; 83735; 84439; 84443; 84480; 85025; 85055; 86618; 86666; 87077; 87086; 87088; 87186; 93005

== ENCOUNTER 2025-03-21 13:11 | Outpatient (CLI) | payer MEDICARE, SELFPAY ==
--- OUTSIDE RECORDS SUMMARY | 2025-03-21 13:13 | XMS_ITS | Encounter Summary ---
Author Organization [facility] Address [facility] [place] [address] Care Team Providers Care Mental Health Counselor Name Role Phone Yousif Benton MD Primary Care Provider [phone] Micheal Burton MD Primary Care Provider [phone] Tera Seals DO Primary Care Provider [phone] Encounter Details Date Type Department Care Team (Late st Contact Info) Description 01/18/2019 Abstract SFL CONVERSION [address] [place] [address] , Generic ConversionMD Social History Tobacco [...] on filedocumented in this encounter Care Teams Mental Health Counselor Relationship Specialty Start Date End Date Yousif Benton MD [address] [place] [address] PCP - General FAMILY PRACTICE 04/18/19 09/12/20 Micheal Burton MD [address] [place] [address] PCP - General FAMILY PRACTICE 09/13/20 07/31/22 Tera Seals DO [address] [place] [address] PCP - General FAMILY PRACTICE 08/01/22 documented as of this encounter
--- OUTSIDE RECORDS SUMMARY | 2025-03-21 13:13 | XMS_ITS | Clinical Summary ---
Author Organization [facility] Address [address] [place] [address] Care Team Providers Care Programmer Numerical Control Name Role Phone Unavailable Primary Care Provider Unavailabl e Source Comments [facility],non-owned Affiliates and Associated Physician Practices is amultiple site organization consisting of ambulatory clinics and hospital sitesin [place], [place], [place] and [place]. This disclosure is being madepursuant to the Care Everywhere program and may not contain all information available regarding this patient. Last updated 18.[facility] [employer] Allergies Active Allergy Reactions Criticality Noted Date [...] 2 times daily 04/21/2021 Active Glucosamine-Cho ndroitin 4599-8840 MG/30ML Take 1,500 mg by mouth 2 [...] patient's age to complete this topic Insurance [facility] MANAGED MEDICARE ADV [facility] MANAGED MEDICARE ADV [employer] MEDICARE ADV AETNA MEDICARE ADV
--- OUTSIDE RECORDS SUMMARY | 2025-03-21 13:13 | XMS_ITS | Clinical Summary ---
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
--- OUTSIDE RECORDS SUMMARY | 2025-03-21 13:13 | XMS_ITS | Clinical Summary ---
Author Organization [facility] Address [address] [place] [address] Care Team Providers Care Sql Programmer Name Role Phone Tera Seals DO Primary Care Provider [phone] Allergies Active Allergy Reactions Criticality Noted Date Comments Gluten Meal Diarrhea 06/15/2019 Medications Calcium Carbonate-Vit D-Min (CALCIUM 1200) 3411-5828 MG-UNIT Chew Tab 10/02/2017 Active Ascorbic Acid [...] Comments Blood Pressure 154/93 08/05/2022 6:22 AM CORE MAKER HELPER Pulse 83 08/05/2022 6:22 AM CORE MAKER HELPER Temperature 36.6 C (97.9 F) 08/05/2022 6:22 AM CORE MAKER HELPER Respiratory Rate 20 08/04/2022 7:42 PM CORE MAKER HELPER Oxygen Saturation 92% 08/05/2022 6:22 AM CORE MAKER HELPER Inhaled Oxygen Concentration - - Weight 83.3 kg (183 lb 10.3 oz) 08/02/2022 2:14 AM CORE MAKER HELPER Height 172.7 cm (5' 8) 08/02/2022 2:14 AM CORE MAKER HELPER Body Mass Index 27.92 08/02/2022 2:14 AM CORE MAKER HELPER Plan of Treatment Health Maintenance Due Date [...] Diagnosis Comments COLONOSCOPY Routine 08/04/2022 8:56 AM CORE MAKER HELPER BONE DENSITY/DEXA Routine 01/16/2022 3:1 9 PM CDT Osteoporosis, senile from Last 3 Months or Most Recently Relevant to Health Maintenance Results * Colonoscopy (08/04/2022 8:56 AM CORE MAKER HELPER) us Meena Oneill NP GI PROCEDURE ORDERABLES [...] Relevant to Health Maintenance Insurance MED REPLACE [facility] MEDICARE [facility] MEDICARE [place] [id number] Advance Directives * Full Code (Latest Code Status on File) Date Activated Date Inactivated Comments 08/02/2022 2:49 AM 08/05/2022 3:20 PM * Full Code Date Activated Date Inactivated Comments 06/03/2020 9:28 PM 06/04/2020 3:31 PM Care Teams Sql Programmer Relationship Specialty Start Date End Date Tera Seals DO [address] [place] [address] PCP - General FAMILY PRACTICE 08/01/22
[2025-03-21 15:14] LABS: Thyroid Stimulating Hormone Reflex 1.840 uIU/mL (0.465-4.68)
== END 2025-03-21 13:12 | disposition home or self-care (01) ==
LOC: CHSLAB 13:12
PROVIDERS: PCP Family Medicine; Visit Provider Family Medicine
DX: E03.9 Hypothyroidism, unspecified (principal)
CPT/HCPCS: 36415; 84443

== ENCOUNTER 2025-03-27 17:36 | Emergency (ER) | payer MEDICARE, SELFPAY ==
[2025-03-27] VITALS (25 sets, daily range): BP systolic 88–138; BP diastolic 62–90; PULSE 71–87; RESP 13–23; TEMP 36.3–36.6; O2SAT 91–98
--- NOTE | ~2025-03-27 | CT_ITS ---
CLINICAL INDICATION: Upper abdominal pain, nausea/vomiting and diarrhea. COMPARISON: 10/30/2023. TECHNIQUE: Multiple contiguous axial images of the abdomen and pelvis were performed without the admi nistration of intravenous contrast The dose-length product (DLP) was 482.05 mGy-cm. Automated exposure control and iterative reconstruction technique were employed. FINDINGS/OBSERVATIONS: Visualized lower thorax: Bibasilar atelectasis. The remainder of the bilateral lung bases are clear. The heart is enlarged, without pericardial effusion. Small hiatal hernia is present. Liver: The liver demonstrates homogeneous attenuation and is not enlarged. Gallbladder and biliary system: The gallbladder is distended, with wall thickening and surrounding inflammation. Pancreas: Limited evaluation of the pancreas secondary to the lack of intravenous contrast. Spleen: The spleen demonstrates homogeneous attenuation and is not enlarged. Kidneys: The right kidney is markedly atrophic and calcified, unchanged from prior. The left kidney demonstrates mild hydroureteronephrosis without an obstructing stone. Exophytic from the upper pole of the left kidney is a focus of fluid attenuation, statistically a cys t and unchanged from prior. Adrenal glands: Unremarkable. Gastrointestinal tract: Mural thickening of the distal esophagus and proximal stomach, with trace surrounding inflammatory ch aristides. Edematous mural thickening throughout the entirety of the colon, most prominent within the splenic fl exure, and rectum with surrounding inflammatory change. The inflammation and infiltration of the anayeli colonic fat is largely unchanged from previous examination dated 10/30/2023, possibly secondary to pat ient's rheumatoid arthritis and its effect the GI system, commonly causing inflammatory change. Appendix: The appendix is not definitively visualized. However, no pericecal inflammatory change is identified suggest the presence of acute appendicitis. Vasculature: Densely calcified atherosclerotic disease. Lymph nodes: No pathologically enlarged or morphologically suspicious lymph nodes within the retroperitoneum or at the root of the mesentery. Pelvic structures: The bladder is distended, and otherwise unremarkable. The uterus is anteverted and anteflexed, and otherwise unremarkable. Body wall and musculoskeletal: Small fat-containing umbilical hernia. Significant degenerative disease within the lumbosacral spine most prominent at the level of L5/S1 wi th osteophyte formation, disc space narrowing, endplate changes and facet arthropathy. This appearanc e and distribution is unchanged from 2023 examination. IMPRESSION: Gallbladder distention with mural thickening and surrounding inflammatory change. Edematous mural thickening within nearly the entirety of the colon with surrounding inflammatory chawla ge, similar in appearance to previous examination performed in October of 2023, possibly secondary to p atient's known rheumatoid arthritis, as detailed above. No obstruction. Reviewed, dictated and finalized at location A. IMPRESSION: Gallbladder distention with mural thickening and surrounding inflammatory castle e. Edematous mural thickening within nearly the entirety of the colon with surroun ding inflammatory change, similar in appearance to previous examination perform ed in October of 2023, possibly secondary to patient's known rheumatoid arthritis , as detailed above. No obstruction.
--- OUTSIDE RECORDS SUMMARY | 2025-03-27 17:38 | XMS_ITS | Clinical Summary ---
Author Organization [facility] Address [address] [place] [address] Care Team Providers Care Title Camera Operator Name Role Phone Unavailable Primary Care Provider Unavailabl e Source Comments [facility],non-owned Affiliates and Associated Physician Practices is amultiple site organization consisting of ambulatory clinics and hospital sitesin [place], [place], [place] and [place]. This disclosure is being madepursuant to the Care Everywhere program and may not contain all information available regarding this patient. Last updated 18.[facility] [place] Allergies Active Allergy Reactions Criticality Noted Date [...] 2 times daily 04/21/2021 Active Glucosamine-Cho ndroitin 5703-4792 MG/30ML Take 1,500 mg by mouth 2 [...] patient's age to complete this topic Insurance [facility] MANAGED MEDICARE ADV [facility] MA[facility]GED MEDICARE ADV AETNA MEDICARE ADV AETNA MEDICARE ADV
--- OUTSIDE RECORDS SUMMARY | 2025-03-27 17:38 | XMS_ITS | Clinical Summary ---
Author Organization [facility] Address [address] [place] [address] Phone Care Team Providers Care Certified Family Mediator Name Role Phone Unavailable Primary Care Provider Unavailabl e Social History Tobacco Use Types Packs/Day Years Used Date Smoking Tobacco: Never Assessed Comments Unknown Sex and Gender Information Value Date Recorded Sex Assigned at Not on file Legal Sex Female 3:14 PM PALLIATIVE CARE NURSE PRACTITIONER Gender Identity Not on file Sexual Orientation Not on file Plan of Treatment Not on file
--- NOTE | 2025-03-27 17:49 | ED_ITS ---
HPI - Nausea/Vomiting/Diarrhea General Chief complaint: Nausea/Vomiting/Diarrhea Stated complaint: diarrhea, dizzy & weak Time Seen by Provider: 03/27/25 17:49 Source: patient Mode of arrival: ambulatory Limitations: no limitations History of Present Illness HPI Narrative: patient is a 79-year-old female with diarrhea for the past 10 days. She had diffuse nonspecific abdominal pain. No nausea vomiting. She was on antibiotics last month. She is on Eliquis for DVT and thrombosis issues. MD elicited complaint: diarrhea Pertinent past history: other ( Rheumatoid arthritis, hypertension, GERD) Onset (ago): day(s) ( head) Description of vomiting: watery and continuous Description of diarrhea: mucus, watery and semi-solid Associated nausea: No Associated abdominal pain: Yes Location of pain: diffuse Radiation: diffuse Pain consistency: intermittent and now resolved Severity: mild Pain scale (0-10): 1 Quality: cramping Exacerbating factors: none Relieving factors: none Context: other ( patient has diarrhea for the past 10 days and minimal abdominal pain without nausea vomiting) Associated symptoms: fatigue Treatment prior to arrival: none Related Data Home Medications ?Medication ?Instructions ?Recorded ?Confirmed ?Last Taken ?Type apixaban 5 mg tablet (Eliquis) 5 mg PO BID 01/11/23 02/16/25 09/01/23 History ascorbic acid (vitamin C) 500 mg 500 mg PO BID 09/02/23 02/16/25 09/01/23 History capsule magnesium 2 tablet PO BID 09/02/23 02/16/25 09/01/23 History octreotide acetate 50 mcg/mL (1 50 mcg subcut BID 09/02/23 02/16/25 09/01/23 History mL) injection syringe clonazepam 1 mg tablet mg PO 05/28/24 02/16/25 Unknown History montelukast 10 mg tablet mg PO 05/28/24 02/16/25 Unknown History torsemide 20 mg tablet mg PO 05/28/24 02/16/25 Unknown History Allergies Allergy/AdvReac Type Severity Reaction Status Date / Time azithromycin AdvReac Redness of Verified 02/16/25 14:05 Skin gluten AdvReac Unknown Verified 02/16/25 14:05 wheat AdvReac Unknown Verified 02/16/25 14:05 Review of Systems 2 Review of Systems: All systems reviewed & are unremarkable except as noted in HPI and below Constitutional: Constitutional: Reports no additional constitutional complaints Eyes: Eyes: Reports no additional eye complaints ENT: Reports system reviewed and no additional complaints, except as documented Cardiovascular: Cardiovascular: Reports no additional cardiovascular complaints Respiratory: Respiratory: Reports no additional respiratory complaints Gastrointestinal: Gastrointestinal: Reports no additional gastrointestinal complaints Genitourinary: Genitourinary: Reports no additional female genitourinary complaints Musculoskeletal: Musculoskeletal: Reports no additional musculoskeletal complaints Integumentary/Breasts: Skin/Breast: Reports system reviewed and no additional complaints, except as docu Neurologic: Reports system reviewed and no additional complaints, except as documented Psychiatric: Psychiatric: Reports no additional psychiatric complaints Endocrine: Endocrine: Reports no additional endocrine complaints Hematologic/Lymphatic: Hematologic/Lymphatic: Reports no additional hematologic/lymphatic complaints Allergic/Immunologic: Allergic/Immunologic: Reports no additional allergic/immunologic complaints PMFSH Past Medical History Medical History Rheumatoid arthritis Coronary artery disease Portal vein thrombosis DVT (deep venous thrombosis) Hypertension Hypothyroidism Anxiety GERD (gastroesophageal reflux disease) Celiac disease Gait instability Surgical History Surgical History History of cardiac radiofrequency ablation History of coronary artery stent placement History of appendectomy History of H/O shoulder surgery Family History Family History Father Cerebrovascular accident Social History Social History Smoking status: Never smoker Second hand tobacco smoke exposure: Yes (Parents smoked; smoked, stopped at 27.) Alcohol intake: never Drinks per week: 1 Substance use: never Substance use type: does not use Lack of Transportation: No Lack of Food: Never True Current Housing: I Have Housing Concerned About Future Housing: No Difficulty Paying Gas/Electric Bills: No Difficulty Paying for Meds: No Currently Unemployed: No Education: High School Diploma/GED Difficulty w/ Childcare or Family Care: No Living arrangements: with family Gender identity (if verbalized by the patient): Female Sexual Orientation (if Verbalized by the Patient): Straight or Heterosexual Spiritual care concerns: No Exam 2 Const: General: healthy appearing Nutritional Appearance: well nourished Orientation/consciousness: patient oriented x3 HENMT: Head: normal to inspection Ears: external ears normal F [place]/Nose/Sinus: Normal external nose present Eyes: Conjunctivae: conjunctivae normal Cornea: corneas normal Pupils: E qual, round and reactive pupils present Neck: Neck: normal visual inspection Chest: Chest palpation & inspection: normal inspection of the chest Resp: Effort & Inspection: normal respiratory effort and not labored A uscultation: clear to auscultation bilaterally and no crackles Cardio: Rate: regular rate Rhythm: abnormal rhythm and abnormal rhythm irregularly irregular Heart sounds: no murmurs GI: Inspection: non-distended GI Palp: Yes Soft to palpation, Yes Tenderness to palpation present (GI) ( diffuse and minimal), No Guarding due to palpation present (GI), No Rigid due to palpation, No Hernia present, No Palpable mass present and No Rebound tenderness present Auscultation: normal bowel sounds : General: Yes bladder normal to palpation Back/Spine/Pelvis: Back: no CVA tenderness Skin: General skin exam: normal color Rashes: no rashes Wounds: no wounds Neuro: General: patient oriented x3, moves all extremities and no meningeal signs Extrem: General: normal to inspection Psych: Mental Status: mental status grossly normal Affect: normal affect Attitude: cooperative Course Vital Signs Vital signs: Vital Signs Temperature 36.6 C 03/27/25 17:38 Pulse Rate 87 03/27/25 17:38 Respiratory Rate 20 03/27/25 17:38 Blood Pressure 88/63 L 03/27/25 17:38 Pulse Oximetry 94 03/27/25 17:38 Oxygen Delivery Room Air 03/27/25 17:38 Temperature 36.6 C 03/27/25 17:38 Pulse Rate 75 03/27/25 20:15 Respiratory Rate 19 03/27/25 20:15 Blood Pressure 135/81 03/27/25 20:15 Pulse Oximetry 98 03/27/25 20:15 Oxygen Delivery Room Air 03/27/25 18:47 MDM - Nausea/Vomiting/Diarrhea MDM Narrative Medical decision making narrative: patient is a 79-year-old female with diarrhea for the past 10 days. We will do workup at this time. We will attempt to get stool. EKG shows AFib but she is already on Eliquis. She will need further evaluation of the AFib. Lab Data Attestation: I reviewed the patient's lab results. 03/27/25 18:42 03/27/25 18:43 Labs: Lab Results 03/27/25 03/27/25 Range/Units 18:42 18:43 WBC 6.8 (4.8-10.8) K/mm3 RBC 4.28 (4.20-5.40) M/mm3 Hgb 13.7 (11.7-13.8) g/dL Hct 43.1 H (35.0-42.0) % MCV 100.7 (78.0-102.0) fL MCH 32.0 H (27.0-31.0) pg MCHC 31.8 L (32-36) g/dL RDW 15.1 H (11.6-14.4) % Plt Count 199 (150-420) K/mm3 MPV 12.3 H (9.2-11.8) fl Immature Gran % (Auto) 0.4 H (0.0-0.0) % Neut % (Auto) 68.4 (50.0-70.0) % Lymph % (Auto) 12.3 L (18.0-42.0) % [place] % (Auto) 12.0 H (2.0-11.0) % Eos % (Auto) 6.5 H (1.0-6.0) % Baso % (Auto) 0.4 (0.0-1.0) % Lymph # (Auto) 0.84 L (1.10-4.50) K/mm3 [place] # (Auto) 0.82 (0.10-0.90) K/mm3 Eos # (Auto) 0.44 (0.02-0.50) K/mm3 Baso # (Auto) 0.03 (0.00-0.10) K/mm3 Abs Immat Gran (auto) 0.03 H (0.00-0.00) K/mm3 Absolute Neuts (auto) 4.66 (1.70-7.20) K/mm3 Absolute Nucleated RBC 0.00 (0.00-0.00) K/mm3 Nucleated RBC % 0.0 (0-0.0) % PT 10.9 (9.50-12.1) Seconds INR 1.0 APTT 34.7 H (23.9-30.70) Sec Sodium 141 (137-145) mmol/L Potassium 3.8 (3.4-5.0) mmol/L Chloride 106 (98-107) mmol/L Carbon Dioxide 25 (22-30) mmol/L Anion Gap 10 (4-12) mmol/L BUN 25 H D (7-17) mg/dL Creatinine 1.33 H (0.7-1.0) mg/dL Estim Creat Clear Calc 33 ml/min Estimated GFR 39 L (59 - ) Glucose 119 H (65-110) mg/dL Calculated Osmolality 297 H (285-295) mOsm/kg Lactic Acid 1.1 (0.4-2.0) mmol/L Calcium 9.3 (8.4-10.2) mg/dL Magnesium 2.3 (1.6-2.3) mg/dL Total Bilirubin 1.1 (0.2-1.3) mg/dL AST 33 (14-36) U/L ALT 17 (6-35) U/L Alkaline Phosphatase 99 (38-126) U/L Troponin I 0.014 (0.000-0.034) ng/mL Total Protein 7.5 (6.3-8.2) g/dL Albumin 4.3 (3.5-5.1) g/dL Lipase 127 (23-300) U/L Urine Color Light yellow (Yellow) Urine Appearance Clear (Clear) Urine pH 6.0 (5.0-8.0) Ur Specific [place] <= 1.005 L (1.010-1.020) Urine Protein Negative (Negative) Urine Glucose (UA) 2+ H (Negative) Urine Ketones Negative (Negative) Ur Blood (Man) Negative (Negative) Urine Nitrate Negative (Negative) Urine Bilirubin Negative (Negative) Urine Urobilinogen 0.2 (0.2-1.0) mg/dL Leukocyte Esterase Rfl Negative (Negative) VANE/UL Imaging Data Attestation: I personally reviewed and interpreted this imaging study as follows: Radiologist's impression: CT scan of the abdomen and pelvis shows IMPRESSION: Gallbladder distention with mural thickening and surrounding inflammatory change. Edematous mural thickening within nearly the entirety of the colon with surrounding inflammatory change, similar in appearance to previous examination performed in October of 2023, possibly secondary to patient's known rheumatoid arthritis, as detailed above. No obstruction. Discharge Plan Discharge Clinical Impression: Disease of gallbladder, Dehydration, ALEXANDRA (acute kidney injury), New onset a-fib Rheumatoid arthritis Qualifiers: Rheumatoid arthritis location: unspecified site Rheumatoid factor presence: w ith rheumatoid factor Qualified Code(s): M05.9 - Rheumatoid arthritis with rheumatoid factor, unspecified Patient Disposition: Acute Care Hospital Condition: Stable Patient Language: Solomon Islander Prescriptions: No Action Eliquis 5 mg tablet 5 mg PO BID octreotide acetate 50 mcg/mL (1 mL) syringe 50 mcg subcut BID magnesium Tablet 2 tablet PO BID ascorbic acid (vitamin C) 500 mg Capsule 500 mg PO BID montelukast 10 mg tablet PO torsemide 20 mg tablet PO clonazepam 1 mg tablet PO ipratropium bromide 42 mcg (0.06 %) spray,non-aerosol 2 spray intranasal TID Qty: 15 5RF Rx Instructions: administer into each nostril pantoprazole 40 mg tablet,delayed release (DR/EC) See Rx Instructions .ROUTE .COMPLEX Qty: 90 3RF Dose Instruction: TAKE ONE TABLET BY MOUTH DAILY Rx Instructions: TAKE ONE TABLET BY MOUTH DAILY benzonatate 200 mg capsule See Rx Instructions .ROUTE .COMPLEX Qty: 20 0RF Dose Instruction: TAKE ONE CAPSULE BY MOUTH TWICE A DAY NEEDED FOR COUGH Rx Instructions: TAKE ONE CAPSULE BY MOUTH TWICE A DAY NEEDED FOR COUGH dapagliflozin propanediol [Farxiga] 10 mg tablet See Rx Instructions .ROUTE .COMPLEX Qty: 90 0RF Dose Instruction: TAKE ONE TABLET BY MOUTH DAILY Rx Instructions: TAKE ONE TABLET BY MOUTH DAILY fluticasone propionate [Flonase Allergy Relief] 50 mcg/actuation spray,suspension 1 spray intranasal DAILY Qty: 16 0RF Rx Instructions: administer into each nostril atorvastatin 40 mg tablet See Rx Instructions .ROUTE .COMPLEX Qty: 90 0RF Dose Instruction: TAKE ONE TABLET BY MOUTH DAILY Rx Instructions: TAKE ONE TABLET BY MOUTH DAILY spironolactone 25 mg tablet See Rx Instructions .ROUTE .COMPLEX Qty: 30 3RF Dose Instruction: TAKE HALF A TABLET BY MOUTH DAILY Rx Instructions: TAKE HALF A TABLET BY MOUTH DAILY docusate sodium [Colace] 100 mg capsule 100 mg PO DAILY Qty: 30 2RF levothyroxine 100 mcg tablet See Rx Instructions .ROUTE .COMPLEX Qty: 90 3RF Dose Instruction: TAKE ONE TABLET BY MOUTH DAILY Rx Instructions: TAKE ONE TABLET BY MOUTH DAILY sertraline 100 mg tablet See Rx Instructions .ROUTE .COMPLEX Qty: 90 2RF Dose Instruction: TAKE ONE TABLET BY MOUTH DAILY Rx Instructions: TAKE ONE TABLET BY MOUTH DAILY Follow-up/Referrals: Tera Seals DO [Primary Care Provider] - Time of Disposition: 22:33
--- NOTE | 2025-03-27 17:56 | ECG_ITS ---
Test Date: 2025-03-27 18:39:11 Measurements Intervals Metz Rate: 83 P: 0 AL: 0 QRS: -8 QRSD: 99 T: 98 QT: 390 QTc: 459 Interpretive Statements ATRIAL FIBRILLATION BORDERLINE ST-T WAVE ABNORMALITY- HIGH LATERAL LEADS BASELINE ARTIFACT- I, II, III, AVR, AVL, AVF, V1 ABNORMAL ECG Compared to ECG 02/16/2025 15:08:02 Sinus rhythm no longer present Electronically Signed On 03-27-2025 18:58:01 CDT by Andres Mcdonald D.O.
--- OUTSIDE RECORDS SUMMARY | 2025-03-27 18:24 | XMS_ITS | Clinical Summary ---
Author Organization [facility] Address [address] [place] [address] Care Team Providers Care Training And Development Project Leader Name Role Phone Unavailable Primary Care Provider Unavailabl e Source Comments [facility],non-owned Affiliates and Associated Physician Practices is amultiple site organization consisting of ambulatory clinics and hospital sitesin [place], [place], [place]. This disclosure is being madepursuant to the Care Everywhere program and may not contain all information available regarding this patient. Last updated 18.[facility] [place] Allergies Active Allergy Reactions Criticality Noted Date [...] 2 times daily 04/21/2021 Active Glucosamine-Cho ndroitin 5072-0185 MG/30ML Take 1,500 mg by mouth 2 [...] patient's age to complete this topic Insurance [facility] MANAGED MEDICARE ADV [facility] MANAGED MEDICARE ADV AETNA MEDICARE ADV AETNA MEDICARE ADV
--- OUTSIDE RECORDS SUMMARY | 2025-03-27 18:24 | XMS_ITS | Clinical Summary ---
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
--- OUTSIDE RECORDS SUMMARY | 2025-03-27 18:24 | XMS_ITS | Encounter Summary ---
Author Organization [facility] Address [address] [place] [address] Phone Care Team Providers Care Manager Helpdesk Name Role Phone Yousif Benton MD Primary Care Provider [phone] Nl-Neuromuscle, [place] - Unavailable Unavailab Micheal George MD Primary Care Provider Yoselin Garcia RN Unavailable [phone] Ferny Kearns MD PhD Unavailable [phone] Tera Seals DO Primary Care Provider Charu Galdamez [facility] Unavailable [phone] Encounter Details Date Type Department Care Team [...] on file Legal Sex Female 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 Gender Identity Not on file Sexual Orientation [...] COVID: Suspected 09/22/2021 09/22/2021 09/23/2021 3:06 AM FIVE PIECE EXPANSION MAKER HAND COVID: Suspected 11/11/2022 11/11/2022 11/11/2022 1:37 PM CDT documented as of this encounter Care Teams Manager Helpdesk Relationship Specialty Start Date End Date Yousif Benton MD [address] [place] [address] PCP - General 06/18/17 03/12/20 Micheal Burton MD [address] [place] [address] PCP - General Family Medicine 03/13/20 05/04/22 Tera Seals DO [address] [place] [address] PCP - General Family Medicine 05/05/22 Nl-Neuromuscle, [facility] [address] [place] [address] Referring Physician Neurology 04/18/18 Yoselin Garcia, RN [address] [address] [facility] Outpatient Tree Faller 01/28/21 02/24/21 Ferny Kearns MD PhD [address] [address] Referring Physician Cardiology 04/21/21 Charu Galdamez, DOCTOR OF NAPRAPATHIC MEDICINE [address] [facility] ([facility] Mailstop [phone] [place] [address] [facility] Outpatient Tree Faller 01/24/23 02/20/23 documented as of this encounter
--- OUTSIDE RECORDS SUMMARY | 2025-03-27 18:24 | XMS_ITS | Encounter Summary ---
Author Organization [facility] Address [address] [place] [address] Phone Care Team Providers Care Head Chef Name Role Phone Nl-Tawny Valdes - Unavailable Unavailab Ferny Harris MD PhD Unavailable [phone] Tera Seals DO Primary Care Provider Charu Galdamez [facility] Unavailable [phone] Encounter Details Date Type Department Care Team (Latest Contact Info) Description 12/29/2022 Orders Only [facility] Scanning, Provider Social History Tobacco Use Types Packs/Day Years Used Date Smoking Tobacco: Never Smokeless Tobacco: Never Alcohol Use Standard Drinks/Week Comments No 0 (1 standard drink = 0.6 oz pur e alcohol) Social Connection and Isolation Panel Answer Date Recorded In a typical week, how many times do you talk on the phone with family, friends, or neighbors? More than three times a week 11/10/2022 How often do you get togethe r with friends or relatives? Once a week 11/10/2022 How often do you attend chur ch or episcopalian services? Never 11/10/2022 Do you belong to any clubs o r organizations such as yarsanism groups, unions, fraternal or athletic groups, or [...] place to sleep or slept in a detention (including now)? 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 Gender Identity Not on file Sexual [...] on filedocumented in this encounter Care Teams Head Chef Relationship Specialty Start Date End Date Tera Seals DO [address] [place] [address] PCP - General Family Medicine 05/05/22 Nl-Neuromuscle, [facility] [address] [place] [address] Referring Physician Neurology 04/18/18 Ferny Kearns MD PhD [facility] [place] [address] Referring Physician Cardiology 04/21/21 Charu Galdamez, [facility] [address] [facility] Mailstop [phone] [place] [address] SHOP Outpatient Hair Or Beauty Salon Manager 01/24/23 02/20/23 documented as of this encounter
--- OUTSIDE RECORDS SUMMARY | 2025-03-27 18:24 | XMS_ITS | Encounter Summary ---
Author Organization [facility] Address [address] [place] [address] Phone Care Team Providers Care Cloth Printing Utility Worker Name Role Phone Yousif Benton MD Primary Care Provider Nl-Neuromuscle, [place] - Unavailable Unavailab Micheal George MD Primary Care Provider Yoselin Garcia RN Unavailable [phone] Ferny Kearns MD PhD Unavailable [phone] Tera Seals DO Primary Care Provider Charu Galdamez [facility] Unavailable [phone] Encounter Details Date Type Department Care Team [...] on file Legal 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 Gender Identity Not on file Sexual Orientation [...] COVID: Suspected 09/22/2021 09/22/2021 09/23/2021 3:06 AM INTERNAL GRINDER COVID: Suspected 11/11/2022 11/11/2022 11/11/2022 1:37 PM CDT documented as of this encounter Care Teams Cloth Printing Utility Worker Relationship Specialty Start Date End Date Yousif Benton MD [address] [facility] [place] [address] PCP - General 06/18/17 03/12/20 Micheal Burton MD [address] [place] [address] PCP - General Family Medicine 03/13/20 05/04/22 Tera Seals DO [address] [place] [address] PCP - General Family Medicine 05/05/22 Nl-Neuromuscle, [facility] [address] [place] [address] Referring Physician Neurology 04/18/18 Yoselin Garcia, RN [address] [address] [facility] Outpatient Pipeline Dispatcher 01/28/21 02/24/21 Ferny Kearns MD PhD [address] [address] Referring Physician Cardiology 04/21/21 Charu Galdamez, ACID MIXER [address] [facility] [place] [place] Mailstop [phone] [place] [address] SHOP Outpatient Pipeline Dispatcher 01/24/23 02/20/23 documented as of this encounter
--- OUTSIDE RECORDS SUMMARY | 2025-03-27 18:24 | XMS_ITS | Encounter Summary ---
Author Organization [facility] Address [address] [place] [address] Phone Care Team Providers Care Director Digital Advertising Name Role Phone Yousif Benton MD Primary Care Provider [phone] Unknown, Notinfile Primary Care Provider Unavail able Yousif Benton MD Primary Care Provider [phone] Nl-Neuromuscle, [place] - Unavailable Unavailab Micheal George MD Primary Care Provider Yoselin Garcia RN Unavailable Ferny Kearns MD PhD Unavailable Tera Seals DO Primary Care Provider Charu Galdamez ACID CONCENTRATOR Unavailable [phone] Encounter Details Date Type Department Care Team (Late st Contact Info) Description 08/14/2013 Orders Only [facility] CAR CLINCONV Provider, MD Maame [address] [place] [id number] Social History Tobacco Use Types Packs/Day Years Used Date Smoking Tobacco: Never Assessed Comments Unknown Sex and Gender Information Value Date Recorded Sex Assigned at Not on file 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 Gender Identity Not on file Sexual Orientation [...] COVID: Suspected 09/22/2021 09/22/2021 09/23/2021 3:06 AM PLASTIC DUPLICATOR COVID: Suspected 11/11/2022 11/11/2022 11/11/2022 1:37 PM CDT documented as of this encounter Care Teams Director Digital Advertising Relationship Specialty Start Date End Date Yousif Benton MD [address] [address] PCP - General 12/27/16 06/07/17 Unknown, Notinfile PCP - General 06/08/17 06/17/17 Yousif Benton MD [address] [address] PCP - General 06/18/17 03/12/20 Micheal Burton MD [address] [place] [address] PCP - General Family Medicine 03/13/20 05/04/22 Tera Seals DO [address] [place] [address] PCP - General Family Medicine 05/05/22 Aga-NeuromuscTawny stanley - [address] [place] [address] Referring Physician Neurology 04/18/18 Yoselin Garcia, RN [address] [facility] [address] [place] [address] RASHIDA Outpatient Mobile Game Engineer 01/28/21 02/24/21 Ferny Kearns MD PhD [address] [facility] [address] [place] [address] Referring Physician Cardiology 04/21/21 Charu Galdamez LCSW [address] [facility] [place] [place] Mailstop [phone] [place] [address] RASHIDA Outpatient Mobile Game Engineer 01/24/23 02/20/23 documented as of this encounter
--- OUTSIDE RECORDS SUMMARY | 2025-03-27 18:24 | XMS_ITS | Clinical Summary ---
Author Organization [facility] Address [address] [place] [address] Care Team Providers Care Php Consultant Name Role Phone Nl-Keisha Wusm - Unavailable Unavailab Ferny Harris MD PhD Unavailable [phone] Tera Seals DO Primary Care Provider Allergies Active Allergy Reactions Criticality Noted Date Comments Gluten Diarrhea Medium 06/15/2018 Metoprolol Hallucinations Medium 11/09/2022 Wheat Diarrhea Low 12/31/2012 Medications sertraline (ZOLOFT) 100 mg tablet Take 1 tablet (100 mg total) by mouth washer assembler before breakfast 03/23/20 20 Active atorvastatin (LIPITOR) 40 mg tablet Take 1 tablet (40 mg total) by mouth daily 90 tablet 3 11/18/19 22 Active MAGNESIUM ORAL Take 1,000 mg by mouth 2 (two) times a day Active VITAMIN A ORAL Take 1 tablet by mouth washer assembler before breakfast Active Farxiga 10 mg tablet Take 1 tablet (10 mg total) by mouth daily 12/13/19 23 Active spironolactone (ALDACTONE) 25 mg tablet Take 0.5 tablets (12.5 mg total) by mouth every morning Active carbidopa-levo dopa (SINEMET) 10-100 mg per tablet 09/07/19 24 Active levothyroxine (SYNTHROID) 137 mcg tablet Take 1 tablet (137 mcg total) by mouth washer assembler before breakfast 03/04/20 24 Active ascorbic acid 500 mg tablet,chewabl e Take 1 tablet/chew tab (500 mg total) by mouth daily Active pantoprazole DR (PROTONIX) 40 mg EC tablet Take 1 tablet (40 mg total) by mouth daily 04/01/20 24 Active zinc gluconate 50 mg tablet Take 1 tablet (50 mg total) by mouth daily Active pyridoxine (VITAMIN B-6) 100 mg tablet Take 1 tablet (100 mg total) by mouth daily Active valACYclovir (VALTREX) 1 gram tablet as needed 05/28/20 24 Active benzonatate (TESSALON) 200 mg capsule 07/29/20 24 Active octreotide LAR (SandoSTATIN LAR Depot) 20 mg suspension,ext ended rel recon Inject 20 mg, intramuscular ly, in the left or right gluteal Q28 days. Alternate gluteal injection sites 3 each 3 08/01/20 24 Active fluticasone propionate (FLONASE) 50 mcg/actuation nasal spray as needed 10/06/19 25 Active hydroxychloroq uine (PLAQUENIL) 200 mg tablet Take 1 tablet (200 mg total) by mouth daily 30 tablet 6 10/28/19 25 Active cetirizine (ZyrTEC) 10 mg chewable tablet Take 1 tablet (10 mg total) by mouth daily Active chlorhexidine (PERIDEX) 0.12 % oral rinse 10/29/19 25 Active Eliquis 5 mg tablet TAKE ONE TABLET BY MOUTH TWICE A DAY 180 tablet 3 02/11/20 25 Active clonazePAM (KlonoPIN) 1 mg tablet TAKE ONE (1) TABLET (1 MG TOTAL) BY MOUTH NIGHTLY 30 tablet 03/16/20 25 Active torsemide (DEMADEX) 20 mg tablet TAKE ONE TABLET BY MOUTH EVERY MORNING 90 tablet 2 03/24/20 25 Active torsemide (DEMADEX) 20 mg tablet TAKE ONE TABLET BY MOUTH EVERY MORNING 90 tablet 3 08/11/20 24 025 Discontinued clonazePAM (KlonoPIN) 1 mg tablet Take 1 tablet (1 mg total) by mouth nightly 30 tablet 5 10/14/19 25 025 Discontinued Hospital, Clinic, or Other Facility Administered Medication Ordered Dose Route Frequency Start Date End Date Status perflutren protein-a (OPTISON) 3 mL in sodium chloride 0.9% 8 mL syringe 1 - 8 mL IV Once in imaging 04/19/2023 Active Active Problems Problem Noted Date Diagnosed Date Chronic pruritic rash in adult 12/11/2024 Assessment & Plan (12/11/2024 6:05 PM CDT): The patient offered some recommendations of providers who have deep knowledge of skin conditions in autoimmune diseases Cardiomyopathy, ischemic 03/10/2024 Angiodysplasia of gastrointestinal tract 023 Assessment & Plan (12/11/2024 6:02 PM CDT): We would like to recheck her CBC and iron stores now that she is further out from her iron infusions. If her hemoglobin and iron stores have dropped but her tTG remains appropriate, Dr. Tamayo would be open to increasing her Sandostatin LAR to 30 mg. For now we will continue Sandostatin LAR 20 mg especially if her labs remained stable Assessment & Plan (06/27/2024 3:47 PM HIMS MANAGER): If the patient is not able to [...] (09/24/2022): Added automatically from request for surgery [id number] Atrial fibrillation with RVR 09/13/2022 Assessment & Plan (09/18/2022 1:45 PM HIMS MANAGER): A fib diagnosed 08/16/2022, previously on metop [...] recs Assessment & Plan (09/17/2022 9:57 AM HIMS MANAGER): A fib diagnosed 08/16/2022, previously on metop [...] recs Assessment & Plan (09/16/2022 10:20 AM HIMS MANAGER): A fib diagnosed 08/16/2022, previously on metop [...] recs Assessment & Plan (09/15/2022 9:09 AM HIMS MANAGER): A fib diagnosed 08/16/2022, previously on metop [...] recs Assessment & Plan (09/14/2022 11:08 AM HIMS MANAGER): A fib diagnosed 08/16/2022, previously on metop [...] recs Assessment & Plan (09/13/2022 3:07 PM HIMS MANAGER): A fib diagnosed 08/16/2022, previously on metop [...] (08/08/2022): Added automatically from request for surgery [id number] Anemia in other chronic diseases classified else where 02/15/2022 Depression 10/31/2021 Assessment & Plan (09/18/2022 1:45 PM HIMS MANAGER): Continue home sertraline, klonopin Assessment & Plan (09/17/2022 9:57 AM HIMS MANAGER): Continue home sertraline, klonopin Assessment & Plan (09/16/2022 10:20 AM HIMS MANAGER): Continue home sertraline, klonopin Assessment & Plan (09/15/2022 9:12 AM HIMS MANAGER): Continue home sertraline, klonopin Assessment & Plan (09/14/2022 11:08 AM HIMS MANAGER): Continue home sertraline, klonopin Assessment & Plan (09/13/2022 3:12 PM HIMS MANAGER): Continue home sertraline Assessment & Plan (11/01/2021 1:41 PM CDT): -Cont Clonazapam nightly and Sertraline 100 Assessment & Plan (10/31/2021 5:51 PM CDT): -Cont Clonazapam nightly and Sertraline 100 Coronary artery disease 08/18/2021 Overview (08/18/2021): Added automatically from request for surgery [id number] Assessment & Plan (12/13/2022 6:51 PM CDT): S/p LHC and PCI 08/2021: RCA and LCx, 10/2021: LAD and diagonal -Cont home Plavix 75, atorvastatin 40 + losartan 12.5 Assessment & Plan (09/18/2022 1:45 PM HIMS MANAGER): S/p PCI 3/22 - plavix and xarelto on hold for procedure - metop as above - continue statin Assessment & Plan (09/17/2022 9:57 AM HIMS MANAGER): S/p PCI 3/22 - plavix and xarelto on hold for procedure - metop as above - continue statin Assessment & Plan (09/16/2022 10:20 AM HIMS MANAGER): S/p PCI 3/22 - plavix and xarelto on hold for procedure - metop as above - continue statin Assessment & Plan (09/15/2022 9:12 AM HIMS MANAGER): S/p PCI 3/22 - plavix and xarelto on hold for procedure - metop as above - continue statin Assessment & Plan (09/14/2022 11:08 AM HIMS MANAGER): S/p PCI 11/01 - plavix and xarelto on hold for procedure - metop as above - continue statin Assessment & Plan (09/13/2022 3:08 PM HIMS MANAGER): S/p PCI 11/01 - plavix and xarelto [...] continue to monitor Chronic systolic heart failure 04/16/2021 Overview (04/16/2021): Assessment & Plan (12/17/2024 2:19 PM CDT): Continue Losartan and apixaban, follow up with cardiology This may be a contributor to her persistent cough and dyspnea as well Assessment & Plan (10/15/2024 4:24 PM HIMS MANAGER): Continue Losartan and follow up with cardiology This may be a contributor to her persistent cough and dyspnea as well Assessment & Plan (04/24/2024 10:09 PM CDT): [...] farixga Assessment & Plan (09/18/2022 1:45 PM HIMS MANAGER): EF 40%, 2/2 ischemic CM - taking [...] recs Assessment & Plan (09/17/2022 9:57 AM HIMS MANAGER): EF 40%, 2/2 ischemic CM - taking [...] recs Assessment & Plan (09/16/2022 10:20 AM HIMS MANAGER): EF 40%, 2/2 ischemic CM - taking [...] recs Assessment & Plan (09/15/2022 9:11 AM HIMS MANAGER): EF 40%, 2/2 ischemic CM - taking [...] recs Assessment & Plan (09/14/2022 11:08 AM HIMS MANAGER): EF 40%, 2/2 ischemic CM - taking lasix as needed at home - BNP elevated on admission, not clinically volume overloaded on exam - s/p 1u pRBC 09/13, will hold further IVF - will give lasix IV 40mg x1 22 - repeat TTE - cards c/s- appreciate recs Assessment & Plan (09/13/2022 3:11 PM HIMS MANAGER): EF 40%, 2/2 ischemic CM - taking [...] 03/2020 - appears comfortable upon transfer to [facility], exam improved with IV diuresis - diuresis [...] 03/2020 - appears comfortable upon transfer to [facility], exam improved with IV diuresis - diuresis [...] 03/2020 - appears comfortable upon transfer to [facility], exam improved with IV diuresis - diuresis [...] 03/2020 - appears comfortable upon transfer to [facility], warm and wet on exam - will [...] (02/17/2021): Added automatically from request for surgery [id number] Assessment & Plan (06/27/2024 3:48 PM HIMS MANAGER): Based on today's blood work she is [...] will forward her lab work to Dr. Blinder who can likely arrange for iron infusions [...] (02/17/2021): Added automatically from request for surgery [id number] Assessment & Plan (12/11/2024 6:03 PM CDT): Continue close monitoring of her hemoglobin and iron stores. The patient will continue close follow-up with Hematology Deep vein thrombosis (DVT) associated with COVID -19 09/13/2020 Assessment & Plan (09/18/2022 1:45 PM HIMS MANAGER): Hold home xarelto for procedure as above Assessment & Plan (09/17/2022 9:57 AM HIMS MANAGER): Hold home xarelto for procedure as above Assessment & Plan (09/16/2022 10:20 AM HIMS MANAGER): Hold home xarelto for procedure as above Assessment & Plan (09/15/2022 9:12 AM HIMS MANAGER): Hold home xarelto for procedure as above Assessment & Plan (09/14/2022 11:08 AM HIMS MANAGER): Hold home xarelto for procedure as above Assessment & Plan (09/13/2022 3:13 PM HIMS MANAGER): Hold home xarelto for procedure as above [...] 07/03/2020 Assessment & Plan (07/04/2020 11:44 AM HIMS MANAGER): CT C/A/P 07/02 showed extensive portal venous [...] dc. Will need outpatient heme f/u for senior living AC management. - Switched from Xarelto to [...] 07/03/2020 Assessment & Plan (07/04/2020 11:28 AM HIMS MANAGER): Unclear etiology, likely related to underlying GI [...] (04/29/2020): Added automatically from request for surgery [id number] Gastroesophageal reflux disease 02/11/2020 Overview (02/11/2020): Added automatically from request for surgery [id number] Assessment & Plan (12/11/2024 6:02 PM CDT): Continue PPI Assessment & Plan (06/27/2024 3:44 PM HIMS MANAGER): The patient will continue Protonix Assessment & [...] CBC Assessment & Plan (07/04/2020 11:33 AM HIMS MANAGER): - Cont PPI daily Assessment & Plan (07/03/2020 11:50 AM HIMS MANAGER): - Cont PPI daily Assessment & Plan (07/02/2020 1:59 PM HIMS MANAGER): - Cont PPI daily Assessment & Plan (07/01/2020 2:59 PM HIMS MANAGER): - Cont PPI daily Assessment & Plan (06/30/2020 2:10 PM HIMS MANAGER): - Cont PPI IV BID Assessment & Plan (06/29/2020 2:04 PM HIMS MANAGER): - Cont PPI IV BID Assessment & Plan (06/28/2020 2:09 PM HIMS MANAGER): - Cont PPI IV BID Assessment & Plan (06/27/2020 6:05 AM HIMS MANAGER): Currently starting pantoprazole 40 mg IV b.i.d. pending evaluation for GI bleed. Dysphagia 02/11/2020 Overview (02/11/2020): Added automatically from request for surgery [id number] Allergic rhinitis 08/11/2019 Periodic limb movement disorder 08/11/2019 Assessment & Plan (11/01/2021 1:40 PM CDT): -Cont home Ropinirole 0.5 Assessment & Plan (10/31/2021 5:44 PM CDT): -Cont home Ropinirole 0.5 Bronchiectasis without acute exacerbation 2018 Assessment & Plan (12/17/2024 2:17 PM CDT): Continue to use flutter valve several times per day everyday. She should continue NAC 600 mg oral twice daily If she begins to produce larger amounts of sputum I will plan to reorder sputum cultures and AFB samples She may benefit from vest therapy in the future Assessment & Plan (10/15/2024 4:22 PM HIMS MANAGER): I have reinforced that she must use her flutter valve several times per day everyday. I have also instructed her to use NAC 600 mg oral twice daily If she begins to produce larger amounts of sputum I will reorder sputum cultures and AFB samples She may benefit from vest therapy in the future Assessment & Plan (04/24/2024 10:12 PM CDT): Flutter valve use daily Start NAC She may benefit from vest therapy in the future Assessment & Plan (07/04/2020 11:33 AM HIMS MANAGER): History of bronchiectasis per imaging and mild [...] now Assessment & Plan (07/03/2020 12:53 PM HIMS MANAGER): History of bronchiectasis per imaging and mild [...] now Assessment & Plan (07/02/2020 2:00 PM HIMS MANAGER): History of bronchiectasis per imaging and mild obstructive pulmonary disease per PFTs with patient recently prescribed albuterol and Symbicort which she reports she does not take as she does not really have any pulmonary symptoms except for when she was recently hospitalized with COVID-19 - Continue to monitor for now Assessment & Plan (07/01/2020 3:00 PM HIMS MANAGER): History of bronchiectasis per imaging and mild obstructive pulmonary disease per PFTs with patient recently prescribed albuterol and Symbicort which she reports she does not take as she does not really have any pulmonary symptoms except for when she was recently hospitalized with COVID-19 - Continue to monitor for now Assessment & Plan (06/30/2020 2:10 PM HIMS MANAGER): History of bronchiectasis per imaging and mild obstructive pulmonary disease per PFTs with patient recently prescribed albuterol and Symbicort which she reports she does not take as she does not really have any pulmonary symptoms except for when she was recently hospitalized with COVID-19. - Continue to monitor for now Assessment & Plan (06/29/2020 2:04 PM HIMS MANAGER): History of bronchiectasis per imaging and mild obstructive pulmonary disease per PFTs with patient recently prescribed albuterol and Symbicort which she reports she does not take as she does not really have any pulmonary symptoms except for when she was recently hospitalized with COVID-19. - Continue to monitor for now Assessment & Plan (06/28/2020 2:09 PM HIMS MANAGER): History of bronchiectasis per imaging and mild obstructive pulmonary disease per PFTs with patient recently prescribed albuterol and Symbicort which she reports she does not take as she does not really have any pulmonary symptoms except for when she was recently hospitalized with COVID-19. - Continue to monitor for now Assessment & Plan (06/27/2020 6:03 AM HIMS MANAGER): History of bronchiectasis per imaging and mild [...] 07/10/2018 Assessment & Plan (08/15/2019 12:53 PM HIMS MANAGER): - 73 y.o. woman with balance problems [...] worsens Assessment & Plan (07/07/2019 11:49 AM HIMS MANAGER): - 73 y.o. woman with balance problems [...] 06/21/2018 Celiac disease 06/21/2018 Assessment & Plan (12/11/2024 6:00 PM CDT): The patient is tTG was much better by September. We would like her to continue very strict gluten free diet. Her hemoglobin is much improved. We will recheck her tTG. 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 Although, pt and family report that patient has been strict with her diet. 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 - GI c/s for inpatient scopes as above Assessment & Plan (06/29/2020 2:03 PM HIMS MANAGER): Continue gluten and wheat free diet once allowed to eat pending planned procedures. - GI c/s for inpatient scopes as above Assessment & Plan (06/28/2020 2:07 PM HIMS MANAGER): Continue gluten and wheat free diet once allowed to eat pending planned procedures. - GI c/s for inpatient scopes as above Assessment & Plan (06/27/2020 6:03 AM HIMS MANAGER): Continue gluten and wheat free diet once allowed to eat pending planned procedures. 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 -I d/w GI biliary - plan for EUS-guided biopsy today Assessment & Plan (06/17/2018 12:43 PM HIMS MANAGER): -seen on OSH chest CT after review by our radiologists. They recommend standard protocol C/A/P CT with contrast to better evaluate -add on LDH Pericardial effusion 06/15/2018 Assessment & Plan (06/27/2020 6:07 AM HIMS MANAGER): History of duodenal ulcer. Continue PPI as above. Assessment & Plan (06/18/2018 10:11 AM HIMS MANAGER): -reported large pericardial effusion, but only small here on echo and on review of OSH CT -possibly related to mediastinal mass Assessment & Plan (06/17/2018 12:49 PM HIMS MANAGER): -reported large pericardial effusion, but only small here on echo and on review of OSH CT -possibly related to mediastinal mass -further imaging as above. Assessment & Plan (06/16/2018 11:08 AM HIMS MANAGER): Transferred from OSH with c/f new pericardial [...] 05/18/2018 Assessment & Plan (07/04/2020 11:30 AM HIMS MANAGER): History of RA, PMR and fibromyalgia followed by rheumatology Dr. Robertson and managed with methotrexate. 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 - Cont holding methotrexate, may resume at [place] Assessment & Plan (07/03/2020 11:14 AM HIMS MANAGER): History of RA, PMR and fibromyalgia followed by rheumatology Dr. Robertson and managed with methotrexate. 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 - Cont holding methotrexate in setting of ALEX[facility]DR[facility], may resume at [facility] Assessment & Plan (07/02/2020 1:59 PM HIMS MANAGER): History of RA, PMR and fibromyalgia followed by rheumatology Dr. Robertson and managed with methotrexate. 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 - Cont holding methotrexate in setting of [facility]LEX[facility]DR[facility], may resume at [facility] Assessment & Plan (07/01/2020 2:58 PM HIMS MANAGER): History of RA, PMR and fibromyalgia followed by rheumatology Dr. Robertson and managed with methotrexate. 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 - Cont holding methotrexate in setting of [facility]LEX[facility]DRA, may resume at dc Assessment & Plan (06/30/2020 2:09 PM HIMS MANAGER): History of RA, PMR and fibromyalgia followed by rheumatology Dr. Robertson and managed with methotrexate. 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 - Cont holding methotrexate in setting of ALEXANDRA - Touch base with Rheumatology regarding refills Assessment & Plan (06/29/2020 2:03 PM HIMS MANAGER): History of RA, PMR and fibromyalgia followed by rheumatology Dr. Robertson and managed with methotrexate. 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 - Cont holding methotrexate in setting of ALEXANDRA -Touch base with Rheumatology regarding refills Assessment & Plan (06/28/2020 1:58 PM HIMS MANAGER): History of RA, PMR and fibromyalgia followed by rheumatology Dr. Robertson and managed with methotrexate. 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 - Cont holding methotrexate in setting of ALEXANDRA -Touch base with Rheumatology regarding refills Assessment & Plan (06/27/2020 6:08 AM HIMS MANAGER): History of RA, PMR and fibromyalgia followed by rheumatology Dr. Robertson and managed with methotrexate. Patient reports being at a methotrexate for 2 weeks and being unable to contact her name plate stamping machine operator during this period of time. -given acute renal failure reported by the patient at the outside hospital, it may have actually been beneficial that she was not taking methotrexate during this time. -follow admission creatinine, continue holding methotrexate for now -touch base with Rheumatology regarding refills Assessment & Plan (06/18/2018 10:09 AM HIMS MANAGER): -Serologic workup for underlying rheumatic disease unremarkable. No active synovitis on exam. -Largely resolved. Assessment & Plan (06/17/2018 12:45 PM HIMS MANAGER): -Serologic workup for underlying rheumatic disease unremarkable. No active synovitis on exam. Assessment & Plan (06/16/2018 11:12 AM HIMS MANAGER): Noted joint pains, diffusely, mainly left shoulder. [...] 8 Assessment & Plan (07/07/2020 4:12 PM HIMS MANAGER): Hx chronic diarrhea, possible celiac, initially bloody, [...] PRN. Assessment & Plan (07/04/2020 11:25 AM HIMS MANAGER): Hx of chronic diarrhea in setting of [...] <7 Assessment & Plan (07/03/2020 12:57 PM HIMS MANAGER): Hx of chronic diarrhea in setting of [...] <7 Assessment & Plan (07/02/2020 2:05 PM HIMS MANAGER): Hx of chronic diarrhea in setting of [...] recs Assessment & Plan (07/01/2020 3:08 PM HIMS MANAGER): Hx of chronic diarrhea in setting of [...] recs Assessment & Plan (06/30/2020 2:13 PM HIMS MANAGER): Hx of chronic diarrhea in setting of [...] EGD/C-scope Assessment & Plan (06/29/2020 1:59 PM HIMS MANAGER): Hx of chronic diarrhea in setting of [...] signed Assessment & Plan (06/28/2020 2:14 PM HIMS MANAGER): Hx of chronic diarrhea in setting of [...] signed Assessment & Plan (06/27/2020 6:14 AM HIMS MANAGER): Patient with chronic diarrhea in setting of [...] signed Assessment & Plan (06/18/2018 10:10 AM HIMS MANAGER): Resolved with gluten-free diet, although biopsies weren't consistent with celiac Assessment & Plan (06/17/2018 12:45 PM HIMS MANAGER): Resolved with gluten-free diet Assessment & Plan (06/16/2018 11:00 AM HIMS MANAGER): Resolved. Assessment & Plan (06/15/2018 5:37 AM [...] 05/17/2018 Assessment & Plan (06/18/2018 10:10 AM HIMS MANAGER): -cont therapeutic Lovenox (holding dose for procedure today) Assessment & Plan (06/17/2018 12:47 PM HIMS MANAGER): -cont therapeutic Lovenox Assessment & Plan (06/15/2018 5:37 AM CDT): On Lovenox at home. -Will hold lovenox at this time given possibility for hemorrhagic component to effusion and possible need for drain. Assessment & Plan (05/22/2018 12:03 AM CDT): INR down to <2 today, started on Hep gtt, will hold on AM of 10 for scope Heme consulted for elevated INR, [...] oxybutynin Assessment & Plan (07/04/2020 11:29 AM HIMS MANAGER): - Cont oxybutynin Assessment & Plan (07/03/2020 11:14 AM HIMS MANAGER): - Cont oxybutynin Assessment & Plan (07/02/2020 1:59 PM HIMS MANAGER): - Cont oxybutynin Assessment & Plan (07/01/2020 2:58 PM HIMS MANAGER): - Cont oxybutynin Assessment & Plan (06/30/2020 2:10 PM HIMS MANAGER): - Cont oxybutynin - Cr now improving, maykel shaffer'justin Assessment & Plan (06/29/2020 2:03 PM HIMS MANAGER): - Cont oxybutynin - Cr now improving, maykel shaffer'd Assessment & Plan (06/28/2020 2:00 PM HIMS MANAGER): - Cont oxybutynin - Cr now improving, will dc brar and do a void trial Assessment & Plan (06/27/2020 6:07 AM HIMS MANAGER): Resume oxybutynin. Currently with Brar in place. Pending creatinine will remove Brar and attempt voiding trial. Assessment & Plan (05/17/2018 2:16 AM CDT): Continue home Mybretriq Hypothyroidism 05/17/2016 Assessment & Plan (12/13/2022 6:48 PM CDT): -Cont home Synthroid 137 Assessment & Plan (09/18/2022 1:45 PM HIMS MANAGER): Continue home synthroid - check TSH given RVR- wnl Assessment & Plan (09/17/2022 9:58 AM HIMS MANAGER): Continue home synthroid - check TSH given RVR- wnl Assessment & Plan (09/16/2022 10:21 AM HIMS MANAGER): Continue home synthroid - check TSH given RVR- wnl Assessment & Plan (09/15/2022 9:12 AM HIMS MANAGER): Continue home synthroid - check TSH given RVR- wnl Assessment & Plan (09/14/2022 11:09 AM HIMS MANAGER): Continue home synthroid - check TSH given RVR- wnl Assessment & Plan (09/13/2022 3:10 PM HIMS MANAGER): Continue home synthroid - check TSH given [...] now Assessment & Plan (07/04/2020 11:29 AM HIMS MANAGER): - TSH 2.16, continue home Synthroid Assessment & Plan (07/03/2020 11:13 AM HIMS MANAGER): - TSH 2.16, continue home Synthroid Assessment & Plan (07/02/2020 1:59 PM HIMS MANAGER): - TSH 2.16, continue home Synthroid Assessment & Plan (07/01/2020 2:59 PM HIMS MANAGER): - TSH 2.16, continue home Synthroid Assessment & Plan (06/30/2020 2:10 PM HIMS MANAGER): - TSH 2.16, continue home Synthroid Assessment & Plan (06/29/2020 2:03 PM HIMS MANAGER): - TSH 2.16, continue home Synthroid Assessment & Plan (06/28/2020 1:57 PM HIMS MANAGER): - TSH 2.16, continue home Synthroid Assessment & Plan (06/27/2020 6:06 AM HIMS MANAGER): Add on TSH, continue home Synthroid. Assessment & Plan (06/18/2018 10:10 AM HIMS MANAGER): -cont levothyroxine Assessment & Plan (06/17/2018 12:47 PM HIMS MANAGER): -cont levothyroxine Assessment & Plan (06/16/2018 11:03 AM HIMS MANAGER): Checked TSH and progressive elevation to 9.10 [...] protocol Assessment & Plan (06/18/2018 10:09 AM HIMS MANAGER): Continue home nocturnal CPAP at 9 Assessment & Plan (06/17/2018 12:45 PM HIMS MANAGER): Continue home CPAP at 9. Compliant with CPAP as inpatient. Assessment & Plan (06/16/2018 11:03 AM HIMS MANAGER): Continue home CPAP at 9. Compliant with [...] above Assessment & Plan (07/04/2020 11:29 AM HIMS MANAGER): - Hold losartan in setting of ALEXANDRA, normotensive, may resume at dc Assessment & Plan (07/03/2020 11:13 AM HIMS MANAGER): - Hold losartan in setting of ALEXANDRA, normotensive, may resume at dc Assessment & Plan (07/02/2020 1:59 PM HIMS MANAGER): - Hold losartan in setting of ALEXANDRA, may resume at dc Assessment & Plan (07/01/2020 2:59 PM HIMS MANAGER): - Hold losartan in setting of ALEXANDRA, may resume at dc Assessment & Plan (06/30/2020 2:10 PM HIMS MANAGER): - Hold losartan in setting of ALEXANDRA Assessment & Plan (06/29/2020 2:03 PM HIMS MANAGER): - Hold losartan in setting of ALEXANDRA Assessment & Plan (06/28/2020 1:56 PM HIMS MANAGER): - Holding losartan in setting of ALEXANDRA Assessment & Plan (06/27/2020 6:06 AM HIMS MANAGER): Holding losartan 25 mg daily given reported [...] (07/06/2020): Assessment & Plan (07/07/2020 4:10 PM HIMS MANAGER): 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 Gas seen on that [...] 022 Assessment & Plan (07/07/2020 4:13 PM HIMS MANAGER): Improving delirium. 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 With some somnolence 07/05. Improved after holding home klonopin. Also holding ropinirole. Developed some mild withdrawal tremors with holding klonopin so resumed today and will recommend to taper on outpatient basis given propensity for delirium. Assessment & Plan (07/04/2020 11:27 AM HIMS MANAGER): Appeare confused/lethargic over the last few days, [...] Delirium and fall precautions - Hold some FURNACE CHECKER affecting meds Assessment & Plan (07/03/2020 12:52 PM HIMS MANAGER): Appears confused/lethargic over the last few days, [...] and fall precautions - Will hold some FURNACE CHECKER affecting meds Assessment & Plan (07/02/2020 2:08 PM HIMS MANAGER): Appears confused over the last few days, [...] precautions Assessment & Plan (07/01/2020 3:24 PM HIMS MANAGER): Appeared confused yesterday and today, daughter reports [...] 10/31/2021 Assessment & Plan (07/04/2020 11:33 AM HIMS MANAGER): - Recovered - diagnosed 05/23, repeat covid Ag testing negative Assessment & Plan (07/03/2020 12:12 PM HIMS MANAGER): - Recovered - diagnosed 05/22, repeat covid Ag testing negative Assessment & Plan (07/02/2020 1:59 PM HIMS MANAGER): - Recovered - diagnosed 05/22, repeat covid Ag testing negative Assessment & Plan (07/01/2020 2:59 PM HIMS MANAGER): - Recovered - diagnosed 05/22, repeat covid Ag testing negative Assessment & Plan (06/30/2020 2:10 PM HIMS MANAGER): Recovered - diagnosed 05/22, repeat covid Ag testing negative Assessment & Plan (06/29/2020 2:06 PM HIMS MANAGER): Recovered - diagnosed 05/22, repeat covid Ag testing negative Assessment & Plan (06/28/2020 2:10 PM HIMS MANAGER): History of COVID-19 infection initially diagnosed in May 22, 2020 at an OSH. Labs not currently available for review. Patient required hospitalization for decreased saturations although is now recovered. - Repeat COVID swab negative here Assessment & Plan (06/27/2020 6:18 AM HIMS MANAGER): History of COVID-19 infection initially diagnosed in [...] 10/31/2021 Assessment & Plan (07/06/2020 3:49 PM HIMS MANAGER): Urine culture with pansensitive E coli at OSH. S/p 5 days of abx at OSH and 5d CTX here. Assessment & Plan (07/04/2020 11:29 AM HIMS MANAGER): Urine culture with pansensitive E coli at OSH. Unclear what antibiotic she was receiving although presumably she had received 5 days of it. - Repeat UA 2+ LE, 11-20 wbc 3+ yeast - Urine cx no growth, no urinary symptoms - Completed 5 days of CTX here Assessment & Plan (07/03/2020 11:13 AM HIMS MANAGER): Urine culture with pansensitive E coli at OSH. Unclear what antibiotic she was receiving although presumably she has received 5 days of it. - Repeat UA 2+ LE, 11-20 wbc 3+ yeast - no urinary symptoms - Urine cx no growth - Completed 5 days of CTX here on 07/01 Assessment & Plan (07/02/2020 1:58 PM HIMS MANAGER): Urine culture with pansensitive E coli at OSH. Unclear what antibiotic she was receiving although presumably she has received 5 days of it. - Repeat UA 2+ LE, 11-20 wbc 3+ yeast - no urinary symptoms - Urine cx no growth - Completed 5 days of CTX here on 07/01 Assessment & Plan (07/01/2020 2:58 PM HIMS MANAGER): Urine culture with pansensitive E coli at OSH. Unclear what antibiotic she was receiving although presumably she has received 5 days of it. - Repeat UA 2+ LE, 11-20 wbc 3+ yeast - no urinary symptoms - Urine cx no growth - Continue CTX Assessment & Plan (06/30/2020 2:09 PM HIMS MANAGER): Urine culture with pansensitive E coli. Unclear what antibiotic she was receiving although presumably she has received 5 days of it. - Repeat UA 2+ LE, 11-20 wbc 3+ yeast - no urinary symptoms - Urine cx no growth - Continue CTX for now Assessment & Plan (06/29/2020 2:03 PM HIMS MANAGER): Urine culture with pansensitive E coli. Unclear what antibiotic she was receiving although presumably she has received 5 days of it. - Repeat UA 2+ LE, 11-20 wbc 3+ yeast - no urinary symptoms - Urine cx no growth - Continues to have rising leukocytosis, will resume CTX and CTM Assessment & Plan (06/28/2020 2:13 PM HIMS MANAGER): Urine culture with pansensitive E coli. Unclear what antibiotic she was receiving although presumably she has received 5 days of it. - Repeat UA 2+ LE, 11-20 wbc 3+ yeast - no urinary symptoms - Urine cx no growth - Dc empiric CTX Assessment & Plan (06/27/2020 6:14 AM HIMS MANAGER): Urine culture with pansensitive E coli. Unclear what antibiotic she was receiving although presumably she has received 5 days of it. Will repeat UA and decide on re-initiation of antibiotics at that point. Fatigue 08/11/2019 10/31/2021 VTE (venous thromboembolism) 05/22/2019 10/31/2021 Assessment & Plan (07/04/2020 11:32 AM HIMS MANAGER): History of unprovoked PE and lower extremity [...] gtt. Assessment & Plan (07/03/2020 12:52 PM HIMS MANAGER): History of unprovoked PE and lower extremity [...] 07/02 Assessment & Plan (07/02/2020 1:58 PM HIMS MANAGER): History of unprovoked PE and lower extremity [...] EGD/C-scope Assessment & Plan (07/01/2020 2:57 PM HIMS MANAGER): History of unprovoked PE and lower extremity [...] EGD/C-scope Assessment & Plan (06/30/2020 2:08 PM HIMS MANAGER): History of unprovoked PE and lower extremity [...] hold Assessment & Plan (06/29/2020 2:04 PM HIMS MANAGER): History of unprovoked PE and lower extremity [...] hold Assessment & Plan (06/28/2020 2:08 PM HIMS MANAGER): History of unprovoked PE and lower extremity [...] hold Assessment & Plan (06/27/2020 6:05 AM HIMS MANAGER): History of unprovoked PE and lower extremity [...] 06/18/2018 Assessment & Plan (06/16/2018 10:57 AM HIMS MANAGER): Resolving sepsis due to PNA. Febrile and [...] 07/30/2018 Assessment & Plan (07/07/2019 11:41 AM HIMS MANAGER): 2 Elevated INR 05/20/2018 05/21/2018 Assessment & [...] Encounters Date Type Department Care Team Description 03/09/2025 1:30 PM CDT Office Visit [facility] Cardiology [address] [facility] [address] [place] [address] Nicki Woodall NP Chronic systolic heart failure (HCC) (Primary Dx); Hypertension 03/09/2025 Telephone [facility] Cardiology [address] [facility] Advanced Medicine 8th [place] [address] [place] [id number] Ferny Kearns MD PhD 03/02/2025 Patient Outreach [facility] Care Coordination [address] [place] [address] Ashley Starks from Last 3 Months Immunizations Immunization Administration Dates Next Due Influenza, Quad, Adjuvantate d, Intramuscular 05/10/2020 Influenza, Quadrivalent, Hig h Dose, Preservative Free, Intrr 10/31/2021 Influenza, Quadrivalent, Spl it, Intramuscular 05/10/2020,05/15/2019,05/28/2018 Influenza, Unspecified 04/13/2022,04/13/2020,10/2018 Pneumococcal Conjugate PCV 13 06/29/2016 Pneumococcal Polysaccharide PPV23 07/31/2017 Surgical History Surgery Date Site/Laterality Comments MT TONSILLECTOMY PRIMARY/SECONDARY <AGE 13 APPENDECTOMY OSTEOCHONDROMA EXCISION Right leg SHOULDER SURGERY 08/13/2010 - 08/12/2011 Left Frozen shoulder release/manipulation AUGMENTATION MAMMOPLASTY SECTION x2 CORONARY ANGIOPLASTY WITH STENT PLACEMENT 07/2021, 08/2021, 10/2021 COLONOSCOPY Medical History Medical History Date Comments Celiac disease Sleep apnea Chronic diarrhea Hypothyroidism Chronic kidney disease Memory loss Stroke (HCC) 2017 per imaging Renal insufficiency Pneumonia 05/2019 DVT (deep venous thrombosis) 2018 PE ERIKA positive COVID-19 virus detected 05/23/2020 E-coli UTI 01/26/2021 Status post placement of implantable loop record er 2012 Hypertension Coronary artery disease CHF (congestive heart failure) (HCC) Anemia persistent Portal vein thrombosis 2020 A-fib (HCC) 08/16/2022 Anxiety Hyperlipidemia History of blood transfusion [...] How often do you attend chur or yazidi services? Never 01/24/2023 Do you belong to any clubs o r organizations such as gnosticism groups, unions, fraternal or athletic groups, or school groups? No 01/24/2023 How often do you attend meet ings of the clubs or organizations you belong to? Never 01/24/2023 Are you , , di vorced, , never , or living with a partner? 01/24/2023 AUDIT-C Answer Date Recorded Q1: How often do you have a drink containing alc ohol? Monthly or less 12/11/2024 Q2: How many drinks containi ng alcohol do you have on a typical day when you are drinking? 1 or 2 12/11/2024 Q3: How often do you have si x or more drinks on one occasion? Never 12/11/2024 Overall Financial Resource Strain (CARDIA) Answe r [...] on file Legal Sex Female 6:53 AM HIMS MANAGER Gender Identity Not on file Sexual Orientation Not on file Obstetrics History Last Filed Vital Signs Vital Sign Reading Time Taken Comments Blood Pressure 114/72 03/09/2025 1:23 PM CDT Pulse 69 03/09/2025 1:23 PM CDT Temperature 36.8 C (98.3 F) 03/09/2025 1:23 PM CDT Respiratory Rate 18 10/02/2024 2:37 PM HIMS MANAGER Oxygen Saturation 95% 03/09/2025 1:23 PM CDT Inhaled Oxygen Concentration - - Weight 73.7 kg (162 lb 6.4 oz) 03/09/2025 1:23 P M CDT Height 175.3 cm (5' 9) 03/09/2025 1:23 PM CDT Body Mass Index 23.98 03/09/2025 1:23 PM CDT Plan of Treatment Health Maintenance Due Date Last Done Comments DTaP/Tdap/Td Vaccine (1 - Tdap) 1956 Hepatitis B Screening 1964 Zoster Vaccine (1 of 2) 1965 Well Visit 65+ 2011 Depression Screening 01/16/2024 01/15/2023, 12/04/2022, 12/04/2022, Additional history exists Osteoporosis Screening-Bone Density Scan 01/17/2024 01/16/2022 Fall Risk Assessment 01/24/2024 01/23/2023 Influenza Vaccine (#1) 2025 , 10/31/2021, 05/10/2020, Additional history exists Pneumococcal [...] 12/16/2020, 12/02/2019 Medical Devices Implanted Type Area Supervisor Frame Sample And Pattern Device Identifier Shelf Expiration Date Model / Serial / Lot [employer] Vascade Mvp 6-12fr Venous Closure [id number] - [id number] - [id number] Implanted:Qty: 1 on 12/13/2022 by Yohan Carpenter MD at [facility] Collagen Right: Femoral Vein [employer] 09/12/2024 800-612C- 10U / [id number] / [id number] [employer] Vascade Mvp 6-12fr Venous Closure [id number] - [id number] - [id number] Implanted:Qty: 1 on 12/13/2022 by Yohan Carpenter MD at [facility] Collagen Left: Femoral Vein [employer] 09/12/2024 800-612C- 10U / [id number] 09B / [id number] [employer] Vascade Mvp 6-12fr Venous Closure [id number] - [id number] - [id number] Implanted:Qty: 1 on 12/13/2022 by Yohan Carpenter MD at [facility] Collagen Left: Femoral Vein [employer] 09/12/2024 800-612C- 10U / [id number] 09B / [id number] [employer] Device Closure Vascade Od5 Fr Femoral Artery [id number] - [id number] - [id number] Implanted:Qty: 1 on 12/13/2022 by Yohan Carpenter MD at [facility] Collagen Right: Femoral Vein [employer] 09/04/2024 [id number] -05U / [id number] / Medtronic Usa Inc X [id number] Resolute Abhijeet 3.5mm 2.1-2.7fr 18mm 140cm Rapid Exchange - [id number] Implanted:Qty: 1 on 08/18/2021 by Hero Hernandez MD at [facility] Stent Medtronic Inc 06/10/2024 [id number] / / [id number] [employer]otron[employer] Inc [id number] Stent Coronary De Rx Cocr Ors Msn 2.5x35mm - [id number] Implanted:Qty: 1 on 08/18/2021 by Hero Hernandez MD at [facility] Stent [employer] Inc 02/28/2023 [id number] / / [id number] [employer] Wayne [id number] Synergy Xd Monorail 2.75mm 32mm 144cm Delivery System 1 Access - [id number] Implanted:Qty: 1 on 10/31/2021 by Hero Hernandez MD at [facility] Stent [employer] Wayne 11/18/2022 [id number] / / [id number] [employer] Wayne [id number] Synergy Xd Monorail 3mm 16mm 144cm Delivery System 1 Access Port - [id number] Implanted:Qty: 1 on 10/31/2021 by Hero Hernandez MD at [facility] Stent [employer] Wayne 01/19/2023 [id number] / / [id number] [employer] Wayne [id number] Synergy Xd Monorail 2.25mm 12mm 144cm Delivery System 1 Access - [id number] Implanted:Qty: 1 on 10/31/2021 by Hero Hernandez MD at [facility] Stent [employer] Wayne 06/08/2023 [id number] / / [id number] [employer] Wayne [id number] Synergy Xd Monorail 2.25mm 16mm 144cm Delivery System 1 Access - [id number] Implanted:Qty: 1 on 10/31/2021 by Hero Hernandez MD at [facility] Stent [employer] Wayne 12/14/2022 [id number] / / [id number] Breast Bilateral: Breast Explanted Type Area Supervisor Frame Sample And Pattern Device Identifier Shelf Expiration Date Model / Serial / Lot Implantable Loop Recorder-07/09 Implanted:06/14 (Quantity not on file) Explanted:03/13 (Quantity not on file) Implantable Loop Recorder N/A: Heart [employer] / / Procedures Procedure Name Priority Date/Time Associated Diagnosis Comments ECG 12-LEAD Routine 03/09/2025 1:53 PM CDT Chronic systolic heart failure (HCC) COLONOSCOPY 03/10/2021 11:25 AM CDT HEPATITIS C ANTIBODY Routine 08/23/2018 11:13 AM HIMS MANAGER Eosinophilia from Last 3 Months or Most Recently Relevant to Health Maintenance Results * ECG 12 lead (03/09/2025 1:53 PM CDT) us Nicki Woodall NP ECG ORDERABLES Final Re sult * COLONOSCOPY (03/10/2021 11:25 AM CDT) Anatomical Region Laterality Modality Other Narrative Procedure Note Rosy Valverde MD - 03/10/2021 11:25 AM CDT ENDOSCOPY LAB Patient Name: Diane Silva Procedure Date: 03/10/2021 11:25 AM Date of : 1945 Admit Type: Outpatient Age: 75 Gender: Female Attending MD: Rosy Valverde M.D. Room: [facility] ENDOSCOPY ROOM 01 Note Status: [...] The scope was passed under direct vision.The [id number] was introduced through the anusand advanced to [...] business hours - Please call theNurse Coordinator: [phone] After hours, evening, nights, weekends and holidays- Please call the hospital feller buncher operator at and ask for the GI fellow internal communications specialist. - . Attending Participation: I personally performed the entire procedure. Electronically Signed By: Rosy Valverde M.D. Rosy Valverde M.D. 03/10/2021 11:51:46 AM Number of Addenda: 0 Note Initiated On: 03/10/2021 11:25 AM Rosy Valverde MD ENDOSCOPY PROCEDURES Fin al Result * Hepatitis C antibody (08/23/2018 11:13 AM HIMS MANAGER) Hep C Ab Nonreactive Nonreactive [facility] Comment: Interpretive Data Positive results should be confirmed by a molecular method. If positive, a second separately collected sample should be submitted for Hepatitis C Virus (HCV) RNA Detection and Quantitation by Real-Time Reverse Protective Signal Repairer-PCR (RT-PCR). Current interpretive data was last revised on 2016. Blood specimen (specimen) 08/23/2018 11:13 AM HIMS MANAGER 08/23/2018 2:46 PM HIMS MANAGER Narrative [facility] - 08/24/2018 10:41 AM HIMS MANAGER Lilian Garcia MD LAB MICROBIOLOGY - GENERAL OR DERABLES Edited Result - Final [facility] Department [place] [address] from Last 3 Months or Most Recently Relevant to Health Maintenance Insurance [facility] MEDICARE [facility] Address: [address] [address] [place] [address] [facility] MEDICARE [facility] MEDICARE [employer] MEDICARE Advance Directives For more information, please contact: [phone] * Full Code (Latest Code Status on [...] 9:03 AM 09/22/2022 11:59 PM Care Teams Php Consultant Relationship Specialty Start Date End Date Tera Seals DO [address] [place] [address] PCP - General Family Medicine 05/05/22 Nl-Neuromuscle, [facility] - [address] [place] [address] Referring Physician Neurology 04/18/18 Ferny Kearns MD PhD [address] [place] [address] Referring Physician Cardiology 04/21/21
--- OUTSIDE RECORDS SUMMARY | 2025-03-27 18:24 | XMS_ITS | Encounter Summary ---
Author Organization [facility] Address [facility] [place] [address] Care Team Providers Care Senior Warehouse Clerk Name Role Phone Yousif Benton MD Primary Care Provider [phone] Micheal Burton MD Primary Care Provider [phone] Tera Seals DO Primary Care Provider [phone] Encounter Details Date Type Department Care Team [...] on filedocumented in this encounter Care Teams Senior Warehouse Clerk Relationship Specialty Start Date End Date Yousif Benton MD [address] [place] [address] PCP - General FAMILY PRACTICE 04/18/19 09/12/20 Micheal Burton MD [address] [place] [address] PCP - General FAMILY PRACTICE 09/13/20 07/31/22 Tera Seals DO [address] [place] [address] PCP - General FAMILY PRACTICE 08/01/22 documented as of this encounter
--- OUTSIDE RECORDS SUMMARY | 2025-03-27 18:24 | XMS_ITS | Encounter Summary ---
Author Organization [facility] Address [address] [place] [address] Phone Care Team Providers Care Manager Spring Name Role Phone Nl-Keisha Wusm - Unavailable Unavailab Ferny Harris MD PhD Unavailable Tera Seals DO Primary Care Provider Encounter Details Date Type Department Care Team (Late st Contact Info) Description 04/12/2023 Telephone [facility] Cardiology [facility] Advanced Medicine 8th [place] [address] [place] [address] Ferny Kearns MD PhD [address] [facility] [address] [place] [address] Social History Tobacco Use Types Packs/Day Years [...] often do you attend chur ch or restorationist services? Never 01/24/2023 Do you belong to any clubs o r organizations such as faith groups, unions, fraternal or athletic groups, or [...] on file Legal Sex Female 6:53 AM UTILITY BAG ASSEMBLER Gender Identity Not on file Sexual Orientation Not on file documented as of this encounter Plan of Treatment Not on file documented as of this encounter Visit Diagnoses Not on filedocumented in this encounter Care Teams Manager Spring Relationship Specialty Start Date End Date Tera Seals DO [address] [place] [address] PCP - General Family Medicine 05/05/22 Nl-Neuromuscle, [facility] - [address] [place] [address] Referring Physician Neurology 04/18/18 Ferny Kearns MD PhD [address] [place] [address] Referring Physician Cardiology 04/21/21 documented as of this encounter
--- OUTSIDE RECORDS SUMMARY | 2025-03-27 18:24 | XMS_ITS | Encounter Summary ---
Author Organization [facility] Address [address] [place] [address] Phone Care Team Providers Care Restaurant Crew Name Role Phone Yousif Benton MD Primary Care Provider [phone] Unknown, Notinfile Primary Care Provider Unavail able Yousif Benton MD Primary Care Provider [phone] Nl-Neuromuscle, Tawny - Unavailable Unavailab Micheal George MD Primary Care Provider Yoselin Garcia RN Unavailable [phone] Ferny Kearns MD PhD Unavailable [phone] Tera Seals DO Primary Care Provider Charu Galdamez INSURANCE CLAIMS SUPERVISOR Unavailable [phone] Encounter Details Date Type Department Care Team (Late st Contact Info) Description 07/30/2013 Orders Only [facility]CONV Provider, MD Maame [address] [place] [address] Social History Tobacco Use Types Packs/Day Years Used Date Smoking Tobacco: Never Assessed Comments Unknown Sex and Gender Information Value Date Recorded Sex Assigned at Not on file Legal Sex Female 6:53 AM CIRCUIT WALKER Gender Identity Not on file Sexual Orientation [...] COVID: Suspected 09/22/2021 09/22/2021 09/23/2021 3:06 AM CIRCUIT WALKER COVID: Suspected 11/11/2022 11/11/2022 11/11/2022 1:37 PM CDT documented as of this encounter Care Teams Restaurant Crew Relationship Specialty Start Date End Date Yousif Benton MD [address] [address] PCP - General 12/27/16 06/07/17 Unknown, Notinfile PCP - General 06/08/17 06/17/17 Yousif Benton MD [address] [address] PCP - General 06/18/17 03/12/20 Micheal Burton MD [address] [place] [address] PCP - General Family Medicine 03/13/20 05/04/22 Tera Seals DO [address] [place] [address] PCP - General Family Medicine 05/05/22 Nl-NeuromuscTawny stanley - [address] [place] [address] Referring Physician Neurology 04/18/18 Yoselin Garcia, RN [address] [facility] [address] [place] [address] RASHIDA Outpatient Tool And Die Engineer 01/28/21 02/24/21 Ferny Kearns MD PhD [address] [facility] [address] [place] [address] Referring Physician Cardiology 04/21/21 Charu Galdamez LCSW [address] [facility] ([facility]) Mailstop [phone] [place] [address] RASHIDA Outpatient Tool And Die Engineer 01/24/23 02/20/23 documented as of this encounter
--- OUTSIDE RECORDS SUMMARY | 2025-03-27 18:24 | XMS_ITS | Encounter Summary ---
Author Organization [facility] Address [address] [place] [address] Phone Care Team Providers Care Inpatient Care Manager Rn Name Role Phone Yousif Benton MD Primary Care Provider [phone] Unknown, Notinfile Primary Care Provider Unavail able Yousif Benton MD Primary Care Provider [phone] Nl-Neuromuscle, Tawny - Unavailable Unavailab Micheal George MD Primary Care Provider Yoselin Garcia RN Unavailable Ferny Kearns MD PhD Unavailable [phone] Tera Seals DO Primary Care Provider Charu Galdamez BUSINESS ACCOUNT LEADER Unavailable [phone] Encounter Details Date Type Department Care Team (Late st Contact Info) Description 07/31/2014 Orders Only WUCEDRIC DANGELO CAR CLINCONV Provider, MD Maame [address] [place] [address] Social History Tobacco Use Types Packs/Day Years Used Date Smoking Tobacco: Never Assessed Comments Unknown Sex and Gender Information Value Date Recorded Sex Assigned at Not on file Legal Sex Female 6:53 AM LATHE MACHINE OPERATOR Gender Identity Not on file [...] COVID: Suspected 09/22/2021 09/22/2021 09/23/2021 3:06 AM LATHE MACHINE OPERATOR COVID: Suspected 11/11/2022 11/11/2022 11/11/2022 1:37 PM CDT documented as of this encounter Care Teams Inpatient Care Manager Rn Relationship Specialty Start Date End Date Yousif Benton MD [address] [address] PCP - General 12/27/16 06/07/17 Unknown, Notinfile PCP - General 06/08/17 06/17/17 Yousif Benton MD [address] [address] PCP - General 06/18/17 03/12/20 Micheal Burton MD [address] [place] [address] PCP - General Family Medicine 03/13/20 05/04/22 Tera Seals DO [address] [place] [address] PCP - General Family Medicine 05/05/22 Nl-NeuromuscTawny stanley - [address] [place] [address] Referring Physician Neurology 04/18/18 Yoselin Garcia, RN 45[address] [facility] [address] [place] [address] RASHIDA Outpatient Dental Prosthetist 01/28/21 02/24/21 Ferny Kearns MD PhD [address] [facility] [address] [place] [address] Referring Physician Cardiology 04/21/21 Charu Galdamez LCSW 4590 [facility] [place] Mailstop [phone] [place] [address] RASHIDA Outpatient Dental Prosthetist 01/24/23 02/20/23 documented as of this encounter
--- OUTSIDE RECORDS SUMMARY | 2025-03-27 18:24 | XMS_ITS | Encounter Summary ---
Author Organization [facility] Address [address] [place] [address] Phone Care Team Providers Care Environmental Lead Name Role Phone Yousif Benton MD Primary Care Provider [phone] Unknown, Notinfile Primary Care Provider Unavail able Yousif Benton MD Primary Care Provider [phone] Nl-Neuromuscle, Tawny - Unavailable Unavailab Micheal George MD Primary Care Provider Yoselin Garcia RN Unavailable [phone] Ferny Kearns MD PhD Unavailable [phone] Tera Seals DO Primary Care Provider Charu Galdamez DIRECTOR MEDICAL WRITING Unavailable [phone] Encounter Details Date Type Department Care Team (Late st Contact Info) Description 03/26/2014 Orders Only WUCEDRIC DANGELO CAR CLINCONV Provider, MD Maame [address] [place] [address] Social History Tobacco Use Types Packs/Day Years Used Date Smoking Tobacco: Never Assessed Comments Unknown Sex and Gender Information Value Date Recorded Sex Assigned at Not on file Legal Sex Female 6:53 AM AGRICULTURAL TECHNICIAN Gender Identity Not on file Sexual Orientation [...] COVID: Suspected 09/22/2021 09/22/2021 09/23/2021 3:06 AM AGRICULTURAL TECHNICIAN COVID: Suspected 11/11/2022 11/11/2022 11/11/2022 1:37 PM CDT documented as of this encounter Care Teams Environmental Lead Relationship Specialty Start Date End Date Yousif Benton MD [address] [address] PCP - General 12/27/16 06/07/17 Unknown, Notinfile PCP - General 06/08/17 06/17/17 Yousif Benton MD [address] [address] PCP - General 06/18/17 03/12/20 Micheal Burton MD [address] [place] [address] PCP - General Family Medicine 03/13/20 05/04/22 Tera Seals DO [address] [place] [address] PCP - General Family Medicine 05/05/22 Nl-NeuromuscTawny stanley - [address] [place] [address] Referring Physician Neurology 04/18/18 Yoselin Garcia, RN [address] [facility] [address] [place] [address] RASHIDA Outpatient Management Development Specialist 01/28/21 02/24/21 Ferny Kearns MD PhD [address] [facility] [address] [place] [address] Referring Physician Cardiology 04/21/21 Charu Galdamez LCSW 4590 [facility] [place] Mailstop [phone] [place] [address] RASHIDA Outpatient Management Development Specialist 01/24/23 02/20/23 documented as of this encounter
--- OUTSIDE RECORDS SUMMARY | 2025-03-27 18:24 | XMS_ITS | Encounter Summary ---
Author Organization [facility] Address [address] [place] [address] Phone Care Team Providers Care Section Weaver Name Role Phone Yousif Benton MD Primary Care Provider [phone] Nl-Neuromuscle, Wusm - Unavailable Unavailab Micheal George MD Primary Care Provider Yoselin Garcia RN Unavailable [phone] Ferny Kearns MD PhD Unavailable [phone] Tera Seals DO Primary Care Provider Charu Galdamez [facility] Unavailable [phone] Encounter Details Date Type Department Care Team (Late st Contact Info) Description 04/23/2019 Telephone [facility] ([facility]) - [facility] Urology [address] [facility] Advanced Medicine 11th [place] [address] [place] [address] Nolvia Garcia Social History Tobacco Use Types Packs/Day Years Used Date Smoking Tobacco: Never Smokeless Tobacco: Never Alcohol Use Standard Drinks/Week Comments No 0 (1 standard drink = 0.6 oz pur e alcohol) Comments No Sex and Gender Information Value Date Recorded Sex Assigned at Not on file Legal Sex Female 6:53 AM PATTERN HANGER Gender Identity Not on file Sexual Orientation Not on file documented as of this encounter Plan of Treatment Not on file documented as of this encounter Visit Diagnoses Not on filedocumented in this encounter Additional Health Concerns Infection Onset Date Last Indicated Resolved Time COVID: Suspected 09/22/2021 09/22/2021 09/23/2021 3:06 AM PATTERN HANGER COVID: Suspected 11/11/2022 11/11/2022 11/11/2022 1:37 PM CDT documented as of this encounter Care Teams Section Weaver Relationship Specialty [place] [address] [place] [address] [place] [address] PCP - General 06/18/17 03/12/20 Micheal Burton MD [address] [place] [address] PCP - General Family Medicine 03/13/20 05/04/22 Tera Seals DO [address] [place] [address] PCP - General Family Medicine 05/05/22 Nl-Neuromuscle, [facility] [address] [place] [address] Referring Physician Neurology 04/18/18 Yoselin Garcia, DELILAH [address] [place] [address] SHOP Outpatient Visual And Stock Associate 01/28/21 02/24/21 Ferny Kearns MD PhD 45[address] [facility] [address] [place] [address] Referring Physician Cardiology 04/21/21 Charu Galdamez, RRT 4590 [facility] ([facility] Mailstop [phone] [place] [address] SHOP Outpatient Visual And Stock Associate 01/24/23 02/20/23 documented as of this encounter
--- OUTSIDE RECORDS SUMMARY | 2025-03-27 18:24 | XMS_ITS | Encounter Summary ---
Author Organization [facility] Address [address] [place] [address] Phone Care Team Providers Care Ophthalmologist Retina Specialist Name Role Phone Yousif Benton MD Primary Care Provider [phone] Unknown, Notinfile Primary Care Provider Unavail able Yousif Benton MD Primary Care Provider [phone] Nl-Neuromuscle, Tawny - Unavailable Unavailab Micheal George MD Primary Care Provider Yoselin Garcia RN Unavailable [phone] Ferny Kearns MD PhD Unavailable [phone] Tera Seals DO Primary Care Provider Charu Galdamez AUTOMOBILE PARTS ASSEMBLER Unavailable [phone] Encounter Details Date Type Department Care Team (Late st Contact Info) Description 11/13/2013 Orders Only WUCEDRIC DANGELO CAR CLINCONV Provider, MD Maame [address] [place] [address] Social History Tobacco Use Types Packs/Day Years Used Date Smoking Tobacco: Never Assessed Comments Unknown Sex and Gender Information Value Date Recorded Sex Assigned at Not on file Legal Sex Female 6:53 AM BARREL RACER Gender Identity Not on file Sexual Orientation [...] COVID: Suspected 09/22/2021 09/22/2021 09/23/2021 3:06 AM BARREL RACER COVID: Suspected 11/11/2022 11/11/2022 11/11/2022 1:37 PM CDT documented as of this encounter Care Teams Ophthalmologist Retina Specialist Relationship Specialty Start Date End Date Yousif Benton MD [address] [address] PCP - General 12/27/16 06/07/17 Unknown, Notinfile PCP - General 06/08/17 06/17/17 Yousif Benton MD [address] [address] PCP - General 06/18/17 03/12/20 Micheal Burton MD [address] [place] [address] PCP - General Family Medicine 03/13/20 05/04/22 Tera Seals DO [address] [place] [address] PCP - General Family Medicine 05/05/22 Nl-NeuromuscTawny stanley - [address] [place] [address] Referring Physician Neurology 04/18/18 Yoselin Garcia, RN [address] [facility] [address] [place] [address] RASHIDA Outpatient Seamer 01/28/21 02/24/21 Ferny Kearns MD PhD [address] [facility] [address] [place] [address] Referring Physician Cardiology 04/21/21 Charu Galdamez LCSW 4590 [facility] ([facility] Mailstop [phone] [place] [address] RASHIDA Outpatient Seamer 01/24/23 02/20/23 documented as of this encounter
--- OUTSIDE RECORDS SUMMARY | 2025-03-27 18:24 | XMS_ITS | Encounter Summary ---
Author Organization [facility] Address [address] [place] [address] Care Team Providers Care Adult Basic Education Instructor Name Role Phone Nl-Neuromuscle, Wusm - Unavailable Unavailab Micheal George MD Primary Care Provider Yoselin Garcia RN Unavailable Ferny Kearns MD PhD Unavailable [phone] Tera Seals DO Primary Care Provider Charu Galdamez [facility] Unavailable Encounter Details Date Type Department Care Team (Late st Contact Info) Description 09/09/2020 Telephone [facility] [address] [place] [address] Jessica Ramos, RT Social History Tobacco Use Types Packs/Day Years Used Date Smoking Tobacco: Never Smokeless Tobacco: Never Alcohol Use Standard Drinks/Week Comments No 0 (1 standard drink = 0.6 oz pur e alcohol) Comments No Sex and Gender Information Value Date Recorded Sex Assigned at Not on file Legal Sex Female 6:53 AM CLINICAL PHARMACIST Gender Identity Not on file Sexual Orientation Not on file documented as of this encounter Plan of Treatment Not on file documented as of this encounter Visit Diagnoses Not on filedocumented in this encounter Additional Health Concerns Infection Onset Date Last Indicated Resolved Time COVID: Suspected 09/22/2021 09/22/2021 09/23/2021 3:06 AM CLINICAL PHARMACIST COVID: Suspected 11/11/2022 11/11/2022 11/11/2022 1:37 PM CDT documented as of this encounter Care Teams Adult Basic Education Instructor Relationship Specialty Start Date End Date Micheal Burton MD [address] [place] [address] PCP - General Family Medicine 03/13/20 05/04/22 Tera Seals DO [address] [place] [address] PCP - General Family Medicine 05/05/22 Nl-Neuromuscle, [facility] [address] [place] [address] Referring Physician Neurology 04/18/18 Yoselin Garcia, RN 4590 [facility] [address] [place] [address] SHOP Outpatient Hydraulics Teacher 01/28/21 02/24/21 Ferny Kearns MD PhD 4590 [facility] [address] [place] [address] Referring Physician Cardiology 04/21/21 Charu Galdamez, FINANCIAL OPERATIONS ANALYST 4590 [facility] ([facility] Mailstop [phone] [place] [address] SHOP Outpatient Hydraulics Teacher 01/24/23 02/20/23 documented as of this encounter
--- OUTSIDE RECORDS SUMMARY | 2025-03-27 18:24 | XMS_ITS | Encounter Summary ---
Author Organization [facility] Address [address] [place] [address] Phone Care Team Providers Care Macaroni Press Operator Name Role Phone Nl-Tawny Valdes - Unavailable Unavailab Ferny Harris MD PhD Unavailable [phone] Tera Seals DO Primary Care Provider Charu Galdamez [facility] Unavailable [phone] Encounter Details Date Type Department Care Team [...] often do you attend chur ch or yarsani services? Never 01/28/2021 Do you belong to [...] on file Legal Sex Female 6:53 AM IC DESIGN MANAGER Gender Identity Not on file Sexual [...] documented as of this encounter Care Teams Macaroni Press Operator Relationship Specialty Start Date End Date Tera Seals DO [address] [place] [address] PCP - General Family Medicine 05/05/22 Nl-Neuromuscle, [facility] - [address] [place] [address] Referring Physician Neurology 04/18/18 Ferny Kearns MD PhD [address] [place] [address] Referring Physician Cardiology 04/21/21 Charu Galdamez, SPRINKLER TRUCK DRIVER 4590 [facility] [place] Mailstop [phone] [place] [address] SHOP Outpatient Operating Systems Specialist 01/24/23 02/20/23 documented as of this encounter
--- OUTSIDE RECORDS SUMMARY | 2025-03-27 18:24 | XMS_ITS | Clinical Summary ---
Author Organization [facility] Address [address] [place] [address] Care Team Providers Care Hanger Name Role Phone Tera Seals DO Primary Care Provider [phone] Allergies Active Allergy Reactions Criticality Noted Date Comments Gluten Meal Diarrhea 06/15/2019 Medications Calcium Carbonate-Vit D-Min (CALCIUM 1200) 0535-4788 MG-UNIT Chew Tab 10/02/2017 Active Ascorbic Acid [...] Comments Blood Pressure 154/93 08/05/2022 6:22 AM CLIN APPLICATION SPECIALIST Pulse 83 08/05/2022 6:22 AM CLIN APPLICATION SPECIALIST Temperature 36.6 C (97.9 F) 08/05/2022 6:22 AM CLIN APPLICATION SPECIALIST Respiratory Rate 20 08/04/2022 7:42 PM CLIN APPLICATION SPECIALIST Oxygen Saturation 92% 08/05/2022 6:22 AM CLIN APPLICATION SPECIALIST Inhaled Oxygen Concentration - - Weight 83.3 kg (183 lb 10.3 oz) 08/02/2022 2:14 AM CLIN APPLICATION SPECIALIST Height 172.7 cm (5' 8) 08/02/2022 2:14 AM CLIN APPLICATION SPECIALIST Body Mass Index 27.92 08/02/2022 2:14 AM CLIN APPLICATION SPECIALIST Plan of Treatment Health Maintenance Due Date [...] Diagnosis Comments COLONOSCOPY Routine 08/04/2022 8:56 AM CLIN APPLICATION SPECIALIST BONE DENSITY/DEXA Routine 01/16/2022 3:1 9 PM CDT Osteoporosis, senile from Last 3 Months or Most Recently Relevant to Health Maintenance Results * Colonoscopy (08/04/2022 8:56 AM CLIN APPLICATION SPECIALIST) us Meena Oneill NP GI PROCEDURE ORDERABLES [...] Relevant to Health Maintenance Insurance MED REPLACE [facility] MEDICARE MED [facility] MEDICARE [place] [id number] Advance Directives * Full Code (Latest Code Status on File) Date Activated Date Inactivated Comments 08/02/2022 2:49 AM 08/05/2022 3:20 PM * Full Code Date Activated Date Inactivated Comments 06/03/2020 9:28 PM 06/04/2020 3:31 PM Care Teams Hanger Relationship Specialty Start Date End Date Tera Seals DO [address] [place] [address] PCP - General FAMILY PRACTICE 08/01/22
--- OUTSIDE RECORDS SUMMARY | 2025-03-27 18:25 | XMS_ITS | Encounter Summary ---
Author Organization [facility] Address [address] [place] [address] Phone Care Team Providers Care Ware Carrier Name Role Phone Yousif Benton MD Primary Care Provider [phone] Unknown, Notinfile Primary Care Provider Unavail able Yousif Benton MD Primary Care Provider [phone] Nl-Neuromuscle, Tawny - Unavailable Unavailab Micheal George MD Primary Care Provider Yoselin Garcia RN Unavailable [phone] Ferny Kearns MD PhD Unavailable Tera Seals DO Primary Care Provider Charu Galdamez PUMP TENDER Unavailable [phone] Encounter Details Date Type Department Care Team (Late st Contact Info) Description 08/10/2014 Orders Only WUCEDRIC DANGELO CAR CLINCONV Provider, MD Maame [address] [place] [address] Social History Tobacco Use Types Packs/Day Years Used Date Smoking Tobacco: Never Assessed Comments Unknown Sex and Gender Information Value Date Recorded Sex Assigned at Not on file Legal Sex Female 6:53 AM NUCLEAR MEDICINE SPECIALIST Gender Identity Not on file Sexual [...] COVID: Suspected 09/22/2021 09/22/2021 09/23/2021 3:06 AM NUCLEAR MEDICINE SPECIALIST COVID: Suspected 11/11/2022 11/11/2022 11/11/2022 1:37 PM CDT documented as of this encounter Care Teams Ware Carrier Relationship Specialty Start Date End Date Yousif Benton MD [address] [address] PCP - General 12/27/16 06/07/17 Unknown, Notinfile PCP - General 06/08/17 06/17/17 Yousif Benton MD [address] [place] [address] PCP - General 06/18/17 03/12/20 Micheal Burton MD [address] [place] [address] PCP - General Family Medicine 03/13/20 05/04/22 Tera Seals DO [address] [place] [address] PCP - General Family Medicine 05/05/22 Nl-NeuromuscTawny stanley - [address] [place] [address] Referring Physician Neurology 04/18/18 Yoselin Garcia, RN 4590 [facility] [address] [place] [address] RASHIDA Outpatient Laborer Shipyard 01/28/21 02/24/21 Ferny Kearns MD PhD 4590 [facility] [address] [place] [address] Referring Physician Cardiology 04/21/21 Charu Galdamez LCSW 4590 [facility] ([facility] Mailstop [phone] [place] [address] RASHIDA Outpatient Laborer Shipyard 01/24/23 02/20/23 documented as of this encounter
--- OUTSIDE RECORDS SUMMARY | 2025-03-27 18:25 | XMS_ITS | Encounter Summary ---
Author Organization [facility] Address [address] [place] [address] Phone Care Team Providers Care Loan Inspector Name Role Phone Yousif Benton MD Primary Care Provider [phone] Unknown, Notinfile Primary Care Provider Unavail able Yousif Benton MD Primary Care Provider [phone] Nl-Neuromuscle, Tawny - Unavailable Unavailab Micheal George MD Primary Care Provider Yoselin Garcia RN Unavailable [phone] Ferny Kearns MD PhD Unavailable [phone] Tera Seals DO Primary Care Provider Charu Galdamez LINE CONSTRUCTION SUPERVISOR Unavailable [phone] Encounter Details Date Type Department Care Team (Late st Contact Info) Description 01/07/2016 Orders Only WUCEDRIC DANGELO CAR CLINCONV Provider, MD Maame [address] [place] [address] Social History Tobacco Use Types Packs/Day Years Used Date Smoking Tobacco: Never Comments Unknown Sex and Gender Information Value Date Recorded Sex Assigned at Not on file Legal Sex Female 6:53 AM CEO Gender Identity Not on file Sexual Orientation [...] COVID: Suspected 09/22/2021 09/22/2021 09/23/2021 3:06 AM CEO COVID: Suspected 11/11/2022 11/11/2022 11/11/2022 1:37 PM CDT documented as of this encounter Care Teams Loan Inspector Relationship Specialty Start Date End Date Yousif Benton MD [address] [place] [address] PCP - General 12/27/16 06/07/17 Unknown, Notinfile PCP - General 06/08/17 06/17/17 Yousif Benton MD [address] [place] [address] PCP - General 06/18/17 03/12/20 Micheal Burton MD [address] [place] [address] PCP - General Family Medicine 03/13/20 05/04/22 Tera Seals DO [address] [place] [address] PCP - General Family Medicine 05/05/22 Nl-Neuromuscle, [facility] - [address] [place] [address] Referring Physician Neurology 04/18/18 Yoselin Garcia RN [address] [address] [facility] Outpatient Tumbler Machine Operator Helper 01/28/21 02/24/21 Ferny Kearns MD PhD [address] [address] Referring Physician Cardiology 04/21/21 Charu Galdamez, [facility] 4590 [facility] ([facility] Mailstop [phone] [place] [address] XMPie Outpatient Tumbler Machine Operator Helper 01/24/23 02/20/23 documented as of this encounter
--- OUTSIDE RECORDS SUMMARY | 2025-03-27 18:25 | XMS_ITS | Encounter Summary ---
Author Organization [facility] Address [address] [place] [address] Phone Care Team Providers Care Client Architect Name Role Phone Yousif Benton MD Primary Care Provider [phone] Nl-Neuromuscle, Wusm - Unavailable Unavailab Micheal George MD Primary Care Provider Yoselin Garcia RN Unavailable [phone] Ferny Kearns MD PhD Unavailable [phone] Tera Seals DO Primary Care Provider Charu Galdamez [facility] Unavailable [phone] Encounter Details Date Type Department Care Team (Latest Contact Info) Description 11/01/2017 Orders Only [place] STROKE Scanning, Provider Social History Tobacco Use Types Packs/Day Years Used Date Smoking Tobacco: Never Comments Unknown Sex and Gender Information Value Date Recorded Sex Assigned at Not on file Legal Sex Female 6:53 AM CULINARY INTERNSHIP Gender Identity Not on file Sexual Orientation [...] COVID: Suspected 09/22/2021 09/22/2021 09/23/2021 3:06 AM CULINARY INTERNSHIP COVID: Suspected 11/11/2022 11/11/2022 11/11/2022 1:37 PM CDT documented as of this encounter Care Teams Client Architect Relationship Specialty Start Date End Date Yousif Benton MD [address] [facility] [place] [address] PCP - General 06/18/17 03/12/20 Micheal Burton MD [address] [place] [address] PCP - General Family Medicine 03/13/20 05/04/22 Tera Seals DO [address] [place] [address] PCP - General Family Medicine 05/05/22 Nl-Neuromuscle, [facility] [address] [place] [address] Referring Physician Neurology 04/18/18 Yoselin Garcia RN [address] [address] [facility] Outpatient Supervisor Extrusion 01/28/21 02/24/21 Ferny Kearns MD PhD [address] [address] Referring Physician Cardiology 04/21/21 Charu Galdamez, [facility] 4590 [facility] ([facility] Mailstop [phone] [place] [address] SHOP Outpatient Supervisor Extrusion 01/24/23 02/20/23 documented as of this encounter
--- OUTSIDE RECORDS SUMMARY | 2025-03-27 18:25 | XMS_ITS | Encounter Summary ---
Author Organization [facility] Address [address] [place] [address] Phone Care Team Providers Care Disk Sharpener Name Role Phone Yousif Benton MD Primary Care Provider [phone] Unknown, Notinfile Primary Care Provider Unavail able Yousif Benton MD Primary Care Provider [phone] Nl-Neuromuscle, Tawny - Unavailable Unavailab Micheal George MD Primary Care Provider Yoselin Garcia RN Unavailable [phone] Ferny Kearns MD PhD Unavailable [phone] Tera Seals DO Primary Care Provider Charu Galdamez MASONRY INSTALLER Unavailable [phone] Encounter Details Date Type Department Care Team (Late st Contact Info) Description 10/25/2015 Orders Only [facility]INCONV Provider, MD Maame [address] [place] [address] Social History Tobacco Use Types Packs/Day Years Used Date Smoking Tobacco: Never Comments Unknown Sex and Gender Information Value Date Recorded Sex Assigned at Not on file Legal Sex Female 6:53 AM BUSINESS INFORMATION CONSULTANT Gender Identity Not on file Sexual Orientation [...] COVID: Suspected 09/22/2021 09/22/2021 09/23/2021 3:06 AM BUSINESS INFORMATION CONSULTANT COVID: Suspected 11/11/2022 11/11/2022 11/11/2022 1:37 PM CDT documented as of this encounter Care Teams Disk Sharpener Relationship Specialty Start Date End Date Yousif Benton MD [address] [address] PCP - General 12/27/16 06/07/17 Unknown, Notinfile PCP - General 06/08/17 06/17/17 Yousif Benton MD [address] [address] PCP - General 06/18/17 03/12/20 Micheal Burton MD [address] [place] [address] PCP - General Family Medicine 03/13/20 05/04/22 Tera Seals DO [address] [place] [address] PCP - General Family Medicine 05/05/22 Nl-NeuromuscTawny stanley - [address] [place] [address] Referring Physician Neurology 04/18/18 Yoselin Garcia, RN [address] [facility] [address] [place] [address] RASHIDA Outpatient Video Systems Engineer 01/28/21 02/24/21 Ferny Kearns MD PhD [address] [facility] [address] [place] [address] Referring Physician Cardiology 04/21/21 Charu Galdamez LCSW [address] [facility] ([facility]) Mailstop [phone] [place] [address] SHOP Outpatient Video Systems Engineer 01/24/23 02/20/23 documented as of this encounter
--- OUTSIDE RECORDS SUMMARY | 2025-03-27 18:25 | XMS_ITS | Encounter Summary ---
Author Organization [facility] Address [address] [place] [address] Phone Care Team Providers Care Patient Relations Director Name Role Phone Yousif Benton MD Primary Care Provider [phone] Unknown, Notinfile Primary Care Provider Unavail able Yousif Benton MD Primary Care Provider [phone] -Neuromuscle, [facility] - Unavailable Unavailab Micheal George MD Primary Care Provider Yoselin Garcia RN Unavailable [phone] Ferny Kearns MD PhD Unavailable [phone] Tera Seals DO Primary Care Provider Charu Galdamez IT AUDITOR Unavailable [phone] Encounter Details Date Type Department Care Team (Late st Contact Info) Description 10/25/2015 Orders Only [facility] ADULT CLINCONV Seda Dueñas MD [address] [facility] [address] [place] [address] Social History Tobacco Use Types Packs/Day Years Used Date Smoking Tobacco: Never Comments Unknown Sex and Gender Information Value Date Recorded Sex Assigned at Not on file Legal 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 Gender Identity Not on file Sexual Orientation [...] COVID: Suspected 09/22/2021 09/22/2021 09/23/2021 3:06 AM PUBLIC HEALTH SANITARIAN COVID: Suspected 11/11/2022 11/11/2022 11/11/2022 1:37 PM CDT documented as of this encounter Care Teams Patient Relations Director Relationship Specialty Start Date End Date Yousif Benton MD [address] [address] PCP - General 12/27/16 06/07/17 Unknown, Notinfile PCP - General 06/08/17 06/17/17 Yousif Benton MD [address] [address] PCP - General 06/18/17 03/12/20 Micheal Burton MD [address] [place] [address] PCP - General Family Medicine 03/13/20 05/04/22 Tera Seals DO [address] [place] [address] PCP - General Family Medicine 05/05/22 Aga-Tawny Valdes [address] [place] [address] Referring Physician Neurology 04/18/18 Yoselin Garcia, RN [address] [facility] [address] [place] [address] RASHIDA Outpatient Agricultural Mechanic 01/28/21 02/24/21 Ferny Kearns MD PhD [address] [facility] [address] [place] [address] Referring Physician Cardiology 04/21/21 Charu Galdamez, IT AUDITOR [address] [facility] [place] [place] Mailstop [phone] [place] [address] RASHIDA Outpatient Agricultural Mechanic 01/24/23 02/20/23 documented as of this encounter
--- OUTSIDE RECORDS SUMMARY | 2025-03-27 18:25 | XMS_ITS | Encounter Summary ---
Author Organization [facility] Address [address] [place] [address] Phone Care Team Providers Care Solar Designer Name Role Phone Yousif Benton MD Primary Care Provider [phone] Unknown, Notinfile Primary Care Provider Unavail able Yousif Benton MD Primary Care Provider [phone] Nl-Neuromuscle, Tawny - Unavailable Unavailab Micheal George MD Primary Care Provider Yoselin Garcia RN Unavailable [phone] Ferny Kearns MD PhD Unavailable [phone] Tera Seals DO Primary Care Provider Charu Galdamez FARMWORKER GENERAL Unavailable [phone] Encounter Details Date Type Department Care Team (Late st Contact Info) Description 02/29/2016 Orders Only [facility] CAR CLINCONV Provider, MD Maame [address] [place] [address] Social History Tobacco Use Types Packs/Day Years Used Date Smoking Tobacco: Never Comments Unknown Sex and Gender Information Value Date Recorded Sex Assigned at Not on file 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 Gender Identity Not on file Sexual [...] COVID: Suspected 09/22/2021 09/22/2021 09/23/2021 3:06 AM THERAPEUTIC RECREATION SPECIALIST COVID: Suspected 11/11/2022 11/11/2022 11/11/2022 1:37 PM CDT documented as of this encounter Care Teams Solar Designer Relationship Specialty Start Date End Date Yousif Benton MD [address] [address] PCP - General 12/27/16 06/07/17 Unknown, Notinfile PCP - General 06/08/17 06/17/17 Yousif Benton MD [address] [address] PCP - General 06/18/17 03/12/20 Micheal Burton MD [address] [place] [address] PCP - General Family Medicine 03/13/20 05/04/22 Tera Seals DO [address] [place] [address] PCP - General Family Medicine 05/05/22 Nl-Neuromuscle, [facility] - [address] [place] [address] Referring Physician Neurology 04/18/18 Yoselin Garcia RN [address] [address] [employer] Outpatient Graduate Assistant Athletic Trainer 01/28/21 02/24/21 Ferny Kearns MD PhD [address] [address] Referring Physician Cardiology 04/21/21 Charu Galdamez, [facility] [address] [facility] ([facility] Mailstop [phone] [place] [address] [employer] Outpatient Graduate Assistant Athletic Trainer 01/24/23 02/20/23 documented as of this encounter
[2025-03-27] MEDS: SODIUM CHLORIDE 0.9% IV 1,000 ML 999 ML IV CONT ×2 (18:32→19:24)
[2025-03-27 18:56] LABS: Hematocrit 43.1 % (35.0-42.0); Hemoglobin 13.7 g/dL (11.7-13.8); Immature Granulocyte Percent A 0.4 % (0.0-0.0); Lymphocytes Absolute Auto 0.84 K/mm3 (1.10-4.50); Mean Corpuscular HGB Conc 31.8 g/dL (32-36); Mean Corpuscular Hemoglobin 32.0 pg (27.0-31.0); Mean Corpuscular Volume 100.7 fL (78.0-102.0); Nucleated Red Blood Cells Absolute Auto 0.00 K/mm3 (0.00-0.00); Nucleated Red Blood Cells Perc 0.0 % (0-0.0); Platelet Count Result 199 K/mm3 (150-420); Red Blood Count 4.28 M/mm3 (4.20-5.40); White Blood Count 6.8 K/mm3 (4.8-10.8)
[2025-03-27 18:57] LABS: Add Urine Microscopic? NO; Appearance Urine Clear (Clear); Glucose Urine UA 2+ (Negative); Leukocyte Esterase Ur Negative LEU/UL (Negative); Nitrate Urine Negative (Negative); Specific Grav Ur <= 1.005 (1.010-1.020)
[2025-03-27 19:06] LABS: Alanine Aminotransferase 17 U/L (6-35); Albumin Level 4.3 g/dL (3.5-5.1); Alkaline Phosphatase 99 U/L (38-126); Anion Gap 10 mmol/L (4-12); Aspartate Amino Transferase 33 U/L (14-36); Bilirubin,Total 1.1 mg/dL (0.2-1.3); Blood Urea Nitrogen 25 mg/dL (7-17); Calcium 9.3 mg/dL (8.4-10.2); Carbon Dioxide 25 mmol/L (22-30); Chloride 106 mmol/L (98-107); Estimated CRCL calculation 33 ml/min; Estimated Glomerular Filt Rate 39; Glucose 119 mg/dL (65-110); Lipase 127 U/L (23-300); Magnesium 2.3 mg/dL (1.6-2.3); Osmolality Calculated 297 mOsm/kg (285-295); Potassium 3.8 mmol/L (3.4-5.0); Sodium 141 mmol/L (137-145); Total Protein 7.5 g/dL (6.3-8.2)
[2025-03-27 19:10] LABS: INR 1.0; Partial Thromboplastin Time 34.7 Sec (23.9-30.70); Prothrombin Time 10.9 Seconds (9.50-12.1)
[2025-03-27 19:17] LABS: Troponin I 0.014 ng/mL (0.000-0.034)
[2025-03-27] MEDS: PIPERACILLIN/TAZOBACTAM SOD 3.375 GM in SODIUM CHLORIDE 0.9% IV 50 ML 100 ML IVPB (21:39)
--- NOTE | 2025-03-31 12:58 | PC.NURSE ---
preliminary blood cultures x2 reviewed. no growth in 24 hours
--- NOTE | 2025-04-04 13:41 | PC.NURSE ---
final blood cultures x2 reviewed. no growth in five days. no change in plan of care.
== END 2025-03-27 23:10 | disposition short-term general hospital (02) ==
PROVIDERS: Emergency Provider Emergency Medicine; PCP Family Medicine
DX: K82.9 Disease of gallbladder, unspecified (principal); E86.0 Dehydration; N17.9 Acute kidney failure, unspecified; I48.91 Unspecified atrial fibrillation; M05.9 Rheumatoid arthritis with rheumatoid factor, unspecified; I10 Essential (primary) hypertension; E03.9 Hypothyroidism, unspecified; I25.10 Atherosclerotic heart disease of native coronary artery without angina pectoris; Z86.718 Personal history of other venous thrombosis and embolism; Z79.01 Long term (current) use of anticoagulants
CPT/HCPCS: 36415; 74176; 80053; 81003; 83605; 83690; 83735; 84484; 85025; 85610; 85730; 87040; 93005; 96361; 96365; 99285; J2543; J7030

== ENCOUNTER 2025-04-17 13:26 | Outpatient (CLI) | payer MEDICARE, SELFPAY ==
--- OUTSIDE RECORDS SUMMARY | 2025-04-17 13:48 | XMS_ITS | Clinical Summary ---
Author Organization [facility] Address [address] [place] [address] Care Team Providers Care Job Cost Estimator Name Role Phone Nl-Keisha Wusm - Unavailable Unavailab Ferny Harris MD PhD Unavailable [phone] Tera Seals DO Primary Care Provider Allergies Active Allergy Reactions Criticality Noted Date Comments Gluten Diarrhea Medium 06/15/2018 Metoprolol Hallucinations Medium 11/09/2022 Wheat Diarrhea Low 12/31/2012 Medications sertraline (ZOLOFT) 100 mg tablet Take 1 tablet (100 mg total) by mouth plant pathologist before breakfast 03/23/20 20 Active atorvastatin (LIPITOR) 40 mg tablet Take 1 tablet (40 mg total) by mouth daily 90 tablet 3 11/18/19 22 Active MAGNESIUM ORAL Take 1,000 mg by mouth 2 (two) times a day Active VITAMIN A ORAL Take 1 tablet by mouth plant pathologist before breakfast Active Farxiga 10 mg tablet Take 1 tablet (10 mg total) by mouth daily 12/13/19 23 Active spironolactone (ALDACTONE) 25 mg tablet Take 0.5 tablets (12.5 mg total) by mouth every morning Active carbidopa-levo dopa (SINEMET) 10-100 mg per tablet 09/07/19 24 Active levothyroxine (SYNTHROID) 137 mcg tablet Take 1 tablet (137 mcg total) by mouth plant pathologist before breakfast 03/04/20 24 Active ascorbic acid [...] DAY 180 tablet 3 02/11/20 25 Active torsemide (DEMADEX) 20 mg tablet TAKE ONE TABLET BY MOUTH EVERY MORNING 90 tablet 2 03/24/20 25 Active clonazePAM (KlonoPIN) 1 mg tablet Take 1 tablet (1 mg total) by mouth daily 30 tablet 3 04/14/20 25 Active torsemide (DEMADEX) 20 mg tablet TAKE ONE TABLET BY MOUTH EVERY MORNING 90 tablet 3 08/11/20 24 025 Discontinued clonazePAM (KlonoPIN) 1 mg tablet TAKE ONE (1) TABLET (1 MG TOTAL) BY MOUTH NIGHTLY 30 tablet 03/16/20 25 025 Discontinued(Re order) Hospital, Clinic, or Other Facility Administered Medication [...] stable Assessment & Plan (06/27/2024 3:47 PM LIP CUTTER): If the patient is not able to [...] (09/24/2022): Added automatically from request for surgery [id number] Atrial fibrillation with RVR 09/13/2022 Assessment & Plan (09/18/2022 1:45 PM LIP CUTTER): A fib diagnosed 08/16/2022, previously on metop [...] recs Assessment & Plan (09/17/2022 9:57 AM LIP CUTTER): A fib diagnosed 08/16/2022, previously on metop [...] recs Assessment & Plan (09/16/2022 10:20 AM LIP CUTTER): A fib diagnosed 08/16/2022, previously on metop [...] recs Assessment & Plan (09/15/2022 9:09 AM LIP CUTTER): A fib diagnosed 08/16/2022, previously on metop [...] recs Assessment & Plan (09/14/2022 11:08 AM LIP CUTTER): A fib diagnosed 08/16/2022, previously on metop [...] recs Assessment & Plan (09/13/2022 3:07 PM LIP CUTTER): A fib diagnosed 08/16/2022, previously on metop [...] (08/08/2022): Added automatically from request for surgery [id number] Anemia in other chronic diseases classified else where 02/15/2022 Depression 10/31/2021 Assessment & Plan (09/18/2022 1:45 PM LIP CUTTER): Continue home sertraline, klonopin Assessment & Plan (09/17/2022 9:57 AM LIP CUTTER): Continue home sertraline, klonopin Assessment & Plan (09/16/2022 10:20 AM LIP CUTTER): Continue home sertraline, klonopin Assessment & Plan (09/15/2022 9:12 AM LIP CUTTER): Continue home sertraline, klonopin Assessment & Plan (09/14/2022 11:08 AM LIP CUTTER): Continue home sertraline, klonopin Assessment & Plan (09/13/2022 3:12 PM LIP CUTTER): Continue home sertraline Assessment & Plan (11/01/2021 1:41 PM CDT): -Cont Clonazapam nightly and Sertraline 100 Assessment & Plan (10/31/2021 5:51 PM CDT): -Cont Clonazapam nightly and Sertraline 100 Coronary artery disease 08/18/2021 Overview (08/18/2021): Added automatically from request for surgery [id number] Assessment & Plan (12/13/2022 6:51 PM CDT): S/p LHC and PCI 08/2021: RCA and LCx, 10/2021: LAD and diagonal -Cont home Plavix 75, atorvastatin 40 + losartan 12.5 Assessment & Plan (09/18/2022 1:45 PM LIP CUTTER): S/p PCI 3/22 - plavix and xarelto on hold for procedure - metop as above - continue statin Assessment & Plan (09/17/2022 9:57 AM LIP CUTTER): S/p PCI 3/22 - plavix and xarelto on hold for procedure - metop as above - continue statin Assessment & Plan (09/16/2022 10:20 AM LIP CUTTER): S/p PCI 3/22 - plavix and xarelto on hold for procedure - metop as above - continue statin Assessment & Plan (09/15/2022 9:12 AM LIP CUTTER): S/p PCI 3/22 - plavix and xarelto on hold for procedure - metop as above - continue statin Assessment & Plan (09/14/2022 11:08 AM LIP CUTTER): S/p PCI 11/01 - plavix and xarelto on hold for procedure - metop as above - continue statin Assessment & Plan (09/13/2022 3:08 PM LIP CUTTER): S/p PCI 11/01 - plavix and xarelto [...] well Assessment & Plan (10/15/2024 4:24 PM LIP CUTTER): Continue Losartan and follow up with cardiology [...] farixga Assessment & Plan (09/18/2022 1:45 PM LIP CUTTER): EF 40%, 2/2 ischemic CM - taking [...] recs Assessment & Plan (09/17/2022 9:57 AM LIP CUTTER): EF 40%, 2/2 ischemic CM - taking [...] recs Assessment & Plan (09/16/2022 10:20 AM LIP CUTTER): EF 40%, 2/2 ischemic CM - taking [...] recs Assessment & Plan (09/15/2022 9:11 AM LIP CUTTER): EF 40%, 2/2 ischemic CM - taking [...] recs Assessment & Plan (09/14/2022 11:08 AM LIP CUTTER): EF 40%, 2/2 ischemic CM - taking lasix as needed at home - BNP elevated on admission, not clinically volume overloaded on exam - s/p 1u pRBC 2/, will hold further IVF - will give lasix IV 40mg x1 2/2 - repeat TTE - cards c/s- appreciate recs Assessment & Plan (09/13/2022 3:11 PM LIP CUTTER): EF 40%, 2/2 ischemic CM - taking [...] 03/2020 - appears comfortable upon transfer to [facility], exam improved with IV diuresis - diuresis [...] 03/2020 - appears comfortable upon transfer to [facility], exam improved with IV diuresis - diuresis [...] 03/2020 - appears comfortable upon transfer to [facility], exam improved with IV diuresis - diuresis [...] 03/2020 - appears comfortable upon transfer to [facility], warm and wet on exam - will [...] (02/17/2021): Added automatically from request for surgery [id number] Assessment & Plan (06/27/2024 3:48 PM LIP CUTTER): Based on today's blood work she is [...] (02/17/2021): Added automatically from request for surgery [id number] Assessment & Plan (12/11/2024 6:03 PM CDT): Continue close monitoring of her hemoglobin and iron stores. The patient will continue close follow-up with Hematology Deep vein thrombosis (DVT) associated with COVID -19 09/13/2020 Assessment & Plan (09/18/2022 1:45 PM LIP CUTTER): Hold home xarelto for procedure as above Assessment & Plan (09/17/2022 9:57 AM LIP CUTTER): Hold home xarelto for procedure as above Assessment & Plan (09/16/2022 10:20 AM LIP CUTTER): Hold home xarelto for procedure as above Assessment & Plan (09/15/2022 9:12 AM LIP CUTTER): Hold home xarelto for procedure as above Assessment & Plan (09/14/2022 11:08 AM LIP CUTTER): Hold home xarelto for procedure as above Assessment & Plan (09/13/2022 3:13 PM LIP CUTTER): Hold home xarelto for procedure as above [...] 07/03/2020 Assessment & Plan (07/04/2020 11:44 AM LIP CUTTER): CT C/A/P 07/02 showed extensive portal venous [...] dc. 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 - Switched from Xarelto to [...] 07/03/2020 Assessment & Plan (07/04/2020 11:28 AM LIP CUTTER): Unclear etiology, likely related to underlying GI [...] (04/29/2020): Added automatically from request for surgery [id number] Gastroesophageal reflux disease 02/11/2020 Overview (02/11/2020): Added automatically from request for surgery [id number] Assessment & Plan (12/11/2024 6:02 PM CDT): Continue PPI Assessment & Plan (06/27/2024 3:44 PM LIP CUTTER): The patient will continue Protonix Assessment & [...] CBC Assessment & Plan (07/04/2020 11:33 AM LIP CUTTER): - Cont PPI daily Assessment & Plan (07/03/2020 11:50 AM LIP CUTTER): - Cont PPI daily Assessment & Plan (07/02/2020 1:59 PM LIP CUTTER): - Cont PPI daily Assessment & Plan (07/01/2020 2:59 PM LIP CUTTER): - Cont PPI daily Assessment & Plan (06/30/2020 2:10 PM LIP CUTTER): - Cont PPI IV BID Assessment & Plan (06/29/2020 2:04 PM LIP CUTTER): - Cont PPI IV BID Assessment & Plan (06/28/2020 2:09 PM LIP CUTTER): - Cont PPI IV BID Assessment & Plan (06/27/2020 6:05 AM LIP CUTTER): Currently starting pantoprazole 40 mg IV b.i.d. pending evaluation for GI bleed. Dysphagia 02/11/2020 Overview (02/11/2020): Added automatically from request for surgery [id number] Allergic rhinitis 08/11/2019 Periodic limb movement disorder [...] future Assessment & Plan (10/15/2024 4:22 PM LIP CUTTER): I have reinforced that she must use [...] future Assessment & Plan (07/04/2020 11:33 AM LIP CUTTER): History of bronchiectasis per imaging and mild [...] now Assessment & Plan (07/03/2020 12:53 PM LIP CUTTER): History of bronchiectasis per imaging and mild [...] now Assessment & Plan (07/02/2020 2:00 PM LIP CUTTER): History of bronchiectasis per imaging and mild obstructive pulmonary disease per PFTs with patient recently prescribed albuterol and Symbicort which she reports she does not take as she does not really have any pulmonary symptoms except for when she was recently hospitalized with COVID-19 - Continue to monitor for now Assessment & Plan (07/01/2020 3:00 PM LIP CUTTER): History of bronchiectasis per imaging and mild obstructive pulmonary disease per PFTs with patient recently prescribed albuterol and Symbicort which she reports she does not take as she does not really have any pulmonary symptoms except for when she was recently hospitalized with COVID-19 - Continue to monitor for now Assessment & Plan (06/30/2020 2:10 PM LIP CUTTER): History of bronchiectasis per imaging and mild obstructive pulmonary disease per PFTs with patient recently prescribed albuterol and Symbicort which she reports she does not take as she does not really have any pulmonary symptoms except for when she was recently hospitalized with COVID-19. - Continue to monitor for now Assessment & Plan (06/29/2020 2:04 PM LIP CUTTER): History of bronchiectasis per imaging and mild obstructive pulmonary disease per PFTs with patient recently prescribed albuterol and Symbicort which she reports she does not take as she does not really have any pulmonary symptoms except for when she was recently hospitalized with COVID-19. - Continue to monitor for now Assessment & Plan (06/28/2020 2:09 PM LIP CUTTER): History of bronchiectasis per imaging and mild obstructive pulmonary disease per PFTs with patient recently prescribed albuterol and Symbicort which she reports she does not take as she does not really have any pulmonary symptoms except for when she was recently hospitalized with COVID-19. - Continue to monitor for now Assessment & Plan (06/27/2020 6:03 AM LIP CUTTER): History of bronchiectasis per imaging and mild [...] 07/10/2018 Assessment & Plan (08/15/2019 12:53 PM LIP CUTTER): - 73 y.o. woman with balance problems [...] worsens Assessment & Plan (07/07/2019 11:49 AM LIP CUTTER): - 73 y.o. woman with balance problems [...] tTG. 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 Although, pt and family report that patient has been strict with her diet. 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 - GI c/s for inpatient scopes as above Assessment & Plan (06/29/2020 2:03 PM LIP CUTTER): Continue gluten and wheat free diet once allowed to eat pending planned procedures. - GI c/s for inpatient scopes as above Assessment & Plan (06/28/2020 2:07 PM LIP CUTTER): Continue gluten and wheat free diet once allowed to eat pending planned procedures. - GI c/s for inpatient scopes as above Assessment & Plan (06/27/2020 6:03 AM LIP CUTTER): Continue gluten and wheat free diet once allowed to eat pending planned procedures. 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 -I d/w GI biliary - plan for EUS-guided biopsy today Assessment & Plan (06/17/2018 12:43 PM LIP CUTTER): -seen on OSH chest CT after review by our radiologists. They recommend standard protocol C/A/P CT with contrast to better evaluate -add on LDH Pericardial effusion 06/15/2018 Assessment & Plan (06/27/2020 6:07 AM LIP CUTTER): History of duodenal ulcer. Continue PPI as above. Assessment & Plan (06/18/2018 10:11 AM LIP CUTTER): -reported large pericardial effusion, but only small here on echo and on review of OSH CT -possibly related to mediastinal mass Assessment & Plan (06/17/2018 12:49 PM LIP CUTTER): -reported large pericardial effusion, but only small here on echo and on review of OSH CT -possibly related to mediastinal mass -further imaging as above. Assessment & Plan (06/16/2018 11:08 AM LIP CUTTER): Transferred from OSH with c/f new pericardial [...] 05/18/2018 Assessment & Plan (07/04/2020 11:30 AM LIP CUTTER): History of RA, PMR and fibromyalgia followed by rheumatology Dr. Robertson and managed with methotrexate. Patient reports being out of methotrexate for 2 weeks and being unable to contact her neurology physician assistant during this period of time. - Cont holding methotrexate, may resume at ct Assessment & Plan (07/03/2020 11:14 AM LIP CUTTER): History of RA, PMR and fibromyalgia followed by rheumatology Dr. Robertson and managed with methotrexate. Patient reports being out of methotrexate for 2 weeks and being unable to contact her neurology physician assistant during this period of time. - Cont holding methotrexate in setting of ALEXANDRA, may resume at ct Assessment & Plan (07/02/2020 1:59 PM LIP CUTTER): History of RA, PMR and fibromyalgia followed by rheumatology Dr. Robertson and managed with methotrexate. Patient reports being out of methotrexate for 2 weeks and being unable to contact her neurology physician assistant during this period of time. - Cont holding methotrexate in setting of ALEXANDRA, may resume at dc Assessment & Plan (07/01/2020 2:58 PM LIP CUTTER): History of RA, PMR and fibromyalgia followed by rheumatology Dr. Robertson and managed with methotrexate. Patient reports being out of methotrexate for 2 weeks and being unable to contact her neurology physician assistant during this period of time. - Cont holding methotrexate in setting of ALEXANDRA, may resume at dc Assessment & Plan (06/30/2020 2:09 PM LIP CUTTER): History of RA, PMR and fibromyalgia followed by rheumatology Dr. Robertson and managed with methotrexate. Patient reports being out of methotrexate for 2 weeks and being unable to contact her neurology physician assistant during this period of time. - Cont holding methotrexate in setting of ALEXANDRA - Touch base with Rheumatology regarding refills Assessment & Plan (06/29/2020 2:03 PM LIP CUTTER): History of RA, PMR and fibromyalgia followed by rheumatology Dr. Robertson and managed with methotrexate. Patient reports being out of methotrexate for 2 weeks and being unable to contact her neurology physician assistant during this period of time. - Cont holding methotrexate in setting of ALEXANDRA -Touch base with Rheumatology regarding refills Assessment & Plan (06/28/2020 1:58 PM LIP CUTTER): History of RA, PMR and fibromyalgia followed by rheumatology Dr. Robertson and managed with methotrexate. Patient reports being out of methotrexate for 2 weeks and being unable to contact her neurology physician assistant during this period of time. - Cont holding methotrexate in setting of ALEXANDRA -Touch base with Rheumatology regarding refills Assessment & Plan (06/27/2020 6:08 AM LIP CUTTER): History of RA, PMR and fibromyalgia followed by rheumatology Dr. Robertson and managed with methotrexate. Patient reports being at a methotrexate for 2 weeks and being unable to contact her neurology physician assistant during this period of time. -given acute renal failure reported by the patient at the outside hospital, it may have actually been beneficial that she was not taking methotrexate during this time. -follow admission creatinine, continue holding methotrexate for now -touch base with Rheumatology regarding refills Assessment & Plan (06/18/2018 10:09 AM LIP CUTTER): -Serologic workup for underlying rheumatic disease unremarkable. No active synovitis on exam. -Largely resolved. Assessment & Plan (06/17/2018 12:45 PM LIP CUTTER): -Serologic workup for underlying rheumatic disease unremarkable. No active synovitis on exam. Assessment & Plan (06/16/2018 11:12 AM LIP CUTTER): Noted joint pains, diffusely, mainly left shoulder. [...] 8 Assessment & Plan (07/07/2020 4:12 PM LIP CUTTER): Hx chronic diarrhea, possible celiac, initially bloody, [...] PRN. Assessment & Plan (07/04/2020 11:25 AM LIP CUTTER): Hx of chronic diarrhea in setting of [...] <7 Assessment & Plan (07/03/2020 12:57 PM LIP CUTTER): Hx of chronic diarrhea in setting of [...] <7 Assessment & Plan (07/02/2020 2:05 PM LIP CUTTER): Hx of chronic diarrhea in setting of [...] recs Assessment & Plan (07/01/2020 3:08 PM LIP CUTTER): Hx of chronic diarrhea in setting of [...] recs Assessment & Plan (06/30/2020 2:13 PM LIP CUTTER): Hx of chronic diarrhea in setting of [...] EGD/C-scope Assessment & Plan (06/29/2020 1:59 PM LIP CUTTER): Hx of chronic diarrhea in setting of [...] signed Assessment & Plan (06/28/2020 2:14 PM LIP CUTTER): Hx of chronic diarrhea in setting of [...] signed Assessment & Plan (06/27/2020 6:14 AM LIP CUTTER): Patient with chronic diarrhea in setting of [...] signed Assessment & Plan (06/18/2018 10:10 AM LIP CUTTER): Resolved with gluten-free diet, although biopsies weren't consistent with celiac Assessment & Plan (06/17/2018 12:45 PM LIP CUTTER): Resolved with gluten-free diet Assessment & Plan (06/16/2018 11:00 AM LIP CUTTER): Resolved. Assessment & Plan (06/15/2018 5:37 AM [...] 05/17/2018 Assessment & Plan (06/18/2018 10:10 AM LIP CUTTER): -cont therapeutic Lovenox (holding dose for procedure today) Assessment & Plan (06/17/2018 12:47 PM LIP CUTTER): -cont therapeutic Lovenox Assessment & Plan (06/15/2018 [...] oxybutynin Assessment & Plan (07/04/2020 11:29 AM LIP CUTTER): - Cont oxybutynin Assessment & Plan (07/03/2020 11:14 AM LIP CUTTER): - Cont oxybutynin Assessment & Plan (07/02/2020 1:59 PM LIP CUTTER): - Cont oxybutynin Assessment & Plan (07/01/2020 2:58 PM LIP CUTTER): - Cont oxybutynin Assessment & Plan (06/30/2020 2:10 PM LIP CUTTER): - Cont oxybutynin - Cr now improving, maykel shaffer'justin Assessment & Plan (06/29/2020 2:03 PM LIP CUTTER): - Cont oxybutynin - Cr now improving, maykel shaffer'justin Assessment & Plan (06/28/2020 2:00 PM LIP CUTTER): - Cont oxybutynin - Cr now improving, will dc brar and do a void trial Assessment & Plan (06/27/2020 6:07 AM LIP CUTTER): Resume oxybutynin. Currently with Brar in place. Pending creatinine will remove Brar and attempt voiding trial. Assessment & Plan (05/17/2018 2:16 AM CDT): Continue home Mybretriq Hypothyroidism 05/17/2016 Assessment & Plan (12/13/2022 6:48 PM CDT): -Cont home Synthroid 137 Assessment & Plan (09/18/2022 1:45 PM LIP CUTTER): Continue home synthroid - check TSH given RVR- wnl Assessment & Plan (09/17/2022 9:58 AM LIP CUTTER): Continue home synthroid - check TSH given RVR- wnl Assessment & Plan (09/16/2022 10:21 AM LIP CUTTER): Continue home synthroid - check TSH given RVR- wnl Assessment & Plan (09/15/2022 9:12 AM LIP CUTTER): Continue home synthroid - check TSH given RVR- wnl Assessment & Plan (09/14/2022 11:09 AM LIP CUTTER): Continue home synthroid - check TSH given RVR- wnl Assessment & Plan (09/13/2022 3:10 PM LIP CUTTER): Continue home synthroid - check TSH given [...] now Assessment & Plan (07/04/2020 11:29 AM LIP CUTTER): - TSH 2.16, continue home Synthroid Assessment & Plan (07/03/2020 11:13 AM LIP CUTTER): - TSH 2.16, continue home Synthroid Assessment & Plan (07/02/2020 1:59 PM LIP CUTTER): - TSH 2.16, continue home Synthroid Assessment & Plan (07/01/2020 2:59 PM LIP CUTTER): - TSH 2.16, continue home Synthroid Assessment & Plan (06/30/2020 2:10 PM LIP CUTTER): - TSH 2.16, continue home Synthroid Assessment & Plan (06/29/2020 2:03 PM LIP CUTTER): - TSH 2.16, continue home Synthroid Assessment & Plan (06/28/2020 1:57 PM LIP CUTTER): - TSH 2.16, continue home Synthroid Assessment & Plan (06/27/2020 6:06 AM LIP CUTTER): Add on TSH, continue home Synthroid. Assessment & Plan (06/18/2018 10:10 AM LIP CUTTER): -cont levothyroxine Assessment & Plan (06/17/2018 12:47 PM LIP CUTTER): -cont levothyroxine Assessment & Plan (06/16/2018 11:03 AM LIP CUTTER): Checked TSH and progressive elevation to 9.10 [...] protocol Assessment & Plan (06/18/2018 10:09 AM LIP CUTTER): Continue home nocturnal CPAP at 9 Assessment & Plan (06/17/2018 12:45 PM LIP CUTTER): Continue home CPAP at 9. Compliant with CPAP as inpatient. Assessment & Plan (06/16/2018 11:03 AM LIP CUTTER): Continue home CPAP at 9. Compliant with [...] above Assessment & Plan (07/04/2020 11:29 AM LIP CUTTER): - Hold losartan in setting of ALEXANDRA, normotensive, may resume at dc Assessment & Plan (07/03/2020 11:13 AM LIP CUTTER): - Hold losartan in setting of ALEXANDRA, normotensive, may resume at dc Assessment & Plan (07/02/2020 1:59 PM LIP CUTTER): - Hold losartan in setting of ALEXANDRA, may resume at dc Assessment & Plan (07/01/2020 2:59 PM LIP CUTTER): - Hold losartan in setting of ALEXANDRA, may resume at dc Assessment & Plan (06/30/2020 2:10 PM LIP CUTTER): - Hold losartan in setting of ALEXANDRA Assessment & Plan (06/29/2020 2:03 PM LIP CUTTER): - Hold losartan in setting of ALEXANDRA Assessment & Plan (06/28/2020 1:56 PM LIP CUTTER): - Holding losartan in setting of ALEXANDRA Assessment & Plan (06/27/2020 6:06 AM LIP CUTTER): Holding losartan 25 mg daily given reported [...] (07/06/2020): Assessment & Plan (07/07/2020 4:10 PM LIP CUTTER): 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 With some somnolence 07/05. Improved after holding home klonopin. Also holding ropinirole. Developed some mild withdrawal tremors with holding klonopin so resumed today and will recommend to taper on outpatient basis given propensity for delirium. Assessment & Plan (07/04/2020 11:27 AM LIP CUTTER): Appeare confused/lethargic over the last few days, [...] Delirium and fall precautions - Hold some ACCOUNTS RECEIVABLE CLERK affecting meds Assessment & Plan (07/03/2020 12:52 PM LIP CUTTER): Appears confused/lethargic over the last few days, [...] and fall precautions - Will hold some ACCOUNTS RECEIVABLE CLERK affecting meds Assessment & Plan (07/02/2020 2:08 PM LIP CUTTER): Appears confused over the last few days, [...] precautions Assessment & Plan (07/01/2020 3:24 PM LIP CUTTER): Appeared confused yesterday and today, daughter reports [...] 10/31/2021 Assessment & Plan (07/04/2020 11:33 AM LIP CUTTER): - Recovered - diagnosed 05/23, repeat covid Ag testing negative Assessment & Plan (07/03/2020 12:12 PM LIP CUTTER): - Recovered - diagnosed 05/22, repeat covid Ag testing negative Assessment & Plan (07/02/2020 1:59 PM LIP CUTTER): - Recovered - diagnosed 05/22, repeat covid Ag testing negative Assessment & Plan (07/01/2020 2:59 PM LIP CUTTER): - Recovered - diagnosed 05/22, repeat covid Ag testing negative Assessment & Plan (06/30/2020 2:10 PM LIP CUTTER): Recovered - diagnosed 05/22, repeat covid Ag testing negative Assessment & Plan (06/29/2020 2:06 PM LIP CUTTER): Recovered - diagnosed 05/22, repeat covid Ag testing negative Assessment & Plan (06/28/2020 2:10 PM LIP CUTTER): History of COVID-19 infection initially diagnosed in May 22, 2020 at an OSH. Labs not currently available for review. Patient required hospitalization for decreased saturations although is now recovered. - Repeat COVID swab negative here Assessment & Plan (06/27/2020 6:18 AM LIP CUTTER): History of COVID-19 infection initially diagnosed in [...] 10/31/2021 Assessment & Plan (07/06/2020 3:49 PM LIP CUTTER): Urine culture with pansensitive E coli at OSH. S/p 5 days of abx at OSH and 5d CTX here. Assessment & Plan (07/04/2020 11:29 AM LIP CUTTER): Urine culture with pansensitive E coli at OSH. Unclear what antibiotic she was receiving although presumably she had received 5 days of it. - Repeat UA 2+ LE, 11-20 wbc 3+ yeast - Urine cx no growth, no urinary symptoms - Completed 5 days of CTX here Assessment & Plan (07/03/2020 11:13 AM LIP CUTTER): Urine culture with pansensitive E coli at OSH. Unclear what antibiotic she was receiving although presumably she has received 5 days of it. - Repeat UA 2+ LE, 11-20 wbc 3+ yeast - no urinary symptoms - Urine cx no growth - Completed 5 days of CTX here on 07/01 Assessment & Plan (07/02/2020 1:58 PM LIP CUTTER): Urine culture with pansensitive E coli at OSH. Unclear what antibiotic she was receiving although presumably she has received 5 days of it. - Repeat UA 2+ LE, 11-20 wbc 3+ yeast - no urinary symptoms - Urine cx no growth - Completed 5 days of CTX here on 07/01 Assessment & Plan (07/01/2020 2:58 PM LIP CUTTER): Urine culture with pansensitive E coli at OSH. Unclear what antibiotic she was receiving although presumably she has received 5 days of it. - Repeat UA 2+ LE, 11-20 wbc 3+ yeast - no urinary symptoms - Urine cx no growth - Continue CTX Assessment & Plan (06/30/2020 2:09 PM LIP CUTTER): Urine culture with pansensitive E coli. Unclear what antibiotic she was receiving although presumably she has received 5 days of it. - Repeat UA 2+ LE, 11-20 wbc 3+ yeast - no urinary symptoms - Urine cx no growth - Continue CTX for now Assessment & Plan (06/29/2020 2:03 PM LIP CUTTER): Urine culture with pansensitive E coli. Unclear what antibiotic she was receiving although presumably she has received 5 days of it. - Repeat UA 2+ LE, 11-20 wbc 3+ yeast - no urinary symptoms - Urine cx no growth - Continues to have rising leukocytosis, will resume CTX and CTM Assessment & Plan (06/28/2020 2:13 PM LIP CUTTER): Urine culture with pansensitive E coli. Unclear what antibiotic she was receiving although presumably she has received 5 days of it. - Repeat UA 2+ LE, 11-20 wbc 3+ yeast - no urinary symptoms - Urine cx no growth - Dc empiric CTX Assessment & Plan (06/27/2020 6:14 AM LIP CUTTER): Urine culture with pansensitive E coli. Unclear what antibiotic she was receiving although presumably she has received 5 days of it. Will repeat UA and decide on re-initiation of antibiotics at that point. Fatigue 08/11/2019 10/31/2021 VTE (venous thromboembolism) 05/22/2019 10/31/2021 Assessment & Plan (07/04/2020 11:32 AM LIP CUTTER): History of unprovoked PE and lower extremity [...] gtt. Assessment & Plan (07/03/2020 12:52 PM LIP CUTTER): History of unprovoked PE and lower extremity [...] 07/02 Assessment & Plan (07/02/2020 1:58 PM LIP CUTTER): History of unprovoked PE and lower extremity [...] EGD/C-scope Assessment & Plan (07/01/2020 2:57 PM LIP CUTTER): History of unprovoked PE and lower extremity [...] EGD/C-scope Assessment & Plan (06/30/2020 2:08 PM LIP CUTTER): History of unprovoked PE and lower extremity [...] hold Assessment & Plan (06/29/2020 2:04 PM LIP CUTTER): History of unprovoked PE and lower extremity [...] hold Assessment & Plan (06/28/2020 2:08 PM LIP CUTTER): History of unprovoked PE and lower extremity [...] hold Assessment & Plan (06/27/2020 6:05 AM LIP CUTTER): History of unprovoked PE and lower extremity [...] 06/18/2018 Assessment & Plan (06/16/2018 10:57 AM LIP CUTTER): Resolving sepsis due to PNA. Febrile and [...] 07/30/2018 Assessment & Plan (07/07/2019 11:41 AM LIP CUTTER): 2 Elevated INR 05/20/2018 05/21/2018 Assessment & [...] Encounters Date Type Department Care Team Description 03/28/2025 8:21 AM CDT - 03/28/2025 5:00 PM CDT Emergency [facility] Emergency Department [address] [place] [address] Margy Sharpe MD Diagnosis unknown (Primary Dx); Diarrhea due to malabsorption Discharge Disposition: Discharge to home or self care 03/09/2025 1:30 PM CDT Office Visit [facility] Medicine Cardiology [address] [place] [address] Nicki Woodall NP Chronic systolic heart failure (HCC) (Primary Dx); Hypertension 03/09/2025 Telephone [facility] Medicine Cardiology [address] [place] [address] [place] [id number] Ferny Kearns MD PhD 03/02/2025 Patient Outreach [facility] Medicine Care Coordination [address] [place] [address] Ashley Starks from Last 3 Months Immunizations [...] insufficiency Pneumonia 05/2019 DVT (deep venous thrombosis) 2017 PE ERIKA positive COVID-19 virus detected 05/23/2020 E-coli UTI 01/26/2021 Status post placement of implantable loop record er 2012 Hypertension Coronary artery disease CHF (congestive heart failure) ([facility]) Anemia persistent Portal vein thrombosis 2020 A-fib ([facility]) 08/16/2022 Anxiety Hyperlipidemia History of blood transfusion [...] week 01/24/2023 How often do you attend [facility] or mormonism services? Never 01/24/2023 Do you belong to any clubs o r organizations such as orthodoxy groups, unions, fraternal or athletic groups, or [...] making you feel afraid or unsafe? Denies 03/28/2025 Comments No Sex and Gender Information Value Date Recorded Sex Assigned at Not on file Legal Sex Female 6:53 AM LIP CUTTER Gender Identity Not on file Sexual Orientation Not on file Obstetrics History Last Filed Vital Signs Vital Sign Reading Time Taken Comments Blood Pressure 150/82 03/28/2025 1:46 PM CDT Pulse 88 03/28/2025 1:46 PM CDT Temperature 36.6 C (97.8 F) 03/28/2025 4:14 AM CDT Respiratory Rate 15 03/28/2025 1:46 PM CDT Oxygen Saturation 96% 03/28/2025 1:46 PM CDT Inhaled Oxygen Concentration - - Weight 72.1 kg (159 lb) 03/28/2025 12:24 AM CDT Height 175.3 cm (5' 9) 03/28/2025 12:24 AM CDT Body Mass Index 23.48 03/28/2025 12:24 AM CDT Plan of Treatment Health Maintenance [...] 12/16/2020, 12/02/2019 Medical Devices Implanted Type Area Sweat Band Separator Device Identifier Shelf Expiration Date Model / Serial / Lot [employer] Vascade Mvp 6-12fr Venous Closure [id number] - [id number] - [id number] Implanted:Qty: 1 on 12/13/2022 by Yohan Carpenter MD at [facility] Collagen Right: Femoral Vein [employer] 09/12/2024 [id number] [id number] / [id number] / [id number] [employer] Vascade Mvp 6-12fr Venous Closure [id number] - [id number] - [id number] Implanted:Qty: 1 on 12/13/2022 by Yohan Carpenter MD at [facility] Collagen Left: Femoral Vein [employer] 09/12/2024 800-612C- 10U / [id number] / [id number] [employer] Vascade Mvp 6-12fr Venous Closure [id number] - [id number] - [id number] Implanted:Qty: 1 on 12/13/2022 by Yohan Carpenter MD at [facility] Collagen Left: Femoral Vein [employer] 09/12/2024 800-612C- 10U / [id number] / [id number] [employer] Device Closure Vascade Od5 Fr Femoral Artery [id number] - [id number] - [id number] Implanted:Qty: 1 on 12/13/2022 by Yohan Carpenter MD at [facility] Collagen Right: Femoral Vein [employer] 09/04/2024 [id number] -[id number] / [id number] / Med[employer] X [id number] Resolute [place] 3.5mm 2.1-2.7fr 18mm 140cm Rapid Exchange - [id number] Implanted:Qty: 1 on 08/18/2021 by Hero Hernandez MD at [facility] Stent Medtronic Inc 06/10/2024 [id number] / / [id number] [employer] [id number] Stent Coronary De Rx Cocr Ors Msn 2.5x35mm - [id number] Implanted:Qty: 1 on 08/18/2021 by Hero Hernandez MD at [facility] Stent [employer] Inc 02/28/2023 [id number] / / [id number] [place] [employer] [place] [id number] Synergy Xd Monorail 2.75mm 32mm 144cm Delivery System 1 Access - [id number] Implanted:Qty: 1 on 10/31/2021 by Hero Hernandez MD at [facility] Stent [place] [employer] 11/18/2022 [id number] / / [id number] [place] [employer] [id number] Synergy Xd Monorail 3mm 16mm 144cm Delivery System 1 Access Port - [id number] Implanted:Qty: 1 on 10/31/2021 by Hero Hernandez MD at [facility] Stent [place] [employer] 01/19/2023 [id number] / / [id number] [place] [employer] [id number] Synergy Xd Monorail 2.25mm 12mm 144cm Delivery System 1 Access - [id number] Implanted:Qty: 1 on 10/31/2021 by Heor Hernandez MD at [facility] Stent [place] [employer] 06/08/2023 [id number] / / [id number] [place] [employer] [id number] Synergy Xd Monorail 2.25mm 16mm 144cm Delivery System 1 Access - [id number] Implanted:Qty: 1 on 10/31/2021 by Hero Hernandez MD at [facility] Stent [place] [employer] 12/14/2022 [id number] / / [id number] Breast Bilateral: Breast Explanted Type Area Sweat Band Separator Device Identifier Shelf Expiration Date Model / Serial / Lot Implantable Loop Recorder-07/09 Implanted:06/14 (Quantity not on file) Explanted:03/13 (Quantity not on file) Implantable Loop Recorder N/A: Heart [employer] / / Procedures Procedure Name Priority Date/Time Associated Diagnosis Comments RESPIRATORY PATHOGEN PANEL STAT 03/28/2025 4:30 PM CDT EGFR STAT 03/28/2025 1:48 PM CDT COMPREHENSIVE METABOLIC PANEL STAT 03/28/2025 1:48 PM CDT US RUQ ED 03/28/2025 1:[address] BODY OUTSIDE CONSULT Routine 03/28/2025 12:15 PM CDT Diagnosis unknown ECG 12-LEAD Routine 03/28/2025 10:50 AM CDT EGFR STAT 03/28/2025 12:30 AM CDT DIFFERENTIAL AUTO STAT 03/28/2025 12: 30 AM CDT LIPASE STAT 03/28/2025 12:30 AM CDT COMPREHENSIVE METABOLIC PANEL STAT 03/28/2025 12:30 AM CDT CBC WITH AUTO DIFFERENTIAL STAT 03/28/2025 12:30 AM CDT ECG 12-LEAD Routine 03/09/2025 1:53 PM CDT Chronic systolic heart failure (HCC) COLONOSCOPY 03/10/2021 11:25 AM CDT HEPATITIS C ANTIBODY Routine 08/23/2018 11:13 AM LIP CUTTER Eosinophilia from Last 3 Months or Most Recently Relevant to Health Maintenance Results * Respiratory pathogen panel Nasopharyngeal (03/28/2025 4:30 PM CDT) Pathologist [facility] Influenza A RNA Not Detected Not Detected Influenza B RNA Not Detected Not Detected [facility] RSV RNA Not Detected Not Detected [facility] COVID-19 RNA Not Detected Not Detected [facility] Coronavirus 229E RNA Not Detected Not Detected [facility] Coronavirus HKU1 RNA Not Detected Not Detected [facility] Coronavirus NL63 RNA Not Detected Not Detected [facility] Coronavirus OC43 RNA Not Detected Not Detected [facility] Adenovirus DNA Not Detected Not Detected [facility] Metapneumovirus RNA Not Detected Not Detected [facility] Rhinovirus/Enterov irus RNA Not Detected Not Detected [facility] Parainfluenza 1 RNA Not Detected Not Detected [facility] Parainfluenza 2 RNA Not Detected Not Detected [facility] Parainfluenza 3 RNA Not Detected Not Detected [facility] Parainfluenza 4 RNA Not Detected Not Detected [facility] B. pertussis DNA Not Detected Not Detected [facility] B. parapertussis DNA Not Detected Not Detected [facility] C. pneumoniae DNA Not Detected Not Detected [facility] M. pneumoniae DNA Not Detected Not Detected [facility] Nasopharyngeal 03/28/2025 4: 30 PM CDT 03/28/2025 4:52 PM CDT Narrative [facility] - 03/28/2025 6:00 PM CDT Is the Patient experiencing symptoms consistent with COVID?->No Surveillance testing for transplant patient?->No Interpretive Data The Victor FilmArray Respiratory Panel (RP2.1) assay is a multiplexed real-time PCR based nucleic acid test capable of simultaneous qualitative detection and identification of multiple respiratory viral and bacterial nucleic acids, including SARS Coronavirus 2 (the causative agent of COVID-19). The following bacteria, viruses and virus subtypes can be identified using the FilmArray RP2.1 assay: Bordetella pertussis, Bordetella parapertussis, Chlamydia pneumoniae, Mycoplasma pneumoniae, Adenovirus, SARS Coronavirus 2, seasonal coronaviruses (Coronavirus HKU1, Coronavirus NL63, Coronavirus 229E, and Coronavirus OC43), Influenza A, Influenza A subtype H1, Influenza A subtype H3, Influenza A subtype 2009 H1, Influenza B, Metapneumovirus, Parainfluenza 1, Parainfluenza 2, Parainfluenza 3, Parainfluenza 4, RSV, Rhinovirus/Enterovirus. Due to the genetic similarity between human Rhinovirus and Enterovirus, the FilmArray RP2.1 assay cannot reliably differentiate them. Coronavirus OC43 may cross-react with some isolates of Coronavirus HKU1. A dual positive result may be due to cross-reactivity or may indicate a co- infection. The detection and identification of specific viral and bacterial nucleic acids from individuals exhibiting signs and symptoms of a respiratory infection aids in the diagnosis of respiratory infection if used in conjunction with other clinical and epidemiological information. The results of this test should not be used as the sole basis for diagnosis, treatment, or other management decisions. Negative results in the setting of a respiratory illness may be due to infection with pathogens that are not detected by this test. Positive results do not rule out infection/co-infection with other organisms. The agent(s) detected by the FilmArray RP2.1 may not be the definite cause of disease. Additional testing (lab, imaging, etc.) may be necessary when evaluating a patient with possible respiratory tract infection. The FilmArray RP2.1 assay has FDA clearance for testing of INVISIBLE BRACES ORTHODONTIST swabs. The performance of additional specimen types has been assessed by the performing laboratory. The performance characteristics of this assay have been determined by [facility]. Current interpretive data was last revised on 22. Lc Noguera MD LAB MICROBIOLOGY - GENERAL ORDERABLES Final Result [facility] Department [place] [address] * (ABNORMAL) eGFR (03/28/2025 1:48 PM CDT) [facility] eGFR 47(L) >=60 mL/min/1. 73 m2 Comment: Interpretive Data [...] interpretive data was last reviewed 2021. Blood 03/28/2025 1:48 PM CDT 03/28/2025 1:56 PM CDT us Margy Sharpe MD LAB BLOOD ORDERABLES Final Result [facility] [place] [address] * (ABNORMAL) Comprehensive metabolic panel (03/28/2025 1:48 PM CDT) Pathologist [facility] Sodium 142 135 - 145 mmol/L Potassium, pl 3.9 3.3 - 4.9 mmol/L [facility] Chloride 107 97 - 110 mmol/L [facility] CO2 22 22 - 32 mmol/L [facility] Anion gap 13 2 - 15 mmol/L [facility] BUN 20 6 - 25 mg/dL [facility] Creatinine 1.19(H) 0.60 - 1.10 mg/dL [facility] Glucose 102 70 - 199 mg/dL [facility] Comment: Interpretive Data Fasting glucose >/= [...] interpretive data was last revised 2022. Calcium 9.2 8.5 - 10.3 mg/dL [facility] Bilirubin, total 1.0 0.1 - 1.2 mg/dL [facility] Protein, pl 7.8 6.5 - 8.5 g/dL [facility] Albumin 4.3 3.5 - 5.0 g/dL [facility] Alk phos 115 40 - 130 Units/L [facility] ALT 14 7 - 45 Units/L [facility] AST 31 10 - 45 Units/L [facility] Blood 03/28/2025 1:48 PM CDT 03/28/2025 1:56 PM CDT us Margy Sharpe MD LAB BLOOD ORDERABLES Final Result [facility] [place] [address] * US RUQ (03/28/2025 1:08 PM CDT) Anatomical Region Laterality Modality Abdomen N/A Ultrasound 03/28/2025 5:12 PM CDT Impressions 03/28/2025 5:17 PM CDT Gallbladder wall thickening, intrahepatic and extrahepatic biliary ductal dilation, and biliary sludge without definitive sonographic or intra-examination clinical signs of cholecystitis. Dictated by: Nava Lowery M.D. The radiology attending physician has personally reviewed this study, and had reviewed and/or edited this written report and agrees with it. Electronically signed by: Janae Delgado MD Narrative 03/28/2025 5:17 PM CDT EXAMINATION: LIMITED ABDOMINAL SONOGRAM HISTORY: 71-year-old female, concern for ongoing diarrhea and cholecystitis. COMPARISON: Comparison is made to CT Body dated 03/27/2025. FINDINGS: Pancreas: The pancreas is partially obscured secondary to gas. Liver: The liver is normal in size. The echotexture is normal. The echogenicity is normal. There is no surface nodularity. No focal solid lesions are visualized. Gallbladder: The gallbladder is normal in size. There is sludge but no gallstones within the gallbladder. There is gallbladder wall thickening up to 2 mm. Negative sonographic Henriquez's sign. Bile Duct: There is intrahepatic bile duct dilatation, with intrahepatic bile ducts measuring 6 mm. The diameter of the common duct is 6 mm in the proximal segment and 11 mm in the mid segment. The distal segment was not visible. Right Kidney: The right kidney is not visible on sonogram; it is considerably atrophic on comparison CT Body. Pancreas: The visualized portions of the pancreas demonstrate no focal lesions. Procedure Note Janae Delgado MD - 03/28/2025 EXAMINATION: LIMITED ABDOMINAL SONOGRAM HISTORY: 71-year-old female, concern for ongoing diarrhea and cholecystitis. COMPARISON: Comparison is made to CT Body dated 03/27/2025. FINDINGS: Pancreas: The pancreas is partially obscured secondary to gas. Liver: The liver is normal in size. The echotexture is normal. The echogenicity is normal. There is no surface nodularity. No focal solid lesions are visualized. Gallbladder: The gallbladder is normal in size. There is sludge but no gallstones within the gallbladder. There is gallbladder wall thickening up to 2 mm. Negative sonographic Henriquez's sign. Bile Duct: There is intrahepatic bile duct dilatation, with intrahepatic bile ducts measuring 6 mm. The diameter of the common duct is 6 mm in the proximal segment and 11 mm in the mid segment. The distal segment was not visible. Right Kidney: The right kidney is not visible on sonogram; it is considerably atrophic on comparison CT Body. Pancreas: The visualized portions of the pancreas demonstrate no focal lesions. IMPRESSION: Gallbladder wall thickening, intrahepatic and extrahepatic biliary ductal dilation, and biliary sludge without definitive sonographic or intra-examination clinical signs of cholecystitis. Dictated by: Nava Lowery M.D. The radiology attending physician has personally reviewed this study, and had reviewed and/or edited this written report and agrees with it. Electronically signed by: Janae Delgado MD us Lc Noguera MD IM US PROCEDURES F inal Result * CT Body Outside Consult (03/28/2025 12:15 PM CDT) Anatomical Region Laterality Modality Body N/A Computed Tomogra phy 03/28/2025 3:24 PM CDT Impressions 03/28/2025 3:35 PM CDT 1. Mildly distended gallbladder with mild gallbladder wall thickening. This may represent cholecystitis and can be further evaluated with ultrasound. Recommend correlating this finding with the patient's symptoms. 2. Mild thickening and stranding of the distal sigmoid colon which may represent mild colitis. Additional findings were communicated to Radha Noguera by Dr. Delgado at 03/28/2025 at 3:32 PM The findings, conclusions and recommendations within this report do not replace the initial findings, conclusions and recommendations made at the facility where the study was performed based upon the imaging and clinical condition at that time. Comparison with the prior report and clinical history is necessary. The provided images may or may not represent the [place] source data set and thus may contain changes that may lower the accuracy of this second-opinion interpretation. Dictated by: Lino Browne MD The radiology attending physician has personally reviewed this study, and had reviewed and/or edited this written report and agrees with it. Electronically signed by: MD Ken Stoner 03/28/2025 3:35 PM CDT EXAMINATION: RADIOLOGY CONSULTATION ON OUTSIDE IMAGING STUDY STUDY INITIALLY PERFORMED: [facility], 03/27/2025 TYPE OF STUDY: Multiple CT images of the abdomen and pelvis without intravenous contrast are provided at the time of this interpretation. CONTRAST ROUTE: No contrast was administered. The protocol was adequate to address the clinical question. The outside final report was not available at the time of this second opinion interpretation. TYPE OF CONSULTATION: Consult on outside imaging study with images submitted through Outside Image Sharing [facility] DATE OF CONSULTATION: 03/28/2025 HISTORY: 79-year-old female presenting for cholecystitis. COMPARISON: 12/29/2020 FINDINGS: There is mild bibasilar atelectasis and scarring in the partially imaged lung bases. The partially imaged heart is enlarged. There is a tiny right Bochdalek hernia. No suspicious hepatic lesions on noncontrast exam. The gallbladder is mildly distended and thick-walled. No intrahepatic biliary ductal dilatation. There is mild distention of the common bile duct. Normal noncontrast appearance of the pancreas and spleen. Normal adrenal glands. The right kidney is atrophic with tiny calcifications. There is a cyst in the left kidney. The bladder is distended. The uterus is present. No suspicious adnexal lesions on noncontrast exam. The caliber of the small bowel and colon is within normal limits. No bowel obstruction, pneumoperitoneum, or free fluid within the pelvis. Mild thickening and stranding of the distal sigmoid colon which may represent mild colitis. The caliber of the abdominal aorta is within normal limits. There is moderate calcification of the abdominal aorta and its branches. No enlarged lymph nodes in the abdomen or pelvis. There is a small fat-containing periumbilical hernia. No suspicious osseous lesions. Multilevel degenerative changes within the thoracolumbar spine. Procedure Note Janae Delgado MD - 03/28/2025 EXAMINATION: RADIOLOGY CONSULTATION ON OUTSIDE IMAGING STUDY STUDY INITIALLY PERFORMED: [facility], 03/27/2025 TYPE OF STUDY: Multiple CT images of the abdomen and pelvis without intravenous contrast are provided at the time of this interpretation. CONTRAST ROUTE: No contrast was administered. The protocol was adequate to address the clinical question. The outside final report was not available at the time of this second opinion interpretation. TYPE OF CONSULTATION: Consult on outside imaging study with images submitted through [employer]aring [employer] DATE OF CONSULTATION: 03/28/2025 HISTORY: 79-year-old female presenting for cholecystitis. COMPARISON: 12/29/2020 FINDINGS: There is mild bibasilar atelectasis and scarring in the partially imaged lung bases. The partially imaged heart is enlarged. There is a tiny right Bochdalek hernia. No suspicious hepatic lesions on noncontrast exam. The gallbladder is mildly distended and thick-walled. No intrahepatic biliary ductal dilatation. There is mild distention of the common bile duct. Normal noncontrast appearance of the pancreas and spleen. Normal adrenal glands. The right kidney is atrophic with tiny calcifications. There is a cyst in the left kidney. The bladder is distended. The uterus is present. No suspicious adnexal lesions on noncontrast exam. The caliber of the small bowel and colon is within normal limits. No bowel obstruction, pneumoperitoneum, or free fluid within the pelvis. Mild thickening and stranding of the distal sigmoid colon which may represent mild colitis. The caliber of the abdominal aorta is within normal limits. There is moderate calcification of the abdominal aorta and its branches. No enlarged lymph nodes in the abdomen or pelvis. There is a small fat-containing periumbilical hernia. No suspicious osseous lesions. Multilevel degenerative changes within the thoracolumbar spine. IMPRESSION: 1. Mildly distended gallbladder with mild gallbladder wall thickening. This may represent cholecystitis and can be further evaluated with ultrasound. Recommend correlating this finding with the patient's symptoms. 2. Mild thickening and stranding of the distal sigmoid colon which may represent mild colitis. Additional findings were communicated to Radha Noguera by Dr. Delgado at 03/28/2025 at 3:32 PM The findings, conclusions and recommendations within this report do not replace the initial findings, conclusions and recommendations made at the facility where the study was performed based upon the imaging and clinical condition at that time. Comparison with the prior report and clinical history is necessary. The provided images may or may not represent the [place] source data set and thus may contain changes that may lower the accuracy of this second-opinion interpretation. Dictated by: Lino Browne MD The radiology attending physician has personally reviewed this study, and had reviewed and/or edited this written report and agrees with it. Electronically signed by: Janae Delgado MD us Betty Preciado MD IMG CT PROCEDURES Dominga l Result * ECG 12-LEAD (03/28/2025 10:50 AM CDT) Narrative [facility] - 03/28/2025 10:50 AM CDT Margy Sharpe MD 03/28/2025 10:51 AM ECG 12 lead Date/Time: 03/28/2025 10:50 AM Performed by: Margy Sharpe MD Authorized by: Lc Noguera MD Lc Noguera MD ECG ORDERABLES Fin al Result [facility] * (ABNORMAL) eGFR (03/28/2025 12:30 AM CDT) eGFR 42(L) >=60 mL/min/1. 73 m2 Comment: Interpretive Data [...] of Race in Diagnosing Kidney Disease, JASN 202). The CKD-EPI equation should not be used for patients with unstable renal function and has not been validated in children and those over 70. Current interpretive data was last reviewed 2021. Blood 03/28/2025 12:3 0 AM CDT 03/28/2025 12:41 AM CDT us Margy Sharpe MD LAB BLOOD ORDERABLES Final Result [facility] [place] [address] * (ABNORMAL) Differential, auto (03/28/2025 12:30 AM CDT) Pathologist [facility] Neutrophil abs 5.10 1.50 - 6.50 K/cumm Imm gran abs 0.02 0.00 - 0.10 K/cumm [facility] Lymphocyte abs 1.31 0.80 - 3.30 K/cumm [facility] Monocyte abs 0.84(H) 0.20 - 0.80 K/cumm [facility] Eosinophil abs 0.63(H) 0.00 - 0.50 K/cumm [facility] Basophil abs 0.04 0.00 - 0.10 K/cumm [facility] Neutrophil pct 64.2 % [facility] Comment: Interpretive Data Percent cell count reference ranges are not reported, since discordance with absolute values may lead to misinterpretation of CBC data. Current Interpretive Data was last revised on 2017. Imm gran pct 0.3 % [facility] Comment: Interpretive Data Percent cell count reference ranges are not reported, since discordance with absolute values may lead to misinterpretation of CBC data. Current Interpretive Data was last revised on 2017. Lymphocyte pct 16.5 % [facility] Comment: Interpretive Data Percent cell count reference ranges are not reported, since discordance with absolute values may lead to misinterpretation of CBC data. Current Interpretive Data was last revised on 2017. Monocyte pct 10.6 % [facility] Comment: Interpretive Data Percent cell count reference ranges are not reported, since discordance with absolute values may lead to misinterpretation of CBC data. Current Interpretive Data was last revised on 2017. Eosinophil pct 7.9 % [facility] Comment: Interpretive Data Percent cell count reference ranges are not reported, since discordance with absolute values may lead to misinterpretation of CBC data. Current Interpretive Data was last revised on 2017. Basophil pct 0.5 % [facility] Comment: Interpretive Data Percent cell count reference ranges are not reported, since discordance with absolute values may lead to misinterpretation of CBC data. Current Interpretive Data was last revised on 2017. Blood 03/28/2025 12:3 0 AM CDT 03/28/2025 12:41 AM CDT us Margy Sharpe MD LAB BLOOD ORDERABLES Final Result [facility] [place] [address] * (ABNORMAL) CBC with auto differential (03/28/2025 12:30 AM CDT) WBC 7.94 3.80 - 9.90 K/cumm Hgb 14.0 11.9 - 15.5 g/dL [facility] Hct 42.5 35.6 - 45.5 % [facility] Plt 190 150 - 400 K/cumm [facility] MPV 12.2 9.1 - 12.3 fL [facility] RBC 4.30 3.90 - 5.20 M/cumm [facility] MCV 98.8(H) 81.3 - 96.4 fL [facility] MCH 32.6 27.1 - 33.3 pg [facility] MCHC 32.9 32.3 - 35.7 g/dL [facility] RDW CV 15.1(H) 11.1 - 14.9 % [facility] RDW SD 54.8(H) 35.7 - 48.1 fL [facility] NRBC abs 0.00 0.00 - 0.01 K/cumm [facility] Blood Venous blood specimen / Unknown 03/28/2025 12:30 AM CDT 03/28/2025 12:41 AM CDT Margy Sharpe MD LAB BLOOD ORDERABLES Final Result [facility] [place] [address] * Lipase (03/28/2025 12:30 AM CDT) [facility] Lipase 39 10 - 99 Units/L Blood Venous blood specimen / Unknown 03/28/2025 12:30 AM CDT 03/28/2025 12:41 AM CDT Margy Sharpe MD LAB BLOOD ORDERABLES Final Result Performing Organization Address City/[facility]/ZIP Co de Phone Number [facility] [place] [address] * (ABNORMAL) Comprehensive metabolic panel (03/28/2025 12:30 AM CDT) [facility] Sodium 142 135 - 145 mmol/L Potassium, pl 4.0 3.3 - 4.9 mmol/L [facility] Chloride 109 97 - 110 mmol/L [facility] CO2 21(L) 22 - 32 mmol/L [facility] Anion gap 12 2 - 15 mmol/L [facility] BUN 22 6 - 25 mg/dL [facility] Creatinine 1.31(H) 0.60 - 1.10 mg/dL [facility] Glucose 114 70 - 199 mg/dL [facility] Comment: Interpretive Data Fasting glucose >/= [...] interpretive data was last revised 2022. Calcium 8.4(L) 8.5 - 10.3 mg/dL [facility] Bilirubin, total 0.7 0.1 - 1.2 mg/dL [facility] Protein, pl 7.1 6.5 - 8.5 g/dL [facility] Albumin 3.6 3.5 - 5.0 g/dL [facility] Alk phos 104 40 - 130 Units/L [facility] ALT 13 7 - 45 Units/L [facility] AST 29 10 - 45 Units/L [facility] Blood 03/28/2025 12:3 0 AM CDT 03/28/2025 12:41 AM CDT us Margy Sahrpe MD LAB BLOOD ORDERABLES Final Result [facility] [place] [address] * ECG 12 lead (03/09/2025 1:53 PM [...] Female Attending MD: Rosy Valverde M.D. Room: [facility] ENDOSCOPY ROOM 01 Note Status: Finalized [...] The scope was passed under direct vision.The [id number] was introduced through the anusand advanced to [...] business hours - Please call theNurse Coordinator: [phone] After hours, evening, nights, weekends and holidays- Please call the hospital ice plant operator at and ask for the GI fellow director of provider relations. - . Attending Participation: I personally performed the entire procedure. Electronically Signed By: Rosy Valverde M.D. Rosy Valverde M.D. 03/10/2021 11:51:46 AM Number of Addenda: 0 Note Initiated On: 03/10/2021 11:25 AM Rosy Valverde MD ENDOSCOPY PROCEDURES Fin al Result * Hepatitis C antibody (08/23/2018 11:13 AM LIP CUTTER) Hep C Ab Nonreactive Nonreactive [facility] Comment: Interpretive Data Positive results should be confirmed by a molecular method. If positive, a second separately collected sample should be submitted for Hepatitis C Virus (HCV) RNA Detection and Quantitation by Real-Time Reverse Pumper Gauger Apprentice-PCR (RT-PCR). Current interpretive data was last revised on 2016. Blood specimen (specimen) 08/23/2018 11:13 AM LIP CUTTER 08/23/2018 2:46 PM LIP CUTTER Narrative [facility] - 08/24/2018 10:41 AM LIP CUTTER us Lilian Garcia MD LAB MICROBIOLOGY - GENERAL OR DERABLES Edited Result - Final [facility] [place] [address] from Last 3 Months or Most Recently Relevant to Health Maintenance Insurance [facility] MEDICARE ADVANTAGE [facility]ICARE Address: [facility] [address] [place] [address] [employer] MEDICARE [facility] MEDICARE FOR[facility]LY [facility] MEDICARE Advance Directives For more information, please contact: [phone] * Full Code (Latest Code Status on [...] 9:03 AM 09/22/2022 11:59 PM Care Teams Job Cost Estimator Relationship Specialty Start Date End Date Tera Seals DO [address] [place] [address] PCP - General Family Medicine 05/05/22 Nl-Neuromuscle, [facility] - [address] [place] [address] Referring Physician Neurology 04/18/18 Ferny Kearns MD PhD [address] [place] [address] Referring Physician Cardiology 04/21/21
--- OUTSIDE RECORDS SUMMARY | 2025-04-17 13:48 | XMS_ITS | Encounter Summary ---
Author Organization [facility] Address [address] [place] [address] Phone Care Team Providers Care Leases And Land Supervisor Name Role Phone Nl-Tawny Valdes - Unavailable Unavailab Ferny Harris MD PhD Unavailable [phone] Tera Seals DO Primary Care Provider Charu Galdamez [facility] Unavailable [phone] Encounter Details Date Type Department Care Team [...] often do you attend chur ch or druze services? Never 01/28/2021 Do you belong to any clubs o r organizations such as tenriism groups, unions, fraternal or athletic groups, or [...] place to sleep or slept in a correction (including now)? No 01/28/2021 Comments No Sex and Gender Information Value Date Recorded Sex Assigned at Not on file Legal Sex Female 6:53 AM TECHNOLOGY METHODOLOGY CONSULTANT Gender Identity Not on file Sexual [...] Suspected 11/11/2022 11/11/2022 11/11/2022 1:37 PM CDT C. difficile suspected 03/28/2025 03/28/202503/29 7:26 PM CDT documented as of this encounter Care Teams Leases And Land Supervisor Relationship Specialty Start Date End Date Tera Seals DO [address] [place] [address] PCP - General Family Medicine 05/05/22 Nl-Neuromuscle, [facility] - [address] [place] [address] Referring Physician Neurology 04/18/18 Ferny Kearns MD PhD [address] [place] [address] Referring Physician Cardiology 04/21/21 Charu Galdamez, [facility] [address] [facility] ([facility] Mailstop [phone] [place] [address] [facility] Outpatient Mica Paster 01/24/23 02/20/23 documented as of this encounter
--- OUTSIDE RECORDS SUMMARY | 2025-04-17 13:49 | XMS_ITS ---
Author Organization [facility] Care Team Providers Care Bank Officer Name Role Phone Magali Gerard Unavailable Unavailable Olivia Small Unavailable Unavailable Cyn Milian Unavailable Unavailable Vinh Welch Unavailable Unavailable Allergies and adverse reactions Code CodeSystem Substance Reaction Severity StartDate Concern Status Wheat Moderate 07/07/2020 active Gluten Mild 07/07/2020 active Care Team Name Role Address Phone Organization Dates Vinh GORDON [facility] [address], [place], [address], [facility] (Office): : : [facility] 07/07/2020 - 07/18/2020 Mag[facility] [address] [place], [place] [address] [place], [place], [facility], [facility] (Office[facility] : [facility] [place] 07/07/2020 - 07/18/2020 Olivia Small [facility] [address] [place] [address], [facility] (Office): : [facility] 07/07/2020 - 07/18/2020 Cyn [facility] [place], [place], [facility], [facility] (Office): : [facility] 07/07/2020 - 07/18/2020 Immunizations Immunization Status Vaccine Details Vaccine Code CodeSystem Date Notes Hepatitis B cancelled hepatitis B vaccine, adult dosage 43 CVX created date: 07/12/2020 consent date: 07/12/2020 Influenza completed Influenza, high-dose, split virus, quadrivalent, injectable, preservative free 197 CVX created date: 07/12/2020 administer ed date: 04/27/2020 TB 2 Step Mantoux Skin Test completed tuberculin skin test; unspecified formulation lotNumber: [id number] expiry: 01/20/2022 Mfg: SANOFI PASTEUR Given 0.1 ml Right Forearm intradermally Step 1 of Multi-step with next step required 98 CVX created date: 07/08/2020 consent date: 07/08/2020 administer ed date: 07/08/2020 [facility] 07/08/2020 Zostavax (Shingles) cancelled zoster vaccine recombinant 187 CVX created date: 07/12/2020 consent date: 07/12/2020 Pneumococcal polysaccharide vaccine (PPSV23) completed pneumococcal polysaccharide vaccine, 23 valent 33 CVX created date: 07/12/2020 administer ed date: 07/02/2012 Mental Status Section Date Assessment Total Score Description 07/18/2020 BIMS 14 cognitively int act CAM 0 No delirium ind icated PHQ-9 05 mild depression 07/15/2020 BIMS 14 cognitively int act CAM 0 No delirium ind icated PHQ-9 05 mild depression Problems Problem # Description Date of onset Resolved Date Code CodeSystem Concern Status 1 RHEUMATOID ARTHRITIS WITH RHEUMATOID FACTOR OF MULTIPLE SITES WITHOUT ORGAN OR SYSTEMS INVOLVEMENT 07/15/[address] active 2 ABNORMAL POSTURE 07/09/[address] a ctive 3 MUSCLE WEAKNESS (GENERALIZED) 07/09/[address] active 4 UNSPECIFIED ABNORMALITIES OF GAIT AND MOBILITY 07/09/[address] active 5 UNSTEADINESS ON FEET 07/09/[address] active 6 CELIAC DISEASE 07/07/[address] ac tive 7 CHRONIC KIDNEY DISEASE, UNSPECIFIED 07/07/[address] active 8 CHRONIC OBSTRUCTIVE PULMONARY DISEASE, UNSPECIFIED 07/07/[address] active 9 COVID-19 07/07/[address] active 10 DIARRHEA, UNSPECIFIED 07/07/[address] active 11 ESSENTIAL (PRIMARY) HYPERTENSION 07/07/[address] active 12 GASTRO-ESOPHAGEAL REFLUX DISEASE WITHOUT ESOPHAGITIS 07/07/[address] active 13 HYPERLIPIDEMIA, UNSPECIFIED 07/07/[address] active 14 HYPOTHYROIDISM, UNSPECIFIED 07/07/[address] active 15 OBSTRUCTIVE SLEEP APNEA (ADULT) (PEDIATRIC) 07/07/[address] active 16 OTHER PULMONARY EMBOLISM WITHOUT ACUTE COR PULMONALE 07/07/[address] active 17 PERSONAL HISTORY OF OTHER VENOUS THROMBOSIS AND EMBOLISM 07/07/[address] active 18 PERSONAL HISTORY OF TRANSIENT ISCHEMIC ATTACK (TIA), AND CEREBRAL INFARCTION WITHOUT RESIDUAL DEFICITS 07/07/[address] active 19 URINARY TRACT INFECTION, SITE NOT SPECIFIED 07/07/[address] active 20 ACUTE EMBOLISM AND THROMBOSIS OF OTHER SPECIFIED VEINS 07/02/2020 07/08/[address] completed Reason for Referral No Reasons for Referral Entered Social History Social History Observation Description Start Date End Date Code Code System Current Smoking Status Tobacco smoking consumption unknown 458998477 SNOMED CT Sex Assigned At Female 1945 83431-7 [facility] Gender Identity Vital Signs Code Code System Vitals Name Values and Units Timing Information 9279-1 [facility] Respiratory Rate Value=20.0 Units=/m in 07/18/2020 8462-4 [facility] Blood Pressure-Diastolic Value=83 Un its=mmHg 07/18/2020 8480-6 [facility] Blood Pressure-Systolic Vfkkj=246 Un its=mmHg 07/18/2020 8310-5 [facility] Body Temperature Value=98.8 Units= F 07/18/2020 8867-4 [facility] Heart rate Value=80.0 Units=/min 01/2020 97579-7 [facility] O2 % BldC Oximetry Value=98.0 Units= % 07/18/2020 11384-9 [facility] Weight Bhxqw=889.3 Units=Lbs 08/2019 8302-2 [facility] Height Value=68.0 Units=Inches 07/08/2020
--- OUTSIDE RECORDS SUMMARY | 2025-04-17 13:49 | XMS_ITS | Encounter Summary ---
Author Organization [facility] Address [address] [place] [address] Phone Care Team Providers Care Automatic Spinning Lathe Setter Name Role Phone Nl-Tawny Valdes - Unavailable Unavailab Ferny Harris MD PhD Unavailable [phone] Tera Seals DO Primary Care Provider Charu Galdamez [facility] Unavailable [phone] Encounter Details Date Type Department Care Team [...] often do you attend chur ch or quaker services? Never 11/10/2022 Do you belong to any clubs o r organizations such as presybeterian groups, unions, fraternal or athletic groups, or [...] place to sleep or slept in a [place] health care facility (including now)? No 11/10/2022 Comments No Sex and Gender Information Value Date Recorded Sex Assigned at Not on file Legal Sex Female 6:53 AM QUALITY ASSURANCE COORDINATOR Gender Identity Not on file Sexual [...] Infection Onset Date Last Indicated Resolved Time C. difficile suspected 03/28/2025 03/28/202503/29 7:26 PM CDT documented as of this encounter Care Teams Automatic Spinning Lathe Setter Relationship Specialty Start Date End Date Tera Seals DO [address] [place] [address] PCP - General Family Medicine 05/05/22 Nl-Neuromuscle, [facility] - [address] [place] [address] Referring Physician Neurology 04/18/18 Ferny Kearns MD PhD [address] [place] [address] Referring Physician Cardiology 04/21/21 Charu Galdamez, WAISTBAND SETTER LOCKSTITCH [address] [facility] ([facility]) Mailstop [phone] [place] [address] SHOP Outpatient Barrel Roller 01/24/23 02/20/23 documented as of this encounter
--- OUTSIDE RECORDS SUMMARY | 2025-04-17 13:49 | XMS_ITS | Encounter Summary ---
Author Organization [facility] Address [address] [place] [address] Phone Care Team Providers Care Fisher Clam Name Role Phone Yousif Benton MD Primary Care Provider [phone] Unknown, Notinfile Primary Care Provider Unavail able Yousif Benton MD Primary Care Provider [phone] Nl-Neuromuscle, Tawny - Unavailable Unavailab Micheal George MD Primary Care Provider Yoselin Garcia RN Unavailable [phone] Ferny Kearns MD PhD Unavailable [phone] Tera Seals DO Primary Care Provider Charu Galdamez FORECLOSURE FIELD INSPECTOR Unavailable [phone] Encounter Details Date Type Department Care Team (Late st Contact Info) Description 11/13/2013 Orders Only [facility] CLINCONV Provider, MD Maame [address] [place] [address] Social History Tobacco Use Types Packs/Day Years Used Date Smoking Tobacco: Never Assessed Comments Unknown Sex and Gender Information Value Date Recorded Sex Assigned at Not on file Legal Sex Female 6:53 AM PLANNING ENGINEER Gender Identity Not on file Sexual [...] COVID: Suspected 09/22/2021 09/22/2021 09/23/2021 3:06 AM PLANNING ENGINEER COVID: Suspected 11/11/2022 11/11/2022 11/11/2022 1:37 PM CDT C. difficile suspected 03/28/2025 03/28/202503/29 7:26 PM CDT documented as of this encounter Care Teams Fisher Clam Relationship Specialty Start Date End Date Yousif Benton MD [address] [place] [address] PCP - General 12/27/16 06/07/17 Unknown, Notinfile PCP - General 06/08/17 06/17/17 Yousif Benton MD [address] [address] PCP - General 06/18/17 03/12/20 Micheal Burton MD [address] [place] [address] PCP - General Family Medicine 03/13/20 05/04/22 Tera Seals DO [address] [place] [address] PCP - General Family Medicine 05/05/22 Nl-Neuromuscle, [facility] - [address] [place] [address] Referring Physician Neurology 04/18/18 Yoselin Garcia, RN [address] [facility] [address] [place] [address] SHOP Outpatient Jail Guard 01/28/21 02/24/21 Ferny Kearns MD PhD [address] [facility] [address] [place] [address] Referring Physician Cardiology 04/21/21 Charu Galdamez, [facility] [address] [facility] ([facility]) Mailstop [phone] [place] [address] SHOP Outpatient Jail Guard 01/24/23 02/20/23 documented as of this encounter
--- OUTSIDE RECORDS SUMMARY | 2025-04-17 13:49 | XMS_ITS | Encounter Summary ---
Author Organization [facility] Address [address] [place] [address] Phone Care Team Providers Care Licensed Real Estate Broker Name Role Phone Yousif Benton MD Primary Care Provider [phone] Nl-Neuromuscle, Wusm - Unavailable Unavailab Micheal George MD Primary Care Provider Yoselin Garcia RN Unavailable [phone] Ferny Kearns MD PhD Unavailable [phone] Tera Seals DO Primary Care Provider Charu Galdamez [facility] Unavailable [phone] Encounter Details Date Type Department Care Team (Late st Contact Info) Description 04/23/2019 Telephone [facility] ([facility]) - [facility] Medicine Urology [address] [facility] Advanced Medicine 11th [place] [address] [place] [address] Nolvia Garcia Social History Tobacco Use Types Packs/Day Years Used Date Smoking Tobacco: Never Smokeless Tobacco: Never Alcohol Use Standard Drinks/Week Comments No 0 (1 standard drink = 0.6 oz pur e alcohol) Comments No Sex and Gender Information Value Date Recorded Sex Assigned at Not on file Legal Sex Female 6:53 AM SCREED OPERATOR Gender Identity Not on file Sexual Orientation Not on file documented as of this encounter Plan of Treatment Not on file documented as of this encounter Visit Diagnoses Not on filedocumented in this encounter Additional Health Concerns Infection Onset Date Last Indicated Resolved Time COVID: Suspected 09/22/2021 09/22/2021 09/23/2021 3:06 AM SCREED OPERATOR COVID: Suspected 11/11/2022 11/11/2022 11/11/2022 1:37 PM CDT C. difficile suspected 03/28/2025 03/28/202503/29 7:26 PM CDT documented as of this encounter Care Teams Licensed Real Estate Broker Relationship Specialty Start Date End Date Yousif Benton MD [address] [facility] [place] [address] PCP - General 06/18/17 03/12/20 Micheal Burton MD [address] [place] [address] PCP - General Family Medicine 03/13/20 05/04/22 Tera Seals DO [address] [place] [address] PCP - General Family Medicine 05/05/22 Nl-Neuromuscle, [facility] [address] [place] [address] Referring Physician Neurology 04/18/18 Yoselin Garcia, RN [address] [address] [facility] Outpatient Engine Dynamometer Tester 01/28/21 02/24/21 Ferny Kearns MD PhD 45[address] [facility] [address] [place] [address] Referring Physician Cardiology 04/21/21 Charu Galdamez, [facility] 45[address] [facility] ([facility]) Mailstop [phone] [place] [address] [facility] Outpatient Engine Dynamometer Tester 01/24/23 02/20/23 documented as of this encounter
--- OUTSIDE RECORDS SUMMARY | 2025-04-17 13:49 | XMS_ITS | Encounter Summary ---
Author Organization [facility] Address [address] [place] [address] Phone Care Team Providers Care Market Development Analyst Name Role Phone Nl-Keisha Wulaura - Unavailable Unavailab Ferny Harris MD PhD Unavailable [phone] Tera Seals DO Primary Care Provider Encounter Details Date Type Department Care Team (Late st Contact Info) Description 04/12/2023 Telephone [facility] Medicine Cardiology [address] [facility] Advanced Medicine 8th [place] [address] [place] [address] Ferny Kearns MD PhD [address] [facility] [address] [place], [place] [address] Social History Tobacco Use Types Packs/Day Years [...] often do you attend chur ch or mosque services? Never 01/24/2023 Do you belong to [...] place to sleep or slept in a skilled nursing (including now)? No 01/24/2023 Personal Safety Answer Date Recorded Have you ever been in or are you currently in a harmful physical or emotional relationship or is someone making you feel afraid or unsafe? Denies 01/16/2023 Comments No Sex and Gender Information Value Date Recorded Sex Assigned at Not on file Legal Sex Female 6:53 AM SHOP REPAIRER Gender Identity Not on file Sexual Orientation Not on file documented as of this encounter Plan of Treatment Not on file documented as of this encounter Visit Diagnoses Not on filedocumented in this encounter Additional Health Concerns Infection Onset Date Last Indicated Resolved Time C. difficile suspected 03/28/2025 03/28/202503/29 7:26 PM CDT documented as of this encounter Care Teams Market Development Analyst Relationship Specialty Start Date End Date Tera Seals DO [address] [place] [address] PCP - General Family Medicine 05/05/22 Nl-Neuromuscle, [facility] - [address] [place] [address] Referring Physician Neurology 04/18/18 Ferny Kearns MD PhD [address] [place] [address] Referring Physician Cardiology 04/21/21 documented as of this encounter
--- OUTSIDE RECORDS SUMMARY | 2025-04-17 13:49 | XMS_ITS | Encounter Summary ---
Author Organization [facility] Address [address] [place] [address] Phone Care Team Providers Care Glove Wrapper Name Role Phone Yousif Benton MD Primary Care Provider [phone] Unknown, Notinfile Primary Care Provider Unavail able Yousif Benton MD Primary Care Provider [phone] Nl-Neuromuscle, Tawny - Unavailable Unavailab Micheal George MD Primary Care Provider Yoselin Garcia RN Unavailable [phone] Ferny Kearns MD PhD Unavailable [phone] Tera Seals DO Primary Care Provider Charu Galdamez MANUFACTURING HELPER Unavailable [phone] Encounter Details Date Type Department Care Team (Late st Contact Info) Description 07/30/2013 Orders Only WUCEDRIC DANGELO CAR CLINCONV Provider, MD Maame [address] [place] [address] Social History Tobacco Use Types Packs/Day Years Used Date Smoking Tobacco: Never Assessed Comments Unknown Sex and Gender Information Value Date Recorded Sex Assigned at Not on file Legal Sex Female 6:53 AM NETEZZA DEVELOPER Gender Identity Not on file Sexual [...] COVID: Suspected 09/22/2021 09/22/2021 09/23/2021 3:06 AM NETEZZA DEVELOPER COVID: Suspected 11/11/2022 11/11/2022 11/11/2022 1:37 PM CDT C. difficile suspected 03/28/2025 03/28/202503/29 7:26 PM CDT documented as of this encounter Care Teams Glove Wrapper Relationship Specialty Start Date End Date Yousif Benton MD [address] [address] PCP - General 12/27/16 06/07/17 Unknown, Notinfile PCP - General 06/08/17 06/17/17 Yousif Benton MD [address] [address] PCP - General 06/18/17 03/12/20 Micheal Burton MD [address] [place] [address] PCP - General Family Medicine 03/13/20 05/04/22 Tera Seals DO [address] [place] [address] PCP - General Family Medicine 05/05/22 Nl-Neuromuscle, [facility] - [address] [place] [address] Referring Physician Neurology 04/18/18 Yoselin Garcia, RN [address] [facility] 5[address] [place] [address] SHOP Outpatient Mission Systems Engineer 01/28/21 02/24/21 Ferny Kearns MD PhD [address] [facility] [address] [place] [address] Referring Physician Cardiology 04/21/21 Charu Galdamez, [facility] 45[address] [facility] ([facility]) Mailstop [phone] [place] [address] SHOP Outpatient Mission Systems Engineer 01/24/23 02/20/23 documented as of this encounter
--- OUTSIDE RECORDS SUMMARY | 2025-04-17 13:49 | XMS_ITS | Encounter Summary ---
Author Organization [facility] Address [address] [place] [address] Phone Care Team Providers Care Stacker Straightener Name Role Phone Yousif Benton MD Primary Care Provider [phone] Nl-Neuromuscle, Wusm - Unavailable Unavailab Micheal George MD Primary Care Provider Yoselin Garcia RN Unavailable [phone] Ferny Kearns MD PhD Unavailable [phone] Tera Seals DO Primary Care Provider Charu Galdamez [facility] Unavailable [phone] Encounter Details Date Type Department Care Team [...] on file Legal Sex Female 6:53 AM SPINNING BATH PATROLLER Gender Identity Not on file Sexual Orientation Not on file documented as of this encounter Plan of Treatment Not on file documented as of this encounter Procedures Procedure Name Priority Date/Time Associated Diagnosis Comments SCAN - LABS 11/26/2019 documented in this encounter Results * SCAN - LABS (11/26/2019) us Provider Scanning Final Result documented in this encounter Visit Diagnoses Not on filedocumented in this encounter Additional Health Concerns Infection Onset Date Last Indicated Resolved Time COVID: Suspected 09/22/2021 09/22/2021 09/23/2021 3:06 AM SPINNING BATH PATROLLER COVID: Suspected 11/11/2022 11/11/2022 11/11/2022 1:37 PM CDT C. difficile suspected 03/28/2025 03/28/202503/29 7:26 PM CDT documented as of this encounter Care Teams Stacker Straightener Relationship Specialty Start Date End Date Yousif Benton MD [address] [facility] [place] [address] PCP - General 06/18/17 03/12/20 [facility] [address] [place] [address] PCP - General Family Medicine 03/13/20 05/04/22 Tera Seals DO [address] [place] [address] PCP - General Family Medicine 05/05/22 -Neuromuscle, [facility] - [address] [place] [address] Referring Physician Neurology 04/18/18 Yoselin Garcia, DELILAH [address] [address] [facility] Outpatient Audio Visual Equipment Rental Clerk 01/28/21 02/24/21 Ferny Kearns MD PhD [address] [address] Referring Physician Cardiology 04/21/21 Charu Galdamez, JODY [address] [facility] ([facility]) Mailstop [phone] [place] [address] SHOP Outpatient Audio Visual Equipment Rental Clerk 01/24/23 02/20/23 documented as of this encounter
--- OUTSIDE RECORDS SUMMARY | 2025-04-17 13:49 | XMS_ITS | Encounter Summary ---
Author Organization [facility] Address [address] [place] [address] Phone Care Team Providers Care Chocolate Temperer Name Role Phone Yousif Benton MD Primary Care Provider [phone] Unknown, Notinfile Primary Care Provider Unavail able Yousif Benton MD Primary Care Provider [phone] Nl-Neuromuscle, Tawny - Unavailable Unavailab Micheal George MD Primary Care Provider Yoselin Garcia RN Unavailable [phone] Ferny Kearns MD PhD Unavailable [phone] Tera Seals DO Primary Care Provider Charu Galdamez REVENUE MANAGER Unavailable [phone] Encounter Details Date Type Department Care Team (Late st Contact Info) Description 08/14/2013 Orders Only WUCEDRIC DANGELO CAR CLINCONV Provider, MD Maame [address] [place] [address] Social History Tobacco Use Types Packs/Day Years Used Date Smoking Tobacco: Never Assessed Comments Unknown Sex and Gender Information Value Date Recorded Sex Assigned at Not on file Legal Sex Female 6:53 AM SEAWEED HARVESTER Gender Identity Not on file Sexual Orientation [...] COVID: Suspected 09/22/2021 09/22/2021 09/23/2021 3:06 AM SEAWEED HARVESTER COVID: Suspected 11/11/2022 11/11/2022 11/11/2022 1:37 PM CDT C. difficile suspected 03/28/2025 03/28/202503/29 7:26 PM CDT documented as of this encounter Care Teams Chocolate Temperer Relationship Specialty Start Date End Date Yousif Benton MD [address] [address] PCP - General 12/27/16 06/07/17 Unknown, Notinfile PCP - General 06/08/17 06/17/17 Yousif Benton MD [address] [address] PCP - General 06/18/17 03/12/20 Micheal Burton MD [address] [place] [address] PCP - General Family Medicine 03/13/20 05/04/22 Tera Seals DO [address] [place] [address] PCP - General Family Medicine 05/05/22 Nl-Neuromuscle, [facility] - [address] [place] [address] Referring Physician Neurology 04/18/18 Yoselin Garcia, RN [address] [facility] [address] [place] [address] SHOP Outpatient Cement Production Plant Operator 01/28/21 02/24/21 Ferny Kearns MD PhD [address] [facility] [address] [place] [address] Referring Physician Cardiology 04/21/21 Charu Galdamez, [facility] 45[address] [facility] ([facility] Mailstop [phone] [place] [address] SHOP Outpatient Cement Production Plant Operator 01/24/23 02/20/23 documented as of this encounter
--- OUTSIDE RECORDS SUMMARY | 2025-04-17 13:49 | XMS_ITS | Encounter Summary ---
Author Organization [facility] Address [address] [place] [address] Phone Care Team Providers Care Senior Windows Engineer Name Role Phone Yousif Benton MD Primary Care Provider Nl-Neuromuscle, Wusm - Unavailable Unavailab Micheal George MD Primary Care Provider Yoselin Garcia RN Unavailable [phone] Ferny Kearns MD PhD Unavailable [phone] Tera Seals DO Primary Care Provider Charu Galdamez [facility] Unavailable [phone] Encounter Details Date Type Department Care Team [...] on file Legal Sex Female 6:53 AM CONTENT DEVELOPMENT MANAGER Gender Identity Not on file Sexual Orientation Not on file documented as of this encounter Plan of Treatment Not on file documented as of this encounter Procedures Procedure Name Priority Date/Time Associated Diagnosis Comments SCAN - LABS 02/20/2020 documented in this encounter Results * SCAN - LABS (02/20/2020) us Provider Scanning Final Result documented in this encounter Visit Diagnoses Not on filedocumented in this encounter Additional Health Concerns Infection Onset Date Last Indicated Resolved Time COVID: Suspected 09/22/2021 09/22/2021 09/23/2021 3:06 AM CONTENT DEVELOPMENT MANAGER COVID: Suspected 11/11/2022 11/11/2022 11/11/2022 1:37 PM CDT C. difficile suspected 03/28/2025 03/28/202503/29 7:26 PM CDT documented as of this encounter Care Teams Senior Windows Engineer Relationship Specialty Start Date End Date Yousif Benton MD [address] [facility] [place] [address] PCP - General 06/18/17 03/12/20 [facility] [address] [place] [address] PCP - General Family Medicine 03/13/20 05/04/22 Tera Seals DO [address] [place] [address] PCP - General Family Medicine 05/05/22 -Neuromuscle, [facility] - [address] [place] [address] Referring Physician Neurology 04/18/18 Yoselin Garcia, DELILAH [address] [address] [facility] Outpatient Digital Ad Trafficker 01/28/21 02/24/21 Ferny Kearns MD PhD [address] [address] Referring Physician Cardiology 04/21/21 Charu Galdamez, JODY 45[address] [facility] ([facility] Mailstop [phone] [place] [address] SHOP Outpatient Digital Ad Trafficker 01/24/23 02/20/23 documented as of this encounter
--- OUTSIDE RECORDS SUMMARY | 2025-04-17 13:49 | XMS_ITS | Clinical Summary ---
Author Organization [facility] Address [address] [facility] [place] [address] Care Team Providers Care Rhit Name Role Phone Unavailable Primary Care Provider Unavailabl e Source Comments [facility],non-owned Affiliates and Associated Physician Practices is amultiple site organization consisting of ambulatory clinics and hospital sitesin [place], [place], [place] and [place]. This disclosure is being madepursuant to the Care Everywhere program and may not contain all information available regarding this patient. Last updated 18.[facility] [place] Allergies Active Allergy Reactions Criticality Noted Date [...] 2 times daily 04/21/2021 Active Glucosamine-Cho ndroitin 6729-9948 MG/30ML Take 1,500 mg by mouth 2 [...] patient's age to complete this topic Insurance [facility] MANAGED MEDICARE ADV [facility] MANAGED MEDICARE ADV AETNA MEDICARE ADV AETNA MEDICARE ADV
--- OUTSIDE RECORDS SUMMARY | 2025-04-17 13:49 | XMS_ITS | Encounter Summary ---
Author Organization [facility] Address [address] [place] [address] Care Team Providers Care Sales Marketing Manager Name Role Phone Nl-Neuromuscle, Wusm - Unavailable Unavailab Micheal George MD Primary Care Provider Yoselin Garcia RN Unavailable Ferny eKarns MD PhD Unavailable Tera Seals DO Primary Care Provider Charu Galdamez [facility] Unavailable [phone] Encounter Details Date Type Department Care Team (Late st Contact Info) Description 09/09/2020 Telephone [facility] [address] [place] [address] Jessica Ramos, RT Social History Tobacco Use Types Packs/Day Years Used Date Smoking Tobacco: Never Smokeless Tobacco: Never Alcohol Use Standard Drinks/Week Comments No 0 (1 standard drink = 0.6 oz pur e alcohol) Comments No Sex and Gender Information Value Date Recorded Sex Assigned at Not on file Legal Sex Female 6:53 AM REAMING MACHINE OPERATOR FOR PLASTIC Gender Identity Not on file Sexual Orientation Not on file documented as of this encounter Plan of Treatment Not on file documented as of this encounter Visit Diagnoses Not on filedocumented in this encounter Additional Health Concerns Infection Onset Date Last Indicated Resolved Time COVID: Suspected 09/22/2021 09/22/2021 09/23/2021 3:06 AM REAMING MACHINE OPERATOR FOR PLASTIC COVID: Suspected 11/11/2022 11/11/2022 11/11/2022 1:37 PM CDT C. difficile suspected 03/28/2025 03/28/202503/29 7:26 PM CDT documented as of this encounter Care Teams Sales Marketing Manager Relationship Specialty Start Date End Date Micheal Burton MD [address] [place] [address] PCP - General Family Medicine 03/13/20 05/04/22 Tera Seals DO [address] [place] [address] PCP - General Family Medicine 05/05/22 Nl-Neuromuscle, [facility] - [address] [place] [address] Referring Physician Neurology 04/18/18 Yoselin Garcia, RN [address] [place] [address] [employer] Outpatient Comparative Sociology Professor 01/28/21 02/24/21 Ferny Kearns MD PhD [address] [address] Referring Physician Cardiology 04/21/21 Charu Galdamez, MANAGER NEONATAL 45[address] [facility] ([facility] [phone] [place] [address] SHOP Outpatient Comparative Sociology Professor 01/24/23 02/20/23 documented as of this encounter
--- OUTSIDE RECORDS SUMMARY | 2025-04-17 13:51 | XMS_ITS | Clinical Summary ---
Author Organization [facility] Address [address] [place] [address] Phone Care Team Providers Care Pipe Stress Engineer Name Role Phone Unavailable Primary Care Provider Unavailabl e Social History Tobacco Use Types Packs/Day Years Used Date Smoking Tobacco: Never Assessed Comments Unknown Sex and Gender Information Value Date Recorded Sex Assigned at Not on file Legal Sex Female 3:14 PM AVICULTURIST Gender Identity Not on file Sexual Orientation Not on file Plan of Treatment Not on file
--- OUTSIDE RECORDS SUMMARY | 2025-04-17 13:51 | XMS_ITS | Encounter Summary ---
Author Organization [facility] Address [address] [place] [address] Phone Care Team Providers Care Support Manager Name Role Phone Yousif Benton MD Primary Care Provider [phone] Unknown, Notinfile Primary Care Provider Unavail able Yousif Benton MD Primary Care Provider [phone] Nl-Neuromuscle, Tawny - Unavailable Unavailab Micheal George MD Primary Care Provider Yoselin Garcia RN Unavailable [phone] Ferny Kearns MD PhD Unavailable [phone] Tera Seals DO Primary Care Provider Charu Galdamez WATER TAXI DRIVER Unavailable [phone] Encounter Details Date Type Department Care Team (Late st Contact Info) Description 07/31/2014 Orders Only WUCEDRIC DANGELO CAR CLINCONV Provider, MD Maame [address] [place] [address] Social History Tobacco Use Types Packs/Day Years Used Date Smoking Tobacco: Never Assessed Comments Unknown Sex and Gender Information Value Date Recorded Sex Assigned at Not on file Legal Sex Female 6:53 AM BUS AND TROLLEY INSPECTING DISPATCHER Gender Identity Not on file Sexual Orientation [...] COVID: Suspected 09/22/2021 09/22/2021 09/23/2021 3:06 AM BUS AND TROLLEY INSPECTING DISPATCHER COVID: Suspected 11/11/2022 11/11/2022 11/11/2022 1:37 PM CDT C. difficile suspected 03/28/2025 03/28/202503/29 7:26 PM CDT documented as of this encounter Care Teams Support Manager Relationship Specialty Start Date End Date Yousif Benton MD [address] [address] PCP - General 12/27/16 06/07/17 Unknown, Notinfile PCP - General 06/08/17 06/17/17 Yousif Benton MD [address] [address] PCP - General 06/18/17 03/12/20 Micheal Burton MD [address] [place] [address] PCP - General Family Medicine 03/13/20 05/04/22 Tera Seals DO [address] [place] [address] PCP - General Family Medicine 05/05/22 Nl-Neuromuscle, [facility] - [address] [place] [address] Referring Physician Neurology 04/18/18 Yoselin Garcia, RN 45[address] [facility] [address] [place] [address] SHOP Outpatient Hearing Instrument Specialist 01/28/21 02/24/21 Ferny Kearns MD PhD [address] [facility] [address] [place] [address] Referring Physician Cardiology 04/21/21 Charu Galdamez, [facility] [address] [facility] ([facility]) Mailstop [phone] [place] [address] SHOP Outpatient Hearing Instrument Specialist 01/24/23 02/20/23 documented as of this encounter
--- OUTSIDE RECORDS SUMMARY | 2025-04-17 13:51 | XMS_ITS | Encounter Summary ---
Author Organization [facility] Address [address] [place] [address] Phone Care Team Providers Care Road Driver Name Role Phone Yousif Benton MD Primary Care Provider Unknown, Notinfile Primary Care Provider Unavail able Yousif Benton MD Primary Care Provider [phone] Nl-Neuromuscle, [place] - Unavailable Unavailab Micheal George MD Primary Care Provider Yoselin Garcia RN Unavailable [phone] Ferny Kearns MD PhD Unavailable [phone] Tera Seals DO Primary Care Provider Charu Galdamez TIPPLE TENDER Unavailable [phone] Encounter Details Date Type Department Care Team (Late st Contact Info) Description 03/26/2014 Orders Only [facility] CAR CLINCONV Provider, MD Maame [address] [place] [address] Social History Tobacco Use Types Packs/Day Years Used Date Smoking Tobacco: Never Assessed Comments Unknown Sex and Gender Information Value Date Recorded Sex Assigned at Not on file Legal Sex Female 6:53 AM CHILDREN'S PROGRAM COORDINATOR Gender Identity Not on file Sexual [...] COVID: Suspected 09/22/2021 09/22/2021 09/23/2021 3:06 AM CHILDREN'S PROGRAM COORDINATOR COVID: Suspected 11/11/2022 11/11/2022 11/11/2022 1:37 PM CDT C. difficile suspected 03/28/2025 03/28/202503/29 7:26 PM CDT documented as of this encounter Care Teams Road Driver Relationship Specialty Start Date End Date Yousif Benton MD [address] [place] [address] PCP - General 12/27/16 06/07/17 Unknown, Notinfile PCP - General 06/08/17 06/17/17 Yousif Benton MD [address] [place] [address] PCP - General 06/18/17 03/12/20 Micheal Burton MD [address] [place] [address] PCP - General Family Medicine 03/13/20 05/04/22 Tera Seals DO [address] [place] [address] PCP - General Family Medicine 05/05/22 Nl-Neuromuscle, [facility] - [address] [place] [address] Referring Physician Neurology 04/18/18 Yoselin Garcia, RN [address] [facility] [address] [place] [address] SHOP Outpatient Welding Machine Operator 01/28/21 02/24/21 Ferny Kearns MD PhD [address] [facility] [address] [place] [address] Referring Physician Cardiology 04/21/21 Charu Galdamez, [facility] 45[address] [facility] ([facility]) Mailstop [phone] [place] [address] SHOP Outpatient Welding Machine Operator 01/24/23 02/20/23 documented as of this encounter
--- OUTSIDE RECORDS SUMMARY | 2025-04-17 13:51 | XMS_ITS | Encounter Summary ---
Author Organization [facility] Address [address] [place] [address] Phone Care Team Providers Care Head Inspector And Center Marker Name Role Phone Yousif Benton MD Primary Care Provider [phone] Unknown, Notinfile Primary Care Provider Unavail able Yousif Benton MD Primary Care Provider [phone] Nl-Neuromuscle, [place]wny - Unavailable Unavailab Micheal George MD Primary Care Provider Yoselin Garcia RN Unavailable [phone] Ferny Kearns MD PhD Unavailable [phone] Tera Seals DO Primary Care Provider Charu Galdamez PHYSICIAN OFFICE REP Unavailable [phone] Encounter Details Date Type Department Care Team (Late st Contact Info) Description 08/10/2014 Orders Only [facility] CAR CLINCONV Provider, MD Maame [address] [place] [address] Social History Tobacco Use Types Packs/Day Years Used Date Smoking Tobacco: Never Assessed Comments Unknown Sex and Gender Information Value Date Recorded Sex Assigned at Not on file Legal Sex Female 6:53 AM TRANSPORTATION SALES CONSULTANT Gender Identity Not on file Sexual [...] COVID: Suspected 09/22/2021 09/22/2021 09/23/2021 3:06 AM TRANSPORTATION SALES CONSULTANT COVID: Suspected 11/11/2022 11/11/2022 11/11/2022 1:37 PM CDT C. difficile suspected 03/28/2025 03/28/202503/29 7:26 PM CDT documented as of this encounter Care Teams Head Inspector And Center Marker Relationship Specialty Start Date End Date Yousif Benton MD [address] [place] [address] PCP - General 12/27/16 06/07/17 Unknown, Notinfile PCP - General 06/08/17 06/17/17 Yousif Benton MD [address] [place] [address] PCP - General 06/18/17 03/12/20 Micheal Burton MD [address] [place] [address] PCP - General Family Medicine 03/13/20 05/04/22 Tera Seals DO [address] [place] [address] PCP - General Family Medicine 05/05/22 Nl-Neuromuscle, [facility] - [address] [place] [address] Referring Physician Neurology 04/18/18 Yoselin Garcia, RN 45[address] [facility] [address] [place] [address] SHOP Outpatient Central Supply Assistant 01/28/21 02/24/21 Ferny Kearns MD PhD [address] [facility] [address] [place] [address] Referring Physician Cardiology 04/21/21 Charu Galdamez, [facility] 45[address] [facility] ([facility] Mailstop [phone] [place] [address] SHOP Outpatient Central Supply Assistant 01/24/23 02/20/23 documented as of this encounter
[2025-04-17 13:52] LABS: Add Urine Microscopic? YES; Appearance Urine Clear (Clear); Glucose Urine UA 3+ (Negative); Leukocyte Esterase Ur 2+ LEU/UL (Negative); Nitrate Urine Negative (Negative); Specific Grav Ur 1.015 (1.010-1.020)
--- OUTSIDE RECORDS SUMMARY | 2025-04-17 13:52 | XMS_ITS | Encounter Summary ---
Author Organization [facility] Address [address] [place] [address] Phone Care Team Providers Care Joint Special Operations Name Role Phone Yousif Benton MD Primary Care Provider [phone] Unknown, Notinfile Primary Care Provider Unavail able Yousif Benton MD Primary Care Provider [phone] Nl-Neuromuscle, [place] - Unavailable Unavailab Micheal George MD Primary Care Provider Yoselin Garcia RN Unavailable [phone] Ferny Kearns MD PhD Unavailable [phone] Tera Seals DO Primary Care Provider Charu Galdamez OYSTER SHUCKER Unavailable [phone] Encounter Details Date Type Department Care Team (Late st Contact Info) Description 02/29/2016 Orders Only [facility] CAR CLINCONV Provider, MD Maame [address] [place] [address] Social History Tobacco Use Types Packs/Day Years Used Date Smoking Tobacco: Never Comments Unknown Sex and Gender Information Value Date Recorded Sex Assigned at Not on file Legal Sex Female 6:53 AM CRANE HELPER Gender Identity Not on file Sexual Orientation [...] COVID: Suspected 09/22/2021 09/22/2021 09/23/2021 3:06 AM CRANE HELPER COVID: Suspected 11/11/2022 11/11/2022 11/11/2022 1:37 PM CDT C. difficile suspected 03/28/2025 03/28/202503/29 7:26 PM CDT documented as of this encounter Care Teams Joint Special Operations Relationship Specialty Start Date End Date Yousif Benton MD [address] [place] [address] PCP - General 12/27/16 06/07/17 Unknown, Notinfile PCP - General 06/08/17 06/17/17 Yousif Benton MD [address] [place] [address] PCP - General 06/18/17 03/12/20 Micheal Burton MD [address] [place] [address] PCP - General Family Medicine 03/13/20 05/04/22 Tera Seals DO [address] [place] [address] PCP - General Family Medicine 05/05/22 Nl-Neuromuscle, [facility] - [address] [place] [address] Referring Physician Neurology 04/18/18 Yoselin Garcia, RN 4590 [facility] [address] [place] [address] SHOP Outpatient Lamination Inspector 01/28/21 02/24/21 Ferny Kearns MD PhD 45[address] [facility] [address] [place] [address] Referring Physician Cardiology 04/21/21 Charu Galdamez, OYSTER SHUCKER 45[address] [facility] ([facility]) Mailstop [phone] [place] [address] SHOP Outpatient Lamination Inspector 01/24/23 02/20/23 documented as of this encounter
--- OUTSIDE RECORDS SUMMARY | 2025-04-17 13:52 | XMS_ITS | Encounter Summary ---
Author Organization [facility] Address [address] [place] [address] Phone Care Team Providers Care Children'S Literature Professor Name Role Phone Yousif Benton MD Primary Care Provider [phone] Unknown, Notinfile Primary Care Provider Unavail able Yousif Benton MD Primary Care Provider [phone] -Neuromuscle, [facility] - Unavailable Unavailab Micheal George MD Primary Care Provider Yoselin Garcia RN Unavailable [phone] Ferny Kearns MD PhD Unavailable [phone] Tera Seals DO Primary Care Provider Charu Galdamez HAMPER MAKER Unavailable [phone] Encounter Details Date Type Department Care Team (Late st Contact Info) Description 10/25/2015 Orders Only [facility] ADULT CLINCONV Seda Dueñas MD [address] [facility] [address] [place] [address] Social History Tobacco Use Types Packs/Day Years Used Date Smoking Tobacco: Never Comments Unknown Sex and Gender Information Value Date Recorded Sex Assigned at Not on file Legal Sex Female 6:53 AM SPEECH THERAPIST EARLY INTERVENTION Gender Identity Not on file Sexual Orientation [...] COVID: Suspected 09/22/2021 09/22/2021 09/23/2021 3:06 AM SPEECH THERAPIST EARLY INTERVENTION COVID: Suspected 11/11/2022 11/11/2022 11/11/2022 1:37 PM CDT C. difficile suspected 03/28/2025 03/28/202503/29 7:26 PM CDT documented as of this encounter Care Teams Children'S Literature Professor Relationship Specialty Start Date End Date Yousif Benton MD [address] [place] [address] PCP - General 12/27/16 06/07/17 Unknown, Notinfile PCP - General 06/08/17 06/17/17 Yousif Benton MD [address] [place] [address] PCP - General 06/18/17 03/12/20 Micheal Burton MD [address] [place] [address] PCP - General Family Medicine 03/13/20 05/04/22 Tera Seals DO [address] [place] [address] PCP - General Family Medicine 05/05/22 Nl-Neuromuscle, [facility] - [address] [place] [address] Referring Physician Neurology 04/18/18 Yoselin Garcia, RN 45[address] [facility] [address] [place] [address] SHOP Outpatient Commodity Industry Analyst 01/28/21 02/24/21 Ferny Kearns MD PhD [address] [facility] [address] [place] [address] Referring Physician Cardiology 04/21/21 Charu Galdamez, [facility] 4590 [facility] ([facility]) Mailstop [phone] [place] [address] SHOP Outpatient Commodity Industry Analyst 01/24/23 02/20/23 documented as of this encounter
--- OUTSIDE RECORDS SUMMARY | 2025-04-17 13:52 | XMS_ITS | Encounter Summary ---
Author Organization [facility] Address [address] [place] [address] Phone Care Team Providers Care Resistance Welder Name Role Phone Yousif Benton MD Primary Care Provider [phone] Unknown, Notinfile Primary Care Provider Unavail able Yousif Benton MD Primary Care Provider [phone] Nl-Neuromuscle, [place] - Unavailable Unavailab Micheal George MD Primary Care Provider Yoselin Garcia RN Unavailable [phone] Ferny Kearns MD PhD Unavailable [phone] Tera Seals DO Primary Care Provider Charu Galdamez STAFF NURSE MIDWIFE Unavailable [phone] Encounter Details Date Type Department Care Team (Late st Contact Info) Description 01/07/2016 Orders Only [facility] CAR CLINCONV Provider, MD Maame [address] [place] [address] Social History Tobacco Use Types Packs/Day Years Used Date Smoking Tobacco: Never Comments Unknown Sex and Gender Information Value Date Recorded Sex Assigned at Not on file Legal Sex Female 6:53 AM EEG TECHNOLOGIST Gender Identity Not on file Sexual Orientation [...] COVID: Suspected 09/22/2021 09/22/2021 09/23/2021 3:06 AM EEG TECHNOLOGIST COVID: Suspected 11/11/2022 11/11/2022 11/11/2022 1:37 PM CDT C. difficile suspected 03/28/2025 03/28/202503/29 7:26 PM CDT documented as of this encounter Care Teams Resistance Welder Relationship Specialty Start Date End Date Yousif Benton MD [address] [place] [address] PCP - General 12/27/16 06/07/17 Unknown, Notinfile PCP - General 06/08/17 06/17/17 Yosuif Benton MD [address] [place] [address] PCP - General 06/18/17 03/12/20 Micheal Burton MD [address] [place] [address] PCP - General Family Medicine 03/13/20 05/04/22 Tera Seals DO [address] [place] [address] PCP - General Family Medicine 05/05/22 Nl-Neuromuscle, [facility] - [address] [place] [address] Referring Physician Neurology 04/18/18 Yoselin Garcia, RN [address] [facility] [address] [place] [address] SHOP Outpatient Mime Artist 01/28/21 02/24/21 Ferny Kearns MD PhD [address] [facility] [address] [place] [address] Referring Physician Cardiology 04/21/21 Charu Galdamez, STAFF NURSE MIDWIFE 4590 [facility] ([facility] Mailstop [phone] [place] [address] SHOP Outpatient Mime Artist 01/24/23 02/20/23 documented as of this encounter
--- OUTSIDE RECORDS SUMMARY | 2025-04-17 13:52 | XMS_ITS | Encounter Summary ---
Author Organization [facility] Address [address] [place] [address] Phone Care Team Providers Care Cage Maker Machine Name Role Phone Yousif Benton MD Primary Care Provider [phone] Nl-Neuromuscle, [place] - Unavailable Unavailab Micheal George MD Primary Care Provider Yoselin Garcia RN Unavailable [phone] Ferny Kearns MD PhD Unavailable [phone] Tera Seals DO Primary Care Provider Charu Galdamez [facility] Unavailable [phone] Encounter Details Date Type Department Care Team (Latest Contact Info) Description 11/01/2017 Orders Only [place] STROKE Scanning, Provider Social History Tobacco Use Types Packs/Day Years Used Date Smoking Tobacco: Never Comments Unknown Sex and Gender Information Value Date Recorded Sex Assigned at Not on file Legal Sex Female 6:53 AM TIPPLE BOSS Gender Identity Not on file Sexual Orientation [...] COVID: Suspected 09/22/2021 09/22/2021 09/23/2021 3:06 AM TIPPLE BOSS COVID: Suspected 11/11/2022 11/11/2022 11/11/2022 1:37 PM CDT C. difficile suspected 03/28/2025 03/28/202503/29 7:26 PM CDT documented as of this encounter Care Teams Cage Maker Machine Relationship Specialty Start Date End Date Yousif Benton MD [address] [facility] [place] [address] PCP - General 06/18/17 03/12/20 Micheal Burton MD [address] [place] [address] PCP - General Family Medicine 03/13/20 05/04/22 Tera Seals DO [address] [place] [address] PCP - General Family Medicine 05/05/22 Nl-Neuromuscle, [facility] [address] [place] [address] Referring Physician Neurology 04/18/18 Yoselin Garcia, RN [address] [address] SHOP Outpatient Mail Processing Equipment Mechanic 01/28/21 02/24/21 Ferny Kearns MD PhD [address] [address] Referring Physician Cardiology 04/21/21 Charu Galdamez, PLATE WORKER HELPER 4590 [facility] ([facility] Mailstop [phone] [place] [address] SHOP Outpatient Mail Processing Equipment Mechanic 01/24/23 02/20/23 documented as of this encounter
== END 2025-04-17 13:27 | disposition home or self-care (01) ==
LOC: CHSLAB 13:29
PROVIDERS: PCP Family Medicine; Visit Provider Nurse Practitioner Family
DX: R39.9 Unspecified symptoms and signs involving the genitourinary system (principal)
CPT/HCPCS: 81001; 87086; 87088; 87186

== ENCOUNTER 2025-07-15 13:22 | Outpatient (CLI) | payer MEDICARE, SELFPAY ==
[2025-07-15 13:34] LABS: Hematocrit 46.7 % (35.0-42.0); Hemoglobin 15.0 g/dL (11.7-13.8); Mean Corpuscular HGB Conc 32.1 g/dL (32-36); Mean Corpuscular Hemoglobin 32.2 pg (27.0-31.0); Mean Corpuscular Volume 100.2 fL (78.0-102.0); Platelet Count Result 228 K/mm3 (150-420); Red Blood Count 4.66 M/mm3 (4.20-5.40); White Blood Count 6.7 K/mm3 (4.8-10.8)
[2025-07-15 14:16] LABS: Iron 98 ug/dL (37-170)
[2025-07-15 14:24] LABS: Percent Iron Saturation 43 % (20-50)
[2025-07-15 14:29] LABS: Band Neutrophils Percent 4 % (0-6); Basophils Absolute Manual 0.13 K/mm3 (0-0.1); Basophils Percent Manual 2 % (0-1); Eosinophils Absolute Manual 0.53 K/mm3 (0.02-0.50); Eosinophils Percent Manual 8 % (1-6); Lymphocytes Absolute Manual 0.53 K/mm3 (1.1-4.5); Lymphocytes Percent Manual 8 % (18-44); Monocytes Absolute Manual 1.20 K/mm3 (0.1-0.90); Monocytes Percent Manual 18 % (3-9); Neutrophils Absolute Manual 4.02 K/mm3 (1.3-6.7); Neutrophils Percent Manual 56 % (46-73)
--- OUTSIDE RECORDS SUMMARY | 2025-07-15 14:37 | XMS_ITS | Encounter Summary ---
Author Organization [facility] Address [address] [place] [address] Phone Care Team Providers Care Bottom Turning Lathe Tender Name Role Phone Nl-Tawny Valdes - Unavailable Unavailab Ferny Harris MD PhD Unavailable [phone] Tera Seals DO Primary Care Provider Charu Galdamez [facility] Unavailable [phone] Encounter Details Date Type Department Care Team [...] often do you attend chur ch or alevism services? Never 01/28/2021 Do you belong to any clubs o r organizations such as religion groups, unions, fraternal or athletic groups, or [...] on file Legal Sex Female 6:53 AM NIGHTMAN Gender Identity Not on file Sexual Orientation [...] documented as of this encounter Care Teams Bottom Turning Lathe Tender Relationship Specialty Start Date End Date Tera Seals DO [address] [place] [address] PCP - General Family Medicine 05/05/22 Nl-Neuromuscle, [facility] - [address] [place] [address] Referring Physician Neurology 04/18/18 Ferny Kearns MD PhD [address] [place] [address] Referring Physician Cardiology 04/21/21 Charu Galdamez, [facility] 45[address] [facility] ([facility]) Mailstop [phone] [place] [address] SHOP Outpatient Feather Renovator 01/24/23 02/20/23 documented as of this encounter
--- OUTSIDE RECORDS SUMMARY | 2025-07-15 14:37 | XMS_ITS | Clinical Summary ---
Author Organization [facility], formerly [facility] Address [address] [place] [address] Care Team Providers Care Mophead Trimmer And Wrapper Name Role Phone Nl-Austin Valdessm - Unavailable Unavailab Ferny Harris MD PhD Unavailable [phone] Tera Seals DO Primary Care Provider Allergies Active Allergy Reactions Criticality Noted Date Comments Azithromycin Rash Medium 02/16/2025 Gluten Diarrhea,Hives Medium 06/15/2018 Metoprolol Hallucinations Medium 11/09/2022 Wheat Diarrhea,Hives Medium 12/31/2012 Medications sertraline (ZOLOFT) 100 mg tablet Take 1 tablet (100 mg total) by mouth panel machine operator before breakfast 0 Active atorvastatin (LIPITOR) 40 mg tablet Take 1 tablet (40 mg total) by mouth daily 90 tablet 3 2 Active MAGNESIUM ORAL Take 1,000 mg by mouth 2 (two) times a day Active VITAMIN A ORAL Take 1 tablet by mouth panel machine operator before breakfast Active Farxiga 10 mg tablet Take 1 tablet (10 mg total) by mouth daily 3 Active spironolactone (ALDACTONE) 25 mg tablet Take 0.5 tablets (12.5 mg total) by mouth every morning Active levothyroxine (SYNTHROID) 137 mcg tablet Take 1 tablet (137 mcg total) by mouth panel machine operator before breakfast 4 Active ascorbic acid 500 mg tablet,chewable Take 1 tablet/chew tab (500 mg total) by mouth daily Active pantoprazole DR (PROTONIX) 40 mg EC tablet Take 1 tablet (40 mg total) by mouth daily 4 Active zinc gluconate 50 mg tablet Take 1 tablet (50 mg total) by mouth daily Active pyridoxine (VITAMIN B-6) 100 mg tablet Take 1 tablet (100 mg total) by mouth daily Active valACYclovir (VALTREX) 1 gram tablet as needed 4 Active benzonatate (TESSALON) 200 mg capsule 4 Active octreotide LAR (SandoSTATIN LAR Depot) 20 mg suspension,exte nded rel recon Inject 20 mg, intramuscularl y, in the left or right gluteal Q28 days. Alternate gluteal injection sites 3 each 3 4 Active fluticasone propionate (FLONASE) 50 mcg/actuation nasal spray as needed 5 Active cetirizine (ZyrTEC) 10 mg chewable tablet Take 1 tablet (10 mg total) by mouth daily Active chlorhexidine (PERIDEX) 0.12 % oral rinse 5 Active Eliquis 5 mg tablet TAKE ONE TABLET BY MOUTH TWICE A DAY 180 tablet 3 5 Active clonazePAM (KlonoPIN) 1 mg tablet Take 1 tablet (1 mg total) by mouth daily 30 tablet 3 5 Active cephalexin (KEFLEX) 500 mg capsule Take 1 capsule (500 mg total) by mouth 2 (two) times a day 5 Active torsemide (DEMADEX) 20 mg tablet TAKE ONE TABLET BY MOUTH EVERY MORNING 90 tablet 1 5 Active Dupixent Pen 300 mg/2 mL pen injector 5 Active Hospital, Clinic, or Other Facility [...] stable Assessment & Plan (06/27/2024 3:47 PM MANAGER ARMY): If the patient is not able to [...] (09/24/2022): Added automatically from request for surgery [id number] Atrial fibrillation with RVR 09/13/2022 Assessment & Plan (09/18/2022 1:45 PM MANAGER ARMY): A fib diagnosed 08/16/2022, previously on metop [...] recs Assessment & Plan (09/17/2022 9:57 AM MANAGER ARMY): A fib diagnosed 08/16/2022, previously on metop [...] recs Assessment & Plan (09/16/2022 10:20 AM MANAGER ARMY): A fib diagnosed 08/16/2022, previously on metop [...] recs Assessment & Plan (09/15/2022 9:09 AM MANAGER ARMY): A fib diagnosed 08/16/2022, previously on metop [...] recs Assessment & Plan (09/14/2022 11:08 AM MANAGER ARMY): A fib diagnosed 08/16/2022, previously on metop [...] recs Assessment & Plan (09/13/2022 3:07 PM MANAGER ARMY): A fib diagnosed 08/16/2022, previously on metop [...] (08/08/2022): Added automatically from request for surgery [id number] Anemia in other chronic diseases classified else where 02/15/2022 Depression 10/31/2021 Assessment & Plan (09/18/2022 1:45 PM MANAGER ARMY): Continue home sertraline, klonopin Assessment & Plan (09/17/2022 9:57 AM MANAGER ARMY): Continue home sertraline, klonopin Assessment & Plan (09/16/2022 10:20 AM MANAGER ARMY): Continue home sertraline, klonopin Assessment & Plan (09/15/2022 9:12 AM MANAGER ARMY): Continue home sertraline, klonopin Assessment & Plan (09/14/2022 11:08 AM MANAGER ARMY): Continue home sertraline, klonopin Assessment & Plan (09/13/2022 3:12 PM MANAGER ARMY): Continue home sertraline Assessment & Plan (11/01/2021 1:41 PM CDT): -Cont Clonazapam nightly and Sertraline 100 Assessment & Plan (10/31/2021 5:51 PM CDT): -Cont Clonazapam nightly and Sertraline 100 Coronary artery disease 08/18/2021 Overview (08/18/2021): Added automatically from request for surgery [id number] Assessment & Plan (12/13/2022 6:51 PM CDT): S/p LHC and PCI 08/2021: RCA and LCx, 10/2021: LAD and diagonal -Cont home Plavix 75, atorvastatin 40 + losartan 12.5 Assessment & Plan (09/18/2022 1:45 PM MANAGER ARMY): S/p PCI 3/22 - plavix and xarelto on hold for procedure - metop as above - continue statin Assessment & Plan (09/17/2022 9:57 AM MANAGER ARMY): S/p PCI 3/22 - plavix and xarelto on hold for procedure - metop as above - continue statin Assessment & Plan (09/16/2022 10:20 AM MANAGER ARMY): S/p PCI 3/22 - plavix and xarelto on hold for procedure - metop as above - continue statin Assessment & Plan (09/15/2022 9:12 AM MANAGER ARMY): S/p PCI 3/22 - plavix and xarelto on hold for procedure - metop as above - continue statin Assessment & Plan (09/14/2022 11:08 AM MANAGER ARMY): S/p PCI 3/22 - plavix and xarelto on hold for procedure - metop as above - continue statin Assessment & Plan (09/13/2022 3:08 PM MANAGER ARMY): S/p PCI 11/01 - plavix and xarelto [...] failure 04/16/2021 Overview (04/16/2021): Assessment & Plan (07/08/2025 8:19 AM MANAGER ARMY): Continue Losartan, torsemide and apixaban, follow up with cardiology This is certainly a contributor to her persistent cough and dyspnea Assessment & Plan (12/17/2024 2:19 PM CDT): Continue Losartan and apixaban, follow up with cardiology This may be a contributor to her persistent cough and dyspnea as well Assessment & Plan (10/15/2024 4:24 PM MANAGER ARMY): Continue Losartan and follow up with cardiology [...] farixga Assessment & Plan (09/18/2022 1:45 PM MANAGER ARMY): EF 40%, 2/2 ischemic CM - taking [...] recs Assessment & Plan (09/17/2022 9:57 AM MANAGER ARMY): EF 40%, 2/2 ischemic CM - taking [...] recs Assessment & Plan (09/16/2022 10:20 AM MANAGER ARMY): EF 40%, 2/2 ischemic CM - taking [...] recs Assessment & Plan (09/15/2022 9:11 AM MANAGER ARMY): EF 40%, 2/2 ischemic CM - taking [...] recs Assessment & Plan (09/14/2022 11:08 AM MANAGER ARMY): EF 40%, 2/2 ischemic CM - taking lasix as needed at home - BNP elevated on admission, not clinically volume overloaded on exam - s/p 1u pRBC 2, will hold further IVF - will give lasix IV 40mg x1 2/2 - repeat TTE - cards c/s- appreciate recs Assessment & Plan (09/13/2022 3:11 PM MANAGER ARMY): EF 40%, 2/2 ischemic CM - taking [...] 03/2020 - appears comfortable upon transfer to [facility], exam improved with IV diuresis [...] 03/2020 - appears comfortable upon transfer to [facility], exam improved with IV diuresis [...] 03/2020 - appears comfortable upon transfer to [facility], exam improved with IV diuresis [...] 03/2020 - appears comfortable upon transfer to [facility], warm and wet on exam [...] (02/17/2021): Added automatically from request for surgery [id number] Assessment & Plan (06/27/2024 3:48 PM MANAGER ARMY): Based on today's blood work she is [...] (02/17/2021): Added automatically from request for surgery [id number] Assessment & Plan (12/11/2024 6:03 PM CDT): Continue close monitoring of her hemoglobin and iron stores. The patient will continue close follow-up with Hematology Deep vein thrombosis (DVT) associated with COVID -19 09/13/2020 Assessment & Plan (09/18/2022 1:45 PM MANAGER ARMY): Hold home xarelto for procedure as above Assessment & Plan (09/17/2022 9:57 AM MANAGER ARMY): Hold home xarelto for procedure as above Assessment & Plan (09/16/2022 10:20 AM MANAGER ARMY): Hold home xarelto for procedure as above Assessment & Plan (09/15/2022 9:12 AM MANAGER ARMY): Hold home xarelto for procedure as above Assessment & Plan (09/14/2022 11:08 AM MANAGER ARMY): Hold home xarelto for procedure as above Assessment & Plan (09/13/2022 3:13 PM MANAGER ARMY): Hold home xarelto for procedure as above [...] 07/03/2020 Assessment & Plan (07/04/2020 11:44 AM MANAGER ARMY): CT C/A/P 07/02 showed extensive portal venous [...] dc. Will need outpatient heme f/u for systems consultant AC management. - Switched from Xarelto to [...] 07/03/2020 Assessment & Plan (07/04/2020 11:28 AM MANAGER ARMY): Unclear etiology, likely related to underlying GI [...] (04/29/2020): Added automatically from request for surgery [id number] Gastroesophageal reflux disease 02/11/2020 Overview (02/11/2020): Added automatically from request for surgery [id number] Assessment & Plan (07/08/2025 8:20 AM MANAGER ARMY): Continue pantoprazole We have discussed the relationship between uncontrolled JUAN and chronic cough Avoid trigger foods, no eating 2-3 hours before bed Assessment & Plan (12/11/2024 6:02 PM CDT): Continue PPI Assessment & Plan (06/27/2024 3:44 PM MANAGER ARMY): The patient will continue Protonix Assessment & [...] CBC Assessment & Plan (07/04/2020 11:33 AM MANAGER ARMY): - Cont PPI daily Assessment & Plan (07/03/2020 11:50 AM MANAGER ARMY): - Cont PPI daily Assessment & Plan (07/02/2020 1:59 PM MANAGER ARMY): - Cont PPI daily Assessment & Plan (07/01/2020 2:59 PM MANAGER ARMY): - Cont PPI daily Assessment & Plan (06/30/2020 2:10 PM MANAGER ARMY): - Cont PPI IV BID Assessment & Plan (06/29/2020 2:04 PM MANAGER ARMY): - Cont PPI IV BID Assessment & Plan (06/28/2020 2:09 PM MANAGER ARMY): - Cont PPI IV BID Assessment & Plan (06/27/2020 6:05 AM MANAGER ARMY): Currently starting pantoprazole 40 mg IV b.i.d. pending evaluation for GI bleed. Dysphagia 02/11/2020 Overview (02/11/2020): Added automatically from request for surgery [id number] Allergic rhinitis 08/11/2019 Periodic limb movement disorder 08/11/2019 Assessment & Plan (11/01/2021 1:40 PM CDT): -Cont home Ropinirole 0.5 Assessment & Plan (10/31/2021 5:44 PM CDT): -Cont home Ropinirole 0.5 Bronchiectasis without acute exacerbation 2018 Assessment & Plan (07/08/2025 8:18 AM MANAGER ARMY): Continue to use flutter valve several times per day everyday. Continue NAC 600 mg oral twice daily If she begins to produce larger amounts of sputum I will plan to reorder sputum cultures and AFB samples, possibly CT chest however at this time she does not have a persistent productive cough She may benefit from vest therapy in the future Assessment & Plan (12/17/2024 2:17 PM CDT): Continue to use flutter valve several times per day everyday. She should continue NAC 600 mg oral twice daily If she begins to produce larger amounts of sputum I will plan to reorder sputum cultures and AFB samples She may benefit from vest therapy in the future Assessment & Plan (10/15/2024 4:22 PM MANAGER ARMY): I have reinforced that she must use [...] future Assessment & Plan (07/04/2020 11:33 AM MANAGER ARMY): History of bronchiectasis per imaging and mild [...] now Assessment & Plan (07/03/2020 12:53 PM MANAGER ARMY): History of bronchiectasis per imaging and mild [...] now Assessment & Plan (07/02/2020 2:00 PM MANAGER ARMY): History of bronchiectasis per imaging and mild obstructive pulmonary disease per PFTs with patient recently prescribed albuterol and Symbicort which she reports she does not take as she does not really have any pulmonary symptoms except for when she was recently hospitalized with COVID-19 - Continue to monitor for now Assessment & Plan (07/01/2020 3:00 PM MANAGER ARMY): History of bronchiectasis per imaging and mild obstructive pulmonary disease per PFTs with patient recently prescribed albuterol and Symbicort which she reports she does not take as she does not really have any pulmonary symptoms except for when she was recently hospitalized with COVID-19 - Continue to monitor for now Assessment & Plan (06/30/2020 2:10 PM MANAGER ARMY): History of bronchiectasis per imaging and mild obstructive pulmonary disease per PFTs with patient recently prescribed albuterol and Symbicort which she reports she does not take as she does not really have any pulmonary symptoms except for when she was recently hospitalized with COVID-19. - Continue to monitor for now Assessment & Plan (06/29/2020 2:04 PM MANAGER ARMY): History of bronchiectasis per imaging and mild obstructive pulmonary disease per PFTs with patient recently prescribed albuterol and Symbicort which she reports she does not take as she does not really have any pulmonary symptoms except for when she was recently hospitalized with COVID-19. - Continue to monitor for now Assessment & Plan (06/28/2020 2:09 PM MANAGER ARMY): History of bronchiectasis per imaging and mild obstructive pulmonary disease per PFTs with patient recently prescribed albuterol and Symbicort which she reports she does not take as she does not really have any pulmonary symptoms except for when she was recently hospitalized with COVID-19. - Continue to monitor for now Assessment & Plan (06/27/2020 6:03 AM MANAGER ARMY): History of bronchiectasis per imaging and mild [...] 07/10/2018 Assessment & Plan (08/15/2019 12:53 PM MANAGER ARMY): - 73 y.o. woman with balance problems [...] worsens Assessment & Plan (07/07/2019 11:49 AM MANAGER ARMY): - 73 y.o. woman with balance problems [...] tTG. 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 Although, pt and family report that patient has been strict with her diet. 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 - GI c/s for inpatient scopes as above Assessment & Plan (06/29/2020 2:03 PM MANAGER ARMY): Continue gluten and wheat free diet once allowed to eat pending planned procedures. - GI c/s for inpatient scopes as above Assessment & Plan (06/28/2020 2:07 PM MANAGER ARMY): Continue gluten and wheat free diet once allowed to eat pending planned procedures. - GI c/s for inpatient scopes as above Assessment & Plan (06/27/2020 6:03 AM MANAGER ARMY): Continue gluten and wheat free diet once allowed to eat pending planned procedures. 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 -I d/w GI biliary - plan for EUS-guided biopsy today Assessment & Plan (06/17/2018 12:43 PM MANAGER ARMY): -seen on OSH chest CT after review by our radiologists. They recommend standard protocol C/A/P CT with contrast to better evaluate -add on LDH Pericardial effusion 06/15/2018 Assessment & Plan (06/27/2020 6:07 AM MANAGER ARMY): History of duodenal ulcer. Continue PPI as above. Assessment & Plan (06/18/2018 10:11 AM MANAGER ARMY): -reported large pericardial effusion, but only small here on echo and on review of OSH CT -possibly related to mediastinal mass Assessment & Plan (06/17/2018 12:49 PM MANAGER ARMY): -reported large pericardial effusion, but only small here on echo and on review of OSH CT -possibly related to mediastinal mass -further imaging as above. Assessment & Plan (06/16/2018 11:08 AM MANAGER ARMY): Transferred from OSH with c/f new pericardial [...] 05/18/2018 Assessment & Plan (07/04/2020 11:30 AM MANAGER ARMY): History of RA, PMR and fibromyalgia followed by rheumatology Dr. Robertson and managed with methotrexate. Patient reports being out of methotrexate for 2 weeks and being unable to contact her channel manager during this period of time. - Cont holding methotrexate, may resume at or Assessment & Plan (07/03/2020 11:14 AM MANAGER ARMY): History of RA, PMR and fibromyalgia followed by rheumatology Dr. Robertson and managed with methotrexate. Patient reports being out of methotrexate for 2 weeks and being unable to contact her channel manager during this period of time. - Cont holding methotrexate in setting of ALEXANDRA, may resume at dc Assessment & Plan (07/02/2020 1:59 PM MANAGER ARMY): History of RA, PMR and fibromyalgia followed by rheumatology Dr. Robertson and managed with methotrexate. Patient reports being out of methotrexate for 2 weeks and being unable to contact her channel manager during this period of time. - Cont holding methotrexate in setting of ALEXANDRA, may resume at dc Assessment & Plan (07/01/2020 2:58 PM MANAGER ARMY): History of RA, PMR and fibromyalgia followed by rheumatology Dr. Robertson and managed with methotrexate. Patient reports being out of methotrexate for 2 weeks and being unable to contact her channel manager during this period of time. - Cont holding methotrexate in setting of ALEXANDRA, may resume at dc Assessment & Plan (06/30/2020 2:09 PM MANAGER ARMY): History of RA, PMR and fibromyalgia followed by rheumatology Dr. Robertson and managed with methotrexate. Patient reports being out of methotrexate for 2 weeks and being unable to contact her channel manager during this period of time. - Cont holding methotrexate in setting of ALEXANDRA - Touch base with Rheumatology regarding refills Assessment & Plan (06/29/2020 2:03 PM MANAGER ARMY): History of RA, PMR and fibromyalgia followed by rheumatology Dr. Robertson and managed with methotrexate. Patient reports being out of methotrexate for 2 weeks and being unable to contact her channel manager during this period of time. - Cont holding methotrexate in setting of ALEXANDRA -Touch base with Rheumatology regarding refills Assessment & Plan (06/28/2020 1:58 PM MANAGER ARMY): History of RA, PMR and fibromyalgia followed by rheumatology Dr. Robertson and managed with methotrexate. Patient reports being out of methotrexate for 2 weeks and being unable to contact her channel manager during this period of time. - Cont holding methotrexate in setting of ALEXANDRA -Touch base with Rheumatology regarding refills Assessment & Plan (06/27/2020 6:08 AM MANAGER ARMY): History of RA, PMR and fibromyalgia followed by rheumatology Dr. Robertson and managed with methotrexate. Patient reports being at a methotrexate for 2 weeks and being unable to contact her channel manager during this period of time. -given acute renal failure reported by the patient at the outside hospital, it may have actually been beneficial that she was not taking methotrexate during this time. -follow admission creatinine, continue holding methotrexate for now -touch base with Rheumatology regarding refills Assessment & Plan (06/18/2018 10:09 AM MANAGER ARMY): -Serologic workup for underlying rheumatic disease unremarkable. No active synovitis on exam. -Largely resolved. Assessment & Plan (06/17/2018 12:45 PM MANAGER ARMY): -Serologic workup for underlying rheumatic disease unremarkable. No active synovitis on exam. Assessment & Plan (06/16/2018 11:12 AM MANAGER ARMY): Noted joint pains, diffusely, mainly left shoulder. [...] 8 Assessment & Plan (07/07/2020 4:12 PM MANAGER ARMY): Hx chronic diarrhea, possible celiac, initially bloody, [...] PRN. Assessment & Plan (07/04/2020 11:25 AM MANAGER ARMY): Hx of chronic diarrhea in setting of [...] <7 Assessment & Plan (07/03/2020 12:57 PM MANAGER ARMY): Hx of chronic diarrhea in setting of [...] <7 Assessment & Plan (07/02/2020 2:05 PM MANAGER ARMY): Hx of chronic diarrhea in setting of [...] recs Assessment & Plan (07/01/2020 3:08 PM MANAGER ARMY): Hx of chronic diarrhea in setting of [...] recs Assessment & Plan (06/30/2020 2:13 PM MANAGER ARMY): Hx of chronic diarrhea in setting of [...] EGD/C-scope Assessment & Plan (06/29/2020 1:59 PM MANAGER ARMY): Hx of chronic diarrhea in setting of [...] signed Assessment & Plan (06/28/2020 2:14 PM MANAGER ARMY): Hx of chronic diarrhea in setting of [...] signed Assessment & Plan (06/27/2020 6:14 AM MANAGER ARMY): Patient with chronic diarrhea in setting of [...] signed Assessment & Plan (06/18/2018 10:10 AM MANAGER ARMY): Resolved with gluten-free diet, although biopsies weren't consistent with celiac Assessment & Plan (06/17/2018 12:45 PM MANAGER ARMY): Resolved with gluten-free diet Assessment & Plan (06/16/2018 11:00 AM MANAGER ARMY): Resolved. Assessment & Plan (06/15/2018 5:37 AM [...] 05/17/2018 Assessment & Plan (06/18/2018 10:10 AM MANAGER ARMY): -cont therapeutic Lovenox (holding dose for procedure today) Assessment & Plan (06/17/2018 12:47 PM MANAGER ARMY): -cont therapeutic Lovenox Assessment & Plan (06/15/2018 5:37 AM CDT): On Lovenox at home. -Will hold lovenox at this time given possibility for hemorrhagic component to effusion and possible need for drain. Assessment & Plan (05/22/2018 12:03 AM CDT): INR down to <2 today, started on Hep gtt, will hold on AM of 1010 for scope Heme consulted for elevated INR, [...] oxybutynin Assessment & Plan (07/04/2020 11:29 AM MANAGER ARMY): - Cont oxybutynin Assessment & Plan (07/03/2020 11:14 AM MANAGER ARMY): - Cont oxybutynin Assessment & Plan (07/02/2020 1:59 PM MANAGER ARMY): - Cont oxybutynin Assessment & Plan (07/01/2020 2:58 PM MANAGER ARMY): - Cont oxybutynin Assessment & Plan (06/30/2020 2:10 PM MANAGER ARMY): - Cont oxybutynin - Cr now improving, maykel shaffer'd Assessment & Plan (06/29/2020 2:03 PM MANAGER ARMY): - Cont oxybutynin - Cr now improving, maykel shaffer'd Assessment & Plan (06/28/2020 2:00 PM MANAGER ARMY): - Cont oxybutynin - Cr now improving, will dc brar and do a void trial Assessment & Plan (06/27/2020 6:07 AM MANAGER ARMY): Resume oxybutynin. Currently with Brar in place. Pending creatinine will remove Brar and attempt voiding trial. Assessment & Plan (05/17/2018 2:16 AM CDT): Continue home Mybretriq Hypothyroidism 05/17/2016 Assessment & Plan (12/13/2022 6:48 PM CDT): -Cont home Synthroid 137 Assessment & Plan (09/18/2022 1:45 PM MANAGER ARMY): Continue home synthroid - check TSH given RVR- wnl Assessment & Plan (09/17/2022 9:58 AM MANAGER ARMY): Continue home synthroid - check TSH given RVR- wnl Assessment & Plan (09/16/2022 10:21 AM MANAGER ARMY): Continue home synthroid - check TSH given RVR- wnl Assessment & Plan (09/15/2022 9:12 AM MANAGER ARMY): Continue home synthroid - check TSH given RVR- wnl Assessment & Plan (09/14/2022 11:09 AM MANAGER ARMY): Continue home synthroid - check TSH given RVR- wnl Assessment & Plan (09/13/2022 3:10 PM MANAGER ARMY): Continue home synthroid - check TSH given [...] now Assessment & Plan (07/04/2020 11:29 AM MANAGER ARMY): - TSH 2.16, continue home Synthroid Assessment & Plan (07/03/2020 11:13 AM MANAGER ARMY): - TSH 2.16, continue home Synthroid Assessment & Plan (07/02/2020 1:59 PM MANAGER ARMY): - TSH 2.16, continue home Synthroid Assessment & Plan (07/01/2020 2:59 PM MANAGER ARMY): - TSH 2.16, continue home Synthroid Assessment & Plan (06/30/2020 2:10 PM MANAGER ARMY): - TSH 2.16, continue home Synthroid Assessment & Plan (06/29/2020 2:03 PM MANAGER ARMY): - TSH 2.16, continue home Synthroid Assessment & Plan (06/28/2020 1:57 PM MANAGER ARMY): - TSH 2.16, continue home Synthroid Assessment & Plan (06/27/2020 6:06 AM MANAGER ARMY): Add on TSH, continue home Synthroid. Assessment & Plan (06/18/2018 10:10 AM MANAGER ARMY): -cont levothyroxine Assessment & Plan (06/17/2018 12:47 PM MANAGER ARMY): -cont levothyroxine Assessment & Plan (06/16/2018 11:03 AM MANAGER ARMY): Checked TSH and progressive elevation to 9.10 [...] (obstructive sleep apnea) 01/23/2013 Assessment & Plan (07/08/2025 8:21 AM MANAGER ARMY): She has historically had intermittent compliance with PAP therapy I recommend close follow p with sleep medicine. Assessment & Plan (12/13/2022 6:48 PM CDT): [...] protocol Assessment & Plan (06/18/2018 10:09 AM MANAGER ARMY): Continue home nocturnal CPAP at 9 Assessment & Plan (06/17/2018 12:45 PM MANAGER ARMY): Continue home CPAP at 9. Compliant with CPAP as inpatient. Assessment & Plan (06/16/2018 11:03 AM MANAGER ARMY): Continue home CPAP at 9. Compliant with [...] above Assessment & Plan (07/04/2020 11:29 AM MANAGER ARMY): - Hold losartan in setting of ALEXANDRA, normotensive, may resume at dc Assessment & Plan (07/03/2020 11:13 AM MANAGER ARMY): - Hold losartan in setting of ALEXANDRA, normotensive, may resume at dc Assessment & Plan (07/02/2020 1:59 PM MANAGER ARMY): - Hold losartan in setting of ALEXANDRA, may resume at dc Assessment & Plan (07/01/2020 2:59 PM MANAGER ARMY): - Hold losartan in setting of ALEXANDRA, may resume at dc Assessment & Plan (06/30/2020 2:10 PM MANAGER ARMY): - Hold losartan in setting of ALEXANDRA Assessment & Plan (06/29/2020 2:03 PM MANAGER ARMY): - Hold losartan in setting of ALEXANDRA Assessment & Plan (06/28/2020 1:56 PM MANAGER ARMY): - Holding losartan in setting of ALEXANDRA Assessment & Plan (06/27/2020 6:06 AM MANAGER ARMY): Holding losartan 25 mg daily given reported [...] diuresis - continue to monitor Septic thrombophlebitis 07/06/2020 03/08/2021 Overview (07/06/2020): Assessment & Plan (07/07/2020 4:10 PM MANAGER ARMY): 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 With some somnolence 07/05. Improved after holding home klonopin. Also holding ropinirole. Developed some mild withdrawal tremors with holding klonopin so resumed today and will recommend to taper on outpatient basis given propensity for delirium. Assessment & Plan (07/04/2020 11:27 AM MANAGER ARMY): Appeare confused/lethargic over the last few days, [...] Delirium and fall precautions - Hold some [employer] affecting meds Assessment & Plan (07/03/2020 12:52 PM MANAGER ARMY): Appears confused/lethargic over the last few days, [...] and fall precautions - Will hold some [employer] affecting meds Assessment & Plan (07/02/2020 2:08 PM MANAGER ARMY): Appears confused over the last few days, [...] precautions Assessment & Plan (07/01/2020 3:24 PM MANAGER ARMY): Appeared confused yesterday and today, daughter reports [...] 10/31/2021 Assessment & Plan (07/04/2020 11:33 AM MANAGER ARMY): - Recovered - diagnosed 05/23, repeat covid Ag testing negative Assessment & Plan (07/03/2020 12:12 PM MANAGER ARMY): - Recovered - diagnosed 05/22, repeat covid Ag testing negative Assessment & Plan (07/02/2020 1:59 PM MANAGER ARMY): - Recovered - diagnosed 05/22, repeat covid Ag testing negative Assessment & Plan (07/01/2020 2:59 PM MANAGER ARMY): - Recovered - diagnosed 05/22, repeat covid Ag testing negative Assessment & Plan (06/30/2020 2:10 PM MANAGER ARMY): Recovered - diagnosed 05/22, repeat covid Ag testing negative Assessment & Plan (06/29/2020 2:06 PM MANAGER ARMY): Recovered - diagnosed 05/22, repeat covid Ag testing negative Assessment & Plan (06/28/2020 2:10 PM MANAGER ARMY): History of COVID-19 infection initially diagnosed in May 22, 2020 at an OSH. Labs not currently available for review. Patient required hospitalization for decreased saturations although is now recovered. - Repeat COVID swab negative here Assessment & Plan (06/27/2020 6:18 AM MANAGER ARMY): History of COVID-19 infection initially diagnosed in [...] 10/31/2021 Assessment & Plan (07/06/2020 3:49 PM MANAGER ARMY): Urine culture with pansensitive E coli at OSH. S/p 5 days of abx at OSH and 5d CTX here. Assessment & Plan (07/04/2020 11:29 AM MANAGER ARMY): Urine culture with pansensitive E coli at OSH. Unclear what antibiotic she was receiving although presumably she had received 5 days of it. - Repeat UA 2+ LE, 11-20 wbc 3+ yeast - Urine cx no growth, no urinary symptoms - Completed 5 days of CTX here Assessment & Plan (07/03/2020 11:13 AM MANAGER ARMY): Urine culture with pansensitive E coli at OSH. Unclear what antibiotic she was receiving although presumably she has received 5 days of it. - Repeat UA 2+ LE, 11-20 wbc 3+ yeast - no urinary symptoms - Urine cx no growth - Completed 5 days of CTX here on 07/01 Assessment & Plan (07/02/2020 1:58 PM MANAGER ARMY): Urine culture with pansensitive E coli at OSH. Unclear what antibiotic she was receiving although presumably she has received 5 days of it. - Repeat UA 2+ LE, 11-20 wbc 3+ yeast - no urinary symptoms - Urine cx no growth - Completed 5 days of CTX here on 07/01 Assessment & Plan (07/01/2020 2:58 PM MANAGER ARMY): Urine culture with pansensitive E coli at OSH. Unclear what antibiotic she was receiving although presumably she has received 5 days of it. - Repeat UA 2+ LE, 11-20 wbc 3+ yeast - no urinary symptoms - Urine cx no growth - Continue CTX Assessment & Plan (06/30/2020 2:09 PM MANAGER ARMY): Urine culture with pansensitive E coli. Unclear what antibiotic she was receiving although presumably she has received 5 days of it. - Repeat UA 2+ LE, 11-20 wbc 3+ yeast - no urinary symptoms - Urine cx no growth - Continue CTX for now Assessment & Plan (06/29/2020 2:03 PM MANAGER ARMY): Urine culture with pansensitive E coli. Unclear what antibiotic she was receiving although presumably she has received 5 days of it. - Repeat UA 2+ LE, 11-20 wbc 3+ yeast - no urinary symptoms - Urine cx no growth - Continues to have rising leukocytosis, will resume CTX and CTM Assessment & Plan (06/28/2020 2:13 PM MANAGER ARMY): Urine culture with pansensitive E coli. Unclear what antibiotic she was receiving although presumably she has received 5 days of it. - Repeat UA 2+ LE, 11-20 wbc 3+ yeast - no urinary symptoms - Urine cx no growth - Dc empiric CTX Assessment & Plan (06/27/2020 6:14 AM MANAGER ARMY): Urine culture with pansensitive E coli. Unclear what antibiotic she was receiving although presumably she has received 5 days of it. Will repeat UA and decide on re-initiation of antibiotics at that point. Fatigue 08/11/2019 10/31/2021 VTE (venous thromboembolism) 05/22/2019 10/31/2021 Assessment & Plan (07/04/2020 11:32 AM MANAGER ARMY): History of unprovoked PE and lower extremity [...] gtt. Assessment & Plan (07/03/2020 12:52 PM MANAGER ARMY): History of unprovoked PE and lower extremity [...] 07/02 Assessment & Plan (07/02/2020 1:58 PM MANAGER ARMY): History of unprovoked PE and lower extremity [...] EGD/C-scope Assessment & Plan (07/01/2020 2:57 PM MANAGER ARMY): History of unprovoked PE and lower extremity [...] EGD/C-scope Assessment & Plan (06/30/2020 2:08 PM MANAGER ARMY): History of unprovoked PE and lower extremity [...] hold Assessment & Plan (06/29/2020 2:04 PM MANAGER ARMY): History of unprovoked PE and lower extremity [...] hold Assessment & Plan (06/28/2020 2:08 PM MANAGER ARMY): History of unprovoked PE and lower extremity [...] hold Assessment & Plan (06/27/2020 6:05 AM MANAGER ARMY): History of unprovoked PE and lower extremity [...] 06/18/2018 Assessment & Plan (06/16/2018 10:57 AM MANAGER ARMY): Resolving sepsis due to PNA. Febrile and [...] 07/30/2018 Assessment & Plan (07/07/2019 11:41 AM MANAGER ARMY): 2 Elevated INR 05/20/2018 05/21/2018 Assessment & [...] Encounters Date Type Department Care Team Description 06/24/2025 3:00 PM MANAGER AR[employer] Office Visit [facility] Pulmonary at [address] [place] [address] Jodie Hess, VERONICA Bronchiectasis without acute exacerbation (HCC) (Primary Dx); Chronic systolic heart failure (HCC); Gastroesophageal reflux disease without esophagitis; NAI (obstructive sleep apnea) 05/05/2025 1:00 PM CDT [facility] [address] [place] [address] Iron deficiency anemia, unspecified iron deficiency anemia type (Primary Dx); Acute on chronic systolic (congestive) heart failure; Anemia in other chronic diseases classified elsewhere 04/27/2025 Orders Only [facility] Medicine Pathology Outreach [address] [place] [address] Flavia Johns MD 04/23/2025 2:45 PM CDT Office Visit [facility] Medicine Hematology [facility] [address] [place] [phone] Alejandro Shipman MD VTE (venous thromboembolism) (Primary Dx); Iron deficiency anemia, unspecified iron deficiency anemia type; Eosinophilia, unspecified type; Chronic anticoagulation 04/23/2025 2:00 PM CDT Lab [facility] - Lab Collection [facility] [address] [place] [address] Iron deficiency anemia, unspecified iron deficiency anemia type 04/23/2025 1:45 PM CDT Lab [facility] Medicine Oncology Lab [facility] [address] [place] [address] Iron deficiency anemia, unspecified iron deficiency anemia type 04/21/2025 1:45 PM CDT Office Visit [facility] [address] [facility] [address], [place] [address] Mary Ovalle MD Periodic limb movement disorder (Primary Dx); Restless legs syndrome from Last 3 Months Immunizations Immunization Administration Dates Next Due Influenza, Quad, Adjuvantate d, Intramuscular 05/10/2020 Influenza, Quadrivalent, Hig h Dose, Preservative Free, Intrr 10/31/2021 Influenza, Quadrivalent, Spl it, Intramuscular 05/10/2020,05/15/2019,05/28/2018 Influenza, Unspecified 04/13/2022,04/13/2020,10/2018 Pneumococcal Conjugate PCV 13 06/29/2016 Pneumococcal Polysaccharide PPV23 07/31/2017 Surgical History Surgery Date Site/Laterality Comments OR TONSILLECTOMY PRIMARY/SECONDARY <AGE 12 APPENDECTOMY OSTEOCHONDROMA EXCISION [...] Coronary artery disease CHF (congestive heart failure) ([facility]) Anemia persistent Portal vein thrombosis 2020 A-fib [...] often do you attend chur ch or oriental orthodox services? Never 01/24/2023 Do you belong to any clubs o r organizations such as mormonism groups, unions, fraternal or athletic groups, or school groups? No 01/24/2023 How often do you attend meet ings of the clubs or organizations you belong to? Never 01/24/2023 Are you , , di vorced, , never , or living with a partner? 01/24/2023 Overall Financial Resource Strain (CARDIA) Answe r [...] place to sleep or slept in a senior living (including now)? No 01/24/2023 AUDIT-C Answer Date Recorded Frequency of Alcohol Consumption Not on file 06/24/2025 Q2: How many drinks containi ng alcohol do you have on a typical day when you are drinking? Patient does not drink Frequency of Binge Drinking Not on file 06/13 Personal Safety Answer Date Recorded Have you ever been in or are you currently in a harmful physical or emotional relationship or is someone making you feel afraid or unsafe? Denies 03/28/2025 Comments No Sex and Gender Information Value Date Recorded Sex Assigned at Not on file Legal Sex Female 6:53 AM MANAGER ARMY Gender Identity Not on file Sexual Orientation Not on file Last Filed Vital Signs Vital Sign Reading Time Taken Comments Blood Pressure 102/68 06/24/2025 2:34 PM MANAGER ARMY Pulse 54 06/24/2025 2:34 PM MANAGER ARMY Temperature 36.6 C (97.8 F) 06/24/2025 2:34 PM MANAGER ARMY Respiratory Rate 16 06/24/2025 2:34 PM MANAGER ARMY Oxygen Saturation 98% 06/24/2025 2:34 PM MANAGER ARMY Inhaled Oxygen Concentration - - Weight 72.1 kg (159 lb) 06/24/2025 2:34 PM MANAGER ARMY Height 175.3 cm (5' 9.02) 06/24/2025 2:34 PM CS T Body Mass Index 23.47 06/24/2025 2:34 PM MANAGER ARMY Plan of Treatment Health Maintenance Due Date Last Done Comments Zoster Vaccine (1 of 2) 1996 Well Visit 65+ 2011 Depression Screening 01/16/2024 01/15/2023, 12/04/2022, 12/04/2022, Additional history exists Osteoporosis Screening-Bone Density Scan 01/17/2024 01/16/2022 Fall Risk Assessment 01/24/2024 01/23/2023 Influenza Vaccine (#1) 2025 , 04/13/2022, 10/31/2021, Additional history exists DTaP/Tdap/Td Vaccine (2 - Td or Tdap) 08/20/2033 08/20/2023 Pneumococcal vaccine 65+ Completed 017, 06/29/2016, 07/02/2012 Hepatitis B Screening Completed 08/23/2018 Hepatitis C Screening Completed 08/23/2018 Colon Cancer [...] 12/16/2020, 12/02/2019 Medical Devices Implanted Type Area Site Safety Manager Device Identifier Shelf Expiration Date Model / Serial / Lot Air[employer] Inc Vascade Mvp 6-12fr Venous Closure [id number] - [id number] - [id number] Implanted:Qty: 1 on 12/13/2022 by Yohan Carpenter MD at [facility] Collagen Right: Femoral Vein [employer] 09/12/2024 800-612C- 10U / [id number] / [id number] [employer] Vascade Mvp 6-12fr Venous Closure [id number] - [id number] - [id number] Implanted:Qty: 1 on 12/13/2022 by Yohan Carpenter MD at [facility] Collagen Left: Femoral Vein [employer] 09/12/2024 800-612C- 10U / [id number] 09B / [id number] [employer] Vascade Mvp 6-12fr Venous Closure [id number] - [id number] - [id number] Implanted:Qty: 1 on 12/13/2022 by Yohan Carpenter MD at [facility] Collagen Left: Femoral Vein [employer] 09/12/2024 800-612C- 10U / [id number] 09B / [id number] 09B [employer] Device Closure Vascade Od5 Fr Femoral Artery [id number] - [id number] - [id number] Implanted:Qty: 1 on 12/13/2022 by Yohan Carpenter MD at [facility] Collagen Right: Femoral Vein [employer] 09/04/2024 [id number] -05U / [id number] / Med[employer]onic [employer] X [id number] Resolute [place] 3.5mm 2.1-2.7fr 18mm 140cm Rapid Exchange - [id number] Implanted:Qty: 1 on 08/18/2021 by Hero Hernandez MD at [facility] Stent Medtronic Inc 06/10/2024 [id number] / / [id number] [employer] Inc [id number] Stent Coronary De Rx Cocr Ors Msn 2.5x35mm - [id number] Implanted:Qty: 1 on 08/18/2021 by Hero Hernandez MD at [facility] Stent [employer] Inc 02/28/2023 [id number] / / [id number] [place] [employer] [id number] Synergy Xd Monorail 2.75mm 32mm 144cm Delivery System 1 Access - [id number] Implanted:Qty: 1 on 10/31/2021 by Hero Hernandez MD at [facility] Stent [employer] [place] [employer] 11/18/2022 [id number] / / [id number] [employer] [id number] Synergy Xd Monorail 3mm 16mm 144cm Delivery System 1 Access Port - [id number] Implanted:Qty: 1 on 10/31/2021 by Hero Hernandez MD at [facility] Stent [employer] 01/19/2023 [id number] / / [id number] [employer] [id number] Synergy Xd Monorail 2.25mm 12mm 144cm Delivery System 1 Access - [id number] Implanted:Qty: 1 on 10/31/2021 by Hero Hernandez MD at [facility] Stent [employer] 06/08/2023 [id number] / / [id number] [employer] [id number] Synergy Xd Monorail 2.25mm 16mm 144cm Delivery System 1 Access - [id number] Implanted:Qty: 1 on 10/31/2021 by Hero Hernandez MD at [facility] Stent [employer] 12/14/2022 [id number] / / [id number] Breast Bilateral: Breast Explanted Type Area Site Safety Manager Device Identifier Shelf Expiration Date Model / Serial / Lot Implantable Loop Recorder-07/09 Implanted:06/14 (Quantity not on file) Explanted:03/13 (Quantity not on file) Implantable Loop Recorder N/A: Heart [employer] / / Procedures Procedure Name Priority Date/Time Associated Diagnosis Comments SURGICAL PATHOLOGY Routine 04/27/2025 11 :14 AM CDT EGFR Routine 04/23/2025 2:00 PM CDT Iron deficiency anemia, unspecified iron deficiency anemia type DIFFERENTIAL AUTO Routine 04/23/2025 2:0 0 PM CDT Iron deficiency anemia, unspecified iron deficiency anemia type COMPREHENSIVE METABOLIC PANEL Routine 04/23/2025 2:00 PM CDT Iron deficiency anemia, unspecified iron deficiency anemia type CBC WITH AUTO DIFFERENTIAL Routine 04/23/2025 2:00 PM CDT Iron deficiency anemia, unspecified iron deficiency anemia type FERRITIN Routine 04/23/2025 2:00 PM CDT Iron deficiency anemia, unspecified iron deficiency anemia type IRON PROFILE W/ IBC Routine 04/23/2025 2 :00 PM CDT Iron deficiency anemia, unspecified iron deficiency anemia type COLONOSCOPY 03/10/2021 11:25 AM CDT HEPATITIS C ANTIBODY Routine 08/23/2018 11:13 AM MANAGER ARMY Eosinophilia from Last 3 Months or Most Recently Relevant to Health Maintenance Results * Surgical pathology (04/27/2025 11:14 AM CDT) Miscellaneous 04/27/2025 11: 14 AM CDT 04/19/2022 Narrative 05/06/2025 11:12 AM CDT [facility] results best viewed via link to PDF [facility] [address] [place] [address], [address], [place] [address] [email or web address] CONSULT REPORT FINAL Note to Patients: This report may contain a detailed description of human tissue sent by a health care provider to the laboratory for pathologic evaluation. The content of this report is essential for diagnosis and may provide important critical findings. This information may be unfamiliar to patients to review without a medical professional present. It is advised that the patient review this report in the presence of a health care provider who can answer questions and explain the details. PATIENT INFORMATION PATIENT NAME: DIANE SILVA SEX: Joyce : CAROL SPECIMEN INFORMATION COLLECTED: 04/19/2022 RECEIVED: 04/27/2025 REPORTED: 05/06/2025 PHYSICIAN INFORMATION Flavia Johns M.D.: [address] [place] [address], , DERMATOPATHOLOGY REPORT RESULTS DIAGNOSIS: A. SKIN, RIGHT VENTRAL WRIST, SHAVE BIOPSY (CASE #[id number], 4 SLIDES RECEIVED): SCALE-CRUST, IRREGULAR EPIDERMAL HYPERPLASIA AND SUBEPIDERMAL FIBROSIS PROBABLY SECONDARY TO EXCORIATION B. SKIN, RIGHT DORSAL HAND, SHAVE BIOPSY (CASE #[id number], 5 SLIDES RECEIVED): SUBCORNEAL NEUTROPHILIC PUSTULES WITH VESICULATION Note: The sections show two subcorneal neutrophilic pustules with associated keratinocyte necrosis, edema and vesiculation. It is difficult to know if any features may be secondary to trauma/excoriation. The differential diagnosis is broad and includes a pustular drug eruption, subcorneal pustular dermatosis, pustular psoriasis, an immunobullous disorder and miliaria pustulosa. Please correlate clinically. kmb/lac By this signature, I attest that the above diagnosis is based upon my personal examination of the slides(and/or other material indicated in the diagnosis). Shagufta Roberson M.D. Report Electronically Reviewed and Signed Out By Shagufta Roberson M.D. 05/06/2025 11:12:33 CLINICAL INFORMATION A-B. FOLLICULAR BASED PUSTULES SPECIMEN DATAMICROSCOPIC DESCRIPTION: A. There is scale-crust, irregular epidermal hyperplasia and subepidermal fibrosis. A GMS stain performed at an outside laboratory and reviewed at [facility] is negative for fungal forms. (R23.4) B. The histological findings substantiate the above diagnosis. Gram and GMS stains performed at an outside laboratory and reviewed at [facility] are negative for microorganisms. (R23.8) GROSS DESCRIPTION: A. Received for review are 4 slides, including 3 H&E and 1 immunohistochemical/special stained glass slides. The slides are labeled with the original accession [id number], accompanied by a corresponding pathology report. The material originates from [place], [place]. B. Received for review are 5 slides, including 3 H&E and 2 immunohistochemical/special stained glass slides. The slides are labeled with the original accession [id number], accompanied by a corresponding pathology report. The material originates from [place], [place]. Clerical Data Follows A; [id number] The characteristics of special, immunohistochemical, and immunofluorescence stains and in-situ hybridization tests performed by the [facility] were deemed acceptable in ongoing quality assurance associate measures and in compliance with regulations drawn from the Clinical Laboratory Improvement Act [id number] (CLIA '88). Control reactions for all stains performed were deemed adequate and appropriate by a pathologist prior to evaluation of patient tissue. Some diagnoses were rendered with the assistance of laboratory-developed tests utilizing analyte-specific reagents; the performance characteristic of these tests were determined by [facility] and are not cleared or approved by the [place] Food an Drug administration. Laboratory developed test may only be performed in a facility that is certified by the [facility] as a high-complexity laboratory under CLIA '88. These tests are used for clinical purposes and are not investigational. Flavia Johns MD LAB PATHOLOGY ORDERABLES Final Result * (ABNORMAL) eGFR (04/23/2025 2:00 PM CDT) eGFR 40(L) >=60 mL/min/1. 73 m2 Comment: Interpretive Data [...] interpretive data was last reviewed 2021. Blood 04/23/2025 2:00 PM CDT 04/23/2025 2:11 PM CDT us Alejandro Shipman MD LAB BLOOD ORDERABLES Final R esult [facility] Department [place] [address] * Differential, auto (04/23/2025 2:00 PM CDT) Neutrophil abs 3.32 1.50 - 6.50 K/cumm Comment:Testing performed by : [facility], [address] [place] [phone] Lymphocyte abs 0.94 0.80 - 3.30 K/cumm [facility] Comment:Testing performed by : [facility], [address] [place], [place] [phone] Monocyte abs 0.71 0.20 - 0.80 K/cumm CERNER BJ Comment:Testing performed by : [facility], [address] [place] [phone] Eosinophil abs 0.48 0.00 - 0.50 K/cumm CERNER BJ Comment:Testing performed by : [facility], [address] [place] [phone] Basophil abs 0.07 0.00 - 0.10 K/cumm CERNER BJ Comment:Testing performed by : [facility], [address] [place] [phone] Neutrophil pct 60.1 % CERNER BJ Comment: Interpretive Data Percent cell count reference ranges are not reported, since discordance with absolute values may lead to misinterpretation of CBC data. Current Interpretive Data was last revised on 2017. Testing performed by: [facility], [address] [place] [phone] Lymphocyte pct 17.1 % CERNER BJ Comment: Interpretive Data Percent cell count reference ranges are not reported, since discordance with absolute values may lead to misinterpretation of CBC data. Current Interpretive Data was last revised on 2017. Testing performed by: [facility], [address] [place] [phone] Monocyte pct 12.9 % CERJORGE REYNA Comment: Interpretive Data Percent cell count reference ranges are not reported, since discordance with absolute values may lead to misinterpretation of CBC data. Current Interpretive Data was last revised on 2017. Testing performed by: [facility], [address] [place] [phone] Eosinophil pct 8.7 % CERJORGE REYNA Comment: Interpretive Data Percent cell count reference ranges are not reported, since discordance with absolute values may lead to misinterpretation of CBC data. Current Interpretive Data was last revised on 2017. Testing performed by: [facility], [address] [place] [id number] Basophil pct 1.2 % CERJORGE REYNA Comment: Interpretive Data Percent cell count reference ranges are not reported, since discordance with absolute values may lead to misinterpretation of CBC data. Current Interpretive Data was last revised on 2017. Testing performed by: [facility], [address] [place] [phone] Blood 04/23/2025 2:00 PM CDT 04/23/2025 2:07 PM CDT Alejandro Shipman MD LAB BLOOD ORDERABLES Final R esult [facility] One [facility] [place] [address] * Iron profile w/ IBC (04/23/2025 2:00 PM CDT) Iron 60 35 - 145 mcg/dL TIBC 299 250 - 400 mcg/dL [facility] Transferrin saturation 20 20 - 50 % [facility]ISA REYNA Blood 04/23/2025 2:00 PM CDT 04/23/2025 2:11 PM CDT us Alejandro Shipman MD LAB BLOOD ORDERABLES Final R esult LISA REYNA [facility] Department [place] [address] * (ABNORMAL) CBC with auto differential (04/23/2025 2:00 PM CDT) WBC 5.51 3.80 - 9.90 K/cumm Comment:Testing performed by : [facility], [address] [place] [address] Hgb 13.7 11.9 - 15.5 g/dL LISA REYNA Comment:Testing performed by : [facility], [address] [place] [address] Hct 41.7 35.6 - 45.5 % LISA REYNA Comment:Testing performed by : [facility], [address] [place] [address] Plt 216 150 - 400 K/cumm LISA REYNA Comment:Testing performed by : [facility], [address] [place] [address] MPV 9.7 6.8 - 10.4 fL LISA REYNA Comment:Testing performed by : [facility], [address] [place] [address] RBC 4.24 3.90 - 5.20 M/cumm LISA REYNA Comment:Testing performed by : [facility], [address] [place] [address] MCV 98.4(H) 81.3 - 96.4 fL LISA REYNA Comment:Testing performed by : [facility], [address] [place] [address] MCH 32.3 27.1 - 33.3 pg CERJORGE REYNA Comment:Testing performed by : [facility], [address] [place] [address] MCHC 32.9 32.3 - 35.7 g/dL CERJORGE REYNA Comment:Testing performed by : [facility], [address] [place] [phone] RDW CV 15.6(H) 11.1 - 14.9 % [facility] Comment:Testing performed by : [facility], [address] [place] [phone] NRBC abs 0.00 0.00 - 0.01 K/cumm [facility] Comment:Testing performed by : [facility], [address] [place] [phone] Blood 04/23/2025 2:00 PM CDT 04/23/2025 2:07 PM CDT Alejandro Shipman MD LAB BLOOD ORDERABLES Final R esult Performing Organization Address [facility] de Phone Number [facility] Department [place] [address] * Ferritin (04/23/2025 2:00 PM CDT) [facility] Ferritin 72 13 - 150 ng/mL Blood 04/23/2025 2:00 PM CDT 04/23/2025 2:11 PM CDT Alejandro Shipman MD LAB BLOOD ORDERABLES Final R esult Performing Organization Address [facility] de Phone Number [facility] Department [place] [address] * (ABNORMAL) Comprehensive metabolic panel (04/23/2025 2:00 PM CDT) [facility] Sodium 142 135 - 145 mmol/L Potassium, pl 4.3 3.3 - 4.9 mmol/L [facility] Chloride 104 97 - 110 mmol/L [facility] CO2 26 22 - 32 mmol/L [facility] Anion gap 12 2 - 15 mmol/L [facility] BUN 26(H) 6 - 25 mg/dL [facility] Creatinine 1.35(H) 0.60 - 1.10 mg/dL [facility] Glucose 100 70 - 199 mg/dL [facility] Comment: Interpretive Data Fasting glucose >/= [...] interpretive data was last revised 2022. Calcium 9.3 8.5 - 10.3 mg/dL [facility] Bilirubin, total 0.8 0.1 - 1.2 mg/dL [facility] Protein, pl 7.6 6.5 - 8.5 g/dL [facility] Albumin 4.2 3.5 - 5.0 g/dL [facility] Alk phos 119 40 - 130 Units/L [facility] ALT 18 7 - 45 Units/L [facility] AST 30 10 - 45 Units/L [facility] Blood 04/23/2025 2:00 PM CDT 04/23/2025 2:11 PM CDT us Alejandro Shipman MD LAB BLOOD ORDERABLES Final R esult [facility] Department [place] [address] * COLONOSCOPY (03/10/2021 11:25 AM CDT) Anatomical Region Laterality Modality Other Narrative Procedure Note Rosy Valverde MD - 03/10/2021 11:25 AM CDT ENDOSCOPY LAB Patient Name: Diane Silva Procedure Date: 03/10/2021 11:25 AM Date of : 1945 Admit Type: Outpatient Age: 75 Gender: Female Attending MD: Rosy Valverde M.D. Room: [facility] ENDOSCOPY ROOM 01 Note Status: Finalized [...] The scope was passed under direct vision.The [id number] was introduced through the anusand advanced to [...] During normal business hours - Please call [facility] Coordinator: [phone] After hours, evening, nights, weekends and holidays- Please call the hospital gang bore operator at and ask for the GI fellow manager enterprise content management. - . Attending Participation: I personally performed the entire procedure. Electronically Signed By: Rosy Valverde M.D. Rosy Valverde M.D. 03/10/2021 11:51:46 AM Number of Addenda: 0 Note Initiated On: 03/10/2021 11:25 AM Rosy Valverde MD ENDOSCOPY PROCEDURES Fin al Result * Hepatitis C antibody (08/23/2018 11:13 AM MANAGER ARMY) Hep C Ab Nonreactive Nonreactive [facility] Comment: Interpretive Data Positive results should be confirmed by a molecular method. If positive, a second separately collected sample should be submitted for Hepatitis C Virus (HCV) RNA Detection and Quantitation by Real-Time Reverse Nipple Machine Operator-PCR (RT-PCR). Current interpretive data was last revised on 2016. Blood specimen (specimen) 08/23/2018 11:13 AM MANAGER ARMY 08/23/2018 2:46 PM MANAGER ARMY Narrative LISA REYNA - 08/24/2018 10:41 AM MANAGER ARMY Lilian Garcia MD LAB MICROBIOLOGY - GENERAL OR DERABLES Edited Result - Final [facility] One [facility] [place] [address] from Last 3 Months or Most Recently Relevant to Health Maintenance Insurance [facility] MEDICARE [facility] Address: [address] [address] [employer] MEDICARE AET MEDICARE T MEDICARE Advance Directives For more information, please contact: [phone] * Full Code (Latest Code Status on [...] 9:03 AM 09/22/2022 11:59 PM Care Teams Mophead Trimmer And Wrapper Relationship Specialty Start Date End Date Tera Seals DO [address] [place] [address] PCP - General Family Medicine 05/05/22 Nl-Neuromuscle, [facility] - [address] [place] [address] Referring Physician Neurology 04/18/18 Ferny Kearns MD PhD [address] [place] [address] Referring Physician Cardiology 04/21/21
--- OUTSIDE RECORDS SUMMARY | 2025-07-15 14:38 | XMS_ITS | Encounter Summary ---
Author Organization [facility] Address [address] [place] [address] Phone Care Team Providers Care Functional Director Name Role Phone Yousif Benton MD Primary Care Provider [phone] Unknown, Notinfile Primary Care Provider Unavail able Yousif Benton MD Primary Care Provider [phone] Nl-Neuromuscle, Tawny - Unavailable Unavailab Micheal George MD Primary Care Provider Yoselin Garcia RN Unavailable [phone] Ferny Kearns MD PhD Unavailable [phone] Tera Seals DO Primary Care Provider Charu Galdmaez CONTACT WORKER LITHOGRAPHY Unavailable [phone] Encounter Details Date Type Department Care Team (Late st Contact Info) Description 10/25/2015 Orders Only [facility] CAR CLINCONV Provider, MD Maame [address] [place] [address] Social History Tobacco Use Types Packs/Day Years Used Date Smoking Tobacco: Never Comments Unknown Sex and Gender Information Value Date Recorded Sex Assigned at Not on file Legal Sex Female 6:53 AM QUALITY ANALYST Gender Identity Not on file Sexual [...] COVID: Suspected 09/22/2021 09/22/2021 09/23/2021 3:06 AM QUALITY ANALYST COVID: Suspected 11/11/2022 11/11/2022 11/11/2022 1:37 PM CDT C. difficile suspected 03/28/2025 03/28/202503/29 7:26 PM CDT documented as of this encounter Care Teams Functional Director Relationship Specialty Start Date End Date Yousif Benton MD [address] [address] PCP - General 12/27/16 06/07/17 Unknown, Notinfile PCP - General 06/08/17 06/17/17 Yousif Benton MD [address] [address] PCP - General 06/18/17 03/12/20 Micheal Burton MD [address] [place] [address] PCP - General Family Medicine 03/13/20 05/04/22 Tera Seals DO [address] [place] [address] PCP - General Family Medicine 05/05/22 Nl-Neuromuscle, [facility] - [address] [place] [address] Referring Physician Neurology 04/18/18 Yoselin Garcia, RN [address] [facility] [address] [place] [address] SHOP Outpatient Manager Biostatistics 01/28/21 02/24/21 Ferny Kearns MD PhD [address] [facility] [address] [place] [address] Referring Physician Cardiology 04/21/21 Charu Galdamez, [facility] 45[address] [facility] ([facility] Mailstop [phone] [place] [address] SHOP Outpatient Manager Biostatistics 01/24/23 02/20/23 documented as of this encounter
--- OUTSIDE RECORDS SUMMARY | 2025-07-15 14:38 | XMS_ITS | Encounter Summary ---
Author Organization [facility] Address [address] [place] [address] Phone Care Team Providers Care Manager Lighting Name Role Phone Yousif Benton MD Primary Care Provider [phone] Unknown, Notinfile Primary Care Provider Unavail able Yousif Benton MD Primary Care Provider [phone] Nl-Neuromuscle, Tawny - Unavailable Unavailab Micheal George MD Primary Care Provider Yoselin Garcia RN Unavailable [phone] Ferny Kearns MD PhD Unavailable [phone] Tera Seals DO Primary Care Provider Charu Galdamez STORE CASHIER Unavailable [phone] Encounter Details Date Type Department Care Team (Late st Contact Info) Description 07/30/2013 Orders Only [facility] CAR CLINCONV Provider, MD Maame [address] [place] [address] Social History Tobacco Use Types Packs/Day Years Used Date Smoking Tobacco: Never Assessed Comments Unknown Sex and Gender Information Value Date Recorded Sex Assigned at Not on file Legal Sex Female 6:53 AM [facility]OSPITAL [facility] Gender Identity Not on file Sexual Orientation [...] COVID: Suspected 09/22/2021 09/22/2021 09/23/2021 3:06 AM HOSPITAL [facility] COVID: Suspected 11/11/2022 11/11/2022 11/11/2022 1:37 PM CDT C. difficile suspected 03/28/2025 03/28/202503/29 7:26 PM CDT documented as of this encounter Care Teams Manager Lighting Relationship Specialty Start Date End Date Yousif Benton MD [address] [address] PCP - General 12/27/16 06/07/17 Unknown, Notinfile PCP - General 06/08/17 06/17/17 Yousif Benton MD [address] [address] PCP - General 06/18/17 03/12/20 Micheal Burton MD [address] [place] [address] PCP - General Family Medicine 03/13/20 05/04/22 Tera Seals DO [address] [place] [address] PCP - General Family Medicine 05/05/22 Nl-Neuromuscle, [facility] - [address] [place] [address] Referring Physician Neurology 04/18/18 Yoselin Garcia, RN [address] [facility] [address] [place] [address] SHOP Outpatient Metal Pickling Equipment Operator 01/28/21 02/24/21 Ferny Kearns MD PhD [address] [facility] [address] [place] [address] Referring Physician Cardiology 04/21/21 Charu Galdamez, [facility] 45[address] [facility] ([facility]) Mailstop [phone] [place] [address] SHOP Outpatient Metal Pickling Equipment Operator 01/24/23 02/20/23 documented as of this encounter
--- OUTSIDE RECORDS SUMMARY | 2025-07-15 14:38 | XMS_ITS | Encounter Summary ---
Author Organization [facility] Address [address] [place] [address] Phone Care Team Providers Care Public Finance Specialist Name Role Phone Yousif Benton MD Primary Care Provider [phone] Nl-Neuromuscle, [place] - Unavailable Unavailab Micheal George MD Primary Care Provider Yoselin Garcia RN Unavailable [phone] Ferny Kearns MD PhD Unavailable [phone] Tera Seals DO Primary Care Provider Charu Galdamez [facility] Unavailable [phone] Encounter Details Date Type Department Care Team (Latest Contact Info) Description 11/01/2017 Orders Only [place] [facility] Scanning, Provider Social History Tobacco Use Types Packs/Day Years Used Date Smoking Tobacco: Never Comments Unknown Sex and Gender Information Value Date Recorded Sex Assigned at Not on file Legal Sex Female 6:53 AM COMMERCIAL LINES UNDERWRITER Gender Identity Not on file Sexual Orientation [...] COVID: Suspected 09/22/2021 09/22/2021 09/23/2021 3:06 AM COMMERCIAL LINES UNDERWRITER COVID: Suspected 11/11/2022 11/11/2022 11/11/2022 1:37 PM CDT C. difficile suspected 03/28/2025 03/28/202503/29 7:26 PM CDT documented as of this encounter Care Teams Public Finance Specialist Relationship Specialty Start Date End Date Yousif Benton MD [address] [facility] [place] [address] PCP - General 06/18/17 03/12/20 Micheal Burton MD [address] [place] [address] PCP - General Family Medicine 03/13/20 05/04/22 Tera Seals DO [address] [place] [address] PCP - General Family Medicine 05/05/22 Nl-Neuromuscle, [facility] [address] [place] [address] Referring Physician Neurology 04/18/18 Yoselin Garcia, RN [address] [address] SHOP Outpatient Outdoor Studies Director 01/28/21 02/24/21 Ferny Kearns MD PhD [address] [address] Referring Physician Cardiology 04/21/21 Charu Galdamez, [employer] 45[address] [facility] ([facility]) Mailstop [phone] [place] [address] SHOP Outpatient Outdoor Studies Director 01/24/23 02/20/23 documented as of this encounter
--- OUTSIDE RECORDS SUMMARY | 2025-07-15 14:38 | XMS_ITS | Encounter Summary ---
Author Organization [facility] Address [address] [place] [address] Phone Care Team Providers Care Rn Lactation Name Role Phone Nl-Keisha [place] - Unavailable Unavailab Ferny Harris MD PhD Unavailable Tera Seals DO Primary Care Provider Encounter Details Date Type Department Care Team (Late st Contact Info) Description 04/12/2023 Telephone [facility] Medicine Cardiology [address] [facility] Advanced Medicine 8th [place] [address] [place] [address] Ferny Kearns MD PhD [address] [facility] [address] [place], [place] [id number] Social History Tobacco Use Types Packs/Day Years [...] often do you attend chur ch or sikh services? Never 01/24/2023 Do you belong to any clubs o r organizations such as caodaism groups, unions, fraternal or athletic groups, or [...] on file Legal Sex Female 6:53 AM FINISH CARPENTER Gender Identity Not on file Sexual Orientation Not on file documented as of this encounter Plan of Treatment Not on file documented as of this encounter Visit Diagnoses Not on filedocumented in this encounter Additional Health Concerns Infection Onset Date Last Indicated Resolved Time C. difficile suspected 03/28/2025 03/28/202503/29 7:26 PM CDT documented as of this encounter Care Teams Rn Lactation Relationship Specialty Start Date End Date Tera Seals DO [address] [place] [address] PCP - General Family Medicine 05/05/22 Nl-Neuromuscle, [facility] - [address] [place] [address] Referring Physician Neurology 04/18/18 Ferny Kearns MD PhD [address] [place] [address] Referring Physician Cardiology 04/21/21 documented as of this encounter
--- OUTSIDE RECORDS SUMMARY | 2025-07-15 14:38 | XMS_ITS | Encounter Summary ---
Author Organization [facility] Address [address] [place] [address] Phone Care Team Providers Care Sales Representative Wire Rope Name Role Phone Yousif Benton MD Primary Care Provider [phone] Unknown, Notinfile Primary Care Provider Unavail able Yousif Benton MD Primary Care Provider [phone] -Neuromuscle, [facility] - Unavailable Unavailab Micheal George MD Primary Care Provider Yoselin Garcia RN Unavailable [phone] Ferny Kearns MD PhD Unavailable [phone] Tera Seals DO Primary Care Provider Charu Galdamez GREEN MARKETING ANALYST Unavailable [phone] Encounter Details Date Type Department Care Team (Late st Contact Info) Description 10/25/2015 Orders Only [facility] ADULT CLINCONV Seda Dueñas MD [address] [facility] [address] [place] [address] Social History Tobacco Use Types Packs/Day Years Used Date Smoking Tobacco: Never Comments Unknown Sex and Gender Information Value Date Recorded Sex Assigned at Not on file Legal Sex Female 6:53 AM EMS HELICOPTER PILOT Gender Identity Not on file Sexual Orientation [...] COVID: Suspected 09/22/2021 09/22/2021 09/23/2021 3:06 AM EMS HELICOPTER PILOT COVID: Suspected 11/11/2022 11/11/2022 11/11/2022 1:37 PM CDT C. difficile suspected 03/28/2025 03/28/202503/29 7:26 PM CDT documented as of this encounter Care Teams Sales Representative Wire Rope Relationship Specialty Start Date End Date Yousif Benton MD [address] [address] PCP - General 12/27/16 06/07/17 Unknown, Notinfile PCP - General 06/08/17 06/17/17 Yousif Benton MD [address] [address] PCP - General 06/18/17 03/12/20 Micheal Burton MD [address] [place] [address] PCP - General Family Medicine 03/13/20 05/04/22 Tera Seals DO [address] [place] [address] PCP - General Family Medicine 05/05/22 Nl-Neuromuscle, [facility] - [address] [place] [address] Referring Physician Neurology 04/18/18 Yoselin Garcia, RN [address] [facility] [address] [place] [address] SHOP Outpatient Boxing Trainer 01/28/21 02/24/21 Ferny Kearns MD PhD [address] [facility] [address] [place] [address] Referring Physician Cardiology 04/21/21 Charu Galdamez, [facility] [address] [facility] ([facility]) Mailstop [phone] [place] [address] SHOP Outpatient Boxing Trainer 01/24/23 02/20/23 documented as of this encounter
--- OUTSIDE RECORDS SUMMARY | 2025-07-15 14:38 | XMS_ITS | Encounter Summary ---
Author Organization [facility] Address [facility] [place] [address] Care Team Providers Care Pastry Cook Helper Name Role Phone Yousif Benton MD Primary Care Provider [phone] Micheal Burton MD Primary Care Provider [phone] Tera Seals DO Primary Care Provider [phone] Encounter Details Date Type Department Care Team (Late st Contact Info) Description 01/18/2019 Abstract [facility] CONVERSION [address] [place] [address] , Generic ConversionMD Social History Tobacco [...] on filedocumented in this encounter Care Teams Pastry Cook Helper Relationship Specialty Start Date End Date Yousif Benton MD [address] [place] [address] PCP - General FAMILY PRACTICE 04/18/19 09/12/20 Micheal Burton MD [address] [place] [address] PCP - General FAMILY PRACTICE 09/13/20 07/31/22 Tera Seals DO [address] [place] [address] PCP - General FAMILY PRACTICE 08/01/22 documented as of this encounter
--- OUTSIDE RECORDS SUMMARY | 2025-07-15 14:38 | XMS_ITS | Encounter Summary ---
Author Organization [facility] Address [address] [place] [address] Phone Care Team Providers Care Registered Nurse Supervisor Name Role Phone Yousif Benton MD Primary Care Provider Unknown, Notinfile Primary Care Provider Unavail able Yousif Benton MD Primary Care Provider [phone] Nl-Neuromuscle, Tawny - Unavailable Unavailab Micheal George MD Primary Care Provider Yoselin Garcia RN Unavailable [phone] Ferny Kearns MD PhD Unavailable [phone] Tera Seals DO Primary Care Provider Charu Galdamez SHIPBUILDING DRAFTSPERSON Unavailable [phone] Encounter Details Date Type Department Care Team (Late st Contact Info) Description 11/13/2013 Orders Only [facility] CAR CLINCONV Provider, MD Maame [address] [place] [address] Social History Tobacco Use Types Packs/Day Years Used Date Smoking Tobacco: Never Assessed Comments Unknown Sex and Gender Information Value Date Recorded Sex Assigned at Not on file Legal Sex Female 6:53 AM COMMERCIAL FRONT LOAD DRIVER Gender Identity Not on file Sexual Orientation [...] Suspected 09/22/2021 09/22/2021 09/23/2021 3:06 AM COMMERCIAL FRONT LOAD DRIVER COVID: Suspected 11/11/2022 11/11/2022 11/11/2022 1:37 PM CDT C. difficile suspected 03/28/2025 03/28/202503/29 7:26 PM CDT documented as of this encounter Care Teams Registered Nurse Supervisor Relationship Specialty Start Date End Date Yousif Benton MD [address] [place] [address] PCP - General 12/27/16 06/07/17 Unknown, Notinfile PCP - General 06/08/17 06/17/17 Yousif Benton MD [address] [place] [address] PCP - General 06/18/17 03/12/20 Micheal Burton MD [address] [place] [address] PCP - General Family Medicine 03/13/20 05/04/22 Tera Seals DO [address] [place] [address] PCP - General Family Medicine 05/05/22 Nl-Neuromuscle, [facility] - [address] [place] [address] Referring Physician Neurology 04/18/18 Yoselin Garcia, RN [address] [facility] [address] [place] [address] SHOP Outpatient Garment Parts Cutter Machine 01/28/21 02/24/21 Ferny Kearns MD PhD [address] [facility] [address] [place] [address] Referring Physician Cardiology 04/21/21 Charu Galdamez, [facility] 45[address] [facility] ([facility] Mailstop [phone] [place] [address] SHOP Outpatient Garment Parts Cutter Machine 01/24/23 02/20/23 documented as of this encounter
--- OUTSIDE RECORDS SUMMARY | 2025-07-15 14:38 | XMS_ITS | Encounter Summary ---
Author Organization [facility] Address [address] [place] [address] Phone Care Team Providers Care Thermometer Production Worker Name Role Phone Yousif Benton MD Primary Care Provider [phone] Unknown, Notinfile Primary Care Provider Unavail able Yousif Benton MD Primary Care Provider [phone] Nl-Neuromuscle, Tawny - Unavailable Unavailab Micheal George MD Primary Care Provider Yoselin Garcia RN Unavailable [phone] Ferny Kearns MD PhD Unavailable [phone] Tera Seals DO Primary Care Provider Charu Galdamez MANAGER CABLE Unavailable [phone] Encounter Details Date Type Department Care Team (Late st Contact Info) Description 02/29/2016 Orders Only WUCEDRIC DANGELO CAR CLINCONV Provider, MD Maame [address] [place] [address] Social History Tobacco Use Types Packs/Day [...] documented as of this encounter Care Teams Thermometer Production Worker Relationship Specialty Start Date End Date Yousif Benton MD [address] [address] PCP - General 12/27/16 06/07/17 Unknown, Notinfile PCP - General 06/08/17 06/17/17 Yousif Benton MD [address] [address] PCP - General 06/18/17 03/12/20 Micheal Burton MD [address] [place] [address] PCP - General Family Medicine 03/13/20 05/04/22 Tera Seals DO [address] [place] [address] PCP - General Family Medicine 05/05/22 Nl-Neuromuscle, [facility] - [address] [place] [address] Referring Physician Neurology 04/18/18 Yoselin Garcia, RN 45[address] [facility] [address] [place] [address] SHOP Outpatient Primary Counselor 01/28/21 02/24/21 Ferny Kearns MD PhD 45[address] [facility] [address] [place] [address] Referring Physician Cardiology 04/21/21 Charu Galdamez, MANAGER CABLE 4590 [facility] ([facility] [place] Mailstop [phone] [place] [address] SHOP Outpatient Primary Counselor 01/24/23 02/20/23 documented as of this encounter
--- OUTSIDE RECORDS SUMMARY | 2025-07-15 14:38 | XMS_ITS | Encounter Summary ---
Author Organization [facility] Address [address] [place] [address] Phone Care Team Providers Care Marketing Content Manager Name Role Phone Yousif Benton MD Primary Care Provider [phone] Unknown, Notinfile Primary Care Provider Unavail able Yousif Benton MD Primary Care Provider [phone] Nl-Neuromuscle, Tawny - Unavailable Unavailab Micheal George MD Primary Care Provider Yoselin Garcia RN Unavailable [phone] Ferny Kearns MD PhD Unavailable [phone] Tera Seals DO Primary Care Provider Charu Galdamez DAMAGE PREVENTION COORDINATOR Unavailable [phone] Encounter Details Date Type Department Care Team (Late st Contact Info) Description 01/07/2016 Orders Only WUCEDRIC DANGELO CAR CLINCONV Provider, MD Maame [address] [place] [address] Social History Tobacco Use Types Packs/Day Years Used Date Smoking Tobacco: Never Comments Unknown Sex and Gender Information Value Date Recorded Sex Assigned at Not on file Legal Sex Female 6:53 AM ROPE TWISTING MACHINE OPERATOR Gender Identity Not on file [...] COVID: Suspected 09/22/2021 09/22/2021 09/23/2021 3:06 AM ROPE TWISTING MACHINE OPERATOR COVID: Suspected 11/11/2022 11/11/2022 11/11/2022 1:37 PM CDT C. difficile suspected 03/28/2025 03/28/202503/29 7:26 PM CDT documented as of this encounter Care Teams Marketing Content Manager Relationship Specialty Start Date End Date Yousif Benton MD [address] [place] [address] PCP - General 12/27/16 06/07/17 Unknown, Notinfile PCP - General 06/08/17 06/17/17 Yousif Benton MD [address] [place] [address] PCP - General 06/18/17 03/12/20 Micheal Burton MD [address] [place] [address] PCP - General Family Medicine 03/13/20 05/04/22 Tera Seals DO [address] [place] [address] PCP - General Family Medicine 05/05/22 Nl-Neuromuscle, [facility] - [address] [place] [address] Referring Physician Neurology 04/18/18 Yoselin Garcia, RN 4590 [facility] [address] [place] [address] SHOP Outpatient Lockmaker 01/28/21 02/24/21 Ferny Kearns MD PhD 4590 [facility] [address] [place] [address] Referring Physician Cardiology 04/21/21 Charu Galdamez, DAMAGE PREVENTION COORDINATOR 4590 [facility] ([place]) Mailstop [phone] [place] [address] SHOP Outpatient Lockmaker 01/24/23 02/20/23 documented as of this encounter
--- OUTSIDE RECORDS SUMMARY | 2025-07-15 14:38 | XMS_ITS | Encounter Summary ---
Author Organization [facility] Address [address] [place] [address] Phone Care Team Providers Care Route Returner Name Role Phone Yousif Benton MD Primary Care Provider [phone] Unknown, Notinfile Primary Care Provider Unavail able Yousif Benton MD Primary Care Provider [phone] Nl-Neuromuscle, Tawny - Unavailable Unavailab Micheal George MD Primary Care Provider Yoselin Garcia RN Unavailable [phone] Ferny Kearns MD PhD Unavailable [phone] Tera Seals DO Primary Care Provider Charu Galdamez RETAIL SALES ASSISTANT Unavailable [phone] Encounter Details Date Type Department Care Team (Late st Contact Info) Description 03/26/2014 Orders Only WUCEDRIC DANGELO CAR CLINCONV Provider, MD Maame [address] [place] [address] Social History Tobacco Use Types Packs/Day Years Used Date Smoking Tobacco: Never Assessed Comments Unknown Sex and Gender Information Value Date Recorded Sex Assigned at Not on file Legal Sex Female 6:53 AM MOTOR VEHICLE OR CARAVAN SALESPERSON Gender Identity Not on file Sexual Orientation [...] provider. us Historical Provider [facility] PATIRCK MOLINA Final Result documented in this encounter Visit Diagnoses Not on filedocumented in this encounter Additional Health Concerns Infection Onset Date Last Indicated Resolved Time COVID: Suspected 09/22/2021 09/22/2021 09/23/2021 3:06 AM MOTOR VEHICLE OR CARAVAN SALESPERSON COVID: Suspected 11/11/2022 11/11/2022 11/11/2022 1:37 PM CDT C. difficile suspected 03/28/2025 03/28/202503/29 7:26 PM CDT documented as of this encounter Care Teams Route Returner Relationship Specialty Start Date End Date Yousif Benton MD [address] [address] PCP - General 12/27/16 06/07/17 Unknown, Notinfile PCP - General 06/08/17 06/17/17 Yousif Benton MD [address] [address] PCP - General 06/18/17 03/12/20 Micheal Burton MD [address] [place] [address] PCP - General Family Medicine 03/13/20 05/04/22 Tera Seals DO [address] [place] [address] PCP - General Family Medicine 05/05/22 Nl-Neuromuscle, [facility] - [address] [place] [address] Referring Physician Neurology 04/18/18 Yoselin Garcia, RN 4590 [facility] [address] [place] [address] SHOP Outpatient Hook And Eye Attacher 01/28/21 02/24/21 Ferny Kearns MD PhD 4590 [facility] [address] [place] [address] Referring Physician Cardiology 04/21/21 Charu Galdamez, [facility] 4590 [facility] ([facility] [place]) Mailstop [phone] [place] [address] SHOP Outpatient Hook And Eye Attacher 01/24/23 02/20/23 documented as of this encounter
--- OUTSIDE RECORDS SUMMARY | 2025-07-15 14:38 | XMS_ITS | Encounter Summary ---
Author Organization [facility] Address [address] [place] [address] Phone Care Team Providers Care Edge Cutting Machine Operator Name Role Phone Nl-Tawny Valdes - Unavailable Unavailab Ferny Harris MD PhD Unavailable [phone] Tera Seals DO Primary Care Provider Charu Galdamez [facility] Unavailable [phone] Encounter Details Date Type Department Care Team [...] often do you attend chur ch or mandaen services? Never 11/10/2022 Do you belong to [...] place to sleep or slept in a group home (including now)? No 11/10/2022 Comments No Sex and Gender Information Value Date Recorded Sex Assigned at Not on file Legal Sex Female 6:53 AM CATALOG LIBRARY ASSISTANT Gender Identity Not on file Sexual [...] documented as of this encounter Care Teams Edge Cutting Machine Operator Relationship Specialty Start Date End Date Tera Seasl DO [address] [place] [address] PCP - General Family Medicine 05/05/22 Nl-Neuromuscle, [facility] - [address] [place] [address] Referring Physician Neurology 04/18/18 Ferny Kearns MD PhD [address] [place] [address] Referring Physician Cardiology 04/21/21 Charu Galdamez, TOPPER PRESS OPERATOR AUTOMATIC 4590 [facility] ([facility] [place] Mailstop [phone] [place] [address] SHOP Outpatient Pricing/Signage Team Member 01/24/23 02/20/23 documented as of this encounter
--- OUTSIDE RECORDS SUMMARY | 2025-07-15 14:38 | XMS_ITS | Encounter Summary ---
Author Organization [facility] Address [address] [place] [address] Phone Care Team Providers Care Assembly Stock Supervisor Name Role Phone Yousif Benton MD Primary Care Provider [phone] Nl-Neuromuscle, Wusm - Unavailable Unavailab Micheal George MD Primary Care Provider Yoselin Garcia RN Unavailable [phone] Ferny Kearns MD PhD Unavailable [phone] Tera Seals DO Primary Care Provider Charu Galdamez [facility] Unavailable [phone] Encounter Details Date Type Department Care Team (Late st Contact Info) Description 04/23/2019 Telephone [facility] ([facility] - [facility] Medicine Urology [address] [facility] Advanced Medicine 11th [place] [address] [place] [address] Nolvia Garcia Social History Tobacco Use Types Packs/Day Years Used Date Smoking Tobacco: Never Smokeless Tobacco: Never Alcohol Use Standard Drinks/Week Comments No 0 (1 standard drink = 0.6 oz pur e alcohol) Comments No Sex and Gender Information Value Date Recorded Sex Assigned at Not on file Legal Sex Female 6:53 AM TRAIN CREW MEMBER Gender Identity Not on file Sexual Orientation Not on file documented as of this encounter Plan of Treatment Not on file documented as of this encounter Visit Diagnoses Not on filedocumented in this encounter Additional Health Concerns Infection Onset Date Last Indicated Resolved Time COVID: Suspected 09/22/2021 09/22/2021 09/23/2021 3:06 AM TRAIN CREW MEMBER COVID: Suspected 11/11/2022 11/11/2022 11/11/2022 1:37 PM CDT C. difficile suspected 03/28/2025 03/28/202503/29 7:26 PM CDT documented as of this encounter Care Teams Assembly Stock Supervisor Relationship Specialty Start Date End Date Yousif Benton MD [address] [facility] [place] [address] PCP - General 06/18/17 03/12/20 Micheal Burton MD [address] [place] [address] PCP - General Family Medicine 03/13/20 05/04/22 Tera Seals DO [address] [place] [address] PCP - General Family Medicine 05/05/22 Nl-Neuromuscle, [facility] [address] [place] [address] Referring Physician Neurology 04/18/18 Yoselin Garcia, RN [address] [address] [facility] Outpatient Office Technologist 01/28/21 02/24/21 Ferny Kearns MD PhD 4590 [facility] [address] [place] [address] Referring Physician Cardiology 04/21/21 Charu Galdamez, [facility] 4590 [facility] ([facility] [place] Mailstop [phone] [place] [address] SHOP Outpatient Office Technologist 01/24/23 02/20/23 documented as of this encounter
--- OUTSIDE RECORDS SUMMARY | 2025-07-15 14:38 | XMS_ITS | Clinical Summary ---
Author Organization [facility] Address [address] [place] [address] Phone Care Team Providers Care Staff Pharmacist Hospital Name Role Phone Unavailable Primary Care Provider Unavailabl e Social History Tobacco Use Types Packs/Day Years Used Date Smoking Tobacco: Never Assessed Comments Unknown Sex and Gender Information Value Date Recorded Sex Assigned at Not on file Legal Sex Female 3:14 PM TELEPHONE ANSWERING SERVICE OPERATOR Gender Identity Not on file Sexual Orientation Not on file Plan of Treatment Not on file
--- OUTSIDE RECORDS SUMMARY | 2025-07-15 14:38 | XMS_ITS | Encounter Summary ---
Author Organization [facility] Address [address] [place] [address] Phone Care Team Providers Care Solderer Electronic Name Role Phone Yousif Benton MD Primary Care Provider Nl-Neuromuscle, Wusm - Unavailable Unavailab Micheal George MD Primary Care Provider Yoselin Garcia RN Unavailable [phone] Ferny Kearns MD PhD Unavailable [phone] Tera Seals DO Primary Care Provider Charu Galdamez [facility] Unavailable [phone] Encounter Details Date Type Department Care Team [...] on file Legal Sex Female 6:53 AM DOCK LOADER Gender Identity Not on file Sexual Orientation [...] COVID: Suspected 09/22/2021 09/22/2021 09/23/2021 3:06 AM DOCK LOADER COVID: Suspected 11/11/2022 11/11/2022 11/11/2022 1:37 PM CDT C. difficile suspected 03/28/2025 03/28/202503/29 7:26 PM CDT documented as of this encounter Care Teams Solderer Electronic Relationship Specialty Start Date End Date Yousif Benton MD [address] [facility] [place] [address] PCP - General 06/18/17 03/12/20 [facility] [address] [place] [address] PCP - General Family Medicine 03/13/20 05/04/22 Tera Seals DO [address] [place] [address] PCP - General Family Medicine 05/05/22 -Neuromuscle, [facility] - [address] [place] [address] Referring Physician Neurology 04/18/18 Yoselin Garcia, DELILAH [address] [address] SHOP Outpatient Geomatics Professor 01/28/21 02/24/21 Ferny Kearns MD PhD [address] [address] Referring Physician Cardiology 04/21/21 Charu Galdamez, JODY 4571 [facility] [place] [place] [facility] [place] Mailstop [phone] [place] [address] SHOP Outpatient Geomatics Professor 01/24/23 02/20/23 documented as of this encounter
--- OUTSIDE RECORDS SUMMARY | 2025-07-15 14:38 | XMS_ITS | Encounter Summary ---
Author Organization [facility] Address [address] [place] [address] Phone Care Team Providers Care Purchasing Associate Name Role Phone Yousif Benton MD Primary Care Provider [phone] Unknown, Notinfile Primary Care Provider Unavail able Yousif Benton MD Primary Care Provider [phone] Nl-Neuromuscle, Tawny - Unavailable Unavailab Micheal George MD Primary Care Provider Yoselin Garcia RN Unavailable [phone] Ferny Kearns MD PhD Unavailable Tera Seals DO Primary Care Provider Charu Galdamez AD TAKER Unavailable [phone] Encounter Details Date Type Department Care Team (Late st Contact Info) Description 08/10/2014 Orders Only WUCEDRIC DANGELO CAR CLINCONV Provider, MD Maame [address] [place] [address] Social History Tobacco Use Types Packs/Day Years Used Date Smoking Tobacco: Never Assessed Comments Unknown Sex and Gender Information Value Date Recorded Sex Assigned at Not on file Legal Sex Female 6:53 AM 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 difficile suspected 03/28/2025 03/28/202503/29 7:26 PM CDT documented as of this encounter Care Teams Purchasing Associate Relationship Specialty Start Date End Date Yousif Benton MD [address] [address] PCP - General 12/27/16 06/07/17 Unknown, Notinfile PCP - General 06/08/17 06/17/17 Yousif Benton MD [address] [place] [address] PCP - General 06/18/17 03/12/20 Micheal Burton MD [address] [place] [address] PCP - General Family Medicine 03/13/20 05/04/22 Tera Seals DO [address] [place] [address] PCP - General Family Medicine 05/05/22 Nl-Neuromuscle, [facility] - [address] [place] [address] Referring Physician Neurology 04/18/18 Yoselin Garcia, RN 4590 [facility] [address] [place] [address] SHOP Outpatient Architect Intern 01/28/21 02/24/21 Ferny Kearns MD PhD [address] [facility] [address] [place] [address] Referring Physician Cardiology 04/21/21 Charu Galdamez, [facility] 4590 [facility] ([facility] [place] Mailstop [phone] [place] [address] SHOP Outpatient Architect Intern 01/24/23 02/20/23 documented as of this encounter
--- OUTSIDE RECORDS SUMMARY | 2025-07-15 14:38 | XMS_ITS | Encounter Summary ---
Author Organization [facility] Address [address] [place] [address] Care Team Providers Care Pick Remover Name Role Phone Nl-Neuromuscle, Wusm - Unavailable Unavailab Micheal George MD Primary Care Provider Yoselin Garcia RN Unavailable [phone] Ferny Kearns MD PhD Unavailable Tera Seals DO Primary Care Provider Charu Galdamez [facility] Unavailable Encounter Details Date Type Department Care Team (Late st Contact Info) Description 09/09/2020 Telephone [facility] [address] [address] [facility] [address] Jessica Ramos, RT Social History Tobacco Use Types Packs/Day Years Used Date Smoking Tobacco: Never Smokeless Tobacco: Never Alcohol Use Standard Drinks/Week Comments No 0 (1 standard drink = 0.6 oz pur e alcohol) Comments No Sex and Gender Information Value Date Recorded Sex Assigned at Not on file Legal Sex Female 6:53 AM APPEALS SPECIALIST Gender Identity Not on file Sexual Orientation Not on file documented as of this encounter Functional Status documented as of this encounter Plan of Treatment Not on file documented as of this encounter Visit Diagnoses Not on filedocumented in this encounter Additional Health Concerns Infection Onset Date Last Indicated Resolved Time COVID: Suspected 09/22/2021 09/22/2021 09/23/2021 3:06 AM APPEALS SPECIALIST COVID: Suspected 11/11/2022 11/11/2022 11/11/2022 1:37 PM CDT C. difficile suspected 03/28/2025 03/28/202503/29 7:26 PM CDT documented as of this encounter Care Teams Pick Remover Relationship Specialty Start Date End Date Micheal Burton MD [address] [place] [address] PCP - General Family Medicine 03/13/20 05/04/22 Tera Seals DO [address] [place] [address] PCP - General Family Medicine 05/05/22 Nl-Neuromuscle, [facility] [address] [place] [address] Referring Physician Neurology 04/18/18 Yoselin Garcia, RN [address] [address] [employer] Outpatient Fisher Purse Seine 01/28/21 02/24/21 Ferny Kearns MD PhD [address] [address] Referring Physician Cardiology 04/21/21 Charu Galdamez, [facility] 4590 [facility] ([facility] [phone] [place] [address] SHOP Outpatient Fisher Purse Seine 01/24/23 02/20/23 documented as of this encounter
--- OUTSIDE RECORDS SUMMARY | 2025-07-15 14:38 | XMS_ITS | Clinical Summary ---
Author Organization [facility] Address [address] [facility] [place] [address] Care Team Providers Care Supervisor Tank Storage Name Role Phone Unavailable Primary Care Provider Unavailabl e Source Comments [facility],non-owned Affiliates and Associated Physician Practices is amultiple site organization consisting of ambulatory clinics and hospital sitesin [place], [place], [place] and [place]. This disclosure is being madepursuant to the Care Everywhere program and may not contain all information available regarding this patient. Last updated 18.[facility] [employer] Dragon Allergies Active Allergy Reactions Criticality Noted Date [...] 2 times daily 04/21/2021 Active Glucosamine-Cho ndroitin 6883-5273 MG/30ML Take 1,500 mg by mouth 2 [...] yrs (1 - 1-dose 75+ series) 2021 DEPRESSION SCREENING 08/13/2024 MEDICARE AWV CALENDAR YEAR 2024 COVID-19 VACCINE ( - 2024- season) 2025 INFLUENZA VACCINE (#1) 2025 0, 04/13/2020, 05/15/2019, Additional history exists HEPATITIS B [...] patient's age to complete this topic Insurance [facility] MANAGED MEDICARE ADV [facility] MANAGED MEDICARE ADV [employer] MEDICARE ADV AETNA MEDICARE ADV
--- OUTSIDE RECORDS SUMMARY | 2025-07-15 14:38 | XMS_ITS | Encounter Summary ---
Author Organization [facility] Address [address] [place] [address] Phone Care Team Providers Care Follow Up Manager Name Role Phone Yousif Benton MD Primary Care Provider [phone] Unknown, Notinfile Primary Care Provider Unavail able Yousif Benton MD Primary Care Provider [phone] Nl-Neuromuscle, Tawny - Unavailable Unavailab Micheal George MD Primary Care Provider Yoselin Garcia RN Unavailable [phone] Ferny Kearns MD PhD Unavailable [phone] Tera Seals DO Primary Care Provider Charu Galdamez [employer] Unavailable [phone] Encounter Details Date Type Department Care Team (Late st Contact Info) Description 07/31/2014 Orders Only WUCEDRIC DANGELO CAR CLINCONV Provider, MD Maame [address] [place] [address] Social History Tobacco Use Types Packs/Day Years Used Date Smoking Tobacco: Never Assessed Comments Unknown Sex and Gender Information Value Date Recorded Sex Assigned at Not on file Legal Sex Female 6:53 AM FIELD CANE SCALER HELPER Gender Identity Not on file Sexual [...] COVID: Suspected 09/22/2021 09/22/2021 09/23/2021 3:06 AM FIELD CANE SCALER HELPER COVID: Suspected 11/11/2022 11/11/2022 11/11/2022 1:37 PM CDT C. difficile suspected 03/28/2025 03/28/202503/29 7:26 PM CDT documented as of this encounter Care Teams Follow Up Manager Relationship Specialty Start Date End Date Yousif Benton MD [address] [place] [address] PCP - General 12/27/16 06/07/17 Unknown, Notinfile PCP - General 06/08/17 06/17/17 Yousif Benton MD [address] [place] [address] PCP - General 06/18/17 03/12/20 Micheal Burton MD [address] [place] [address] PCP - General Family Medicine 03/13/20 05/04/22 Tera Seals DO [address] [place] [address] PCP - General Family Medicine 05/05/22 Nl-Neuromuscle, [facility] - [address] [place] [address] Referring Physician Neurology 04/18/18 Yoselin Garcia, RN 4590 [facility] [address] [place] [address] SHOP Outpatient Commodity Supervisor 01/28/21 02/24/21 Ferny Kearns MD PhD 45[address] [facility] [address] [place] [address] Referring Physician Cardiology 04/21/21 Charu Galdamez, [facility] 4590 [facility] ([facility] Mailstop [phone] [place] [address] SHOP Outpatient Commodity Supervisor 01/24/23 02/20/23 documented as of this encounter
--- OUTSIDE RECORDS SUMMARY | 2025-07-15 14:38 | XMS_ITS | Encounter Summary ---
Author Organization [facility] Address [address] [place] [address] Phone Care Team Providers Care Nicu Rn Name Role Phone Yousif Benton MD Primary Care Provider Unknown, Notinfile Primary Care Provider Unavail able Yousif Benton MD Primary Care Provider [phone] Nl-Neuromuscle, [place] - Unavailable Unavailab Micheal George MD Primary Care Provider Yoselin Garcia RN Unavailable [phone] Ferny Kearns MD PhD Unavailable Tera Seals DO Primary Care Provider Charu Galdamez CRIMINAL RESEARCHER Unavailable [phone] Encounter Details Date Type Department Care Team (Late st Contact Info) Description 08/14/2013 Orders Only [facility] CLINCONV Provider, MD Maame [address] [place] [id number] Social History Tobacco Use Types Packs/Day Years Used Date Smoking Tobacco: Never Assessed Comments Unknown Sex and Gender Information Value Date Recorded Sex Assigned at Not on file Legal Sex Female 6:53 AM SERGEANT OF CORRECTIONS Gender Identity Not on file Sexual Orientation [...] COVID: Suspected 09/22/2021 09/22/2021 09/23/2021 3:06 AM SERGEANT OF CORRECTIONS COVID: Suspected 11/11/2022 11/11/2022 11/11/2022 1:37 PM CDT C. difficile suspected 03/28/2025 03/28/202503/29 7:26 PM CDT documented as of this encounter Care Teams Nicu Rn Relationship Specialty Start Date End Date Yousif Benton MD [address] [address] PCP - General 12/27/16 06/07/17 Unknown, Notinfile PCP - General 06/08/17 06/17/17 Yousif Benton MD [address] [place] [address] PCP - General 06/18/17 03/12/20 Micheal Burton MD [address] [place] [address] PCP - General Family Medicine 03/13/20 05/04/22 Tera Seals DO [address] [place] [address] PCP - General Family Medicine 05/05/22 Nl-Neuromuscle, [facility] - [address] [place] [address] Referring Physician Neurology 04/18/18 Yoselin Garcia, RN [address] [facility] [address] [place] [address] [facility] Outpatient Regional Engagement Consultant 01/28/21 02/24/21 Ferny Kearns MD PhD [address] [facility] [address] [place] [address] Referring Physician Cardiology 04/21/21 Charu Galdamez, [facility] [address] [facility] ([facility] Mailstop [phone] [place] [address] SHOP Outpatient Regional Engagement Consultant 01/24/23 02/20/23 documented as of this encounter
--- OUTSIDE RECORDS SUMMARY | 2025-07-15 14:38 | XMS_ITS | Clinical Summary ---
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 GERD (gastroesophageal reflux disease) 8 Resolved [...] Comments Blood Pressure 154/93 08/05/2022 6:22 AM PARTS SALES COUNTERPERSON Pulse 83 08/05/2022 6:22 AM PARTS SALES COUNTERPERSON Temperature 36.6 C (97.9 F) 08/05/2022 6:22 AM PARTS SALES COUNTERPERSON Respiratory Rate 20 08/04/2022 7:42 PM PARTS SALES COUNTERPERSON Oxygen Saturation 92% 08/05/2022 6:22 AM PARTS SALES COUNTERPERSON Inhaled Oxygen Concentration - - Weight 83.3 kg (183 lb 10.3 oz) 08/02/2022 2:14 AM PARTS SALES COUNTERPERSON Height 172.7 cm (5' 8) 08/02/2022 2:14 AM PARTS SALES COUNTERPERSON Body Mass Index 27.92 08/02/2022 2:14 AM PARTS SALES COUNTERPERSON Plan of Treatment Health Maintenance Due Date Last Done Comments Hepatitis C 1964 DTaP, Tdap and Td Vaccines (1 - Tdap) 1965 Zoster Vaccines (1 of 2) 1996 Annual Medicare Wellness Visit 2011 RSV Immunization or 60+ Years (1 - 1-dose 75+ series) 2021 COVID-19 Vaccine ( - 2024- season) 2025 Influenza Adult (#1) 2025 05/10/2020, 04/13/2020, 05/15/2019, Additional history exists Pneumococcal Vaccine: 50+ Years Completed 07/31/2017, 06/29/2016 Dexa Scan (General) Completed 01/16/2022 Colorectal Cancer Screening Colonoscopy (10 Years) Discontinued 08/04/2022, 08/04/2022 Hepatitis A Vaccines Aged Out No long er eligible based on patient's age to complete this topic Meningococcal B Vaccine Aged Out No l [...] at home upon discharge Lifestyle Yes Hilda Sainz, pharmacy intern Procedure Name Priority Date/Time Associated Diagnosis Comments COLONOSCOPY Routine 08/04/2022 8:56 AM PARTS SALES COUNTERPERSON BONE DENSITY/DEXA Routine 01/16/2022 3:1 9 PM CDT Osteoporosis, senile from Last 3 Months or Most Recently Relevant to Health Maintenance Results * Colonoscopy (08/04/2022 8:56 AM PARTS SALES COUNTERPERSON) Meena Oneill NP GI PROCEDURE ORDERABLES F [...] Relevant to Health Maintenance Insurance MED REPLACE [facility] MEDICARE [place] [id number] MED REPLACE [facility] MEDICARE [place] [id number] Advance Directives * Full Code (Latest Code Status on File) Date Activated Date Inactivated Comments 08/02/2022 2:49 AM 08/05/2022 3:20 PM * Full Code Date Activated Date Inactivated Comments 06/03/2020 9:28 PM 06/04/2020 3:31 PM Care Teams Lumber Marker Relationship Specialty Start Date End Date Tera Seals DO [address] [place] [address] PCP - General FAMILY PRACTICE 08/01/22
--- OUTSIDE RECORDS SUMMARY | 2025-07-15 14:38 | XMS_ITS | Encounter Summary ---
Author Organization [facility] Address [address] [place] [address] Phone Care Team Providers Care Folding Machine Feeder Name Role Phone Yousif Benton MD Primary Care Provider [phone] Nl-Neuromuscle, [place] - Unavailable Unavailab Micheal George MD Primary Care Provider Yoselin Garcia RN Unavailable [phone] Ferny Kearns MD PhD Unavailable [phone] Tera Seals DO Primary Care Provider Charu Galdamez [facility] Unavailable [phone] Encounter Details Date Type Department Care Team [...] on file Legal Sex Female 6:53 AM TABLET REPAIR Gender Identity Not on file Sexual Orientation [...] COVID: Suspected 09/22/2021 09/22/2021 09/23/2021 3:06 AM TABLET REPAIR COVID: Suspected 11/11/2022 11/11/2022 11/11/2022 1:37 PM CDT C. difficile suspected 03/28/2025 03/28/202503/29 7:26 PM CDT documented as of this encounter Care Teams Folding Machine Feeder Relationship Specialty Start Date End Date Yousif Benton MD [address] [facility] [place] [address] PCP - General 06/18/17 03/12/20 [facility] [address] [place] [address] PCP - General Family Medicine 03/13/20 05/04/22 Tera Seals DO [address] [place] [address] PCP - General Family Medicine 05/05/22 -Neuromuscle, [facility] - [address] [place] [address] Referring Physician Neurology 04/18/18 Yoselin Garcia, DELILAH [address] [address] SHOP Outpatient Front Desk Specialist 01/28/21 02/24/21 Ferny Kearns MD PhD [address] [address] Referring Physician Cardiology 04/21/21 Charu Galdamez, JODY [address] [facility] ([facility] Mailstop [phone] [place] [address] SHOP Outpatient Front Desk Specialist 01/24/23 02/20/23 documented as of this encounter
[2025-07-15 14:51] LABS: Ferritin 193.00 ng/mL (11.1-264)
== END 2025-07-15 13:23 | disposition home or self-care (01) ==
LOC: CHSLAB 13:23
PROVIDERS: PCP Family Medicine; Visit Provider Family Medicine
DX: D50.9 Iron deficiency anemia, unspecified (principal)
CPT/HCPCS: 36415; 82728; 83540; 83550; 85025